=== PATIENT | male | born 1940 | race Caucasian/White ===

== ENCOUNTER → 2016-04-15 | Outpatient (CLI) | payer MEDICARE, BC ==
[2016-04-15 11:36] LABS: Blood Urea Nitrogen 20 mg/dL (9-20); Non-African American GFR(MDRD) >60 (>60 ml/min/1.73 sqM)
--- NOTE | 2016-04-15 13:50 | CT ---
EXAMINATION TYPE: CT abdomen pelvis w con DATE OF EXAM: 04/15/2016 1:32 PM REFERENCE: Previous study dated 03/23/2015 HISTORY: [id number] Rt Lower Quad Pain HISTORY: Patient complains or RLQ pain. REFERENCE: NONE CT DLP: 1724 mGy Automated exposure control for dose reduction was used. TECHNIQUE: Helical acquisition through the abdomen and pelvis was obtained following the oral ingesti on of with Oral Contrast and following intravenous administration of 100 mL of Omnipaque 300. The surendra a was reformatted in axial, coronal and sagittal projections. FINDINGS: There is minimal dependent atelectasis at the lung bases. There is no pleural or pericardi al fluid. The heart is not enlarged. Within the abdomen, the gallbladder has been removed. The liver and spleen are unremarkable. There is prominence of the common bile duct. Both adrenal glands are normal. There are multiple, simple appearing renal cysts bilaterally. The largest on the right measures 1.2 c m. Largest on the left measures 1.9 cm. The pancreas appears unremarkable. There is moderate atheromatous calcification of the visualized arterial tree. There is no significant retroperitoneal, iliac or inguinal adenopathy. There is mild calcification of the prostate. The bladder is unremarkable. There is no significant diverticular change and there is no radiographic evidence of diverticulitis. The appendix is not visualized. Small bowel loops appear unremarkable. No free fluid and no free air is seen. There is a previous anterior abdominal wall hernia repair. There is soft tissue density in the anterior abdominal wall fat on the right. This may be due to subc utaneous injections. Bruising would be another cause. There is a 2.1 x 4.1 cm soft tissue density in the inguinal region on the right. This may represent i nflammatory change. There is degenerative disc disease, hypertrophic spondylosis and facet arthropathy in the spine. IMPRESSION: 1. MULTIPLE, BILATERAL SIMPLE APPEARING RENAL CYSTS. 2. POSTSURGICAL CHANGE. 3. INDURATION OF THE ANTERIOR ABDOMINAL WALL FAT ON THE RIGHT. PLEASE CORRELATE FOR BRUISING. 4. SOFT TISSUE DENSITY IN THE INGUINAL REGION ON THE RIGHT MAY BE INFLAMMATORY IN NATURE. PLEASE MARIA EUGENAI ELATE CLINICALLY. 5. DEGENERATIVE CHANGE WITHIN THE SPINE.
== END | disposition home or self-care (01) ==
LOC: RADCTMAIN 10:44
PROVIDERS: ATTEND Surgery Plastic and Reconstructive Surgery
DX: N28.1 Cyst of kidney, acquired (principal); M79.89 Other specified soft tissue disorders; Z98.890 Other specified postprocedural states
CPT/HCPCS: 82565; 84520; 74177; 36415; Q9967

== ENCOUNTER 2016-04-18 19:22 | Emergency (ER) | payer MEDICARE, BC ==
[2016-04-18] MEDS ORDERED: predniSONE 20 MG TAB PO STA (20:18)
[2016-04-18] MEDS ORDERED: FAMOTIDINE 20 MG TAB PO STA (20:18)
[2016-04-18] MEDS ORDERED: diphenhydrAMINE 50 MG CAP PO STA (20:18)
--- NOTE | 2016-04-18 20:22 | ED ---
General Adult HPI - General Chief complaint: Skin/Abscess/Foreign Body Stated complaint: Rash all over Source: patient, family, RN notes reviewed Mode of arrival: ambulatory Limitations: no limitations - History of Present Illness Initial comments: Chief complaint and history of present illness this is a 76-year-old male here with his . Patient reports she had some itchy skin and his noted that he had redness on his back which is since gone away now is down to the legs. The patient did have IV contrast material yesterday while having a CAT scan. [place] other ALLERGIES have been penicillin in the past and a surgical scrub when he had his knee done. No difficulty with breathing, no wheezing. No hypotension. No his. Just a flushed read rash. - Related Data Home Medications Medication Instructions Recorded Confirmed INSULIN LISPRO (humaLOG) [humaLOG See Protocol SQ ACHS PRN 11/07/13 04/18/16 (formulary)] Meclizine [Antivert] 25 mg PO DAILY PRN 11/07/13 04/18/16 amLODIPine [Norvasc] 10 mg PO W/SUPPER 11/07/13 04/18/16 ALPRAZolam [Xanax] 0.5 mg PO TID PRN 03/23/15 04/18/16 Amiodarone [Cordarone] 200 mg PO W/SUPPER 03/23/15 04/18/16 Aspirin [Adult Low Dose Aspirin EC] 81 mg PO W/SUPPER 03/23/15 04/18/16 Tamsulosin HCl [Flomax] 0.4 mg PO W/SUPPER PRN 03/23/15 04/18/16 Gabapentin [Neurontin] 400 mg PO Q8HR PRN 04/07/15 04/18/16 Cholecalciferol [Vitamin D3] 1,000 unit PO DAILY 07/14/15 04/18/16 Insulin Glargine [Lantus] 52 unit SQ HS 07/14/15 04/18/16 HYDROcodone/APAP 7.5-325MG [[place] 1 tab PO Q6H PRN 09/22/15 04/18/16 7.5-325] Previous Rx's Medication Instructions Recorded Famotidine [Pepcid] 20 mg PO BID #6 tablet 04/18/16 predniSONE 20 mg PO DAILY #3 tab 04/18/16 Allergies Allergy/AdvReac Type Severity Reaction Status Date / Time Penicillins Allergy Swelling Verified 04/18/16 20:06 Surgical Scrub AdvReac Unknown Itching, Uncoded 12/29/15 12:16 Red skin Review of Systems ROS Statement: Those systems with pertinent positive or pertinent negative responses have been documented in the HPI. Review of systems no visual acuity or headache changes no chest pain shows breath GI/ problems. She does have a rash that started on the upper extremities and back canals down to the lower extremities. The upper half of the body significantly improved without having taken any medications. It was pruritic. All systems are reviewed. Past medical problems insulin-dependent diabetes, prostate cancer, hypertension, osteoarthritis, surgeries appendectomy , back surgery, gallbladder, Yaron bypass, heart cath without stents. Hernia repair, total left knee, right ankle and fibula. Also abdominal surgery for adhesions. Family history no cancers. Patient has ALLERGIES to penicillin and a surgical scrub used on his knee unknown it was Betadine or Chloraseptic. Nonsmoker nondrinker. ROS Other: All systems not noted in ROS Statement are negative. Past Medical History Past Medical History: Cancer, Diabetes Mellitus, Hypertension, Osteoarthritis ( OA) Additional Past Medical History / Comment(s): prostate cancer-2010- tx with radiation History of Any Multi-Drug Resistant Organisms: None Reported Past Surgical History: Appendectomy, Back Surgery, Cholecystectomy, Coronary Bypass/CABG, Heart Catheterization, Hernia Repair, Joint Replacement, Orthopedic Surgery Additional Past Surgical History / Comment(s): right ankle and fibula surgery, right knee replacement, 2008 triple bypass, abdominal adhesions, fatty tumor removed from neck, carpal tunnel-jono,. abdominal surgery with mesh in 2001, back nerve surgery, rotator cuff-left shoulder, hernia repair with mesh and 3 fatty tumors removed 08/15/15 Past Anesthesia/Blood Transfusion Reactions: No Reported Reaction Past Psychological History: Anxiety Smoking Status: Never smoker Past Alcohol Use History: None Reported Past Drug Use History: None Reported - Past Family History Father History Unknown: Yes Family Medical History: Cancer Additional Family Medical History / Comment(s): PROSTATE CANCER Son(s) Family Medical History: Cancer Additional Family Medical History / Comment(s): TESTICULAR CANCER Mother Family Medical History: Coronary Artery Disease (CAD), Hypertension General Exam - General Exam Comments Initial Comments: General: The patient is awake and alert, in no distress, and does not appear acutely ill. Mildly pruritic. Rash covering the upper half of the body earlier today and lower half at this time. Rash is actually improving and less pruritic per patient. reports she is monitoring his blood pressure and condition at home there are no changes. No difficulty breathing. Vital signs show temperature 98.0 pulse 83 respiratory rate 20 pulse ox 99% room air blood pressure 148/70 Eye: Pupils are equal, round and reactive to light, extra-ocular movements are intact ; there is normal conjunctiva bilaterally. No signs of icterus. Ears, nose, mouth and throat: There are moist mucous membranes and no oral lesions. Neck: The neck is supple, there is no tenderness . Cardiovascular: There is a regular rate and rhythm. No murmur, rub or gallop is appreciated. Respiratory: Lungs are clear to auscultation, respirations are non-labored, breath sounds are equal. No wheezes, stridor, rales, or rhonchi. Gastrointestinal: Soft, non-distended, non-tender abdomen without masses or organomegaly noted. There is no rebound or guarding present. No CVA tenderness. Bowel sounds are unremarkable. Back: There is no tenderness to palpation in the midline. There is no obvious deformity. Musculoskeletal: Normal ROM, no tenderness, There is no pedal edema. There is no calf tenderness or swelling. Rash on upper and lower extremities as well as skin of his back bilateral flanks. Neurological: No neuro deficits. Skin: Mildly pruritic diffuse rash upper or lower extremities. Improving since first noticed this morning. Limitations: no limitations Course Vital Signs 04/18/16 04/18/16 19:48 21:21 Temperature 98.0 F 98.3 F Pulse Rate 83 56 L Respiratory 20 18 Rate Blood Pressure 148/70 114/56 O2 Sat by Pulse 99 94 L Oximetry Medical Decision Making - Medical Decision Making Vital decision making the patient's rash is starting subside as noticed by patient and at bedside. The plans for the patient continue with Benadryl one tablet 4 times a day for the next several days as well as Pepcid 20 mg twice a day for the next several days and prednisone 20 mg one per day. He was told her sugar may go up with this and to accommodate that with his sliding scale. Advised return emergency room as a difficulty breathing or develops hives or change in otherwise follow-up with family physician Disposition Clinical Impression: Allergic reaction caused by a drug Disposition: HOME SELF-CARE Condition: Fair Instructions: Allergies (ED), General Allergic Reaction (ED) Additional Instructions: Take Benadryl one tablet 4 times daily for the next 2 or 3 days. Take Pepcid 20 mg twice daily for the next 3 days. Take prednisone 20 mg daily for the next 3 days. Follow-up with her family physician or return emergency room as needed Prescriptions: Famotidine [Pepcid] 20 mg PO BID #6 tablet predniSONE 20 mg PO DAILY #3 tab Time of Disposition: 21:42
[2016-04-18 21:23] VITALS: TEMP 98.3
[2016-04-18 21:53] VITALS: BP 127/60; PULSE 72; RESP 20
== END 2016-04-18 21:52 | disposition home or self-care (01) ==
LOC: EC 19:22
DX: R21 Rash and other nonspecific skin eruption (principal); T36.0X5A Adverse effect of penicillins, initial encounter; E11.9 Type 2 diabetes mellitus without complications; I10 Essential (primary) hypertension; M19.90 Unspecified osteoarthritis, unspecified site; F41.9 Anxiety disorder, unspecified; Z85.46 Personal history of malignant neoplasm of prostate; Z79.4 Long term (current) use of insulin; Z79.82 Long term (current) use of aspirin; Z79.899 Other long term (current) drug therapy; Z88.0 Allergy status to penicillin; Z91.048 Other nonmedicinal substance allergy status; Z98.61 Coronary angioplasty status
CPT/HCPCS: 99282; J7512

== ENCOUNTER 2016-04-20 01:10 | Emergency (ER) | payer MEDICARE, BC ==
[2016-04-20 01:17] VITALS: BP 146/70; PULSE 81; RESP 20; TEMP 98
[2016-04-20] MEDS ORDERED: hydrOXYzine HCL 25 MG TAB PO STA (01:35)
--- NOTE | 2016-04-20 02:04 | ED ---
Skin/Abscess/FB HPI - General Chief complaint: Skin/Abscess/Foreign Body Stated complaint: rash Time Seen by Provider: 04/20/16 01:30 Source: patient, RN notes reviewed, old records reviewed Mode of arrival: ambulatory Limitations: no limitations - History of Present Illness Initial comments: 76 year old male with with chief complaint of increased itchy skin in legs. Patient was scene by attending physician Dr. Foster last night in ER for similar symptoms. Patient placed on steroids, pepcid, and benadryl as rash is related to recent abdominal and pelvis CT performed with contrast. Patient reports he is allergic to penicillin and surgical scrubs. No swelling of tongue , difficulty breathing. Patient reports that the rash decreased significantly, but the itching became worse after taking a shower. - Related Data Home Medications Medication Instructions Recorded Confirmed INSULIN LISPRO (humaLOG) [humaLOG See Protocol SQ ACHS PRN 11/07/13 04/18/16 (formulary)] Meclizine [Antivert] 25 mg PO DAILY PRN 11/07/13 04/18/16 amLODIPine [Norvasc] 10 mg PO W/SUPPER 11/07/13 04/18/16 ALPRAZolam [Xanax] 0.5 mg PO TID PRN 03/23/15 04/18/16 Amiodarone [Cordarone] 200 mg PO W/SUPPER 03/23/15 04/18/16 Aspirin [Adult Low Dose Aspirin EC] 81 mg PO W/SUPPER 03/23/15 04/18/16 Tamsulosin HCl [Flomax] 0.4 mg PO W/SUPPER PRN 03/23/15 04/18/16 Gabapentin [Neurontin] 400 mg PO Q8HR PRN 04/07/15 04/18/16 Cholecalciferol [Vitamin D3] 1,000 unit PO DAILY 07/14/15 04/18/16 Insulin Glargine [Lantus] 52 unit SQ HS 07/14/15 04/18/16 HYDROcodone/APAP 7.5-325MG [[place] 1 tab PO Q6H PRN 09/22/15 04/18/16 7.5-325] Previous Rx's Medication Instructions Recorded Famotidine [Pepcid] 20 mg PO BID #6 tablet 04/18/16 predniSONE 20 mg PO DAILY #3 tab 04/18/16 hydrOXYzine HCL [Atarax] 25 mg PO TID PRN #9 tab 04/20/16 Allergies Allergy/AdvReac Type Severity Reaction Status Date / Time Penicillins Allergy Swelling Verified 04/20/16 01:17 Surgical Scrub AdvReac Unknown Itching, Uncoded 04/20/16 01:17 Red skin Review of Systems ROS Statement: Those systems with pertinent positive or pertinent negative responses have been documented in the HPI. ROS Other: All systems not noted in ROS Statement are negative. Past Medical History Past Medical History: Cancer, Diabetes Mellitus, Hypertension, Osteoarthritis ( OA) Additional Past Medical History / Comment(s): prostate cancer-2011- tx with radiation History of Any Multi-Drug Resistant Organisms: None Reported Past Surgical History: Appendectomy, Back Surgery, Cholecystectomy, Coronary Bypass/CABG, Heart Catheterization, Hernia Repair, Joint Replacement, Orthopedic Surgery Additional Past Surgical History / Comment(s): right ankle and fibula surgery, right knee replacement, 2008 triple bypass, abdominal adhesions, fatty tumor removed from neck, carpal tunnel-jono,. abdominal surgery with mesh in 2001, back nerve surgery, rotator cuff-left shoulder, hernia repair with mesh and 3 fatty tumors removed 08/15/15 Past Anesthesia/Blood Transfusion Reactions: No Reported Reaction Past Psychological History: Anxiety Smoking Status: Never smoker Past Alcohol Use History: None Reported Past Drug Use History: None Reported - Past Family History Father History Unknown: Yes Family Medical History: Cancer Additional Family Medical History / Comment(s): PROSTATE CANCER Son(s) Family Medical History: Cancer Additional Family Medical History / Comment(s): TESTICULAR CANCER Mother Family Medical History: Coronary Artery Disease (CAD), Hypertension General Exam - General Exam Comments Initial Comments: Pleasant 76 year old male, no distress. Evidence of rash over lower legs. Limitations: no limitations General appearance: alert, in no apparent distress Head exam: Present: atraumatic, normocephalic, normal inspection Eye exam: Present: normal appearance, PERRL, EOMI. Absent: scleral icterus, conjunctival injection, periorbital swelling ENT exam: Present: normal exam, mucous membranes moist Neck exam: Present: normal inspection. Absent: tenderness, meningismus, lymphadenopathy Respiratory exam: Present: normal lung sounds bilaterally. Absent: respiratory distress, wheezes, rales, rhonchi, stridor Cardiovascular Exam: Present: regular rate, normal rhythm, normal heart sounds. Absent: systolic murmur, diastolic murmur, rubs, gallop, clicks GI/Abdominal exam: Present: soft, normal bowel sounds. Absent: distended, tenderness, guarding, rebound, rigid Extremities exam: Present: normal inspection, full ROM, normal capillary refill. Absent: tenderness, pedal edema, joint swelling, calf tenderness Back exam: Present: normal inspection Neurological exam: Present: alert, oriented X3, CN II-XII intact Psychiatric exam: Present: normal affect, normal mood Skin exam: Present: warm, dry, intact, normal color, rash (erythematous pruritic rash over bilateral lower extremities. Rash is much improved per Dr. Foster, whom evaluated patient yesterday. ) Course Vital Signs 04/20/16 01:15 Temperature 98 F Pulse Rate 81 Respiratory 20 Rate Blood Pressure 146/70 O2 Sat by Pulse 97 Oximetry Medical Decision Making - Medical Decision Making Patient is a 76 year old male with pruritic rash over bilateral legs related to iodine from a CT scan 2 days ago. Patient was seen in the [facility] by Dr. Foster yesterday for same complaint, and prescribed benadryl, pepcid, and prednisone. Patient reports to taking these medication but the pruritis increased after taking a shower. Dr. Foster reports rash is much imprvoed from yesterday, and recommends adding on atarax. Patient given initial dose in [facility] and placed on atarax for 3 days. Patient advised to follow up with surgeon for results of CT scan. Patient denies chest pain, short of breath, tongue swelling, nausea, vomiting, diarrhea. Patient advised to continue previous Rx and add atarax. Patient understands treatmentplan and will comply. Disposition Clinical Impression: Allergic reaction caused by a drug, Pruritic rash Disposition: HOME SELF-CARE Condition: Good Additional Instructions: Continue previous prescriptions of Benadryl, Pepcid and prednisone. Patient advised that after Atarax on. Follow-up with PCP. Avoid hot showers. Return to the emergency department if any alarming signs or symptoms occur. Prescriptions: hydrOXYzine HCL [Atarax] 25 mg PO TID PRN #9 tab PRN Reason: Itching Referrals: Lev Anthony MD [Primary Care Provider] - 1-2 days Time of Disposition: 02:04
== END 2016-04-20 02:05 | disposition home or self-care (01) ==
LOC: EC 01:10
DX: L29.9 Pruritus, unspecified (principal); T50.8X5A Adverse effect of diagnostic agents, initial encounter; E11.9 Type 2 diabetes mellitus without complications; I10 Essential (primary) hypertension; M19.90 Unspecified osteoarthritis, unspecified site; Z85.46 Personal history of malignant neoplasm of prostate; F41.9 Anxiety disorder, unspecified; Z79.899 Other long term (current) drug therapy; Z79.82 Long term (current) use of aspirin; Z79.4 Long term (current) use of insulin; Z88.0 Allergy status to penicillin; Z91.048 Other nonmedicinal substance allergy status
CPT/HCPCS: 99283

== ENCOUNTER 2016-04-30 17:14 | Observation (INO) | payer MEDICARE, BC ==
[2016-04-30] MEDS ORDERED: SODIUM CHLORIDE 0.9% 500 ML IV STA (17:39)
--- NOTE | 2016-04-30 17:41 | ED ---
General Adult HPI - General Source: patient, family, RN notes reviewed Mode of arrival: wheelchair Limitations: no limitations <Enrique Cintron - Last Filed: 04/30/16 19:53> <Luis Foster - Last Filed: 04/30/16 22:26> - General Chief complaint: Abdominal Pain Stated complaint: Constipation Sent fr Dr Arroyo Time Seen by Provider: 04/30/16 17:33 - History of Present Illness Initial comments: Patient 76-year-old male who presents emergency room today with chief complaint of symptoms of constipation. Patient does admit that he's not had a bowel movement 4 days. Does admit that he was at [facility] ER yesterday had x-rays and labs obtained. States was given an enema. He states he was unable to have bowel movement today. Does admit that he's had decreased flatulence. Does admit to increased abdominal pain distention. Patient admits to several abdominal surgeries in the past. He denies any other complaints or symptoms. Patient denies any recent fever, chills, shortness of breath, chest pain, back pain, nausea or vomiting, numbness or tingling, dysuria or hematuria , diarrhea, headaches or visual changes, or any other complaints. (Enrique Cintron) - Related Data Home Medications Medication Instructions Recorded Confirmed INSULIN LISPRO (humaLOG) [humaLOG See Protocol SQ ACHS PRN 11/07/13 04/30/16 (formulary)] Meclizine [Antivert] 25 mg PO DAILY PRN 11/07/13 04/30/16 amLODIPine [Norvasc] 10 mg PO W/SUPPER 11/07/13 04/30/16 ALPRAZolam [Xanax] 0.5 mg PO TID PRN 03/23/15 04/30/16 Amiodarone [Cordarone] 200 mg PO W/SUPPER 03/23/15 04/30/16 Aspirin [Adult Low Dose Aspirin EC] 81 mg PO W/SUPPER 03/23/15 04/30/16 Tamsulosin HCl [Flomax] 0.4 mg PO W/SUPPER PRN 03/23/15 04/30/16 Gabapentin [Neurontin] 400 mg PO Q8HR PRN 04/07/15 04/30/16 Cholecalciferol [Vitamin D3] 1,000 unit PO DAILY 07/14/15 04/30/16 Insulin Glargine [Lantus] 52 unit SQ HS 07/14/15 04/30/16 HYDROcodone/APAP 7.5-325MG [[place] 1 tab PO Q6H PRN 09/22/15 04/30/16 7.5-325] fentaNYL 75MCG/HR PATCH [Duragesic 1 patch TRANSDERM Q48H 04/30/16 04/30/16 75MCG/HR] Allergies Allergy/AdvReac Type Severity Reaction Status Date / Time Penicillins Allergy Swelling Verified 04/30/16 18:02 Surgical Scrub AdvReac Unknown Itching, Uncoded 04/30/16 17:27 Red skin Review of Systems ROS Other: All systems not noted in ROS Statement are negative. <Enrique Cintron - Last Filed: 04/30/16 19:53> ROS Other: All systems not noted in ROS Statement are negative. <Luis Foster - Last Filed: 04/30/16 22:26> ROS Statement: Those systems with pertinent positive or pertinent negative responses have been documented in the HPI. Past Medical History Past Medical History: Cancer, Diabetes Mellitus, Hypertension, Osteoarthritis ( OA) Additional Past Medical History / Comment(s): prostate cancer-2010- tx with radiation History of Any Multi-Drug Resistant Organisms: None Reported Past Surgical History: Appendectomy, Back Surgery, Cholecystectomy, Coronary Bypass/CABG, Heart Catheterization, Hernia Repair, Joint Replacement, Orthopedic Surgery Additional Past Surgical History / Comment(s): right ankle and fibula surgery, right knee replacement, 2008 triple bypass, abdominal adhesions, fatty tumor removed from neck, carpal tunnel-jono,. abdominal surgery with mesh in 2001, back nerve surgery, rotator cuff-left shoulder, hernia repair with mesh and 3 fatty tumors removed 08/15/15 Past Anesthesia/Blood Transfusion Reactions: No Reported Reaction Past Psychological History: Anxiety Smoking Status: Never smoker Past Alcohol Use History: None Reported Past Drug Use History: None Reported - Past Family History Father History Unknown: Yes Family Medical History: Cancer Additional Family Medical History / Comment(s): PROSTATE CANCER Son(s) Family Medical History: Cancer Additional Family Medical History / Comment(s): TESTICULAR CANCER Mother Family Medical History: Coronary Artery Disease (CAD), Hypertension <Enrique Cintron - Last Filed: 04/30/16 19:53> General Exam Limitations: no limitations <Enrique Cintron - Last Filed: 04/30/16 19:53> <Luis Foster - Last Filed: 04/30/16 22:26> - General Exam Comments Initial Comments: General: The patient is awake and alert, in no distress, and does not appear acutely ill. Eye: Pupils are equal, round and reactive to light, extra-ocular movements are intact. No nystagmus. There is normal conjunctiva bilaterally. No signs of icterus. Ears, nose, mouth and throat: There are moist mucous membranes and no oral lesions. Neck: The neck is supple, there is no tenderness or JVD. Cardiovascular: There is a regular rate and rhythm. No murmur, rub or gallop is appreciated. Respiratory: Lungs are clear to auscultation, respirations are non-labored, breath sounds are equal. No wheezes, stridor, rales, or rhonchi. Gastrointestinal: Normal exam. Normal bowel sounds. Abdomen soft on palpation. Patient does have tenderness and lower quadrants greater on the left than the right. No rebound tenderness or guarding. No CVA tenderness. Musculoskeletal: Normal ROM, no tenderness. Strength 5/5. Sensation intact. Pulses equal bilaterally 2+. Neurological: A&O x 3. CN II-XII intact, There are no obvious motor or sensory deficits. Coordination appears grossly intact. Speech is normal. Skin: Skin is warm and dry and no rashes or lesions are noted. Psychiatric: Cooperative, appropriate mood & affect, normal judgment. (Enrique Cintron) Course <Enrique Cintron - Last Filed: 04/30/16 19:53> <Luis Foster - Last Filed: 04/30/16 22:26> Vital Signs 04/30/16 04/30/16 17:23 18:55 Temperature 98.4 F Pulse Rate 78 75 Respiratory 20 18 Rate Blood Pressure 143/72 113/54 O2 Sat by Pulse 92 L 95 Oximetry - Reevaluation(s) Reevaluation #1: 04/30/16 19:53 Patient's blood work reviewed. Patient's urinalysis and CT currently pending at this time. Case discussed and signed out to attending physician Dr. Foster. ( Enrique Cintron) Medical Decision Making - Lab Data Result diagrams: 04/30/16 17:47 04/30/16 17:47 <Enrique Cintron - Last Filed: 04/30/16 19:53> - Lab Data Result diagrams: 04/30/16 17:47 04/30/16 17:47 <Luis Foster - Last Filed: 04/30/16 22:26> - Medical Decision Making Medical decision making patient's white count 8.4 hemoglobin 14 hematocrit of 43. Glucose 247. Potassium within normal limits. The patient's BUN 17 creatinine 0.9 the GFR greater than 60. X-ray of the abdomen was done and reviewed by radiologist his impression is nonobstructive bowel gas pattern. Postsurgical changes of the lumbar spine and abdomen. As read by CT of the abdomen and pelvis was done and reviewed by radiologist his final impression is moderate amount of retained stool throughout the entirety of the colon in this patient with complaint of constipation. No evidence of dilated bowel or bowel obstruction. #2 persistent soft tissue swelling and skin thickening in the right abdominal wall which may be related to postsurgical changes or posttraumatic changes. #3 redemonstration of multiple bilateral simple-appearing renal cyst. Number for postsurgical degenerative changes of the lumbar spine. As read by Dr. Nino Patient had a bowel movement feeling better. Wants to go home. Discharged home to care of family. He'll continue with Benadryl as needed for skin ALLERGIC reaction. (Luis Foster) - Lab Data Lab Results 04/30/16 04/30/16 04/30/16 Range/Units 17:47 17:47 17:47 WBC 8.4 (3.8-10.6) k/uL RBC 4.84 (4.30-5.90) m/uL Hgb 14.6 (13.0-17.5) gm/dL Hct 43.4 (39.0-53.0) % MCV 89.7 (80.0-100.0) fL MCH 30.2 (25.0-35.0) pg MCHC 33.6 (31.0-37.0) g/dL RDW 13.1 (11.5-15.5) % Plt Count 213 (150-450) k/uL Neutrophils % 54 % Lymphocytes % 30 % Monocytes % 6 % Eosinophils % 5 % Basophils % 1 % Neutrophils # 4.5 (1.3-7.7) k/uL Lymphocytes # 2.5 (1.0-4.8) k/uL Monocytes # 0.5 (0-1.0) k/uL Eosinophils # 0.4 (0-0.7) k/uL Basophils # 0.1 (0-0.2) k/uL Sodium 137 (137-145) mmol/L Potassium 4.6 (3.5-5.1) mmol/L Chloride 100 (98-107) mmol/L Carbon Dioxide 26 (22-30) mmol/L Anion Gap 11 mmol/L BUN 17 (9-20) mg/dL Creatinine 0.90 (0.66-1.25) mg/dL Est GFR (MDRD) Af Amer >60 (>60 ml/min/1.73 sqM) Est GFR (MDRD) Non-Af >60 (>60 ml/min/1.73 sqM) Glucose 247 H (74-99) mg/dL Plasma Lactic Acid Ned 1.3 (0.7-2.0) mmol/L Calcium 9.4 (8.4-10.2) mg/dL Total Bilirubin 0.6 (0.2-1.3) mg/dL AST 22 (17-59) U/L ALT 35 (21-72) U/L Alkaline Phosphatase 68 (38-126) U/L Total Protein 6.7 (6.3-8.2) g/dL Albumin 3.8 (3.5-5.0) g/dL Amylase 33 (30-110) U/L Lipase 26 (23-300) U/L Urine Color Urine Appearance (Clear) Urine pH (5.0-8.0) Ur Specific [place] (1.001-1.035) Urine Protein (Negative) Urine Glucose (UA) (Negative) Urine Ketones (Negative) Urine Blood (Negative) Urine Nitrate (Negative) Urine Bilirubin (Negative) Urine Urobilinogen (<2.0) mg/dL Ur Leukocyte Esterase (Negative) 04/30/16 Range/Units 19:20 WBC (3.8-10.6) k/uL RBC (4.30-5.90) m/uL Hgb (13.0-17.5) gm/dL Hct (39.0-53.0) % MCV (80.0-100.0) fL MCH (25.0-35.0) pg MCHC (31.0-37.0) g/dL RDW (11.5-15.5) % Plt Count (150-450) k/uL Neutrophils % % Lymphocytes % % Monocytes % % Eosinophils % % Basophils % % Neutrophils # (1.3-7.7) k/uL Lymphocytes # (1.0-4.8) k/uL Monocytes # (0-1.0) k/uL Eosinophils # (0-0.7) k/uL Basophils # (0-0.2) k/uL Sodium (137-145) mmol/L Potassium (3.5-5.1) mmol/L Chloride (98-107) mmol/L Carbon Dioxide (22-30) mmol/L Anion Gap mmol/L BUN (9-20) mg/dL Creatinine (0.66-1.25) mg/dL Est GFR (MDRD) Af Amer (>60 ml/min/1.73 sqM) Est GFR (MDRD) Non-Af (>60 ml/min/1.73 sqM) Glucose (74-99) mg/dL Plasma Lactic Acid Ned (0.7-2.0) mmol/L Calcium (8.4-10.2) mg/dL Total Bilirubin (0.2-1.3) mg/dL AST (17-59) U/L ALT (21-72) U/L Alkaline Phosphatase (38-126) U/L Total Protein (6.3-8.2) g/dL Albumin (3.5-5.0) g/dL Amylase (30-110) U/L Lipase (23-300) U/L Urine Color Yellow Urine Appearance Clear (Clear) Urine pH 5.5 (5.0-8.0) Ur Specific [place] 1.047 H (1.001-1.035) Urine Protein Negative (Negative) Urine Glucose (UA) Negative (Negative) Urine Ketones Trace H (Negative) Urine Blood Negative (Negative) Urine Nitrate Negative (Negative) Urine Bilirubin Negative (Negative) Urine Urobilinogen <2.0 (<2.0) mg/dL Ur Leukocyte Esterase Negative (Negative) Disposition <Enrique Cintron - Last Filed: 04/30/16 19:53> Time of Disposition: 22:26 <Luis Foster - Last Filed: 04/30/16 22:26> Clinical Impression: Constipation Disposition: HOME SELF-CARE Condition: Fair Instructions: Constipation (ED), High Fiber Diet (ED), Fleet Enema (ED) Additional Instructions: Increase fluids use [id number] Colace. Follow-up family physician
[2016-04-30] MEDS ORDERED: BISACODYL 10 MG SUPP RECTAL STA (17:49)
[2016-04-30 18:00] LABS: Basophils # (A) 0.1 k/uL (0-0.2); Basophils % (A) 1 %; CH 30.4; CHCM 34.1; Eosinophils # (A) 0.4 k/uL (0-0.7); Eosinophils % (A) 5 %; HCT 43.4 % (39.0-53.0); HGB 14.6 gm/dL (13.0-17.5); Luc # (Auto) 0.36; Luc % (Auto) 4; Lymphocytes # (A) 2.5 k/uL (1.0-4.8); Lymphocytes % (A) 30 %; MCH 30.2 pg (25.0-35.0); MCHC 33.6 g/dL (31.0-37.0); MCV 89.7 fL (80.0-100.0); Mean Platelet Volume 9.1; Monocytes # (A) 0.5 k/uL (0-1.0); Monocytes % (A) 6 %; Neutrophils # (A) 4.5 k/uL (1.3-7.7); Neutrophils % (A) 54 %; RBC 4.84 m/uL (4.30-5.90); RDW 13.1 % (11.5-15.5); WBC 8.4 k/uL (3.8-10.6); WBC (Perox) 8.01
[2016-04-30 18:20] LABS: ALT 35 U/L (21-72); AST 22 U/L (17-59); Alkaline Phosphatase 68 U/L (38-126); Amylase 33 U/L (30-110); Anion Gap 11 mmol/L; Blood Urea Nitrogen 17 mg/dL (9-20); Calcium 9.4 mg/dL (8.4-10.2); Carbon Dioxide 26 mmol/L (22-30); Chloride 100 mmol/L (98-107); Glucose 247 mg/dL (74-99); Non-African American GFR(MDRD) >60 (>60 ml/min/1.73 sqM); Potassium 4.6 mmol/L (3.5-5.1); Sodium 137 mmol/L (137-145); Total Bilirubin 0.6 mg/dL (0.2-1.3); Total Protein 6.7 g/dL (6.3-8.2)
--- NOTE | 2016-04-30 18:23 | XR ---
EXAMINATION TYPE: XR KUB DATE OF EXAM: 04/30/2016 6:06 PM COMPARISON: Abdominal KUB dated 12/19/2015. HISTORY: Constipation and abdominal pain. TECHNIQUE: Single view upright abdominal radiograph was obtained. FINDINGS: There is a nonobstructive bowel gas pattern. There is a small amount of retained fecal debr is throughout the colon. Postsurgical changes are seen in the abdomen. 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 Degenerative changes are seen of the lumbosacral spine. Postsurgic al changes of laminectomy defects are also appreciated of the lumbar spine. Intact midline sternotomy wires and left upper quadrant surgical clips are appreciated. No gross abnormality within the visual ized lungs. IMPRESSION: Nonobstructive bowel gas pattern. Postsurgical changes of the lumbar spine and abdomen.
[2016-04-30] MEDS ORDERED: RX INFO: IV CONTRAST WAS GIVEN 1 EACH MISC MISCELLANE PRN (18:39)
[2016-04-30] MEDS ORDERED: HYDROmorphone 1 MG/ML 1 ML SYRINGE IVP STA (19:28)
[2016-04-30] MEDS ORDERED: ONDANSETRON 4 MG/2 ML VIAL IVP STA (19:28)
[2016-04-30 20:06] LABS: Appearance,Urine Clear (Clear); Bilirubin,Urine Negative (Negative); Glucose,Urine (UA) Negative (Negative); Ketones,Urine Trace (Negative); Leukocyte Esterase,Urine Negative (Negative); Nitrite,Urine Negative (Negative); PH, Urine 5.5 (5.0-8.0); Protein,Urine Negative (Negative); UA Billing (MACRO vs. MICRO) CHEM; Urobilinogen,Urine <2.0 mg/dL (<2.0)
[2016-04-30 20:07] LABS: Specific Gravity,Urine 1.047 (1.001-1.035)
--- NOTE | 2016-04-30 20:09 | CT ---
EXAMINATION TYPE: CT abdomen pelvis w con DATE OF EXAM: 04/30/2016 7:16 PM COMPARISON: NONE HISTORY: Patient complains of constipation. CT DLP: 1633.00 mGycm Automated exposure control for dose reduction was used. TECHNIQUE: Helical acquisition of images was performed from the lung bases through the pelvis. CONTRAST: Performed without Oral Contrast and with IV Contrast, patient injected with 100 mL of Omnipaque 300. FINDINGS: LUNG BASES: Minimal bibasilar subsegmental atelectasis is seen. LIVER/GB: No significant abnormality is appreciated. Gallbladder is again surgically absent and there is minimal intrahepatic biliary ductal dilatation and extrahepatic biliary ductal dilatation as a re sult of postsurgical changes. PANCREAS: Pancreas is atrophic. SPLEEN: No significant abnormality is seen. ADRENALS: No significant abnormality is seen. KIDNEYS: Again there are multiple, similar appearing bilateral renal cysts. The largest on the right again measures 1.2 cm and the largest on the left measures 1.9 cm. RETROPERITONEAL ADENOPATHY: None visualized REPRODUCTIVE ORGANS: Prostate is again heterogenous. URINARY BLADDER: No significant abnormality is seen. PELVIC ADENOPATHY: None visualized. OSSEOUS STRUCTURES: Postsurgical changes of the lumbar spine and degenerative changes of the thoraco lumbar spine. BOWEL: Sigmoid diverticula without evidence of diverticulitis are again noted. There is no evidence of dilated bowel. Moderate amount of retained feces is seen throughout the nondilated colon in its en tirety. OTHER: Right abdominal wall subcutaneous soft tissue infiltration and skin thickening is again noted as well as focal emphysematous changes and postsurgical changes of the midline abdomen. Findings may be postsurgical or posttraumatic in nature. Additionally small bowel loops extend into the proximal a spect of the right inguinal canal without evidence of obstruction. IMPRESSION: 1. MODERATE AMOUNT OF RETAINED STOOL THROUGHOUT THE ENTIRETY OF THE COLON IN THIS PATIENT WITH COMPLA INT OF CONSTIPATION. NO EVIDENCE OF DILATED BOWEL OR BOWEL OBSTRUCTION. 2. PERSISTENT SOFT TISSUE SWELLING AND SKIN THICKENING IN THE RIGHT ABDOMINAL WALL WHICH MAY BE RELAT ED TO POSTSURGICAL CHANGES OR POSTTRAUMATIC CHANGES. 3. REDEMONSTRATION OF MULTIPLE BILATERAL SIMPLE APPEARING RENAL CYSTS. 4. POSTSURGICAL AND DEGENERATIVE CHANGES OF THE LUMBAR SPINE.
[2016-04-30] MEDS ORDERED: FAMOTIDINE 20 MG/2 ML VIAL IV STA (22:27)
[2016-04-30] MEDS ORDERED: diphenhydrAMINE 50 MG/ML 1 ML VIAL IVP STA ×2 (22:27→23:36)
[2016-04-30] MEDS ORDERED: methylPREDNISolone SOD SUCCI 125 MG/2 ML VIAL IV STA (23:20)
[2016-04-30 23:28] LABS: Glucose,Whole Blood 206 mg/dL (75-99)
--- NOTE | 2016-04-30 23:38 | ED ---
Medical Decision Making - Medical Decision Making The patient was noted to have a rash and shaking/shivering after he was being discharged after a CAT scan of the abdomen. The presentation appears be consistent with a reaction to the contrast. He does demonstrate marked erythema over the trunk. Lung sounds are clear he is having no difficulty breathing he is awake alert oriented 3. He will receive IV solumedrol is as well as 25 more Benadryl. He'll be observed at this time. Patient still having erythema itchiness and shakes he will be admitted I did discuss case with Dr. Gentile who is covering Dr. Anthony today. The patient will be continued on IV steroids IV Benadryl and Pepcid. 4 - Lab Data Result diagrams: 04/30/16 17:47 04/30/16 17:47 Lab Results 04/30/16 04/30/16 04/30/16 Range/Units 17:47 17:47 17:47 WBC 8.4 (3.8-10.6) k/uL RBC 4.84 (4.30-5.90) m/uL Hgb 14.6 (13.0-17.5) gm/dL Hct 43.4 (39.0-53.0) % MCV 89.7 (80.0-100.0) fL MCH 30.2 (25.0-35.0) pg MCHC 33.6 (31.0-37.0) g/dL RDW 13.1 (11.5-15.5) % Plt Count 213 (150-450) k/uL Neutrophils % 54 % Lymphocytes % 30 % Monocytes % 6 % Eosinophils % 5 % Basophils % 1 % Neutrophils # 4.5 (1.3-7.7) k/uL Lymphocytes # 2.5 (1.0-4.8) k/uL Monocytes # 0.5 (0-1.0) k/uL Eosinophils # 0.4 (0-0.7) k/uL Basophils # 0.1 (0-0.2) k/uL Sodium 137 (137-145) mmol/L Potassium 4.6 (3.5-5.1) mmol/L Chloride 100 (98-107) mmol/L Carbon Dioxide 26 (22-30) mmol/L Anion Gap 11 mmol/L BUN 17 (9-20) mg/dL Creatinine 0.90 (0.66-1.25) mg/dL Est GFR (MDRD) Af Amer >60 (>60 ml/min/1.73 sqM) Est GFR (MDRD) Non-Af >60 (>60 ml/min/1.73 sqM) Glucose 247 H (74-99) mg/dL POC Glucose (mg/dL) (75-99) mg/dL POC Glu Manager Rental ID Plasma Lactic Acid Ned 1.3 (0.7-2.0) mmol/L Calcium 9.4 (8.4-10.2) mg/dL Total Bilirubin 0.6 (0.2-1.3) mg/dL AST 22 (17-59) U/L ALT 35 (21-72) U/L Alkaline Phosphatase 68 (38-126) U/L Total Protein 6.7 (6.3-8.2) g/dL Albumin 3.8 (3.5-5.0) g/dL Amylase 33 (30-110) U/L Lipase 26 (23-300) U/L Urine Color Urine Appearance (Clear) Urine pH (5.0-8.0) Ur Specific [place] (1.001-1.035) Urine Protein (Negative) Urine Glucose (UA) (Negative) Urine Ketones (Negative) Urine Blood (Negative) Urine Nitrate (Negative) Urine Bilirubin (Negative) Urine Urobilinogen (<2.0) mg/dL Ur Leukocyte Esterase (Negative) 04/30/16 04/30/16 Range/Units 19:20 23:25 WBC (3.8-10.6) k/uL RBC (4.30-5.90) m/uL Hgb (13.0-17.5) gm/dL Hct (39.0-53.0) % MCV (80.0-100.0) fL MCH (25.0-35.0) pg MCHC (31.0-37.0) g/dL RDW (11.5-15.5) % Plt Count (150-450) k/uL Neutrophils % % Lymphocytes % % Monocytes % % Eosinophils % % Basophils % % Neutrophils # (1.3-7.7) k/uL Lymphocytes # (1.0-4.8) k/uL Monocytes # (0-1.0) k/uL Eosinophils # (0-0.7) k/uL Basophils # (0-0.2) k/uL Sodium (137-145) mmol/L Potassium (3.5-5.1) mmol/L Chloride (98-107) mmol/L Carbon Dioxide (22-30) mmol/L Anion Gap mmol/L BUN (9-20) mg/dL Creatinine (0.66-1.25) mg/dL Est GFR (MDRD) Af Amer (>60 ml/min/1.73 sqM) Est GFR (MDRD) Non-Af (>60 ml/min/1.73 sqM) Glucose (74-99) mg/dL POC Glucose (mg/dL) 206 H (75-99) mg/dL POC Glu Manager Rental ID Flor Hernandez Plasma Lactic Acid Ned (0.7-2.0) mmol/L Calcium (8.4-10.2) mg/dL Total Bilirubin (0.2-1.3) mg/dL AST (17-59) U/L ALT (21-72) U/L Alkaline Phosphatase (38-126) U/L Total Protein (6.3-8.2) g/dL Albumin (3.5-5.0) g/dL Amylase (30-110) U/L Lipase (23-300) U/L Urine Color Yellow Urine Appearance Clear (Clear) Urine pH 5.5 (5.0-8.0) Ur Specific [place] 1.047 H (1.001-1.035) Urine Protein Negative (Negative) Urine Glucose (UA) Negative (Negative) Urine Ketones Trace H (Negative) Urine Blood Negative (Negative) Urine Nitrate Negative (Negative) Urine Bilirubin Negative (Negative) Urine Urobilinogen <2.0 (<2.0) mg/dL Ur Leukocyte Esterase Negative (Negative) Disposition Clinical Impression: Constipation, Allergic reaction to contrast material Disposition: ADMITTED IP TO THIS [facility] Condition: Fair Instructions: Constipation (ED), High Fiber Diet (ED), Fleet Enema (ED) Additional Instructions: Increase fluids use [id number] Colace. Follow-up family physician
[2016-05-01] MEDS ORDERED: ACETAMINOPHEN IV (For NPO) 1,000 MG in SALINE 1 100ML.BAG IVPB STA (00:33)
[2016-05-01] MEDS ORDERED: NALOXONE 0.4 MG/ML 1 ML VIAL IV PRN (01:17)
[2016-05-01] MEDS ORDERED: ACETAMINOPHEN TAB 325 MG TAB PO PRN (01:17)
[2016-05-01] MEDS ORDERED: ALPRAZolam 0.5 MG TAB PO PRN (01:21)
[2016-05-01] MEDS ORDERED: MECLIZINE 25 MG TAB PO PRN (01:21)
[2016-05-01] MEDS ORDERED: TAMSULOSIN 0.4 MG CAP.ER.24H PO PRN (01:21)
[2016-05-01] MEDS ORDERED: GABAPENTIN 400 MG CAP PO PRN (01:21)
[2016-05-01] MEDS: HYDROcodone/APAP 7.5-325MG 1 EACH TAB PO PRN ×2 (02:12→14:58)
[2016-05-01 02:45] VITALS: BMI 36.0
[2016-05-01 05:06] LABS: Glucose,Whole Blood 362 mg/dL (75-99)
[2016-05-01] MEDS: INSULIN LISPRO (humaLOG) 300 UNIT/3 ML VIAL SQ SCH ×3 (05:08→12:57)
[2016-05-01] MEDS: diphenhydrAMINE 50 MG/ML 1 ML VIAL IVP SCH ×2 (05:16→12:20)
[2016-05-01] MEDS: methylPREDNISolone SOD SUCCI 125 MG/2 ML VIAL IV SCH ×2 (05:16→12:53)
[2016-05-01] MEDS: SODIUM CHLORIDE 0.9% 1,000 ML IV SCH ×2 (05:17→16:39)
[2016-05-01 06:46] LABS: Glucose,Whole Blood 362 mg/dL (75-99)
[2016-05-01 08:39] VITALS: RESP 16
[2016-05-01] MEDS ORDERED: CHOLECALCIFEROL 1,000 UNIT TAB PO SCH (09:00)
[2016-05-01] MEDS ORDERED: FAMOTIDINE 20 MG/2 ML VIAL IV SCH (09:00)
[2016-05-01 11:31] VITALS: BP 108/53
[2016-05-01 12:15] LABS: Glucose,Whole Blood 371 mg/dL (75-99)
[2016-05-01 14:26] LABS: Hemoglobin A1C 8.7 % (4.2-6.1)
[2016-05-01 15:24] VITALS: PULSE 65; TEMP 97.5
[2016-05-01] MEDS ORDERED: AMIODARONE 200 MG TAB PO SCH (17:30)
[2016-05-01] MEDS ORDERED: ASPIRIN 81 MG CHEW PO SCH (17:30)
[2016-05-01] MEDS ORDERED: amLODIPine 10 MG TAB PO SCH (17:30)
[2016-05-01] MEDS ORDERED: INSULIN GLARGINE 100 UNIT/ML 10 ML VIAL SQ SCH (21:00)
== END 2016-05-01 17:29 | disposition home or self-care (01) ==
LOC: EC 17:14 → 3OBS 05-01 01:17
PROVIDERS: ADMIT Family Medicine; ATTEND Family Medicine
DX: K59.00 Constipation, unspecified (principal); R10.9 Unspecified abdominal pain; Z91.041 Radiographic dye allergy status; R21 Rash and other nonspecific skin eruption; E11.9 Type 2 diabetes mellitus without complications; I10 Essential (primary) hypertension; N28.1 Cyst of kidney, acquired; Z79.82 Long term (current) use of aspirin; Z85.46 Personal history of malignant neoplasm of prostate; Z95.1 Presence of aortocoronary bypass graft; Z79.4 Long term (current) use of insulin; Z88.0 Allergy status to penicillin; M19.90 Unspecified osteoarthritis, unspecified site; F41.9 Anxiety disorder, unspecified; R23.4 Changes in skin texture
CPT/HCPCS: 36415; 80053; 82150; 83036; 83605; 83690; 85025; 81003; 74000; 74177; 99285; 96375; 96376; 96361 ×2; 96365; G0378; J1200 ×2; J2930 ×2; J2405; J1170; Q9967; J0131

== ENCOUNTER 2016-05-15 11:56 | Observation (INO) | payer MEDICARE, BC ==
--- NOTE | 2016-05-15 12:56 | ED ---
General Adult HPI - General Chief complaint: Fever Stated complaint: WEAKNESS, FEVER, FALL Time Seen by Provider: 05/15/16 12:47 Source: patient, RN notes reviewed Mode of arrival: wheelchair Limitations: no limitations - History of Present Illness Initial comments: Patient is a pleasant 76-year-old male presenting to the emergency department with general weakness. Symptoms have progressed over the past couple of weeks. Patient did have a fall today, no injury. Patient was also noticed to have fever today at 101.7. Patient was given 2 Tylenol. Weakness is diffuse, no isolated area of weakness. Patient has had some abdominal discomfort however this is somewhat chronic. Patient did have a bowel movement today. - Related Data Home Medications Medication Instructions Recorded Confirmed INSULIN LISPRO (humaLOG) [humaLOG See Protocol SQ ACHS PRN 11/07/13 05/15/16 (formulary)] Meclizine [Antivert] 25 mg PO DAILY PRN 11/07/13 05/15/16 amLODIPine [Norvasc] 10 mg PO W/SUPPER 11/07/13 05/15/16 ALPRAZolam [Xanax] 0.5 mg PO TID PRN 03/23/15 05/15/16 Amiodarone [Cordarone] 200 mg PO W/SUPPER 03/23/15 05/15/16 Aspirin [Adult Low Dose Aspirin EC] 81 mg PO W/SUPPER 03/23/15 05/15/16 Gabapentin [Neurontin] 400 mg PO Q8HR PRN 04/07/15 05/15/16 Cholecalciferol [Vitamin D3] 1,000 unit PO W/SUPPER 07/14/15 05/15/16 Insulin Glargine [Lantus] 52 unit SQ HS 07/14/15 05/15/16 HYDROcodone/APAP 7.5-325MG [Julian 1 tab PO Q6H PRN 09/22/15 05/15/16 7.5-325] fentaNYL 75MCG/HR PATCH [Duragesic 1 patch TRANSDERM Q48H 04/30/16 05/15/16 75MCG/HR] Docusate [Colace] 100 mg PO W/SUPPER 05/15/16 05/15/16 diphenhydrAMINE HCL [Benadryl] 50 mg PO TID PRN 05/15/16 05/15/16 Allergies Allergy/AdvReac Type Severity Reaction Status Date / Time Iodinated Contrast Media - Allergy Rash/Hives Verified 05/15/16 14:23 Oral and Penicillins Allergy Swelling Verified 05/15/16 14:23 Surgical Scrub Allergy Unknown Itching, Uncoded 05/15/16 14:23 Red skin Review of Systems ROS Statement: Those systems with pertinent positive or pertinent negative responses have been documented in the HPI. ROS Other: All systems not noted in ROS Statement are negative. Constitutional: Denies: fever Eyes: Denies: eye pain ENT: Denies: ear pain Respiratory: Denies: cough, dyspnea Cardiovascular: Denies: chest pain Endocrine: Denies: fatigue Gastrointestinal: Reports: abdominal pain, constipation. Denies: vomiting Genitourinary: Denies: dysuria Musculoskeletal: Denies: arthralgia Skin: Denies: lesions Neurological: Reports: weakness Past Medical History Past Medical History: Cancer, Diabetes Mellitus, Hypertension, Osteoarthritis ( OA) Additional Past Medical History / Comment(s): prostate cancer-2010- tx with radiation History of Any Multi-Drug Resistant Organisms: None Reported Past Surgical History: Appendectomy, Back Surgery, Cholecystectomy, Coronary Bypass/CABG, Heart Catheterization, Hernia Repair, Joint Replacement, Orthopedic Surgery Additional Past Surgical History / Comment(s): right ankle and fibula surgery, right knee replacement, 2008 triple bypass, abdominal adhesions, fatty tumor removed from neck, carpal tunnel-jono,. abdominal surgery with mesh in 2001, back nerve surgery, rotator cuff-left shoulder, hernia repair with mesh and 3 fatty tumors removed 08/15/15 Past Anesthesia/Blood Transfusion Reactions: No Reported Reaction Past Psychological History: Anxiety Smoking Status: Never smoker Past Alcohol Use History: None Reported Past Drug Use History: None Reported - Past Family History Father History Unknown: Yes Family Medical History: Cancer Additional Family Medical History / Comment(s): PROSTATE CANCER Son(s) Family Medical History: Cancer Additional Family Medical History / Comment(s): TESTICULAR CANCER Mother Family Medical History: Coronary Artery Disease (CAD), Hypertension General Exam Limitations: no limitations General appearance: alert, in no apparent distress Head exam: Present: atraumatic Eye exam: Present: normal appearance, PERRL ENT exam: Present: normal oropharynx Neck exam: Present: normal inspection Respiratory exam: Present: normal lung sounds bilaterally Cardiovascular Exam: Present: regular rate, normal rhythm GI/Abdominal exam: Present: soft, tenderness (Mild tenderness left upper abdomen ). Absent: distended Extremities exam: Present: normal inspection Neurological exam: Present: alert. Absent: motor sensory deficit Expanded Motor strength exam: RUE: 5, LUE: 5, RLE: 5, LLE: 5 Psychiatric exam: Present: normal affect, normal mood Skin exam: Present: normal color Course Vital Signs 05/15/16 12:11 Temperature 98.7 F Pulse Rate 97 Respiratory 18 Rate Blood Pressure 113/67 O2 Sat by Pulse 92 L Oximetry EKG Findings - EKG Comments: EKG Findings:: Normal sinus rhythm at 89. DE 196. QRS 168. QT 450. QTC 547. Left axis. Right bundle branch block. Left anterior fascicular block. LVH with repolarization change. Medical Decision Making - Medical Decision Making Patient reevaluated resting comfortably in bed. Patient and family updated on results and plan. Source of fever is not identifiable, therefore patient does not meet sepsis criteria Case was discussed in detail with Dr. palma, who will admit for Dr. Anthony. - Lab Data Result diagrams: 05/15/16 13:05 05/15/16 13:05 Lab Results 05/15/16 05/15/16 05/15/16 Range/Units 13:05 13:05 13:05 WBC 16.0 H (3.8-10.6) k/uL RBC 4.66 (4.30-5.90) m/uL Hgb 13.9 (13.0-17.5) gm/dL Hct 42.1 (39.0-53.0) % MCV 90.3 (80.0-100.0) fL MCH 29.8 (25.0-35.0) pg MCHC 33.0 (31.0-37.0) g/dL RDW 13.5 (11.5-15.5) % Plt Count 235 (150-450) k/uL Neutrophils % 82 % Lymphocytes % 9 % Monocytes % 5 % Eosinophils % 2 % Basophils % 0 % Neutrophils # 13.2 H (1.3-7.7) k/uL Lymphocytes # 1.4 (1.0-4.8) k/uL Monocytes # 0.7 (0-1.0) k/uL Eosinophils # 0.3 (0-0.7) k/uL Basophils # 0.1 (0-0.2) k/uL PT (9.0-12.0) sec INR (<1.1) APTT (22.0-30.0) sec Sodium 139 (137-145) mmol/L Potassium 4.6 (3.5-5.1) mmol/L Chloride 100 (98-107) mmol/L Carbon Dioxide 29 (22-30) mmol/L Anion Gap 10 mmol/L BUN 16 (9-20) mg/dL Creatinine 0.90 (0.66-1.25) mg/dL Est GFR (MDRD) Af Amer >60 (>60 ml/min/1.73 sqM) Est GFR (MDRD) Non-Af >60 (>60 ml/min/1.73 sqM) Glucose 243 H (74-99) mg/dL Plasma Lactic Acid Ned (0.7-2.0) mmol/L Calcium 9.4 (8.4-10.2) mg/dL Total Bilirubin 0.5 (0.2-1.3) mg/dL AST 23 (17-59) U/L ALT 30 (21-72) U/L Alkaline Phosphatase 59 (38-126) U/L Total Creatine Kinase 113 (55-170) U/L CK-MB (CK-2) 1.3 (0.0-2.4) ng/mL CK-MB (CK-2) Rel Index 1.2 Troponin I <0.012 (0.000-0.034) ng/mL Total Protein 6.6 (6.3-8.2) g/dL Albumin 3.8 (3.5-5.0) g/dL Cortisol 14 ug/dL Urine Color Urine Appearance (Clear) Urine pH (5.0-8.0) Ur Specific [place] (1.001-1.035) Urine Protein (Negative) Urine Glucose (UA) (Negative) Urine Ketones (Negative) Urine Blood (Negative) Urine Nitrite (Negative) Urine Bilirubin (Negative) Urine Urobilinogen (<2.0) mg/dL Ur Leukocyte Esterase (Negative) Urine RBC (0-5) /hpf Urine WBC (0-5) /hpf Ur Squamous Epith Cells (0-4) /hpf Amorphous Sediment (None) /hpf Urine Bacteria (None) /hpf Hyaline Casts (0-2) /lpf Urine Mucus (None) /hpf Influenza Type A RNA (Not Detectd) Influenza Type B (PCR) (Not Detectd) 05/15/16 05/15/16 05/15/16 Range/Units 13:05 13:05 13:11 WBC (3.8-10.6) k/uL RBC (4.30-5.90) m/uL Hgb (13.0-17.5) gm/dL Hct (39.0-53.0) % MCV (80.0-100.0) fL MCH (25.0-35.0) pg MCHC (31.0-37.0) g/dL RDW (11.5-15.5) % Plt Count (150-450) k/uL Neutrophils % % Lymphocytes % % Monocytes % % Eosinophils % % Basophils % % Neutrophils # (1.3-7.7) k/uL Lymphocytes # (1.0-4.8) k/uL Monocytes # (0-1.0) k/uL Eosinophils # (0-0.7) k/uL Basophils # (0-0.2) k/uL PT 9.9 (9.0-12.0) sec INR 1.0 (<1.1) APTT 23.3 (22.0-30.0) sec Sodium (137-145) mmol/L Potassium (3.5-5.1) mmol/L Chloride (98-107) mmol/L Carbon Dioxide (22-30) mmol/L Anion Gap mmol/L BUN (9-20) mg/dL Creatinine (0.66-1.25) mg/dL Est GFR (MDRD) Af Amer (>60 ml/min/1.73 sqM) Est GFR (MDRD) Non-Af (>60 ml/min/1.73 sqM) Glucose (74-99) mg/dL Plasma Lactic Acid Ned 2.4 H* (0.7-2.0) mmol/L Calcium (8.4-10.2) mg/dL Total Bilirubin (0.2-1.3) mg/dL AST (17-59) U/L ALT (21-72) U/L Alkaline Phosphatase (38-126) U/L Total Creatine Kinase (55-170) U/L CK-MB (CK-2) (0.0-2.4) ng/mL CK-MB (CK-2) Rel Index Troponin I (0.000-0.034) ng/mL Total Protein (6.3-8.2) g/dL Albumin (3.5-5.0) g/dL Cortisol ug/dL Urine Color Urine Appearance (Clear) Urine pH (5.0-8.0) Ur Specific [place] (1.001-1.035) Urine Protein (Negative) Urine Glucose (UA) (Negative) Urine Ketones (Negative) Urine Blood (Negative) Urine Nitrite (Negative) Urine Bilirubin (Negative) Urine Urobilinogen (<2.0) mg/dL Ur Leukocyte Esterase (Negative) Urine RBC (0-5) /hpf Urine WBC (0-5) /hpf Ur Squamous Epith Cells (0-4) /hpf Amorphous Sediment (None) /hpf Urine Bacteria (None) /hpf Hyaline Casts (0-2) /lpf Urine Mucus (None) /hpf Influenza Type A RNA Not Detected (Not Detectd) Influenza Type B (PCR) Not Detected (Not Detectd) 05/15/16 Range/Units 14:23 WBC (3.8-10.6) k/uL RBC (4.30-5.90) m/uL Hgb (13.0-17.5) gm/dL Hct (39.0-53.0) % MCV (80.0-100.0) fL MCH (25.0-35.0) pg MCHC (31.0-37.0) g/dL RDW (11.5-15.5) % Plt Count (150-450) k/uL Neutrophils % % Lymphocytes % % Monocytes % % Eosinophils % % Basophils % % Neutrophils # (1.3-7.7) k/uL Lymphocytes # (1.0-4.8) k/uL Monocytes # (0-1.0) k/uL Eosinophils # (0-0.7) k/uL Basophils # (0-0.2) k/uL PT (9.0-12.0) sec INR (<1.1) APTT (22.0-30.0) sec Sodium (137-145) mmol/L Potassium (3.5-5.1) mmol/L Chloride (98-107) mmol/L Carbon Dioxide (22-30) mmol/L Anion Gap mmol/L BUN (9-20) mg/dL Creatinine (0.66-1.25) mg/dL Est GFR (MDRD) Af Amer (>60 ml/min/1.73 sqM) Est GFR (MDRD) Non-Af (>60 ml/min/1.73 sqM) Glucose (74-99) mg/dL Plasma Lactic Acid Ned (0.7-2.0) mmol/L Calcium (8.4-10.2) mg/dL Total Bilirubin (0.2-1.3) mg/dL AST (17-59) U/L ALT (21-72) U/L Alkaline Phosphatase (38-126) U/L Total Creatine Kinase (55-170) U/L CK-MB (CK-2) (0.0-2.4) ng/mL CK-MB (CK-2) Rel Index Troponin I (0.000-0.034) ng/mL Total Protein (6.3-8.2) g/dL Albumin (3.5-5.0) g/dL Cortisol ug/dL Urine Color Dark Yellow Urine Appearance Cloudy (Clear) Urine pH 5.5 (5.0-8.0) Ur Specific [place] 1.027 (1.001-1.035) Urine Protein 1+ H (Negative) Urine Glucose (UA) 1+ H (Negative) Urine Ketones Negative (Negative) Urine Blood Negative (Negative) Urine Nitrite Negative (Negative) Urine Bilirubin Negative (Negative) Urine Urobilinogen 2.0 (<2.0) mg/dL Ur Leukocyte Esterase Negative (Negative) Urine RBC 2 (0-5) /hpf Urine WBC 4 (0-5) /hpf Ur Squamous Epith Cells 1 (0-4) /hpf Amorphous Sediment Rare H (None) /hpf Urine Bacteria Rare H (None) /hpf Hyaline Casts 48 H (0-2) /lpf Urine Mucus Few H (None) /hpf Influenza Type A RNA (Not Detectd) Influenza Type B (PCR) (Not Detectd) - Radiology Data Radiology results: report reviewed (Computed tomography scan of the brain and abdominal/pelvis shows no acute process), image reviewed (X-ray shows no acute process) Disposition Clinical Impression: Fever Disposition: ADMITTED IP TO THIS HOSP
[2016-05-15 13:32] LABS: Basophils # (A) 0.1 k/uL (0-0.2); Basophils % (A) 0 %; CH 30.4; CHCM 33.9; Eosinophils # (A) 0.3 k/uL (0-0.7); Eosinophils % (A) 2 %; HCT 42.1 % (39.0-53.0); HDW 2.65; HGB 13.9 gm/dL (13.0-17.5); Luc # (Auto) 0.39; Luc % (Auto) 3; Lymphocytes # (A) 1.4 k/uL (1.0-4.8); Lymphocytes % (A) 9 %; MCH 29.8 pg (25.0-35.0); MCV 90.3 fL (80.0-100.0); Mean Platelet Volume 8.6; Monocytes # (A) 0.7 k/uL (0-1.0); Monocytes % (A) 5 %; Neutrophils # (A) 13.2 k/uL (1.3-7.7); Neutrophils % (A) 82 %; RBC 4.66 m/uL (4.30-5.90); RDW 13.5 % (11.5-15.5); WBC (Perox) 16.52
[2016-05-15 13:33] LABS: Partial Thromboplastin Time 23.3 sec (22.0-30.0)
[2016-05-15 13:35] LABS: ALT 30 U/L (21-72); AST 23 U/L (17-59); Alkaline Phosphatase 59 U/L (38-126); Anion Gap 10 mmol/L; Blood Urea Nitrogen 16 mg/dL (9-20); Calcium 9.4 mg/dL (8.4-10.2); Carbon Dioxide 29 mmol/L (22-30); Chloride 100 mmol/L (98-107); Glucose 243 mg/dL (74-99); Non-African American GFR(MDRD) >60 (>60 ml/min/1.73 sqM); Potassium 4.6 mmol/L (3.5-5.1); Sodium 139 mmol/L (137-145); Total Bilirubin 0.5 mg/dL (0.2-1.3); Total Protein 6.6 g/dL (6.3-8.2)
[2016-05-15 13:36] LABS: Prothrombin Time 9.9 sec (9.0-12.0)
[2016-05-15 13:56] LABS: Creatine Kinase 113 U/L (55-170)
--- NOTE | 2016-05-15 14:07 | CT ---
EXAMINATION TYPE: CT brain wo con DATE OF EXAM: 05/15/2016 1:52 PM COMPARISON: Prior CT brain 06 June 2015 HISTORY: Fall with weakness today. CT DLP: 978.2 mGycm Automated exposure control for dose reduction was used. FINDINGS: There is no acute intracranial hemorrhage, mass effect, or midline shift identified. The ventricles and sulci are within normal limits in size. Cerebral vascular calcifications are present. Periventri cular white matter shows patchy low attenuation as on prior exam. Cortical atrophy is likely age-rela nevaeh. The globes are intact and the visualized sinuses are clear. IMPRESSION: No acute intracranial hemorrhage, mass effect, or midline shift is seen.
[2016-05-15 14:09] LABS: Creatine Kinase MB 1.3 ng/mL (0.0-2.4); Troponin I <0.012 ng/mL (0.000-0.034)
--- NOTE | 2016-05-15 14:28 | CT ---
EXAMINATION TYPE: CT abdomen pelvis wo con DATE OF EXAM: 05/15/2016 1:52 PM COMPARISON: Prior CT third of April 2016 HISTORY: Fall with weakness today and fever. CT DLP: 1149.4 mGycm Automated exposure control for dose reduction was used. TECHNIQUE: Helical acquisition of images from the lung bases through the pelvis. FINDINGS: LUNG BASES: Some dependent atelectatic changes are present bilaterally, no pleural or pericardial eff usion. There are coronary artery calcifications, patient is post median sternotomy AORTA: No significant abnormality is appreciated. LIVER/GB: Liver is stable, gallbladder is absent. Some dilated ducts are stable. PANCREAS: Pancreas is again atrophic. SPLEEN: No significant abnormality is seen. ADRENALS: No significant abnormality is seen. KIDNEYS: No significant abnormality is seen. No interval change. REPRODUCTIVE ORGANS: Prostatic calcifications again noted. URINARY BLADDER: Urinary bladder wall is thickened likely due to chronic outlet obstruction, the rolando dder is not distended BOWEL: No significant abnormality is seen. FREE AIR: No Free Air is visible. ASCITES: None visible. PELVIC ADENOPATHY: None visualized. RETROPERITONEAL ADENOPATHY: No Retroperitoneal Adenopathy visible. OSSEOUS STRUCTURES: No significant interval change, the exam is stable IMPRESSION: STABLE EXAM, NO TRAUMATIC ACUTE INJURY IS EVIDENT, noncontrast exam.
[2016-05-15 14:57] LABS: Amorphous Sediment,Urine Rare /hpf; Appearance,Urine Cloudy (Clear); Bacteria,Urine Rare /hpf; Bilirubin,Urine Negative (Negative); Glucose,Urine (UA) 1+ (Negative); Ketones,Urine Negative (Negative); Leukocyte Esterase,Urine Negative (Negative); Mucus,Urine Few /hpf; Nitrite,Urine Negative (Negative); PH, Urine 5.5 (5.0-8.0); Particle Count 15135; Protein,Urine 1+ (Negative); RBC,Urine 2 /hpf (0-5); Specific Gravity,Urine 1.027 (1.001-1.035); Squamous Epithelial Cell,Urine 1 /hpf (0-4); UA Billing (MACRO vs. MICRO) MICRO; WBC,Urine 4 /hpf (0-5)
--- NOTE | 2016-05-15 14:58 | XR ---
EXAMINATION TYPE: XR chest 2V DATE OF EXAM: 05/15/2016 2:09 PM COMPARISON: Prior chest x-ray May 2015 HISTORY: Fever TECHNIQUE: Frontal and lateral views of the chest are obtained. FINDINGS: Patient is post median sternotomy. No interval change. The heart remains enlarged. There a re overlying cardiac leads. IMPRESSION: No acute cardiopulmonary process. Stable exam. Cardiomegaly.
[2016-05-15] MEDS ORDERED: NALOXONE 0.4 MG/ML 1 ML VIAL IV PRN (15:22)
[2016-05-15 16:53] LABS: Glucose,Whole Blood 253 mg/dL (75-99)
[2016-05-15] MEDS ORDERED: MECLIZINE 25 MG TAB PO PRN (17:11)
[2016-05-15] MEDS ORDERED: GABAPENTIN 400 MG CAP PO PRN (17:11)
[2016-05-15] MEDS ORDERED: diphenhydrAMINE 50 MG CAP PO PRN (17:11)
[2016-05-15] MEDS ORDERED: ALPRAZolam 0.5 MG TAB PO PRN (17:11)
[2016-05-15] MEDS ORDERED: HYDROcodone/APAP 7.5-325MG 1 EACH TAB PO PRN (17:11)
[2016-05-15] MEDS ORDERED: amLODIPine 10 MG TAB PO SCH (17:30)
[2016-05-15] MEDS ORDERED: DOCUSATE 100 MG CAP PO SCH (17:30)
[2016-05-15] MEDS ORDERED: ASPIRIN 81 MG CHEW PO SCH (17:30)
[2016-05-15] MEDS ORDERED: AMIODARONE 200 MG TAB PO SCH (17:30)
[2016-05-15] MEDS ORDERED: CHOLECALCIFEROL 1,000 UNIT TAB PO SCH (17:30)
[2016-05-15] MEDS: INSULIN LISPRO (humaLOG) 300 UNIT/3 ML VIAL SQ SCH ×2 (18:09→21:23)
[2016-05-15] MEDS: SODIUM CHLORIDE 0.9% 1,000 ML IV SCH (18:13)
[2016-05-15 20:05] LABS: Creatine Kinase 226 U/L (55-170)
[2016-05-15 20:18] LABS: Creatine Kinase MB 2.2 ng/mL (0.0-2.4); Troponin I <0.012 ng/mL (0.000-0.034)
[2016-05-15] MEDS: NYSTATIN 100,000 UNIT/GM OINT 30 GM TUBE TOPICAL SCH (20:37)
[2016-05-15] MEDS ORDERED: INSULIN GLARGINE 100 UNIT/ML 10 ML VIAL SQ SCH (21:00)
[2016-05-15] MEDS: GABAPENTIN 400 MG CAP PO SCH (21:23)
[2016-05-15 21:42] LABS: Glucose,Whole Blood 215 mg/dL (75-99)
[2016-05-15 23:51] VITALS: PULSE 66
[2016-05-16 02:09] LABS: Creatine Kinase 237 U/L (55-170)
[2016-05-16 02:22] LABS: Troponin I <0.012 ng/mL (0.000-0.034)
[2016-05-16 07:10] LABS: Glucose,Whole Blood 208 mg/dL (75-99)
[2016-05-16 08:22] VITALS: BP 134/73; RESP 12; TEMP 97.1
[2016-05-16] MEDS: INSULIN LISPRO (humaLOG) 300 UNIT/3 ML VIAL SQ SCH ×2 (08:37→12:31)
--- NOTE | 2016-05-16 08:50 | HP ---
DATE OF SERVICE: 05/15/2016 CHIEF COMPLAINT: Fever. HISTORY OF PRESENT ILLNESS: Mr. Vega is a 76-year-old male with the past medical history of type 2 diabetes mellitus, hypertension, osteoarthritis, prostate cancer that was treated with radiation into 2010 coming into the hospital with a chief complaint of fever. The patient is a poor historian so most of the history is obtained from his , who is at the bedside. Patient's states that he was warm to touch this morning and when she recorded the temperature it was 101.7 and she did give him 2 Tylenols. After that she went to start her care and eventually when she came inside the house she found him on the floor. He had a slip and fell onto the floor. Later on she had her neighbors help her to get him up and then she brought him to the hospital for further evaluation and treatment. Patient also had recent ER visit on the fourth of this month because he had an allergic reaction to iodine dye. The patient per se denies having any fever, chills or rigors. He denies having any difficulty in breathing or cough. He had some sore throat last night but denies having any now. He has chronic abdominal pain. No new symptoms. No nausea, vomiting, or diarrhea. Patient does have history of COPD, but has been doing stable with that. He denies having any chest pain, palpitations. The patient denies having any headache, loss of consciousness or weakness in his extremities. No complaints of slurring of speech. He denies having any burning micturition or change in frequency of urine. REVIEW OF SYSTEMS: All 14 review of systems are done and negative except for the ones mentioned in the HPI. Past medical history is significant for hypertension, diabetes mellitus, osteoarthritis, prostate cancer, status post radiation therapy. PAST SURGICAL HISTORY: Appendectomy, back surgery, cholecystectomy, coronary artery bypass grafting, hernia repair, orthopedic surgery. PATIENT ALLERGIES ARE TO IODINATED CONTRAST MATERIAL, PENICILLINS AND SURGICAL SCRUB. Patient's home medications: 1. Fentanyl patch 75 mcg every 45 hours. 2. Benadryl 50 mg p.o. 3 times a day. 3. Norvasc 10 mg p.o. daily. 4. Antivert 25 mg p.o. daily. 5. Lantus 52 units q.h.s. 6. Sliding scale of insulin. 7. Reagan 7.5/325, 1 tablet q.6 hours p.r.n. for pain. 8. Neurontin 400 mg p.o. q.8 hours. 9. Colace 100 mg p.o. daily. 10. Vitamin D 3000 units p.o. daily. 11. Aspirin 81 mg with supper. 12. Amiodarone 200 mg with supper. 13. Xanax 0.5 mg p.o. 3 times a day. SOCIAL HISTORY: Never a smoker. No history of alcohol abuse. Family history of prostate cancer. On examination, patient's vitals are T-max for the past 24 hours is 98.7, heart rate of 84, respiratory rate 18, blood pressure 130/73, saturating at 99% on 2 liters of nasal cannula. GENERAL EXAMINATION: Patient appears to be in no acute distress. He is lying comfortably in the bed. HEAD: Atraumatic, normocephalic. EYES: Pupils round and reactive to light. NECK: No JVD. No thyromegaly. CARDIOVASCULAR: S1, S2 heard. No additional sounds. RESPIRATORY: Bilateral breath sounds are positive. No wheeze or crackles. Diminished in all lung johnson. GI: Abdomen is soft, nontender, positive bowel sounds. The patient has some slight maceration of the skin in his right inguinal region. Possible early candidiasis. NEUROLOGICAL: CASE PLANNER alert, awake, oriented x2 to 3. No focal neurological deficits. PSYCHIATRIC: Appropriate mood and affect. MUSCULOSKELETAL: No joint swelling or deformities. Patient's labs: White count of 16, hemoglobin is 13.9, platelets of 235. Sodium is 139, potassium 4.6, chloride 100, bicarb 29, BUN 16, creatinine 0.90. Lactic acid of 2.4, troponin less than 0.02. UA is showing dark, negative for esterase or nitrites. Negative for influenza A and B. Patient did have a CAT scan of his brain, no acute intracranial bleed or infarct. Chest x-ray, no infiltrate and no cardiopulmonary process. Abdomen and pelvis CT showing stable exam, no traumatic injury. ASSESSMENT AND PLAN: 1. Fever, etiology is unclear. The patient does not have any signs or symptoms suggestive of any ongoing infection. He had a chest x-ray, abdominal CT and pelvis, CT of the brain that were all within normal limits. He is not tachycardic. His UA looks normal. Except for a white count of 16 and a lactic acid of 2.34. He does not have any other signs or symptoms that would probe us to start him on an antibiotic. So we will monitor his white count and follow up on the blood cultures and urine cultures that have been obtained. 2. Fall. Most likely mechanical fall because he has been having balance issues for the past few months. 3. Type 2 diabetes mellitus, insulin-dependent. 4. Hypertension. 5. Hyperlipidemia. 6. History of prostate cancer, status post radiation therapy in 2010. 7. History of hernia repair in the past. 8. History of multiple orthopedic surgeries. 9. History of chronic abdominal pain secondary to adhesions. 10. History of abdominal surgery with mesh placement in 2001. 11. History of coronary artery disease, status post coronary artery bypass graft in the past. PLAN: The plan is to continue the patient on the current medication regimen. I do not see the need for initiation of any antibiotics at this point of time so we will monitor the patient for white count and fevers and the treatment plan was discussed in detail with the patient and who is at the bedside, who is in agreement with that. Further recommendations depending on the progress of the patient. KARLY
[2016-05-16] MEDS: GABAPENTIN 400 MG CAP PO SCH (11:22)
[2016-05-16] MEDS: NYSTATIN 100,000 UNIT/GM OINT 30 GM TUBE TOPICAL SCH (11:23)
--- NOTE | 2016-05-16 11:27 | XR ---
EXAMINATION TYPE: XR chest 2V DATE OF EXAM: 05/16/2016 11:05 AM COMPARISON: Prior chest x-ray 15 May 2016 HISTORY: Fever TECHNIQUE: Frontal and lateral views of the chest are obtained. FINDINGS: There is no focal air space opacity, pleural effusion, or pneumothorax seen. The cardiac silhouette size is stable, heart size may be accentuated by rotation. Patient is post median sternot frank. The osseous structures are intact. IMPRESSION: No acute cardiopulmonary process.
[2016-05-16 11:32] LABS: ALT 30 U/L (21-72); AST 26 U/L (17-59); Alkaline Phosphatase 51 U/L (38-126); Anion Gap 6 mmol/L; Blood Urea Nitrogen 15 mg/dL (9-20); Calcium 9.2 mg/dL (8.4-10.2); Carbon Dioxide 32 mmol/L (22-30); Chloride 102 mmol/L (98-107); Glucose 217 mg/dL (74-99); Non-African American GFR(MDRD) >60 (>60 ml/min/1.73 sqM); Potassium 4.6 mmol/L (3.5-5.1); Sodium 140 mmol/L (137-145); Total Bilirubin 0.5 mg/dL (0.2-1.3)
[2016-05-16 11:52] LABS: Glucose,Whole Blood 179 mg/dL (75-99)
[2016-05-16 12:36] LABS: Aty Lym Flag Slight; CH 30.1; CHCM 32.8; HCT 39.3 % (39.0-53.0); HDW 2.58; HGB 12.6 gm/dL (13.0-17.5); MCH 29.4 pg (25.0-35.0); Mean Platelet Volume 8.1; RBC 4.28 m/uL (4.30-5.90); RDW 13.6 % (11.5-15.5); WBC 7.7 k/uL (3.8-10.6); WBC (Perox) 8.29
[2016-05-16 12:50] LABS: Add Differential Manual Differential
[2016-05-16 12:52] LABS: Nucleated Red Blood Cells 0 /100 WBC (0-0); Polychromasia Present; Total Cells Counted 100
[2016-05-16] MEDS: SODIUM CHLORIDE 0.9% 1,000 ML IV SCH (14:35)
--- NOTE | 2016-05-17 19:40 | DS ---
DATE OF SERVICE: 05/16/2016 DATE OF ADMISSION: 05/15/2016 DATE OF DISCHARGE: 05/16/2016 HOSPITAL COURSE: Mr. Vega is a 76-year-old male with a past medical history of type 2 diabetes mellitus, hypertension, osteoarthritis, prostate cancer that was treated with radiation in 2010, coming into the hospital with chief complaint of fever. The patient is a poor historian so most of the history was obtained from his . Patient's states that he has dementia and has been forgetful and that she takes care of him. Patient felt that he was warm to touch and so recorded temperature which was 101.7. She did give him two Tylenol ( ) which his fever subsided and then eventually patient had a fall at home which is probably mechanical and so she brought into the hospital for further evaluation. Patient did have a white count at the time of admission but no other clinical signs or symptoms of infection. The patient did not have a fever during the hospital stay. She denies having any complaints of difficulty in breathing, abdominal pain, nausea, vomiting urinary tract infection symptoms. So far septic work-up has been negative. Patient did not spike any fevers and the thinks he is back to his baseline and wants to take him home and so he is being discharged home in stable condition today. Patient's admitting diagnosis: 1. Fever that was recorded at home but during his hospital stay no recorded temperatures here. Work-up for fevers with chest x-ray, abdominal CAT scan and pelvis, CT of the patient has been within normal limits. His white count is back to normal. 2. Fall. Most likely mechanical fall because he has been having balance issues. 3. Type 2 diabetes mellitus, insulin-dependent. 4. Hypertension. 5. Hyperlipidemia. 6. History of prostate cancer, status post radiation therapy in 2010. 7. History of dementia. 8. History of hernia repair. 9. History of multiple orthopedic surgeries. 10. Chronic abdominal pain secondary to adhesions. 11. History of coronary artery disease, status post coronary artery bypass graft in the past. Patient's discharge medications: 1. Insulin sliding scale. 2. Meclizine 25 mg p.o. daily p.r.n. for vertigo. 3. Norvasc 10 mg p.o. daily. 4. Xanax 0.5 mg 3 times a day p.r.n. for anxiety. 5. Amiodarone 200 mg p.o. q.h.s. 6. Aspirin 81 mg p.o. daily. 7. Gabapentin 400 mg p.o. q.8 hours. 8. Vitamin D3 1000 units p.o. daily. 9. Lantus 52 units subcu q.h.s. 10. [place] 7.5/325, 1 tablet q.6 hours p.r.n. for pain. 11. Fentanyl 75 mcg per hour patch every 48 hours. 12. Colace 100 mg p.o. at night. 13. Diphenhydramine 50 mg 3 times a day p.r.n. for cough. 14. Nystatin 100,000 units per gram ointment application b.i.d. for intertriginous areas. FOLLOW-UP: The patient is advised to follow up with his primary care physician, Dr. Anthony in one week's time and he is being discharged home with his in stable condition. Activity as tolerated. Diet is cardiac diet. More than 35 minutes spent towards discharge of the patient. KARLY
== END 2016-05-16 15:51 | disposition home or self-care (01) ==
LOC: EC 11:56 → 4MS4W 15:22
PROVIDERS: ADMIT Family Medicine; ATTEND Family Medicine
DX: R50.9 Fever, unspecified (principal); Z91.81 History of falling; E11.9 Type 2 diabetes mellitus without complications; E78.5 Hyperlipidemia, unspecified; F41.9 Anxiety disorder, unspecified; G89.29 Other chronic pain; K66.0 Peritoneal adhesions (postprocedural) (postinfection); I10 Essential (primary) hypertension; I25.10 Atherosclerotic heart disease of native coronary artery without angina pectoris; W01.0XXA Fall on same level from slipping, tripping and stumbling without subsequent striking against object, initial encounter; Z79.4 Long term (current) use of insulin; Z79.82 Long term (current) use of aspirin; Z79.899 Other long term (current) drug therapy; Z88.0 Allergy status to penicillin; Z95.1 Presence of aortocoronary bypass graft; Z91.041 Radiographic dye allergy status; Z91.048 Other nonmedicinal substance allergy status; R53.1 Weakness; M19.90 Unspecified osteoarthritis, unspecified site
CPT/HCPCS: 36415; 80053 ×2; 82533; 83036; 82550 ×2; 82553 ×2; 83605; 84484 ×2; 85025 ×2; 85610; 85730; 81001; 87040; 87086; 87502; 71020 ×2; 70450; 74176; 99285; G0378 ×2; 93005

== ENCOUNTER 2016-07-18 21:37 | Emergency (ER) | payer MEDICARE, BC ==
[2016-07-18] MEDS ORDERED: ONDANSETRON 4 MG/2 ML VIAL IVP STA (22:11)
[2016-07-18] MEDS ORDERED: HYDROmorphone 1 MG/ML 1 ML SYRINGE IVP STA ×2 (22:11→23:53)
[2016-07-18] MEDS ORDERED: SODIUM CHLORIDE 0.9% 500 ML IV STA (22:11)
[2016-07-18 22:38] LABS: Basophils # (A) 0.1 k/uL (0-0.2); Basophils % (A) 1 %; CH 30.5; CHCM 34.3; Eosinophils # (A) 0.2 k/uL (0-0.7); Eosinophils % (A) 3 %; HCT 44.6 % (39.0-53.0); HDW 2.58; HGB 14.7 gm/dL (13.0-17.5); Luc % (Auto) 3; Lymphocytes # (A) 2.5 k/uL (1.0-4.8); Lymphocytes % (A) 32 %; MCH 29.4 pg (25.0-35.0); MCV 89.2 fL (80.0-100.0); Monocytes # (A) 0.5 k/uL (0-1.0); Monocytes % (A) 7 %; Neutrophils # (A) 4.3 k/uL (1.3-7.7); Neutrophils % (A) 55 %; RDW 13.8 % (11.5-15.5); WBC 7.8 k/uL (3.8-10.6); WBC (Perox) 7.67
--- NOTE | 2016-07-18 22:38 | ED ---
Abdominal Pain HPI - General Chief Complaint: Abdominal Pain Stated Complaint: Abd Pain Time Seen by Provider: 07/18/16 21:58 Source: patient, RN notes reviewed Mode of arrival: wheelchair Limitations: no limitations - History of Present Illness Initial Comments: 76-year-old male presents emergency Department chief complaint of right lower quadrant abdominal pain. Patient has a history of ongoing issues with this pain but states his been worse last few days. Patient states that he said prior right inguinal hernia surgery by Dr. Arroyo and adhesion surgery in the past. Patient denies any nausea vomiting diarrhea constipation. Patient states the pain is worse with movement states the pain radiates from his right side to his middle of his suprapubic region. Patient states that he seen at [facility] last night with no acute findings. He states he cannot tolerate the pain. Patient is currently taking [place] and motrin. Patient states that he was on fentanyl. - Related Data Home Medications Medication Instructions Recorded Confirmed INSULIN LISPRO (humaLOG) [humaLOG See Protocol SQ ACHS PRN 11/07/13 07/18/16 (formulary)] amLODIPine [Norvasc] 10 mg PO W/SUPPER 11/07/13 07/18/16 ALPRAZolam [Xanax] 0.5 mg PO TID PRN 03/23/15 07/18/16 Amiodarone [Cordarone] 200 mg PO W/SUPPER 03/23/15 07/18/16 Aspirin [Adult Low Dose Aspirin EC] 81 mg PO W/SUPPER 03/23/15 07/18/16 Cholecalciferol [Vitamin D3] 1,000 unit PO W/SUPPER 07/14/15 07/18/16 Insulin Glargine [Lantus] 40 unit SQ HS 07/14/15 07/18/16 HYDROcodone/APAP 7.5-325MG [[place] 1 tab PO Q6H PRN 09/22/15 07/18/16 7.5-325] Buprenorphine [Butrans 20 MCG/HOUR] 1 patch TRANSDERM WE 07/18/16 07/18/16 Gabapentin [Neurontin] 300 mg PO Q8HR 07/18/16 07/18/16 Ibuprofen [Motrin] 600 mg PO Q5H PRN 07/18/16 07/18/16 Tamsulosin [Flomax] 0.4 mg PO DAILY 07/18/16 07/18/16 Allergies Allergy/AdvReac Type Severity Reaction Status Date / Time Iodinated Contrast Media - Allergy Rash/Hives Verified 07/18/16 22:15 Oral and Penicillins Allergy Swelling Verified 07/18/16 22:15 Surgical Scrub Allergy Unknown Itching, Uncoded 07/18/16 21:53 Red skin Review of Systems ROS Statement: Those systems with pertinent positive or pertinent negative responses have been documented in the HPI. ROS Other: All systems not noted in ROS Statement are negative. Past Medical History Past Medical History: Cancer, Diabetes Mellitus, Hypertension, Osteoarthritis ( OA) Additional Past Medical History / Comment(s): prostate cancer-2010- tx with radiation History of Any Multi-Drug Resistant Organisms: None Reported Past Surgical History: Appendectomy, Back Surgery, Cholecystectomy, Coronary Bypass/CABG, Heart Catheterization, Hernia Repair, Joint Replacement, Orthopedic Surgery Additional Past Surgical History / Comment(s): right ankle and fibula surgery, right knee replacement, 2008 triple bypass, abdominal adhesions, fatty tumor removed from neck, carpal tunnel-jono,. abdominal surgery with mesh in 2001, back nerve surgery, rotator cuff-left shoulder, hernia repair with mesh and 3 fatty tumors removed 08/15/15 Past Anesthesia/Blood Transfusion Reactions: No Reported Reaction Past Psychological History: Anxiety Smoking Status: Never smoker Past Alcohol Use History: None Reported Past Drug Use History: None Reported - Past Family History Father History Unknown: Yes Family Medical History: Cancer Additional Family Medical History / Comment(s): PROSTATE CANCER Son(s) Family Medical History: Cancer Additional Family Medical History / Comment(s): TESTICULAR CANCER Mother Family Medical History: Coronary Artery Disease (CAD), Hypertension General Exam Limitations: no limitations General appearance: alert, in no apparent distress Respiratory exam: Present: normal lung sounds bilaterally. Absent: respiratory distress, wheezes, rales, rhonchi, stridor Cardiovascular Exam: Present: regular rate, normal rhythm, normal heart sounds. Absent: systolic murmur, diastolic murmur, rubs, gallop, clicks GI/Abdominal exam: Present: soft, tenderness (Mild right lower quadrant, right inguinal region tenderness old scars noted), normal bowel sounds. Absent: distended, guarding, rebound, rigid Back exam: Absent: CVA tenderness (R), CVA tenderness (L) Skin exam: Present: warm, dry, intact, normal color. Absent: rash Course Vital Signs 07/18/16 21:49 Temperature 97.9 F Pulse Rate 68 Respiratory 16 Rate Blood Pressure 130/66 O2 Sat by Pulse 96 Oximetry Medical Decision Making - Medical Decision Making 76-year-old male present emergency department for abdominal pain. Patient has chronic abdominal pain and right lower quadrant. Patient has no acute changes CT lab work within normal limits. Patient's is instructed to follow-up with Dr. Arroyo and his primary care physician Dr. Evangelista. Patient is on. Medications at home which was also discussed. - Lab Data Result diagrams: 07/18/16 22:30 07/18/16 22:30 Lab Results 07/18/16 07/18/16 07/18/16 Range/Units 22:30 22:30 23:30 WBC 7.8 (3.8-10.6) k/uL RBC 5.00 (4.30-5.90) m/uL Hgb 14.7 (13.0-17.5) gm/dL Hct 44.6 (39.0-53.0) % MCV 89.2 (80.0-100.0) fL MCH 29.4 (25.0-35.0) pg MCHC 33.0 (31.0-37.0) g/dL RDW 13.8 (11.5-15.5) % Plt Count 183 (150-450) k/uL Neutrophils % 55 % Lymphocytes % 32 % Monocytes % 7 % Eosinophils % 3 % Basophils % 1 % Neutrophils # 4.3 (1.3-7.7) k/uL Lymphocytes # 2.5 (1.0-4.8) k/uL Monocytes # 0.5 (0-1.0) k/uL Eosinophils # 0.2 (0-0.7) k/uL Basophils # 0.1 (0-0.2) k/uL Sodium 145 (137-145) mmol/L Potassium 4.2 (3.5-5.1) mmol/L Chloride 107 (98-107) mmol/L Carbon Dioxide 25 (22-30) mmol/L Anion Gap 13 mmol/L BUN 22 H (9-20) mg/dL Creatinine 0.90 (0.66-1.25) mg/dL Est GFR (MDRD) Af Amer >60 (>60 ml/min/1.73 sqM) Est GFR (MDRD) Non-Af >60 (>60 ml/min/1.73 sqM) Glucose 89 (74-99) mg/dL Calcium 9.8 (8.4-10.2) mg/dL Total Bilirubin 0.5 (0.2-1.3) mg/dL AST 26 (17-59) U/L ALT 26 (21-72) U/L Alkaline Phosphatase 56 (38-126) U/L Total Protein 7.0 (6.3-8.2) g/dL Albumin 4.3 (3.5-5.0) g/dL Amylase 41 (30-110) U/L Lipase 22 L (23-300) U/L Urine Color Yellow Urine Appearance Clear (Clear) Urine pH 5.5 (5.0-8.0) Ur Specific [place] 1.019 (1.001-1.035) Urine Protein Negative (Negative) Urine Glucose (UA) Negative (Negative) Urine Ketones Negative (Negative) Urine Blood Negative (Negative) Urine Nitrite Negative (Negative) Urine Bilirubin Negative (Negative) Urine Urobilinogen <2.0 (<2.0) mg/dL Ur Leukocyte Esterase Negative (Negative) Disposition Clinical Impression: Abdominal pain Disposition: HOME SELF-CARE Condition: Stable Instructions: Abdominal Pain (ED) Additional Instructions: Please return to the Emergency Department if symptoms worsen or any other concerns. Referrals: Han Evangelista MD [Primary Care Provider] - 1-2 days Time of Disposition: 23:54
[2016-07-18 22:47] LABS: Amylase 41 U/L (30-110); Anion Gap 13 mmol/L; Calcium 9.8 mg/dL (8.4-10.2); Carbon Dioxide 25 mmol/L (22-30); Chloride 107 mmol/L (98-107); Glucose 89 mg/dL (74-99); Non-African American GFR(MDRD) >60 (>60 ml/min/1.73 sqM); Sodium 145 mmol/L (137-145); Total Bilirubin 0.5 mg/dL (0.2-1.3)
[2016-07-18 22:49] LABS: ALT 26 U/L (21-72); AST 26 U/L (17-59); Alkaline Phosphatase 56 U/L (38-126); Blood Urea Nitrogen 22 mg/dL (9-20); Potassium 4.2 mmol/L (3.5-5.1)
--- NOTE | 2016-07-18 23:16 | CT ---
EXAM: CT Abdomen and Pelvis Without Intravenous Contrast CLINICAL HISTORY: Reason: Lower abdominal pain TECHNIQUE: Axial computed tomography images of the abdomen and pelvis without intravenous contrast. CTDI is 21.50 mGy and DLP is 1071.50 mGy-cm. This CT exam was performed using one or more of the following dose reduction techniques: automated exposure control, adjustment of the mA and/or kV according to patient size, and/or use of iterative reconstruction technique. COMPARISON: CT abdomen/pelvis on 05/15/2016 FINDINGS: Evaluation of solid organs somewhat limited without IV contrast. Liver: Punctate calcifications in the liver may represent old granulomatous disease. No focal lesion. Spleen: No focal lesion. Gallbladder: Status post cholecystectomy. Pancreas: Stable pancreatic atrophy. No mass. Adrenal glands: Stable mild thickening of the medial limb of the right adrenal gland. Kidneys: Stable left renal cyst. New punctate 2 mm stone in the right kidney. No hydronephrosis in either kidney. Bowel: Prominence of the rectal wall may be accentuated by underdistention. No bowel obstruction. Moderate stool burden. Appendix not visualized. No inflammatory changes to suggest appendicitis. Urinary bladder: No wall thickening or mass. Reproductive organs: Coarse calcifications in the prostate. Muscles: No mass. Subcutaneous tissues: Stable postsurgical changes of ventral abdominal hernia repair. No recurrent hernia identified. Stable densities in the subcutaneous fat of the right lower anterior abdominal wall which may also be postsurgical. Stable fat-containing left inguinal hernia. Peritoneal space: No free fluid. Lymph nodes: No lymphadenopathy. Vessels: Atherosclerotic changes of the vasculature. No aneurysm. Bones: Laminotomy changes from L3-L5. Degenerative changes of the spine. No acute fracture or bony lesion. Lung bases: Tiny nodules in the right lung base are not included within the [id number] on prior exam. Correlate with priors if available. Stable tiny subpleural nodule at the posterolateral left lung base. Small calcified granuloma in the lingula of the left upper lobe. Mild left greater than right bibasilar atelectasis. Median sternotomy changes again noted. Coronary artery calcifications. IMPRESSION: 1.New punctate nonobstructing right renal stone. 2. Prominence of the rectal wall may be accentuated by underdistention. No evidence of inflammatory changes. 3. Tiny nodules in the right lung base are not within the field-of- view on prior exam. Correlate with other priors if available for documentation of stability. 4. Stable postsurgical changes of ventral abdominal wall hernia repair. Similar densities in the subcutaneous fat in the right anterior abdominal wall may be related to injections versus postsurgical change.
[2016-07-18 23:36] LABS: Appearance,Urine Clear (Clear); Bilirubin,Urine Negative (Negative); Glucose,Urine (UA) Negative (Negative); Ketones,Urine Negative (Negative); Leukocyte Esterase,Urine Negative (Negative); Nitrite,Urine Negative (Negative); PH, Urine 5.5 (5.0-8.0); Protein,Urine Negative (Negative); Specific Gravity,Urine 1.019 (1.001-1.035); UA Billing (MACRO vs. MICRO) CHEM; Urobilinogen,Urine <2.0 mg/dL (<2.0)
[2016-07-19 00:32] VITALS: BP 138/63; PULSE 64; RESP 18; TEMP 97.2
== END 2016-07-19 00:20 | disposition home or self-care (01) ==
LOC: EC 21:37
DX: R10.31 Right lower quadrant pain (principal); E11.9 Type 2 diabetes mellitus without complications; I10 Essential (primary) hypertension; Z90.49 Acquired absence of other specified parts of digestive tract; Z95.1 Presence of aortocoronary bypass graft; Z79.4 Long term (current) use of insulin; Z79.82 Long term (current) use of aspirin; Z79.899 Other long term (current) drug therapy
CPT/HCPCS: 99284; 96374; 96375; 96376; 36415; 80053; 82150; 83690; 85025; 81003; 74176; J2405; J1170 ×2

== ENCOUNTER → 2016-07-22 | Outpatient (CLI) | payer MEDICARE, BC ==
--- NOTE | 2016-07-22 12:37 | CT ---
EXAMINATION TYPE: CT chest wo con DATE OF EXAM: 07/22/2016 12:29 PM COMPARISON: CT abdomen pelvis 07/18/2016 HISTORY: Lung nodules CT DLP: 552.[address] of the chest was performed with lung and mediastinal window settings submitted. The la ck of contrast limits evaluation of the vascular, mediastinal and parenchymal structures including th e upper abdomen. LUNGS: The lungs are clear and free of infiltrate. No atelectasis. Tiny 3 mm subpleural nodule left l ower lobe. 2 mm nodule right upper lobe anteriorly image 22 No additional nodules are seen. No pleura l effusion. No CT evidence of interstitial lung disease. MEDIASTINUM/CARMELITA: Thoracic aorta is of normal caliber with limited evaluation given lack of contrast . The heart is mildly enlarged. No evidence for mediastinal mass. No lymph nodes greater than 1cm . Median sternotomy changes. UPPER ABDOMEN: Hypoattenuating lesion left kidney is nonspecific. Right adrenal hyperplasia. OTHER: Right-sided gynecomastia. Degenerative changes thoracic spine. Small sliding-type hiatal herni a. IMPRESSION: 1. A few scattered tiny nonspecific pulmonary nodules. Consider follow-up.
--- NOTE | 2016-07-22 12:53 | US ---
EXAMINATION TYPE: US scrotum with doppler. Grayscale and color Doppler Duplex imaging performed of t brittany scrotum. DATE OF EXAM: 07/22/2016 12:30 PM COMPARISON: CT CLINICAL HISTORY: Pain in R testicle N50.811, R91.8 Lung Nodules. Right testicular swelling EXAM MEASUREMENTS: TESTICLES: Right Testicle: 3.0 x 2.4 x 2.4 cm Left Testicle: 3.8 x 2.5 x 1.6 cm EPIDIDYMIS HEAD: Right Epididymis: 1.2 x 0.8 x 1.2 cm Left Epididymis: 1.0 x 1.2 x 1.2 cm Doppler performed to assess for testicular vascularity; good bilateral color flow and waveforms are s een. There is no evidence of testicular torsion. Presence of hydroceles: right 7.5cm, left 2.8cm Presence of varicoceles: no IMPRESSION: 1. Large right hydrocele and small left hydrocele.
--- NOTE | 2016-07-22 12:55 | US ---
EXAMINATION TYPE: US groin extremity RT DATE OF EXAM: 07/22/2016 12:34 PM COMPARISON: CT CLINICAL HISTORY: Pain in R testicle N50.811, R91.8 Lung Nodules. Right groin pain Right groin area of pain scanned: no abnormalities seen at this time, left groin scanned for comparis on: no abnormalities seen at this time IMPRESSION: 1. No abnormality identified.
== END | disposition home or self-care (01) ==
LOC: RADCTMAIN 11:45
PROVIDERS: ATTEND Family Medicine
DX: R91.8 Other nonspecific abnormal finding of lung field (principal); N43.3 Hydrocele, unspecified; N50.811 Right testicular pain
CPT/HCPCS: 71250; 76870; 93975

== ENCOUNTER 2016-10-11 09:03 | Emergency (ER) | payer MEDICARE, BC ==
[2016-10-11 09:35] VITALS: TEMP 98.3
[2016-10-11] MEDS ORDERED: ONDANSETRON 4 MG/2 ML VIAL IVP STA (10:34)
[2016-10-11] MEDS ORDERED: HYDROmorphone 1 MG/ML 1 ML SYRINGE IVP STA ×2 (10:34→12:40)
[2016-10-11] MEDS ORDERED: SODIUM CHLORIDE 0.9% 500 ML IV STA (10:34)
--- NOTE | 2016-10-11 10:59 | ED ---
General Adult HPI - General Chief complaint: Abdominal Pain Stated complaint: lower abd pain Time Seen by Provider: 10/11/16 10:12 Source: patient, family, RN notes reviewed Mode of arrival: wheelchair Limitations: physical limitation - History of Present Illness Initial comments: 76-year-old male presents to the emergency department with a chief complaint of right lower quadrant abdominal pain. Patient has suffered from this right lower quadrant abdominal pain for very long time he has been on fentanyl for didn't know his INR: Gabapentin. Patient states this has been managed symptoms pain quite well and is scheduled to have mesh replacement with Dr. Christensen on Tuesday he started having increased pain in his pain medication was no longer helping. Patient states in the right side does sometimes radiate into the testicle. Patient states that he has no changes in urination there is no nausea vomiting or diarrhea. Patient states that he went to the hospital on Tuesday he was given a pain injection which did help with this pain for about 12 hours but now it is been unbearable again. Patient states it's much like his chronic pain but normally has pain medication at home THIS. Patient denies any other injury. Patient denies any other symptoms.Patient denies any recent fever, chills, shortness of breath, chest pain, back pain, nausea vomiting, numbness or tingling, dysuria or hematuria, constipation or diarrhea, headaches or visual changes, or any other current symptoms. - Related Data Home Medications Medication Instructions Recorded Confirmed INSULIN LISPRO (humaLOG) [humaLOG See Protocol SQ ACHS PRN 11/07/13 10/11/16 (formulary)] amLODIPine [Norvasc] 10 mg PO W/SUPPER 11/07/13 10/11/16 Amiodarone [Cordarone] 200 mg PO W/SUPPER 03/23/15 10/11/16 Aspirin [Adult Low Dose Aspirin EC] 81 mg PO DIRECTED 03/23/15 10/11/16 Cholecalciferol [Vitamin D3] 1,000 unit PO DIRECTED 07/14/15 10/11/16 Insulin Glargine [Lantus] 40 unit SQ HS 07/14/15 10/11/16 HYDROcodone/APAP 7.5-325MG [[place] 2 tab PO Q4H PRN 09/22/15 10/11/16 7.5-325] Gabapentin [Neurontin] 300 mg PO Q8HR PRN 07/18/16 10/11/16 Baclofen 10 mg PO HS 10/08/16 10/11/16 Pravastatin Sodium [Pravachol] 40 mg PO HS 10/08/16 10/11/16 Magnesium Hydroxide [Milk of 400 mg PO DAILY PRN 10/11/16 10/11/16 Magnesia] Allergies Allergy/AdvReac Type Severity Reaction Status Date / Time Iodinated Contrast- Oral and Allergy Rash/Hives Verified 10/11/16 10:02 IV Dye iodine Allergy Rash/Hives Verified 10/11/16 10:02 Penicillins Allergy Swelling Verified 10/11/16 10:02 duloxetine [From Cymbalta] AdvReac PRICKLY Verified 10/11/16 10:02 FEELING IN HEAD Surgical Scrub Allergy Unknown Itching, Uncoded 10/11/16 09:35 Red skin Review of Systems ROS Statement: Those systems with pertinent positive or pertinent negative responses have been documented in the HPI. ROS Other: All systems not noted in ROS Statement are negative. Past Medical History Past Medical History: Coronary Artery Disease (CAD), Cancer, Diabetes Mellitus, Hyperlipidemia, Hypertension, Osteoarthritis (OA), Prostate Disorder, Sleep Apnea/CPAP/BIPAP Additional Past Medical History / Comment(s): Prostate cancer-2010- tx with radiation. USES CPAP. HAS ABD ADHESIONS, HAS SEVERE ABD PAIN. History of Any Multi-Drug Resistant Organisms: None Reported Past Surgical History: Appendectomy, Back Surgery, Cholecystectomy, Coronary Bypass/CABG, Heart Catheterization, Hernia Repair, Joint Replacement, Orthopedic Surgery Additional Past Surgical History / Comment(s): ORIF LT Ankle. ORIF LT Fibula Surgery. RT Knee Replacement. 2008 Triple CABG. Abdominal adhesions. Fatty tumor from neck. CTR jono. Abdominal surgery with mesh in 2001. Back nerve surgery. Rotator cuff-left shoulder. ING hernia repair w/ mesh. 3 fatty tumors removed 08/15/15 Past Anesthesia/Blood Transfusion Reactions: No Reported Reaction Past Psychological History: Anxiety Smoking Status: Never smoker - Past Family History Father History Unknown: Yes Family Medical History: Cancer Additional Family Medical History / Comment(s): PROSTATE CANCER Son(s) Family Medical History: Cancer Additional Family Medical History / Comment(s): TESTICULAR CANCER Mother Family Medical History: Coronary Artery Disease (CAD), Hypertension Sister(s) Family Medical History: Cancer General Exam - General Exam Comments Initial Comments: General: The patient is awake and alert, in no distress, and does not appear acutely ill. Eye: Pupils are equal, round and reactive to light, extra-ocular movements are intact; there is normal conjunctiva bilaterally. No signs of icterus. Ears, nose, mouth and throat: There are moist mucous membranes and no oral lesions. Neck: The neck is supple, there is no tenderness. Cardiovascular: There is a regular rate and rhythm. No murmur, rub or gallop is appreciated. Respiratory: Lungs are clear to auscultation, respirations are non-labored, breath sounds are equal. No wheezes, stridor, rales, or rhonchi. Gastrointestinal: Soft, non-distended, right lower quadrant tenderness of the abdomen without masses or organomegaly noted. There is no rebound or guarding present. No CVA tenderness. Bowel sounds are unremarkable. Back: There is no tenderness to palpation in the midline. There is no obvious deformity. No rashes noted. Musculoskeletal: Normal ROM, no tenderness, There is no pedal edema. There is no calf tenderness or swelling. Sensation intact. Pulses equal bilaterally 2+. Neurological: CN II-XII intact, There are no obvious motor or sensory deficits. Coordination appears grossly intact. Speech is normal. Skin: Skin is warm and dry and no rashes or lesions are noted. Psychiatric: Cooperative, appropriate mood & affect, normal judgment. Limitations: physical limitation Course Vital Signs 10/11/16 09:31 Temperature 98.3 F Pulse Rate 70 Respiratory 16 Rate Blood Pressure 147/72 O2 Sat by Pulse 96 Oximetry Medical Decision Making - Medical Decision Making 76-year-old male presents emergency department chief complaint of right lower quadrant abdominal pain. This time patient's lab work and CAT scan is reviewed and negative. Patient's pain has improved with the pain medication. At this time we discussed close follow-up with her surgeon. We discussed return parameters all her questions. They stated the Jonathan management plan. They will be discharged home. - Lab Data Result diagrams: 10/11/16 10:56 10/11/16 10:56 Lab Results 10/11/16 10/11/16 10/11/16 Range/Units 10:56 10:56 10:56 WBC 8.6 (3.8-10.6) k/uL RBC 4.99 (4.30-5.90) m/uL Hgb 15.6 (13.0-17.5) gm/dL Hct 44.1 (39.0-53.0) % MCV 88.3 (80.0-100.0) fL MCH 31.2 (25.0-35.0) pg MCHC 35.3 (31.0-37.0) g/dL RDW 13.4 (11.5-15.5) % Plt Count 198 (150-450) k/uL Neutrophils % 72 % Lymphocytes % 17 % Monocytes % 6 % Eosinophils % 1 % Basophils % 1 % Neutrophils # 6.2 (1.3-7.7) k/uL Lymphocytes # 1.5 (1.0-4.8) k/uL Monocytes # 0.5 (0-1.0) k/uL Eosinophils # 0.1 (0-0.7) k/uL Basophils # 0.1 (0-0.2) k/uL PT 10.0 (9.0-12.0) sec INR 1.0 (<1.2) APTT 23.1 (22.0-30.0) sec Sodium 143 (137-145) mmol/L Potassium 3.6 (3.5-5.1) mmol/L Chloride 101 (98-107) mmol/L Carbon Dioxide 30 (22-30) mmol/L Anion Gap 12 mmol/L BUN 19 (9-20) mg/dL Creatinine 1.07 (0.66-1.25) mg/dL Est GFR (MDRD) Af Amer >60 (>60 ml/min/1.73 sqM) Est GFR (MDRD) Non-Af >60 (>60 ml/min/1.73 sqM) Glucose 204 H (74-99) mg/dL Calcium 9.7 (8.4-10.2) mg/dL Total Bilirubin 0.4 (0.2-1.3) mg/dL AST 28 (17-59) U/L ALT 44 (21-72) U/L Alkaline Phosphatase 79 (38-126) U/L Total Protein 7.5 (6.3-8.2) g/dL Albumin 4.6 (3.5-5.0) g/dL Amylase <30 L (30-110) U/L Lipase 30 (23-300) U/L Urine Color Urine Appearance (Clear) Urine pH (5.0-8.0) Ur Specific [place] (1.001-1.035) Urine Protein (Negative) Urine Glucose (UA) (Negative) Urine Ketones (Negative) Urine Blood (Negative) Urine Nitrite (Negative) Urine Bilirubin (Negative) Urine Urobilinogen (<2.0) mg/dL Ur Leukocyte Esterase (Negative) Urine RBC (0-5) /hpf Urine WBC (0-5) /hpf Ur Squamous Epith Cells (0-4) /hpf Hyaline Casts (0-2) /lpf Urine Mucus (None) /hpf 10/11/16 Range/Units 10:56 WBC (3.8-10.6) k/uL RBC (4.30-5.90) m/uL Hgb (13.0-17.5) gm/dL Hct (39.0-53.0) % MCV (80.0-100.0) fL MCH (25.0-35.0) pg MCHC (31.0-37.0) g/dL RDW (11.5-15.5) % Plt Count (150-450) k/uL Neutrophils % % Lymphocytes % % Monocytes % % Eosinophils % % Basophils % % Neutrophils # (1.3-7.7) k/uL Lymphocytes # (1.0-4.8) k/uL Monocytes # (0-1.0) k/uL Eosinophils # (0-0.7) k/uL Basophils # (0-0.2) k/uL PT (9.0-12.0) sec INR (<1.2) APTT (22.0-30.0) sec Sodium (137-145) mmol/L Potassium (3.5-5.1) mmol/L Chloride (98-107) mmol/L Carbon Dioxide (22-30) mmol/L Anion Gap mmol/L BUN (9-20) mg/dL Creatinine (0.66-1.25) mg/dL Est GFR (MDRD) Af Amer (>60 ml/min/1.73 sqM) Est GFR (MDRD) Non-Af (>60 ml/min/1.73 sqM) Glucose (74-99) mg/dL Calcium (8.4-10.2) mg/dL Total Bilirubin (0.2-1.3) mg/dL AST (17-59) U/L ALT (21-72) U/L Alkaline Phosphatase (38-126) U/L Total Protein (6.3-8.2) g/dL Albumin (3.5-5.0) g/dL Amylase (30-110) U/L Lipase (23-300) U/L Urine Color Yellow Urine Appearance Clear (Clear) Urine pH 5.5 (5.0-8.0) Ur Specific [place] 1.025 (1.001-1.035) Urine Protein 1+ H (Negative) Urine Glucose (UA) Negative (Negative) Urine Ketones Negative (Negative) Urine Blood Negative (Negative) Urine Nitrite Negative (Negative) Urine Bilirubin Negative (Negative) Urine Urobilinogen <2.0 (<2.0) mg/dL Ur Leukocyte Esterase Negative (Negative) Urine RBC <1 (0-5) /hpf Urine WBC 2 (0-5) /hpf Ur Squamous Epith Cells <1 (0-4) /hpf Hyaline Casts 50 H (0-2) /lpf Urine Mucus Rare H (None) /hpf - Radiology Data Radiology results: report reviewed, image reviewed Disposition Clinical Impression: Chronic abdominal pain Disposition: HOME SELF-CARE Condition: Stable Instructions: Abdominal Pain (ED) Additional Instructions: Please use medication as discussed. Please follow up with family doctor if symptoms have not improved over the next two days. Please return to the emergency room if your symptoms increase or worsen or for any other concerns. Referrals: Dean Evangelista MD [Primary Care Provider] - 1-2 days Time of Disposition: 12:40
[2016-10-11 11:21] LABS: Partial Thromboplastin Time 23.1 sec (22.0-30.0)
[2016-10-11 11:27] LABS: ALT 44 U/L (21-72); AST 28 U/L (17-59); Alkaline Phosphatase 79 U/L (38-126); Amylase <30 U/L (30-110); Anion Gap 12 mmol/L; Blood Urea Nitrogen 19 mg/dL (9-20); Calcium 9.7 mg/dL (8.4-10.2); Carbon Dioxide 30 mmol/L (22-30); Chloride 101 mmol/L (98-107); Glucose 204 mg/dL (74-99); Non-African American GFR(MDRD) >60 (>60 ml/min/1.73 sqM); Potassium 3.6 mmol/L (3.5-5.1); Sodium 143 mmol/L (137-145); Total Bilirubin 0.4 mg/dL (0.2-1.3); Total Protein 7.5 g/dL (6.3-8.2)
[2016-10-11 11:29] LABS: Appearance,Urine Clear (Clear); Bilirubin,Urine Negative (Negative); Glucose,Urine (UA) Negative (Negative); Ketones,Urine Negative (Negative); Leukocyte Esterase,Urine Negative (Negative); Mucus,Urine Rare /hpf; Nitrite,Urine Negative (Negative); PH, Urine 5.5 (5.0-8.0); Particle Count 4776; Protein,Urine 1+ (Negative); RBC,Urine <1 /hpf (0-5); Specific Gravity,Urine 1.025 (1.001-1.035); Squamous Epithelial Cell,Urine <1 /hpf (0-4); UA Billing (MACRO vs. MICRO) MICRO; Urobilinogen,Urine <2.0 mg/dL (<2.0); WBC,Urine 2 /hpf (0-5)
[2016-10-11 11:32] LABS: Basophils # (A) 0.1 k/uL (0-0.2); Basophils % (A) 1 %; CH 30.8; CHCM 34.9; Eosinophils # (A) 0.1 k/uL (0-0.7); Eosinophils % (A) 1 %; HCT 44.1 % (39.0-53.0); HDW 2.67; HGB 15.6 gm/dL (13.0-17.5); Luc # (Auto) 0.29; Luc % (Auto) 3; Lymphocytes # (A) 1.5 k/uL (1.0-4.8); Lymphocytes % (A) 17 %; MCH 31.2 pg (25.0-35.0); MCHC 35.3 g/dL (31.0-37.0); MCV 88.3 fL (80.0-100.0); Mean Platelet Volume 8.8; Monocytes # (A) 0.5 k/uL (0-1.0); Monocytes % (A) 6 %; Neutrophils # (A) 6.2 k/uL (1.3-7.7); Neutrophils % (A) 72 %; RBC 4.99 m/uL (4.30-5.90); RDW 13.4 % (11.5-15.5); WBC 8.6 k/uL (3.8-10.6); WBC (Perox) 8.26
--- NOTE | 2016-10-11 12:38 | CT ---
EXAMINATION TYPE: CT abdomen pelvis wo con DATE OF EXAM: 10/11/2016 COMPARISON: 07/18/2016 HISTORY: Lower pelvic pain CT DLP: 1277 mGycm Examination of the solid and hollow viscera is limited given the lack of contrast. FINDINGS: LUNG BASES: No evidence for nodule. No evidence for infiltrate. LIVER/GB: Cholecystectomy changes identified. No space-occupying hepatic lesion. PANCREAS: No pancreatic mass identified. No inflammatory process seen. SPLEEN: No evidence for splenomegaly. No intrasplenic lesions seen. ADRENALS: No adrenal nodules identified. No evidence for thickening. KIDNEYS: 3 mm nonobstructing calculus mid pole right kidney. Stable hypodense lesion left kidney may reflect a cyst. No hydronephrosis. BOWEL: Appendix has a normal appearance. No evidence of bowel obstruction. No inflammatory process. Lymph nodes: No evidence for adenopathy greater than 1 cm. Abdominal aorta: Atheromatous changes seen. No evidence for aneurysm. Genital organs: No significant abnormality. Other: Low anterior abdominal wall hernia is unchanged relative to the prior study and demonstrates w maynor mouth. No evidence for strangulation. Left inguinal hernia noted that contains fat. Small contain ing upper abdominal ventral hernia. Lumbar degenerative changes as well as postoperative change. Stab le subcutaneous density right lower quadrant with foci of air likely reflects the site of injection. IMPRESSION: 1. NO ACUTE INTRA-ABDOMINAL PROCESS. 2. NONOBSTRUCTING RIGHT RENAL CALCULUS. 3. MULTIPLE VENTRAL HERNIAS DISCUSSED.
[2016-10-11 13:13] VITALS: BP 150/79; PULSE 88; RESP 20
== END 2016-10-11 13:10 | disposition home or self-care (01) ==
LOC: EC 09:03
DX: R10.31 Right lower quadrant pain (principal); G89.29 Other chronic pain; I10 Essential (primary) hypertension; E78.5 Hyperlipidemia, unspecified; M19.90 Unspecified osteoarthritis, unspecified site; E11.9 Type 2 diabetes mellitus without complications; F41.9 Anxiety disorder, unspecified; Z85.46 Personal history of malignant neoplasm of prostate; Z90.49 Acquired absence of other specified parts of digestive tract; Z96.652 Presence of left artificial knee joint; Z79.4 Long term (current) use of insulin; Z79.82 Long term (current) use of aspirin; Z79.899 Other long term (current) drug therapy; Z88.0 Allergy status to penicillin; Z88.8 Allergy status to other drugs, medicaments and biological substances; Z91.041 Radiographic dye allergy status; Z91.048 Other nonmedicinal substance allergy status
CPT/HCPCS: 99284; 96374; 96375; 96376; 36415; 80053; 82150; 83690; 85025; 85610; 85730; 81001; 87086; 74176; J2405; J1170

== ENCOUNTER 2016-10-13 03:58 | Emergency (ER) | payer MEDICARE, BC ==
[2016-10-13 04:12] VITALS: BP 125/68; PULSE 64; RESP 20; TEMP 99.1
[2016-10-13] MEDS ORDERED: MORPHINE SULFATE 10 MG/ML SYRINGE IM STA (04:27)
--- NOTE | 2016-10-13 04:31 | ED ---
General Adult HPI - General Chief complaint: Abdominal Pain Stated complaint: abdominal pain Time Seen by Provider: 10/13/16 04:18 Source: patient, RN notes reviewed Mode of arrival: wheelchair Limitations: no limitations - History of Present Illness Initial comments: Patient is a pleasant 76-year-old male presenting to the emergency Department with his for chronic abdominal pain. Symptoms have been present for many years, well over 10. Patient has had 2 previous surgeries. Patient is scheduled for surgery again Tuesday regarding adhesions and mesh. Patient was just here. Days ago and had evaluation including computed tomography scan. Patient and request a pain shot. Patient has had recent change in his pain medications and was recently discontinued from fentanyl and another medication. The plan was to increase the Duck however this prescription has not yet been filled. They state the doctor's office sent to the wrong pharmacy. They both request pain medication in the form of an injection. Patient and do not want any further evaluation or blood work or x-rays done. - Related Data Home Medications Medication Instructions Recorded Confirmed INSULIN LISPRO (humaLOG) [humaLOG See Protocol SQ ACHS PRN 11/07/13 10/11/16 (formulary)] amLODIPine [Norvasc] 10 mg PO W/SUPPER 11/07/13 10/11/16 Amiodarone [Cordarone] 200 mg PO W/SUPPER 03/23/15 10/11/16 Aspirin [Adult Low Dose Aspirin EC] 81 mg PO DIRECTED 03/23/15 10/11/16 Cholecalciferol [Vitamin D3] 1,000 unit PO DIRECTED 07/14/15 10/11/16 Insulin Glargine [Lantus] 40 unit SQ HS 07/14/15 10/11/16 HYDROcodone/APAP 7.5-325MG [[place] 2 tab PO Q4H PRN 09/22/15 10/11/16 7.5-325] Gabapentin [Neurontin] 300 mg PO Q8HR PRN 07/18/16 10/11/16 Baclofen 10 mg PO HS 10/08/16 10/11/16 Pravastatin Sodium [Pravachol] 40 mg PO HS 10/08/16 10/11/16 Magnesium Hydroxide [Milk of 400 mg PO DAILY PRN 10/11/16 10/11/16 Magnesia] Allergies Allergy/AdvReac Type Severity Reaction Status Date / Time Iodinated Contrast- Oral and Allergy Rash/Hives Verified 10/13/16 04:12 IV Dye iodine Allergy Rash/Hives Verified 10/13/16 04:12 Penicillins Allergy Swelling Verified 10/13/16 04:12 duloxetine [From Cymbalta] AdvReac PRICKLY Verified 10/13/16 04:12 FEELING IN HEAD Surgical Scrub Allergy Unknown Itching, Uncoded 10/13/16 04:12 Red skin Review of Systems ROS Statement: Those systems with pertinent positive or pertinent negative responses have been documented in the HPI. ROS Other: All systems not noted in ROS Statement are negative. Constitutional: Denies: fever Eyes: Denies: eye pain ENT: Denies: ear pain Respiratory: Denies: cough Cardiovascular: Denies: chest pain Endocrine: Denies: fatigue Gastrointestinal: Reports: abdominal pain Genitourinary: Denies: dysuria Musculoskeletal: Denies: back pain Skin: Denies: rash Neurological: Denies: weakness Psychiatric: Denies: depression Past Medical History Past Medical History: Coronary Artery Disease (CAD), Cancer, Diabetes Mellitus, Hyperlipidemia, Hypertension, Osteoarthritis (OA), Prostate Disorder, Sleep Apnea/CPAP/BIPAP Additional Past Medical History / Comment(s): Prostate cancer-2010- tx with radiation. USES CPAP. HAS ABD ADHESIONS, HAS SEVERE ABD PAIN. History of Any Multi-Drug Resistant Organisms: None Reported Past Surgical History: Appendectomy, Back Surgery, Cholecystectomy, Coronary Bypass/CABG, Heart Catheterization, Hernia Repair, Joint Replacement, Orthopedic Surgery Additional Past Surgical History / Comment(s): ORIF LT Ankle. ORIF LT Fibula Surgery. RT Knee Replacement. 2008 Triple CABG. Abdominal adhesions. Fatty tumor from neck. CTR jono. Abdominal surgery with mesh in 2001. Back nerve surgery. Rotator cuff-left shoulder. ING hernia repair w/ mesh. 3 fatty tumors removed 08/15/15 Past Anesthesia/Blood Transfusion Reactions: No Reported Reaction Past Psychological History: Anxiety Smoking Status: Never smoker - Past Family History Father History Unknown: Yes Family Medical History: Cancer Additional Family Medical History / Comment(s): PROSTATE CANCER Son(s) Family Medical History: Cancer Additional Family Medical History / Comment(s): TESTICULAR CANCER Mother Family Medical History: Coronary Artery Disease (CAD), Hypertension Sister(s) Family Medical History: Cancer General Exam Limitations: no limitations General appearance: alert, in no apparent distress Head exam: Present: atraumatic Eye exam: Present: normal appearance, PERRL ENT exam: Present: normal oropharynx Neck exam: Present: normal inspection Respiratory exam: Present: normal lung sounds bilaterally Cardiovascular Exam: Present: regular rate, normal rhythm Expanded Peripheral pulses: 2+: Dorsalis Pedis (R), Dorsalis Pedis (L) GI/Abdominal exam: Present: soft, tenderness (Minimal tenderness right lower quadrant), normal bowel sounds. Absent: distended, guarding, rebound, rigid, pulsatile mass Extremities exam: Present: normal inspection, other (Right lower leg brace) Neurological exam: Present: alert Psychiatric exam: Present: normal affect, normal mood Skin exam: Present: normal color Course Vital Signs 10/13/16 04:06 Temperature 99.1 F Pulse Rate 64 Respiratory 20 Rate Blood Pressure 125/68 O2 Sat by Pulse 99 Oximetry - Reevaluation(s) Reevaluation #1: 10/13/16 04:30 Patient and request pain injection refuses further evaluation. They're agreeable to follow-up with primary care physician in the morning. Disposition Clinical Impression: Chronic abdominal pain Disposition: HOME SELF-CARE Condition: Stable Instructions: Abdominal Pain (ED) Additional Instructions: Please follow-up this morning with your primary care physician and surgeon. Return for fever, vomiting, change or worsening of chronic symptoms or other concerns. Referrals: Dean Evangelista MD [Primary Care Provider] - 1-2 days Time of Disposition: 04:31
== END 2016-10-13 04:47 | disposition home or self-care (01) ==
LOC: EC 03:58
DX: G89.29 Other chronic pain (principal); R10.31 Right lower quadrant pain; I25.10 Atherosclerotic heart disease of native coronary artery without angina pectoris; E11.9 Type 2 diabetes mellitus without complications; E78.5 Hyperlipidemia, unspecified; I10 Essential (primary) hypertension; M19.90 Unspecified osteoarthritis, unspecified site; Z90.49 Acquired absence of other specified parts of digestive tract; Z95.1 Presence of aortocoronary bypass graft; Z88.0 Allergy status to penicillin; Z88.8 Allergy status to other drugs, medicaments and biological substances; Z91.041 Radiographic dye allergy status; Z91.048 Other nonmedicinal substance allergy status; Z79.4 Long term (current) use of insulin; Z79.82 Long term (current) use of aspirin; Z79.899 Other long term (current) drug therapy
CPT/HCPCS: 99283; 96372; J2270

== ENCOUNTER 2016-10-15 08:30 | Inpatient (IN) | payer MEDICARE, BC ==
[2016-10-08 15:26] VITALS: BMI 34.4
[~2016-10-15 08:30] MED LIST: CLINDAMYCIN 900 MG in DEXTROSE 5% IN WATER 50 ML IVPB ONE; DEXAMETHASONE SOD PHOSPHATE 10 MG/ML 1 ML VIAL IV ONE; HEPARIN SODIUM,PORCINE 5,000 UNIT/ML 1 ML VIAL SQ ONE; MIDAZOLAM 2 MG/2 ML VIAL IV PRN; ONDANSETRON 4 MG/2 ML VIAL IVP ONE; SCOPOLAMINE 1.5MG/72HR PATCH TRANSDERM ONE
--- NOTE | 2016-10-15 10:06 | P.GSHP ---
History of Present Illness H&P Date: 10/15/16 CHIEF COMPLAINT: Abdominal pain. HISTORY OF PRESENT ILLNESS: Tucker Vega is a 76 years-old male who comes in with progressive abdominal pain, particularly of the right lower quadrant. He has a history of multiple ventral hernia repairs and scar tissue removal. Over the past two years, he has been to the emergency room multiple times and now his pain has come to be extremely severe. He now presents for further evaluation and management. He has seen his head charrer. He has also seen his urologist. His family, son and , are at his bedside. PAST MEDICAL HISTORY: Please see list. PAST SURGICAL HISTORY: Please see list. MEDICATIONS: Please see list. ALLERGIES: Please see list. SOCIAL HISTORY: No illicit drug use FAMILY HISTORY: No reports of Crohn disease or ulcerative colitis. REVIEW OF ORGAN SYSTEMS: Additionally reports: Neurological: History of chronic pain of the abdomen, with some relief with pain clinic. Has early dementia. CARDIOVASCULAR: Denies any recent chest pain, palpitations, or recent heart attacks. GASTROINTESTINAL: Reports chronic constipation. CONSTITUTIONAL: No fevers or chills. HEENT: Denies any trouble with vision, hearing or nosebleeds. No difficulty swallowing. Wears glasses. LYMPHATIC: The patient denies any lumps and bumps around the neck. ENDOCRINE: Denies any thyroid disorders. Has blood sugar glucose intolerance. RESPIRATORY: Denies pneumonia. Denies any troubles with breathing or dyspnea on exertion. GENITOURINARY: Denies any blood in urine or increased urinary frequency. MUSCULOSKELETAL: Has back pain, stiffness, joint arthritis. PSYCHIATRIC: Has depression. He has had suicidal ideation. Has anxiety. HEMATOLOGIC: Denies any abnormal bleeding or bruising. BREASTS: Denies any breast lumps, pain or nipple discharge. Patient is a 76-year-old male. PHYSICAL EXAMINATION: Abdomen: Focal tenderness along the right lower quadrant. No recurrent hernia palpated along the right. GENERAL: Well developed and in no acute distress. Pleasant. HEENT: No sclera icterus. Extraocular movements grossly intact. Moist buccal mucosa. Head is atraumatic, normocephalic. Hears conversational speech. No nasal drainage. NECK: Supple without lymphadenopathy. No JV distention. CHEST: Non-labored respirations and equal bilateral excursions. CARDIOVASCULAR: Regular rate and rhythm. Palpable 2+ radial pulses. MUSCULOSKELETAL: No clubbing, cyanosis or edema. NEUROLOGIC: No focal or lateralizing signs. PSYCH: Appropriate affect. Alert and oriented to person, place and time. STUDIES: CT of the abdomen/pelvis was obtained in June of 2016 and demonstrated a left inguinal hernia. There are findings of a ventral hernia within the abdominal wall. Ultrasound including of the groin and scrotum demonstrated right hydrocele. There are no recurrent right groin hernia identified. ASSESSMENT: 1. History of chronic right lower quadrant abdominal pain, now more progressive. 2. Chronic pain syndrome. PLAN: 1. He has a known history of peritoneal adhesions, which actually puts him at risk for his chronic pain. I have discussed with him and his family the risks of bleeding and infection, injury to the bowel including the length of time frame for surgery, which they had agreed to precede. 2. Benefits risk of surgical intervention for exploratory laparotomy lysis of adhesions were reviewed. 3. I have also reviewed with him the studies in detail of the findings of the recent CT scan, which he had demonstrated understanding. 4. He will need inpatient hospitalization given the exploratory laparotomy. 5. DVT prophylaxis. 6. Antibiotic prophylaxis. Past Medical History Past Medical History: Coronary Artery Disease (CAD), Cancer, Diabetes Mellitus, Hyperlipidemia, Hypertension, Osteoarthritis (OA), Prostate Disorder, Sleep Apnea/CPAP/BIPAP Additional Past Medical History / Comment(s): Prostate cancer-2010- tx with radiation. USES CPAP. HAS ABD ADHESIONS, HAS SEVERE ABD PAIN. History of Any Multi-Drug Resistant Organisms: None Reported Past Surgical History: Appendectomy, Back Surgery, Cholecystectomy, Coronary Bypass/CABG, Heart Catheterization, Hernia Repair, Joint Replacement, Orthopedic Surgery Additional Past Surgical History / Comment(s): ORIF LT Ankle. ORIF LT Fibula Surgery. RT Knee Replacement. 2009 Triple CABG. Abdominal adhesions. Fatty tumor from neck. CTR jono. Abdominal surgery with mesh in 2001. Back nerve surgery. Rotator cuff-left shoulder. ING hernia repair w/ mesh. 3 fatty tumors removed 08/15/15 Past Anesthesia/Blood Transfusion Reactions: No Reported Reaction Past Psychological History: Anxiety Smoking Status: Never smoker - Past Family History Father History Unknown: Yes Family Medical History: Cancer Additional Family Medical History / Comment(s): PROSTATE CANCER Son(s) Family Medical History: Cancer Additional Family Medical History / Comment(s): TESTICULAR CANCER Mother Family Medical History: Coronary Artery Disease (CAD), Hypertension Sister(s) Family Medical History: Cancer Medications and Allergies Home Medications Medication Instructions Recorded Confirmed Type INSULIN LISPRO (humaLOG) [humaLOG See Protocol SQ ACHS PRN 11/07/13 10/15/16 History (formulary)] amLODIPine [Norvasc] 10 mg PO W/SUPPER 11/07/13 10/15/16 History Amiodarone [Cordarone] 200 mg PO W/SUPPER 03/23/15 10/15/16 History Aspirin [Adult Low Dose Aspirin EC] 81 mg PO DIRECTED 03/23/15 10/11/16 History Cholecalciferol [Vitamin D3] 1,000 unit PO DIRECTED 07/14/15 10/11/16 History Insulin Glargine [Lantus] 40 unit SQ HS 07/14/15 10/15/16 History HYDROcodone/APAP 7.5-325MG [[place] 2 tab PO Q4H PRN 09/22/15 10/15/16 History 7.5-325] Gabapentin [Neurontin] 300 mg PO Q8HR PRN 07/18/16 10/15/16 History Baclofen 10 mg PO HS 10/08/16 10/11/16 History Pravastatin Sodium [Pravachol] 40 mg PO HS 10/08/16 10/11/16 History Magnesium Hydroxide [Milk of 400 mg PO DAILY PRN 10/11/16 10/11/16 History Magnesia] Allergies Allergy/AdvReac Type Severity Reaction Status Date / Time Iodinated Contrast- Oral and Allergy Rash/Hives Verified 10/13/16 04:12 IV Dye iodine Allergy Rash/Hives Verified 10/13/16 04:12 Penicillins Allergy Swelling Verified 10/13/16 04:12 duloxetine [From Cymbalta] AdvReac PRICKLY Verified 10/13/16 04:12 FEELING IN HEAD Surgical Scrub Allergy Unknown Itching, Uncoded 10/13/16 04:12 Red skin Surgical - Exam Vital Signs Temp Pulse Resp BP Pulse Ox 97.8 F 79 18 159/71 98 10/15/16 09:49 10/15/16 09:49 10/15/16 09:49 10/15/16 09:49 10/15/16 09:49
[2016-10-15] MEDS ORDERED: LIDOCAINE 1% 20 ML VIAL (10MG/ML) FOR IV START INTRADERMA ONE (10:17)
[2016-10-15] MEDS: LACTATED RINGERS 1,000 ML IV SCH (10:17)
[2016-10-15] MEDS ORDERED: MIDAZOLAM 2 MG/2 ML VIAL IVP ONE (10:35)
[2016-10-15] MEDS ORDERED: fentaNYL (PF) 50 MCG/ML 2 ML AMP IVP ONE (10:35)
[2016-10-15 10:36] LABS: Glucose,Whole Blood 138 mg/dL (75-99)
[2016-10-15] MEDS ORDERED: ALBUMIN HUMAN 5% 250 ML BOTTLE IVPB ONE (11:02)
[2016-10-15] MEDS ORDERED: ePHEDrine SULFATE/0.9% NACL/PF 50 MG/5 ML SYRINGE IV ONE (11:02)
[2016-10-15] MEDS ORDERED: LIDOCAINE 1% INJ 10MG/ML (20 ML MDV) ONE (11:02)
[2016-10-15] MEDS ORDERED: PHENYLEPHRINE-0.9% NACL SYG 1 MG/10 ML SYRINGE ONE (11:02)
[2016-10-15] MEDS ORDERED: NEOSTIGMINE 1 MG/ML 10 ML VIAL ONE (11:02)
[2016-10-15] MEDS ORDERED: PROPOFOL 10 MG/ML 20 ML VIAL IV ONE (11:02)
[2016-10-15] MEDS ORDERED: fentaNYL (PF) 50 MCG/ML 2 ML AMP ONE (11:02)
[2016-10-15] MEDS ORDERED: GLYCOPYRROLATE 0.2 MG/ML 2 ML VIAL ONE (11:02)
[2016-10-15] MEDS ORDERED: MIDAZOLAM 2 MG/2 ML VIAL ONE (11:02)
[2016-10-15] MEDS ORDERED: ROCURONIUM BROMIDE 10 MG/ML 10 ML VIAL IV ONE (11:02)
[2016-10-15] MEDS ORDERED: LACTATED RINGERS 1,000 ML IV ONE ×2 (11:15→13:16)
[2016-10-15] MEDS ORDERED: NALOXONE 0.4 MG/ML 1 ML VIAL IV PRN (11:25)
[2016-10-15] MEDS: BUPIVACAINE (PF) 0.5% 37.5 ML, HYDROMORPHONE (PF) 5 MG in SODIUM CHLORIDE 0.9% 212 ML EPIDURAL PRN ×2 (14:54→15:45)
--- NOTE | 2016-10-15 15:02 | P.PCN ---
Date of Procedure: 10/15/16 Preoperative Diagnosis: Chronic abdominal pain, history of multiple abdominal surgeries, peritoneal adhesions Postoperative Diagnosis: Same Procedure(s) Performed: 1. Extensive laparoscopic lysis of adhesions over 3 hours 2. Peritoneal lavage 3 L normal saline solution. 3. Placement of JIGAR drain #19 round, left lower quadrant. Implants: Anesthesia: AVTARA Surgeon: Loni Christensen Estimated Blood Loss (ml): 75 Pathology: none sent Condition: stable Disposition: floor Indications for Procedure: Operative Findings: 1. Severe interloop and peritoneal adhesions involving the entire abdomen of the small bowel to abdominal wall including greater omentum to the abdominal wall. 2. Thick cicatrix along the lower abdomen over 4 cm from previous multiple abdominal mesh repair. 3. Severe adhesion involving the right lower quadrant of small bowel, ileum to the right lower pelvis consistent with the patient's area of pain. 4. Entire lysis of adhesions performed over 3 hours. 5. Abdominal peritoneal lavage 3 L performed. 6. Nasogastric tube placed for manipulation of the small bowel. Description of Procedure:
[2016-10-15] MEDS: HYDROmorphone 1 MG/ML 1 ML SYRINGE IVP PRN ×5 (15:08→21:24)
[2016-10-15 15:58] LABS: Glucose,Whole Blood 257 mg/dL (75-99)
[2016-10-15] MEDS ORDERED: INSULIN LISPRO (humaLOG) 300 UNIT/3 ML VIAL SQ ONE (16:00)
[2016-10-15] MEDS: METOCLOPRAMIDE 5 MG/ML 2 ML VIAL IVP SCH ×2 (16:57→20:47)
[2016-10-15 17:08] LABS: Glucose,Whole Blood 287 mg/dL (75-99)
[2016-10-15] MEDS: amLODIPine 10 MG TAB PO SCH (17:53)
[2016-10-15] MEDS: AMIODARONE 200 MG TAB PO SCH (17:53)
[2016-10-15] MEDS: ASPIRIN 81 MG PO SCH (17:54)
[2016-10-15] MEDS: 0.9% NACL WITH KCL 20 MEQ/L 1,000 ML IV SCH (17:56)
[2016-10-15 20:36] LABS: Glucose,Whole Blood 238 mg/dL (75-99)
[2016-10-15] MEDS: HEPARIN SODIUM,PORCINE 5,000 UNIT/ML 1 ML VIAL SQ SCH (20:47)
[2016-10-16] MEDS: METOCLOPRAMIDE 5 MG/ML 2 ML VIAL IVP SCH ×4 (02:35→21:45)
[2016-10-16] MEDS: HYDROmorphone 1 MG/ML 1 ML SYRINGE IVP PRN ×5 (02:44→21:55)
[2016-10-16] MEDS: LACTATED RINGERS 1,000 ML IV SCH (06:51)
[2016-10-16 06:58] LABS: Glucose,Whole Blood 199 mg/dL (75-99)
[2016-10-16 07:56] LABS: Basophils % (A) 0 %; CH 31.7; CHCM 34.3; Eosinophils % (A) 0 %; HDW 2.48; HGB 13.1 gm/dL (13.0-17.5); Luc # (Auto) 0.25; Luc % (Auto) 2; Lymphocytes # (A) 1.1 k/uL (1.0-4.8); Lymphocytes % (A) 8 %; MCH 30.4 pg (25.0-35.0); MCHC 32.8 g/dL (31.0-37.0); MCV 92.6 fL (80.0-100.0); Mean Platelet Volume 8.9; Monocytes # (A) 0.7 k/uL (0-1.0); Monocytes % (A) 5 %; Neutrophils # (A) 11.3 k/uL (1.3-7.7); Neutrophils % (A) 85 %; RBC 4.32 m/uL (4.30-5.90); RDW 14.3 % (11.5-15.5); WBC 13.3 k/uL (3.8-10.6); WBC (Perox) 13.46
[2016-10-16] MEDS: HEPARIN SODIUM,PORCINE 5,000 UNIT/ML 1 ML VIAL SQ SCH ×2 (08:02→21:45)
[2016-10-16] MEDS: INSULIN LISPRO (humaLOG) 300 UNIT/3 ML VIAL SQ SCH ×3 (08:02→17:48)
[2016-10-16] MEDS: PANTOPRAZOLE 40 MG/10 ML VIAL IV SCH (08:02)
[2016-10-16 08:35] LABS: ALT 36 U/L (21-72); AST 53 U/L (17-59); Alkaline Phosphatase 55 U/L (38-126); Anion Gap 9 mmol/L; Blood Urea Nitrogen 14 mg/dL (9-20); Calcium 8.8 mg/dL (8.4-10.2); Carbon Dioxide 29 mmol/L (22-30); Chloride 102 mmol/L (98-107); Glucose 195 mg/dL (74-99); Magnesium 1.7 mg/dL (1.6-2.3); Non-African American GFR(MDRD) >60 (>60 ml/min/1.73 sqM); Phosphorous 2.6 mg/dL (2.5-4.5); Potassium 4.3 mmol/L (3.5-5.1); Sodium 140 mmol/L (137-145); Total Bilirubin 0.4 mg/dL (0.2-1.3); Total Protein 5.8 g/dL (6.3-8.2)
[2016-10-16 11:25] LABS: Glucose,Whole Blood 105 mg/dL (75-99)
[2016-10-16] MEDS: BUPIVACAINE (PF) 0.5% 37.5 ML, HYDROMORPHONE (PF) 5 MG in SODIUM CHLORIDE 0.9% 212 ML EPIDURAL PRN (11:45)
[2016-10-16 14:17] LABS: Hemoglobin A1C 7.1 % (4.2-6.1)
[2016-10-16] MEDS: 0.9% NACL WITH KCL 20 MEQ/L 1,000 ML IV SCH (16:25)
[2016-10-16 17:40] LABS: Glucose,Whole Blood 132 mg/dL (75-99)
[2016-10-16] MEDS: amLODIPine 10 MG TAB PO SCH (17:52)
[2016-10-16] MEDS: ASPIRIN 81 MG PO SCH (17:52)
[2016-10-16] MEDS: AMIODARONE 200 MG TAB PO SCH (17:52)
--- NOTE | 2016-10-16 20:46 | P.PN ---
Progress Note - Text post op day one that is post lysis of adhesions, epidural analgesia, Bupivacaine /Dilaudid at 10 mL per hour, and was complaining of severe pain epidural infusion increased to 12 mL per hour, he reports his pain level 4-5/10, nato signs stable, epidural sit okay , patient had no motor deficit Treatment and plan= equipment pain controle ,continue the current management
[2016-10-16 21:50] LABS: Glucose,Whole Blood 185 mg/dL (75-99)
--- NOTE | 2016-10-16 22:50 | P.PN ---
Subjective Principal diagnosis: Abdominal pain Patient is sitting up in bed and is comfort. No nausea or vomiting. He his still complaining of abdominal pain. He has not passed any flatus. Objective - Vital Signs Vital signs: Vital Signs Temp 98 F 10/16/16 14:18 Pulse 72 10/16/16 16:00 Resp 16 10/16/16 16:00 BP 132/67 10/16/16 14:18 Pulse Ox 95 10/16/16 14:18 Intake & Output 10/16/16 10/16/16 10/17/16 06:59 18:59 06:59 Intake Total 1400 300 Output Total 1480 215 Balance -80 85 Weight 99.79 kg Intake: IV 300 0.9% NaCl with KCl 20 Meq 300 /l 1,000 ml @ 75 mls/hr IV .[id number] AALIYAH Rx#: [id number] Intake, IV Titration 1200 Amount 0.9% NaCl with KCl 20 Meq 1200 /l 1,000 ml @ 75 mls/hr IV .[id number] AALIYAH Rx#: [id number] Oral 200 Output: Gastric Drainage 200 200 Drainage 80 15 Left 80 15 Urine 1200 Other: Voiding Method Indwelling Catheter Indwelling Catheter - Constitutional General appearance: Present: average body habitus, cooperative - EENT Eyes: Present: PERRLA - Gastrointestinal Gastrointestinal Comment(s): diffuse tenderness, , dressing in tact. Minimal drainage on it. - Labs CBC & Chem 7: 10/16/16 07:08 10/16/16 07:08 Labs: Abnormal Lab Results - Last 24 Hours (Table) 10/16/16 10/16/16 10/16/16 Range/Units 06:34 07:08 07:08 WBC 13.3 H (3.8-10.6) k/uL Neutrophils # 11.3 H (1.3-7.7) k/uL Glucose (74-99) mg/dL POC Glucose (mg/dL) 199 H (75-99) mg/dL Hemoglobin A1c 7.1 H (4.2-6.1) % Total Protein (6.3-8.2) g/dL 10/16/16 10/16/16 10/16/16 Range/Units 07:08 11:22 17:19 WBC (3.8-10.6) k/uL Neutrophils # (1.3-7.7) k/uL Glucose 195 H (74-99) mg/dL POC Glucose (mg/dL) 105 H 132 H (75-99) mg/dL Hemoglobin A1c (4.2-6.1) % Total Protein 5.8 L (6.3-8.2) g/dL 10/16/16 Range/Units 21:34 WBC (3.8-10.6) k/uL Neutrophils # (1.3-7.7) k/uL Glucose (74-99) mg/dL POC Glucose (mg/dL) 185 H (75-99) mg/dL Hemoglobin A1c (4.2-6.1) % Total Protein (6.3-8.2) g/dL Assessment and Plan (1) Chronic abdominal pain Status: Acute Plan: patient is s/p exploratory laparotomy. DOing ok. Anesthesia change the epidural level. Await bowel function.
--- NOTE | 2016-10-16 23:23 | P.CONS ---
History of Present Illness - Reason for Consult Consult date: 10/16/16 Medical management of hypertension diabetes mellitus and other multiple med - Chief Complaint Chronic abdominal pain - History of Present Illness Patient is a 76-year-old male with a known history of hypertension, hyperlipidemia, coronary artery bypass graft, hernia repair, prostate cancer status post radiation and other medical problems including chronic abdominal pain with multiple admissions was admitted to the hospital for extensive lysis of adhesions. Currently patient denies any pain. No chest pain no short of breath. Patient does have nausea no vomiting. No dizziness or lightheadedness. Review of Systems CONSTITUTIONAL: No fever, no malaise, no fatigue. HEENT: No recent visual problems or hearing problems. Denied any sore throat. CARDIOVASCULAR: No chest pain, orthopnea, PND, no palpitations, no syncope. PULMONARY: , no hemoptysis. GASTROINTESTINAL: No diarrhea, no nausea, no vomiting, no abdominal pain. Normoactive bowel sounds. NEUROLOGICAL: No headaches, no weakness, no numbness. HEMATOLOGICAL: Denies any bleeding or petechiae. GENITOURINARY: Denies any burning micturition, frequency, or urgency. MUSCULOSKELETAL/RHEUMATOLOGICAL: Denies any joint pain, swelling, or any muscle pain. ENDOCRINE: Denies any polyuria or polydipsia. The rest of the 14-point review of systems is negative. Past Medical History Past Medical History: Coronary Artery Disease (CAD), Cancer, Diabetes Mellitus, Hyperlipidemia, Hypertension, Osteoarthritis (OA), Prostate Disorder, Sleep Apnea/CPAP/BIPAP Additional Past Medical History / Comment(s): Prostate cancer-2011- tx with radiation. USES CPAP. HAS ABD ADHESIONS, HAS SEVERE ABD PAIN. History of Any Multi-Drug Resistant Organisms: None Reported Past Surgical History: Appendectomy, Back Surgery, Cholecystectomy, Coronary Bypass/CABG, Heart Catheterization, Hernia Repair, Joint Replacement, Orthopedic Surgery Additional Past Surgical History / Comment(s): ORIF LT Ankle. ORIF LT Fibula Surgery. RT Knee Replacement. 2008 Triple CABG. Abdominal adhesions. Fatty tumor from neck. CTR jono. Abdominal surgery with mesh in 2001. Back nerve surgery. Rotator cuff-left shoulder. ING hernia repair w/ mesh. 3 fatty tumors removed 08/15/15 Past Anesthesia/Blood Transfusion Reactions: No Reported Reaction Past Psychological History: Anxiety Smoking Status: Never smoker Past Alcohol Use History: None Reported Past Drug Use History: None Reported - Past Family History Father History Unknown: Yes Family Medical History: Cancer Additional Family Medical History / Comment(s): PROSTATE CANCER Son(s) Family Medical History: Cancer Additional Family Medical History / Comment(s): TESTICULAR CANCER Mother Family Medical History: Coronary Artery Disease (CAD), Hypertension Sister(s) Family Medical History: Cancer Medications and Allergies Home Medications Medication Instructions Recorded Confirmed Type INSULIN LISPRO (humaLOG) [humaLOG See Protocol SQ ACHS PRN 11/07/13 10/15/16 History (formulary)] amLODIPine [Norvasc] 10 mg PO W/SUPPER 11/07/13 10/15/16 History Amiodarone [Cordarone] 200 mg PO W/SUPPER 03/23/15 10/15/16 History Aspirin [Adult Low Dose Aspirin EC] 81 mg PO DIRECTED 03/23/15 10/15/16 History Cholecalciferol [Vitamin D3] 1,000 unit PO DIRECTED 07/14/15 10/15/16 History Insulin Glargine [Lantus] 40 unit SQ HS 07/14/15 10/15/16 History HYDROcodone/APAP 7.5-325MG [[place] 2 tab PO Q4H PRN 09/22/15 10/15/16 History 7.5-325] Gabapentin [Neurontin] 300 mg PO Q8HR PRN 07/18/16 10/15/16 History Baclofen 10 mg PO HS 10/08/16 10/15/16 History Pravastatin Sodium [Pravachol] 40 mg PO HS 10/08/16 10/15/16 History Magnesium Hydroxide [Milk of 400 mg PO DAILY PRN 10/11/16 10/15/16 History Magnesia] Allergies Allergy/AdvReac Type Severity Reaction Status Date / Time Iodinated Contrast- Oral and Allergy Rash/Hives Verified 10/15/16 11:37 IV Dye iodine Allergy Rash/Hives Verified 10/15/16 11:37 Penicillins Allergy Swelling Verified 10/15/16 11:37 duloxetine [From Cymbalta] AdvReac PRICKLY Verified 10/15/16 11:37 FEELING IN HEAD Surgical Scrub Allergy Unknown Itching, Uncoded 10/13/16 04:12 Red skin Physical Exam Vitals: Vital Signs Temp Pulse Resp BP Pulse Ox 10/16/16 16:00 72 16 10/16/16 14:18 98 F 72 16 132/67 95 10/16/16 08:00 67 16 10/16/16 07:59 96.7 F L 67 16 112/57 97 10/16/16 01:44 98.0 F 73 16 123/59 96 10/15/16 20:13 97.3 F L 82 16 129/75 92 L 10/15/16 20:00 16 10/15/16 19:04 85 127/80 10/15/16 19:03 81 142/72 10/15/16 19:02 100 122/75 Intake and Output 10/16/16 10/16/16 10/16/16 06:59 14:59 22:59 Intake Total 800 300 Output Total 1450 Balance -650 300 Intake: IV 300 0.9% NaCl with KCl 20 Meq 300 /l 1,000 ml @ 75 mls/hr IV .[id number] AALIYAH Rx#: [id number] Intake, IV Titration 600 Amount 0.9% NaCl with KCl 20 Meq 600 /l 1,000 ml @ 75 mls/hr IV .[id number] AALIYAH Rx#: [id number] Oral 200 Output: Gastric Drainage 200 Drainage 50 Left 50 Urine 1200 Other: Voiding Method Indwelling Catheter Indwelling Catheter Weight 99.79 kg Patient Weight 10/17/16 06:59 Weight 99.79 kg PHYSICAL EXAMINATION: Patient is lying in the bed comfortably, no acute distress, awake alert and oriented.. HEENT: Normocephalic. Neck is supple. Pupils reactive. Nostrils clear. Oral cavity is moist. Ears reveal no drainage. Neck reveals no JVD, carotid bruits, or thyromegaly. CHEST EXAMINATION: Trachea is central. Symmetrical expansion. Lung johnson clear to auscultation and percussion. CARDIAC: Normal S1, S2 with no gallops. No murmurs ABDOMEN: Soft. Bowel sounds normal. No organomegaly. No abdominal bruits. Tenderness at the surgical site Extremities reveal no edema. No clubbing or cyanosis Neurologically awake, alert, oriented x3 with well-coordinated movements. Skin: no rash or skin lesions Musculoskeletal: no joint swelling or deformity. Results CBC & Chem 7: 10/16/16 07:08 10/16/16 07:08 Labs: Abnormal Lab Results - Last 24 Hours (Table) 10/15/16 10/15/16 10/16/16 Range/Units 17:05 20:35 06:34 WBC (3.8-10.6) k/uL Neutrophils # (1.3-7.7) k/uL Glucose (74-99) mg/dL POC Glucose (mg/dL) 287 H 238 H 199 H (75-99) mg/dL Hemoglobin A1c (4.2-6.1) % Total Protein (6.3-8.2) g/dL 10/16/16 10/16/16 10/16/16 Range/Units 07:08 07:08 07:08 WBC 13.3 H (3.8-10.6) k/uL Neutrophils # 11.3 H (1.3-7.7) k/uL Glucose 195 H (74-99) mg/dL POC Glucose (mg/dL) (75-99) mg/dL Hemoglobin A1c 7.1 H (4.2-6.1) % Total Protein 5.8 L (6.3-8.2) g/dL 10/16/16 Range/Units 11:22 WBC (3.8-10.6) k/uL Neutrophils # (1.3-7.7) k/uL Glucose (74-99) mg/dL POC Glucose (mg/dL) 105 H (75-99) mg/dL Hemoglobin A1c (4.2-6.1) % Total Protein (6.3-8.2) g/dL Assessment and Plan Plan: #1 status post extensive lysis of adhesions with history of multiple abdominal surgeries #2 hypertension. Controlled we'll continue the home medications. Diabetes mellitus #3. Patient with continued on insulin sliding scale. Start back on Lantus once patient tolerated by mouth diet #4 hyperlipidemia #5 history of carotid artery bypass graft #6 osteoarthritis #7 obstructive sleep apnea on CPAP at home #8 history of prostate cancer status post radiation #8 DVT prophylaxis Plan: Patiently continued on home blood pressure medications and insulin sliding scale. Continue the IV hydration. Continue the home medications. Incentive spirometry. Due to prophylaxis. Bowel regimen. And pain management. Further recommendations based on the clinical course will follow closely Thank you for your consult. Time with Patient: Greater than 30
[2016-10-17] MEDS: HYDROmorphone 1 MG/ML 1 ML SYRINGE IVP PRN ×2 (02:17→05:20)
[2016-10-17] MEDS: METOCLOPRAMIDE 5 MG/ML 2 ML VIAL IVP SCH ×4 (02:17→20:05)
[2016-10-17 07:10] LABS: Glucose,Whole Blood 166 mg/dL (75-99)
[2016-10-17] MEDS ORDERED: NALOXONE 0.4 MG/ML 1 ML VIAL IV PRN (07:21)
[2016-10-17] MEDS: BUPIVACAINE 0.5% EPIDURAL PRN (09:37)
[2016-10-17] MEDS: SODIUM CHLORIDE 0.9% EPIDURAL PRN (09:37)
[2016-10-17] MEDS: HYDROMORPHONE EPIDURAL PRN (09:37)
[2016-10-17] MEDS: 0.9% NACL WITH KCL 20 MEQ/L 1,000 ML IV SCH ×3 (10:38→18:40)
[2016-10-17] MEDS: LACTATED RINGERS 1,000 ML IV SCH (10:39)
[2016-10-17] MEDS: INSULIN LISPRO (humaLOG) 300 UNIT/3 ML VIAL SQ SCH ×3 (10:42→18:32)
[2016-10-17 11:16] LABS: Glucose,Whole Blood 192 mg/dL (75-99)
[2016-10-17] MEDS: HEPARIN SODIUM,PORCINE 5,000 UNIT/ML 1 ML VIAL SQ SCH ×2 (14:33→20:03)
[2016-10-17] MEDS: PANTOPRAZOLE 40 MG/10 ML VIAL IV SCH (14:33)
--- NOTE | 2016-10-17 14:39 | P.PN ---
Subjective Principal diagnosis: Abdominal pain Patient had some abdominal pain yesterday for which the epidural had to be increased. He is not having any nausea or vomiting. He does report passing a little bit of gas yesterday. He has ambulated a little bit. Objective - Vital Signs Vital signs: Vital Signs Temp 97.9 F 10/17/16 14:18 Pulse 75 10/17/16 14:18 Resp 16 10/17/16 14:18 BP 145/67 10/17/16 14:18 Pulse Ox 98 10/17/16 14:18 Intake & Output 10/16/16 10/17/16 10/17/16 18:59 06:59 18:59 Intake Total 300 800 Output Total 215 200 225 Balance 85 600 -225 Weight 99.79 kg Intake: IV 300 800 0.9% NaCl with KCl 20 Meq 300 800 /l 1,000 ml @ 75 mls/hr IV .[id number] [facility] Rx#: [id number] Oral 0 Output: Gastric Drainage 200 200 Drainage 15 25 Left 15 25 Urine 200 Other: Voiding Method Indwelling Catheter - Constitutional General appearance: Present: cooperative, obese - Respiratory Respiratory: bilateral: CTA - Gastrointestinal Gastrointestinal Comment(s): Patient abdomen is tender diffusely without any true signs of peritonitis General gastrointestinal: Present: soft - Labs CBC & Chem 7: 10/16/16 07:08 10/16/16 07:08 Labs: Abnormal Lab Results - Last 24 Hours (Table) 10/16/16 10/16/16 10/17/16 Range/Units 17:19 21:34 07:03 POC Glucose (mg/dL) 132 H 185 H 166 H (75-99) mg/dL 10/17/16 Range/Units 11:06 POC Glucose (mg/dL) 192 H (75-99) mg/dL Assessment and Plan (1) Chronic abdominal pain Status: Acute Plan: patient is s/p exploratory laparotomy. He is passing loose bit of flatus and ambulating. His pain is being managed with a change in epidural medication and increase in rate. His prognosis remains guarded we'll continue to follow closely
[2016-10-17 17:17] LABS: Glucose,Whole Blood 151 mg/dL (75-99)
[2016-10-17] MEDS: BENZOCAINE/MENTHOL LOZENG 1 EACH LOZENGE MUCOUS MEM PRN (18:23)
[2016-10-17] MEDS: ASPIRIN 81 MG PO SCH (18:31)
[2016-10-17] MEDS: AMIODARONE 200 MG TAB PO SCH (18:32)
[2016-10-17] MEDS: amLODIPine 10 MG TAB PO SCH (18:32)
[2016-10-17 20:32] LABS: Glucose,Whole Blood 136 mg/dL (75-99)
--- NOTE | 2016-10-17 20:33 | P.PN ---
Progress Note - Text Postop day 2 status post lysis of adhesions, epidural catheter placed postoperative analgesia, and continuous infusion of Dilaudid 20 g per mL and bupivacaine 0.625%, 12 mL per hour patient continued to have pain, for this reason I changed the infusion to higher concentration of Dilaudid 18 g per mL and bupivacaine 0.075%, infusion rate at 10 ml per hour, patient reported that he has significant improvement in his pain control with the new medication ,, patient had no motor deficit epidural site okay, we will continue the same management
--- NOTE | 2016-10-18 00:52 | P.PN ---
Subjective Principal diagnosis: Chronic abdominal pain due to adhesions Patient is a 76-year-old male with a known history of hypertension, hyperlipidemia, coronary artery bypass graft, hernia repair, prostate cancer status post radiation and other medical problems including chronic abdominal pain with multiple admissions was admitted to the hospital for extensive lysis of adhesions. Currently patient denies any pain. No chest pain no short of breath. Patient does have nausea no vomiting. No dizziness or lightheadedness. on 10/17/16 Patient still complaining of abdominal pain and continues to be on NG tube now. No fever no chills. Saturating well on nasal cannula. Patient was able to ablate in the hallway today. Objective - Vital Signs Vital signs: Vital Signs Temp 97.9 F 10/17/16 14:18 Pulse 75 10/17/16 14:18 Resp 16 10/17/16 14:18 BP 145/67 10/17/16 14:18 Pulse Ox 98 10/17/16 14:18 Intake & Output 10/17/16 10/17/16 10/18/16 06:59 18:59 06:59 Intake Total 800 563 Output Total 200 1725 Balance 600 -1162 Intake: IV 800 563 0.9% NaCl with KCl 20 Meq 800 563 /l 1,000 ml @ 75 mls/hr IV .[id number] [facility] Rx#: [id number] Oral 0 0 Output: Gastric Drainage 200 Drainage 25 Left 25 Urine 200 1500 Other: Voiding Method Indwelling Catheter - Exam PHYSICAL EXAMINATION: Patient is lying in the bed comfortably, no acute distress, awake alert and oriented.. HEENT: Normocephalic. Neck is supple. Pupils reactive. Nostrils clear. Oral cavity is moist. Ears reveal no drainage. Neck reveals no JVD, carotid bruits, or thyromegaly. CHEST EXAMINATION: Trachea is central. Symmetrical expansion. Lung johnson clear to auscultation and percussion. CARDIAC: Normal S1, S2 with no gallops. No murmurs ABDOMEN: Soft. Bowel sounds normal. No organomegaly. No abdominal bruits. Tenderness at the surgical site Extremities reveal no edema. No clubbing or cyanosis Neurologically awake, alert, oriented x3 with well-coordinated movements. Skin: no rash or skin lesions Musculoskeletal: no joint swelling or deformity. - Labs CBC & Chem 7: 10/16/16 07:08 10/16/16 07:08 Labs: Abnormal Lab Results - Last 24 Hours (Table) 10/16/16 10/17/16 10/17/16 Range/Units 21:34 07:03 11:06 POC Glucose (mg/dL) 185 H 166 H 192 H (75-99) mg/dL 10/17/16 10/17/16 Range/Units 17:10 20:10 POC Glucose (mg/dL) 151 H 136 H (75-99) mg/dL Assessment and Plan Plan: #1 status post extensive lysis of adhesions with history of multiple abdominal surgeries #2 hypertension. Controlled we'll continue the home medications. Diabetes mellitus #3. Patient with continued on insulin sliding scale. Start back on Lantus once patient tolerated by mouth diet #4 hyperlipidemia #5 history of carotid artery bypass graft #6 osteoarthritis #7 obstructive sleep apnea on CPAP at home #8 history of prostate cancer status post radiation #8 DVT prophylaxis Plan: Patiently continued on home blood pressure medications and insulin sliding scale. Continue the IV hydration. Continue the home medications. Incentive spirometry. DVT prophylaxis. Bowel regimen. And pain management. Further recommendations based on the clinical course will follow closely Thank you for your consult.
[2016-10-18] MEDS: BUPIVACAINE 0.5% EPIDURAL PRN ×2 (01:47→22:41)
[2016-10-18] MEDS: SODIUM CHLORIDE 0.9% EPIDURAL PRN ×2 (01:47→22:41)
[2016-10-18] MEDS: HYDROMORPHONE EPIDURAL PRN ×2 (01:47→22:41)
[2016-10-18] MEDS: BENZOCAINE/MENTHOL LOZENG 1 EACH LOZENGE MUCOUS MEM PRN ×2 (01:51→11:39)
[2016-10-18] MEDS: METOCLOPRAMIDE 5 MG/ML 2 ML VIAL IVP SCH ×4 (03:59→22:32)
[2016-10-18 06:52] LABS: Glucose,Whole Blood 164 mg/dL (75-99)
[2016-10-18 07:16] LABS: Basophils % (A) 0 %; CH 30.8; CHCM 33.4; Eosinophils # (A) 0.1 k/uL (0-0.7); Eosinophils % (A) 1 %; HDW 2.54; HGB 14.4 gm/dL (13.0-17.5); Luc # (Auto) 0.35; Luc % (Auto) 4; Lymphocytes % (A) 11 %; MCH 31.1 pg (25.0-35.0); MCHC 33.6 g/dL (31.0-37.0); MCV 92.6 fL (80.0-100.0); Mean Platelet Volume 8.4; Monocytes # (A) 0.7 k/uL (0-1.0); Monocytes % (A) 7 %; Neutrophils # (A) 7.5 k/uL (1.3-7.7); Neutrophils % (A) 77 %; RBC 4.64 m/uL (4.30-5.90); RDW 13.8 % (11.5-15.5); WBC 9.7 k/uL (3.8-10.6); WBC (Perox) 9.34
[2016-10-18 07:40] LABS: Anion Gap 15 mmol/L; Blood Urea Nitrogen 10 mg/dL (9-20); Calcium 8.8 mg/dL (8.4-10.2); Carbon Dioxide 23 mmol/L (22-30); Chloride 103 mmol/L (98-107); Glucose 172 mg/dL (74-99); Non-African American GFR(MDRD) >60 (>60 ml/min/1.73 sqM); Potassium 4.1 mmol/L (3.5-5.1); Sodium 141 mmol/L (137-145)
[2016-10-18] MEDS: INSULIN LISPRO (humaLOG) 300 UNIT/3 ML VIAL SQ SCH ×3 (08:18→18:51)
[2016-10-18] MEDS: HEPARIN SODIUM,PORCINE 5,000 UNIT/ML 1 ML VIAL SQ SCH ×2 (08:21→22:35)
[2016-10-18] MEDS: PANTOPRAZOLE 40 MG/10 ML VIAL IV SCH (08:22)
[2016-10-18] MEDS: 0.9% NACL WITH KCL 20 MEQ/L 1,000 ML IV SCH ×2 (08:23→22:37)
--- NOTE | 2016-10-18 08:55 | P.PN ---
<Jeanne Wallacerené Lemon - Last Filed: 10/18/16 08:44> Subjective 76-year-old male being seen on rounds this morning. Nursing is ambulating the patient in the hallway this morning. Patient states the pain medication effective for pain control. Patient denies any dizziness lightheadedness or shortness of breath or chest pain. Patient states he is not passing any gas rectally. Nasal gastric tube in place. Brownish secretions noted in the canister chief complaint this morning "lower back discomfort". Reports no nausea no vomiting no stool adequate urine output with a indwelling Dubose catheter Patient is postop October 15 extensive laparoscopic lysis of adhesions over 3 hours, peritoneal lavage 3 L, placement of a JIGAR drain left lower quadrant for chronic abdominal pain. Patient does have a history of multiple abdominal surgeries with peritoneal adhesions. Objective - Vital Signs Vital signs: Vital Signs Temp 98.2 F 10/18/16 07:20 Pulse 94 10/18/16 07:20 Resp 16 10/18/16 02:31 BP 163/77 10/18/16 07:20 Pulse Ox 92 L 10/18/16 07:20 Intake & Output 10/17/16 10/18/16 10/18/16 18:59 06:59 18:59 Intake Total 563 553.667 Output Total 1725 200 Balance -1162 353.667 Intake: IV 563 0.9% NaCl with KCl 20 Meq 563 /l 1,000 ml @ 75 mls/hr IV .[id number] [facility] Rx#: [id number] Intake, IV Titration 323.667 Amount 0.9% NaCl with KCl 20 Meq 162 /l 1,000 ml @ 75 mls/hr IV .[id number] [facility] Rx#: [id number] Bupivacaine (Pf) 0.5% 37. 161.667 5 ml Hydromorphone (Pf) 7 .5 mg In Sodium Chloride 0.9% 212 ml @ Per Protocol EPIDURAL .Q0M [facility] Rx#:[id number] Oral 0 50 Other 180 Output: Gastric Drainage 200 Drainage 25 Left 25 Urine 1500 200 Other: Voiding Method Indwelling Catheter Indwelling Catheter - Exam GENERAL APPEARANCE: 76-year-old male patient is alert, oriented,x 3 in no acute distress. VITAL SIGNS: Reviewed HEENT: Head is normocephalic and atraumatic. Pupils are equal and reactive. The nares are patent. Oropharynx is clear without lesions. NECK: Supple without lymphadenopathy. Traches midline. HEART: S1, S2. Regular rate and rhythm. Denying chest pain no murmur LUNGS: No crackles or wheezes are heard. Nasal cannula 2 L keeping a sat 92% no cough noted no shortness of breath ABDOMEN: Soft. Slight surgical tenderness JIGAR drain in place left lower quadrant bloody drainage noted in the fall. Surgical dressings dry. Not distended indwelling Dubose catheter in place adequate urine output. NG tube to suction. A few hypoactive bowel tones noted. States no stool states passing gas rectally EXTREMITIES: Normal skin color and turgor. No cyanosis, rash, ulceration, clubbing or edema. Radial pedal pulses are 2/4 bilaterally. NEUROLOGICAL: No focal deficits. Strength and sensation are grossly intact. - Labs CBC & Chem 7: 10/18/16 06:42 10/18/16 06:42 Labs: Abnormal Lab Results - Last 24 Hours (Table) 10/17/16 10/17/16 10/17/16 Range/Units 11:06 17:10 20:10 Glucose (74-99) mg/dL POC Glucose (mg/dL) 192 H 151 H 136 H (75-99) mg/dL 10/18/16 10/18/16 Range/Units 06:42 06:50 Glucose 172 H (74-99) mg/dL POC Glucose (mg/dL) 164 H (75-99) mg/dL Assessment and Plan Plan: Impression Present on admission Progressive abdominal pain right lower quadrant History of multiple ventral hernia repairs Chronic pain syndrome Status post 18 extensive laparoscopic lysis of adhesions over 3 hours, peritoneal lavage 3 L, placement of a JIGAR drain left lower quadrant Operative findings Severe interloop and peritoneal adhesions involving the entire abdomen of the small bowel to abdominal wall including greater omentum to the abdominal wall. 2. Thick cicatrix along the lower abdomen over 4 cm from previous multiple abdominal mesh repair. 3. Severe adhesion involving the right lower quadrant of small bowel, ileum to the right lower pelvis consistent with the patient's area of pain. 4. Entire lysis of adhesions performed over 3 hours. 5. Abdominal peritoneal lavage 3 L performed. 6. Nasogastric tube placed for manipulation of the small bowel. Known coronary artery disease prior coronary artery bypass grafting History of prostate cancer status post radiation Hyperlipidemia History of obstructive sleep apnea with CPAP therapy Plan Epidural for pain control per anesthesia defer to Continue postop surgical care Increase activity as tolerated Encourage use of the incentive spirometer Continue the nasal gastric tube monitor the response Pain control DVT and GI prophylaxis IV fluid at 75 an hour monitor Monitor electrolytes Resume home meds as appropriate The above impression and plan of care have been discussed and directed by signing physician. Brooklynn Wallace nurse practitioner acting as scribe for signing physician. <Loni Christensen N - Last Filed: 10/20/16 17:29> Objective - Vital Signs Vital signs: Vital Signs Temp 97.2 F L 10/20/16 14:45 Pulse 89 10/20/16 14:45 Resp 16 10/20/16 14:45 BP 150/70 10/20/16 14:45 Pulse Ox 96 10/20/16 14:45 Intake & Output 10/19/16 10/20/16 10/20/16 18:59 06:59 18:59 Intake Total 600 1800 Output Total 650 800 10 Balance -50 1000 -10 Intake: IV 600 600 0.9% NaCl with KCl 20 Meq 600 600 /l 1,000 ml @ 75 mls/hr IV .[id number] [facility] Rx#: [id number] Oral 1200 Output: Drainage 10 Left 10 Urine 650 800 Uretheral (Dubose) 450 Other: Voiding Method Urinal Toilet # Voids 3 2 - Labs CBC & Chem 7: 10/20/16 07:04 10/20/16 07:04 Labs: Abnormal Lab Results - Last 24 Hours (Table) 10/19/16 10/20/16 10/20/16 Range/Units 20:34 06:51 07:04 BUN 8 L (9-20) mg/dL Creatinine 0.60 L (0.66-1.25) mg/dL Glucose 143 H (74-99) mg/dL POC Glucose (mg/dL) 153 H 136 H (75-99) mg/dL Magnesium 1.5 L (1.6-2.3) mg/dL 10/20/16 10/20/16 10/20/16 Range/Units 11:13 11:44 17:08 BUN (9-20) mg/dL Creatinine (0.66-1.25) mg/dL Glucose (74-99) mg/dL POC Glucose (mg/dL) 184 H 196 H 162 H (75-99) mg/dL Magnesium (1.6-2.3) mg/dL Assessment and Plan Plan: Patient seen and evaluated alongside [facility]. Patient has history of baseline intermittent dementia and forgetfulness. Recommend discontinue NG tube including discontinuing epidural. Likely start diet. Anticipated discharge in 24-48 hours.
--- NOTE | 2016-10-18 11:01 | P.PN ---
Progress Note - Text Postoperative day #3 status post lysis of abdominal adhesions, epidural catheter for postoperative analgesia patient currently on bupivacaine 0.075% and Dilaudid 30 mcg/ml , infusion rate at 12 mL per hour patient reports that his pain is under control, VAS 4/10 , epidural site though. He has no motor deficit. 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
[2016-10-18 11:46] LABS: Glucose,Whole Blood 164 mg/dL (75-99)
[2016-10-18] MEDS ORDERED: HYDROmorphone 1 MG/ML 1 ML SYRINGE IVP PRN (11:49)
[2016-10-18] MEDS ORDERED: BISACODYL 10 MG SUPP RECTAL STA (13:42)
[2016-10-18] MEDS: HYDROmorphone 1 MG/ML 1 ML SYRINGE IVP PRN ×3 (15:13→22:39)
[2016-10-18 16:53] LABS: Glucose,Whole Blood 162 mg/dL (75-99)
[2016-10-18] MEDS: AMIODARONE 200 MG TAB PO SCH (18:51)
[2016-10-18] MEDS: ASPIRIN 81 MG PO SCH (18:51)
[2016-10-18] MEDS: amLODIPine 10 MG TAB PO SCH (18:52)
[2016-10-18 20:34] LABS: Glucose,Whole Blood 184 mg/dL (75-99)
[2016-10-18] MEDS: INSULIN GLARGINE 100 UNIT/ML 10 ML VIAL SQ SCH (22:31)
[2016-10-18] MEDS ORDERED: HYDROmorphone PCA 5 MG/25 ML SYRINGE IV PRN (23:03)
[2016-10-19] MEDS: HYDROmorphone 1 MG/ML 1 ML SYRINGE IVP PRN ×4 (05:42→17:13)
[2016-10-19] MEDS: METOCLOPRAMIDE 5 MG/ML 2 ML VIAL IVP SCH ×4 (05:43→21:26)
[2016-10-19 07:11] LABS: Glucose,Whole Blood 139 mg/dL (75-99)
--- NOTE | 2016-10-19 08:34 | P.PN ---
Subjective 76-year-old being seen on rounds this morning. Await cooperative oriented 3 Patient states no BM no passing gas. Anesthesiologist indicated will DC the epidural this morning. Patient reports has been no nausea no vomiting. Indwelling Dubose catheter has been removed. Currently no labs. a scant amount of drainage out of the JIGAR drain .Patient is postop October 15 extensive laparoscopic lysis of adhesions over 3 hours, peritoneal lavage 3 L, placement of a JIGAR drain left lower quadrant for chronic abdominal pain. Patient does have a history of multiple abdominal surgeries with peritoneal adhesions. Objective - Vital Signs Vital signs: Vital Signs Temp 98.6 F 10/18/16 23:00 Pulse 86 10/18/16 23:00 Resp 16 10/19/16 04:00 BP 155/80 10/18/16 23:00 Pulse Ox 95 10/18/16 23:13 Intake & Output 10/18/16 10/19/16 10/19/16 18:59 06:59 18:59 Intake Total 600 1109 Output Total 800 10 Balance -200 1099 Intake: IV 600 900 0.9% NaCl with KCl 20 Meq 600 900 /l 1,000 ml @ 75 mls/hr IV .[id number] [facility] Rx#: [id number] Intake, IV Titration 209 Amount Bupivacaine (Pf) 0.5% 37. 209 5 ml Hydromorphone (Pf) 7 .5 mg In Sodium Chloride 0.9% 212 ml @ Per Protocol EPIDURAL .Q0M [facility] Rx#:[id number] Output: Gastric Drainage 150 Drainage 10 Left 10 Urine 650 Other: Voiding Method Indwelling Catheter Indwelling Catheter - Exam Physical exam 76-year-old male being seen resting in bed. Patient reports of nausea vomiting. Patient's tolerating ice chips with popsicles Lungs essentially clear with adequate air movement sats are 93% Heart S1-S2 audible regular Abdomen abdominal binder in place. JIGAR drain in place scant amt of drainage noted. Few hypoactive bowel tones. No reports the nausea vomiting. Slight surgical tenderness. Dressings to the surgical site dry Extremities Venodyne's on to the bilateral lower extremities no edema noted - Labs CBC & Chem 7: 10/18/16 06:42 10/18/16 06:42 Labs: Abnormal Lab Results - Last 24 Hours (Table) 10/18/16 10/18/16 10/18/16 Range/Units 11:43 16:51 20:20 POC Glucose (mg/dL) 164 H 162 H 184 H (75-99) mg/dL 10/19/16 Range/Units 07:07 POC Glucose (mg/dL) 139 H (75-99) mg/dL Assessment and Plan Plan: Impression Present on admission Progressive abdominal pain right lower quadrant History of multiple ventral hernia repairs Chronic pain syndrome Status post 18 extensive laparoscopic lysis of adhesions over 3 hours, peritoneal lavage 3 L, placement of a JIGAR drain left lower quadrant Operative findings Severe interloop and peritoneal adhesions involving the entire abdomen of the small bowel to abdominal wall including greater omentum to the abdominal wall. 2. Thick cicatrix along the lower abdomen over 4 cm from previous multiple abdominal mesh repair. 3. Severe adhesion involving the right lower quadrant of small bowel, ileum to the right lower pelvis consistent with the patient's area of pain. 4. Entire lysis of adhesions performed over 3 hours. 5. Abdominal peritoneal lavage 3 L performed. 6. Nasogastric tube placed for manipulation of the small bowel. Known coronary artery disease prior coronary artery bypass grafting History of prostate cancer status post radiation Hyperlipidemia History of obstructive sleep apnea with CPAP therapy Plan Epidural for pain control per anesthesia defer to the timing of the removal Continue postop surgical care Increase activity as tolerated Encourage use of the incentive spirometer Continue ice chips popsicles advanced as tolerated Pain control DVT and GI prophylaxis IV fluid at 75 an hour monitor Monitor electrolytes Resume home meds as appropriate The above impression and plan of care have been discussed and directed by signing physician. Brooklynn Wallace nurse practitioner acting as scribe for signing physician.
[2016-10-19] MEDS: PANTOPRAZOLE 40 MG/10 ML VIAL IV SCH (09:21)
[2016-10-19] MEDS: INSULIN LISPRO (humaLOG) 300 UNIT/3 ML VIAL SQ SCH ×3 (09:25→17:16)
--- NOTE | 2016-10-19 09:34 | P.PN ---
Progress Note - Text 0930 Anesthesia POD 4. Status Post Her scopic lysis of adhesions and placement of JIGAR drain under general endotracheal anesthesia with an epidrual catheter placed at L3 4 for post surgical pain releif. Catheter site looks OK. Plan to remove catheter today and institute alternative analgesia.
[2016-10-19] MEDS ORDERED: TAMSULOSIN 0.4 MG CAP.ER.24H PO STA (10:09)
--- NOTE | 2016-10-19 11:39 | PN ---
DATE OF SERVICE: 10/18/16 PRESENTING COMPLAINT: Abdominal surgery. INTERVAL HISTORY: The patient is status post lysis of adhesions. NG tube remains in place. The patient has had a prior history of multiple ventral hernia repair. JIGAR drain in place. at the bedside. Abdominal pain is present. No chest pain. Tired. Review of systems done for constitutional, cardiovascular, GI, pulmonary, relevant findings as above. Additionally, epidural is in place. Current medications include epidural and IV fluids. On examination, temperature 98.6, pulse 78. Respirations 16. Blood pressure 127/14. Pulse ox 97% on 2 L. General appearance well built, lying in bed, somewhat uncomfortable. Eyes: Pupils equal. Conjunctivae normal. HEENT: NG tube in place. Neck: JVD not raised. Mass not palpable. Respiratory effort normal. Lungs decreased breath sounds. Cardiovascular: First and second sounds normal. No edema. Abdomen tender. JIGAR drain in place. Bowel sounds sluggish. Liver and spleen not palpable. PSYCH: Alert and oriented times three. Mood and affect anxious appearing. Investigations: White count 9.7, hemoglobin 14.4. Potassium 4.1. Accu-Cheks are 172, 164. ASSESSMENT: 1. Status post lysis of adhesions in a patient with multiple ventral hernia repair. 2. Coronary artery disease with prior history of coronary bypass. 3. Diabetes mellitus, type 2, chronically on insulin. 4. Hyperlipidemia. 5. Essential hypertension. 6. Primary osteoarthritis of multiple joints. 7. Obstructive sleep apnea, uses CPAP machine. 8. Obesity, BMI 34.5. PLAN: Continue current medication and treatment plan. The patient told to sit up if possible. IV fluids are to continue. Care was discussed with the at the bedside. The patient with ice chips. Thank you Dr. Christensen. Will follow. [facility] CENTERManny
[2016-10-19] MEDS: HYDROcodone/APAP 7.5-325MG 1 EACH TAB PO PRN ×3 (12:02→21:25)
[2016-10-19 12:27] LABS: Glucose,Whole Blood 155 mg/dL (75-99)
[2016-10-19] MEDS: HEPARIN SODIUM,PORCINE 5,000 UNIT/ML 1 ML VIAL SQ SCH ×2 (14:00→21:24)
[2016-10-19] MEDS ORDERED: BISACODYL 10 MG SUPP RECTAL STA ×2 (16:12→22:30)
[2016-10-19 16:42] LABS: Glucose,Whole Blood 144 mg/dL (75-99)
[2016-10-19] MEDS: ASPIRIN 81 MG PO SCH (17:13)
[2016-10-19] MEDS: amLODIPine 10 MG TAB PO SCH (17:13)
[2016-10-19] MEDS: AMIODARONE 200 MG TAB PO SCH (17:13)
[2016-10-19] MEDS: 0.9% NACL WITH KCL 20 MEQ/L 1,000 ML IV SCH (17:15)
--- NOTE | 2016-10-19 20:42 | P.PN ---
<Yenny Antonio - Last Filed: 10/19/16 20:33> Progress Note - Text DATE OF SERVICE: 10/19/2016 PRESENTING COMPLAINT: Abdominal surgery INTERVAL HISTORY: 76-year-old patient who is status post lysis of adhesion. 10/19/2016: NG tube removed, patient's diet has been advanced to clear liquids, patient is tolerating this. JIGAR drain in place, no BM however is passing gas. Continues to have abdominal pain related to the surgery. Tired appearing. REVIEW OF SYSTEMS: Done for constitutional ,cardiovascular, GI, pulmonary with relevant findings as above. CURRENT MEDICATIONS [place], amiodarone, Norvasc, aspirin, heparin, Dilaudid, Lantus, Reglan, Protonix. PHYSICAL EXAM VITAL SIGNS: Temperature 97.9, pulse 84, respiratory rate 18, blood pressure 138/58, oxygen saturation 94% on room air. GENERAL APPEARANCE: Lying in bed, tired appearing. EYES: Pupils equal. Conjunctiva normal. NECK: JVD not raised. Mass not palpable. RESPIRATORY: Respiratory effort normal. Lungs diminished to auscultation. CARDIOVASCULAR: First and second sounds normal. No edema. ABDOMEN: Soft. Liver and spleen not palpable. Generalized abdominal tenderness , distant bowel sounds. No mass palpable. JIGAR drain located in the right lower quadrant draining serosanguineous drainage. PSYCHIATRY: Alert and oriented x3. Mood and affect anxious appearing. NEUROLOGICAL: Cranial nerves grossly intact. No facial asymmetry. Power and sensation grossly intact INVESTIGATIONS: ASSESSMENT: -Status post extensive lysis of adhesions a patient with multiple ventral hernia repairs -Coronary artery disease with prior history of coronary bypass. -Diabetes mellitus type 2 chronically on insulin. -Hyperlipidemia. -Essential hypertension. -Primary osteoporosis multiple joints. -Obstructive sleep apnea uses CPAP machine. -Obesity BMI 34.5 PLAN: Pain control, increase activity, advance diet as tolerated, monitor daily labs. Discussed plan of care with patient at the bedside he is in agreement. We'll continue to monitor closely. DEVELOPMENT MGR statement: Patient was seen and examined by nurse practitioner Yenny Antonio and all elements of the case discussed with attending Dr. Yañez <Amos Yañez - Last Filed: 10/19/16 23:35> Progress Note - Text Date of service 10/19/2016 Attending note: Patient was seen and examined by me. I discussed with my nurse practitioner Miss Antonio. Feels better today. Had passed flatus. Diet started by surgery. On examination: Abdomen-decreased tenderness, bowel sound present Assessment and plan: Status post abdominal surgery. Doing better diet to be advanced as per surgery. care was discussed with the patient
[2016-10-19 21:00] LABS: Glucose,Whole Blood 153 mg/dL (75-99)
[2016-10-19] MEDS: INSULIN GLARGINE 100 UNIT/ML 10 ML VIAL SQ SCH (21:25)
[2016-10-20] MEDS: 0.9% NACL WITH KCL 20 MEQ/L 1,000 ML IV SCH (02:00)
[2016-10-20] MEDS: METOCLOPRAMIDE 5 MG/ML 2 ML VIAL IVP SCH ×3 (03:17→17:24)
[2016-10-20] MEDS: HYDROcodone/APAP 7.5-325MG 1 EACH TAB PO PRN ×3 (03:17→11:19)
[2016-10-20 05:54] VITALS: RESP 16
[2016-10-20 07:11] LABS: Glucose,Whole Blood 136 mg/dL (75-99)
[2016-10-20] MEDS: INSULIN LISPRO (humaLOG) 300 UNIT/3 ML VIAL SQ SCH ×2 (07:27→12:56)
[2016-10-20] MEDS: HEPARIN SODIUM,PORCINE 5,000 UNIT/ML 1 ML VIAL SQ SCH (07:27)
[2016-10-20] MEDS: PANTOPRAZOLE 40 MG/10 ML VIAL IV SCH (07:27)
[2016-10-20 08:00] LABS: Anion Gap 13 mmol/L; Blood Urea Nitrogen 8 mg/dL (9-20); Carbon Dioxide 25 mmol/L (22-30); Chloride 103 mmol/L (98-107); Glucose 143 mg/dL (74-99); Magnesium 1.5 mg/dL (1.6-2.3); Non-African American GFR(MDRD) >60 (>60 ml/min/1.73 sqM); Phosphorous 2.9 mg/dL (2.5-4.5); Potassium 3.5 mmol/L (3.5-5.1); Sodium 141 mmol/L (137-145)
[2016-10-20 08:14] LABS: Basophils # (A) 0.1 k/uL (0-0.2); Basophils % (A) 1 %; CH 31.1; CHCM 34.5; Eosinophils # (A) 0.4 k/uL (0-0.7); Eosinophils % (A) 6 %; HDW 2.64; HGB 14.1 gm/dL (13.0-17.5); Luc # (Auto) 0.24; Luc % (Auto) 3; Lymphocytes # (A) 1.3 k/uL (1.0-4.8); Lymphocytes % (A) 18 %; MCH 31.2 pg (25.0-35.0); MCHC 34.5 g/dL (31.0-37.0); MCV 90.3 fL (80.0-100.0); Mean Platelet Volume 8.8; Monocytes # (A) 0.5 k/uL (0-1.0); Monocytes % (A) 6 %; Neutrophils # (A) 4.9 k/uL (1.3-7.7); Neutrophils % (A) 66 %; RBC 4.54 m/uL (4.30-5.90); WBC 7.4 k/uL (3.8-10.6); WBC (Perox) 7.41
[2016-10-20] MEDS: MAGNESIUM SULFATE-D5W PMX 1 GM in DEXTROSE/WATER 1 100ML.BAG IVPB SCH ×4 (09:11→14:29)
[2016-10-20] MEDS ORDERED: BISACODYL 10 MG SUPP RECTAL STA (10:41)
[2016-10-20 11:23] LABS: Glucose,Whole Blood 184 mg/dL (75-99)
[2016-10-20 11:52] LABS: Glucose,Whole Blood 196 mg/dL (75-99)
[2016-10-20] MEDS ORDERED: GABAPENTIN 300 MG CAP PO PRN (11:55)
[2016-10-20] MEDS ORDERED: MAGNESIUM HYDROXIDE 2,400 MG/10 ML CUP PO PRN (14:07)
[2016-10-20] MEDS ORDERED: HYDROcodone/APAP 7.5-325MG 1 EACH TAB PO PRN (14:07)
--- NOTE | 2016-10-20 14:14 | P.DS ---
<Brooklynn Wallace - Last Filed: 10/20/16 14:01> Providers Date of admission: 10/15/16 08:30 Expected date of discharge: 10/20/16 Attending physician: Loni Christensen Consults: 10/15/16 17:34 Consult Physician Routine Consulting Provider: Amos Yañez Consult Reason/Comments: Medical Management Do you want consulting provider notified?: Yes Primary care physician: [facility] Course: 76-year-old male who presented with progressive abdominal pain particularly in the right lower quadrant. Patient has a history of multiple ventral hernia repairs with scar tissue removed. Over the last several years patient has been to the emergency room multiple times for abdominal pain. Now the patient's pain has become more symptomatic more severe. Patient presented this admission for further evaluation and management. 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 The patient elected to undergo on October 15 extensive laparoscopic lysis of adhesions over 3 hours, peritoneal lavage 3 L , placement of a JIGAR drain left lower quadrant for chronic abdominal pain. Patient does have a history of multiple abdominal surgeries with peritoneal adhesions. Impression discharge diagnosis Chronic right lower quadrant pain now more progressive symptomatic Chronic pain syndrome opiate dependency Known coronary artery disease with prior coronary artery bypass grafting History of multiple ventral hernia repairs Status post 18 extensive laparoscopic lysis of adhesions over 3 hours, peritoneal lavage 3 L, placement of a JIGAR drain left lower quadrant Operative findings Severe interloop and peritoneal adhesions involving the entire abdomen of the small bowel to abdominal wall including greater omentum to the abdominal wall. Thick cicatrix along the lower abdomen over 4 cm from previous multiple abdominal mesh repair. . Severe adhesion involving the right lower quadrant of small bowel, ileum to the right lower pelvis consistent with the patient's area of pain. Entire lysis of adhesions performed over 3 hours. Abdominal peritoneal lavage 3 L performed. Known coronary artery disease prior coronary artery bypass grafting History of prostate cancer status post radiation Hyperlipidemia History of obstructive sleep apnea with CPAP therapy Electrolyte abnormality hypo-magnesium corrected The above impression and plan of care have been discussed and directed by signing physician. Brooklynn Wallace nurse practitioner acting as scribe for signing physician. Plan - Discharge Summary New Discharge Prescriptions: Continue INSULIN LISPRO (humaLOG) [humaLOG (formulary)] See Protocol SQ ACHS PRN PRN Reason: Blood Sugar - High amLODIPine [Norvasc] 10 mg PO W/SUPPER Aspirin [Adult Low Dose Aspirin EC] 81 mg PO DIRECTED Amiodarone [Cordarone] 200 mg PO W/SUPPER Insulin Glargine [Lantus] 40 unit SQ HS Cholecalciferol [Vitamin D3] 1,000 unit PO DIRECTED HYDROcodone/APAP 7.5-325MG [[place] 7.5-325] 2 tab PO Q4H PRN PRN Reason: Pain Gabapentin [Neurontin] 300 mg PO Q8HR PRN PRN Reason: NERVE PAIN Baclofen 10 mg PO HS Pravastatin Sodium [Pravachol] 40 mg PO HS Magnesium Hydroxide [Milk of Magnesia] 400 mg PO DAILY PRN PRN Reason: Constipation Discharge Medication List INSULIN LISPRO (humaLOG) [humaLOG (formulary)] See Protocol SQ ACHS PRN [History] amLODIPine [Norvasc] 10 mg PO W/SUPPER 11/07/13 [History] Amiodarone [Cordarone] 200 mg PO W/SUPPER 03/23/15 [History] Aspirin [Adult Low Dose Aspirin EC] 81 mg PO DIRECTED 03/23/15 [History] Cholecalciferol [Vitamin D3] 1,000 unit PO DIRECTED 07/14/15 [History] Insulin Glargine [Lantus] 40 unit SQ HS 07/14/15 [History] HYDROcodone/APAP 7.5-325MG [[place] 7.5-325] 2 tab PO Q4H PRN 09/22/15 [History] Gabapentin [Neurontin] 300 mg PO Q8HR PRN 07/18/16 [History] Baclofen 10 mg PO HS 10/08/16 [History] Pravastatin Sodium [Pravachol] 40 mg PO HS 10/08/16 [History] Magnesium Hydroxide [Milk of Magnesia] 400 mg PO DAILY PRN 10/11/16 [History] Follow up Appointment(s)/Referral(s): Dean Evangelista MD [Primary Care Provider] - 10/27/16 10:45 am Loni Christensen MD [STAFF PHYSICIAN] - 11/09/16 10:00 am Patient Instructions/Handouts: Lysis of Abdominal Adhesions (DC), Abdominal Binder (DC) Activity/Diet/Wound Care/Special Instructions: No lifting over 4 lbs in 4 weeks. NO bath tub soak. June shower. Remove dressing tuesday. Wear abdominal binder for comfort. Discharge Disposition: HOME WITH HOME HEALTH SERVICES <Loni Christensen - Last Filed: 10/20/16 17:33> Hospital Course: Patient seen and evaluated. I personally discontinued his JIGAR drain along the left lower quadrant. His dressing along the midline was changed as well as no signs of infection or cellulitis. Family was reviewed his discharge instructions including pain management with his primary care provider. Follow-up in the office in 2-3 weeks however with home healthcare. Recommend abdominal binder.
[2016-10-20 14:46] VITALS: BP 150/70; PULSE 89; TEMP 97.2
[2016-10-20 17:21] LABS: Glucose,Whole Blood 162 mg/dL (75-99)
[2016-10-20] MEDS ORDERED: CHOLECALCIFEROL 1,000 UNIT TAB PO SCH (17:30)
--- NOTE | 2016-10-20 19:13 | P.PN ---
<Yenny Antonio - Last Filed: 10/20/16 19:04> Progress Note - Text DATE OF SERVICE: 10/20/2016 PRESENTING COMPLAINT: Abdominal surgery INTERVAL HISTORY: 76-year-old patient who is status post lysis of adhesion. 10/20/2016: Patient seen in follow-up no acute events overnight. Pain reasonably well controlled, JIGAR drain in place, passing gas however no BM. Tired appearing ambulatory to and from the bathroom. Tolerating a soft diet able to eat about 30-50%. 10/19/2016: NG tube removed, patient's diet has been advanced to clear liquids, patient is tolerating this. JIGAR drain in place, no BM however is passing gas. Continues to have abdominal pain related to the surgery. Tired appearing. REVIEW OF SYSTEMS: Done for constitutional ,cardiovascular, GI, pulmonary with relevant findings as above. CURRENT MEDICATIONS [place], amiodarone, Norvasc, aspirin, heparin, Dilaudid, Lantus, Reglan, Protonix. PHYSICAL EXAM VITAL SIGNS: Temperature 99.0, pulse 72, respiratory rate 16, blood pressure 156/91, oxygen saturation 95% on room air. GENERAL APPEARANCE: Lying in bed, tired appearing. EYES: Pupils equal. Conjunctiva normal. NECK: JVD not raised. Mass not palpable. RESPIRATORY: Respiratory effort normal. Lungs diminished to auscultation. CARDIOVASCULAR: First and second sounds normal. No edema. ABDOMEN: Soft. Liver and spleen not palpable. Generalized abdominal tenderness , distant bowel sounds. No mass palpable. JIGAR drain located in the right lower quadrant draining serosanguineous drainage. PSYCHIATRY: Alert and oriented x3. Mood and affect anxious appearing. NEUROLOGICAL: Cranial nerves grossly intact. No facial asymmetry. Power and sensation grossly intact INVESTIGATIONS: CBC unremarkable, BUN 8 creatinine 0.60. Magnesium 1.5 ASSESSMENT: -Status post extensive lysis of adhesions a patient with multiple ventral hernia repairs -Coronary artery disease with prior history of coronary bypass. -Diabetes mellitus type 2 chronically on insulin. -Hyperlipidemia. -Essential hypertension. -Primary osteoporosis multiple joints. -Obstructive sleep apnea uses CPAP machine. -Hypomagnesemia -Obesity BMI 34.5 PLAN: JIGAR drain to be removed later today by surgery, Magnesium supplemented, labs will be redrawn as outpatient. patient being discharged home to the care of his . [employer] statement: Patient was seen and examined by nurse practitioner Yenny Antonio and all elements of the case discussed with attending Dr. Yañez <Amos Yañez - Last Filed: 10/20/16 21:51> Progress Note - Text Attending note. Date of service-10/20/2016 This patient was seen and examined by me . I reviewed the note of my nurse practitioner, Ms. Antonio. Discussed with her, additional findings as below. Feeling better. Passed flatus. Been out of bed. On examination: Abdomen-bowel sounds present, tenderness, no guarding or rigidity, soft Investigations: White count 7.4 Assessment and plan: Status post abdominal surgery. Did tolerate clear liquids. Discharge to be decided as per surgery. Medically patient is improving Thank you
[2016-10-20] MEDS ORDERED: INSULIN GLARGINE 100 UNIT/ML 10 ML VIAL SQ SCH (21:00)
[2016-10-20] MEDS ORDERED: PRAVASTATIN SODIUM 40 MG TAB PO SCH (21:00)
[2016-10-20] MEDS ORDERED: BACLOFEN 10 MG TAB PO SCH (21:00)
[2016-10-21] MEDS ORDERED: PANTOPRAZOLE 40 MG TABLET PO SCH (07:30)
--- NOTE | 2016-11-14 18:50 | P.OP ---
Date of Procedure: 10/15/16 Description of Procedure: SURGEON: AMMY GUARDADO MD EDGE SANDER: NONE. PREOPERATIVE DIAGNOSIS: 1. Personal history of multiple abdominal surgeries. 2. Severe right lower quadrant abdominal pain. 3. Chronic pain syndrome. 4. Chronic abdominal pain. 5. Hypertensive cardiomyopathy with diastolic congestive heart failure, chronic. 6. History of recurrent panniculitis of the abdomen. 7. Morbid obesity due to excess caloric intake. 8. Body mass index 34.5 9. Diabetes type 2 insulin-dependent, controlled. 10. Personal history of prostate cancer with radiation. 11. History of coronary artery disease with prior coronary artery bypass grafting. 12. Dependency of mobility device with a cane. 13. Anxiety. 14. History of multiple abdominal surgeries for intra-abdominal adhesions and pain. 15. History of multiple abdominal wall incisions including paramedian incisions and multiple abdominal wall hernia repairs. 16. History of urinary retention. 17. History of dementia. 18. Coronary artery disease with previous history of angioplasty. POSTOPERATIVE DIAGNOSIS: 1. Personal history of multiple abdominal surgeries. 2. Severe right lower quadrant abdominal pain. 3. Chronic pain syndrome. 4. Chronic abdominal pain. 5. Hypertensive cardiomyopathy with diastolic congestive heart failure, chronic. 6. History of recurrent panniculitis of the abdomen. 7. Morbid obesity due to excess caloric intake. 8. Body mass index 34.5 9. Diabetes type 2 insulin-dependent, controlled. 10. Personal history of prostate cancer with radiation. 11. History of coronary artery disease with prior coronary artery bypass grafting. 12. Dependency of mobility device with a cane. 13. Anxiety. 14. History of multiple abdominal surgeries for intra-abdominal adhesions and pain. 15. History of multiple abdominal wall incisions including paramedian incisions and multiple abdominal wall hernia repairs. 16. History of urinary retention. 17. History of dementia. 18. Coronary artery disease with previous history of angioplasty. OPERATION: 1. Extensive open lysis of adhesions over 3 hours 2. Peritoneal lavage 3 L normal saline solution. 3. Placement of JIGAR drain #19 round, left lower quadrant. ANESTHESIA: General with local anesthetic. ESTIMATED BLOOD LOSS: 75 mL. SPECIMENS REMOVED: NONE. COMPLICATIONS: None. OPERATIVE FINDINGS: 1. Severe interloop and peritoneal adhesions involving the entire abdomen of the small bowel to abdominal wall including greater omentum to the abdominal wall. 2. Thick cicatrix along the lower abdomen over 4 cm from previous multiple abdominal mesh repair. 3. Severe adhesion involving the right lower quadrant of small bowel, ileum to the right lower pelvis consistent with the patient's area of pain. 4. Entire lysis of adhesions performed over 3 hours. 5. Abdominal peritoneal lavage 3 L performed. 6. Nasogastric tube placed for manipulation of the small bowel. INDICATIONS: The patient is a 76-year-old male who presents with chronic abdominal pain over decade. In the last 2-3 years, he reports worsening right lower quadrant abdominal pain where he has been hospitalized including presented to emergency room several times before. He had gone to pain clinic with minimal improvement of symptoms. Separately, he has personal history of multiple abdominal surgeries including multiple hernia repairs. Given the persistent severity of his pain, he had elected for surgical intervention. Surgical intervention with open exploratory laparotomy with lysis of adhesions and possible bowel resection was reviewed in detail. Benefits and risks of the procedures were discussed. Informed consent was obtained. DESCRIPTION: The patient was brought to the operating room. After general induction, the abdomen was then prepped and draped in standard sterile fashion using chlorhexidine. Ioban draping was also placed. Prior to incision, a timeout protocol was confirmed with surgical team regarding patient's name including procedures to be performed. Preoperative medications were confirmed. Attention was brought to the abdomen whereby a well healed lower midline incision was encountered. Next, a #10 blade was used to enter along the epigastrium and extended down to the pubis. Carefully the abdomen was entered using electro- Bovie cautery. Carefully abdomen was entered along the epigastrium using a combination of sharp with Metzenbaum scissors including blunt dissection. Next, additional adhesions were palpated along the abdominal wall consistent with the greater omentum. Of the lower abdomen, several pockets were encountered, whereby the small bowel was found to be proximally dilated and distally decompressed. Using minimal electro-Bovie cautery as well as using sharp dissection with a Metzenbaum scissors, these adhesions of the greater omentum to the abdominal wall were sharply taken down. Next, along the greater omentum, a small bowel loop was found dilated and actually pinched in an internal hernia of the left lower abdomen. The greater omental defect was palpated and divided using a LigaSure. Immediately, the small bowel was released, with a chronic depression consistent with adhesive band disease. Next, the small bowel was still moderately dilated with completely decompressed distal ileum. The colon, particularly the sigmoid was completely decompressed. The ascending colon was also decompressed. A very thick and tight adhesive band emanating from the right lower pelvis was adherent involving the distal ileum. The band was excised along its base. The small bowel was viable and well- perfused. The small bowel was inspected from distal to proximal, starting from the ileocecal valve. Another point of obstruction was confirmed along the distal jejunum whereby the small bowel was also encroached within another defect of the greater omentum. Similarly, the defect of the greater omentum was divided using LigaSure. At this point all adhesions were found to have been addressed, as immediately peristalsis had resumed along the mid to distal small bowel. Excellent revascularization had occurred of the rest of the bowel and her small bowel obstruction had been released. From distal to proximal, the small bowel was investigated up to the ligament of Treitz whereby no further features of internal hernia was identified. No features of small bowel volvulus was found. No small bowel pathology or tumors were palpated. Along the sigmoid colon as well as the descending and ascending colon, no palpable pathology or tumors were identified. No peritoneal studding was identified. Points of his pain including the right lower quadrant and bilateral lower pelvis were addressed consistent with the patient's location of the pain. All adhesions were lysed for over 3 hours. The stomach was palpated whereby the nasogastric tube was advanced to the midportion of the stomach and secured. The greater omentum was inspected to identify any other potential hernias. Majority of his greater omentum was still intact. A portion of the greater omentum was resected. The greater omentum was tucked along the pelvis. The abdomen was inspected for hemostasis and closed using 2 sutures of double- stranded 0 PDS from inferior to superiorly. The incision around the umbilicus was reapproximated using 3-0 Vicryl in an interrupted subcuticular fashion including the rest of the incision. The skin was cleansed and the Ioban draping was removed. An Optifoam surgical dressing was placed. A round #19 JIGAR chain was placed and exited via the left lower abdomen. A JIGAR bulb was placed. An Optifoam dressing was placed over the JIGAR site. At the end of the procedure, needle, sponge, and instrument count had been verified correct by the surgical garment inspector. The patient was extubated and taken to the postanesthesia care unit in stable condition. The patient's family was made aware of the intraoperative findings and pleased with the level of care.
== END 2016-10-20 17:43 | disposition home or self-care (01) | DRG 336 ==
LOC: 2ORWHC 08:30 → 3SUR 15:37
PROVIDERS: ADMIT Surgery Plastic and Reconstructive Surgery; ATTEND Surgery Plastic and Reconstructive Surgery
PROC: 0DNS0ZZ (ICD-10-PCS; principal; 2016-10-15 10:00)
PROC: 0DN80ZZ Release Small Intestine, Open Approach (ICD-10-PCS; principal; 2016-10-15 10:00)
PROC: 0DNB0ZZ Release Ileum, Open Approach (ICD-10-PCS; principal; 2016-10-15 10:00)
DX: K66.0 Peritoneal adhesions (postprocedural) (postinfection) (principal); F11.20 Opioid dependence, uncomplicated; I43 Cardiomyopathy in diseases classified elsewhere; I11.0 Hypertensive heart disease with heart failure; F03.90 Unspecified dementia, unspecified severity, without behavioral disturbance, psychotic disturbance, mood disturbance, and anxiety; E83.42 Hypomagnesemia; I50.32 Chronic diastolic (congestive) heart failure; E11.9 Type 2 diabetes mellitus without complications; E66.9 Obesity, unspecified; E78.5 Hyperlipidemia, unspecified; F41.9 Anxiety disorder, unspecified; G47.33 Obstructive sleep apnea (adult) (pediatric); G89.4 Chronic pain syndrome; I10 Essential (primary) hypertension; I25.10 Atherosclerotic heart disease of native coronary artery without angina pectoris; E66.01 Morbid (severe) obesity due to excess calories; K46.9 Unspecified abdominal hernia without obstruction or gangrene; M15.9 Polyosteoarthritis, unspecified; Z96.651 Presence of right artificial knee joint; Z79.4 Long term (current) use of insulin; Z79.82 Long term (current) use of aspirin; Z79.899 Other long term (current) drug therapy; Z80.42 Family history of malignant neoplasm of prostate; Z80.43 Family history of malignant neoplasm of testis; Z82.49 Family history of ischemic heart disease and other diseases of the circulatory system; Z85.46 Personal history of malignant neoplasm of prostate; Z92.3 Personal history of irradiation; Z95.1 Presence of aortocoronary bypass graft; Z88.0 Allergy status to penicillin; Z88.3 Allergy status to other anti-infective agents; Z91.041 Radiographic dye allergy status
CPT/HCPCS: 80048; 80053; 83036; 83735; 84100; 85025; 86850; 86900; 86901; 96372; 99283

== ENCOUNTER 2017-01-25 12:56 | Emergency (ER) | payer MEDICARE, BC ==
[2017-01-25 13:10] VITALS: RESP 20
[2017-01-25] MEDS ORDERED: SODIUM CHLORIDE 0.9% 1,000 ML IV STA (15:31)
[2017-01-25] MEDS ORDERED: MORPHINE SULFATE 2 MG/ML SYRINGE IVP STA (15:31)
--- NOTE | 2017-01-25 15:36 | ED ---
Abdominal Pain HPI - General Chief Complaint: Abdominal Pain Stated Complaint: Abd Pain Time Seen by Provider: 01/25/17 15:24 Source: patient Mode of arrival: wheelchair Limitations: no limitations - History of Present Illness Initial Comments: This 76-year-old white male presents with a complaint of right lower quadrant abdominal pain. He states that this is been going on for many months but it is been worse recently. He apparently had surgery by Dr. Samano for lysis of adhesions in September 2016. He states that he normally takes [place] for pain but has had to take more recently and it does not seem to be working well. The pain is only in the right lower quadrant does not radiate. There is no flank pain. He has had some mild dysuria but denies any frequency urgency or hematuria. He denies any fevers or chills. He is worried about his adhesions reoccurring. He was seen at [facility] and had an ultrasound on 01/14/2017. This did show that there is some scarring along the anterior midline and mild edema within the mesenteric fat. There is extensive anterior scarring and prior mesh repair. There is also a 5.22.3 cm area of soft tissue density just deep to the skin surface of the of the anterior right lower quadrant of uncertain etiology and was present previously. There is a possibility of extensive scar tissue her chronic hematoma. There is a small direct inguinal hernia on the right. There is possible lateral wall thickening. They do bring in the report for us to review. He denies any other complaints or modifying factors. He apparently has been taking too [place] was up to 4 times a day of the 10/325 strength. His states that he has been on [place] for a very long time. He also was previously on fentanyl but his doctor weaned him off this. His feels as though he has developed a tolerance to the [place]. He is requesting stronger pain medications. - Related Data Home Medications Medication Instructions Recorded Confirmed INSULIN LISPRO (humaLOG) [humaLOG] See Protocol SQ QID 11/07/13 01/25/17 amLODIPine [Norvasc] 10 mg PO W/SUPPER 11/07/13 01/25/17 Amiodarone [Cordarone] 200 mg PO W/SUPPER 03/23/15 01/25/17 Aspirin [Adult Low Dose Aspirin EC] 81 mg PO W/SUPPER 03/23/15 01/25/17 Cholecalciferol [Vitamin D3] 1,000 unit PO W/SUPPER 07/14/15 01/25/17 Insulin Glargine [Lantus] 40 unit SQ DAILY 07/14/15 01/25/17 HYDROcodone/APAP 7.5-325MG [[place] 2 tab PO Q4H PRN 09/22/15 01/25/17 7.5-325] Gabapentin [Neurontin] 300 mg PO Q8HR PRN 07/18/16 01/25/17 Baclofen 10 mg PO HS 10/08/16 01/25/17 Pravastatin Sodium [Pravachol] 40 mg PO HS 10/08/16 01/25/17 Ibuprofen [Motrin] 400 mg PO Q6HR PRN 01/25/17 01/25/17 L.acidoph,Paracasei, B.lactis 1 cap PO HS 01/25/17 01/25/17 [Probiotic] Previous Rx's Medication Instructions Recorded Dicyclomine [Bentyl] 30 mg PO QID PRN #20 tablet 01/25/17 Allergies Allergy/AdvReac Type Severity Reaction Status Date / Time Iodinated Contrast- Oral and Allergy Rash/Hives Verified 01/25/17 15:56 IV Dye iodine Allergy Rash/Hives Verified 01/25/17 15:56 Penicillins Allergy Swelling Verified 01/25/17 15:56 duloxetine [From Cymbalta] AdvReac PRICKLY Verified 01/25/17 15:56 FEELING IN HEAD Surgical Scrub Allergy Unknown Itching, Uncoded 01/25/17 13:10 Red skin Review of Systems ROS Statement: Those systems with pertinent positive or pertinent negative responses have been documented in the HPI. ROS Other: All systems not noted in ROS Statement are negative. Past Medical History Past Medical History: Coronary Artery Disease (CAD), Cancer, Diabetes Mellitus, Hyperlipidemia, Hypertension, Osteoarthritis (OA), Prostate Disorder, Sleep Apnea/CPAP/BIPAP Additional Past Medical History / Comment(s): Prostate cancer-2010- tx with radiation. USES CPAP. HAS ABD ADHESIONS, HAS SEVERE ABD PAIN. History of Any Multi-Drug Resistant Organisms: None Reported Past Surgical History: Appendectomy, Back Surgery, Cholecystectomy, Coronary Bypass/CABG, Heart Catheterization, Hernia Repair, Joint Replacement, Orthopedic Surgery Additional Past Surgical History / Comment(s): ORIF LT Ankle. ORIF LT Fibula Surgery. RT Knee Replacement. 2008 Triple CABG. Abdominal adhesions. Fatty tumor from neck. CTR jono. Abdominal surgery with mesh in 2001. Back nerve surgery. Rotator cuff-left shoulder. ING hernia repair w/ mesh. 3 fatty tumors removed 08/15/15 Past Anesthesia/Blood Transfusion Reactions: No Reported Reaction Past Psychological History: Anxiety Smoking Status: Never smoker Past Alcohol Use History: None Reported Past Drug Use History: None Reported - Past Family History Father History Unknown: Yes Family Medical History: Cancer Additional Family Medical History / Comment(s): PROSTATE CANCER Son(s) Family Medical History: Cancer Additional Family Medical History / Comment(s): TESTICULAR CANCER Mother Family Medical History: Coronary Artery Disease (CAD), Hypertension Sister(s) Family Medical History: Cancer General Exam - General Exam Comments Initial Comments: GENERAL: The patient is well nourished and well hydrated. VITAL SIGNS: Heart rate, blood pressure, respiratory rate reviewed as recorded in nurse's notes. EYES: Pupils are round and reactive. Extraocular movements are intact. No conjunctival / lid redness or swelling. ENT: No external evidence of injury, swelling, or ecchymosis. Airway is patent. Throat is clear. NECK: Nontender. No swelling or evidence of injury. No subcutaneous emphysema. Trachea is midline. No thyroid mass. HEART: Regular rate and rhythm. Good peripheral pulses. LUNGS/CHEST: Breath sounds clear and equal bilaterally. No rales, rhonchi, or wheezes. No ecchymosis, subcutaneous emphysema, or tenderness. ABDOMEN: There is tenderness present to the right lower quadrant of the abdomen. No flank tenderness. Abdomen is soft. No palpable masses or organomegaly. No peritoneal signs. No abdominal wall swelling or ecchymosis. EXTREMITIES: No extremity tenderness. Normal muscle tone and function. No thoracolumbar tenderness. NEUROLOGIC: Sensation is grossly intact. Cranial nerve exam reveals face is symmetrical, tongue is midline, speech is clear. SKIN: No abrasions or ecchymosis is noted. No induration or masses noted. PSYCHIATRIC: Alert and oriented. Appropriate behavior and judgment. Limitations: no limitations Course Vital Signs 01/25/17 13:07 Temperature 97.1 F L Pulse Rate 69 Respiratory 20 Rate Blood Pressure 117/71 O2 Sat by Pulse 95 Oximetry Medical Decision Making - Medical Decision Making The patient was seen and examined. The ultrasound report from 11 days ago was reviewed. He also receives an IV with some fluid hydration and morphine. He is in no distress on recheck. The computed tomography scan of the abdomen and pelvis does not show any acute processes with incidental findings noted, please see report for details. The blood sugar is elevated but remainder of labs are within normal limits. Exact cause of his abdominal pain is not definitely determined. The possibility of recurrent adhesion certainly is possible. Nevertheless, it is felt as though he is stable for discharge and close follow- up with his surgeon. He is requesting stronger pain medications. It appears that he is on massive amounts of narcotics currently for his age. Bentyl will be given to see if this helps as well. He understands and leaves in no identifiable distress. - Lab Data Result diagrams: 01/25/17 15:41 01/25/17 15:41 Lab Results 01/25/17 01/25/17 01/25/17 Range/Units 15:41 15:41 15:41 WBC 9.0 (3.8-10.6) k/uL RBC 4.91 (4.30-5.90) m/uL Hgb 14.9 (13.0-17.5) gm/dL Hct 45.1 (39.0-53.0) % MCV 92.0 (80.0-100.0) fL MCH 30.3 (25.0-35.0) pg MCHC 33.0 (31.0-37.0) g/dL RDW 14.1 (11.5-15.5) % Plt Count 242 (150-450) k/uL Neutrophils % 60 % Lymphocytes % 29 % Monocytes % 8 % Eosinophils % 1 % Basophils % 1 % Neutrophils # 5.4 (1.3-7.7) k/uL Lymphocytes # 2.6 (1.0-4.8) k/uL Monocytes # 0.7 (0-1.0) k/uL Eosinophils # 0.1 (0-0.7) k/uL Basophils # 0.1 (0-0.2) k/uL PT 9.8 (9.0-12.0) sec INR 1.0 (<1.2) APTT 22.7 (22.0-30.0) sec Sodium 141 (137-145) mmol/L Potassium 3.6 (3.5-5.1) mmol/L Chloride 100 (98-107) mmol/L Carbon Dioxide 28 (22-30) mmol/L Anion Gap 13 mmol/L BUN 20 (9-20) mg/dL Creatinine 1.10 (0.66-1.25) mg/dL Est GFR (MDRD) Af Amer >60 (>60 ml/min/1.73 sqM) Est GFR (MDRD) Non-Af >60 (>60 ml/min/1.73 sqM) Glucose 285 H (74-99) mg/dL Plasma Lactic Acid Ned (0.7-2.0) mmol/L Calcium 10.1 (8.4-10.2) mg/dL Total Bilirubin 0.4 (0.2-1.3) mg/dL AST 24 (17-59) U/L ALT 37 (21-72) U/L Alkaline Phosphatase 69 (38-126) U/L Total Protein 7.3 (6.3-8.2) g/dL Albumin 4.6 (3.5-5.0) g/dL Amylase <30 L (30-110) U/L Lipase 22 L (23-300) U/L Urine Color Urine Appearance (Clear) Urine pH (5.0-8.0) Ur Specific [place] (1.001-1.035) Urine Protein (Negative) Urine Glucose (UA) (Negative) Urine Ketones (Negative) Urine Blood (Negative) Urine Nitrite (Negative) Urine Bilirubin (Negative) Urine Urobilinogen (<2.0) mg/dL Ur Leukocyte Esterase (Negative) Urine RBC (0-5) /hpf Urine WBC (0-5) /hpf Ur Squamous Epith Cells (0-4) /hpf Hyaline Casts (0-2) /lpf Urine Mucus (None) /hpf 01/25/17 01/25/17 Range/Units 16:00 16:02 WBC (3.8-10.6) k/uL RBC (4.30-5.90) m/uL Hgb (13.0-17.5) gm/dL Hct (39.0-53.0) % MCV (80.0-100.0) fL MCH (25.0-35.0) pg MCHC (31.0-37.0) g/dL RDW (11.5-15.5) % Plt Count (150-450) k/uL Neutrophils % % Lymphocytes % % Monocytes % % Eosinophils % % Basophils % % Neutrophils # (1.3-7.7) k/uL Lymphocytes # (1.0-4.8) k/uL Monocytes # (0-1.0) k/uL Eosinophils # (0-0.7) k/uL Basophils # (0-0.2) k/uL PT (9.0-12.0) sec INR (<1.2) APTT (22.0-30.0) sec Sodium (137-145) mmol/L Potassium (3.5-5.1) mmol/L Chloride (98-107) mmol/L Carbon Dioxide (22-30) mmol/L Anion Gap mmol/L BUN (9-20) mg/dL Creatinine (0.66-1.25) mg/dL Est GFR (MDRD) Af Amer (>60 ml/min/1.73 sqM) Est GFR (MDRD) Non-Af (>60 ml/min/1.73 sqM) Glucose (74-99) mg/dL Plasma Lactic Acid Ned 2.3 H* (0.7-2.0) mmol/L Calcium (8.4-10.2) mg/dL Total Bilirubin (0.2-1.3) mg/dL AST (17-59) U/L ALT (21-72) U/L Alkaline Phosphatase (38-126) U/L Total Protein (6.3-8.2) g/dL Albumin (3.5-5.0) g/dL Amylase (30-110) U/L Lipase (23-300) U/L Urine Color Yellow Urine Appearance Cloudy (Clear) Urine pH 5.0 (5.0-8.0) Ur Specific [place] 1.028 (1.001-1.035) Urine Protein 1+ H (Negative) Urine Glucose (UA) Trace H (Negative) Urine Ketones Negative (Negative) Urine Blood Negative (Negative) Urine Nitrite Negative (Negative) Urine Bilirubin 1+ H (Negative) Urine Urobilinogen 2.0 (<2.0) mg/dL Ur Leukocyte Esterase Negative (Negative) Urine RBC <1 (0-5) /hpf Urine WBC 2 (0-5) /hpf Ur Squamous Epith Cells 1 (0-4) /hpf Hyaline Casts 70 H (0-2) /lpf Urine Mucus Occasional H (None) /hpf Disposition Clinical Impression: Abdominal pain, Adhesion of abdominal wall, Chronic pain syndrome Disposition: HOME SELF-CARE Condition: Good Instructions: Abdominal Pain (ED) Prescriptions: Dicyclomine [Bentyl] 30 mg PO QID PRN #20 tablet PRN Reason: Pain Referrals: Dean Evangelista MD [Primary Care Provider] - 1-2 days Time of Disposition: 18:00 Decision Date: 01/25/17 Decision Time: 18:00
[2017-01-25] MEDS ORDERED: KETOROLAC 30 MG/ML 1 ML VIAL IVP STA (15:46)
[2017-01-25 15:59] LABS: Basophils # (A) 0.1 k/uL (0-0.2); Basophils % (A) 1 %; CH 30.9; CHCM 33.8; Eosinophils # (A) 0.1 k/uL (0-0.7); Eosinophils % (A) 1 %; HCT 45.1 % (39.0-53.0); HDW 2.45; HGB 14.9 gm/dL (13.0-17.5); Luc % (Auto) 2; Lymphocytes # (A) 2.6 k/uL (1.0-4.8); Lymphocytes % (A) 29 %; MCH 30.3 pg (25.0-35.0); Mean Platelet Volume 9.4; Monocytes # (A) 0.7 k/uL (0-1.0); Monocytes % (A) 8 %; Neutrophils # (A) 5.4 k/uL (1.3-7.7); Neutrophils % (A) 60 %; RBC 4.91 m/uL (4.30-5.90); RDW 14.1 % (11.5-15.5); WBC (Perox) 9.26
[2017-01-25 16:07] LABS: Partial Thromboplastin Time 22.7 sec (22.0-30.0); Prothrombin Time 9.8 sec (9.0-12.0)
[2017-01-25 16:24] LABS: ALT 37 U/L (21-72); AST 24 U/L (17-59); Alkaline Phosphatase 69 U/L (38-126); Amylase <30 U/L (30-110); Anion Gap 13 mmol/L; Blood Urea Nitrogen 20 mg/dL (9-20); Calcium 10.1 mg/dL (8.4-10.2); Carbon Dioxide 28 mmol/L (22-30); Chloride 100 mmol/L (98-107); Glucose 285 mg/dL (74-99); Non-African American GFR(MDRD) >60 (>60 ml/min/1.73 sqM); Sodium 141 mmol/L (137-145); Total Bilirubin 0.4 mg/dL (0.2-1.3); Total Protein 7.3 g/dL (6.3-8.2)
[2017-01-25 16:25] LABS: Potassium 3.6 mmol/L (3.5-5.1)
[2017-01-25 16:32] LABS: Appearance,Urine Cloudy (Clear); Bilirubin,Urine 1+ (Negative); Glucose,Urine (UA) Trace (Negative); Ketones,Urine Negative (Negative); Leukocyte Esterase,Urine Negative (Negative); Mucus,Urine Occasional /hpf; Nitrite,Urine Negative (Negative); Particle Count 7318; Protein,Urine 1+ (Negative); RBC,Urine <1 /hpf (0-5); Specific Gravity,Urine 1.028 (1.001-1.035); Squamous Epithelial Cell,Urine 1 /hpf (0-4); UA Billing (MACRO vs. MICRO) MICRO; WBC,Urine 2 /hpf (0-5)
--- NOTE | 2017-01-25 17:33 | CT ---
EXAMINATION TYPE: CT abdomen pelvis wo con DATE OF EXAM: 01/25/2017 COMPARISON: 10/11/2016 HISTORY: Lower abdominal/pelvic pain midline CT DLP: 953 mGycm Automated exposure control for dose reduction was used. TECHNIQUE: Helical acquisition of images was performed from the lung bases through the pelvis. FINDINGS: Lung bases are clear of consolidation. There is no pleural effusion. Liver shows no focal defect. Spl een pancreas appear normal. Bile ducts are not dilated. Gallbladder appears absent. There is no adrenal mass. There is a 2 cm cortical cyst on the anterior right kidney. There is no hyd ronephrosis. There is no retroperitoneal adenopathy. There is mild atheromatous change in the abdomin al aorta. There is ventral midline incision with subcutaneous density consistent with scar tissue the re is no ascites. Bladder distends smoothly. Prostate is enlarged. I see no intestinal wall thickenin g. There are no dilated loops. There is thinning of the anterior abdominal wall with hernia surgery n oted. There is subcutaneous increased density over the anterior right abdomen. This is unchanged comp ared to old exam. There is multilevel spondylosis in the lumbar spine. There is multilevel lumbar laminectomy defect. A ppendix is not seen. There is no sign of appendicitis. IMPRESSION: LEFT RENAL CYST. ATHEROSCLEROTIC VASCULAR DISEASE. NO SIGN OF ACUTE ABDOMEN AND PELVIS. PREVIOUS SURG TOMAS. NO SIGNIFICANT CHANGE COMPARED TO OLD EXAM. ENLARGED PROSTATE. STABLE 1 MM CALCULUS IN THE RIGHT KIDNEY. NO RENAL OBSTRUCTION.
[2017-01-25 18:18] VITALS: BP 129/72; PULSE 84; TEMP 97.3
== END 2017-01-25 18:17 | disposition home or self-care (01) ==
LOC: EC 12:56
DX: K66.0 Peritoneal adhesions (postprocedural) (postinfection) (principal); R10.31 Right lower quadrant pain; G89.4 Chronic pain syndrome; R30.0 Dysuria; I25.10 Atherosclerotic heart disease of native coronary artery without angina pectoris; E11.9 Type 2 diabetes mellitus without complications; E78.5 Hyperlipidemia, unspecified; I10 Essential (primary) hypertension; M19.90 Unspecified osteoarthritis, unspecified site; G47.30 Sleep apnea, unspecified; Z99.89 Dependence on other enabling machines and devices; F41.9 Anxiety disorder, unspecified; Z85.46 Personal history of malignant neoplasm of prostate; Z79.4 Long term (current) use of insulin; Z79.82 Long term (current) use of aspirin; Z79.899 Other long term (current) drug therapy; Z91.041 Radiographic dye allergy status; Z88.0 Allergy status to penicillin; Z88.8 Allergy status to other drugs, medicaments and biological substances; Z91.048 Other nonmedicinal substance allergy status; Z90.49 Acquired absence of other specified parts of digestive tract; Z98.890 Other specified postprocedural states
CPT/HCPCS: 99284; 96374; 96361 ×2; 36415; 80053; 82150; 83605; 83690; 85025; 85610; 85730; 81001; 87086; 74176; J1885

== ENCOUNTER 2017-03-28 13:16 | Inpatient (IN) | payer MEDICARE, BC ==
[2017-03-24 10:57] VITALS: BMI 32.1
[~2017-03-28 13:16] MED LIST changes: -CLINDAMYCIN 900 MG in DEXTROSE 5% IN WATER 50 ML IVPB ONE; -DEXAMETHASONE SOD PHOSPHATE 10 MG/ML 1 ML VIAL IV ONE; -MIDAZOLAM 2 MG/2 ML VIAL IV PRN; +MORPHINE SULFATE 4 MG/ML SYRINGE IV PRN; -ONDANSETRON 4 MG/2 ML VIAL IVP ONE; -SCOPOLAMINE 1.5MG/72HR PATCH TRANSDERM ONE
[2017-03-28] MEDS: LACTATED RINGERS 1,000 ML IV SCH (13:42)
[2017-03-28] MEDS ORDERED: LIDOCAINE 1% 20 ML VIAL (10MG/ML) FOR IV START INTRADERMA ONE (13:43)
[2017-03-28 13:47] LABS: Glucose,Whole Blood 204 mg/dL (75-99)
[2017-03-28] MEDS ORDERED: INSULIN ASPART 100 UNIT/ML 1 ML 10 ML VIAL SQ ONE (13:59)
--- NOTE | 2017-03-28 14:01 | P.GSHP ---
History of Present Illness H&P Date: 03/28/17 CHIEF COMPLAINT: Inguinal hernia, right. HISTORY OF PRESENT ILLNESS: The patient is a 77-year-old male who presents with a history of swelling and pain along the right groin. He's noted increased swelling including pain of the area. He complains of recurrent right groin pain as he has previous right open inguinal hernia repair with mesh. He reports chronic right groin pain from the mesh including recurrence of potential hernia. Separately, he has a left inguinal hernia. He now presents for repair PAST MEDICAL HISTORY: Please see list. PAST SURGICAL HISTORY: Please see list. MEDICATIONS: Please see list. ALLERGIES: Please see list. SOCIAL HISTORY: No illicit drug use FAMILY HISTORY: No reports of Crohn disease or ulcerative colitis. REVIEW OF ORGAN SYSTEMS: CONSTITUTIONAL: No reports of fevers or chills. No reports of weight loss despite prior attempts. GI: Denies any blood in stools or constipation. PHYSICAL EXAM: VITAL SIGNS: Stable GENERAL: Well-developed pleasant male in no acute distress. HEENT: No scleral icterus. Extraocular movements grossly intact. Moist buccal mucosa. NECK: Supple without lymphadenopathy. CHEST: Unlabored respirations. Equal bilateral excursions. CARDIOVASCULAR: Regular rate and rhythm. Distal 2+ pulses. ABDOMEN: Soft, nondistended. No peritoneal signs. Pain along the right groin. MUSCULOSKELETAL: No clubbing, cyanosis, or edema. ASSESSMENT: 1. Inguinal hernia, right and symptomatic. PLAN: 1. Recommend proceeding Robotic right groin exploration with removal of mesh and repair right inguinal hernia possible bilateral. 2. Benefits and risks of surgical intervention was discussed including possibility of open technique. 3. May need overnight observation pending anticipated postoperative pain. 4. DVT prophylaxis. 5. Antibiotic prophylaxis. Past Medical History Past Medical History: Coronary Artery Disease (CAD), Cancer, Diabetes Mellitus, Hyperlipidemia, Hypertension, Memory Impairment, Osteoarthritis (OA), Pneumonia , Prostate Disorder, Sleep Apnea/CPAP/BIPAP Additional Past Medical History / Comment(s): Prostate cancer-2011- tx with radiation. supposed to use CPAP. HAS ABD ADHESIONS, recent admission for abd. pain & pneumonia History of Any Multi-Drug Resistant Organisms: None Reported Past Surgical History: Appendectomy, Back Surgery, Cholecystectomy, Coronary Bypass/CABG, Heart Catheterization, Hernia Repair, Joint Replacement, Orthopedic Surgery Additional Past Surgical History / Comment(s): ORIF Rt Ankle. ORIF Rt Fibula Surgery. RT Knee Replacement. 2008 Triple CABG. Abdominal adhesions. Fatty tumor from neck. CTR jono. Abdominal surgery with mesh in 2001. Back nerve surgery. Rotator cuff-left shoulder. ING hernia repair w/ mesh. 3 fatty tumors removed 08/15/15 Past Anesthesia/Blood Transfusion Reactions: No Reported Reaction Smoking Status: Never smoker - Past Family History Father History Unknown: Yes Family Medical History: Cancer Additional Family Medical History / Comment(s): PROSTATE CANCER Son(s) Family Medical History: Cancer Additional Family Medical History / Comment(s): TESTICULAR CANCER Mother Family Medical History: Coronary Artery Disease (CAD), Hypertension Sister(s) Family Medical History: Cancer Medications and Allergies Home Medications Medication Instructions Recorded Confirmed Type INSULIN LISPRO (humaLOG) [humaLOG] See Protocol SQ QID 11/07/13 03/24/17 History amLODIPine [Norvasc] 10 mg PO W/SUPPER 11/07/13 03/24/17 History Amiodarone [Cordarone] 200 mg PO W/SUPPER 03/23/15 03/24/17 History Aspirin [Adult Low Dose Aspirin EC] 81 mg PO W/SUPPER 03/23/15 03/24/17 History Cholecalciferol [Vitamin D3] 1,000 unit PO W/SUPPER 07/14/15 03/24/17 History Insulin Glargine [Lantus] 40 unit SQ QAM 07/14/15 03/24/17 History Baclofen 10 mg PO HS 10/08/16 03/24/17 History Pravastatin Sodium [Pravachol] 40 mg PO HS 10/08/16 03/24/17 History L.acidoph,Paracasei, B.lactis 1 cap PO HS 01/25/17 03/24/17 History [Probiotic] Docusate [Colace] 100 mg PO HS 02/23/17 03/24/17 History Gabapentin [Neurontin] 400 mg PO Q8HR PRN 02/23/17 03/24/17 History HYDROcodone/APAP 10-325MG [[place] 1 tab PO Q6H PRN 02/23/17 03/24/17 History 10-325] traMADol HCL [Ultram] 50 mg PO Q4HR PRN #30 tab 02/25/17 03/24/17 Rx Allergies Allergy/AdvReac Type Severity Reaction Status Date / Time Iodinated Contrast- Oral and Allergy Rash/Hives Verified 03/28/17 13:22 IV Dye iodine Allergy Rash/Hives Verified 03/28/17 13:22 Penicillins Allergy Swelling Verified 03/28/17 13:22 duloxetine [From Cymbalta] AdvReac PRICKLY Verified 03/28/17 13:22 FEELING IN HEAD povidone-iodine AdvReac Itchy,red Verified 03/28/17 13:22 [From Betadine] skin soap [From Betadine] AdvReac Itchy,red Verified 03/28/17 13:22 skin Surgical Scrub Allergy Unknown Itching, Uncoded 03/28/17 13:22 Red skin Surgical - Exam Vital Signs Temp Pulse Resp BP Pulse Ox 98.2 F 83 16 149/72 98 03/28/17 13:32 03/28/17 13:32 03/28/17 13:32 03/28/17 13:32 03/28/17 13:32 Results - Labs Abnormal Lab Results - Last 24 Hours (Table) 03/28/17 Range/Units 13:37 POC Glucose (mg/dL) 204 H (75-99) mg/dL
[2017-03-28] MEDS ORDERED: PROPOFOL 10 MG/ML 20 ML VIAL IV ONE (16:00)
[2017-03-28] MEDS ORDERED: SUCCINYLCHOLINE CHLORIDE 100 MG/5 ML SYR IV ONE (16:00)
[2017-03-28] MEDS ORDERED: ONDANSETRON 4 MG/2 ML VIAL ONE (16:00)
[2017-03-28] MEDS ORDERED: ePHEDrine SULFATE/0.9% NACL/PF 50 MG/5 ML SYRINGE IV ONE (16:00)
[2017-03-28] MEDS ORDERED: GLYCOPYRROLATE 0.2 MG/ML 2 ML VIAL ONE (16:00)
[2017-03-28] MEDS ORDERED: ROCURONIUM BROMIDE 10 MG/ML 10 ML VIAL IV ONE (16:00)
[2017-03-28] MEDS ORDERED: LIDOCAINE 1% INJ 10MG/ML (20 ML MDV) ONE (16:00)
[2017-03-28] MEDS ORDERED: fentaNYL (PF) 50 MCG/ML 2 ML AMP ONE (16:00)
[2017-03-28] MEDS ORDERED: MIDAZOLAM 2 MG/2 ML VIAL ONE (16:00)
[2017-03-28] MEDS ORDERED: NEOSTIGMINE 1 MG/ML 10 ML VIAL ONE (16:00)
[2017-03-28] MEDS: CLINDAMYCIN 900 MG in DEXTROSE 5% IN WATER 50 ML IVPB ONE ×4 (16:07→16:09)
[2017-03-28] MEDS ORDERED: BUPIVACAINE (PF) 0.5% 30 ML VIAL SQ ONE ×2 (16:07→16:27)
[2017-03-28] MEDS: LEVOFLOXACIN 500MG-D5W PMX 500 MG in DEXTROSE/WATER 1 100ML.BAG IVPB ONE ×2 (16:08→16:30)
--- NOTE | 2017-03-28 18:13 | P.PCN ---
Date of Procedure: 03/28/17 Preoperative Diagnosis: History of right lower quadrant pain, previous right inguinal hernia repair with mesh, chronic abdominal pain Postoperative Diagnosis: Same, severe intraperitoneal adhesions Procedure(s) Performed: Diagnostic laparoscopy, open right groin exploration with removal of foreign body of right inguinal mesh Anesthesia: GETA, local Surgeon: Loni Christensen Estimated Blood Loss (ml): 10 Pathology: other Condition: stable Disposition: floor Operative Findings: 1. Severe scarring along the right groin from previous right inguinal mesh repair. 2. Severe intra-abdominal adhesions prohibiting robotic-assisted approach for groin exploration.
[2017-03-28] MEDS ORDERED: ACETAMINOPHEN TAB 325 MG TAB PO PRN (18:14)
[2017-03-28] MEDS ORDERED: NALOXONE 0.4 MG/ML 1 ML VIAL IV PRN (18:14)
[2017-03-28] MEDS ORDERED: GABAPENTIN 400 MG CAP PO PRN (18:15)
[2017-03-28] MEDS: HYDROmorphone 0.5 MG/0.5 ML SYRINGE IVP PRN ×4 (18:27→18:44)
[2017-03-28 18:57] LABS: Glucose,Whole Blood 154 mg/dL (75-99)
[2017-03-28] MEDS ORDERED: PRAVASTATIN SODIUM 40 MG TAB PO SCH (21:00)
[2017-03-28] MEDS ORDERED: DOCUSATE 100 MG CAP PO SCH (21:00)
[2017-03-28] MEDS ORDERED: BACLOFEN 10 MG TAB PO SCH (21:00)
[2017-03-28] MEDS: HEPARIN SODIUM,PORCINE 5,000 UNIT/ML 1 ML VIAL SQ SCH (21:25)
[2017-03-28] MEDS: HYDROcodone/APAP 10-325MG 1 EACH TAB PO PRN (21:26)
[2017-03-29] MEDS: traMADol 50 MG TAB PO PRN ×2 (00:41→07:04)
[2017-03-29 01:09] LABS: Glucose,Whole Blood 126 mg/dL (75-99)
[2017-03-29] MEDS: LACTATED RINGERS 1,000 ML IV SCH ×2 (02:00→05:29)
[2017-03-29] MEDS ORDERED: INSULIN ASPART 100 UNIT/ML 1 ML 10 ML VIAL SQ SCH ×4 (02:45→07:30)
[2017-03-29] MEDS: HYDROcodone/APAP 10-325MG 1 EACH TAB PO PRN ×2 (03:18→11:15)
[2017-03-29] MEDS ORDERED: HYDROmorphone 2 MG/ML 1 ML SYRINGE IVP PRN ×2 (04:30→07:47)
[2017-03-29 05:27] LABS: Glucose,Whole Blood 149 mg/dL (75-99)
[2017-03-29 08:03] VITALS: BP 130/63; PULSE 69; RESP 17; TEMP 98.2
[2017-03-29] MEDS: HEPARIN SODIUM,PORCINE 5,000 UNIT/ML 1 ML VIAL SQ SCH (08:55)
[2017-03-29] MEDS ORDERED: INSULIN DETEMIR 100 UNIT/ML 10 ML VIAL SQ SCH (09:00)
--- NOTE | 2017-03-29 09:59 | P.DS ---
Providers Date of admission: 03/28/17 13:16 Expected date of discharge: 03/29/17 Attending physician: Loni Christensen Primary care physician: Dean Bryant [facility] Course: 77-year-old male who presented with a history of swelling and pain along the right groin. Patient complains of recurrent right groin pain patient has had previous right open inguinal hernia repair with mesh. Patient reports chronic right ring pain from the mesh including reoccurrence of potential hernia. Patient presents on the day of admission to undergo diagnostic laparoscopy, open right groin excoriation with removal of foreign body of right inguinal mesh. Operative findings showed severe scarring along the right groin from previous right inguinal mesh repair, severe intra-abdominal adhesions prohibiting robotic-assisted approach for groin exploration. Postop no events. Patient has underlying chronic dementia.With memory impairment. On the day of discharge nursing found the patient up at the sink had removed the surgical dressing was taking washcloth and scrubbing the area. OptiForm dressing was applied to surgical site suture line well approximated no redness noted no drainage reinforced to the patient not to remove surgical dressing home. Patient reportedly lives with a spouse. Discharge instructions diagnosis Right inguinal hernia symptomatic History of chronic pain along the right groin Recurrent right groin pain Left inguinal hernia March 28 diagnostic laparoscopy, open right groin exploration with removal of foreign body of right inguinal mesh Severe scarring along the right groin from previous right inguinal mesh repair Baseline dementia with cognitive impairments The above impression and plan of care have been discussed and directed by signing physician. Brooklynn Wallace nurse practitioner acting as scribe for signing physician. Plan - Discharge Summary Discharge Rx Participant: No New Discharge Prescriptions: Continue INSULIN LISPRO (humaLOG) [humaLOG] See Protocol SQ QID amLODIPine [Norvasc] 10 mg PO W/SUPPER Aspirin [Adult Low Dose Aspirin EC] 81 mg PO W/SUPPER Amiodarone [Cordarone] 200 mg PO W/SUPPER Insulin Glargine [Lantus] 40 unit SQ QAM Cholecalciferol [Vitamin D3] 1,000 unit PO W/SUPPER Baclofen 10 mg PO HS Pravastatin Sodium [Pravachol] 40 mg PO HS L.acidoph,Paracasei, B.lactis [Probiotic] 1 cap PO HS HYDROcodone/APAP 10-325MG [[place] 10-325] 1 tab PO Q6H PRN PRN Reason: Pain Gabapentin [Neurontin] 400 mg PO Q8HR PRN PRN Reason: Pain Docusate [Colace] 100 mg PO HS traMADol HCL [Ultram] 50 mg PO Q4HR PRN #30 tab PRN Reason: Pain Discharge Medication List INSULIN LISPRO (humaLOG) [humaLOG] See Protocol SQ QID 11/07/13 [History] amLODIPine [Norvasc] 10 mg PO W/SUPPER 11/07/13 [History] Amiodarone [Cordarone] 200 mg PO W/SUPPER 03/23/15 [History] Aspirin [Adult Low Dose Aspirin EC] 81 mg PO W/SUPPER 03/23/15 [History] Cholecalciferol [Vitamin D3] 1,000 unit PO W/SUPPER 07/14/15 [History] Insulin Glargine [Lantus] 40 unit SQ QAM 07/14/15 [History] Baclofen 10 mg PO HS 10/08/16 [History] Pravastatin Sodium [Pravachol] 40 mg PO HS 10/08/16 [History] L.acidoph,Paracasei, B.lactis [Probiotic] 1 cap PO HS 01/25/17 [History] Docusate [Colace] 100 mg PO HS 02/23/17 [History] Gabapentin [Neurontin] 400 mg PO Q8HR PRN 02/23/17 [History] HYDROcodone/APAP 10-325MG [[place] 10-325] 1 tab PO Q6H PRN 02/23/17 [History] traMADol HCL [Ultram] 50 mg PO Q4HR PRN #30 tab 02/25/17 [Rx] Follow up Appointment(s)/Referral(s): Loni Christensen MD [Family Provider] - 3 Days Dean Evangelista MD [Primary Care Provider] - 1 Week Activity/Diet/Wound Care/Special Instructions: No tub bath for six weeks. Shower daily. No lifting over 4 pounds for the next 6 weeks. Do not remove surgical dressing until seen in the follow-up visit with Dr. Christensen May use ice packs to surgical site. No driving while taking narcotic for pain. Discharge Disposition: HOME SELF-CARE
[2017-03-29] MEDS ORDERED: amLODIPine 10 MG TAB PO SCH (17:30)
[2017-03-29] MEDS ORDERED: AMIODARONE 200 MG TAB PO SCH (17:30)
[2017-03-29] MEDS ORDERED: CHOLECALCIFEROL 1,000 UNIT TAB PO SCH (17:30)
[2017-03-29] MEDS ORDERED: ASPIRIN 81 MG PO SCH (17:30)
--- NOTE | 2017-04-24 22:45 | P.OP ---
Date of Procedure: 03/28/17 Description of Procedure: SURGEON: AMMY GUARDADO MD CHIEF MARKETING OFFICER: Kendal Pascal. PREOPERATIVE DIAGNOSES: 1. Right groin pain. 2. History of right inguinal hernia with mesh 3. Chronic pain syndrome. 4. Chronic abdominal pain. 5. Hypertensive cardiomyopathy with diastolic congestive heart failure, chronic. 6. History of recurrent panniculitis of the abdomen. 7. Morbid obesity due to excess caloric intake. 8. Body mass index 32.1 9. Diabetes type 2 insulin-dependent poorly controlled. 10. Personal history of prostate cancer with radiation. 11. History of coronary artery disease with prior coronary artery bypass grafting. 12. Dependency of mobility device with a cane. 13. Anxiety. 14. History of multiple abdominal surgeries for intra-abdominal adhesions and pain. 15. History of multiple abdominal wall incisions including paramedian incisions and multiple abdominal wall hernia repairs. 16. History of urinary retention. 17. History of right lower quadrant pain POSTOPERATIVE DIAGNOSES: 1. Right groin pain. 2. History of right inguinal hernia with mesh 3. Chronic pain syndrome. 4. Chronic abdominal pain. 5. Hypertensive cardiomyopathy with diastolic congestive heart failure, chronic. 6. History of recurrent panniculitis of the abdomen. 7. Morbid obesity due to excess caloric intake. 8. Body mass index 32.1 9. Diabetes type 2 insulin-dependent poorly controlled. 10. Personal history of prostate cancer with radiation. 11. History of coronary artery disease with prior coronary artery bypass grafting. 12. Dependency of mobility device with a cane. 13. Anxiety. 14. History of multiple abdominal surgeries for intra-abdominal adhesions and pain. 15. History of multiple abdominal wall incisions including paramedian incisions and multiple abdominal wall hernia repairs. 16. History of urinary retention. 17. History of right lower quadrant pain 18. Severe intraperitoneal adhesions OPERATION: 1. Diagnostic laparoscopy 2. Open right groin exploration with removal of foreign body of right inguinal Prolene mesh system extended length ANESTHESIA: General with local anesthetic. ESTIMATED BLOOD LOSS: 10 mL. SPECIMENS REMOVED: Mesh. COMPLICATIONS: None. Condition: stable Disposition: floor INDICATIONS: The patient is a 77-year-old male who presented with history of chronic right groin pain. Two years ago, he had right inguinal hernia repair with mesh placement. Initially he had done well for 2 months. Since then he reports chronic and severe groin pain. Despite multiple conservative measures including referral to pain clinic, the patient had elected for removal of his previous mesh repair. Risk of injury to the right scrotum and testicle including recurrent right groin pain was described. Also recurrence of right groin hernia was described. Given his extensive abdominal surgical history, open surgical repair was described. Separately he has history of chronic abdominal pain as well as chronic pain syndrome and is on multiple narcotics. Benefits and risks including but not limited to bleeding, infection, recurrence , placement of mesh, chronic groin pain, urinary retention, sterility and need for additional procedures were reviewed and discussed. Informed consent was obtained. DESCRIPTION: Patient was brought to operating room, laid in supine position. After general induction, the right groin was prepped and draped in standard sterile fashion. A Dubose catheter was placed. Prior to incision, a timeout protocol was confirmed with the surgical team regarding the patient's name including procedures to be performed. Ioban draping was also placed along the groin as well. Initial left upper quadrant laparoscopic trocar entry was performed. Diagnostic laparoscopy demonstrated severe intra-abdominal peritoneal adhesions prohibiting robotic laparoscopic approach. Along the right inguinal crease, a 4 cm incision was made 2-fingerbreadths above the inguinal canal. A right groin block was performed after anesthetizing the skin medially at the pubic tubercle as well as between and laterally at the anterior inferior iliac spine. The incision was developed through the Ruben's plane using electro- Bovie cautery. The external oblique aponeuroses and external ring were exposed of the inguinal fibers and incised in the direction of the fibers of the inguinal canal. Severe scarring reaction of the right groin mesh was identified. Flaps of the external oblique were mobilized. The previous Prolene hernia system extended length was dissected free from the surrounding tissues without injury to the spermatic cord. Extensive dissection occurred over 1 hour. The 2-0 Nurolon sutures were identified and cut with scissors. The mesh was removed. The external oblique aponeuroses was closed using 3-0 Vicryl in a running fashion. The internal ring was re-created. Ruben's fascia was closed similarly using interrupted 3-0 Vicryl. The skin was closed using 4-0 Monocryl in a running subcuticular fashion. The rest of local anesthetic was placed throughout the incision for postop analgesia given his history of chronic pain. The skin was cleansed. Dermabond was applied over the wound. Optifoam surgical dressing was placed lengthwise over the incision also to protect and minimize exposure of his pannus as well as panniculitis. The Dubose catheter was removed at the end of the case. The patient had tolerated the procedure well and was taken to postanesthesia care unit in stable condition. As the patient has multiple comorbidities including cardiac history, urinary retention and chronic pain, the patient was admitted for observation. FINDINGS: 1. Severe scarring along the right groin from previous right inguinal mesh repair. 2. Severe intra-abdominal adhesions prohibiting robotic-assisted approach for groin exploration.
== END 2017-03-29 11:30 | disposition home or self-care (01) | DRG 699 ==
LOC: 2ORWHC 13:16 → EDSTATUS 14:40 → 3SUR 18:26
PROVIDERS: ADMIT Surgery Plastic and Reconstructive Surgery; ATTEND Surgery Plastic and Reconstructive Surgery
PROC: 0WP Anatomical Regions, General, Removal (ICD-10-PCS; principal; 2017-03-28 15:40)
DX: T83.718A Erosion of other implanted mesh to organ or tissue, initial encounter (principal); I43 Cardiomyopathy in diseases classified elsewhere; I50.32 Chronic diastolic (congestive) heart failure; I11.0 Hypertensive heart disease with heart failure; E66.01 Morbid (severe) obesity due to excess calories; K66.0 Peritoneal adhesions (postprocedural) (postinfection); E11.9 Type 2 diabetes mellitus without complications; F03.90 Unspecified dementia, unspecified severity, without behavioral disturbance, psychotic disturbance, mood disturbance, and anxiety; E78.5 Hyperlipidemia, unspecified; G47.30 Sleep apnea, unspecified; I25.10 Atherosclerotic heart disease of native coronary artery without angina pectoris; F41.9 Anxiety disorder, unspecified; G89.4 Chronic pain syndrome; K40.90 Unilateral inguinal hernia, without obstruction or gangrene, not specified as recurrent; Z96.651 Presence of right artificial knee joint; Z79.4 Long term (current) use of insulin; Z79.82 Long term (current) use of aspirin; Z79.899 Other long term (current) drug therapy; Z80.42 Family history of malignant neoplasm of prostate; Z80.43 Family history of malignant neoplasm of testis; Z82.49 Family history of ischemic heart disease and other diseases of the circulatory system; Z85.46 Personal history of malignant neoplasm of prostate; Z95.1 Presence of aortocoronary bypass graft; Z88.0 Allergy status to penicillin; Z88.3 Allergy status to other anti-infective agents; Z91.041 Radiographic dye allergy status; Z53.31 Laparoscopic surgical procedure converted to open procedure
CPT/HCPCS: 88300

== ENCOUNTER 2017-06-23 20:22 | Emergency (ER) | payer MEDICARE, BC ==
[2017-06-23] MEDS ORDERED: SODIUM CHLORIDE 0.9% 500 ML IV STA (21:02)
[2017-06-23] MEDS ORDERED: ONDANSETRON 4 MG/2 ML VIAL IVP STA (21:03)
[2017-06-23] MEDS ORDERED: MORPHINE SULFATE 4 MG/0.8 ML SYRINGE (INJ) IVP STA (21:03)
--- NOTE | 2017-06-23 21:07 | ED ---
Abdominal Pain HPI - General Chief Complaint: Abdominal Pain Stated Complaint: abd pain Time Seen by Provider: 06/23/17 20:42 Source: patient Mode of arrival: wheelchair Limitations: no limitations - History of Present Illness Initial Comments: 77-year-old male patient presents to the emergency department today at the request of his primary care physician for evaluation of right lower quadrant abdominal pain. Patient has an extensive past medical history includes a multiple abdominal surgeries for hernias and adhesions. Patient states he has had the pain to the right lower quadrant on and off for the last couple of months however over the last 2 days the pain has become significantly worse. Patient states that his pain medication is not helping. States that the pain does radiate a rate around into his back. Walking makes the pain worse. Patient denies any nausea, vomiting, constipation, diarrhea, fever, chills, hematuria, dysuria, urinary frequency, or urinary urgency. Patient denies any recent rash, shortness breath, chest pain, back pain, numbness, tingling, dizziness, weakness, headache, visual changes, or any other complaints. - Related Data Home Medications Medication Instructions Recorded Confirmed INSULIN LISPRO (humaLOG) [humaLOG] See Protocol SQ QID 11/07/13 06/23/17 amLODIPine [Norvasc] 10 mg PO W/SUPPER 11/07/13 06/23/17 Amiodarone [Cordarone] 200 mg PO W/SUPPER 03/23/15 06/23/17 Aspirin [Adult Low Dose Aspirin EC] 81 mg PO W/SUPPER 03/23/15 06/23/17 Cholecalciferol [Vitamin D3] 1,000 unit PO W/SUPPER 07/14/15 06/23/17 Insulin Glargine [Lantus] 40 unit SQ QAM 07/14/15 06/23/17 Baclofen 10 mg PO HS 10/08/16 06/23/17 Pravastatin Sodium [Pravachol] 40 mg PO DAILY 10/08/16 06/23/17 L.acidoph,Paracasei, B.lactis 1 cap PO DAILY 01/25/17 06/23/17 [Probiotic] Gabapentin [Neurontin] 400 mg PO Q8HR PRN 02/23/17 06/23/17 HYDROcodone/APAP 10-325MG [[place] 1 tab PO Q6H PRN 02/23/17 06/23/17 10-325] Magnesium Hydroxide [Milk of 2,400 mg PO Q48H PRN 06/23/17 06/23/17 Magnesia Concentrate] Sulfamethox-Tmp 800-160Mg [Bactrim 1 tab PO Q12HR 06/23/17 06/23/17 DS 800-160 mg] Previous Rx's Medication Instructions Recorded traMADol HCL [Ultram] 50 mg PO Q4HR PRN #30 tab 02/25/17 Allergies Allergy/AdvReac Type Severity Reaction Status Date / Time Iodinated Contrast- Oral and Allergy Rash/Hives Verified 06/23/17 20:46 IV Dye iodine Allergy Rash/Hives Verified 06/23/17 20:46 Penicillins Allergy Swelling Verified 06/23/17 20:46 duloxetine [From Cymbalta] AdvReac PRICKLY Verified 06/23/17 20:46 FEELING IN HEAD povidone-iodine AdvReac Itchy,red Verified 06/23/17 20:46 [From Betadine] skin soap [From Betadine] AdvReac Itchy,red Verified 06/23/17 20:46 skin Surgical Scrub Allergy Unknown Itching, Uncoded 06/23/17 20:37 Red skin Review of Systems ROS Statement: Those systems with pertinent positive or pertinent negative responses have been documented in the HPI. ROS Other: All systems not noted in ROS Statement are negative. Past Medical History Past Medical History: Coronary Artery Disease (CAD), Cancer, Diabetes Mellitus, Hyperlipidemia, Hypertension, Memory Impairment, Osteoarthritis (OA), Pneumonia , Prostate Disorder, Sleep Apnea/CPAP/BIPAP Additional Past Medical History / Comment(s): Prostate cancer-2010- tx with radiation. supposed to use CPAP. HAS ABD ADHESIONS, recent admission for abd. pain & pneumonia History of Any Multi-Drug Resistant Organisms: None Reported Past Surgical History: Appendectomy, Back Surgery, Cholecystectomy, Coronary Bypass/CABG, Heart Catheterization, Hernia Repair, Joint Replacement, Orthopedic Surgery Additional Past Surgical History / Comment(s): ORIF Rt Ankle. ORIF Rt Fibula Surgery. RT Knee Replacement. 2009 Triple CABG. Abdominal adhesions. Fatty tumor from neck. CTR jono. Abdominal surgery with mesh in 2001. Back nerve surgery. Rotator cuff-left shoulder. ING hernia repair w/ mesh. 3 fatty tumors removed 08/15/15 Past Anesthesia/Blood Transfusion Reactions: No Reported Reaction Past Psychological History: Anxiety Smoking Status: Never smoker Past Alcohol Use History: None Reported Past Drug Use History: None Reported - Past Family History Father History Unknown: Yes Family Medical History: Cancer Additional Family Medical History / Comment(s): PROSTATE CANCER Son(s) Family Medical History: Cancer Additional Family Medical History / Comment(s): TESTICULAR CANCER Mother Family Medical History: Coronary Artery Disease (CAD), Hypertension Sister(s) Family Medical History: Cancer General Exam Limitations: no limitations General appearance: alert, in no apparent distress, other (This is a well- developed, well-nourished elderly male patient in no acute distress. Vital signs upon presentation are temperature 97.9F, pulse 79, respirations 16, blood pressure 132/67, pulse ox 98% on room air.) Eye exam: Present: normal appearance, PERRL, EOMI. Absent: scleral icterus, conjunctival injection, periorbital swelling ENT exam: Present: normal exam, normal oropharynx, mucous membranes moist Respiratory exam: Present: normal lung sounds bilaterally. Absent: respiratory distress, wheezes, rales, rhonchi, stridor Cardiovascular Exam: Present: regular rate, normal rhythm, normal heart sounds. Absent: systolic murmur, diastolic murmur, rubs, gallop, clicks GI/Abdominal exam: Present: soft, normal bowel sounds. Absent: distended, tenderness, guarding, rebound, rigid Neurological exam: Present: alert, oriented X3, CN II-XII intact Psychiatric exam: Present: normal affect, normal mood Skin exam: Present: warm, dry, intact, normal color. Absent: rash Course Vital Signs 06/23/17 06/23/17 06/23/17 20:33 21:26 22:28 Temperature 97.9 F 97.2 F L 97.6 F Pulse Rate 79 70 62 Respiratory 16 18 14 Rate Blood Pressure 132/67 120/55 143/67 O2 Sat by Pulse 98 94 L 96 Oximetry 06/24/17 00:30 Temperature Pulse Rate 60 Respiratory 18 Rate Blood Pressure 111/51 O2 Sat by Pulse 98 Oximetry Medical Decision Making - Medical Decision Making 77-year-old male patient presents to the emergency department today for evaluation of right lower quadrant abdominal pain. Physical examination is relatively unremarkable. Patient is nontender to the abdomen. Patient's primary care physician did send him in for CT of the abdomen and pelvis. CT was obtained and showed no acute abnormalities. Did show some chronic surgical changes. Labs reviewed and were unremarkable. Patient's white blood cell count is normal. Patient is afebrile and vital signs are stable. Did discuss findings and results with the family. I did urge them to follow-up with both his primary care physician and his surgeon Dr. Christensen. They're educated regarding return parameters. They verbalize understanding and agree with this plan. - Lab Data Result diagrams: 06/23/17 21:45 06/23/17 21:45 Lab Results 06/23/17 06/23/17 06/23/17 Range/Units 21:45 21:45 21:45 WBC 7.0 (3.8-10.6) k/uL RBC 4.86 (4.30-5.90) m/uL Hgb 14.5 (13.0-17.5) gm/dL Hct 42.2 (39.0-53.0) % MCV 86.9 (80.0-100.0) fL MCH 29.8 (25.0-35.0) pg MCHC 34.3 (31.0-37.0) g/dL RDW 12.9 (11.5-15.5) % Plt Count 206 (150-450) k/uL Neutrophils % 60 % Lymphocytes % 27 % Monocytes % 7 % Eosinophils % 2 % Basophils % 1 % Neutrophils # 4.2 (1.3-7.7) k/uL Lymphocytes # 1.9 (1.0-4.8) k/uL Monocytes # 0.5 (0-1.0) k/uL Eosinophils # 0.2 (0-0.7) k/uL Basophils # 0.0 (0-0.2) k/uL Sodium 143 (137-145) mmol/L Potassium 4.1 (3.5-5.1) mmol/L Chloride 99 (98-107) mmol/L Carbon Dioxide 27 (22-30) mmol/L Anion Gap 17 mmol/L BUN 22 H (9-20) mg/dL Creatinine 0.90 (0.66-1.25) mg/dL Est GFR (CKD-EPI)AfAm >90 (>60 ml/min/1.73 sqM) Est GFR (CKD-EPI)NonAf 81 (>60 ml/min/1.73 sqM) Glucose 149 H (74-99) mg/dL Plasma Lactic Acid Ned 1.7 (0.7-2.0) mmol/L Calcium 9.8 (8.4-10.2) mg/dL Total Bilirubin 0.2 (0.2-1.3) mg/dL AST 25 (17-59) U/L ALT 27 (21-72) U/L Alkaline Phosphatase 72 (38-126) U/L Total Protein 6.9 (6.3-8.2) g/dL Albumin 4.5 (3.5-5.0) g/dL Amylase 35 (30-110) U/L Lipase 34 (23-300) U/L Urine Color Urine Appearance (Clear) Urine pH (5.0-8.0) Ur Specific [place] (1.001-1.035) Urine Protein (Negative) Urine Glucose (UA) (Negative) Urine Ketones (Negative) Urine Blood (Negative) Urine Nitrite (Negative) Urine Bilirubin (Negative) Urine Urobilinogen (<2.0) mg/dL Ur Leukocyte Esterase (Negative) 06/23/17 Range/Units 21:45 WBC (3.8-10.6) k/uL RBC (4.30-5.90) m/uL Hgb (13.0-17.5) gm/dL Hct (39.0-53.0) % MCV (80.0-100.0) fL MCH (25.0-35.0) pg MCHC (31.0-37.0) g/dL RDW (11.5-15.5) % Plt Count (150-450) k/uL Neutrophils % % Lymphocytes % % Monocytes % % Eosinophils % % Basophils % % Neutrophils # (1.3-7.7) k/uL Lymphocytes # (1.0-4.8) k/uL Monocytes # (0-1.0) k/uL Eosinophils # (0-0.7) k/uL Basophils # (0-0.2) k/uL Sodium (137-145) mmol/L Potassium (3.5-5.1) mmol/L Chloride (98-107) mmol/L Carbon Dioxide (22-30) mmol/L Anion Gap mmol/L BUN (9-20) mg/dL Creatinine (0.66-1.25) mg/dL Est GFR (CKD-EPI)AfAm (>60 ml/min/1.73 sqM) Est GFR (CKD-EPI)NonAf (>60 ml/min/1.73 sqM) Glucose (74-99) mg/dL Plasma Lactic Acid Ned (0.7-2.0) mmol/L Calcium (8.4-10.2) mg/dL Total Bilirubin (0.2-1.3) mg/dL AST (17-59) U/L ALT (21-72) U/L Alkaline Phosphatase (38-126) U/L Total Protein (6.3-8.2) g/dL Albumin (3.5-5.0) g/dL Amylase (30-110) U/L Lipase (23-300) U/L Urine Color Yellow Urine Appearance Clear (Clear) Urine pH 6.0 (5.0-8.0) Ur Specific [place] 1.012 (1.001-1.035) Urine Protein Negative (Negative) Urine Glucose (UA) Negative (Negative) Urine Ketones Negative (Negative) Urine Blood Negative (Negative) Urine Nitrite Negative (Negative) Urine Bilirubin Negative (Negative) Urine Urobilinogen <2.0 (<2.0) mg/dL Ur Leukocyte Esterase Negative (Negative) - Radiology Data Radiology results: report reviewed, image reviewed CT of the abdomen and pelvis was obtained with contrast. Report was reviewed in its entirety. Impression by Dr. Vick shows previous surgery. Cholecystectomy. Biliary tree is stable. Atherosclerotic vascular disease per no sign of acute abdomen. I see no adverse change compared to old computed tomography scan. Disposition Clinical Impression: Abdominal pain Disposition: HOME SELF-CARE Condition: Good Instructions: Abdominal Pain (ED) Additional Instructions: Follow-up with her primary care physician and your abdominal surgeon for further evaluation. Return here immediately for any new, worsening, or concerning symptoms. Is patient prescribed a controlled substance at d/c from ED?: No Referrals: Dean Evangelista MD [Primary Care Provider] - 1-2 days Loni Christensen MD [STAFF PHYSICIAN] - 1-2 days Time of Disposition: 00:43
[2017-06-23 21:55] LABS: Basophils % (A) 1 %; Eosinophils # (A) 0.2 k/uL (0-0.7); Eosinophils % (A) 2 %; HCT 42.2 % (39.0-53.0); HGB 14.5 gm/dL (13.0-17.5); Lymphocytes # (A) 1.9 k/uL (1.0-4.8); Lymphocytes % (A) 27 %; MCH 29.8 pg (25.0-35.0); MCHC 34.3 g/dL (31.0-37.0); MCV 86.9 fL (80.0-100.0); Mean Platelet Volume 9.3; Monocytes # (A) 0.5 k/uL (0-1.0); Monocytes % (A) 7 %; Neutrophils # (A) 4.2 k/uL (1.3-7.7); Neutrophils % (A) 60 %; Platelet Count 206 k/uL (150-450); RBC 4.86 m/uL (4.30-5.90); RDW 12.9 % (11.5-15.5)
[2017-06-23 21:56] LABS: Appearance,Urine Clear (Clear); Bilirubin,Urine Negative (Negative); Blood,Urine Negative (Negative); Color,Urine Yellow; Glucose,Urine (UA) Negative (Negative); Ketones,Urine Negative (Negative); Leukocyte Esterase,Urine Negative (Negative); Nitrite,Urine Negative (Negative); Protein,Urine Negative (Negative); Specific Gravity,Urine 1.012 (1.001-1.035); Urobilinogen,Urine <2.0 mg/dL (<2.0)
[2017-06-23 22:08] LABS: ALT 27 U/L (21-72); AST 25 U/L (17-59); Albumin 4.5 g/dL (3.5-5.0); Alkaline Phosphatase 72 U/L (38-126); Amylase 35 U/L (30-110); Anion Gap 17 mmol/L; Blood Urea Nitrogen 22 mg/dL (9-20); Calcium 9.8 mg/dL (8.4-10.2); Carbon Dioxide 27 mmol/L (22-30); Chloride 99 mmol/L (98-107); Glucose 149 mg/dL (74-99); Lipase 34 U/L (23-300); Potassium 4.1 mmol/L (3.5-5.1); Sodium 143 mmol/L (137-145); Total Bilirubin 0.2 mg/dL (0.2-1.3); Total Protein 6.9 g/dL (6.3-8.2)
--- NOTE | 2017-06-23 22:29 | XR ---
EXAMINATION TYPE: XR KUB DATE OF EXAM: 06/23/2017 COMPARISON: 04/30/2016 HISTORY: Abdominal pain TECHNIQUE: 2 views FINDINGS: There is no sign of intestinal obstruction or pneumoperitoneum. Fecal pattern is normal. Th ere is a 4 mm calcification over the right kidney. There is laminectomy defect in the lower lumbar s pine at 3 levels. I see no evidence of a mass. Lung bases are clear. IMPRESSION: Nonacute abdomen. No change compared to old exam.
[2017-06-23 22:32] VITALS: TEMP 97.6
[2017-06-23] MEDS ORDERED: RX INFO: IV CONTRAST WAS GIVEN 1 EACH MISC MISCELLANE PRN (22:56)
[2017-06-23] MEDS ORDERED: diphenhydrAMINE 50 MG/ML 1 ML VIAL IVP STA (22:56)
[2017-06-23] MEDS ORDERED: FAMOTIDINE 20 MG/2 ML VIAL IV STA (22:56)
[2017-06-23] MEDS ORDERED: methylPREDNISolone SOD SUCCI 125 MG/2 ML VIAL IV STA (22:56)
--- NOTE | 2017-06-24 00:30 | CT ---
EXAMINATION TYPE: CT abdomen pelvis w con DATE OF EXAM: 06/24/2017 COMPARISON: NONE HISTORY: Pt. has post op abdominal pain. right side lower abdomen CT DLP: 1385.50 mGycm Automated exposure control for dose reduction was used. TECHNIQUE: Helical acquisition of images was performed from the lung bases through the pelvis. CONTRAST: Performed without Oral Contrast and with IV Contrast, patient injected with 100 mL of Isovue 300. FINDINGS: Lung bases are clear. There is no pleural effusion. Heart size is normal. Liver spleen pancreas appear normal. Gallbladder is not seen. There is prominence of the common bile duct proximally but there is fairly normal appearance of the intrahepatic bile ducts. Distal common bile duct measures 8 mm. Common hepatic duct measures 1.7 cm. There is no adrenal mass. There are bilateral multiple renal cortical cysts. The largest is on the an terior left kidney and measures 2 cm. There is no hydronephrosis. Ureters are not dilated. There is n o retroperitoneal adenopathy. There are some surgical clips on the anterior abdominal wall. There is subcutaneous density over the right mid abdomen consistent with recent surgery. There is apparent mid line abdominal surgery incision. I see no intestinal wall thickening. There are no dilated loops. There is no sign of a bowel obstruct ion. Appendix is not seen. There is no sign of appendicitis. Abdominal aorta is atheromatous. There i s no evidence of aneurysm. There is multilevel spondylosis in the lumbar spine and multilevel laminectomy defect. I see no compr ession fracture. Prostate is enlarged with calcification. IMPRESSION: PREVIOUS SURGERY. CHOLECYSTECTOMY. BILIARY TREE IS STABLE. ATHEROSCLEROTIC VASCULAR DISEASE. NO SIGN OF AN ACUTE ABDOMEN. I SEE NO ADVERSE CHANGE COMPARED TO OLD CT SCAN.
[2017-06-24] MEDS ORDERED: MORPHINE SULFATE 4 MG/0.8 ML SYRINGE (INJ) IVP STA (00:42)
[2017-06-24 00:58] VITALS: BP 112/60; PULSE 93; RESP 20
== END 2017-06-24 00:58 | disposition home or self-care (01) ==
LOC: EC 20:22
DX: R10.31 Right lower quadrant pain (principal); E11.9 Type 2 diabetes mellitus without complications; E78.5 Hyperlipidemia, unspecified; M19.90 Unspecified osteoarthritis, unspecified site; I10 Essential (primary) hypertension; I25.10 Atherosclerotic heart disease of native coronary artery without angina pectoris; Z87.01 Personal history of pneumonia (recurrent); Z88.0 Allergy status to penicillin; Z88.8 Allergy status to other drugs, medicaments and biological substances; Z91.09 Other allergy status, other than to drugs and biological substances; Z91.048 Other nonmedicinal substance allergy status; Z79.899 Other long term (current) drug therapy; Z79.4 Long term (current) use of insulin; Z79.82 Long term (current) use of aspirin; Z98.890 Other specified postprocedural states; Z90.49 Acquired absence of other specified parts of digestive tract
CPT/HCPCS: 99284; 96374; 96375 ×4; 96376; 96361 ×2; 36415; 80053; 82150; 83605; 83690; 85025; 81003; 74018; 74177; J1200; J2930; J2405; Q9967; J2270 ×2

== ENCOUNTER 2017-07-14 11:22 | Emergency (ER) | payer MEDICARE, BC ==
[2017-07-14 13:06] LABS: Basophils # (A) 0.1 k/uL (0-0.2); Basophils % (A) 1 %; Eosinophils # (A) 0.1 k/uL (0-0.7); Eosinophils % (A) 1 %; HCT 44.5 % (39.0-53.0); HGB 15.2 gm/dL (13.0-17.5); Lymphocytes # (A) 1.6 k/uL (1.0-4.8); Lymphocytes % (A) 23 %; MCH 30.3 pg (25.0-35.0); MCHC 34.1 g/dL (31.0-37.0); MCV 88.9 fL (80.0-100.0); Mean Platelet Volume 8.8; Monocytes # (A) 0.5 k/uL (0-1.0); Monocytes % (A) 7 %; Neutrophils # (A) 4.6 k/uL (1.3-7.7); Neutrophils % (A) 66 %; Platelet Count 235 k/uL (150-450); RBC 5.01 m/uL (4.30-5.90); RDW 13.3 % (11.5-15.5)
[2017-07-14 13:14] LABS: ALT 44 U/L (21-72); AST 35 U/L (17-59); Albumin 4.5 g/dL (3.5-5.0); Alkaline Phosphatase 84 U/L (38-126); Amylase <30 U/L (30-110); Anion Gap 17 mmol/L; Blood Urea Nitrogen 20 mg/dL (9-20); Calcium 9.7 mg/dL (8.4-10.2); Carbon Dioxide 26 mmol/L (22-30); Chloride 98 mmol/L (98-107); Glucose 278 mg/dL (74-99); Lipase 21 U/L (23-300); Potassium 4.1 mmol/L (3.5-5.1); Sodium 141 mmol/L (137-145); Total Bilirubin 0.4 mg/dL (0.2-1.3); Total Protein 6.9 g/dL (6.3-8.2)
[2017-07-14 13:53] VITALS: RESP 18
[2017-07-14 14:43] LABS: Glucose,Whole Blood 247 mg/dL (75-99)
--- NOTE | 2017-07-14 15:24 | ED ---
General Adult HPI - General Chief complaint: Abdominal Pain Stated complaint: RT SIDE ABDOMINAL PAIN Time Seen by Provider: 07/14/17 13:52 Source: patient, family, RN notes reviewed Mode of arrival: wheelchair Limitations: no limitations - History of Present Illness Initial comments: 77-year-old male presents to the emergency department for a chief complaint of right groin pain. Patient states this has been ongoing for over a month. He was seen in the emergency department 3 weeks ago with a negative CT and KUB. Patient states after he urinates he feels as if he has to urinate more. Patient had mesh removed from the right groin where he had a hernia. Patient also has a history of prostate cancer for which he had radiation 4 years ago. Patient is having normal bowel movements with the last bowel movement being last night. Patient is passing gas. Patient denies abdominal pain besides right groin pain. Patient states denies any fevers or chills at home. Patient denies any confusion. Patient states he has an appointment with the urologist in 2 weeks. Patient did see his primary care provider who thought maybe it was related to hip pain. Patient has no other complaints at this time including shortness of breath, chest pain, abdominal pain, nausea or vomiting, headache, or visual changes. - Related Data Home Medications Medication Instructions Recorded Confirmed INSULIN LISPRO (humaLOG) [humaLOG] See Protocol SQ ACHS 11/07/13 07/14/17 amLODIPine [Norvasc] 10 mg PO W/SUPPER 11/07/13 07/14/17 Amiodarone [Cordarone] 200 mg PO W/SUPPER 03/23/15 07/14/17 Cholecalciferol [Vitamin D3] 1,000 unit PO W/SUPPER 07/14/15 07/14/17 Insulin Glargine [Lantus] 40 unit SQ QAM 07/14/15 07/14/17 Baclofen 10 mg PO HS 10/08/16 07/14/17 Gabapentin [Neurontin] 400 mg PO Q8HR 02/23/17 07/14/17 HYDROcodone/APAP 10-325MG [[place] 1 tab PO DAILY PRN 02/23/17 07/14/17 10-325] Aspirin 325 mg PO HS 07/14/17 07/14/17 Docusate [Colace] 100 mg PO HS 07/14/17 07/14/17 Donepezil [Aricept] 5 mg PO HS 07/14/17 07/14/17 Tamsulosin [Flomax] 0.4 mg PO HS 07/14/17 07/14/17 Allergies Allergy/AdvReac Type Severity Reaction Status Date / Time Iodinated Contrast- Oral and Allergy Rash/Hives Verified 07/14/17 14:59 IV Dye iodine Allergy Rash/Hives Verified 07/14/17 14:59 Penicillins Allergy Swelling Verified 07/14/17 14:59 duloxetine [From Cymbalta] AdvReac PRICKLY Verified 07/14/17 14:59 FEELING IN HEAD povidone-iodine AdvReac Itchy,red Verified 07/14/17 14:59 [From Betadine] skin soap [From Betadine] AdvReac Itchy,red Verified 07/14/17 14:59 skin Surgical Scrub Allergy Unknown Itching, Uncoded 07/14/17 11:27 Red skin Review of Systems ROS Statement: Those systems with pertinent positive or pertinent negative responses have been documented in the HPI. ROS Other: All systems not noted in ROS Statement are negative. Past Medical History Past Medical History: Coronary Artery Disease (CAD), Cancer, Diabetes Mellitus, Hyperlipidemia, Hypertension, Memory Impairment, Osteoarthritis (OA), Pneumonia , Prostate Disorder, Sleep Apnea/CPAP/BIPAP Additional Past Medical History / Comment(s): Prostate cancer-2010- tx with radiation. supposed to use CPAP. HAS ABD ADHESIONS, recent admission for abd. pain & pneumonia History of Any Multi-Drug Resistant Organisms: None Reported Past Surgical History: Appendectomy, Back Surgery, Cholecystectomy, Coronary Bypass/CABG, Heart Catheterization, Hernia Repair, Joint Replacement, Orthopedic Surgery Additional Past Surgical History / Comment(s): ORIF Rt Ankle. ORIF Rt Fibula Surgery. RT Knee Replacement. 2008 Triple CABG. Abdominal adhesions. Fatty tumor from neck. CTR jono. Abdominal surgery with mesh in 2001. Back nerve surgery. Rotator cuff-left shoulder. ING hernia repair w/ mesh. 3 fatty tumors removed 08/15/15 Past Anesthesia/Blood Transfusion Reactions: No Reported Reaction Past Psychological History: Anxiety Smoking Status: Never smoker Past Alcohol Use History: None Reported Past Drug Use History: None Reported - Past Family History Father History Unknown: Yes Family Medical History: Cancer Additional Family Medical History / Comment(s): PROSTATE CANCER Son(s) Family Medical History: Cancer Additional Family Medical History / Comment(s): TESTICULAR CANCER Mother Family Medical History: Coronary Artery Disease (CAD), Hypertension Sister(s) Family Medical History: Cancer General Exam Limitations: no limitations General appearance: alert, in no apparent distress ENT exam: Present: normal exam, normal oropharynx, mucous membranes moist, TM's normal bilaterally Neck exam: Present: normal inspection, full ROM. Absent: tenderness, meningismus, lymphadenopathy Respiratory exam: Present: normal lung sounds bilaterally. Absent: respiratory distress, wheezes, rales, rhonchi, stridor Cardiovascular Exam: Present: regular rate, normal rhythm, normal heart sounds. Absent: systolic murmur, diastolic murmur, rubs, gallop, clicks GI/Abdominal exam: Present: soft, tenderness (Mild tenderness in the right groin.), normal bowel sounds. Absent: distended, guarding, rebound, rigid exam: Present: normal inspection. Absent: testicular tenderness, urethral discharge, scrotal swelling, vertical testicular lie, circumcision Extremities exam: Present: full ROM (Full range of motion of the right hip including flexion and extension abduction and adduction. Pain in the groin is not elicited by hip movement at all.). Absent: tenderness (No tenderness in the right hip.) Psychiatric exam: Present: normal affect, normal mood Course Vital Signs 07/14/17 07/14/17 07/14/17 11:25 13:52 17:14 Temperature 97.8 F 97 F L Pulse Rate 85 70 83 Respiratory 20 18 18 Rate Blood Pressure 124/62 173/79 111/71 O2 Sat by Pulse 98 95 95 Oximetry Medical Decision Making - Medical Decision Making 77-year-old male presents to the emergency department for a chief complaint of right groin pain times one month. Patient recently had a negative CT and KUB in the emergency department. Patient states he feels as if he is not voiding urine completely. Patient has a history of prostate cancer and inguinal hernia repair. Patient had surgery in February to remove hernia mesh. He followed up with Dr. Arroyo since his last ER visit for this and was told to follow-up with Dr. Marurfo. He has an appointment with Dr. Marrufo (urology) in 2 weeks. Patient is having bowel movements normally and passing gas. On exam patient has very mild right groin tenderness. No testicular tenderness. Tenderness not increased with range of motion of the right hip. Vitals within normal limit in the emergency department. CBC and CMP are unremarkable. Glucose 247. Urinalysis shows no sign of infection and small blood. Negative ketones. Ultrasound of the kidneys and bladder showed no bladder distension. Bladder is empty. There is a left renal cyst that appears stable from recent computed tomography scan. Patient will attend his appointment with the urologist as scheduled. He will follow-up with his primary care provider in one to 2 days if needed. He will return to the emergency department if he has any worsening symptoms. He has [place] at home as well as tramadol. On discharge family members requested morphine for his pain. - Lab Data Result diagrams: 07/14/17 12:45 07/14/17 12:45 Lab Results 07/14/17 07/14/17 07/14/17 Range/Units 12:45 12:45 14:42 WBC 7.0 (3.8-10.6) k/uL RBC 5.01 (4.30-5.90) m/uL Hgb 15.2 (13.0-17.5) gm/dL Hct 44.5 (39.0-53.0) % MCV 88.9 (80.0-100.0) fL MCH 30.3 (25.0-35.0) pg MCHC 34.1 (31.0-37.0) g/dL RDW 13.3 (11.5-15.5) % Plt Count 235 (150-450) k/uL Neutrophils % 66 % Lymphocytes % 23 % Monocytes % 7 % Eosinophils % 1 % Basophils % 1 % Neutrophils # 4.6 (1.3-7.7) k/uL Lymphocytes # 1.6 (1.0-4.8) k/uL Monocytes # 0.5 (0-1.0) k/uL Eosinophils # 0.1 (0-0.7) k/uL Basophils # 0.1 (0-0.2) k/uL Sodium 141 (137-145) mmol/L Potassium 4.1 (3.5-5.1) mmol/L Chloride 98 (98-107) mmol/L Carbon Dioxide 26 (22-30) mmol/L Anion Gap 17 mmol/L BUN 20 (9-20) mg/dL Creatinine 0.92 (0.66-1.25) mg/dL Est GFR (CKD-EPI)AfAm >90 (>60 ml/min/1.73 sqM) Est GFR (CKD-EPI)NonAf 79 (>60 ml/min/1.73 sqM) Glucose 278 H (74-99) mg/dL POC Glucose (mg/dL) 247 H (75-99) mg/dL POC Glu Pad Extractor Tender Holly Braun Calcium 9.7 (8.4-10.2) mg/dL Total Bilirubin 0.4 (0.2-1.3) mg/dL AST 35 (17-59) U/L ALT 44 (21-72) U/L Alkaline Phosphatase 84 (38-126) U/L Total Protein 6.9 (6.3-8.2) g/dL Albumin 4.5 (3.5-5.0) g/dL Amylase <30 L (30-110) U/L Lipase 21 L (23-300) U/L Urine Color Urine Appearance (Clear) Urine pH (5.0-8.0) Ur Specific [place] (1.001-1.035) Urine Protein (Negative) Urine Glucose (UA) (Negative) Urine Ketones (Negative) Urine Blood (Negative) Urine Nitrite (Negative) Urine Bilirubin (Negative) Urine Urobilinogen (<2.0) mg/dL Ur Leukocyte Esterase (Negative) Urine RBC (0-5) /hpf Urine WBC (0-5) /hpf Hyaline Casts (0-2) /lpf Urine Mucus (None) /hpf 07/14/ Range/Units 16:10 WBC (3.8-10.6) k/uL RBC (4.30-5.90) m/uL Hgb (13.0-17.5) gm/dL Hct (39.0-53.0) % MCV (80.0-100.0) fL MCH (25.0-35.0) pg MCHC (31.0-37.0) g/dL RDW (11.5-15.5) % Plt Count (150-450) k/uL Neutrophils % % Lymphocytes % % Monocytes % % Eosinophils % % Basophils % % Neutrophils # (1.3-7.7) k/uL Lymphocytes # (1.0-4.8) k/uL Monocytes # (0-1.0) k/uL Eosinophils # (0-0.7) k/uL Basophils # (0-0.2) k/uL Sodium (137-145) mmol/L Potassium (3.5-5.1) mmol/L Chloride (98-107) mmol/L Carbon Dioxide (22-30) mmol/L Anion Gap mmol/L BUN (9-20) mg/dL Creatinine (0.66-1.25) mg/dL Est GFR (CKD-EPI)AfAm (>60 ml/min/1.73 sqM) Est GFR (CKD-EPI)NonAf (>60 ml/min/1.73 sqM) Glucose (74-99) mg/dL POC Glucose (mg/dL) (75-99) mg/dL POC Glu Pad Extractor Tender ID Calcium (8.4-10.2) mg/dL Total Bilirubin (0.2-1.3) mg/dL AST (17-59) U/L ALT (21-72) U/L Alkaline Phosphatase (38-126) U/L Total Protein (6.3-8.2) g/dL Albumin (3.5-5.0) g/dL Amylase (30-110) U/L Lipase (23-300) U/L Urine Color Yellow Urine Appearance Clear (Clear) Urine pH 5.5 (5.0-8.0) Ur Specific [place] 1.013 (1.001-1.035) Urine Protein Trace H (Negative) Urine Glucose (UA) Trace H (Negative) Urine Ketones Negative (Negative) Urine Blood Small H (Negative) Urine Nitrite Negative (Negative) Urine Bilirubin Negative (Negative) Urine Urobilinogen <2.0 (<2.0) mg/dL Ur Leukocyte Esterase Negative (Negative) Urine RBC 7 H (0-5) /hpf Urine WBC 3 (0-5) /hpf Hyaline Casts 12 H (0-2) /lpf Urine Mucus Rare H (None) /hpf Disposition Clinical Impression: Groin pain Disposition: HOME SELF-CARE Condition: Good Instructions: Groin Pain (ED) Additional Instructions: Please take home pain meds for pain relief. Please return to the emergency department if symptoms worsen. Please follow-up with the urologist at your scheduled appointment in 3 weeks. He may follow up with primary care in 1-2 days if needed. Is patient prescribed a controlled substance at d/c from ED?: No Referrals: Dean Evangelista MD [Primary Care Provider] - 1-2 days Time of Disposition: 16:54
--- NOTE | 2017-07-14 15:32 | US ---
EXAMINATION TYPE: US renals and bladder DATE OF EXAM: 07/14/2017 COMPARISON: 06/24/2017 CLINICAL HISTORY: Pain. EXAM MEASUREMENTS: Right Kidney: 10.3 x 4.9 x 5.2 cm Left Kidney: 10.1 x 5.7 x 5.1 cm Right Kidney: No hydronephrosis or masses seen Left Kidney: 2.5 x 2.2 x 2.1 cm cyst upper pole,medial; 1.3 x 1.2 x 1.3 cm cyst lower pole, medial Bladder: blader is empty; wall appers thickened, however, cannot fully evauate No hydronephrosis or nephrolithiasis. IMPRESSION: 1. Bladder is nondistended and therefore nondiagnostic. 2. Left renal cysts appear stable from recent CT scan.
[2017-07-14] MEDS ORDERED: LIDOCAINE URO-JET JELLY 2% 5 ML KIT URETHRAL ONE (15:51)
[2017-07-14 16:19] LABS: Appearance,Urine Clear (Clear); Bilirubin,Urine Negative (Negative); Blood,Urine Small (Negative); Color,Urine Yellow; Glucose,Urine (UA) Trace (Negative); Hyaline Casts,Urine 12 /lpf (0-2); Ketones,Urine Negative (Negative); Leukocyte Esterase,Urine Negative (Negative); Mucus,Urine Rare /hpf; Nitrite,Urine Negative (Negative); PH, Urine 5.5 (5.0-8.0); Protein,Urine Trace (Negative); RBC,Urine 7 /hpf (0-5); Specific Gravity,Urine 1.013 (1.001-1.035); Urobilinogen,Urine <2.0 mg/dL (<2.0); WBC,Urine 3 /hpf (0-5)
[2017-07-14] MEDS ORDERED: MORPHINE SULFATE 4 MG/ML SYRINGE IVP STA (16:54)
[2017-07-14] MEDS ORDERED: MORPHINE SULFATE 4 MG/ML SYRINGE IM STA (17:10)
[2017-07-14 17:15] VITALS: BP 111/71; PULSE 83; TEMP 97
== END 2017-07-14 17:16 | disposition home or self-care (01) ==
LOC: EC 11:22
DX: R10.30 Lower abdominal pain, unspecified (principal); I25.10 Atherosclerotic heart disease of native coronary artery without angina pectoris; E11.9 Type 2 diabetes mellitus without complications; E78.5 Hyperlipidemia, unspecified; I10 Essential (primary) hypertension; Z85.46 Personal history of malignant neoplasm of prostate; Z95.1 Presence of aortocoronary bypass graft; Z88.0 Allergy status to penicillin; Z88.8 Allergy status to other drugs, medicaments and biological substances; Z91.041 Radiographic dye allergy status; Z91.048 Other nonmedicinal substance allergy status; Z79.4 Long term (current) use of insulin; Z79.82 Long term (current) use of aspirin; Z79.899 Other long term (current) drug therapy
CPT/HCPCS: 99284 ×2; 96372 ×2; 51798; 36415; 93005; 80053; 82150; 83690; 85025; 81001; 76770; J2270

== ENCOUNTER 2017-08-03 11:06 | Emergency (ER) | payer MEDICARE, BC ==
[2017-08-03] MEDS ORDERED: KETOROLAC 30 MG/ML 1 ML VIAL IVP STA (11:52)
[2017-08-03] MEDS ORDERED: SODIUM CHLORIDE 0.9% 1,000 ML IV STA (11:52)
--- NOTE | 2017-08-03 11:56 | ED ---
Abdominal Pain HPI - General Chief Complaint: Abdominal Pain Stated Complaint: Abdominal pain Time Seen by Provider: 08/03/17 11:35 Source: patient, family, RN notes reviewed Mode of arrival: ambulatory Limitations: no limitations - History of Present Illness Initial Comments: This is a 76-year-old male with a history of multiple abdominal surgeries including cholecystectomy and appendectomy and mesh as well as adhesions who states he had the onset of sharp right flank pain radiating across his abdomen and down toward his bladder over last day or so. No fevers chills or sweats no hematuria he does state his urine stream has changed the last couple days risk was more frequently and less urine. No prior history kidney stones. No other modifying factors at this time. MD Complaint: abdominal pain, flank pain - Related Data Home Medications Medication Instructions Recorded Confirmed INSULIN LISPRO (humaLOG) [humaLOG] See Protocol SQ ACHS 11/07/13 08/03/17 amLODIPine [Norvasc] 10 mg PO W/SUPPER 11/07/13 08/03/17 Amiodarone [Cordarone] 200 mg PO W/SUPPER 03/23/15 08/03/17 Cholecalciferol [Vitamin D3] 1,000 unit PO W/SUPPER 07/14/15 08/03/17 Insulin Glargine [Lantus] 40 unit SQ QAM 07/14/15 08/03/17 Baclofen 10 mg PO HS 10/08/16 08/03/17 Gabapentin [Neurontin] 400 mg PO Q8HR 02/23/17 08/03/17 HYDROcodone/APAP 10-325MG [[place] 1 tab PO DAILY PRN 02/23/17 08/03/17 10-325] Docusate [Colace] 100 mg PO HS 07/14/17 08/03/17 Tamsulosin [Flomax] 0.4 mg PO HS 07/14/17 08/03/17 Meclizine [Antivert] 25 mg PO DAILY PRN 08/03/17 08/03/17 Pravastatin Sodium [Pravachol] 40 mg PO DAILY 08/03/17 08/03/17 Allergies Allergy/AdvReac Type Severity Reaction Status Date / Time Iodinated Contrast- Oral and Allergy Rash/Hives Verified 08/03/17 12:03 IV Dye iodine Allergy Rash/Hives Verified 08/03/17 12:03 Penicillins Allergy Swelling Verified 08/03/17 12:03 duloxetine [From Cymbalta] AdvReac PRICKLY Verified 08/03/17 12:03 FEELING IN HEAD povidone-iodine AdvReac Itchy,red Verified 08/03/17 12:03 [From Betadine] skin soap [From Betadine] AdvReac Itchy,red Verified 08/03/17 12:03 skin Surgical Scrub Allergy Unknown Itching, Uncoded 08/03/17 11:26 Red skin Review of Systems ROS Statement: Those systems with pertinent positive or pertinent negative responses have been documented in the HPI. ROS Other: All systems not noted in ROS Statement are negative. Past Medical History Past Medical History: Coronary Artery Disease (CAD), Cancer, Diabetes Mellitus, Hyperlipidemia, Hypertension, Memory Impairment, Osteoarthritis (OA), Pneumonia , Prostate Disorder, Sleep Apnea/CPAP/BIPAP Additional Past Medical History / Comment(s): Prostate cancer-2010- tx with radiation. supposed to use CPAP. HAS ABD ADHESIONS, recent admission for abd. pain & pneumonia History of Any Multi-Drug Resistant Organisms: None Reported Past Surgical History: Appendectomy, Back Surgery, Cholecystectomy, Coronary Bypass/CABG, Heart Catheterization, Hernia Repair, Joint Replacement, Orthopedic Surgery Additional Past Surgical History / Comment(s): ORIF Rt Ankle. ORIF Rt Fibula Surgery. RT Knee Replacement. 2008 Triple CABG. Abdominal adhesions. Fatty tumor from neck. CTR jono. Abdominal surgery with mesh in 2001. Back nerve surgery. Rotator cuff-left shoulder. ING hernia repair w/ mesh. 3 fatty tumors removed 08/15/15 Past Anesthesia/Blood Transfusion Reactions: No Reported Reaction Past Psychological History: Anxiety Smoking Status: Never smoker Past Alcohol Use History: None Reported Past Drug Use History: None Reported - Past Family History Father History Unknown: Yes Family Medical History: Cancer Additional Family Medical History / Comment(s): PROSTATE CANCER Son(s) Family Medical History: Cancer Additional Family Medical History / Comment(s): TESTICULAR CANCER Mother Family Medical History: Coronary Artery Disease (CAD), Hypertension Sister(s) Family Medical History: Cancer General Exam - General Exam Comments Initial Comments: This is a well-developed well-nourished awake alert oriented times 3 male Limitations: no limitations General appearance: alert, in no apparent distress Head exam: Present: atraumatic, normocephalic, normal inspection Eye exam: Present: normal appearance, PERRL, EOMI. Absent: scleral icterus, conjunctival injection, periorbital swelling ENT exam: Present: normal exam, mucous membranes moist Neck exam: Present: normal inspection. Absent: tenderness, meningismus, lymphadenopathy Respiratory exam: Present: normal lung sounds bilaterally. Absent: respiratory distress, wheezes, rales, rhonchi, stridor Cardiovascular Exam: Present: regular rate, normal rhythm, normal heart sounds. Absent: systolic murmur, diastolic murmur, rubs, gallop, clicks GI/Abdominal exam: Present: soft, normal bowel sounds, other (Multiple surgical scars). Absent: distended, tenderness, guarding, rebound, rigid Rectal exam: Present: deferred exam: Present: normal inspection. Absent: circumcision Extremities exam: Present: normal inspection, normal capillary refill, other ( Splint on the right foot due to foot). Absent: tenderness, pedal edema, joint swelling, calf tenderness Back exam: Present: normal inspection, full ROM. Absent: CVA tenderness (R), CVA tenderness (L) Neurological exam: Present: alert, oriented X3, CN II-XII intact Psychiatric exam: Present: normal affect, normal mood Skin exam: Present: warm, dry, intact, normal color. Absent: rash Course Vital Signs 08/03/17 08/03/17 08/03/17 11:20 13:00 14:33 Temperature 97.9 F Pulse Rate 79 59 L 67 Respiratory 17 18 18 Rate Blood Pressure 125/70 110/55 117/67 O2 Sat by Pulse 95 95 96 Oximetry Medical Decision Making - Medical Decision Making The patient is feeling improved at the medication was given he will be going home he does have Toradol as well as Catron at home. He does have an appointment to see urology on the this month he is encouraged to continue with this. His doctor and return when necessary - Lab Data Result diagrams: 08/03/17 11:55 08/03/17 11:55 Lab Results 08/03/17 08/03/17 08/03/17 Range/Units 11:55 11:55 11:55 WBC 9.7 (3.8-10.6) k/uL RBC 4.77 (4.30-5.90) m/uL Hgb 14.7 (13.0-17.5) gm/dL Hct 42.5 (39.0-53.0) % MCV 89.1 (80.0-100.0) fL MCH 30.9 (25.0-35.0) pg MCHC 34.6 (31.0-37.0) g/dL RDW 13.2 (11.5-15.5) % Plt Count 203 (150-450) k/uL Neutrophils % 71 % Lymphocytes % 19 % Monocytes % 6 % Eosinophils % 1 % Basophils % 1 % Neutrophils # 6.8 (1.3-7.7) k/uL Lymphocytes # 1.9 (1.0-4.8) k/uL Monocytes # 0.6 (0-1.0) k/uL Eosinophils # 0.1 (0-0.7) k/uL Basophils # 0.1 (0-0.2) k/uL Sodium 138 (137-145) mmol/L Potassium 4.1 (3.5-5.1) mmol/L Chloride 97 L (98-107) mmol/L Carbon Dioxide 29 (22-30) mmol/L Anion Gap 12 mmol/L BUN 28 H (9-20) mg/dL Creatinine 1.12 (0.66-1.25) mg/dL Est GFR (CKD-EPI)AfAm 72 (>60 ml/min/1.73 sqM) Est GFR (CKD-EPI)NonAf 62 (>60 ml/min/1.73 sqM) Glucose 237 H (74-99) mg/dL Plasma Lactic Acid Ned 1.2 (0.7-2.0) mmol/L Calcium 9.7 (8.4-10.2) mg/dL Total Bilirubin 0.5 (0.2-1.3) mg/dL AST 27 (17-59) U/L ALT 35 (21-72) U/L Alkaline Phosphatase 71 (38-126) U/L Total Protein 6.9 (6.3-8.2) g/dL Albumin 4.5 (3.5-5.0) g/dL Amylase 32 (30-110) U/L Lipase 19 L (23-300) U/L Urine Color Urine Appearance (Clear) Urine pH (5.0-8.0) Ur Specific [place] (1.001-1.035) Urine Protein (Negative) Urine Glucose (UA) (Negative) Urine Ketones (Negative) Urine Blood (Negative) Urine Nitrite (Negative) Urine Bilirubin (Negative) Urine Urobilinogen (<2.0) mg/dL Ur Leukocyte Esterase (Negative) 08/03/17 Range/Units 13:09 WBC (3.8-10.6) k/uL RBC (4.30-5.90) m/uL Hgb (13.0-17.5) gm/dL Hct (39.0-53.0) % MCV (80.0-100.0) fL MCH (25.0-35.0) pg MCHC (31.0-37.0) g/dL RDW (11.5-15.5) % Plt Count (150-450) k/uL Neutrophils % % Lymphocytes % % Monocytes % % Eosinophils % % Basophils % % Neutrophils # (1.3-7.7) k/uL Lymphocytes # (1.0-4.8) k/uL Monocytes # (0-1.0) k/uL Eosinophils # (0-0.7) k/uL Basophils # (0-0.2) k/uL Sodium (137-145) mmol/L Potassium (3.5-5.1) mmol/L Chloride (98-107) mmol/L Carbon Dioxide (22-30) mmol/L Anion Gap mmol/L BUN (9-20) mg/dL Creatinine (0.66-1.25) mg/dL Est GFR (CKD-EPI)AfAm (>60 ml/min/1.73 sqM) Est GFR (CKD-EPI)NonAf (>60 ml/min/1.73 sqM) Glucose (74-99) mg/dL Plasma Lactic Acid Ned (0.7-2.0) mmol/L Calcium (8.4-10.2) mg/dL Total Bilirubin (0.2-1.3) mg/dL AST (17-59) U/L ALT (21-72) U/L Alkaline Phosphatase (38-126) U/L Total Protein (6.3-8.2) g/dL Albumin (3.5-5.0) g/dL Amylase (30-110) U/L Lipase (23-300) U/L Urine Color Yellow Urine Appearance Clear (Clear) Urine pH 6.0 (5.0-8.0) Ur Specific [place] 1.012 (1.001-1.035) Urine Protein Negative (Negative) Urine Glucose (UA) 1+ H (Negative) Urine Ketones Negative (Negative) Urine Blood Negative (Negative) Urine Nitrite Negative (Negative) Urine Bilirubin Negative (Negative) Urine Urobilinogen <2.0 (<2.0) mg/dL Ur Leukocyte Esterase Negative (Negative) - Radiology Data Radiology results: report reviewed (I did review the imaging and report no ascending obstruction punctate obstructing 1-2 mm I seen in the lower pole right kidney. Some circumferential urinary bladder wall thickening), image reviewed Disposition Clinical Impression: Abdominal pain, Renal colic on right side Disposition: HOME SELF-CARE Condition: Good Instructions: Abdominal Pain (ED), Renal Colic (ED) Is patient prescribed a controlled substance at d/c from ED?: No Referrals: Dean Evangelista MD [Primary Care Provider] - 1-2 days
[2017-08-03 12:12] LABS: Basophils # (A) 0.1 k/uL (0-0.2); Basophils % (A) 1 %; Eosinophils # (A) 0.1 k/uL (0-0.7); Eosinophils % (A) 1 %; HCT 42.5 % (39.0-53.0); HGB 14.7 gm/dL (13.0-17.5); Lymphocytes # (A) 1.9 k/uL (1.0-4.8); Lymphocytes % (A) 19 %; MCH 30.9 pg (25.0-35.0); MCHC 34.6 g/dL (31.0-37.0); MCV 89.1 fL (80.0-100.0); Mean Platelet Volume 8.6; Monocytes # (A) 0.6 k/uL (0-1.0); Monocytes % (A) 6 %; Neutrophils # (A) 6.8 k/uL (1.3-7.7); Neutrophils % (A) 71 %; Platelet Count 203 k/uL (150-450); RBC 4.77 m/uL (4.30-5.90); RDW 13.2 % (11.5-15.5); WBC 9.7 k/uL (3.8-10.6)
[2017-08-03 12:17] LABS: Albumin 4.5 g/dL (3.5-5.0); Calcium 9.7 mg/dL (8.4-10.2); Potassium 4.1 mmol/L (3.5-5.1); Total Bilirubin 0.5 mg/dL (0.2-1.3); Total Protein 6.9 g/dL (6.3-8.2)
--- NOTE | 2017-08-03 13:04 | XR ---
EXAMINATION TYPE: XR KUB DATE OF EXAM: 08/03/2017 COMPARISON: NONE HISTORY: Pain TECHNIQUE: KUB image of the abdomen is obtained FINDINGS: Small bowel demonstrates no evidence for dilatation or air fluid levels. Gas and fecal material is seen in non-distended colon. No convincing evidence for pneumoperitoneum. No unusual calcifications. The lung bases are clear. The osseous structures are intact. IMPRESSION: 1. Overall nonobstructive bowel gas pattern.
[2017-08-03 13:16] LABS: Appearance,Urine Clear (Clear); Bilirubin,Urine Negative (Negative); Blood,Urine Negative (Negative); Color,Urine Yellow; Glucose,Urine (UA) 1+ (Negative); Ketones,Urine Negative (Negative); Leukocyte Esterase,Urine Negative (Negative); Nitrite,Urine Negative (Negative); Protein,Urine Negative (Negative); Specific Gravity,Urine 1.012 (1.001-1.035); Urobilinogen,Urine <2.0 mg/dL (<2.0)
[2017-08-03 13:21] VITALS: RESP 18
--- NOTE | 2017-08-03 14:00 | CT ---
EXAMINATION TYPE: CT abdomen pelvis wo con DATE OF EXAM: 08/03/2017 COMPARISON: 06/24/2017 HISTORY: Right lower quadrant pain CT DLP: 1370 mGycm Automated exposure control for dose reduction was used. TECHNIQUE: Helical acquisition of images was performed from the lung bases through the pelvis. FINDINGS: LUNG BASES: 2 mm left basilar subpleural pulmonary nodule on series 4 image 28 is stable from the jonathan or and likely benign. Small posterior diaphragmatic hernia seen on the left on coronal series 6 image 73. LIVER/GB: Punctate calcifications are favored to be within the hepatic parenchyma but appear close to the left hepatic bile ducts. Additional calcification against the serosal surface of the left hepati c lobe is also seen and therefore granulomatous changes are favored. Gallbladder surgically absent wi th persistent postsurgical dilatation of the common bile duct. Unenhanced liver is of unremarkable mo rphology. PANCREAS: Parenchymal atrophy is noted. No ductal dilatation. SPLEEN: No significant abnormality is seen. ADRENALS: 1.2 cm right adrenal gland nodule has an average Hounsfield unit of -13 compatible with a l ipid rich adenoma or myelolipoma (benign etiologies). Left adrenal gland is unremarkable. KIDNEYS: 2.1 cm left renal cyst is present. Additionally left lower pole 1.0 cm renal cyst is seen. T here is a punctate nonobstructing 1 to 2 mm right lower pole renal calculus. No hydronephrosis of eit her kidney. FREE AIR: No free air is visualized ADENOPATHY: No greater than 1 cm short axis lymph nodes are seen within the abdomen or pelvis. REPRODUCTIVE ORGANS: Prostate gland is heterogenous containing central zone calcifications. Left ingu inal fat filled hernia is present. URINARY BLADDER: There is circumferential urinary bladder wall thickening that could relate to incom plete distention although correlation with urinalysis is recommended. OSSEOUS STRUCTURES: There is postsurgical change of the lumbar spine, diffuse osseous demineralizati on, and extensive degenerative changes. Partial visualization of median sternotomy wires. BOWEL: No significant abnormality is seen. No dilated loops of small or large bowel. No pericolonic or perienteric fat stranding. OTHER: Prior ventral hernia repair has been performed with diastases and abutting small bowel on seri es 3 image 93 right paracentrally. There is a subcutaneous area of fat stranding with soft tissue den sity in the right lower quadrant abutting the skin surface there was seen on the prior 06/24/2017 and the exam of 02/23/2017. This could relate to chronic hematoma/scarring from postsurgical change. Exte nsive atherosclerosis is seen of the abdominal aorta and its branches. IMPRESSION: 1. NO EVIDENCE OF BOWEL OBSTRUCTION. PRIOR VENTRAL HERNIA REPAIR WITH ABUTTING LOOPS OF SMALL BOWEL. PERSISTENT RIGHT MID ABDOMINAL SUBCUTANEOUS SOFT TISSUE DENSITY THAT MAY REPRESENT AN AREA OF SCARRIN G UNCHANGED FROM 02/23/2017. 2. PUNCTATE NONOBSTRUCTING 1 TO 2 MM RIGHT LOWER POLE RENAL CALCULUS. 3. CIRCUMFERENTIAL URINARY BLADDER WALL THICKENING THAT LIKELY RELATE TO INCOMPLETE DISTENTION ALTHOU GH CORRELATION WITH URINALYSIS IS RECOMMENDED.
[2017-08-03] MEDS ORDERED: fentaNYL (PF) 50 MCG/ML 2 ML AMP IV STA (14:32)
[2017-08-03 16:14] VITALS: BP 135/64; PULSE 60; TEMP 98.3
== END 2017-08-03 16:00 | disposition home or self-care (01) ==
LOC: EC 11:06
DX: N23 Unspecified renal colic (principal); I25.10 Atherosclerotic heart disease of native coronary artery without angina pectoris; E78.5 Hyperlipidemia, unspecified; E11.9 Type 2 diabetes mellitus without complications; I10 Essential (primary) hypertension; N42.9 Disorder of prostate, unspecified; G47.30 Sleep apnea, unspecified; Z99.89 Dependence on other enabling machines and devices; F41.9 Anxiety disorder, unspecified; Z85.46 Personal history of malignant neoplasm of prostate; Z79.4 Long term (current) use of insulin; Z79.899 Other long term (current) drug therapy; Z88.0 Allergy status to penicillin; Z91.041 Radiographic dye allergy status; Z88.8 Allergy status to other drugs, medicaments and biological substances; Z91.09 Other allergy status, other than to drugs and biological substances; Z95.1 Presence of aortocoronary bypass graft; Z96.651 Presence of right artificial knee joint; Z90.49 Acquired absence of other specified parts of digestive tract; Z95.818 Presence of other cardiac implants and grafts
CPT/HCPCS: 99284; 96374; 96375; 96361 ×4; 36415; 80053; 82150; 83605; 83690; 85025; 81003; 74018; 74176; J3010; J1885

== ENCOUNTER 2017-08-07 21:46 | Emergency (ER) | payer MEDICARE, BC ==
[2017-08-07 21:55] VITALS: TEMP 97.9
[2017-08-07] MEDS ORDERED: diphenhydrAMINE 50 MG/ML 1 ML VIAL IVP STA (22:12)
[2017-08-07] MEDS ORDERED: methylPREDNISolone SOD SUCCI 125 MG/2 ML VIAL IV STA (22:12)
[2017-08-07] MEDS ORDERED: FAMOTIDINE 20 MG/2 ML VIAL IV STA (22:12)
[2017-08-07] MEDS ORDERED: MORPHINE SULFATE 2 MG/ML SYRINGE IV STA (22:12)
[2017-08-07] MEDS ORDERED: SODIUM CHLORIDE 0.9% 1,000 ML IV STA (22:12)
[2017-08-07 22:48] LABS: Basophils % (A) 1 %; Eosinophils # (A) 0.1 k/uL (0-0.7); Eosinophils % (A) 2 %; HCT 42.1 % (39.0-53.0); HGB 14.9 gm/dL (13.0-17.5); Lymphocytes # (A) 1.5 k/uL (1.0-4.8); Lymphocytes % (A) 21 %; MCH 31.9 pg (25.0-35.0); MCHC 35.3 g/dL (31.0-37.0); MCV 90.3 fL (80.0-100.0); Mean Platelet Volume 8.6; Monocytes # (A) 0.6 k/uL (0-1.0); Monocytes % (A) 8 %; Neutrophils # (A) 4.6 k/uL (1.3-7.7); Neutrophils % (A) 65 %; Platelet Count 200 k/uL (150-450); RBC 4.67 m/uL (4.30-5.90); RDW 13.4 % (11.5-15.5); WBC 7.1 k/uL (3.8-10.6)
[2017-08-07 22:57] LABS: Albumin 4.3 g/dL (3.5-5.0); Calcium 9.4 mg/dL (8.4-10.2); Potassium 4.3 mmol/L (3.5-5.1); Total Bilirubin 0.2 mg/dL (0.2-1.3); Total Protein 6.7 g/dL (6.3-8.2)
--- NOTE | 2017-08-07 23:16 | XR ---
EXAMINATION TYPE: XR KUB DATE OF EXAM: 08/07/2017 COMPARISON: 08/03/2017 HISTORY: Abdominal pain TECHNIQUE: 2 upright views FINDINGS: There is no sign of intestinal obstruction or pneumoperitoneum. Fecal pattern is normal. Th ere is multilevel lumbar laminectomy. There is no sign of a mass. Lung bases are clear. There is stab le 4 mm calcification over the right upper quadrant. IMPRESSION: Nonacute abdomen. No change.
--- NOTE | 2017-08-07 23:41 | ED ---
General Adult HPI - General Chief complaint: Abdominal Pain Stated complaint: Abdominal Pain Time Seen by Provider: 08/07/17 22:12 Source: patient, RN notes reviewed, old records reviewed Mode of arrival: wheelchair Limitations: no limitations - History of Present Illness Initial comments: This is a 77-year-old male the ER for evaluation. Patient does say for evasive Doppler pain right lower quadrant bowel pain without pain radiating to groin. Patient is had months of this abdominal pain. Patient unsure of cause. Patient is calm. Medical history of multiple prior evaluations for this abdominal pain. Different testing. Patient states no cause has been found. No nausea no vomiting no fevers. No diarrhea. Patient is at this time asymptomatic without abdominal pain which is concerned of cause when he does have his abdominal pain. - Related Data Home Medications Medication Instructions Recorded Confirmed INSULIN LISPRO (humaLOG) [humaLOG] See Protocol SQ ACHS 11/07/13 08/08/17 amLODIPine [Norvasc] 10 mg PO W/SUPPER 11/07/13 08/08/17 Amiodarone [Cordarone] 200 mg PO W/SUPPER 03/23/15 08/08/17 Cholecalciferol [Vitamin D3] 1,000 unit PO W/SUPPER 07/14/15 08/08/17 Insulin Glargine [Lantus] 40 unit SQ QAM 07/14/15 08/08/17 Baclofen 10 mg PO HS 10/08/16 08/08/17 Gabapentin [Neurontin] 400 mg PO Q8HR 02/23/17 08/08/17 HYDROcodone/APAP 10-325MG [[place] 1 tab PO DAILY PRN 02/23/17 08/08/17 10-325] Docusate [Colace] 100 mg PO HS 07/14/17 08/08/17 Tamsulosin [Flomax] 0.4 mg PO HS 07/14/17 08/08/17 Meclizine [Antivert] 25 mg PO DAILY PRN 08/03/17 08/08/17 Pravastatin Sodium [Pravachol] 40 mg PO DAILY 08/03/17 08/08/17 Allergies Allergy/AdvReac Type Severity Reaction Status Date / Time Iodinated Contrast- Oral and Allergy Rash/Hives Verified 08/08/17 14:16 IV Dye iodine Allergy Rash/Hives Verified 08/08/17 14:16 Penicillins Allergy Swelling Verified 08/08/17 14:16 duloxetine [From Cymbalta] AdvReac PRICKLY Verified 08/08/17 14:16 FEELING IN HEAD povidone-iodine AdvReac Itchy,red Verified 08/08/17 14:16 [From Betadine] skin soap [From Betadine] AdvReac Itchy,red Verified 08/08/17 14:16 skin Surgical Scrub Allergy Unknown Itching, Uncoded 08/08/17 14:02 Red skin Review of Systems ROS Statement: Those systems with pertinent positive or pertinent negative responses have been documented in the HPI. ROS Other: All systems not noted in ROS Statement are negative. Past Medical History Past Medical History: Coronary Artery Disease (CAD), Cancer, Diabetes Mellitus, Hyperlipidemia, Hypertension, Memory Impairment, Osteoarthritis (OA), Pneumonia , Prostate Disorder, Sleep Apnea/CPAP/BIPAP Additional Past Medical History / Comment(s): Prostate cancer-2010- tx with radiation. supposed to use CPAP. HAS ABD ADHESIONS, recent admission for abd. pain & pneumonia History of Any Multi-Drug Resistant Organisms: None Reported Past Surgical History: Appendectomy, Back Surgery, Cholecystectomy, Coronary Bypass/CABG, Heart Catheterization, Hernia Repair, Joint Replacement, Orthopedic Surgery Additional Past Surgical History / Comment(s): ORIF Rt Ankle. ORIF Rt Fibula Surgery. RT Knee Replacement. 2008 Triple CABG. Abdominal adhesions. Fatty tumor from neck. CTR jono. Abdominal surgery with mesh in 2001. Back nerve surgery. Rotator cuff-left shoulder. ING hernia repair w/ mesh. 3 fatty tumors removed 08/15/15 Past Anesthesia/Blood Transfusion Reactions: No Reported Reaction Past Psychological History: Anxiety Smoking Status: Never smoker Past Alcohol Use History: None Reported Past Drug Use History: None Reported - Past Family History Father History Unknown: Yes Family Medical History: Cancer Additional Family Medical History / Comment(s): PROSTATE CANCER Son(s) Family Medical History: Cancer Additional Family Medical History / Comment(s): TESTICULAR CANCER Mother Family Medical History: Coronary Artery Disease (CAD), Hypertension Sister(s) Family Medical History: Cancer General Exam Limitations: no limitations General appearance: alert, in no apparent distress Head exam: Present: atraumatic, normocephalic, normal inspection Eye exam: Present: normal appearance, PERRL, EOMI. Absent: scleral icterus, conjunctival injection, periorbital swelling ENT exam: Present: normal exam, mucous membranes moist Neck exam: Present: normal inspection. Absent: tenderness, meningismus, lymphadenopathy Respiratory exam: Present: normal lung sounds bilaterally. Absent: respiratory distress, wheezes, rales, rhonchi, stridor Cardiovascular Exam: Present: regular rate, normal rhythm, normal heart sounds. Absent: systolic murmur, diastolic murmur, rubs, gallop, clicks GI/Abdominal exam: Present: soft, normal bowel sounds. Absent: distended, tenderness, guarding, rebound, rigid Extremities exam: Present: normal inspection, full ROM, normal capillary refill. Absent: tenderness, pedal edema, joint swelling, calf tenderness Back exam: Present: normal inspection Neurological exam: Present: alert, oriented X3, CN II-XII intact Psychiatric exam: Present: normal affect, normal mood Skin exam: Present: warm, dry, intact, normal color. Absent: rash Course Vital Signs 08/07/17 08/08/17 21:51 01:46 Temperature 97.9 F Pulse Rate 82 66 Respiratory 18 16 Rate Blood Pressure 119/71 125/60 O2 Sat by Pulse 97 96 Oximetry Medical Decision Making - Medical Decision Making 77 female the ER for evaluation of bowel pain. A she is now pain is nonspecific without tenderness. No diarrhea no nausea vomiting no fevers. Patient can be discharged home - Lab Data Result diagrams: 08/07/17 22:39 08/07/17 22:39 Lab Results 08/07/17 08/07/17 08/07/17 Range/Units 22:39 22:39 22:39 WBC 7.1 (3.8-10.6) k/uL RBC 4.67 (4.30-5.90) m/uL Hgb 14.9 (13.0-17.5) gm/dL Hct 42.1 (39.0-53.0) % MCV 90.3 (80.0-100.0) fL MCH 31.9 (25.0-35.0) pg MCHC 35.3 (31.0-37.0) g/dL RDW 13.4 (11.5-15.5) % Plt Count 200 (150-450) k/uL Neutrophils % 65 % Lymphocytes % 21 % Monocytes % 8 % Eosinophils % 2 % Basophils % 1 % Neutrophils # 4.6 (1.3-7.7) k/uL Lymphocytes # 1.5 (1.0-4.8) k/uL Monocytes # 0.6 (0-1.0) k/uL Eosinophils # 0.1 (0-0.7) k/uL Basophils # 0.0 (0-0.2) k/uL Sodium 142 (137-145) mmol/L Potassium 4.3 (3.5-5.1) mmol/L Chloride 99 (98-107) mmol/L Carbon Dioxide 28 (22-30) mmol/L Anion Gap 15 mmol/L BUN 24 H (9-20) mg/dL Creatinine 1.20 (0.66-1.25) mg/dL Est GFR (CKD-EPI)AfAm 66 (>60 ml/min/1.73 sqM) Est GFR (CKD-EPI)NonAf 57 (>60 ml/min/1.73 sqM) Glucose 222 H (74-99) mg/dL Plasma Lactic Acid Ned 1.5 (0.7-2.0) mmol/L Calcium 9.4 (8.4-10.2) mg/dL Total Bilirubin 0.2 (0.2-1.3) mg/dL AST 26 (17-59) U/L ALT 35 (21-72) U/L Alkaline Phosphatase 69 (38-126) U/L Total Protein 6.7 (6.3-8.2) g/dL Albumin 4.3 (3.5-5.0) g/dL Amylase 33 (30-110) U/L Lipase 30 (23-300) U/L Urine Color Urine Appearance (Clear) Urine pH (5.0-8.0) Ur Specific [place] (1.001-1.035) Urine Protein (Negative) Urine Glucose (UA) (Negative) Urine Ketones (Negative) Urine Blood (Negative) Urine Nitrite (Negative) Urine Bilirubin (Negative) Urine Urobilinogen (<2.0) mg/dL Ur Leukocyte Esterase (Negative) 08/08/17 Range/Units 00:00 WBC (3.8-10.6) k/uL RBC (4.30-5.90) m/uL Hgb (13.0-17.5) gm/dL Hct (39.0-53.0) % MCV (80.0-100.0) fL MCH (25.0-35.0) pg MCHC (31.0-37.0) g/dL RDW (11.5-15.5) % Plt Count (150-450) k/uL Neutrophils % % Lymphocytes % % Monocytes % % Eosinophils % % Basophils % % Neutrophils # (1.3-7.7) k/uL Lymphocytes # (1.0-4.8) k/uL Monocytes # (0-1.0) k/uL Eosinophils # (0-0.7) k/uL Basophils # (0-0.2) k/uL Sodium (137-145) mmol/L Potassium (3.5-5.1) mmol/L Chloride (98-107) mmol/L Carbon Dioxide (22-30) mmol/L Anion Gap mmol/L BUN (9-20) mg/dL Creatinine (0.66-1.25) mg/dL Est GFR (CKD-EPI)AfAm (>60 ml/min/1.73 sqM) Est GFR (CKD-EPI)NonAf (>60 ml/min/1.73 sqM) Glucose (74-99) mg/dL Plasma Lactic Acid Ned (0.7-2.0) mmol/L Calcium (8.4-10.2) mg/dL Total Bilirubin (0.2-1.3) mg/dL AST (17-59) U/L ALT (21-72) U/L Alkaline Phosphatase (38-126) U/L Total Protein (6.3-8.2) g/dL Albumin (3.5-5.0) g/dL Amylase (30-110) U/L Lipase (23-300) U/L Urine Color Light Yellow Urine Appearance Clear (Clear) Urine pH 6.5 (5.0-8.0) Ur Specific [place] 1.005 (1.001-1.035) Urine Protein Negative (Negative) Urine Glucose (UA) Trace H (Negative) Urine Ketones Negative (Negative) Urine Blood Negative (Negative) Urine Nitrite Negative (Negative) Urine Bilirubin Negative (Negative) Urine Urobilinogen <2.0 (<2.0) mg/dL Ur Leukocyte Esterase Negative (Negative) - Radiology Data Radiology results: report reviewed (X-ray KUB is negative), image reviewed Disposition Clinical Impression: Abdominal pain, RLQ abdominal pain, Groin pain Disposition: HOME SELF-CARE Condition: Good Instructions: Abdominal Pain (ED) Is patient prescribed a controlled substance at d/c from ED?: No Referrals: Dean Evangelista MD [Primary Care Provider] - 1-2 days
[2017-08-08 00:12] LABS: Appearance,Urine Clear (Clear); Bilirubin,Urine Negative (Negative); Blood,Urine Negative (Negative); Color,Urine Light Yellow; Glucose,Urine (UA) Trace (Negative); Ketones,Urine Negative (Negative); Leukocyte Esterase,Urine Negative (Negative); Nitrite,Urine Negative (Negative); PH, Urine 6.5 (5.0-8.0); Protein,Urine Negative (Negative); Specific Gravity,Urine 1.005 (1.001-1.035); Urobilinogen,Urine <2.0 mg/dL (<2.0)
[2017-08-08 01:52] VITALS: BP 125/60; PULSE 66; RESP 16
== END 2017-08-08 01:52 | disposition home or self-care (01) ==
LOC: EC 21:46
DX: R10.31 Right lower quadrant pain (principal); I25.10 Atherosclerotic heart disease of native coronary artery without angina pectoris; E11.9 Type 2 diabetes mellitus without complications; E78.5 Hyperlipidemia, unspecified; I10 Essential (primary) hypertension; G47.30 Sleep apnea, unspecified; F41.9 Anxiety disorder, unspecified; Z99.89 Dependence on other enabling machines and devices; Z85.46 Personal history of malignant neoplasm of prostate; Z90.49 Acquired absence of other specified parts of digestive tract; Z95.1 Presence of aortocoronary bypass graft; Z96.651 Presence of right artificial knee joint; Z98.890 Other specified postprocedural states; Z79.4 Long term (current) use of insulin; Z79.899 Other long term (current) drug therapy; Z88.0 Allergy status to penicillin; Z88.8 Allergy status to other drugs, medicaments and biological substances; Z91.041 Radiographic dye allergy status; Z91.048 Other nonmedicinal substance allergy status
CPT/HCPCS: 36415; 80053; 82150; 83605; 83690; 85025; 81003; 87086; 74018; 99284; 96374; 96375 ×3; 96361 ×3; J1200; J2930; J2270; 80048; 82009; 96360

== ENCOUNTER 2017-08-08 13:57 | Emergency (ER) | payer MEDICARE, BC ==
--- NOTE | 2017-08-08 14:11 | ED ---
General Adult HPI - General Chief complaint: Recheck/Abnormal Lab/Rx Stated complaint: High Bloodsugar Time Seen by Provider: 08/08/17 14:04 Source: patient, RN notes reviewed, old records reviewed Mode of arrival: wheelchair Limitations: no limitations - History of Present Illness Initial comments: 77 male presenting with elevated blood sugar. Patient does have history of diabetes. He is on a sliding scale as well as 40 units of Lantus which she takes in the morning. He did take his Lantus this morning however he took it later that he normally does. No other change in diet or insulin dosing. He is on no oral hypoglycemic medications. Patient has no other complaints. No chest pain or shortness of breath. No abdominal pain. No dysuria or polyuria. No polydipsia. Blood sugar does normally run slightly high for this patient typically around 200. This morning it was 500 on 2 different meters - Related Data Home Medications Medication Instructions Recorded Confirmed INSULIN LISPRO (humaLOG) [humaLOG] See Protocol SQ ACHS 11/07/13 08/08/17 amLODIPine [Norvasc] 10 mg PO W/SUPPER 11/07/13 08/08/17 Amiodarone [Cordarone] 200 mg PO W/SUPPER 03/23/15 08/08/17 Cholecalciferol [Vitamin D3] 1,000 unit PO W/SUPPER 07/14/15 08/08/17 Insulin Glargine [Lantus] 40 unit SQ QAM 07/14/15 08/08/17 Baclofen 10 mg PO HS 10/08/16 08/08/17 Gabapentin [Neurontin] 400 mg PO Q8HR 02/23/17 08/08/17 HYDROcodone/APAP 10-325MG [[place] 1 tab PO DAILY PRN 02/23/17 08/08/17 10-325] Docusate [Colace] 100 mg PO HS 07/14/17 08/08/17 Tamsulosin [Flomax] 0.4 mg PO HS 07/14/17 08/08/17 Meclizine [Antivert] 25 mg PO DAILY PRN 08/03/17 08/08/17 Pravastatin Sodium [Pravachol] 40 mg PO DAILY 08/03/17 08/08/17 Allergies Allergy/AdvReac Type Severity Reaction Status Date / Time Iodinated Contrast- Oral and Allergy Rash/Hives Verified 08/08/17 14:16 IV Dye iodine Allergy Rash/Hives Verified 08/08/17 14:16 Penicillins Allergy Swelling Verified 08/08/17 14:16 duloxetine [From Cymbalta] AdvReac PRICKLY Verified 08/08/17 14:16 FEELING IN HEAD povidone-iodine AdvReac Itchy,red Verified 08/08/17 14:16 [From Betadine] skin soap [From Betadine] AdvReac Itchy,red Verified 08/08/17 14:16 skin Surgical Scrub Allergy Unknown Itching, Uncoded 08/08/17 14:02 Red skin Review of Systems ROS Statement: Those systems with pertinent positive or pertinent negative responses have been documented in the HPI. ROS Other: All systems not noted in ROS Statement are negative. Past Medical History Past Medical History: Coronary Artery Disease (CAD), Cancer, Diabetes Mellitus, Hyperlipidemia, Hypertension, Memory Impairment, Osteoarthritis (OA), Pneumonia , Prostate Disorder, Sleep Apnea/CPAP/BIPAP Additional Past Medical History / Comment(s): Prostate cancer-2010- tx with radiation. supposed to use CPAP. HAS ABD ADHESIONS, recent admission for abd. pain & pneumonia History of Any Multi-Drug Resistant Organisms: None Reported Past Surgical History: Appendectomy, Back Surgery, Cholecystectomy, Coronary Bypass/CABG, Heart Catheterization, Hernia Repair, Joint Replacement, Orthopedic Surgery Additional Past Surgical History / Comment(s): ORIF Rt Ankle. ORIF Rt Fibula Surgery. RT Knee Replacement. 2008 Triple CABG. Abdominal adhesions. Fatty tumor from neck. CTR jono. Abdominal surgery with mesh in 2001. Back nerve surgery. Rotator cuff-left shoulder. ING hernia repair w/ mesh. 3 fatty tumors removed 08/15/15 Past Anesthesia/Blood Transfusion Reactions: No Reported Reaction Past Psychological History: Anxiety Smoking Status: Never smoker Past Alcohol Use History: None Reported Past Drug Use History: None Reported - Past Family History Father History Unknown: Yes Family Medical History: Cancer Additional Family Medical History / Comment(s): PROSTATE CANCER Son(s) Family Medical History: Cancer Additional Family Medical History / Comment(s): TESTICULAR CANCER Mother Family Medical History: Coronary Artery Disease (CAD), Hypertension Sister(s) Family Medical History: Cancer General Exam Limitations: no limitations General appearance: alert, in no apparent distress Head exam: Present: atraumatic, normocephalic Eye exam: Present: normal appearance, PERRL, EOMI ENT exam: Present: normal exam Neck exam: Present: normal inspection. Absent: tenderness Respiratory exam: Present: normal lung sounds bilaterally. Absent: respiratory distress, wheezes Cardiovascular Exam: Present: regular rate, normal rhythm GI/Abdominal exam: Present: soft. Absent: distended, tenderness Rectal exam: Present: deferred Extremities exam: Present: normal inspection. Absent: full ROM, tenderness, pedal edema Neurological exam: Present: alert, oriented X3, CN II-XII intact. Absent: motor sensory deficit Psychiatric exam: Present: normal affect, normal mood Skin exam: Present: warm, dry, intact. Absent: cyanosis, diaphoretic Course Vital Signs 08/08/17 08/08/17 13:59 15:01 Temperature 97.8 F Pulse Rate 86 79 Respiratory 18 18 Rate Blood Pressure 183/87 150/75 O2 Sat by Pulse 96 95 Oximetry Medical Decision Making - Medical Decision Making 77-year-old male with history of diabetes presents for elevated blood sugar. Blood sugar at home was 500. He is asymptomatic with the exception of some mild polyuria and polydipsia. Laboratory studies are obtained. He does have an elevated sugar at 467. On evaluation of medical record he was seen in the emergency department for abdominal pain yesterday and received a computed tomography scan which she was pretreated with methylprednisolone. This is likely the cause of his elevated blood sugars. Laboratory studies initially reveal anion gap of 20, glucose of 467, lactic acid of 3.8, urinalysis is 4+ glucose and trace ketones, acetone is negative. After 1 L of IV hydration patient's anion gap normalizes to 14. Sugar is improved at 367. Lactic acid is down trending at 3.3, this lactic acidosis is likely secondary to dehydration secondary to probably dysuria. Patient continues to have no complaints. He will monitor blood sugars at home. He will maintain oral hydration. Given the elevated lactic acid he is offered observation for continued IV hydration, however he feels he can tolerate liquids at home and would prefer discharge. Please return with worsening or changing symptoms. - Lab Data Result diagrams: 08/08/17 14:14 08/08/17 15:31 Lab Results 08/08/17 08/08/17 08/08/17 Range/Units 14:14 14:14 14:14 WBC 11.9 H (3.8-10.6) k/uL RBC 5.03 (4.30-5.90) m/uL Hgb 15.5 (13.0-17.5) gm/dL Hct 46.2 (39.0-53.0) % MCV 91.9 (80.0-100.0) fL MCH 30.8 (25.0-35.0) pg MCHC 33.6 (31.0-37.0) g/dL RDW 13.6 (11.5-15.5) % Plt Count 213 (150-450) k/uL Neutrophils % 88 % Lymphocytes % 9 % Monocytes % 2 % Eosinophils % 0 % Basophils % 0 % Neutrophils # 10.5 H (1.3-7.7) k/uL Lymphocytes # 1.1 (1.0-4.8) k/uL Monocytes # 0.3 (0-1.0) k/uL Eosinophils # 0.0 (0-0.7) k/uL Basophils # 0.0 (0-0.2) k/uL Sodium 142 (137-145) mmol/L Potassium 4.6 (3.5-5.1) mmol/L Chloride 100 (98-107) mmol/L Carbon Dioxide 22 (22-30) mmol/L Anion Gap 20 mmol/L BUN 29 H (9-20) mg/dL Creatinine 1.00 (0.66-1.25) mg/dL Est GFR (CKD-EPI)AfAm 82 (>60 ml/min/1.73 sqM) Est GFR (CKD-EPI)NonAf 71 (>60 ml/min/1.73 sqM) Glucose 467 H* (74-99) mg/dL Plasma Lactic Acid Ned 3.8 H* (0.7-2.0) mmol/L Calcium 10.2 (8.4-10.2) mg/dL Total Bilirubin 0.4 (0.2-1.3) mg/dL AST 31 (17-59) U/L ALT 31 (21-72) U/L Alkaline Phosphatase 79 (38-126) U/L Total Protein 7.6 (6.3-8.2) g/dL Albumin 5.0 (3.5-5.0) g/dL Urine Color Urine Appearance (Clear) Urine pH (5.0-8.0) Ur Specific [place] (1.001-1.035) Urine Protein (Negative) Urine Glucose (UA) (Negative) Urine Ketones (Negative) Urine Blood (Negative) Urine Nitrite (Negative) Urine Bilirubin (Negative) Urine Urobilinogen (<2.0) mg/dL Ur Leukocyte Esterase (Negative) Acetone, Qual Negative (Negative) 08/08/17 08/08/17 08/08/17 Range/Units 14:14 15:31 15:31 WBC (3.8-10.6) k/uL RBC (4.30-5.90) m/uL Hgb (13.0-17.5) gm/dL Hct (39.0-53.0) % MCV (80.0-100.0) fL MCH (25.0-35.0) pg MCHC (31.0-37.0) g/dL RDW (11.5-15.5) % Plt Count (150-450) k/uL Neutrophils % % Lymphocytes % % Monocytes % % Eosinophils % % Basophils % % Neutrophils # (1.3-7.7) k/uL Lymphocytes # (1.0-4.8) k/uL Monocytes # (0-1.0) k/uL Eosinophils # (0-0.7) k/uL Basophils # (0-0.2) k/uL Sodium 139 (137-145) mmol/L Potassium 3.9 (3.5-5.1) mmol/L Chloride 102 (98-107) mmol/L Carbon Dioxide 23 (22-30) mmol/L Anion Gap 14 mmol/L BUN 28 H (9-20) mg/dL Creatinine 0.95 (0.66-1.25) mg/dL Est GFR (CKD-EPI)AfAm 88 (>60 ml/min/1.73 sqM) Est GFR (CKD-EPI)NonAf 76 (>60 ml/min/1.73 sqM) Glucose 367 H (74-99) mg/dL Plasma Lactic Acid Ned 3.3 H* (0.7-2.0) mmol/L Calcium 9.2 (8.4-10.2) mg/dL Total Bilirubin (0.2-1.3) mg/dL AST (17-59) U/L ALT (21-72) U/L Alkaline Phosphatase (38-126) U/L Total Protein (6.3-8.2) g/dL Albumin (3.5-5.0) g/dL Urine Color Yellow Urine Appearance Clear (Clear) Urine pH 5.0 (5.0-8.0) Ur Specific [place] 1.020 (1.001-1.035) Urine Protein Negative (Negative) Urine Glucose (UA) 4+ H (Negative) Urine Ketones Trace H (Negative) Urine Blood Negative (Negative) Urine Nitrite Negative (Negative) Urine Bilirubin Negative (Negative) Urine Urobilinogen <2.0 (<2.0) mg/dL Ur Leukocyte Esterase Negative (Negative) Acetone, Qual (Negative) Disposition Clinical Impression: Hyperglycemia Disposition: HOME SELF-CARE Condition: Fair Instructions: Diabetic Hyperglycemia (ED), Dehydration (ED) Is patient prescribed a controlled substance at d/c from ED?: No Referrals: Dean Evangelista MD [Primary Care Provider] - 1-2 days Time of Disposition: 16:45
[2017-08-08 14:34] LABS: Appearance,Urine Clear (Clear); Bilirubin,Urine Negative (Negative); Blood,Urine Negative (Negative); Color,Urine Yellow; Glucose,Urine (UA) 4+ (Negative); Ketones,Urine Trace (Negative); Leukocyte Esterase,Urine Negative (Negative); Nitrite,Urine Negative (Negative); Protein,Urine Negative (Negative); Urobilinogen,Urine <2.0 mg/dL (<2.0)
[2017-08-08 14:35] LABS: Basophils % (A) 0 %; Eosinophils % (A) 0 %; HCT 46.2 % (39.0-53.0); HGB 15.5 gm/dL (13.0-17.5); Lymphocytes # (A) 1.1 k/uL (1.0-4.8); Lymphocytes % (A) 9 %; MCH 30.8 pg (25.0-35.0); MCHC 33.6 g/dL (31.0-37.0); MCV 91.9 fL (80.0-100.0); Mean Platelet Volume 8.5; Monocytes # (A) 0.3 k/uL (0-1.0); Monocytes % (A) 2 %; Neutrophils # (A) 10.5 k/uL (1.3-7.7); Neutrophils % (A) 88 %; Platelet Count 213 k/uL (150-450); RBC 5.03 m/uL (4.30-5.90); RDW 13.6 % (11.5-15.5); WBC 11.9 k/uL (3.8-10.6)
[2017-08-08 14:45] LABS: ALT 31 U/L (21-72); AST 31 U/L (17-59); Alkaline Phosphatase 79 U/L (38-126); Anion Gap 20 mmol/L; Blood Urea Nitrogen 29 mg/dL (9-20); Calcium 10.2 mg/dL (8.4-10.2); Carbon Dioxide 22 mmol/L (22-30); Chloride 100 mmol/L (98-107); Potassium 4.6 mmol/L (3.5-5.1); Sodium 142 mmol/L (137-145); Total Bilirubin 0.4 mg/dL (0.2-1.3); Total Protein 7.6 g/dL (6.3-8.2)
[2017-08-08] MEDS ORDERED: SODIUM CHLORIDE 0.9% 500 ML IV ONE ×2 (14:45→14:47)
[2017-08-08 14:48] LABS: Glucose 467 mg/dL (74-99)
[2017-08-08] MEDS ORDERED: INSULIN REGULAR 100 UNIT/ML VIAL IV ONE (14:48)
[2017-08-08 16:04] LABS: Calcium 9.2 mg/dL (8.4-10.2); Potassium 3.9 mmol/L (3.5-5.1)
[2017-08-08 16:59] VITALS: BP 141/78; PULSE 76; RESP 16; TEMP 97.9
== END 2017-08-08 16:58 | disposition home or self-care (01) ==
LOC: EC 13:57
DX: E11.65 Type 2 diabetes mellitus with hyperglycemia (principal); I25.10 Atherosclerotic heart disease of native coronary artery without angina pectoris; E78.5 Hyperlipidemia, unspecified; I10 Essential (primary) hypertension; M19.90 Unspecified osteoarthritis, unspecified site; Z95.1 Presence of aortocoronary bypass graft; Z85.46 Personal history of malignant neoplasm of prostate; Z88.0 Allergy status to penicillin; Z88.8 Allergy status to other drugs, medicaments and biological substances; Z91.041 Radiographic dye allergy status; Z91.048 Other nonmedicinal substance allergy status; Z79.4 Long term (current) use of insulin; Z79.891 Long term (current) use of opiate analgesic; Z79.899 Other long term (current) drug therapy
CPT/HCPCS: 36415; 80048; 80053; 81003; 82009; 83605; 85025; 96360; 99284

== ENCOUNTER 2018-02-14 14:35 | Emergency (ER) | payer MEDICARE, BC ==
--- NOTE | 2018-02-14 15:39 | ED ---
Male Urogenital HPI - General Chief complaint: Urogenital Stated complaint: groin pain Time Seen by Provider: 02/14/18 15:39 Source: patient, RN notes reviewed, old records reviewed Mode of arrival: wheelchair Limitations: no limitations - Related Data Home Medications Medication Instructions Recorded Confirmed INSULIN LISPRO (humaLOG) [humaLOG] See Protocol SQ ACHS 11/07/13 02/14/18 amLODIPine [Norvasc] 10 mg PO W/SUPPER 11/07/13 02/14/18 Amiodarone [Cordarone] 200 mg PO W/SUPPER 03/23/15 02/14/18 Cholecalciferol [Vitamin D3] 1,000 unit PO W/SUPPER 07/14/15 02/14/18 Insulin Glargine [Lantus] 45 unit SQ QAM 07/14/15 02/14/18 HYDROcodone/APAP 10-325MG [[place] 1 tab PO DAILY PRN 02/23/17 02/14/18 10-325] Docusate [Colace] 100 mg PO HS PRN 07/14/17 02/14/18 Tamsulosin [Flomax] 0.4 mg PO HS 07/14/17 02/14/18 Meclizine [Antivert] 25 mg PO DAILY PRN 08/03/17 02/14/18 Pravastatin Sodium [Pravachol] 40 mg PO DAILY 08/03/17 02/14/18 Aspirin EC [Ecotrin Low Dose] 81 mg PO DAILY 02/14/18 02/14/18 Gabapentin 600 mg PO TID 02/14/18 02/14/18 traMADol HCL [Ultram] 50 mg PO Q4HR PRN 02/14/18 02/14/18 Allergies Allergy/AdvReac Type Severity Reaction Status Date / Time Iodinated Contrast- Oral and Allergy Rash/Hives Verified 02/14/18 15:46 IV Dye iodine Allergy Rash/Hives Verified 02/14/18 15:46 Penicillins Allergy Swelling Verified 02/14/18 15:46 duloxetine [From Cymbalta] AdvReac PRICKLY Verified 02/14/18 15:46 FEELING IN HEAD povidone-iodine AdvReac Itchy,red Verified 02/14/18 15:46 [From Betadine] skin soap [From Betadine] AdvReac Itchy,red Verified 02/14/18 15:46 skin Surgical Scrub Allergy Unknown Itching, Uncoded 02/14/18 15:09 Red skin Review of Systems ROS Statement: Those systems with pertinent positive or pertinent negative responses have been documented in the HPI. ROS Other: All systems not noted in ROS Statement are negative. Past Medical History Past Medical History: Coronary Artery Disease (CAD), Cancer, Diabetes Mellitus, Hyperlipidemia, Hypertension, Memory Impairment, Osteoarthritis (OA), Pneumonia , Prostate Disorder, Sleep Apnea/CPAP/BIPAP Additional Past Medical History / Comment(s): Prostate cancer-2011- tx with radiation. supposed to use CPAP. HAS ABD ADHESIONS, recent admission for abd. pain & pneumonia History of Any Multi-Drug Resistant Organisms: None Reported Past Surgical History: Appendectomy, Back Surgery, Cholecystectomy, Coronary Bypass/CABG, Heart Catheterization, Hernia Repair, Joint Replacement, Orthopedic Surgery Additional Past Surgical History / Comment(s): ORIF Rt Ankle. ORIF Rt Fibula Surgery. RT Knee Replacement. 2008 Triple CABG. Abdominal adhesions. Fatty tumor from neck. CTR jono. Abdominal surgery with mesh in 2001. Back nerve surgery. Rotator cuff-left shoulder. ING hernia repair w/ mesh. 3 fatty tumors removed 08/15/15 Past Anesthesia/Blood Transfusion Reactions: No Reported Reaction Past Psychological History: Anxiety Smoking Status: Never smoker Past Alcohol Use History: None Reported Past Drug Use History: None Reported - Past Family History Father History Unknown: Yes Family Medical History: Cancer Additional Family Medical History / Comment(s): PROSTATE CANCER Son(s) Family Medical History: Cancer Additional Family Medical History / Comment(s): TESTICULAR CANCER Mother Family Medical History: Coronary Artery Disease (CAD), Hypertension Sister(s) Family Medical History: Cancer General Exam Limitations: no limitations General appearance: alert, in no apparent distress Head exam: Present: atraumatic, normocephalic, normal inspection Eye exam: Present: normal appearance, PERRL, EOMI. Absent: scleral icterus, conjunctival injection, periorbital swelling ENT exam: Present: normal exam, mucous membranes moist Neck exam: Present: normal inspection. Absent: tenderness, meningismus, lymphadenopathy Respiratory exam: Present: normal lung sounds bilaterally. Absent: respiratory distress, wheezes, rales, rhonchi, stridor Cardiovascular Exam: Present: regular rate, normal rhythm, normal heart sounds. Absent: systolic murmur, diastolic murmur, rubs, gallop, clicks GI/Abdominal exam: Present: soft, normal bowel sounds. Absent: distended, tenderness, guarding, rebound, rigid Extremities exam: Present: normal inspection, full ROM, normal capillary refill. Absent: tenderness, pedal edema, joint swelling, calf tenderness Back exam: Present: normal inspection Neurological exam: Present: alert, oriented X3, CN II-XII intact Psychiatric exam: Present: normal affect, normal mood Skin exam: Present: warm, dry, intact, normal color. Absent: rash Course Vital Signs 02/14/18 15:05 Temperature 97.7 F Pulse Rate 71 Respiratory 16 Rate Blood Pressure 106/63 O2 Sat by Pulse 97 Oximetry - Reevaluation(s) Reevaluation #1: 02/14/18 17:03 medical record is reviewed Reevaluation #2: 02/14/18 17:03 patient has adequate pain control Medical Decision Making - Medical Decision Making 78 male to the ED c/o acute on chronic pelvic pain, pain is now controlled, history od MRI normal, doing outpatient pain management, no trauma US negative at this point, ok for discharge. - Radiology Data Radiology results: report reviewed (Ultrasound pelvis is negative for acute disease), image reviewed Disposition Clinical Impression: Abdominal pain Disposition: HOME SELF-CARE Condition: Good Instructions: Abdominal Pain (ED) Is patient prescribed a controlled substance at d/c from ED?: No Referrals: Dean Evangelista MD [Primary Care Provider] - 1-2 days
[2018-02-14] MEDS ORDERED: HYDROmorphone 1 MG/ML 1 ML SYRINGE IM STA (16:09)
--- NOTE | 2018-02-14 16:40 | US ---
EXAMINATION TYPE: US pelvic limited DATE OF EXAM: 02/14/2018 COMPARISON: NONE CLINICAL HISTORY: Pain. Patient feels pain right posterior hip. FINDINGS: The bladder was scanned. It was not well distended, but bilateral jets were seen. The RLQ was scanned with and without valsalva. There was no ultrasound evidence for hernia, and no ma ss encountered. The LLQ was scanned for comparison imaging. No definite abnormality seen. IMPRESSION: Negative examination.
[2018-02-14 17:31] VITALS: BP 135/79; PULSE 88; RESP 18; TEMP 97.2
== END 2018-02-14 17:30 | disposition home or self-care (01) ==
LOC: EC 14:35
DX: R10.30 Lower abdominal pain, unspecified (principal); R10.2 Pelvic and perineal pain; G89.29 Other chronic pain; I25.10 Atherosclerotic heart disease of native coronary artery without angina pectoris; E11.9 Type 2 diabetes mellitus without complications; E78.5 Hyperlipidemia, unspecified; I10 Essential (primary) hypertension; M19.90 Unspecified osteoarthritis, unspecified site; G47.30 Sleep apnea, unspecified; Z79.4 Long term (current) use of insulin; Z79.82 Long term (current) use of aspirin; Z79.899 Other long term (current) drug therapy; Z88.0 Allergy status to penicillin; Z91.041 Radiographic dye allergy status; Z91.048 Other nonmedicinal substance allergy status; Z88.8 Allergy status to other drugs, medicaments and biological substances; Z95.1 Presence of aortocoronary bypass graft; Z96.651 Presence of right artificial knee joint; Z85.46 Personal history of malignant neoplasm of prostate
CPT/HCPCS: 76857; 99284; 96372; J1170

== ENCOUNTER 2018-07-05 07:21 | Day surgery (SDC) | payer MEDICARE, BC ==
[2018-07-04 12:33] VITALS: BMI 33.2
[~2018-07-05 07:21] MED LIST changes: -HEPARIN SODIUM,PORCINE 5,000 UNIT/ML 1 ML VIAL SQ ONE; +LACTATED RINGERS 1,000 ML IV SCH; +LIDOCAINE 1% 20 ML VIAL (10MG/ML) FOR IV START INTRADERMA PRN; -MORPHINE SULFATE 4 MG/ML SYRINGE IV PRN
[2018-07-05 07:48] LABS: Glucose,Whole Blood 118 mg/dL (75-99)
[2018-07-05 07:50] VITALS: TEMP 98
--- NOTE | 2018-07-05 07:54 | P.GSHP ---
History of Present Illness H&P Date: 07/05/18 CHIEF COMPLAINT: Colon screen HISTORY OF PRESENT ILLNESS: The patient is a 78-year-old male who presents for colon screen. Lower endoscopy was offered for further evaluation and management. PAST MEDICAL HISTORY: Please see list. PAST SURGICAL HISTORY: Please see list. MEDICATIONS: Please see list. ALLERGIES: Please see list. SOCIAL HISTORY: No illicit drug use FAMILY HISTORY: No reports of Crohn disease or ulcerative colitis. REVIEW OF ORGAN SYSTEMS: CONSTITUTIONAL: No reports of fevers or chills. PHYSICAL EXAM: VITAL SIGNS: Stable GENERAL: Well-developed pleasant in no acute distress. HEENT: No scleral icterus. Extraocular movements grossly intact. Moist buccal mucosa. NECK: Supple without lymphadenopathy. CHEST: Unlabored respirations. Equal bilateral excursions. CARDIOVASCULAR: Regular rate and rhythm. Distal 2+ pulses. ABDOMEN: Soft, nontender, nondistended. MUSCULOSKELETAL: No clubbing, cyanosis, or edema. ASSESSMENT: 1. Colon screen. PLAN: 1. Recommend proceeding with a lower endoscopy Past Medical History Past Medical History: Coronary Artery Disease (CAD), Cancer, Diabetes Mellitus, Hyperlipidemia, Hypertension, Memory Impairment, Osteoarthritis (OA), Pneumonia, Prostate Disorder, Sleep Apnea/CPAP/BIPAP Additional Past Medical History / Comment(s): Prostate cancer-2010- tx with radiation. HAS ABD ADHESIONS, History of Any Multi-Drug Resistant Organisms: None Reported Past Surgical History: Appendectomy, Back Surgery, Cholecystectomy, Coronary Bypass/CABG, Heart Catheterization, Hernia Repair, Joint Replacement, Orthopedic Surgery Additional Past Surgical History / Comment(s): ORIF Rt Ankle. ORIF Rt Fibula Surgery. RT Knee Replacement. 2008 Triple CABG. Abdominal adhesions. Fatty tumor from neck. CTR jono. Abdominal surgery with mesh in 2001. Back nerve surgery. Rotator cuff-left shoulder. ING hernia repair w/ mesh. 3 fatty tumors removed 08/15/15, COLONOSCOPY Past Anesthesia/Blood Transfusion Reactions: No Reported Reaction Smoking Status: Never smoker - Past Family History Father History Unknown: Yes Family Medical History: Cancer Additional Family Medical History / Comment(s): PROSTATE CANCER Son(s) Family Medical History: Cancer Additional Family Medical History / Comment(s): TESTICULAR CANCER Mother Family Medical History: Coronary Artery Disease (CAD), Hypertension Sister(s) Family Medical History: Cancer Medications and Allergies Home Medications Medication Instructions Recorded Confirmed Type INSULIN LISPRO (humaLOG) [humaLOG] See Protocol SQ ACHS 11/07/13 07/04/18 History amLODIPine [Norvasc] 10 mg PO W/SUPPER 11/07/13 07/04/18 History Amiodarone [Cordarone] 200 mg PO W/SUPPER 03/23/15 07/04/18 History Cholecalciferol [Vitamin D3 (25 1,000 unit PO W/SUPPER 07/14/15 07/04/18 History Mcg = 1000 Iu)] Insulin Glargine [Lantus] 47 unit SQ QAM 07/14/15 07/04/18 History HYDROcodone/APAP 10-325MG [[place] 1 tab PO DAILY PRN 02/23/17 07/04/18 History 10-325] Docusate [Colace] 100 mg PO HS PRN 07/14/17 07/04/18 History Tamsulosin [Flomax] 0.4 mg PO HS 07/14/17 07/04/18 History Meclizine [Antivert] 25 mg PO DAILY PRN 08/03/17 07/04/18 History Pravastatin Sodium [Pravachol] 40 mg PO DAILY 08/03/17 07/04/18 History Gabapentin 600 mg PO TID 02/14/18 07/04/18 History traMADol HCL [Ultram] 50 mg PO Q4HR PRN 02/14/18 07/04/18 History Multivitamins, Thera [Multivitamin 1 each PO DAILY 07/04/18 07/04/18 History (formulary)] Prevagen 1 each PO DAILY 07/04/18 History Allergies Allergy/AdvReac Type Severity Reaction Status Date / Time Iodinated Contrast- Oral and Allergy Rash/Hives Verified 07/04/18 12:24 IV Dye iodine Allergy Rash/Hives Verified 07/04/18 12:24 Penicillins Allergy Swelling Verified 07/04/18 12:24 duloxetine [From Cymbalta] AdvReac PRICKLY Verified 07/04/18 12:24 FEELING IN HEAD povidone-iodine AdvReac Itchy,red Verified 07/04/18 12:24 [From Betadine] skin soap [From Betadine] AdvReac Itchy,red Verified 07/04/18 12:24 skin Surgical Scrub Allergy Unknown Itching, Uncoded 07/04/18 12:24 Red skin Surgical - Exam Vital Signs Temp Pulse Resp BP Pulse Ox 98.0 F 75 17 124/57 97 07/05/18 07:48 07/05/18 07:48 07/05/18 07:48 07/05/18 07:48 07/05/18 07:48 Results - Labs Abnormal Lab Results - Last 24 Hours (Table) 07/05/18 Range/Units 07:46 POC Glucose (mg/dL) 118 H (75-99) mg/dL
[2018-07-05] MEDS ORDERED: PROPOFOL 10 MG/ML 20 ML VIAL IV ONE (08:02)
--- NOTE | 2018-07-05 08:31 | P.PCN ---
Date of Procedure: 07/05/18 Description of Procedure: PREOPERATIVE DIAGNOSIS: Personal history of colon polyps. POSTOPERATIVE DIAGNOSIS: Personal history of colon polyps. Tubular adenoma, proximal hepatic flexure Sigmoid diverticulosis OPERATION: Colonoscopy to the ileocecal valve and appendiceal orifice. Colonoscopy with hot snare polypectomy, hepatic flexure SURGEON: Loni Christensen MD. ANESTHESIA: MAC. INDICATIONS: The patient is a 78-year-old female who presents for colonoscopy screening. Last colonoscopy 5 years. Benefits and risks were described and informed consent was obtained. DESCRIPTION OF PROCEDURE: The patient had undergone Gatorade, MiraLAX and Dulcolax prep. He had been brought into the operating room and laid in the left lateral decubitus position. After adequate intravenous sedation, the rectum was examined with 2% lidocaine jelly. No external hemorrhoids were encountered. The rectal tone was within normal limits. No lesions were palpated in the rectal vault. An Olympus colonoscope was advanced until the ileocecal valve and appendiceal orifice were clearly viewed. The prep was fair with visualization of the mucosal folds. The scope was removed with visualization of each mucosal fold. Scattered diverticulosis was encountered. Flat tubular villous adenoma 4 mm was snare polypectomy at the hepatic flexure. No evidence of focal colitis was found. Retroflexion of the scope demonstrated no internal hemorrhoids. The colon was desufflated. The patient had tolerated the procedure well. Withdrawal time was over 6 minutes. FINDINGS: Aronchick preparation quality scale 3 (1-5) No internal hemorrhoids No external hemorrhoids No arteriovenous malformations Sigmoid diverticulosis Removal of 1 polyp: - Snare polypectomy 4 mm tubulovillous adenoma polyp at hepatic flexure No focal colitis. RECOMMENDATIONS: Recommend Cologaurd in 3 years, otherwise repeat colonoscopy 3 years. Plan - Discharge Summary Discharge Rx Participant: No New Discharge Prescriptions: No Action INSULIN LISPRO (humaLOG) [humaLOG] See Protocol SQ ACHS amLODIPine [Norvasc] 10 mg PO W/SUPPER Amiodarone [Cordarone] 200 mg PO W/SUPPER Insulin Glargine [Lantus] 47 unit SQ QAM Cholecalciferol [Vitamin D3 (25 Mcg = 1000 Iu)] 1,000 unit PO W/SUPPER HYDROcodone/APAP 10-325MG [[place] 10-325] 1 tab PO DAILY PRN PRN Reason: Pain Tamsulosin [Flomax] 0.4 mg PO HS Docusate [Colace] 100 mg PO HS PRN PRN Reason: Constipation Pravastatin Sodium [Pravachol] 40 mg PO DAILY Meclizine [Antivert] 25 mg PO DAILY PRN PRN Reason: NAUSEA/VOMITING Gabapentin 600 mg PO TID traMADol HCL [Ultram] 50 mg PO Q4HR PRN PRN Reason: Pain Prevagen 1 each PO DAILY Multivitamins, Thera [Multivitamin (formulary)] 1 each PO DAILY Discharge Medication List INSULIN LISPRO (humaLOG) [humaLOG] See Protocol SQ ACHS 11/07/13 [History] amLODIPine [Norvasc] 10 mg PO W/SUPPER 11/07/13 [History] Amiodarone [Cordarone] 200 mg PO W/SUPPER 03/23/15 [History] Cholecalciferol [Vitamin D3 (25 Mcg = 1000 Iu)] 1,000 unit PO W/SUPPER 07/14/15 [History] Insulin Glargine [Lantus] 47 unit SQ QAM 07/14/15 [History] HYDROcodone/APAP 10-325MG [[place] 10-325] 1 tab PO DAILY PRN 02/23/17 [History] Docusate [Colace] 100 mg PO HS PRN 07/14/17 [History] Tamsulosin [Flomax] 0.4 mg PO HS 07/14/17 [History] Meclizine [Antivert] 25 mg PO DAILY PRN 08/03/17 [History] Pravastatin Sodium [Pravachol] 40 mg PO DAILY 08/03/17 [History] Gabapentin 600 mg PO TID 02/14/18 [History] traMADol HCL [Ultram] 50 mg PO Q4HR PRN 02/14/18 [History] Multivitamins, Thera [Multivitamin (formulary)] 1 each PO DAILY 07/04/18 [History] Prevagen 1 each PO DAILY 07/04/18 [History] Follow up Appointment(s)/Referral(s): Loni Christensen MD [STAFF PHYSICIAN] - As Needed Patient Instructions/Handouts: Colorectal Polyps (GEN) Activity/Diet/Wound Care/Special Instructions: Recommend Cologaurd in 3 years, otherwise colonoscopy Discharge Disposition: HOME SELF-CARE
[2018-07-05 08:32] VITALS: BP 114/69; PULSE 55
[2018-07-05 08:53] LABS: Glucose,Whole Blood 111 mg/dL (75-99)
[2018-07-05 09:02] VITALS: RESP 18
== END 2018-07-05 09:20 | disposition home or self-care (01) ==
LOC: ORWHC2ENDO 07:21
PROVIDERS: ATTEND Surgery Plastic and Reconstructive Surgery
DX: Z12.11 Encounter for screening for malignant neoplasm of colon (principal); D12.3 Benign neoplasm of transverse colon; Z86.010 Personal history of colon polyps; E11.9 Type 2 diabetes mellitus without complications; E78.5 Hyperlipidemia, unspecified; I10 Essential (primary) hypertension; I25.10 Atherosclerotic heart disease of native coronary artery without angina pectoris; K57.30 Diverticulosis of large intestine without perforation or abscess without bleeding; M19.90 Unspecified osteoarthritis, unspecified site; Z79.4 Long term (current) use of insulin; Z79.899 Other long term (current) drug therapy; Z82.49 Family history of ischemic heart disease and other diseases of the circulatory system; Z85.46 Personal history of malignant neoplasm of prostate; Z88.0 Allergy status to penicillin; Z88.8 Allergy status to other drugs, medicaments and biological substances; Z95.1 Presence of aortocoronary bypass graft; Z96.651 Presence of right artificial knee joint; Z90.49 Acquired absence of other specified parts of digestive tract; Z91.041 Radiographic dye allergy status
CPT/HCPCS: 88305; 45385; J2704

== ENCOUNTER 2018-08-23 12:25 | Inpatient (IN) | payer MEDICARE, BC ==
[2018-08-23] MEDS ORDERED: IV FLUID CONTINUATION 1,000 ML IV ONE ×2 (13:06→13:21)
[2018-08-23 13:39] LABS: Glucose,Whole Blood 134 mg/dL (75-99)
[2018-08-23] MEDS ORDERED: MIDAZOLAM (PF) 2 MG/2 ML VIAL IVP ONE (14:25)
[2018-08-23] MEDS ORDERED: CLOPIDOGREL 75 MG TAB ONE (14:26)
[2018-08-23] MEDS ORDERED: CLOPIDOGREL 75 MG TAB PO ONE (14:28)
[2018-08-23] MEDS ORDERED: BIVALIRUDIN BOLUS 250 MG/50 ML IV ONE (14:32)
[2018-08-23] MEDS ORDERED: BIVALIRUDIN 250 MG in SODIUM CHLORIDE 0.9% 50 ML IV ONE ×2 (14:33→15:39)
[2018-08-23] MEDS: NITROGLYCERIN 1000MCG/10ML SYRINGE INTRACORON ONE ×4 (14:37→15:49)
[2018-08-23] MEDS ORDERED: niCARdipine 25 MG/10 ML VIAL ONE (14:46)
[2018-08-23] MEDS: niCARdipine Syringe (1,000 mcg/10 mL) INTRACORON ONE ×4 (14:48→15:49)
[2018-08-23] MEDS ORDERED: MAG HYDROX/AL HYDROX/SIMETH 30 ML CUP ONE (14:49)
[2018-08-23] MEDS ORDERED: IOPAMIDOL-370 125ML BTL INJ ONE (14:50)
[2018-08-23] MEDS ORDERED: HYDROmorphone 1 MG/ML 1 ML SYRINGE ONE (14:50)
[2018-08-23] MEDS ORDERED: HYDROmorphone 1 MG/ML 1 ML SYRINGE IVP ONE (14:51)
[2018-08-23] MEDS ORDERED: MAG HYDROX/AL HYDROX/SIMETH 30 ML CUP PO ONE (14:51)
[2018-08-23] MEDS ORDERED: fentaNYL (PF) 50 MCG/ML 2 ML AMP ONE ×2 (15:01→15:20)
[2018-08-23] MEDS: fentaNYL (PF) 50 MCG/ML 2 ML AMP IV ONE ×2 (15:06→15:13)
[2018-08-23] MEDS ORDERED: ATROPINE SULFATE 0.1 MG/ML 10ML SYRINGE IV ONE (15:19)
[2018-08-23] MEDS ORDERED: fentaNYL (PF) 50 MCG/ML 2 ML AMP IV ONE (15:23)
[2018-08-23] MEDS ORDERED: diphenhydrAMINE 50 MG/ML 1 ML VIAL ONE (15:27)
[2018-08-23] MEDS ORDERED: diphenhydrAMINE 50 MG/ML 1 ML VIAL IVP ONE (15:28)
[2018-08-23] MEDS ORDERED: IOPAMIDOL-370 100ML BTL INJ ONE ×3 (15:31→21:23)
[2018-08-23] MEDS ORDERED: niCARdipine Syringe (1,000 mcg/10 mL) INTRACORON ONE (15:53)
[2018-08-23] MEDS ORDERED: DOPamine DRIP 800 MG in DEXTROSE/WATER 1 250ML.BAG IV ONE ×2 (16:04→19:58)
[2018-08-23] MEDS ORDERED: HYDROcodone/APAP 10-325MG 1 EACH TAB PO PRN (16:20)
[2018-08-23] MEDS ORDERED: traMADol 50 MG TAB PO PRN (16:20)
[2018-08-23] MEDS ORDERED: DOCUSATE 100 MG CAP PO PRN (16:20)
[2018-08-23] MEDS ORDERED: MECLIZINE 25 MG TAB PO PRN (16:20)
[2018-08-23] MEDS ORDERED: RX INFO: IV CONTRAST WAS GIVEN 1 EACH MISC MISCELLANE PRN (16:22)
[2018-08-23] MEDS ORDERED: ATROPINE SULFATE 0.1 MG/ML 10ML SYRINGE IV PRN (16:22)
[2018-08-23] MEDS ORDERED: MAG HYDROX/AL HYDROX/SIMETH 30 ML CUP PO PRN (16:22)
[2018-08-23] MEDS ORDERED: NITROGLYCERIN SL TABS 0.4 MG TAB SUBLINGUAL PRN (16:22)
[2018-08-23] MEDS ORDERED: SODIUM CHLORIDE 0.9% 1,000 ML IV SCH (16:30)
[2018-08-23] MEDS ORDERED: CHOLECALCIFEROL 1,000 UNIT TAB PO SCH (17:30)
[2018-08-23] MEDS ORDERED: AMIODARONE 200 MG TAB PO SCH (17:30)
[2018-08-23] MEDS: DOPamine DRIP 800 MG in DEXTROSE/WATER 1 250ML.BAG IV SCH (17:46)
[2018-08-23 18:19] LABS: Basophils % (A) 0 %; Eosinophils % (A) 0 %; HCT 43.7 % (39.0-53.0); HGB 14.4 gm/dL (13.0-17.5); Lymphocytes # (A) 1.9 k/uL (1.0-4.8); Lymphocytes % (A) 19 %; MCH 30.6 pg (25.0-35.0); MCHC 32.9 g/dL (31.0-37.0); MCV 93.1 fL (80.0-100.0); Mean Platelet Volume 9.4; Monocytes # (A) 0.2 k/uL (0-1.0); Monocytes % (A) 2 %; Neutrophils % (A) 78 %; Platelet Count 203 k/uL (150-450); RBC 4.69 m/uL (4.30-5.90); RDW 14.8 % (11.5-15.5); WBC 10.3 k/uL (3.8-10.6)
[2018-08-23] MEDS: NOREPINEPHRINE 32 MG in SODIUM CHLORIDE 0.9% 218 ML IV SCH (18:25)
[2018-08-23 18:33] LABS: Glucose,Whole Blood 301 mg/dL (75-99)
[2018-08-23 18:41] LABS: Calcium 8.8 mg/dL (8.4-10.2)
[2018-08-23] MEDS ORDERED: LIDOCAINE 1% INJ 10MG/ML (20 ML MDV) ONE (19:44)
[2018-08-23] MEDS ORDERED: NOREPINEPHRINE 32 MG in SODIUM CHLORIDE 0.9% 218 ML IV ONE (19:58)
[2018-08-23] MEDS ORDERED: HEPARIN SODIUM 1,000 UN/ML (10ML VL) ONE (20:11)
[2018-08-23] MEDS ORDERED: HEPARIN SODIUM 1,000 UN/ML (10ML VL) IV ONE ×2 (20:20→20:53)
[2018-08-23] MEDS ORDERED: ONDANSETRON 4 MG/2 ML VIAL ONE (20:30)
[2018-08-23] MEDS ORDERED: PROPOFOL 10 MG/ML 20 ML VIAL IV ONE (20:30)
[2018-08-23] MEDS ORDERED: KETAMINE 10 MG/ML 20 ML VIAL ONE (20:30)
--- NOTE | 2018-08-23 20:35 | PN ---
PROGRESS NOTE Mr. Tucker Vega is a gentleman [facility] elevation SD and underwent cardiac cath by Dr. Pearson. In 2008, he had aortocoronary bypass surgery for left main lesion with a GAVIRIA to LAD and separate vein graft to the obtuse marginal branch of circumflex as well as the diagonal branch. This time, he had a tight distal RCA lesion and Dr. Pearson stented the vessel and beyond he lost flow in one of the branches of the RCA, transiently with thrombus and this was again opened up. He was stabilized but became bradycardic with a complete heart block. He had an underlying left bundle. A temporary pacemaker was placed and he was brought to the ICU. After arrival to ICU, he became progressively hypotensive requiring Levophed and dopamine combination. He is on a backup ventricular pacemaker at a rate of about 70, blood pressure is about 88 systolic. His urine output has been 30 mL/hour. I evaluated the patient. His hemoglobin is stable. Groin site is clean and dry. Physical exam reveals S1, S2 with a short systolic murmur with diminished air entry both lung johnson. Abdomen is soft, nontender. Lower extremities reveal diminished pulses. I explained to the patient, his and also son that we will take him back to the offset label rewinder and re-evaluate the status of the coronaries and if there is occlusion of the RCA, I will perform intervention. The rationale, risks, benefits, options were explained. I also explained to them the possibility of intra-aortic balloon pump if necessary. I explained to them that the risk is higher than usual. Mortality risk is high given the fact we are doing reintervention and patient has history of prior bypass surgery with significant comorbid conditions. The patient and as well as son understand the risks, benefits, options, rationale, and wished to proceed with the procedure which will be performed expeditiously. MMODL / IJN: [id number] /
[2018-08-23] MEDS ORDERED: DOBUTamine 250 MG in DEXTROSE 5% IN WATER 250 ML IV ONE ×2 (20:45)
[2018-08-23] MEDS ORDERED: DOBUTamine DRIP for NUC MED 500 MG in DEXTROSE/WATER 1 250ML.BAG IV ONE (20:45)
--- NOTE | 2018-08-23 20:50 | PTCA ---
PERCUTANEOUSTRANS CORORONARY ANGIOGRAPHY DATE OF SERVICE: August 23, 2018 PERFORMING PHYSICIAN: Mendoza Pearson MD, manager product management. PROCEDURE PERFORMED: 1. Successful stenting of the distal right coronary artery using 3.25 x 23 mm Xience JUAN MANUEL with an excellent angiographic results and reduction of stenosis from 80% to 0%. 2. Successful stenting of the PDA branch of the right coronary artery using 2.0 x 18 mm Eze drug-eluting stent with excellent angiographic results. 3. Transvenous temporary pacemaker. INDICATION: This is an 78-year-old gentleman with history of coronary artery disease and prior coronary artery bypass grafting where he received in the past, GAVIRIA to LAD, SVG to diagonal and SVG to OM, presented to the [facility] complaining of chest discomfort and ruled in for acute non ST elevation myocardial infarction. 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 He continues to have chest discomfort during this hospital stay. Because of that, heart catheterization was advised. The patient underwent a heart catheterization at [facility] and heart catheterization revealed occluded left main, severe disease involving the distal right coronary artery, patent GAVIRIA to LAD, occluded SVG to diag, and an intermediate to severe disease involving the ostial of the SVG to OM. Because of that, the decision was made towards percutaneous coronary intervention of the of the [place] right coronary artery. APPROACH: Right common femoral artery. COMPLICATION: No flow involve the PDA branch of the right coronary artery and dissection or distal embolization. DURATION OF PROCEDURE: 1 hour and 40 minutes. PROCEDURE DESCRIPTION: Please refer to the diagnostic heart catheterization that was performed earlier today. Anticoagulation was initiated using Angiomax. The RCA was engaged using JR4 guide. I wired it using a run-through wire and the wire was positioned in the PDA branch of the RCA. I did balloon angioplasty using 2.5 x 15 mm balloon before I deployed a 3.25 x 18 mm JUAN MANUEL was positioned under fluoroscopy guidance and deployed under 12 atmospheres for 20 seconds with the following angiogram showing no flow in the PDA branch of the right coronary artery. I tried at that point to advance a wire which was a with a run- through wire to the PDA and I was unable but I was able using a Whisper wire. I did again balloon angioplasty of the PDA branch of the right coronary artery. After that, I was able to see a lesion involving its ostium about 80 to 90%. I covered that with 2.0 x 12 mm eze drug eluting stent with the following angiogram showed flow in the PDA, but flow was sluggish. There was a pinch of the PLV branch of the right coronary artery. I wired both the PDA and PLV again. I did balloon angioplasty again of the PDA branch of the right coronary artery and finally I was able to get flow back, but the flow was sluggish, but at the same time, the patient was hypotensive. He was started on dopamine in the label pinker. Also by the end of the procedure, he was in complete heart block and for that reason I placed a transvenous temporary pacemaker from right femoral vein approach. The patient is going to be admitted to the intensive care unit. I will continue following up with the patient in the ICU. We will obtain a CBC to rule out anemia. We will continue following up with the patient. Also I will obtain an echocardiogram with Doppler to assess for pericardial effusion, which could be responsible for the hypotension. POSTPROCEDURE MANAGEMENT: 1. Dual anti-platelet therapy. 2. Risk factors modifications. 3. Follow up with the patient. MMODL / IJN: [id number] /
[2018-08-23] MEDS ORDERED: TAMSULOSIN 0.4 MG CAP.ER.24H PO SCH (21:00)
[2018-08-23] MEDS ORDERED: INSULIN ASPART (NovoLOG) 100 UNIT/ML VIAL SQ SCH (21:00)
[2018-08-23] MEDS ORDERED: ZOLPIDEM 5 MG TAB PO PRN (21:00)
[2018-08-23] MEDS ORDERED: GABAPENTIN 300 MG CAP PO SCH (22:00)
[2018-08-23] MEDS: SODIUM CHLORIDE 0.9% 1,000 ML IV SCH (22:30)
[2018-08-23 22:36] LABS: Glucose,Whole Blood 357 mg/dL (75-99)
[2018-08-23 22:55] LABS: ABG Base Excess -19.2 mmol/L; ABG HCO3 11 mmol/L (21-25); ABG Oxygen Saturation 97.6 % (94-97); ABG PCO2 36 mmHg (35-45); ABG PO2 144 mmHg (83-108); ABG TCO2 12 mmol/L (19-24); Allen Test Performed? Yes
[2018-08-23 22:56] LABS: ABG PH 7.08 (7.35-7.45)
--- NOTE | 2018-08-23 23:08 | PTCA ---
PERCUTANEOUSTRANS CORORONARY ANGIOGRAPHY DATE OF SERVICE: 08/23/2018 PROCEDURE: 1. Coronary angiography and selective injection of [place] tribe RCA and vein graft to the obtuse marginal branch of circumflex. 2. Intra-aortic balloon pump placement. 3. Repositioning of the temporary transvenous pacemaker. 4. Percutaneous transluminal coronary angioplasty and stenting of saphenous vein graft to the obtuse marginal branch of circumflex with a drug-eluting stent. Moderate conscious sedation time was 100 minutes. Patient was administered Versed. He was also administered some propofol and intubated with a nurse wrapper leaf inspector. His oxygen saturation, hemodynamics and EKG were monitored closely. CLINICAL INFORMATION: Mr. Tucker Vega is an 78-year-old gentleman with a history of some dementia, hypertension and hyperlipidemia who underwent stenting of distal RCA performed by Dr. Pearson earlier today. Following the procedure, he had occlusion of the distal branches transiently, but these were all opened up and he went into a complete heart block requiring a transvenous pacemaker. In the ICU, he continued to be hypotensive, bradycardic, complaining of chest pain, and therefore after evaluation I brought him to the analyst microbiology lab for coronary angiography. PROCEDURE NOTE: The existing 6-Armenian introducer in the right femoral artery was used to perform the procedure. Initially I first repositioned the pacemaker because there was some inadequate capture. A good pacemaker position was obtained under fluoroscopic guidance with a threshold of less than 1.0 mV. I then performed, using a right Prudencio guide catheter, selective coronary angiography of the [place] tribe RCA that was stented. This vessel was widely patent at its proximal, mid and distal portions. It divided into 3 different branches, all of which were patent with decent flow. There was one superior branch which was probably supplying the AV node area and was a very superior diffusely diseased branch, but this was totally occluded. The rest of the branches had brisk flow. I evaluated the angiograms and I felt that I should not do any intervention of that single branch, mainly because of significant thrombus burden, and there was a risk of losing the other branches which were now patent. I then went ahead and placed an intra-aortic balloon pump under fluoroscopic guidance and had a decent augmentation of about 75 mmHg. The patient had a Dubose catheter in place and had about 60 mL of urine. He was given 3000 units of heparin intravenously. I then performed selective coronary angiography of the vein graft to the obtuse marginal branch of circumflex. This vein graft had an 80% lesion with haziness and thrombus in the ostium and proximal portion. The patient also had a GAVIRIA to LAD, but that was not injected. His [place]sem[place] tribe left system was almost non-existent, without any antegrade flow beyond the left main. I noted that the circumflex marginal graft had a significant lesion in the ostial portion, and I proceeded to perform intervention. Using a left coronary bypass guide catheter and a run-through wire, I crossed the lesion. Wire was kept distally. Without predilatation, a 23 mm long 4.0 caliber Xience stent was deployed at 14 atmospheres. Excellent angiographic result was achieved and he remained hemodynamically at the same level. I then reduced the Levophed, which was almost at 60 mcg. I came down on the Levophed to 20 mcg and I started dobutamine for a while but then went to dopamine at 5 mcg and Levophed at 20 mcg. With this, patient's augmented pressure was about 70-75 mmHg. I sutured the balloon pump and ensured that the sheath was sutured. For the PCI procedure, I gained a fresh access from the left femoral approach with a 6-Armenian introducer. From the right femoral arterial access, I placed the balloon pump. All the sheaths and balloon pump were sutured and secured. I spoke to the patient's family at length regarding the findings and suggested that the prognosis was poor, given his advanced age, multiple comorbid conditions, diffuse nature of coronary artery disease and poor outflow of the right coronary artery. I explained to them the mortality risk of nearly 50% under the circumstances, but we will continue balloon pump support, inotropic support, move him to the ICU, watch him closely and see how he does. The patient's family was appreciative of the efforts. The patient was sent to the ICU on intra-aortic balloon pump at 1:1 temporary pacemaker at 80 beats per minute with underlying complete heart block, 20 mcg of Levophed and 5 mcg of dopamine. Prognosis remains guarded. I spoke to the discharge specialist, Dr. Baldwin, and he will be taking care of the ventilator management through the night as well. Prognosis remains quite guarded. MMODL / IJN: [id number] /
[2018-08-23] MEDS ORDERED: CLOPIDOGREL 75 MG TAB PO STA (23:11)
--- NOTE | 2018-08-23 23:35 | XR ---
EXAM: XR Chest, 1 View CLINICAL HISTORY: Endotracheal tube TECHNIQUE: Frontal view of the chest. COMPARISON: No relevant prior studies available. FINDINGS: Lungs: Diffuse airspace opacities which may be secondary to under distention. Pleural space: Unremarkable. No pneumothorax. Heart: Heart is prominent. Mediastinum: Unremarkable. Bones/joints: Unremarkable. Tubes, lines and devices: Endotracheal tube with tip terminating 1 cm above the ricco. Enteric tube with tip in the gastric body. IMPRESSION: 1. Endotracheal tube with tip terminating 1 cm above the ricco. 2. Diffuse airspace opacities which may be secondary to under distention. Pulmonary vascular congestion versus an infectious process is not excluded.
[2018-08-24] MEDS ORDERED: NALOXONE 0.4 MG/ML 1 ML VIAL IV PRN (00:36)
[2018-08-24] MEDS ORDERED: DEXTROSE 5% IN WATER 1,000 ML with SODIUM BICARB (1 MEQ/ML) 100 ML IV SCH (01:00)
[2018-08-24 04:27] LABS: Basophils # (A) 0.1 k/uL (0-0.2); Basophils % (A) 0 %; Eosinophils # (A) 0.1 k/uL (0-0.7); Eosinophils % (A) 0 %; HCT 42.7 % (39.0-53.0); HGB 13.2 gm/dL (13.0-17.5); Hypochromasia Moderate; Lymphocytes # (A) 0.9 k/uL (1.0-4.8); Lymphocytes % (A) 4 %; MCH 30.4 pg (25.0-35.0); MCHC 30.9 g/dL (31.0-37.0); Mean Platelet Volume 9.8; Monocytes # (A) 1.6 k/uL (0-1.0); Monocytes % (A) 7 %; Neutrophils # (A) 21.5 k/uL (1.3-7.7); Neutrophils % (A) 88 %; Platelet Count 189 k/uL (150-450); Prothrombin Time 10.6 sec (9.0-12.0); RBC 4.34 m/uL (4.30-5.90); RDW 14.6 % (11.5-15.5); WBC 24.5 k/uL (3.8-10.6)
[2018-08-24 04:29] LABS: MCV 98.4 fL (80.0-100.0)
[2018-08-24 04:32] LABS: Calcium 8.3 mg/dL (8.4-10.2); Magnesium 1.7 mg/dL (1.6-2.3); Phosphorus 4.7 mg/dL (2.5-4.5); Potassium 3.9 mmol/L (3.5-5.1)
[2018-08-24 04:33] LABS: ABG Base Excess -20.2 mmol/L; ABG Oxygen Saturation 97.7 % (94-97); ABG PCO2 29 mmHg (35-45); ABG PO2 131 mmHg (83-108); ABG TCO2 10 mmol/L (19-24); Allen Test Performed? Yes
[2018-08-24 04:53] LABS: ABG HCO3 9 mmol/L (21-25); ABG PH 7.11 (7.35-7.45)
[2018-08-24] MEDS ORDERED: INSULIN REGULAR BOLUS (FROM DRIP BAG) IV PRN (05:10)
[2018-08-24] MEDS ORDERED: SODIUM BICARB 8.4% 50 ML SYR (1 MEQ/ML) IV STA (05:10)
[2018-08-24] MEDS: DEXTROSE 5% IN WATER 1,000 ML with SODIUM BICARB (1 MEQ/ML) 150 ML IV SCH ×3 (05:31→16:04)
[2018-08-24] MEDS: PROPOFOL 1,000 MG in EMPTY BAG 1 BAG IV SCH ×2 (05:35→19:39)
[2018-08-24 05:53] LABS: Glucose,Whole Blood 508 mg/dL (75-99)
[2018-08-24] MEDS: INSULIN REGULAR 100 UNIT in SODIUM CHLORIDE 0.9% 100 ML IV SCH ×2 (05:58→12:20)
[2018-08-24] MEDS ORDERED: POTASSIUM BICARBONATE/CIT AC 20 MEQ TABLET.EFF NG-TUBE SCH ×2 (07:00→09:30)
[2018-08-24 07:07] LABS: Glucose,Whole Blood 514 mg/dL (75-99)
--- NOTE | 2018-08-24 07:52 | XR ---
EXAMINATION TYPE: XR chest 1V DATE OF EXAM: 08/24/2018 COMPARISON: Prior chest x-ray 08/23/2018 HISTORY: Shortness of breath TECHNIQUE: Single frontal view of the chest is obtained. FINDINGS: Endotracheal tube, orogastric tube are overlying appropriate positions. Patient is post me jorge luis sternotomy. Intra-aortic balloon pump marker is at the level of the transverse aorta. There are overlying cardiac leads. Patient is rotated. Lung volumes are low. Interstitium is mildly increased. Heart is likely enlarged. Perihilar region which is abnormal increased density possibly related to ai rspace disease. IMPRESSION: There may be a component of interstitial, pulmonary edema. Correlate for pneumonia. Foll ow-up PA and lateral chest x-ray when patient is currently stable.
[2018-08-24 08:03] LABS: ABG Base Excess -12.6 mmol/L; ABG HCO3 14 mmol/L (21-25); ABG Oxygen Saturation 97.9 % (94-97); ABG PCO2 30 mmHg (35-45); ABG PH 7.28 (7.35-7.45); ABG PO2 110 mmHg (83-108); ABG TCO2 15 mmol/L (19-24)
[2018-08-24 08:06] LABS: Allen Test Performed? NO
[2018-08-24 08:16] LABS: Glucose,Whole Blood 505 mg/dL (75-99)
[2018-08-24] MEDS ORDERED: IPRATROPIUM-ALBUTEROL 3 ML NEB INHALATION PRN (08:42)
[2018-08-24] MEDS ORDERED: INSULIN DETEMIR (LEVEMIR) 100 UNIT/ML SYR SQ SCH (09:00)
[2018-08-24] MEDS ORDERED: PRAVASTATIN SODIUM 40 MG TAB PO SCH (09:00)
[2018-08-24] MEDS ORDERED: ASPIRIN 325 MG TAB PO SCH (09:00)
[2018-08-24 09:05] LABS: Glucose,Whole Blood 464 mg/dL (75-99)
[2018-08-24] MEDS: MULTIVITAMINS, THERA 1 EACH TAB PO SCH (09:15)
[2018-08-24] MEDS: MAGNESIUM SULFATE-D5W PMX 1 GM in DEXTROSE/WATER 1 100ML.BAG IVPB SCH ×2 (09:15→11:10)
[2018-08-24] MEDS: ATORVASTATIN 40 MG TAB PO SCH (09:15)
[2018-08-24] MEDS: CHLORHEXIDINE GLUCONATE 15 ML CUP MUCOUS MEM SCH ×2 (09:15→21:21)
[2018-08-24] MEDS: CLOPIDOGREL 75 MG TAB PO SCH (09:16)
[2018-08-24] MEDS: PREVAGEN PO SCH (09:16)
[2018-08-24] MEDS: ASPIRIN 81 MG PO SCH (09:16)
--- NOTE | 2018-08-24 09:26 | PN ---
PROGRESS NOTE Mr. Vega was evaluated by me yesterday and I performed a PTCA and stenting of a vein graft to the obtuse marginal. I noted that his RCA graft was patent except a branch of RCA that was supplying the PLV territory was occluded. However, I placed intra-aortic balloon pump, adjusted the pacemaker, performed stenting of vein graft to the obtuse marginal. Through the night, he has done fairly well. His augmented pressure on the balloon pump is about 85. His pulses in the lower extremities are palpable. His urine output has been very much acceptable. He is responding to commands, but he is being sedated. Plan is to resolve his acidosis which has been an issue. He has been on a bicarb drip and also multiple amps of bicarb. Plan is to continue current medical regimen including bicarb. Follow him closely. His renal function has worsened. We will continue his current medical regimen, dual antiplatelet therapy and Lipitor 40 mg daily. Blood pressure today with balloon pump on standby is 106 systolic. With the balloon pump augmentation is about 86 or so. S1, S2 heard normally, short systolic murmur at the base is audible. Lungs reveal ventilated assisted breath sounds. Abdomen is soft. Lower extremities reveal palpable pulses. The pacemaker and balloon pump site as well as the sheath site are all clean and dry. RECOMMENDATION: Will continue current medications, try to resolve the acidosis and also I will place him on antibiotics in the form of Kefzol 1 gram q.8 hours. MMODL / IJN: [id number] /
--- NOTE | 2018-08-24 09:35 | ECHOF ---
Referral Reason:RULE OUT PERICARDIAL EFFUSION MEASUREMENTS -------- HEIGHT: 170.2 cm WEIGHT: 113.4 kg BP: 81/32 RVIDd: 2.6 cm (< 3.3) IVSd: 1.4 cm (0.6 - 1.1) LVIDd: 4.8 cm (3.9 - 5.3) LVPWd: 1.4 cm (0.6 - 1.1) IVSs: 1.8 cm LVIDs: 3.3 cm LVPWs: 1.7 cm LA Diam: 3.5 cm (2.7 - 3.8) LAESV Index (A-L): 20.18 ml/m Ao Diam: 3.7 cm (2.0 - 3.7) AV Cusp: 1.8 cm (1.5 - 2.6) MV EXCURSION: 22.560 mm (> 18.000) MV EF SLOPE: 83 mm/s (70 - 150) EPSS: 0.5 cm MV E Crispin: 0.74 m/s MV DecT: 231 ms MV A Crispin: 0.81 m/s MV E/A Ratio: 0.91 FINDINGS -------- Paced rhythm. This was a technically difficult study with suboptimal apical views. The left ventricular size is normal. There is moderate concentric left ventricular hypertrophy. O verall left ventricular systolic function is mildly impaired with, an EF between 45 - 50 %. Basal i nferior LV wall motion is hypokinetic. Basal inferoseptal LV wall motion is hypokinetic. The right ventricle is normal in size. Normal LA size by volume 22+/-6 ml/m2. The right atrium is normal in size. 5.0mg of Lumason was utilized for enhancement of images Interatrial and interventricular septum intact. There is mild aortic valve sclerosis. The mitral valve leaflets are mildly thickened. Mild mitral annular calcification present. The tricuspid valve appears structurally normal. The pulmonic valve was not well visualized. The aortic root size is normal. IVC Not well visulized. There is no pericardial effusion. CONCLUSIONS -------- 1. Paced rhythm. 2. This was a technically difficult study with suboptimal apical views. 3. The left ventricular size is normal. 4. There is moderate concentric left ventricular hypertrophy. 5. Overall left ventricular systolic function is mildly impaired with, an EF between 45 - 50 %. 6. Basal inferior LV wall motion is hypokinetic. 7. Basal inferoseptal LV wall motion is hypokinetic. 8. The right ventricle is normal in size. 9. Normal LA size by volume 22+/-6 ml/m2. 10. The right atrium is normal in size. 11. 5.0mg of Lumason was utilized for enhancement of images 12. Interatrial and interventricular septum intact. 13. There is mild aortic valve sclerosis. 14. The mitral valve leaflets are mildly thickened. 15. Mild mitral annular calcification present. 16. The tricuspid valve appears structurally normal. 17. The pulmonic valve was not well visualized. 18. The aortic root size is normal. 19. IVC Not well visulized. 20. There is no pericardial effusion. ELECTRICAL INSTRUMENTATION TECHNICIAN: Jennifer Guzman RDCS
[2018-08-24 10:06] LABS: Glucose,Whole Blood 430 mg/dL (75-99)
--- NOTE | 2018-08-24 10:33 | P.CNPUL ---
History of Present Illness Consult date: 08/24/18 Requesting physician: Amos Yañez Reason for consult: other (Critical care/ventilator management) Chief complaint: Chest pain History of present illness: This is an 78-year-old gentleman who follows with Dr. Evangelista as his primary care physician. He has a history of coronary artery disease with previous coronary artery bypass grafting in 2008 where he received a GAVIRIA to the LAD, SVG to the diagonal and SVG to the OM, diabetes mellitus type 2, dementia, pneumonia/sepsis, prostate cancer, chronic back pain, renal colic, hyperlipidemia, hypertension. He presented to [facility] on 08/22/2018 with complaints of chest pain. This was initially described as sharp and stabbing per the ER notes. No shortness of breath. He was given nitroglycerin and the EMS with minimal improvement. He was admitted there for the same. On 08/23/2018 he had ongoing chest pain and had undergone cardiac catheterization at [facility] was found to have an occluded left main, severe disease involving the distal right coronary artery, patent GAVIRIA to the LAD, occluded SVG to the diagonal and in her immediate to severe disease involving the ostial of the SVG to the OM. He was found to have an acute non-ST segment elevation myocardial infarction subsequent transferred here yesterday where he did undergo successful stenting of the distal right coronary artery and PDA branch of the coronary artery. He did develop occlusion of the distal branches transiently which were opened up and the patient went into complete heart block and received a transvenous temporary pacemaker. He was then placed in the intensive care unit. Later he developed ongoing chest discomfort, hypotension and taken back to [facility]. He subsequently received intra-aortic balloon pump and stenting of the saphenous vein grafts to the obtuse marginal branch of the circumflex. At that time he required intubation mechanical ventilatory support. He was again returned to the ICU. He is seen today in consultation. He is currently on mechanical ventilator assist control of 16, tidal volume 500, FiO2 100% and a PEEP of 5. Most recent blood gases reveal a P O2 of 110, pCO2 29, pH of 7.28. Arterial blood gases prior to that were a P O2 131, pCO2 28 and a pH of 7.11 where he did receive 2 A of sodium bicarb and then increased the sodium bicarb drip which has 3 A of bicarb to 125 ML's per hour. He is sedated with propofol at 15 mcg/kg/m. He has dopamine at 3 mcg/kg/m. Insulin drip at 17 units per hour, norepinephrine at 20 mcg/m, 0.9 normal saline at 150 ML's per hour. His intra-aortic balloon pump is in place at 1:1. Chest x-ray reveals evidence of mild congestive heart failure. Current temperature 99.4. Blood pressure 94/60, Review of Systems ROS unobtainable: due to endotracheal tube Past Medical History Past Medical History: Coronary Artery Disease (CAD), Cancer, Diabetes Mellitus, Hyperlipidemia, Hypertension, Memory Impairment, Osteoarthritis (OA), Pneumonia, Prostate Disorder, Sleep Apnea/CPAP/BIPAP Additional Past Medical History / Comment(s): Prostate cancer-2010- tx with radiation. HAS ABD ADHESIONS, History of Any Multi-Drug Resistant Organisms: None Reported Past Surgical History: Appendectomy, Back Surgery, Cholecystectomy, Coronary Bypass/CABG, Heart Catheterization, Hernia Repair, Joint Replacement, Orthopedic Surgery Additional Past Surgical History / Comment(s): ORIF Rt Ankle. ORIF Rt Fibula Surgery. RT Knee Replacement. 2008 Triple CABG. Abdominal adhesions. Fatty tumor from neck. CTR jono. Abdominal surgery with mesh in 2001. Back nerve surgery. Rotator cuff-left shoulder. ING hernia repair w/ mesh. 3 fatty tumors removed 08/15/15, COLONOSCOPY Past Anesthesia/Blood Transfusion Reactions: No Reported Reaction Smoking Status: Never smoker - Past Family History Father History Unknown: Yes Family Medical History: Cancer Additional Family Medical History / Comment(s): PROSTATE CANCER Son(s) Family Medical History: Cancer Additional Family Medical History / Comment(s): TESTICULAR CANCER Mother Family Medical History: Coronary Artery Disease (CAD), Hypertension Sister(s) Family Medical History: Cancer Medications and Allergies Home Medications Medication Instructions Recorded Confirmed Type INSULIN LISPRO (humaLOG) [humaLOG] See Protocol SQ ACHS 11/07/13 08/23/18 History amLODIPine [Norvasc] 10 mg PO W/SUPPER 11/07/13 08/23/18 History Amiodarone [Cordarone] 200 mg PO W/SUPPER 03/23/15 08/23/18 History Cholecalciferol [Vitamin D3 (25 1,000 unit PO W/SUPPER 07/14/15 08/23/18 History Mcg = 1000 Iu)] Insulin Glargine [Lantus] 47 unit SQ QAM 07/14/15 08/23/18 History HYDROcodone/APAP 10-325MG [[place] 1 tab PO DAILY PRN 02/23/17 08/23/18 History 10-325] Tamsulosin [Flomax] 0.4 mg PO HS 07/14/17 08/23/18 History Meclizine [Antivert] 25 mg PO DAILY PRN 08/03/17 08/23/18 History Pravastatin Sodium [Pravachol] 40 mg PO DAILY 08/03/17 08/23/18 History Gabapentin 600 mg PO TID 02/14/18 08/23/18 History Multivitamins, Thera [Multivitamin 1 each PO DAILY 07/04/18 08/23/18 History (formulary)] Prevagen 1 each PO DAILY 07/04/18 08/23/18 History traMADol HCL [Ultram] 50 mg PO Q6H PRN 08/23/18 08/23/18 History Allergies Allergy/AdvReac Type Severity Reaction Status Date / Time Iodinated Contrast- Oral and Allergy Rash/Hives Verified 08/23/18 17:35 IV Dye iodine Allergy Rash/Hives Verified 08/23/18 17:35 Penicillins Allergy Swelling Verified 08/23/18 17:35 duloxetine [From Cymbalta] AdvReac PRICKLY Verified 08/23/18 17:35 FEELING IN HEAD povidone-iodine AdvReac Itchy,red Verified 08/23/18 17:35 [From Betadine] skin soap [From Betadine] AdvReac Itchy,red Verified 08/23/18 17:35 skin Surgical Scrub Allergy Unknown Itching, Uncoded 07/04/18 12:24 Red skin Physical Exam Vitals: Vital Signs Temp Pulse Pulse Resp BP BP Pulse Ox 08/24/18 08:00 99.4 F 80 18 95/60 97 08/24/18 07:30 80 20 95/54 97 08/24/18 07:00 80 18 77/55 97 08/24/18 06:30 80 18 78/52 95 08/24/18 06:00 80 18 98/66 95 08/24/18 05:30 80 25 H 144/110 98 08/24/18 05:15 80 16 92/70 98 06/27/19 05:00 80 17 105/72 98 08/24/18 04:45 80 16 82/49 98 08/24/18 04:30 80 18 94/44 98 08/24/18 04:00 98.0 F 80 17 89/66 97 08/24/18 03:30 80 16 100/58 97 08/24/18 03:00 80 22 93/54 97 08/24/18 02:30 80 20 99/59 98 08/24/18 02:00 80 20 93/50 99 08/24/18 01:30 80 21 96/52 98 08/24/18 01:00 80 22 96/52 99 08/24/18 00:30 97.3 F L 80 21 92/50 97 08/24/18 00:00 80 18 97/47 97 08/23/18 23:30 80 18 100/51 98 08/23/18 23:00 80 18 87/50 99 08/23/18 22:30 80 18 94/56 98 08/23/18 19:30 80 16 82/49 95 08/23/18 19:20 69 12 94/48 95 08/23/18 19:10 70 15 84/49 95 08/23/18 19:00 70 18 95 08/23/18 18:50 69 17 96 08/23/18 18:40 71 13 94 L 08/23/18 18:35 96 08/23/18 18:30 70 14 96 08/23/18 18:20 69 14 95 08/23/18 18:10 80 20 97 08/23/18 18:00 103 H 10 L 97 08/23/18 17:50 69 15 96 08/23/18 17:40 69 10 L 97 08/23/18 17:30 71 14 97 08/23/18 17:20 72 12 93 L 08/23/18 17:10 73 15 95 08/23/18 17:05 16 08/23/18 17:00 96.1 F L 67 14 95 08/23/18 13:12 61 18 137/93 Intake and Output 08/23/18 08/24/18 08/24/18 22:59 06:59 14:59 Intake Total 467.378 3407.09 511.650 Output Total 420 458 50 Balance 287.544 7388.09 461.650 Intake: IV 396 1748 281 0.9 NaCl- Primary line 150 1200 150 Arterial Sheath pressure 46 48 6 bag Sodium Bicarbonate 500 125 infusion Sodium Chloride 0.9% 1, 200 000 ml @ 100 mls/hr IV . Q10H AALIYAH Rx#:[id number] Intake, IV Titration 169.036 9.09 230.650 Amount DOPamine DRIP 800 mg In 79.862 87.426 Dextrose/Water 1 250ml. bag @ 10 MCG/KG/MIN 17. 813 mls/hr IV .Q14H3M AALIYAH Rx#:[id number] Insulin Regular 100 unit 9.09 30.3 In Sodium Chloride 0.9% 100 ml @ Per Protocol IV .Q0M AALIYAH Rx#:[id number] Norepinephrine 32 mg In 89.174 103.124 Sodium Chloride 0.9% 218 ml @ 0.05 MCG/KG/MIN 2. 227 mls/hr IV .Q24H AALIYAH Rx#:[id number] Propofol 1,000 mg In 9.8 Empty Bag 1 bag @ Titrate IV .Q0M AALIYAH Rx#: [id number] Output: Gastric Drainage 140 Urine 420 318 50 Other: Voiding Method Indwelling Catheter Indwelling Catheter Weight 95 kg 103.1 kg ABP, PAP, CO, CI - Last 8 Hours Arterial Blood Pressure 90/39 Arterial Blood Pressure 92/37 Arterial Blood Pressure 91/35 Arterial Blood Pressure 91/46 Arterial Blood Pressure 95/33 Arterial Blood Pressure 101/34 Arterial Blood Pressure 86/45 Arterial Blood Pressure 84/45 Arterial Blood Pressure 82/30 Arterial Blood Pressure 81/34 Arterial Blood Pressure 93/31 Arterial Blood Pressure 85/26 Arterial Blood Pressure 102/37 Arterial Blood Pressure 87/26 GENERAL EXAM: 78-year-old gentleman. Intubated, sedated. On mechanical ventila tor. HEAD: Normocephalic. EYES: Sluggish reaction of pupils, equal size. NOSE: Clear with pink turbinates. THROAT: Oral endotracheal and gastric tube secured in place. NECK: No masses, no JVD. CHEST: No chest wall deformity. LUNGS: Equal air entry with scattered rhonchi, crackles in the bases.. CVS: S1 and S2 normal with no audible murmur, regular rhythm. ABDOMEN: No hepatosplenomegaly, normal bowel sounds, no guarding or rigidity. SPINE: No scoliosis or deformity SKIN: No rashes CENTRAL NERVOUS SYSTEM: Sedated, tone is normal in all 4 extremities. EXTREMITIES: Femoral TVP, IAPB in the right groin, arterial sheath in the left groin. There is trace peripheral edema. No clubbing, no cyanosis. Peripheral pulses are intact. Results - Laboratory Findings CBC and BMP: 08/24/18 04:05 08/24/18 04:05 ABG ABG pH 7.28 (7.35-7.45) L 08/24/18 07:59 ABG pCO2 30 mmHg (35-45) L 08/24/18 07:59 ABG pO2 110 mmHg (83-108) H 08/24/18 07:59 ABG O2 Saturation 97.9 % (94-97) H 08/24/18 07:59 PT/INR, D-dimer PT 10.6 sec (9.0-12.0) 08/24/18 04:05 INR 1.0 (<1.2) 08/24/18 04:05 Abnormal lab findings: Abnormal Labs 08/23/18 08/23/18 08/23/18 13:38 17:55 17:55 WBC MCHC Neutrophils # 8.0 H Lymphocytes # Monocytes # APTT ABG pH ABG pCO2 ABG pO2 ABG HCO3 ABG Total CO2 ABG O2 Saturation Carbon Dioxide 18 L Creatinine Glucose 277 H POC Glucose (mg/dL) 134 H Calcium Phosphorus Troponin I 08/23/18 08/23/18 08/23/18 18:22 22:25 22:53 WBC MCHC Neutrophils # Lymphocytes # Monocytes # APTT ABG pH 7.08 L* ABG pCO2 ABG pO2 144 H ABG HCO3 11 L ABG Total CO2 12 L ABG O2 Saturation 97.6 H Carbon Dioxide Creatinine Glucose POC Glucose (mg/dL) 301 H 357 H Calcium Phosphorus Troponin I 08/24/18 08/24/18 08/24/18 04:05 04:05 04:05 WBC 24.5 H MCHC 30.9 L Neutrophils # 21.5 H Lymphocytes # 0.9 L Monocytes # 1.6 H APTT 39.0 H ABG pH ABG pCO2 ABG pO2 ABG HCO3 ABG Total CO2 ABG O2 Saturation Carbon Dioxide 10 L Creatinine 1.59 H Glucose 500 H POC Glucose (mg/dL) Calcium 8.3 L Phosphorus 4.7 H Troponin I 08/24/18 08/24/18 08/24/18 04:30 05:41 06:50 WBC MCHC Neutrophils # Lymphocytes # Monocytes # APTT ABG pH 7.11 L* ABG pCO2 29 L ABG pO2 131 H ABG HCO3 9 L* ABG Total CO2 10 L ABG O2 Saturation 97.7 H Carbon Dioxide Creatinine Glucose POC Glucose (mg/dL) 508 H 514 H Calcium Phosphorus Troponin I 08/24/18 08/24/18 08/24/18 07:59 08:00 08:02 WBC MCHC Neutrophils # Lymphocytes # Monocytes # APTT ABG pH 7.28 L ABG pCO2 30 L ABG pO2 110 H ABG HCO3 14 L ABG Total CO2 15 L ABG O2 Saturation 97.9 H Carbon Dioxide Creatinine Glucose POC Glucose (mg/dL) 505 H Calcium Phosphorus Troponin I 44.300 H* 08/24/18 09:02 WBC MCHC Neutrophils # Lymphocytes # Monocytes # APTT ABG pH ABG pCO2 ABG pO2 ABG HCO3 ABG Total CO2 ABG O2 Saturation Carbon Dioxide Creatinine Glucose POC Glucose (mg/dL) 464 H Calcium Phosphorus Troponin I - Diagnostic Findings Chest x-ray: image reviewed Assessment and Plan Assessment: Impression: #1 Acute non-ST segment elevation myocardial infarction status post stenting to the distal right coronary artery and stenting of the PDA branch of the right coronary artery with transient bradycardia requiring insertion of transvenous temporary pacemaker. He subsequently developed recurrent chest pain cardiogenic shock and was taken back to the [facility] and received stenting to the saphenous vein graft to the obtuse marginal branch of the circumflex. Insertion of intra- aortic balloon pump. Reposition of the TVP. Intubated and on mechanical ventilation. #2 Cardiogenic shock secondary to above #3 Previous history of coronary artery disease with coronary artery bypass grafting utilizing the GAVIRIA to the LAD, saphenous vein grafts to the diagonal and OM back in 2008. #4 Diabetes mellitus, type II. #5 Dementia. #6 Prostate cancer. #7 Previous history of pneumonia/sepsis. #8 Chronic back pain. #9 History of renal colic. #10 Hyperlipidemia. #11 Hypertension. Plan: The patient was seen and evaluated by Dr. Baldwin. Chest x-ray, ABGs and labs all reviewed. We will decrease the tidal volume to 450, decrease the FiO2 to 90%, increased the PEEP to 8. Add DuoNeb inhalations every 4 hours and when nec essary. Continue to decrease the FiO2 as tolerated while maintaining O2 saturations greater than 93%. Repeat chest x-ray and ABGs in the a.m. Continue with the current medications for now. No plans for daily interruption of sedation her weaning trials today as a patient remains critically ill. We will continue to follow and make further recommendations based on his clinical status. I, the cosigning physician, performed a history & physical examination of the patient. Lungs sounds with few scattered rhonchi, crackles in the bases. Maintaining good O2 saturations in the 90s on any percent FiO2 and a PEEP of 8 on the mechanical ventilator. I discussed the assessment and plan of care with my nurse practitioner, Josephine Manzo. I attest to the above consultation as dictate d by her.. Time with Patient: Greater than 30
[2018-08-24 11:10] LABS: Glucose,Whole Blood 403 mg/dL (75-99)
[2018-08-24] MEDS: IPRATROPIUM-ALBUTEROL 3 ML NEB INHALATION SCH ×4 (11:17→23:05)
[2018-08-24] MEDS ORDERED: ceFAZolin IN SWFI 2 GM/20 ML SYRINGE IVP SCH (11:45)
[2018-08-24 12:05] LABS: Glucose,Whole Blood 387 mg/dL (75-99)
[2018-08-24] MEDS ORDERED: HEPARIN SODIUM,PORCINE 5,000 UNIT/ML 1 ML VIAL IV STA ×2 (12:07→12:55)
[2018-08-24] MEDS: SODIUM CHLORIDE 0.9% 1,000 ML IV SCH ×4 (12:11→23:33)
[2018-08-24 12:52] LABS: Glucose,Whole Blood 362 mg/dL (75-99)
[2018-08-24 14:13] LABS: Glucose,Whole Blood 304 mg/dL (75-99)
[2018-08-24] MEDS: NOREPINEPHRINE 32 MG in SODIUM CHLORIDE 0.9% 218 ML IV SCH (14:23)
[2018-08-24] MEDS: DOPamine DRIP 800 MG in DEXTROSE/WATER 1 250ML.BAG IV SCH (14:25)
[2018-08-24] MEDS ORDERED: Potassium Replacement Protocol 1 EACH MISC MISCELLANE PRN (14:37)
[2018-08-24 15:05] LABS: Glucose,Whole Blood 287 mg/dL (75-99)
[2018-08-24 16:15] LABS: Glucose,Whole Blood 203 mg/dL (75-99)
[2018-08-24] MEDS ORDERED: HEPARIN SODIUM,PORCINE 5,000 UNIT/ML 1 ML VIAL IV ONE (16:16)
[2018-08-24] MEDS ORDERED: HEPARIN SODIUM,PORCINE 5,000 UNIT/ML 1 ML VIAL IV PRN (16:16)
[2018-08-24] MEDS ORDERED: HEPARIN SOD,PORK IN 0.45% NACL 25,000 UNIT in 0.45% NACL 1 250ML.BAG IV SCH (16:30)
[2018-08-24] MEDS: POTASSIUM CHLORIDE 20 MEQ in WATER FOR INJECTION 1 100ML.BAG IVPB SCH ×2 (16:33→18:18)
[2018-08-24 17:14] LABS: Glucose,Whole Blood 135 mg/dL (75-99)
[2018-08-24 18:32] LABS: Glucose,Whole Blood 112 mg/dL (75-99)
[2018-08-24 19:08] LABS: Glucose,Whole Blood 110 mg/dL (75-99)
[2018-08-24 20:15] LABS: Glucose,Whole Blood 122 mg/dL (75-99)
--- NOTE | 2018-08-24 20:19 | P.HPIM ---
History of Present Illness H&P Date: 08/24/18 Chief Complaint: chest pain history of presenting complaint: This is a 78-year-old patientof Dr. Dean Evangelista.chronic stable medical conditions include diabetes, hyperlipidemia, hypertension, osteoarthritis, obstructive sleep apnea. Patient's a prior history of coronary bypass. Patient presented to [facility] of with an acute non-Q-wave TX. He did undergo cardiac catheterization was found to have significant coronary artery disease. Patient was subsequently transferredhere yesterday for coronary intervention.patient was taken to the cardiac chemical laboratory chief. Intervention was carried out. Patient did not have a very smooth course and subsequently patient was transferred to the ICU subsequently. Patient was intubated. Saw this patient earlier this morning. Patient been on a balloon pump. Also had third degree heart block. Also had a transvenous pacemaker. included levo fed at 8 g, dopamine at 3 mics, insulin drip at 17 units an hour and propofol. Patient on the ventilator with FiO2 70% and a PEEP of 8. No family is present when I saw him this morning. Intervention was done by Dr. Garner and Dr. Taylor from cardiology. Dr. moya is the digital traffic coordinator.patient is also significantly acidotic for which patient is on a bicarbonate drip Review of systems: Could not be done as patient is intubated Current medications reviewed that included: DuoNeb, Lipitor, IV Ancef, Plavix, sodium bicarbonate drip, IV dopamine, IV heparin, insulin drip,IV levo fed drip, IV propofol drip and normal saline. social history: Does not smoke. Does not drink alcohol. Retired. Family history: Prostate cancer Physical examination: VITAL SIGNS: [99.4, 80, 20, 84 x 55, 96% on the ventilator] GENERAL: [BMI 35.6, laying in bed, intubated, ]. EYES: [Pupils equal. Conjunctiva hayden]l. HEENT: [External appearance of nose and ears normal, endotracheal tube in pl acel]. NECK: [JVD unable to assessd; masses not palpable]. HEART: [First and second heart sounds are normal; no edema]. LUNGS:[ Respiratory rate increase; decreased breath soundn]. ABDOMEN: [Soft, nontender, liver spleen not palpable, no masses palpable]. LYMPHATICS: [No lymph nodes palpable in the axilla and neck]. PSYCH: [sedated and intubated]l. NEUROLOGICAL: [Cranial nerves grossly intact; no facial asymmetry, pupils are reactivet Investigations, we will in the clinical context: White count 24.5, hemoglobin 13.2, platelets 189, blood gases showed a pH of 7.11, pO2 131 bicarb of 9 Potassium 3.9BUN 20, creatinine 1.59earlier it was 1.04 Chest x-ray film personally reviewed by me shows a portable film no obvious venous prominence Telemetry tracing personally reviewed by me shows possibly paced rhythm Assessment: -Acute non-Q-wave myocardial infarction -Coronary artery disease with severe significant disease to the left main and right coronary artery. 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 sleep apnea -Chronic bladder outflow obstruction -Severe metabolic acidosis multifactorial -Acute renal failure possibly ATN from cardiorenal syndrome from cardiology and it shock Plan: Close is guarded. Discuss with Dr. benites.patient before by Dr. Romero of digital traffic coordinator.current medications include.DuoNeb, Lipitor, IV Ancef, Plavix, sodium bicarbonate drip, IV dopamine, IV heparin, insulin drip,IV levo fed drip, IV propofol drip and normal saline. Patient also the balloon pump. Currently no family the bedside. Past Medical History Past Medical History: Coronary Artery Disease (CAD), Cancer, Diabetes Mellitus, Hyperlipidemia, Hypertension, Memory Impairment, Osteoarthritis (OA), Pneumonia, Prostate Disorder, Sleep Apnea/CPAP/BIPAP Additional Past Medical History / Comment(s): Prostate cancer-2010- tx with radiation. HAS ABD ADHESIONS, History of Any Multi-Drug Resistant Organisms: None Reported Past Surgical History: Appendectomy, Back Surgery, Cholecystectomy, Coronary Bypass/CABG, Heart Catheterization, Hernia Repair, Joint Replacement, Orthopedic Surgery Additional Past Surgical History / Comment(s): ORIF Rt Ankle. ORIF Rt Fibula Surgery. RT Knee Replacement. 2009 Triple CABG. Abdominal adhesions. Fatty tumor from neck. CTR jono. Abdominal surgery with mesh in 2001. Back nerve surgery. Rotator cuff-left shoulder. ING hernia repair w/ mesh. 3 fatty tumors removed 08/15/15, COLONOSCOPY Past Anesthesia/Blood Transfusion Reactions: No Reported Reaction Smoking Status: Never smoker - Past Family History Father History Unknown: Yes Family Medical History: Cancer Additional Family Medical History / Comment(s): PROSTATE CANCER Son(s) Family Medical History: Cancer Additional Family Medical History / Comment(s): TESTICULAR CANCER Mother Family Medical History: Coronary Artery Disease (CAD), Hypertension Sister(s) Family Medical History: Cancer Medications and Allergies Home Medications Medication Instructions Recorded Confirmed Type INSULIN LISPRO (humaLOG) [humaLOG] See Protocol SQ ACHS 11/07/13 08/23/18 History amLODIPine [Norvasc] 10 mg PO W/SUPPER 11/07/13 08/23/18 History Amiodarone [Cordarone] 200 mg PO W/SUPPER 03/23/15 08/23/18 History Cholecalciferol [Vitamin D3 (25 1,000 unit PO W/SUPPER 07/14/15 08/23/18 History Mcg = 1000 Iu)] Insulin Glargine [Lantus] 47 unit SQ QAM 07/14/15 08/23/18 History HYDROcodone/APAP 10-325MG [[place] 1 tab PO DAILY PRN 02/23/17 08/23/18 History 10-325] Tamsulosin [Flomax] 0.4 mg PO HS 07/14/17 08/23/18 History Meclizine [Antivert] 25 mg PO DAILY PRN 08/03/17 08/23/18 History Pravastatin Sodium [Pravachol] 40 mg PO DAILY 08/03/17 08/23/18 History Gabapentin 600 mg PO TID 02/14/18 08/23/18 History Multivitamins, Thera [Multivitamin 1 each PO DAILY 07/04/18 08/23/18 History (formulary)] Prevagen 1 each PO DAILY 07/04/18 08/23/18 History traMADol HCL [Ultram] 50 mg PO Q6H PRN 08/23/18 08/23/18 History Allergies Allergy/AdvReac Type Severity Reaction Status Date / Time Iodinated Contrast- Oral and Allergy Rash/Hives Verified 08/23/18 17:35 IV Dye iodine Allergy Rash/Hives Verified 08/23/18 17:35 Penicillins Allergy Swelling Verified 08/23/18 17:35 duloxetine [From Cymbalta] AdvReac PRICKLY Verified 08/23/18 17:35 FEELING IN HEAD povidone-iodine AdvReac Itchy,red Verified 08/23/18 17:35 [From Betadine] skin soap [From Betadine] AdvReac Itchy,red Verified 08/23/18 17:35 skin Surgical Scrub Allergy Unknown Itching, Uncoded 07/04/18 12:24 Red skin Physical Exam Vitals: Vital Signs Temp Pulse Pulse Resp BP BP Pulse Ox 08/24/18 08:00 99.4 F 80 18 95/60 97 08/24/18 07:30 80 20 95/54 97 08/24/18 07:00 80 18 77/55 97 08/24/18 06:30 80 18 78/52 95 08/24/18 06:00 80 18 98/66 95 08/24/18 05:30 80 25 H 144/110 98 08/24/18 05:15 80 16 92/70 98 08/24/18 05:00 80 17 105/72 98 08/24/18 04:45 80 16 82/49 98 08/24/18 04:30 80 18 94/44 98 08/24/18 04:00 98.0 F 80 17 89/66 97 08/24/18 03:30 80 16 100/58 97 08/24/18 03:00 80 22 93/54 97 08/24/18 02:30 80 20 99/59 98 08/24/18 02:00 80 20 93/50 99 08/24/18 01:30 80 21 96/52 98 08/24/18 01:00 80 22 96/52 99 08/24/18 00:30 97.3 F L 80 21 92/50 97 08/24/18 00:00 80 18 97/47 97 08/23/18 23:30 80 18 100/51 98 08/23/18 23:00 80 18 87/50 99 08/23/18 22:30 80 18 94/56 98 08/23/18 19:30 80 16 82/49 95 08/23/18 19:20 69 12 94/48 95 08/23/18 19:10 70 15 84/49 95 08/23/18 19:00 70 18 95 08/23/18 18:50 69 17 96 08/23/18 18:40 71 13 94 L 06/26/19 18:35 96 08/23/18 18:30 70 14 96 08/23/18 18:20 69 14 95 08/23/18 18:10 80 20 97 08/23/18 18:00 103 H 10 L 97 08/23/18 17:50 69 15 96 08/23/18 17:40 69 10 L 97 08/23/18 17:30 71 14 97 08/23/18 17:20 72 12 93 L 08/23/18 17:10 73 15 95 08/23/18 17:05 16 08/23/18 17:00 96.1 F L 67 14 95 08/23/18 13:12 61 18 137/93 Intake and Output 08/23/18 08/24/18 08/24/18 22:59 06:59 14:59 Intake Total 716.114 7401.09 510.537 Output Total 420 458 50 Balance 923.648 3930.09 460.537 Intake: IV 396 1748 281 0.9 NaCl- Primary line 150 1200 150 Arterial Sheath pressure 46 48 6 bag Sodium Bicarbonate 500 125 infusion Sodium Chloride 0.9% 1, 200 000 ml @ 100 mls/hr IV . Q10H AALIYAH Rx#:[id number] Intake, IV Titration 169.036 9.09 229.537 Amount DOPamine DRIP 800 mg In 79.862 87.426 Dextrose/Water 1 250ml. bag @ 10 MCG/KG/MIN 17. 813 mls/hr IV .Q14H3M AALYIAH Rx#:[id number] Insulin Regular 100 unit 9.09 30.3 In Sodium Chloride 0.9% 100 ml @ Per Protocol IV .Q0M AALIYAH Rx#:[id number] Norepinephrine 32 mg In 89.174 102.011 Sodium Chloride 0.9% 218 ml @ 0.05 MCG/KG/MIN 2. 227 mls/hr IV .Q24H AALIYAH Rx#:[id number] Propofol 1,000 mg In 9.8 Empty Bag 1 bag @ Titrate IV .Q0M AALIYAH Rx#: [id number] Output: Gastric Drainage 140 Urine 420 318 50 Other: Voiding Method Indwelling Catheter Indwelling Catheter Weight 95 kg 103.1 kg ABP, PAP, CO, CI - Last 8 Hours Arterial Blood Pressure 90/39 Arterial Blood Pressure 92/37 Arterial Blood Pressure 91/35 Arterial Blood Pressure 91/46 Arterial Blood Pressure 95/33 Arterial Blood Pressure 101/34 Arterial Blood Pressure 86/45 Arterial Blood Pressure 84/45 Arterial Blood Pressure 82/30 Arterial Blood Pressure 81/34 Arterial Blood Pressure 93/31 Arterial Blood Pressure 85/26 Arterial Blood Pressure 102/37 Arterial Blood Pressure 87/26 Arterial Blood Pressure 87/30 Results CBC & Chem 7: 08/24/18 04:05 08/24/18 14:00 Labs: Abnormal Lab Results - Last 24 Hours (Table) 08/23/18 08/23/18 08/23/18 Range/Units 13:38 17:55 17:55 WBC (3.8-10.6) k/uL MCHC (31.0-37.0) g/dL Neutrophils # 8.0 H (1.3-7.7) k/uL Lymphocytes # (1.0-4.8) k/uL Monocytes # (0-1.0) k/uL APTT (22.0-30.0) sec ABG pH (7.35-7.45) ABG pCO2 (35-45) mmHg ABG pO2 (83-108) mmHg ABG HCO3 (21-25) mmol/L ABG Total CO2 (19-24) mmol/L ABG O2 Saturation (94-97) % Carbon Dioxide 18 L (22-30) mmol/L Creatinine (0.66-1.25) mg/dL Glucose 277 H (74-99) mg/dL POC Glucose (mg/dL) 134 H (75-99) mg/dL Calcium (8.4-10.2) mg/dL Phosphorus (2.5-4.5) mg/dL Troponin I (0.000-0.034) ng/mL 08/23/18 08/23/18 08/23/18 Range/Units 18:22 22:25 22:53 WBC (3.8-10.6) k/uL MCHC (31.0-37.0) g/dL Neutrophils # (1.3-7.7) k/uL Lymphocytes # (1.0-4.8) k/uL Monocytes # (0-1.0) k/uL APTT (22.0-30.0) sec ABG pH 7.08 L* (7.35-7.45) ABG pCO2 (35-45) mmHg ABG pO2 144 H (83-108) mmHg ABG HCO3 11 L (21-25) mmol/L ABG Total CO2 12 L (19-24) mmol/L ABG O2 Saturation 97.6 H (94-97) % Carbon Dioxide (22-30) mmol/L Creatinine (0.66-1.25) mg/dL Glucose (74-99) mg/dL POC Glucose (mg/dL) 301 H 357 H (75-99) mg/dL Calcium (8.4-10.2) mg/dL Phosphorus (2.5-4.5) mg/dL Troponin I (0.000-0.034) ng/mL 08/24/18 08/24/18 08/24/18 Range/Units 04:05 04:05 04:05 WBC 24.5 H (3.8-10.6) k/uL MCHC 30.9 L (31.0-37.0) g/dL Neutrophils # 21.5 H (1.3-7.7) k/uL Lymphocytes # 0.9 L (1.0-4.8) k/uL Monocytes # 1.6 H (0-1.0) k/uL APTT 39.0 H (22.0-30.0) sec ABG pH (7.35-7.45) ABG pCO2 (35-45) mmHg ABG pO2 (83-108) mmHg ABG HCO3 (21-25) mmol/L ABG Total CO2 (19-24) mmol/L ABG O2 Saturation (94-97) % Carbon Dioxide 10 L (22-30) mmol/L Creatinine 1.59 H (0.66-1.25) mg/dL Glucose 500 H (74-99) mg/dL POC Glucose (mg/dL) (75-99) mg/dL Calcium 8.3 L (8.4-10.2) mg/dL Phosphorus 4.7 H (2.5-4.5) mg/dL Troponin I (0.000-0.034) ng/mL 08/24/18 08/24/18 08/24/18 Range/Units 04:30 05:41 06:50 WBC (3.8-10.6) k/uL MCHC (31.0-37.0) g/dL Neutrophils # (1.3-7.7) k/uL Lymphocytes # (1.0-4.8) k/uL Monocytes # (0-1.0) k/uL APTT (22.0-30.0) sec ABG pH 7.11 L* (7.35-7.45) ABG pCO2 29 L (35-45) mmHg ABG pO2 131 H (83-108) mmHg ABG HCO3 9 L* (21-25) mmol/L ABG Total CO2 10 L (19-24) mmol/L ABG O2 Saturation 97.7 H (94-97) % Carbon Dioxide (22-30) mmol/L Creatinine (0.66-1.25) mg/dL Glucose (74-99) mg/dL POC Glucose (mg/dL) 508 H 514 H (75-99) mg/dL Calcium (8.4-10.2) mg/dL Phosphorus (2.5-4.5) mg/dL Troponin I (0.000-0.034) ng/mL 08/24/18 08/24/18 08/24/18 Range/Units 07:59 08:00 08:02 WBC (3.8-10.6) k/uL MCHC (31.0-37.0) g/dL Neutrophils # (1.3-7.7) k/uL Lymphocytes # (1.0-4.8) k/uL Monocytes # (0-1.0) k/uL APTT (22.0-30.0) sec ABG pH 7.28 L (7.35-7.45) ABG pCO2 30 L (35-45) mmHg ABG pO2 110 H (83-108) mmHg ABG HCO3 14 L (21-25) mmol/L ABG Total CO2 15 L (19-24) mmol/L ABG O2 Saturation 97.9 H (94-97) % Carbon Dioxide (22-30) mmol/L Creatinine (0.66-1.25) mg/dL Glucose (74-99) mg/dL POC Glucose (mg/dL) 505 H (75-99) mg/dL Calcium (8.4-10.2) mg/dL Phosphorus (2.5-4.5) mg/dL Troponin I 44.300 H* (0.000-0.034) ng/mL 06/27/19 Range/Units 09:02 WBC (3.8-10.6) k/uL MCHC (31.0-37.0) g/dL Neutrophils # (1.3-7.7) k/uL Lymphocytes # (1.0-4.8) k/uL Monocytes # (0-1.0) k/uL APTT (22.0-30.0) sec ABG pH (7.35-7.45) ABG pCO2 (35-45) mmHg ABG pO2 (83-108) mmHg ABG HCO3 (21-25) mmol/L ABG Total CO2 (19-24) mmol/L ABG O2 Saturation (94-97) % Carbon Dioxide (22-30) mmol/L Creatinine (0.66-1.25) mg/dL Glucose (74-99) mg/dL POC Glucose (mg/dL) 464 H (75-99) mg/dL Calcium (8.4-10.2) mg/dL Phosphorus (2.5-4.5) mg/dL Troponin I (0.000-0.034) ng/mL Microbiology - Last 24 Hours (Table) 08/23/18 23:32 Gram Stain - Preliminary Sputum Sputum Culture - Preliminary
[2018-08-24 21:12] LABS: Glucose,Whole Blood 123 mg/dL (75-99)
[2018-08-24 22:08] LABS: Glucose,Whole Blood 147 mg/dL (75-99)
[2018-08-24 23:03] LABS: Glucose,Whole Blood 161 mg/dL (75-99)
[2018-08-25 00:07] LABS: Glucose,Whole Blood 157 mg/dL (75-99)
[2018-08-25 01:16] LABS: Glucose,Whole Blood 147 mg/dL (75-99)
[2018-08-25] MEDS: INSULIN REGULAR 100 UNIT in SODIUM CHLORIDE 0.9% 100 ML IV SCH (01:22)
[2018-08-25] MEDS: POTASSIUM CHLORIDE 10 MEQ in WATER FOR INJECTION 1 100ML.BAG IVPB SCH ×2 (02:10→03:15)
[2018-08-25 02:17] LABS: Glucose,Whole Blood 131 mg/dL (75-99)
[2018-08-25 02:33] LABS: ABG Base Excess 5.5 mmol/L; ABG HCO3 29 mmol/L (21-25); ABG Oxygen Saturation 95.3 % (94-97); ABG PCO2 36 mmHg (35-45); ABG PH 7.51 (7.35-7.45); ABG PO2 68 mmHg (83-108); ABG TCO2 30 mmol/L (19-24)
[2018-08-25 02:35] LABS: Allen Test Performed? no
[2018-08-25] MEDS: IPRATROPIUM-ALBUTEROL 3 ML NEB INHALATION SCH ×6 (02:59→23:20)
[2018-08-25 03:03] LABS: Glucose,Whole Blood 139 mg/dL (75-99)
[2018-08-25 04:09] LABS: Glucose,Whole Blood 159 mg/dL (75-99)
[2018-08-25] MEDS: ACETAMINOPHEN TAB 325 MG TAB PO PRN (04:59)
[2018-08-25 05:13] LABS: Glucose,Whole Blood 158 mg/dL (75-99)
[2018-08-25] MEDS: DEXTROSE 5% IN WATER 1,000 ML with SODIUM BICARB (1 MEQ/ML) 150 ML IV SCH (05:47)
[2018-08-25] MEDS: PROPOFOL 1,000 MG in EMPTY BAG 1 BAG IV SCH ×6 (05:47→23:03)
[2018-08-25 06:05] LABS: Basophils % (A) 0 %; Eosinophils # (A) 0.1 k/uL (0-0.7); Eosinophils % (A) 0 %; HCT 32.9 % (39.0-53.0); HGB 11.3 gm/dL (13.0-17.5); Lymphocytes # (A) 0.9 k/uL (1.0-4.8); Lymphocytes % (A) 8 %; MCH 31.3 pg (25.0-35.0); MCHC 34.3 g/dL (31.0-37.0); Mean Platelet Volume 9.8; Monocytes # (A) 0.7 k/uL (0-1.0); Monocytes % (A) 5 %; Neutrophils # (A) 10.4 k/uL (1.3-7.7); Neutrophils % (A) 85 %; Platelet Count 106 k/uL (150-450); RBC 3.61 m/uL (4.30-5.90); RDW 15.5 % (11.5-15.5); WBC 12.2 k/uL (3.8-10.6)
[2018-08-25 06:09] LABS: INR 1.1 (<1.2); Partial Thromboplastin Time 74.6 sec (22.0-30.0); Prothrombin Time 11.2 sec (9.0-12.0)
[2018-08-25 06:13] LABS: MCV 91.2 fL (80.0-100.0)
[2018-08-25 06:22] LABS: Glucose,Whole Blood 151 mg/dL (75-99)
[2018-08-25 07:11] LABS: Calcium 7.4 mg/dL (8.4-10.2); Phosphorus 3.2 mg/dL (2.5-4.5); Potassium 3.6 mmol/L (3.5-5.1)
[2018-08-25 07:14] LABS: Glucose,Whole Blood 137 mg/dL (75-99)
[2018-08-25] MEDS ORDERED: FUROSEMIDE 10 MG/ML 4 ML VIAL IV STA (07:27)
[2018-08-25] MEDS ORDERED: POTASSIUM CHLORIDE ER 20 MEQ TAB.ER PO SCH (08:00)
--- NOTE | 2018-08-25 08:13 | P.NPCON ---
History of Present Illness - Reason for Consult acute renal failure - History of Present Illness Reason for consultation: Acute kidney injury History of present illness: Patient is a 78-year-old male seen in consultation for acute kidney injury. His baseline creatinine is near 1 and peaked at 1.59 on August 24. It is down to 1.04 today. Patient initially presented to [facility] with chest pain. He underwent cardiac catheterization on August 22 and then subsequently transferred here for intervention. He underwent catheterization again on the and had 2 stents placed to the RCA as well as a transvenous temporary pacemaker. Patient underwent coronary angiography on August 23 as well and this time had a stent placed of the saphenous vein graft and intra-aortic balloon pump placement. He is currently maintained on bicarb drip as well as normal saline. He is nonoliguric. He is intubated and sedated. Acidosis has resolved. In fact he is now alkalotic. He is on low-dose dopamine. He is off Levophed. Vital signs are stable. Currently on dopamine. General: The patient appeared well nourished and normally developed. HEENT: Head exam is unremarkable. Neck is without jugular venous distension. Intubated. LUNGS: Lungs are clear to auscultation and percussion. Breath sounds decreased. HEART: Rate and Rhythm are regular. First and second heart sounds normal. No murmurs, rubs or gallops. ABDOMEN: Abdominal exam reveals normal bowel sounds. Non-tender and non-distended. EXTREMITITES: No clubbing, cyanosis, or edema. Past Medical History Past Medical History: Coronary Artery Disease (CAD), Cancer, Diabetes Mellitus, Hyperlipidemia, Hypertension, Memory Impairment, Osteoarthritis (OA), Pneumonia, Prostate Disorder, Sleep Apnea/CPAP/BIPAP Additional Past Medical History / Comment(s): Prostate cancer-2010- tx with radiation. HAS ABD ADHESIONS, History of Any Multi-Drug Resistant Organisms: None Reported Past Surgical History: Appendectomy, Back Surgery, Cholecystectomy, Coronary Bypass/CABG, Heart Catheterization, Hernia Repair, Joint Replacement, Orthopedic Surgery Additional Past Surgical History / Comment(s): ORIF Rt Ankle. ORIF Rt Fibula Surgery. RT Knee Replacement. 2008 Triple CABG. Abdominal adhesions. Fatty tumor from neck. CTR jono. Abdominal surgery with mesh in 2001. Back nerve surgery. Rotator cuff-left shoulder. ING hernia repair w/ mesh. 3 fatty tumors removed 08/15/15, COLONOSCOPY Past Anesthesia/Blood Transfusion Reactions: No Reported Reaction Smoking Status: Never smoker - Past Family History Father History Unknown: Yes Family Medical History: Cancer Additional Family Medical History / Comment(s): PROSTATE CANCER Son(s) Family Medical History: Cancer Additional Family Medical History / Comment(s): TESTICULAR CANCER Mother Family Medical History: Coronary Artery Disease (CAD), Hypertension Sister(s) Family Medical History: Cancer Medications and Allergies Home Medications Medication Instructions Recorded Confirmed Type INSULIN LISPRO (humaLOG) [humaLOG] See Protocol SQ ACHS 11/07/13 08/23/18 History amLODIPine [Norvasc] 10 mg PO W/SUPPER 11/07/13 08/23/18 History Amiodarone [Cordarone] 200 mg PO W/SUPPER 03/23/15 08/23/18 History Cholecalciferol [Vitamin D3 (25 1,000 unit PO W/SUPPER 07/14/15 08/23/18 History Mcg = 1000 Iu)] Insulin Glargine [Lantus] 47 unit SQ QAM 07/14/15 08/23/18 History HYDROcodone/APAP 10-325MG [[place] 1 tab PO DAILY PRN 02/23/17 08/23/18 History 10-325] Tamsulosin [Flomax] 0.4 mg PO HS 07/14/17 08/23/18 History Meclizine [Antivert] 25 mg PO DAILY PRN 08/03/17 08/23/18 History Pravastatin Sodium [Pravachol] 40 mg PO DAILY 08/03/17 08/23/18 History Gabapentin 600 mg PO TID 02/14/18 08/23/18 History Multivitamins, Thera [Multivitamin 1 each PO DAILY 07/04/18 08/23/18 History (formulary)] Prevagen 1 each PO DAILY 07/04/18 08/23/18 History traMADol HCL [Ultram] 50 mg PO Q6H PRN 08/23/18 08/23/18 History Allergies Allergy/AdvReac Type Severity Reaction Status Date / Time Iodinated Contrast- Oral and Allergy Rash/Hives Verified 08/23/18 17:35 IV Dye iodine Allergy Rash/Hives Verified 08/23/18 17:35 Penicillins Allergy Swelling Verified 08/23/18 17:35 duloxetine [From Cymbalta] AdvReac PRICKLY Verified 08/23/18 17:35 FEELING IN HEAD povidone-iodine AdvReac Itchy,red Verified 08/23/18 17:35 [From Betadine] skin soap [From Betadine] AdvReac Itchy,red Verified 08/23/18 17:35 skin Surgical Scrub Allergy Unknown Itching, Uncoded 07/04/18 12:24 Red skin Physical Exam Vitals: Vital Signs Temp Pulse Resp BP Pulse Ox 08/25/18 07:34 70 08/25/18 07:15 80 08/25/18 07:00 89 20 94/62 97 08/25/18 06:30 80 16 81/48 93 L 08/25/18 06:00 82 16 87/59 94 L 08/25/18 05:30 89 18 81/55 93 L 08/25/18 05:00 100.7 F H 90 19 99/67 93 L 08/25/18 04:30 90 18 102/57 93 L 08/25/18 04:00 90 18 84/57 91 L 08/25/18 03:49 92 L 08/25/18 03:30 86 20 113/52 90 L 08/25/18 03:09 85 08/25/18 03:00 86 18 95/53 93 L 08/25/18 02:59 85 08/25/18 02:30 86 16 109/58 95 08/25/18 02:00 86 17 83/60 91 L 08/25/18 01:30 85 23 89/48 95 08/25/18 01:00 86 20 104/54 90 L 08/25/18 00:30 78 22 94/55 91 L 08/25/18 00:00 81 24 97/54 88 L 08/24/18 23:30 87 20 91/71 92 L 08/24/18 23:21 87 08/24/18 23:09 87 08/24/18 23:00 81 17 117/56 93 L 08/24/18 22:30 81 17 95/58 92 L 08/24/18 22:00 84 17 96/56 92 L 08/24/18 21:30 87 16 119/61 91 L 08/24/18 21:00 86 17 89/56 92 L 08/24/18 20:30 84 16 89/63 92 L 08/24/18 20:00 99.5 F 85 17 95/56 93 L 08/24/18 19:30 84 16 106/57 92 L 08/24/18 19:17 85 08/24/18 19:06 83 17 08/24/18 19:00 83 16 84/58 90 L 08/24/18 18:30 85 16 80/58 90 L 08/24/18 18:00 80 18 109/58 92 L 08/24/18 17:30 78 20 89/61 92 L 08/24/18 17:00 81 20 93/49 90 L 08/24/18 16:30 78 20 84/53 93 L 08/24/18 16:08 76 18 08/24/18 16:00 80 20 106/60 93 L 08/24/18 15:52 74 18 08/24/18 15:30 74 20 81/55 93 L 08/24/18 15:00 79 20 107/60 94 L 08/24/18 14:30 79 20 106/58 91 L 08/24/18 14:00 99.3 F 80 18 105/64 94 L 08/24/18 13:30 80 18 107/58 93 L 08/24/18 13:00 80 20 106/60 96 08/24/18 12:30 80 16 95/57 93 L 08/24/18 12:00 100.3 F H 80 20 92/61 94 L 08/24/18 11:36 80 08/24/18 11:30 80 20 79/60 95 08/24/18 11:20 83 08/24/18 11:00 80 20 96/59 97 08/24/18 10:30 80 20 80/51 96 08/24/18 10:00 99.4 F 80 20 84/55 96 08/24/18 09:30 80 20 91/65 97 08/24/18 09:00 80 20 93/66 96 08/24/18 08:30 80 20 92/58 97 Intake and Output 08/24/18 08/25/18 08/25/18 22:59 06:59 14:59 Intake Total 2776.653 2713.219 294.2 Output Total 655 1540 470 Balance 2121.653 1173.219 -175.8 Intake: IV 2598 2248 281 0.9 NaCl- Primary line 1200 1200 150 Arterial Sheath pressure 48 48 6 bag Potassium Chloride 20 meq 300 In Water For Injection 1 100ml.bag @ 50 mls/hr IVPB Q2H AALIYAH Rx#: [id number] Sodium Bicarbonate 1000 1000 125 infusion ceFAZolin 1,000 mg In 50 Sodium Chloride 0.9% 50 ml @ 100 mls/hr IVPB Q8HR AALIYAH Rx#:[id number] Intake, IV Titration 178.653 465.219 13.2 Amount Insulin Regular 100 unit 83.847 15.683 13.2 In Sodium Chloride 0.9% 100 ml @ Per Protocol IV .Q0M AALIYAH Rx#:[id number] Norepinephrine 32 mg In 4.142 Sodium Chloride 0.9% 218 ml @ 0.05 MCG/KG/MIN 2. 227 mls/hr IV .Q24H AALIYAH Rx#:[id number] Potassium Chloride 10 meq 200 In Water For Injection 1 100ml.bag @ 100 mls/hr IVPB Q1H AALIYAH Rx#: [id number] Potassium Chloride 20 meq 100 In Water For Injection 1 100ml.bag @ 50 mls/hr IVPB Q2H AALIYAH Rx#: [id number] Propofol 1,000 mg In 90.664 99.536 Empty Bag 1 bag @ Titrate IV .Q0M AALIYAH Rx#: [id number] ceFAZolin 1,000 mg In 50 Sodium Chloride 0.9% 50 ml @ 100 mls/hr IVPB Q8HR AALIYAH Rx#:[id number] Output: Gastric Drainage 200 30 Urine 455 1510 470 Other: Voiding Method Indwelling Catheter Indwelling Catheter Weight 106.7 kg ABP, PAP, CO, CI - Last 8 Hours Arterial Blood Pressure 95/45 Arterial Blood Pressure 99/46 Arterial Blood Pressure 78/43 Arterial Blood Pressure 86/45 Arterial Blood Pressure 89/45 Arterial Blood Pressure 99/46 Arterial Blood Pressure 100/48 Arterial Blood Pressure 93/45 Arterial Blood Pressure 97/47 Arterial Blood Pressure 95/48 Arterial Blood Pressure 89/47 Arterial Blood Pressure 107/52 Arterial Blood Pressure 85/45 Arterial Blood Pressure 92/44 Results - Lab Results Most recent lab results ABG pH 7.51 (7.35-7.45) H 08/25/18 02:28 ABG pCO2 36 mmHg (35-45) 08/25/18 02:28 ABG pO2 68 mmHg (83-108) L 08/25/18 02:28 ABG HCO3 29 mmol/L (21-25) H 08/25/18 02:28 ABG O2 Saturation 95.3 % (94-97) 08/25/18 02:28 Calcium 7.4 mg/dL (8.4-10.2) L 08/25/18 05:32 Phosphorus 3.2 mg/dL (2.5-4.5) 08/25/18 05:32 Magnesium 2.0 mg/dL (1.6-2.3) 08/25/18 05:32 08/25/18 05:32 08/25/18 05:32 Assessment and Plan Plan: Assessment: 1. Acute kidney injury mostly prerenal secondary to hemodynamic instability. Creatinine peaked at 1.59 his admission and is down to 1.04 today. Baseline c reatinine near 1. 2. Coronary artery disease status post total 3 catheterizations done on August 22 and . Patient had 2 stents placed to the RCA, stent placed to the saphenous vein graft, transvenous pacemaker as well as an intra-aortic balloon pump. 3. Cardiogenic shock. 4. Metabolic acidosis secondary to acute kidney injury. Resolved. Now he is actually alkalotic. 5. Insulin-dependent diabetes mellitus. Plan: Discontinue bicarbonate drip. Decreas rate of normal saline to 125 mL an hour. Wean dopamine as blood pressure able to tolerate. Continue to monitor renal function and urine output closely. Need to monitor for contrast-induced nephropathy which will typically peak at 48-72 hours. Check urinalysis. Thank you for the consultation. I will continue to follow the patient with you during his hospital stay.
--- NOTE | 2018-08-25 08:19 | XR ---
EXAMINATION TYPE: XR chest 1V DATE OF EXAM: 08/25/2018 COMPARISON: Prior chest x-ray 08/24/2018 HISTORY: Shortness of breath TECHNIQUE: Single frontal view of the chest is obtained. FINDINGS: Patient is post median sternotomy. Heart remains enlarged. Endotracheal tube and orogastri c tube are overlying appropriate positions. Intra-aortic aortic balloon pump marker is at the level o f the thoracic transverse aorta. No evident pneumothorax. Interstitium is increased. Veil-like densit y in the right hemithorax may represent posterior layering of a pleural effusion. Patient is rotated and there are overlying cardiac leads. Probable transvenous pacemaker in place coursing from inferior extent of the exam, additional leads are present. Right hemidiaphragm is obscured. No evident pneumo thorax. IMPRESSION: Correlate for volume overload, pulmonary venous hypertension and interstitial edema, the re may be basilar atelectasis. Possible associated effusion.
[2018-08-25 08:22] LABS: Glucose,Whole Blood 137 mg/dL (75-99)
[2018-08-25] MEDS: DOPamine DRIP 800 MG in DEXTROSE/WATER 1 250ML.BAG IV SCH ×2 (08:43→12:24)
[2018-08-25] MEDS: SODIUM CHLORIDE 0.9% 1,000 ML IV SCH ×3 (08:46→16:03)
[2018-08-25] MEDS: ASPIRIN 81 MG PO SCH (08:48)
[2018-08-25] MEDS: MULTIVITAMINS, THERA 1 EACH TAB PO SCH (08:48)
[2018-08-25] MEDS: CLOPIDOGREL 75 MG TAB PO SCH (08:48)
[2018-08-25] MEDS: CHLORHEXIDINE GLUCONATE 15 ML CUP MUCOUS MEM SCH ×2 (08:48→20:24)
[2018-08-25] MEDS: ATORVASTATIN 40 MG TAB PO SCH (08:48)
[2018-08-25] MEDS: PREVAGEN PO SCH (08:49)
[2018-08-25 09:35] LABS: Glucose,Whole Blood 122 mg/dL (75-99)
--- NOTE | 2018-08-25 09:45 | P.PN ---
Subjective Progress Note Date: 08/25/18 Principal diagnosis: Acute non-ST segment elevated myocardial infarction, status post PCI and stenting of the distal RCA, and stenting of the PDA branch of the right coronary artery, and PCI and stenting of the SVG to the OM. Cardiogenic shock, bradycardia This is an 78-year-old gentleman who follows with Dr. Evangelista as his primary care physician. He has a history of coronary artery disease with previous coronary artery bypass grafting in 2008 where he received a GAVIRIA to the LAD, SVG to the diagonal and SVG to the OM, diabetes mellitus type 2, dementia, pneumonia/sepsis, prostate cancer, chronic back pain, renal colic, hyperlipidemia, hypertension. He presented to [facility] on 08/22/2018 with complaints of chest pain. This was initially described as sharp and stabbing per the ER notes. No shortness of breath. He was given nitroglycerin and the EMS with minimal improvement. He was admitted there for the same. On 08/23/2018 he had ongoing chest pain and had undergone cardiac catheterization at [facility] was found to have an occluded left main, severe disease involving the distal right coronary artery, patent GAVIRIA to the LAD, occluded SVG to the diagonal and in her immediate to severe disease involving the ostial of the SVG to the OM. He was found to have an acute non-ST segment elevation myocardial infarction subsequent transferred here yesterday where he did undergo successful stenting of the distal right coronary artery and PDA b ranch of the coronary artery. He did develop occlusion of the distal branches transiently which were opened up and the patient went into complete heart block and received a transvenous temporary pacemaker. He was then placed in the intensive care unit. Later he developed ongoing chest discomfort, hypotension and taken back to the [facility]. He subsequently received intra-aortic balloon pump and stenting of the saphenous vein grafts to the obtuse marginal branch of the circumflex. At that time he required intubation mechanical ventilatory support. He was again returned to the ICU. He is seen today in consultation. He is currently on mechanical ventilator assist control of 16, tidal volume 500, FiO2 100% and a PEEP of 5. Most recent blood gases reveal a P O2 of 110, pCO2 29, pH of 7.28. Arterial blood gases prior to that were a P O2 131, pCO2 28 and a pH of 7.11 where he did receive 2 A of sodium bicarb and then increased the sodium bicarb drip which has 3 A of bicarb to 125 ML's per hour. He is sedated with propofol at 15 mcg/kg/m. He has dopamine at 3 mcg/kg/m. Insulin drip at 17 units per hour, norepinephrine at 20 mcg/m, 0.9 normal saline at 150 ML's per hour. His intra-aortic balloon pump is in place at 1:1. Chest x-ray reveals evidence of mild congestive heart failure. Current temperature 99.4. Blood pressure 94/60 On 08/25/2018 patient was seen in follow-up in the intensive care unit. He remains sedated, and intubated on mechanical ventilator, current vent settings are assist-control mode of ventilation with a rate of 16, tidal 01/01/1952, FiO2 100%, and PEEP of 8. The gases were reviewed, showing pO2 of 68, pCO2 36, and pH of 7.50. Patient's bicarbonate drip has been discontinued, we will increase the PEEP up to 12. He remains on intra-aortic balloon pump, with one-to-one augmentation, transvenous pacemaker is in place, the rate of 90, pacing 100%, underlying rhythm is bradycardia, possibly sinus, with first-degree heart block. Pressure is 80s to 90s systolic, with 50s diastolic, patient has been having intermittent low-grade fevers, T-max in last 24 hours is 100.7F this morning. Blood cultures, sputum culture urine culture have been sent, pending, preliminary sputum Gram stain showed no epithelial cells, rare gram-positive cocci. Final cultures pending. Today's labs have been reviewed, showing white blood cell count of 12.2, chiefly trending down, from 24.5 on yesterday's labs. Hemoglobin of 11.3, platelet count of 106, serum sodium is 143, potassium is 3.6, chloride is 109, CO2 is 31, B1 of 18, creatinine is 1.04. Patient's troponin topped at 71.9. Lung sounds are diminished. Distal pulses are intact. Today's chest x-ray has been reviewed, showing volume overload, interstitial edema, basilar atelectasis, and bilateral pleural effusions. Patient has been weaned off the levo fed drip, remains on dobutamine drip, currently at 3 mics per kilo per minute, heparin drip per weight-based protocol, insulin drip is on hold, Diprivan and is at 40 mics per kilo per minute. Objective - Vital Signs Vital signs: Vital Signs Temp 97.7 F 08/25/18 08:00 Pulse 89 08/25/18 09:00 Resp 27 H 08/25/18 09:00 BP 84/51 08/25/18 09:00 Pulse Ox 93 L 08/25/18 09:00 Intake & Output 08/24/18 08/25/18 08/25/18 18:59 06:59 18:59 Intake Total 4343.454 3987.683 670.2 Output Total 800 1775 1475 Balance 3543.454 2212.683 -804.8 Weight 106.7 kg Intake: IV 3822 3522 287 0.9 NaCl- Primary line 1800 1800 150 Arterial Sheath pressure 72 72 12 bag Magnesium Sulfate-D5w Pmx 200 1 gm In Dextrose/Water 1 100ml.bag @ 100 mls/hr IVPB Q1H [facility] Rx#: [id number] Potassium Chloride 20 meq 200 100 In Water For Injection 1 100ml.bag @ 50 mls/hr IVPB Q2H [facility] Rx#: [id number] Sodium Bicarbonate 1500 1500 125 infusion ceFAZolin 1,000 mg In 50 50 Sodium Chloride 0.9% 50 ml @ 100 mls/hr IVPB Q8HR [facility] Rx#:[id number] Intake, IV Titration 521.454 465.683 383.2 Amount DOPamine DRIP 800 mg In 121.984 Dextrose/Water 1 250ml. bag @ 10 MCG/KG/MIN 17. 813 mls/hr IV .Q14H3M [facility] Rx#:[id number] Heparin Sod,Pork in 0.45% 20 NaCl 25,000 unit In 0.45 % NaCl 1 250ml.bag @ 9. 699 UNITS/KG/HR 10 mls/hr IV .Q24H [facility] Rx#: [id number] Insulin Regular 100 unit 173.670 15.683 13.2 In Sodium Chloride 0.9% 100 ml @ Per Protocol IV .Q0M [facility] Rx#:[id number] Norepinephrine 32 mg In 0 Sodium Chloride 0.9% 218 ml @ 0 mls/hr IV .[facility] Rx#:[id number] Norepinephrine 32 mg In 125.800 Sodium Chloride 0.9% 218 ml @ 0.05 MCG/KG/MIN 2. 227 mls/hr IV .Q24H [facility] Rx#:[id number] Potassium Chloride 10 meq 200 In Water For Injection 1 100ml.bag @ 100 mls/hr IVPB Q1H [facility] Rx#: [id number] Potassium Chloride 20 meq 100 In Water For Injection 1 100ml.bag @ 50 mls/hr IVPB Q2H [facility] Rx#: [id number] Propofol 1,000 mg In 100.0 100.000 Empty Bag 1 bag @ Titrate IV .Q0M [facility] Rx#: [id number] Sodium Chloride 0.9% 1, 250 000 ml @ 125 mls/hr IV . Q8H [facility] Rx#:[id number] ceFAZolin 1,000 mg In 50 100 Sodium Chloride 0.9% 50 ml @ 100 mls/hr IVPB Q8HR [facility] Rx#:[id number] Output: Gastric Drainage 200 30 Urine 600 1745 1475 Other: Voiding Method Indwelling Catheter Indwelling Catheter ABP, PAP, CO, CI - Last Documented Arterial Blood Pressure 93/45 - Exam GENERAL EXAM: Sedated, intubated, obese, 78-year-old white male comfortable in no apparent distress. HEAD: Normocephalic/atraumatic. EYES: Normal reaction of pupils, equal size. Conjunctiva pink, sclera white. NOSE: Clear with pink turbinates. THROAT: No erythema or exudates. NECK: No masses, no JVD, no thyroid enlargement, no adenopathy. CHEST: No chest wall deformity. Symmetrical expansion. LUNGS: Equal air entry with no crackles, wheeze, rhonchi or dullness. CVS: Regular rate and rhythm, normal S1 and S2, no gallops, no murmurs, no rubs ABDOMEN: Soft, nontender. No hepatosplenomegaly, normal bowel sounds, no guarding or rigidity. EXTREMITIES: No clubbing, no edema, no cyanosis, 2+ pulses and upper and lower extremities. Right groin TVP, and IABP catheter, patient is on augmentation 121. MUSCULOSKELETAL: Muscle strength and tone normal. SPINE: No scoliosis or deformity SKIN: No rashes CENTRAL NERVOUS SYSTEM: Sedated. No focal deficits, tone is normal in all 4 extremities. PSYCHIATRIC: Sedated. - Labs CBC & Chem 7: 08/25/18 05:32 08/25/18 05:32 Labs: Abnormal Lab Results - Last 24 Hours (Table) 08/24/18 08/24/18 08/24/18 Range/Units 08:00 09:51 11:07 WBC (3.8-10.6) k/uL RBC (4.30-5.90) m/uL Hgb (13.0-17.5) gm/dL Hct (39.0-53.0) % Plt Count (150-450) k/uL Neutrophils # (1.3-7.7) k/uL Lymphocytes # (1.0-4.8) k/uL APTT (22.0-30.0) sec ABG pH (7.35-7.45) ABG pO2 (83-108) mmHg ABG HCO3 (21-25) mmol/L ABG Total CO2 (19-24) mmol/L Potassium (3.5-5.1) mmol/L Chloride (98-107) mmol/L Carbon Dioxide (22-30) mmol/L Glucose (74-99) mg/dL POC Glucose (mg/dL) 430 H 403 H (75-99) mg/dL Calcium (8.4-10.2) mg/dL Troponin I 44.300 H* (0.000-0.034) ng/mL 08/24/18 08/24/18 08/24/18 Range/Units 12:01 12:49 13:59 WBC (3.8-10.6) k/uL RBC (4.30-5.90) m/uL Hgb (13.0-17.5) gm/dL Hct (39.0-53.0) % Plt Count (150-450) k/uL Neutrophils # (1.3-7.7) k/uL Lymphocytes # (1.0-4.8) k/uL APTT (22.0-30.0) sec ABG pH (7.35-7.45) ABG pO2 (83-108) mmHg ABG HCO3 (21-25) mmol/L ABG Total CO2 (19-24) mmol/L Potassium (3.5-5.1) mmol/L Chloride (98-107) mmol/L Carbon Dioxide (22-30) mmol/L Glucose (74-99) mg/dL POC Glucose (mg/dL) 387 H 362 H 304 H (75-99) mg/dL Calcium (8.4-10.2) mg/dL Troponin I (0.000-0.034) ng/mL 08/24/18 08/24/18 08/24/18 Range/Units 14:00 14:00 15:03 WBC (3.8-10.6) k/uL RBC (4.30-5.90) m/uL Hgb (13.0-17.5) gm/dL Hct (39.0-53.0) % Plt Count (150-450) k/uL Neutrophils # (1.3-7.7) k/uL Lymphocytes # (1.0-4.8) k/uL APTT (22.0-30.0) sec ABG pH (7.35-7.45) ABG pO2 (83-108) mmHg ABG HCO3 (21-25) mmol/L ABG Total CO2 (19-24) mmol/L Potassium 3.4 L (3.5-5.1) mmol/L Chloride (98-107) mmol/L Carbon Dioxide (22-30) mmol/L Glucose (74-99) mg/dL POC Glucose (mg/dL) 287 H (75-99) mg/dL Calcium (8.4-10.2) mg/dL Troponin I 71.900 H* (0.000-0.034) ng/mL 08/24/18 08/24/18 08/24/18 Range/Units 16:00 17:11 18:30 WBC (3.8-10.6) k/uL RBC (4.30-5.90) m/uL Hgb (13.0-17.5) gm/dL Hct (39.0-53.0) % Plt Count (150-450) k/uL Neutrophils # (1.3-7.7) k/uL Lymphocytes # (1.0-4.8) k/uL APTT (22.0-30.0) sec ABG pH (7.35-7.45) ABG pO2 (83-108) mmHg ABG HCO3 (21-25) mmol/L ABG Total CO2 (19-24) mmol/L Potassium (3.5-5.1) mmol/L Chloride (98-107) mmol/L Carbon Dioxide (22-30) mmol/L Glucose (74-99) mg/dL POC Glucose (mg/dL) 203 H 135 H 112 H (75-99) mg/dL Calcium (8.4-10.2) mg/dL Troponin I (0.000-0.034) ng/mL 08/24/18 08/24/18 08/24/18 Range/Units 19:06 20:10 21:09 WBC (3.8-10.6) k/uL RBC (4.30-5.90) m/uL Hgb (13.0-17.5) gm/dL Hct (39.0-53.0) % Plt Count (150-450) k/uL Neutrophils # (1.3-7.7) k/uL Lymphocytes # (1.0-4.8) k/uL APTT (22.0-30.0) sec ABG pH (7.35-7.45) ABG pO2 (83-108) mmHg ABG HCO3 (21-25) mmol/L ABG Total CO2 (19-24) mmol/L Potassium (3.5-5.1) mmol/L Chloride (98-107) mmol/L Carbon Dioxide (22-30) mmol/L Glucose (74-99) mg/dL POC Glucose (mg/dL) 110 H 122 H 123 H (75-99) mg/dL Calcium (8.4-10.2) mg/dL Troponin I (0.000-0.034) ng/mL 08/24/18 08/24/18 08/24/18 Range/Units 22:05 22:21 23:00 WBC (3.8-10.6) k/uL RBC (4.30-5.90) m/uL Hgb (13.0-17.5) gm/dL Hct (39.0-53.0) % Plt Count (150-450) k/uL Neutrophils # (1.3-7.7) k/uL Lymphocytes # (1.0-4.8) k/uL APTT 74.5 H (22.0-30.0) sec ABG pH (7.35-7.45) ABG pO2 (83-108) mmHg ABG HCO3 (21-25) mmol/L ABG Total CO2 (19-24) mmol/L Potassium (3.5-5.1) mmol/L Chloride (98-107) mmol/L Carbon Dioxide (22-30) mmol/L Glucose (74-99) mg/dL POC Glucose (mg/dL) 147 H 161 H (75-99) mg/dL Calcium (8.4-10.2) mg/dL Troponin I (0.000-0.034) ng/mL 08/25/18 08/25/18 08/25/18 Range/Units 00:04 01:13 02:13 WBC (3.8-10.6) k/uL RBC (4.30-5.90) m/uL Hgb (13.0-17.5) gm/dL Hct (39.0-53.0) % Plt Count (150-450) k/uL Neutrophils # (1.3-7.7) k/uL Lymphocytes # (1.0-4.8) k/uL APTT (22.0-30.0) sec ABG pH (7.35-7.45) ABG pO2 (83-108) mmHg ABG HCO3 (21-25) mmol/L ABG Total CO2 (19-24) mmol/L Potassium (3.5-5.1) mmol/L Chloride (98-107) mmol/L Carbon Dioxide (22-30) mmol/L Glucose (74-99) mg/dL POC Glucose (mg/dL) 157 H 147 H 131 H (75-99) mg/dL Calcium (8.4-10.2) mg/dL Troponin I (0.000-0.034) ng/mL 08/25/18 08/25/18 08/25/18 Range/Units 02:28 03:00 03:55 WBC (3.8-10.6) k/uL RBC (4.30-5.90) m/uL Hgb (13.0-17.5) gm/dL Hct (39.0-53.0) % Plt Count (150-450) k/uL Neutrophils # (1.3-7.7) k/uL Lymphocytes # (1.0-4.8) k/uL APTT (22.0-30.0) sec ABG pH 7.51 H (7.35-7.45) ABG pO2 68 L (83-108) mmHg ABG HCO3 29 H (21-25) mmol/L ABG Total CO2 30 H (19-24) mmol/L Potassium (3.5-5.1) mmol/L Chloride (98-107) mmol/L Carbon Dioxide (22-30) mmol/L Glucose (74-99) mg/dL POC Glucose (mg/dL) 139 H 159 H (75-99) mg/dL Calcium (8.4-10.2) mg/dL Troponin I (0.000-0.034) ng/mL 08/25/18 08/25/18 08/25/18 Range/Units 05:09 05:32 05:32 WBC 12.2 H (3.8-10.6) k/uL RBC 3.61 L (4.30-5.90) m/uL Hgb 11.3 L (13.0-17.5) gm/dL Hct 32.9 L (39.0-53.0) % Plt Count 106 L (150-450) k/uL Neutrophils # 10.4 H (1.3-7.7) k/uL Lymphocytes # 0.9 L (1.0-4.8) k/uL APTT 74.6 H (22.0-30.0) sec ABG pH (7.35-7.45) ABG pO2 (83-108) mmHg ABG HCO3 (21-25) mmol/L ABG Total CO2 (19-24) mmol/L Potassium (3.5-5.1) mmol/L Chloride (98-107) mmol/L Carbon Dioxide (22-30) mmol/L Glucose (74-99) mg/dL POC Glucose (mg/dL) 158 H (75-99) mg/dL Calcium (8.4-10.2) mg/dL Troponin I (0.000-0.034) ng/mL 08/25/18 08/25/18 08/25/18 Range/Units 05:32 06:09 07:12 WBC (3.8-10.6) k/uL RBC (4.30-5.90) m/uL Hgb (13.0-17.5) gm/dL Hct (39.0-53.0) % Plt Count (150-450) k/uL Neutrophils # (1.3-7.7) k/uL Lymphocytes # (1.0-4.8) k/uL APTT (22.0-30.0) sec ABG pH (7.35-7.45) ABG pO2 (83-108) mmHg ABG HCO3 (21-25) mmol/L ABG Total CO2 (19-24) mmol/L Potassium (3.5-5.1) mmol/L Chloride 109 H (98-107) mmol/L Carbon Dioxide 31 H (22-30) mmol/L Glucose 146 H (74-99) mg/dL POC Glucose (mg/dL) 151 H 137 H (75-99) mg/dL Calcium 7.4 L (8.4-10.2) mg/dL Troponin I (0.000-0.034) ng/mL 08/25/18 Range/Units 08:19 WBC (3.8-10.6) k/uL RBC (4.30-5.90) m/uL Hgb (13.0-17.5) gm/dL Hct (39.0-53.0) % Plt Count (150-450) k/uL Neutrophils # (1.3-7.7) k/uL Lymphocytes # (1.0-4.8) k/uL APTT (22.0-30.0) sec ABG pH (7.35-7.45) ABG pO2 (83-108) mmHg ABG HCO3 (21-25) mmol/L ABG Total CO2 (19-24) mmol/L Potassium (3.5-5.1) mmol/L Chloride (98-107) mmol/L Carbon Dioxide (22-30) mmol/L Glucose (74-99) mg/dL POC Glucose (mg/dL) 137 H (75-99) mg/dL Calcium (8.4-10.2) mg/dL Troponin I (0.000-0.034) ng/mL Assessment and Plan Plan: #1 Acute non-ST segment elevation myocardial infarction status post stenting to the distal right coronary artery and stenting of the PDA branch of the right coronary artery with transient bradycardia requiring insertion of transvenous temporary pacemaker. He subsequently developed recurrent chest pain cardiogenic shock and was taken back to the [facility] and received stenting to the saphenous vein graft to the obtuse marginal branch of the circumflex. Insertion of intra- aortic balloon pump. Reposition of the TVP. Intubated and on mechanical ventilation. #2 Cardiogenic shock secondary to above #3 Previous history of coronary artery disease with coronary artery bypass grafting utilizing the GAVIRIA to the LAD, saphenous vein grafts to the diagonal and OM back in 2008. #4 Diabetes mellitus, type II. #5 Dementia. #6 Prostate cancer. #7 Previous history of pneumonia/sepsis. #8 Chronic back pain. #9 History of renal colic. #10 Hyperlipidemia. #11 Hypertension. Plan: We will increase the PEEP up to 12, we will wean FiO2 to keep O2 sat at 80%. Bicarb drip has been discontinued. Patient still on a one-to-one augmentation on intra-aortic balloon pump, we'll hold DIS today. Chest x-ray has been reviewed, showing interstitial edema, bilateral pleural effusions. Continue with current antibiotics, will await the results for final cultures, Levaquin has been weaned off, patient remains on a dopamine drip. Remains on heparin drip, and dopamine drip, will continue breathing treatments, no diuretics right now. Continue close hemodynamic monitoring, is guarded I performed a history & physical examination of the patient and discussed their management with my nurse practitioner, Saranya Chavis. I reviewed the nurse practitioner's note and agree with the documented findings and plan of care. Lung sounds are diminished breath sounds. The findings and the impression was discussed with the patient. I attest to the documentation by the nurse practitioner. Time with Patient: Greater than 30
[2018-08-25 11:10] LABS: Glucose,Whole Blood 143 mg/dL (75-99)
[2018-08-25 11:16] LABS: Appearance,Urine Clear (Clear); Bilirubin,Urine Negative (Negative); Blood,Urine Negative (Negative); Color,Urine Colorless; Glucose,Urine (UA) Negative (Negative); Ketones,Urine Negative (Negative); Leukocyte Esterase,Urine Negative (Negative); Nitrite,Urine Negative (Negative); PH, Urine 6.5 (5.0-8.0); Protein,Urine Negative (Negative); Specific Gravity,Urine 1.006 (1.001-1.035); Urobilinogen,Urine <2.0 mg/dL (<2.0)
[2018-08-25 12:23] LABS: Glucose,Whole Blood 136 mg/dL (75-99)
[2018-08-25] MEDS: POTASSIUM CHLORIDE ER 20 MEQ TAB.ER PO SCH ×2 (13:03→14:45)
[2018-08-25 14:03] LABS: Glucose,Whole Blood 118 mg/dL (75-99)
[2018-08-25] MEDS ORDERED: HYDROmorphone 0.5 MG/0.5 ML SYRINGE IVP STA (14:35)
--- NOTE | 2018-08-25 15:58 | PN ---
PROGRESS NOTE DATE OF SERVICE: Mr. Vega is in sinus rhythm with a complete heart block. Intermittently he shows Wenckebach, and yesterday he had a rate of about 70 beats with sinus rhythm, long GA interval. However, today he is back in complete heart block. He also has some lower augmented pressure from the balloon pump. Urine output is excellent. Clinically, mentation seems to be fair, but he has developed oxygenation issues and seems to have possibly an infiltrate. Cardiac-horton I am going to take the balloon pump out later on today but will support him with 5 mcg of Levophed, which was discontinued yesterday. I will restart the Levophed, take the balloon pump out today, continue the pacer backup, and if he has improvement in the heart rate, we will keep the pacer at a backup rate of 50. Overall prognosis is guarded for this patient. Renal function, however, has shown improvement. Blood pressure without intra-aortic balloon pump is about 108 systolic. S1, S2 heard normally. Systolic murmur at the base is audible. Lungs reveal diminished air entry with scattered rales and rhonchi. Abdomen and lower extremity exam unchanged. IMPRESSION: 1. Status post multi-vessel percutaneous coronary intervention in a patient with ischemic cardiomyopathy. 2. Probable pneumonia. 3. On intra-aortic balloon pump for hemodynamic support. 4. History of dementia. RECOMMENDATIONS: I am recommending that we will add a small dose of Levophed and gradually put the balloon pump on 1:2 and discontinue the balloon pump from later on today and use the pacemaker as a backup. Overall prognosis seems quite guarded. Echocardiogram has been performed, and we will see the findings on the echo. Patient had an ejection fraction in the range of 45% to 50% with inferior wall hypokinesia. Prognosis remains guarded. MMODL / IJN: [id number] /
[2018-08-25 16:32] LABS: Glucose,Whole Blood 136 mg/dL (75-99)
[2018-08-25 17:51] LABS: ABG Base Excess 5.6 mmol/L; ABG HCO3 29 mmol/L (21-25); ABG Oxygen Saturation 89.4 % (94-97); ABG PCO2 35 mmHg (35-45); ABG PH 7.51 (7.35-7.45); ABG TCO2 30 mmol/L (19-24); Allen Test Performed? Yes
[2018-08-25 17:56] LABS: ABG PO2 50 mmHg (83-108)
[2018-08-25 18:26] LABS: Glucose,Whole Blood 152 mg/dL (75-99)
--- NOTE | 2018-08-25 18:50 | P.PN ---
Progress Note - Text Progress Note Date: 08/25/18 Chief Complaint: chest pain Interval history: This is a 78-year-old patientof Dr. Dean Evangelista.chronic stable medical conditions include diabetes, hyperlipidemia, hypertension, osteoarthritis, obstructive sleep apnea. Patient's a prior history of coronary bypass. Patient presented to [facility] of with an acute non-Q-wave [place]. He did undergo cardiac catheterization was found to have significant coronary artery disease. Patient was subsequently transferredhere yesterday for coronary intervention.patient was taken to the cardiac greenhouse laborer. Intervention was carried out. Patient did not have a very smooth course and subsequently patient was transferred to the ICU subsequently. Today-in the ICU. Remains intubated. FiO2 100% and PEEP of 12. Balloon pump was DC'd earlier today. Patient did get 1 unit of blood earlier today. He also got one dose of IV Lasix 40 mg. Drips include propofol at 50 mics, people for that 0.05 mics,, dopamine at 3 mics urine output has been reasonable. Review of systems: Could not be done as patient is intubated Current medications reviewed that included: DuoNeb, Lipitor, IV Ancef, Plavix, sodium bicarbonate drip, IV dopamine, IV heparin, insulin drip,IV levo fed drip, IV propofol drip and normal saline. Physical examination: VITAL SIGNS: 98.1, 64, 20, 120 tubal, 91% on the ventilator GENERAL: [BMI 35.6, laying in bed, intubated, ]. EYES: [Pupils equal. Conjunctiva hayden]l. HEENT: [External appearance of nose and ears normal, endotracheal tube in placel]. NECK: [JVD unable to assessd; masses not palpable]. HEART: [First and second heart sounds are normal; no edema]. LUNGS:[ Respiratory rate increase; decreased breath soundn]. ABDOMEN: [Soft, nontender, liver spleen not palpable, no masses palpable]. LYMPHATICS: [No lymph nodes palpable in the axilla and neck]. PSYCH: [sedated and intubated]l. NEUROLOGICAL: [Cranial nerves grossly intact; no facial asymmetry, pupils are reactivet Investigations, we will in the clinical context: White count 12.2, hemoglobin 11.3, platelets 106, potassium 3.6, BUN 18, creatinine 1.04 Assessment: -Acute non-Q-wave myocardial infarction -Coronary artery disease with severe significant disease to the left main and right coronary artery. With coronary intervention -Acute cardiogenic shock shock requiring balloon pump support, that was stopped today on 07/30 10/16 -Complete heart block requiring a temporary venous pacemaker, currently in first degree AV block. -Diabetes mellitus type 2 chronically on insulin uncontrolled continue insulin drip -Hyperlipidemia -Primary osteoarthritis -obstructive. sleep apnea -Chronic bladder outflow obstruction -Severe metabolic acidosis multifactorial -Acute renal failure possibly ATN from cardiorenal syndrome from cardiogenic shock, with improvement Plan: Prognosis remains guarded. Continue with supportive care including being on the ventilator, IV propofol, ibuprofen, IV to prevent. Patient also received IV Lasix.
[2018-08-25] MEDS: NOREPINEPHRINE 32 MG in SODIUM CHLORIDE 0.9% 218 ML IV SCH (18:52)
[2018-08-25] MEDS: INSULIN ASPART (NovoLOG) 100 UNIT/ML VIAL SQ SCH ×2 (19:17→23:27)
[2018-08-25] MEDS ORDERED: POTASSIUM BICARBONATE/CIT AC 20 MEQ TABLET.EFF NG-TUBE SCH (23:00)
[2018-08-25] MEDS: HEPARIN SODIUM,PORCINE 5,000 UNIT/ML 1 ML VIAL SQ SCH (23:04)
[2018-08-25 23:24] LABS: Glucose,Whole Blood 180 mg/dL (75-99)
[2018-08-26 00:15] LABS: Glucose,Whole Blood 188 mg/dL (75-99)
[2018-08-26] MEDS: SODIUM CHLORIDE 0.9% 1,000 ML IV SCH ×4 (02:00→23:07)
[2018-08-26] MEDS: PROPOFOL 1,000 MG in EMPTY BAG 1 BAG IV SCH ×8 (02:07→23:07)
[2018-08-26] MEDS: IPRATROPIUM-ALBUTEROL 3 ML NEB INHALATION SCH ×6 (03:39→23:37)
[2018-08-26 04:41] LABS: ABG Base Excess 3.3 mmol/L; ABG HCO3 27 mmol/L (21-25); ABG Oxygen Saturation 98.3 % (94-97); ABG PCO2 40 mmHg (35-45); ABG PH 7.44 (7.35-7.45); ABG PO2 129 mmHg (83-108); ABG TCO2 29 mmol/L (19-24)
[2018-08-26 05:31] LABS: Basophils % (A) 0 %; Eosinophils # (A) 0.1 k/uL (0-0.7); Eosinophils % (A) 1 %; HCT 34.8 % (39.0-53.0); HGB 11.7 gm/dL (13.0-17.5); Lymphocytes # (A) 1.5 k/uL (1.0-4.8); Lymphocytes % (A) 11 %; MCH 30.9 pg (25.0-35.0); MCHC 33.6 g/dL (31.0-37.0); MCV 91.9 fL (80.0-100.0); Mean Platelet Volume 10.4; Monocytes # (A) 0.6 k/uL (0-1.0); Monocytes % (A) 4 %; Neutrophils # (A) 11.7 k/uL (1.3-7.7); Neutrophils % (A) 83 %; RBC 3.78 m/uL (4.30-5.90); RDW 14.8 % (11.5-15.5); WBC 14.1 k/uL (3.8-10.6)
[2018-08-26 05:43] LABS: Calcium 7.6 mg/dL (8.4-10.2); Potassium 4.4 mmol/L (3.5-5.1)
[2018-08-26 06:15] LABS: Glucose,Whole Blood 232 mg/dL (75-99)
[2018-08-26] MEDS: INSULIN ASPART (NovoLOG) 100 UNIT/ML VIAL SQ SCH ×3 (06:16→18:11)
--- NOTE | 2018-08-26 06:49 | XR ---
EXAMINATION TYPE: XR chest 1V portable DATE OF EXAM: 08/26/2018 HISTORY: Tube placement. REFERENCE: Previous study dated 08/25/2018. FINDINGS: There has been a midline sternotomy. The patient is ET tube and NG tube remain in place, un changed in appearance. The heart is mildly enlarged. The lungs are clear. There is some blunting of the left CP angle. This may represent a small left effusion. Overall aeration has improved. IMPRESSION: IMPROVING CHANGES OF PULMONARY EDEMA.
[2018-08-26 07:20] LABS: Large Platelets Present
[2018-08-26 07:21] LABS: Anisocytosis (M) Present; Platelet Count 96 k/uL (150-450); Poikilocytosis (M) Present
--- NOTE | 2018-08-26 08:19 | P.PN ---
Subjective Progress Note Date: 08/26/18 Seen and examined for the follow-up of acute kidney injury. Still on dopamine. On ventilator with 80% FiO2 Objective - Vital Signs Vital signs: Vital Signs Temp 98.2 F 08/26/18 04:00 Pulse 58 L 08/26/18 07:27 Resp 25 H 08/26/18 07:00 BP 102/60 08/25/18 23:00 Pulse Ox 94 L 08/26/18 07:00 Intake & Output 08/25/18 08/26/18 08/26/18 18:59 06:59 18:59 Intake Total 2543.992 1939.412 224.564 Output Total 3015 397 35 Balance -493.077 4813.412 189.564 Weight 106.7 kg 105.1 kg Intake: IV 314 1411 128 0.9 NaCl- Primary line 150 Arterial Sheath pressure 39 36 3 bag Sodium Bicarbonate 125 infusion Sodium Chloride 0.9% 1, 1375 125 000 ml @ 125 mls/hr IV . Q8H [facility] Rx#:[id number] Intake, IV Titration 2079.992 528.412 96.564 Amount Heparin Sod,Pork in 0.45% 206.5 NaCl 25,000 unit In 0.45 % NaCl 1 250ml.bag @ 9. 699 UNITS/KG/HR 10 mls/hr IV .Q24H [facility] Rx#: [id number] Insulin Regular 100 unit 16.272 In Sodium Chloride 0.9% 100 ml @ Per Protocol IV .Q0M [facility] Rx#:[id number] Norepinephrine 32 mg In 15.82 0 Sodium Chloride 0.9% 218 ml @ 0 mls/hr IV .[facility] Rx#:[id number] Norepinephrine 32 mg In 17.874 Sodium Chloride 0.9% 218 ml @ 0.05 MCG/KG/MIN 2. 227 mls/hr IV .Q24H [facility] Rx#:[id number] Propofol 1,000 mg In 248.526 353.412 96.564 Empty Bag 1 bag @ Titrate IV .Q0M [facility] Rx#: [id number] Sodium Chloride 0.9% 1, 1375 125 000 ml @ 125 mls/hr IV . Q8H [facility] Rx#:[id number] ceFAZolin 1,000 mg In 200 50 Sodium Chloride 0.9% 50 ml @ 100 mls/hr IVPB Q8HR [facility] Rx#:[id number] Other 150 Output: Gastric Drainage 50 Urine 2965 397 35 Other: Voiding Method Indwelling Catheter Indwelling Catheter ABP, PAP, CO, CI - Last Documented Arterial Blood Pressure 139/54 - Exam Intubated sedated S1-S2 heard Decreased breath sounds Edema - Labs CBC & Chem 7: 08/26/18 05:05 08/26/18 05:05 Labs: Abnormal Lab Results - Last 24 Hours (Table) 08/25/18 08/25/18 08/25/18 Range/Units 08:19 09:32 11:06 WBC (3.8-10.6) k/uL RBC (4.30-5.90) m/uL Hgb (13.0-17.5) gm/dL Hct (39.0-53.0) % Plt Count (150-450) k/uL Neutrophils # (1.3-7.7) k/uL ABG pH (7.35-7.45) ABG pO2 (83-108) mmHg ABG HCO3 (21-25) mmol/L ABG Total CO2 (19-24) mmol/L ABG O2 Saturation (94-97) % Potassium (3.5-5.1) mmol/L Chloride (98-107) mmol/L Glucose (74-99) mg/dL POC Glucose (mg/dL) 137 H 122 H 143 H (75-99) mg/dL Calcium (8.4-10.2) mg/dL 08/25/18 08/25/18 08/25/18 Range/Units 12:19 12:25 13:59 WBC (3.8-10.6) k/uL RBC (4.30-5.90) m/uL Hgb (13.0-17.5) gm/dL Hct (39.0-53.0) % Plt Count (150-450) k/uL Neutrophils # (1.3-7.7) k/uL ABG pH (7.35-7.45) ABG pO2 (83-108) mmHg ABG HCO3 (21-25) mmol/L ABG Total CO2 (19-24) mmol/L ABG O2 Saturation (94-97) % Potassium 3.4 L (3.5-5.1) mmol/L Chloride (98-107) mmol/L Glucose (74-99) mg/dL POC Glucose (mg/dL) 136 H 118 H (75-99) mg/dL Calcium (8.4-10.2) mg/dL 08/25/18 08/25/18 08/25/18 Range/Units 16:06 17:49 18:23 WBC (3.8-10.6) k/uL RBC (4.30-5.90) m/uL Hgb (13.0-17.5) gm/dL Hct (39.0-53.0) % Plt Count (150-450) k/uL Neutrophils # (1.3-7.7) k/uL ABG pH 7.51 H (7.35-7.45) ABG pO2 50 L* (83-108) mmHg ABG HCO3 29 H (21-25) mmol/L ABG Total CO2 30 H (19-24) mmol/L ABG O2 Saturation 89.4 L (94-97) % Potassium (3.5-5.1) mmol/L Chloride (98-107) mmol/L Glucose (74-99) mg/dL POC Glucose (mg/dL) 136 H 152 H (75-99) mg/dL Calcium (8.4-10.2) mg/dL 08/25/18 08/26/18 08/26/18 Range/Units 23:20 00:00 04:35 WBC (3.8-10.6) k/uL RBC (4.30-5.90) m/uL Hgb (13.0-17.5) gm/dL Hct (39.0-53.0) % Plt Count (150-450) k/uL Neutrophils # (1.3-7.7) k/uL ABG pH (7.35-7.45) ABG pO2 129 H (83-108) mmHg ABG HCO3 27 H (21-25) mmol/L ABG Total CO2 29 H (19-24) mmol/L ABG O2 Saturation 98.3 H (94-97) % Potassium (3.5-5.1) mmol/L Chloride (98-107) mmol/L Glucose (74-99) mg/dL POC Glucose (mg/dL) 180 H 188 H (75-99) mg/dL Calcium (8.4-10.2) mg/dL 08/26/18 08/26/18 08/26/18 Range/Units 05:05 05:05 06:12 WBC 14.1 H (3.8-10.6) k/uL RBC 3.78 L (4.30-5.90) m/uL Hgb 11.7 L (13.0-17.5) gm/dL Hct 34.8 L (39.0-53.0) % Plt Count 96 L (150-450) k/uL Neutrophils # 11.7 H (1.3-7.7) k/uL ABG pH (7.35-7.45) ABG pO2 (83-108) mmHg ABG HCO3 (21-25) mmol/L ABG Total CO2 (19-24) mmol/L ABG O2 Saturation (94-97) % Potassium (3.5-5.1) mmol/L Chloride 109 H (98-107) mmol/L Glucose 201 H (74-99) mg/dL POC Glucose (mg/dL) 232 H (75-99) mg/dL Calcium 7.6 L (8.4-10.2) mg/dL Microbiology - Last 24 Hours (Table) 08/25/18 09:10 Urine Culture - Preliminary Urine,Catheterized Assessment and Plan Assessment: #1 nonoliguric acute kidney injury secondary to ischemic ATN. Creatinine back to baseline. #2 coronary artery disease status post cardiac cath and balloon pump #3 cardiogenic shock #4 alkalosis #5 acute respiratory failure on ventilator #6 edema Plan: #1 creatinine stable. Maintain hemodynamic support and when stable wean off pressors #2 consider adding diuretics Lasix for volume. #3 avoid nephrotoxic agents and hypotensive episodes
[2018-08-26] MEDS: DOPamine DRIP 800 MG in DEXTROSE/WATER 1 250ML.BAG IV SCH ×2 (08:38→16:32)
[2018-08-26] MEDS: HEPARIN SODIUM,PORCINE 5,000 UNIT/ML 1 ML VIAL SQ SCH ×3 (08:39→23:04)
[2018-08-26] MEDS: CLOPIDOGREL 75 MG TAB PO SCH (08:39)
[2018-08-26] MEDS: CHLORHEXIDINE GLUCONATE 15 ML CUP MUCOUS MEM SCH ×2 (08:39→20:52)
[2018-08-26] MEDS: MULTIVITAMINS, THERA 1 EACH TAB PO SCH (08:39)
[2018-08-26] MEDS: ASPIRIN 81 MG PO SCH (08:39)
[2018-08-26] MEDS: ATORVASTATIN 40 MG TAB PO SCH (08:39)
[2018-08-26] MEDS: PREVAGEN PO SCH (09:19)
[2018-08-26] MEDS ORDERED: FUROSEMIDE 10 MG/ML 4 ML VIAL IV STA (10:13)
--- NOTE | 2018-08-26 10:23 | PN ---
PROGRESS NOTE Mr. Vega is in sinus rhythm with a complete heart block underlying left bundle. He is using the pacemaker pretty much most of the time. His balloon pump has been taken out. His pacemaker is from the right groin. The right groin is actually clean and dry. The left groin has arterial sheath. He is hemodynamically stable, but oxygenation issues persist with a PO2 of 128 or so and FiO2 80% with 16 of PEEP. These are his limiting factors. Additionally, he seems to have significant conduction disease and he is using the pacemaker. Plan today is to continue current supportive care with ventilator support, antibiotics as well as pacemaker support. If clinically he shows some improvement, we will consider change in the management. He is on 3 mcg of dopamine. His Levophed has been weaned off. Intra-aortic balloon pump has been taken out. Ejection fraction in the 35-40 percent range. RECOMMENDATIONS: For today, I would leave the pacemaker as a backup. Continued dopamine at 3 mcg. His urine output is decent. I will await input from Dr. Baldwin. Current circumstances do not suggest that we should calvin to a dual-chamber pacemaker because several compounding issues are there. However, we will leave the temporary pacer for now and make a decision tomorrow. Continue current therapy. MMODL / IJN: [id number] /
--- NOTE | 2018-08-26 11:10 | P.PN ---
Subjective Progress Note Date: 08/26/18 Principal diagnosis: Acute non-ST segment elevation myocardial infarction, status post PCI and stenting of the distal RCA, stenting of the PDA branch of the right coronary artery, PCI and stenting of the SVG to the OM. Cardiogenic shock, bradycardia This is an 78-year-old gentleman who follows with Dr. Evangelista as his primary care physician. He has a history of coronary artery disease with previous coronary artery bypass grafting in 2008 where he received a GAVIRIA to the LAD, SVG to the diagonal and SVG to the OM, diabetes mellitus type 2, dementia, pneumonia/sepsis, prostate cancer, chronic back pain, renal colic, hyperlipidemia, hypertension. He presented to [facility] on 08/22/2018 with complaints of chest pain. This was initially described as sharp and stabbing per the ER notes. No shortness of breath. He was given nitroglycerin and the EMS with minimal improvement. He was admitted there for the same. On 08/23/2018 he had ongoing chest pain and had undergone cardiac catheterization at [facility] was found to have an occluded left main, severe disease involving the distal right coronary artery, patent GAVIRIA to the LAD, occluded SVG to the diagonal and in her immediate to severe disease involving the ostial of the SVG to the OM. He was found to have an acute non-ST segment elevation myocardial infarction subsequent transferred here yesterday where he did undergo successful stenting of the distal right coronary artery and PDA branch of the coronary artery. He did develop occlusion of the distal branches transiently which were opened up and the patient went into complete heart block and received a transvenous temporary pacemaker. He was then placed in the intensive care unit. Later he developed ongoing chest discomfort, hypotension and taken back to [facility]. He subsequently received intra-aortic balloon pump and stenting of the saphenous vein grafts to the obtuse marginal branch of the circumflex. At that time he required intubation mechanical ventilatory support. He was again returned to the ICU. He is seen today in consultation. He is currently on mechanical ventilator assist control of 16, tidal volume 500, FiO2 100% and a PEEP of 5. Most recent blood gases reveal a P O2 of 110, pCO2 29, pH of 7.28. Arterial blood gases prior to that were a P O2 131, pCO2 28 and a pH of 7.11 where he did receive 2 A of sodium bicarb and then increased the sodium bicarb drip which has 3 A of bicarb to 125 ML's per hour. He is sedated with propofol at 15 mcg/kg/m. He has dopamine at 3 mcg/kg/m. Insulin drip at 1 7 units per hour, norepinephrine at 20 mcg/m, 0.9 normal saline at 150 ML's per hour. His intra-aortic balloon pump is in place at 1:1. Chest x-ray reveals evidence of mild congestive heart failure. Current temperature 99.4. Blood pressure 94/60 On 08/25/2018 patient was seen in follow-up in the intensive care unit. He remains sedated, and intubated on mechanical ventilator, current vent settings are assist-control mode of ventilation with a rate of 16, tidal 01/01/1952, FiO2 100%, and PEEP of 8. The gases were reviewed, showing pO2 of 68, pCO2 36, and pH of 7.50. Patient's bicarbonate drip has been discontinued, we will increase the PEEP up to 12. He remains on intra-aortic balloon pump, with one-to-one augmentation, transvenous pacemaker is in place, the rate of 90, pacing 100%, underlying rhythm is bradycardia, possibly sinus, with first-degree heart block. Pressure is 80s to 90s systolic, with 50s diastolic, patient has been having intermittent low-grade fevers, T-max in last 24 hours is 100.7F this morning. Blood cultures, sputum culture urine culture have been sent, pending, preliminary sputum Gram stain showed no epithelial cells, rare gram-positive cocci. Final cultures pending. Today's labs have been reviewed, showing white blood cell count of 12.2, chiefly trending down, from 24.5 on yesterday's labs. Hemoglobin of 11.3, platelet count of 106, serum sodium is 143, potassium is 3.6, chloride is 109, CO2 is 31, B1 of 18, creatinine is 1.04. Patient's tr oponin topped at 71.9. Lung sounds are diminished. Distal pulses are intact. Today's chest x-ray has been reviewed, showing volume overload, interstitial edema, basilar atelectasis, and bilateral pleural effusions. Patient has been weaned off the levo fed drip, remains on dobutamine drip, currently at 3 mics per kilo per minute, heparin drip per weight-based protocol, insulin drip is on hold, Diprivan and is at 40 mics per kilo per minute. The patient is seen today 08/26/2017 in follow-up in the intensive care unit. He remains intubated, sedated on the mechanical ventilator. Current settings assist-control of 16, tidal volume 450, FiO2 80% and a PEEP of 16. Morning blood gases reveal pO2 129, pCO2 40, pH 7.44. Chest x-ray continues to show some fluid volume overload but overall aeration is improved. Currently in a positive balance. Weight the same today at 105.1 kg. 40 mg of IV Lasix is given. He remains sedated on to propofol at 50 mcg/kg/m. Dopamine at 3 mcg/kg/m. 0.9 normal saline at 125 ML's per hour. Tube feedings will be initiated. Intra-aortic balloon pump was discontinued yesterday. Temporary venous pacer in place. Sputum culture reveals no growth. Urine culture pending. White count 14. Hemoglobin 11.7. Platelet count 96,000. Creatinine 1.01. Objective - Vital Signs Vital signs: Vital Signs Temp 97.7 F 08/26/18 08:00 Pulse 61 08/26/18 10:00 Resp 19 08/26/18 10:00 BP 102/60 08/25/18 23:00 Pulse Ox 95 08/26/18 10:00 Intake & Output 08/25/18 08/26/18 08/26/18 18:59 06:59 18:59 Intake Total 2543.992 1258.993 5515.170 Output Total 3015 397 590 Balance -194.511 3813.412 572.170 Weight 106.7 kg 105.1 kg 105.1 kg Intake: IV 314 1411 690 0.9 NaCl- Primary line 150 Arterial Sheath pressure 39 36 15 bag Sodium Bicarbonate 125 infusion Sodium Chloride 0.9% 1, 1375 625 000 ml @ 125 mls/hr IV . Q8H [facility] Rx#:[id number] ceFAZolin 1,000 mg In 50 Sodium Chloride 0.9% 50 ml @ 100 mls/hr IVPB Q8HR [facility] Rx#:[id number] Intake, IV Titration 2079.992 528.412 422.170 Amount DOPamine DRIP 800 mg In 225.606 Dextrose/Water 1 250ml. bag @ 10 MCG/KG/MIN 17. 813 mls/hr IV .Q14H3M [facility] Rx#:[id number] Heparin Sod,Pork in 0.45% 206.5 NaCl 25,000 unit In 0.45 % NaCl 1 250ml.bag @ 9. 699 UNITS/KG/HR 10 mls/hr IV .Q24H [facility] Rx#: [id number] Insulin Regular 100 unit 16.272 In Sodium Chloride 0.9% 100 ml @ Per Protocol IV .Q0M [facility] Rx#:[id number] Norepinephrine 32 mg In 15.82 0 Sodium Chloride 0.9% 218 ml @ 0 mls/hr IV .[facility] Rx#:[id number] Norepinephrine 32 mg In 17.874 Sodium Chloride 0.9% 218 ml @ 0.05 MCG/KG/MIN 2. 227 mls/hr IV .Q24H [facility] Rx#:[id number] Propofol 1,000 mg In 248.526 353.412 196.564 Empty Bag 1 bag @ Titrate IV .Q0M [facility] Rx#: [id number] Sodium Chloride 0.9% 1, 1375 125 000 ml @ 125 mls/hr IV . Q8H [facility] Rx#:[id number] ceFAZolin 1,000 mg In 200 50 Sodium Chloride 0.9% 50 ml @ 100 mls/hr IVPB Q8HR [facility] Rx#:[id number] Other 150 50 Output: Gastric Drainage 50 Urine 2965 397 590 Other: Voiding Method Indwelling Catheter Indwelling Catheter Indwelling Catheter ABP, PAP, CO, CI - Last Documented Arterial Blood Pressure 111/51 - Exam GENERAL EXAM: Sedated, intubated, obese, 78-year-old white male comfortable in no apparent distress. HEAD: Normocephalic/atraumatic. EYES: Normal reaction of pupils, equal size. Conjunctiva pink, sclera white. NOSE: Clear with pink turbinates. THROAT: Oral endotracheal and gastric tube secured in place. No erythema or exudates. NECK: No masses, no JVD, no thyroid enlargement, no adenopathy. CHEST: No chest wall deformity. Symmetrical expansion. LUNGS: Equal air entry with no crackles, wheeze, rhonchi or dullness. CVS: Regular rate and rhythm, normal S1 and S2, no gallops, no murmurs, no rubs ABDOMEN: Soft, nontender. No hepatosplenomegaly, normal bowel sounds, no guarding or rigidity. EXTREMITIES: No clubbing, no edema, no cyanosis, 2+ pulses and upper and lower extremities. Right groin TVP MUSCULOSKELETAL: Muscle strength and tone normal. SPINE: No scoliosis or deformity SKIN: No rashes CENTRAL NERVOUS SYSTEM: Sedated. No focal deficits, tone is normal in all 4 extremities. PSYCHIATRIC: Sedated. - Labs CBC & Chem 7: 08/26/18 05:05 08/26/18 05:05 Labs: Abnormal Lab Results - Last 24 Hours (Table) 08/25/18 08/25/18 08/25/18 Range/Units 11:06 12:19 12:25 WBC (3.8-10.6) k/uL RBC (4.30-5.90) m/uL Hgb (13.0-17.5) gm/dL Hct (39.0-53.0) % Plt Count (150-450) k/uL Neutrophils # (1.3-7.7) k/uL ABG pH (7.35-7.45) ABG pO2 (83-108) mmHg ABG HCO3 (21-25) mmol/L ABG Total CO2 (19-24) mmol/L ABG O2 Saturation (94-97) % Potassium 3.4 L (3.5-5.1) mmol/L Chloride (98-107) mmol/L Glucose (74-99) mg/dL POC Glucose (mg/dL) 143 H 136 H (75-99) mg/dL Calcium (8.4-10.2) mg/dL 08/25/18 08/25/18 08/25/18 Range/Units 13:59 16:06 17:49 WBC (3.8-10.6) k/uL RBC (4.30-5.90) m/uL Hgb (13.0-17.5) gm/dL Hct (39.0-53.0) % Plt Count (150-450) k/uL Neutrophils # (1.3-7.7) k/uL ABG pH 7.51 H (7.35-7.45) ABG pO2 50 L* (83-108) mmHg ABG HCO3 29 H (21-25) mmol/L ABG Total CO2 30 H (19-24) mmol/L ABG O2 Saturation 89.4 L (94-97) % Potassium (3.5-5.1) mmol/L Chloride (98-107) mmol/L Glucose (74-99) mg/dL POC Glucose (mg/dL) 118 H 136 H (75-99) mg/dL Calcium (8.4-10.2) mg/dL 08/25/18 08/25/18 08/26/18 Range/Units 18:23 23:20 00:00 WBC (3.8-10.6) k/uL RBC (4.30-5.90) m/uL Hgb (13.0-17.5) gm/dL Hct (39.0-53.0) % Plt Count (150-450) k/uL Neutrophils # (1.3-7.7) k/uL ABG pH (7.35-7.45) ABG pO2 (83-108) mmHg ABG HCO3 (21-25) mmol/L ABG Total CO2 (19-24) mmol/L ABG O2 Saturation (94-97) % Potassium (3.5-5.1) mmol/L Chloride (98-107) mmol/L Glucose (74-99) mg/dL POC Glucose (mg/dL) 152 H 180 H 188 H (75-99) mg/dL Calcium (8.4-10.2) mg/dL 08/26/18 08/26/18 08/26/18 Range/Units 04:35 05:05 05:05 WBC 14.1 H (3.8-10.6) k/uL RBC 3.78 L (4.30-5.90) m/uL Hgb 11.7 L (13.0-17.5) gm/dL Hct 34.8 L (39.0-53.0) % Plt Count 96 L (150-450) k/uL Neutrophils # 11.7 H (1.3-7.7) k/uL ABG pH (7.35-7.45) ABG pO2 129 H (83-108) mmHg ABG HCO3 27 H (21-25) mmol/L ABG Total CO2 29 H (19-24) mmol/L ABG O2 Saturation 98.3 H (94-97) % Potassium (3.5-5.1) mmol/L Chloride 109 H (98-107) mmol/L Glucose 201 H (74-99) mg/dL POC Glucose (mg/dL) (75-99) mg/dL Calcium 7.6 L (8.4-10.2) mg/dL 08/26/18 Range/Units 06:12 WBC (3.8-10.6) k/uL RBC (4.30-5.90) m/uL Hgb (13.0-17.5) gm/dL Hct (39.0-53.0) % Plt Count (150-450) k/uL Neutrophils # (1.3-7.7) k/uL ABG pH (7.35-7.45) ABG pO2 (83-108) mmHg ABG HCO3 (21-25) mmol/L ABG Total CO2 (19-24) mmol/L ABG O2 Saturation (94-97) % Potassium (3.5-5.1) mmol/L Chloride (98-107) mmol/L Glucose (74-99) mg/dL POC Glucose (mg/dL) 232 H (75-99) mg/dL Calcium (8.4-10.2) mg/dL Microbiology - Last 24 Hours (Table) 08/23/18 23:32 Gram Stain - Final Sputum Sputum Culture - Final 08/25/18 09:10 Urine Culture - Preliminary Urine,Catheterized Assessment and Plan Assessment: Impression: #1 Acute non-ST segment elevation myocardial infarction status post stenting to the distal right coronary artery and stenting of the PDA branch of the right coronary artery with transient bradycardia requiring insertion of transvenous te mporary pacemaker. He subsequently developed recurrent chest pain cardiogenic shock and was taken back to the [facility] and received stenting to the saphenous vein graft to the obtuse marginal branch of the circumflex. Intubated and on mechanical ventilation. #2 Cardiogenic shock secondary to above. #3 Previous history of coronary artery disease with coronary artery bypass grafting utilizing the GAVIRIA to the LAD, saphenous vein grafts to the diagonal and OM back in 2008. #4 Diabetes mellitus, type II. #5 Dementia. #6 Prostate cancer. #7 Previous history of pneumonia/sepsis. #8 Chronic back pain. #9 History of renal colic. #10 Hyperlipidemia. #11 Hypertension. Plan: The patient was seen and evaluated by Dr. Baldwin. Chest x-ray, ABGs and labs all reviewed. Give additional Lasix 40 mg IVP today. DuoNeb inhalations every 4 hours and when necessary. Continue to decrease the FiO2 as tolerated while maintaining O2 saturations greater than 93%. Continue with the current medications for now. We will continue to follow and make further recommendations based on his clinical status. Critical care time 42 minutes I, the cosigning physician, performed a history & physical examination of the patient. Lungs sounds with few scattered rhonchi, crackles in the bases. Maintaining good O2 saturations in the 90s on 60 percent FiO2 and a PEEP of 16 on the mechanical ventilator. I discussed the assessment and plan of care with my nurse practitioner, Josephine Manzo. I attest to the above consultation as dictated by her.. Time with Patient: Greater than 30
[2018-08-26 11:48] LABS: Glucose,Whole Blood 196 mg/dL (75-99)
[2018-08-26] MEDS: PANTOPRAZOLE 40 MG/10 ML VIAL IVP SCH (12:18)
[2018-08-26] MEDS ORDERED: ARTIFICIAL TEARS-HYPROMELLOSE DROPS 15 ML BTL BOTH EYES PRN (13:51)
[2018-08-26 18:00] LABS: Glucose,Whole Blood 226 mg/dL (75-99)
[2018-08-26] MEDS: NOREPINEPHRINE 32 MG in SODIUM CHLORIDE 0.9% 218 ML IV SCH (18:12)
[2018-08-26] MEDS: POTASSIUM CHLORIDE ER 20 MEQ TAB.ER PO SCH ×2 (21:34→23:03)
[2018-08-27] MEDS: INSULIN ASPART (NovoLOG) 100 UNIT/ML VIAL SQ SCH ×4 (01:12→17:16)
[2018-08-27 01:13] LABS: Glucose,Whole Blood 272 mg/dL (75-99)
[2018-08-27] MEDS: PROPOFOL 1,000 MG in EMPTY BAG 1 BAG IV SCH ×6 (02:21→20:32)
[2018-08-27] MEDS: IPRATROPIUM-ALBUTEROL 3 ML NEB INHALATION SCH ×6 (03:29→23:20)
[2018-08-27 04:24] LABS: Basophils % (A) 0 %; Eosinophils % (A) 0 %; HCT 32.6 % (39.0-53.0); HGB 10.9 gm/dL (13.0-17.5); Lymphocytes # (A) 0.9 k/uL (1.0-4.8); Lymphocytes % (A) 9 %; MCH 31.1 pg (25.0-35.0); MCHC 33.4 g/dL (31.0-37.0); Mean Platelet Volume 10.1; Monocytes # (A) 0.4 k/uL (0-1.0); Monocytes % (A) 4 %; Neutrophils # (A) 8.6 k/uL (1.3-7.7); Neutrophils % (A) 85 %; RBC 3.51 m/uL (4.30-5.90); RDW 14.1 % (11.5-15.5); WBC 10.1 k/uL (3.8-10.6)
[2018-08-27 04:31] LABS: Platelet Count 91 k/uL (150-450)
[2018-08-27 04:32] LABS: ALT 62 U/L (21-72); AST 107 U/L (17-59); African American GFR (CKD) >90 (>60 ml/min/1.73 sqM); Albumin 2.3 g/dL (3.5-5.0); Alkaline Phosphatase 100 U/L (38-126); Anion Gap 3 mmol/L; Blood Urea Nitrogen 16 mg/dL (9-20); Calcium 7.6 mg/dL (8.4-10.2); Carbon Dioxide 28 mmol/L (22-30); Chloride 111 mmol/L (98-107); Glucose 206 mg/dL (74-99); Potassium 3.7 mmol/L (3.5-5.1); Sodium 142 mmol/L (137-145); Total Bilirubin 0.5 mg/dL (0.2-1.3); Total Protein 4.5 g/dL (6.3-8.2)
[2018-08-27] MEDS ORDERED: POTASSIUM BICARBONATE/CIT AC 20 MEQ TABLET.EFF NG-TUBE SCH (05:00)
[2018-08-27 05:02] LABS: ABG HCO3 28 mmol/L (21-25); ABG Oxygen Saturation 94.4 % (94-97); ABG PCO2 38 mmHg (35-45); ABG PH 7.47 (7.35-7.45); ABG PO2 68 mmHg (83-108); ABG TCO2 29 mmol/L (19-24)
[2018-08-27] MEDS: DOPamine DRIP 800 MG in DEXTROSE/WATER 1 250ML.BAG IV SCH (06:39)
[2018-08-27 06:40] LABS: Glucose,Whole Blood 214 mg/dL (75-99)
[2018-08-27] MEDS ORDERED: FUROSEMIDE 10 MG/ML 4 ML VIAL IV STA (08:43)
[2018-08-27] MEDS ORDERED: CISATRACURIUM 2 MG/ML 5 ML VIAL IV ONE (08:47)
--- NOTE | 2018-08-27 09:17 | P.PN ---
Subjective Progress Note Date: 08/27/18 Seen and examined for the follow-up of acute kidney injury. On ventilator. Objective - Vital Signs Vital signs: Vital Signs Temp 98.5 F 08/27/18 04:00 Pulse 50 L 08/27/18 07:23 Resp 29 H 08/27/18 07:00 BP 109/62 08/27/18 05:30 Pulse Ox 88 L 08/27/18 07:00 Intake & Output 08/26/18 08/27/18 08/27/18 18:59 06:59 18:59 Intake Total 2483.394 2590.365 158 Output Total 1890 575 125 Balance 479.033 0030.365 33 Weight 105.1 kg 106.3 kg Intake: IV 1586 1586 128 Arterial Sheath pressure 36 36 3 bag Sodium Chloride 0.9% 1, 1500 1500 125 000 ml @ 125 mls/hr IV . Q8H [facility] Rx#:[id number] ceFAZolin 1,000 mg In 50 50 Sodium Chloride 0.9% 50 ml @ 100 mls/hr IVPB Q8HR [facility] Rx#:[id number] Intake, IV Titration 597.394 504.365 Amount DOPamine DRIP 800 mg In 225.606 117.657 Dextrose/Water 1 250ml. bag @ 10 MCG/KG/MIN 17. 813 mls/hr IV .Q14H3M [facility] Rx#:[id number] Propofol 1,000 mg In 371.788 386.708 Empty Bag 1 bag @ Titrate IV .Q0M [facility] Rx#: [id number] Tube Feeding 190 380 30 Other 110 120 Output: Urine 1890 575 125 Other: Voiding Method Indwelling Catheter Indwelling Catheter # Bowel Movements 1 ABP, PAP, CO, CI - Last Documented Arterial Blood Pressure 137/61 - Exam Intubated sedated S1-S2 heard Decreased breath sounds Edema - Labs CBC & Chem 7: 08/27/18 04:00 08/27/18 04:00 Labs: Abnormal Lab Results - Last 24 Hours (Table) 08/26/18 08/26/18 08/26/18 Range/Units 11:44 17:57 20:55 RBC (4.30-5.90) m/uL Hgb (13.0-17.5) gm/dL Hct (39.0-53.0) % Plt Count (150-450) k/uL Neutrophils # (1.3-7.7) k/uL Lymphocytes # (1.0-4.8) k/uL ABG pH (7.35-7.45) ABG pO2 (83-108) mmHg ABG HCO3 (21-25) mmol/L ABG Total CO2 (19-24) mmol/L Potassium 3.4 L (3.5-5.1) mmol/L Chloride (98-107) mmol/L Glucose (74-99) mg/dL POC Glucose (mg/dL) 196 H 226 H (75-99) mg/dL Calcium (8.4-10.2) mg/dL AST (17-59) U/L Total Protein (6.3-8.2) g/dL Albumin (3.5-5.0) g/dL 08/27/18 08/27/18 08/27/18 Range/Units 01:09 04:00 04:00 RBC 3.51 L (4.30-5.90) m/uL Hgb 10.9 L (13.0-17.5) gm/dL Hct 32.6 L (39.0-53.0) % Plt Count 91 L (150-450) k/uL Neutrophils # 8.6 H (1.3-7.7) k/uL Lymphocytes # 0.9 L (1.0-4.8) k/uL ABG pH (7.35-7.45) ABG pO2 (83-108) mmHg ABG HCO3 (21-25) mmol/L ABG Total CO2 (19-24) mmol/L Potassium (3.5-5.1) mmol/L Chloride 111 H (98-107) mmol/L Glucose 206 H (74-99) mg/dL POC Glucose (mg/dL) 272 H (75-99) mg/dL Calcium 7.6 L (8.4-10.2) mg/dL AST 107 H (17-59) U/L Total Protein 4.5 L (6.3-8.2) g/dL Albumin 2.3 L (3.5-5.0) g/dL 08/27/18 08/27/18 Range/Units 04:58 06:14 RBC (4.30-5.90) m/uL Hgb (13.0-17.5) gm/dL Hct (39.0-53.0) % Plt Count (150-450) k/uL Neutrophils # (1.3-7.7) k/uL Lymphocytes # (1.0-4.8) k/uL ABG pH 7.47 H (7.35-7.45) ABG pO2 68 L (83-108) mmHg ABG HCO3 28 H (21-25) mmol/L ABG Total CO2 29 H (19-24) mmol/L Potassium (3.5-5.1) mmol/L Chloride (98-107) mmol/L Glucose (74-99) mg/dL POC Glucose (mg/dL) 214 H (75-99) mg/dL Calcium (8.4-10.2) mg/dL AST (17-59) U/L Total Protein (6.3-8.2) g/dL Albumin (3.5-5.0) g/dL Microbiology - Last 24 Hours (Table) 08/25/18 10:54 Blood Culture - Preliminary Blood No Growth after 24 hours 08/25/18 09:15 Blood Culture - Preliminary Blood No Growth after 24 hours 08/25/18 09:10 Urine Culture - Final Urine,Catheterized 08/23/18 23:32 Gram Stain - Final Sputum Sputum Culture - Final Assessment and Plan Assessment: #1 nonoliguric acute kidney injury secondary to ischemic ATN. Creatinine back to baseline. #2 coronary artery disease status post cardiac cath and balloon pump #3 cardiogenic shock #4 alkalosis #5 acute respiratory failure on ventilator #6 edema Plan: #1 creatinine stable. Maintain hemodynamic support and when stable wean off pressors #2 consider adding diuretics Lasix 40 mg IV twice a day for volume. #3 avoid nephrotoxic agents and hypotensive episodes
--- NOTE | 2018-08-27 09:22 | P.PN ---
Subjective Progress Note Date: 08/27/18 Principal diagnosis: Acute non-ST segment elevated myocardial infarction, status post PCI and stenting of the distal RCA, and stenting of the PDA branch of the right coronary artery, and PCI and stenting of the SVG to the OM. Cardiogenic shock, bradycardia This is an 78-year-old gentleman who follows with Dr. Evangelista as his primary care physician. He has a history of coronary artery disease with previous coronary artery bypass grafting in 2008 where he received a GAVIRIA to the LAD, SVG to the diagonal and SVG to the OM, diabetes mellitus type 2, dementia, pneumonia/sepsis, prostate cancer, chronic back pain, renal colic, hyperlipidemia, hypertension. He presented to [facility] on 08/22/2018 with complaints of chest pain. This was initially described as sharp and stabbing per the ER notes. No shortness of breath. He was given nitroglycerin and the EMS with minimal improvement. He was admitted there for the same. On 08/23/2018 he had ongoing chest pain and had undergone cardiac catheterization at [facility] was found to have an occluded left main, severe disease involving the distal right coronary artery, patent GAVIRIA to the LAD, occluded SVG to the diagonal and in her immediate to severe disease involving the ostial of the SVG to the OM. He was found to have an acute non-ST segment elevation myocardial infarction subsequent transferred here yesterday where he did undergo successful stenting of the distal right coronary artery and PDA b ranch of the coronary artery. He did develop occlusion of the distal branches transiently which were opened up and the patient went into complete heart block and received a transvenous temporary pacemaker. He was then placed in the intensive care unit. Later he developed ongoing chest discomfort, hypotension and taken back to the [facility] Director Intelligence Officer. He subsequently received intra-aortic balloon pump and stenting of the saphenous vein grafts to the obtuse marginal branch of the circumflex. At that time he required intubation mechanical ventilatory support. He was again returned to the ICU. He is seen today in consultation. He is currently on mechanical ventilator assist control of 16, tidal volume 500, FiO2 100% and a PEEP of 5. Most recent blood gases reveal a P O2 of 110, pCO2 29, pH of 7.28. Arterial blood gases prior to that were a P O2 131, pCO2 28 and a pH of 7.11 where he did receive 2 A of sodium bicarb and then increased the sodium bicarb drip which has 3 A of bicarb to 125 ML's per hour. He is sedated with propofol at 15 mcg/kg/m. He has dopamine at 3 mcg/kg/m. Insulin drip at 17 units per hour, norepinephrine at 20 mcg/m, 0.9 normal saline at 150 ML's per hour. His intra-aortic balloon pump is in place at 1:1. Chest x-ray reveals evidence of mild congestive heart failure. Current temperature 99.4. Blood pressure 94/60 On 08/25/2018 patient was seen in follow-up in the intensive care unit. He remains sedated, and intubated on mechanical ventilator, current vent settings are assist-control mode of ventilation with a rate of 16, tidal 01/01/1952, FiO2 100%, and PEEP of 8. The gases were reviewed, showing pO2 of 68, pCO2 36, and pH of 7.50. Patient's bicarbonate drip has been discontinued, we will increase the PEEP up to 12. He remains on intra-aortic balloon pump, with one-to-one augmentation, transvenous pacemaker is in place, the rate of 90, pacing 100%, underlying rhythm is bradycardia, possibly sinus, with first-degree heart block. Pressure is 80s to 90s systolic, with 50s diastolic, patient has been having intermittent low-grade fevers, T-max in last 24 hours is 100.7F this morning. Blood cultures, sputum culture urine culture have been sent, pending, preliminary sputum Gram stain showed no epithelial cells, rare gram-positive cocci. Final cultures pending. Today's labs have been reviewed, showing white blood cell count of 12.2, chiefly trending down, from 24.5 on yesterday's labs. Hemoglobin of 11.3, platelet count of 106, serum sodium is 143, potassium is 3.6, chloride is 109, CO2 is 31, B1 of 18, creatinine is 1.04. Patient's troponin topped at 71.9. Lung sounds are diminished. Distal pulses are intact. Today's chest x-ray has been reviewed, showing volume overload, interstitial edema, basilar atelectasis, and bilateral pleural effusions. Patient has been weaned off the levo fed drip, remains on dobutamine drip, currently at 3 mics per kilo per minute, heparin drip per weight-based protocol, insulin drip is on hold, Diprivan and is at 40 mics per kilo per minute. On 08/27/2018 patient seen in follow-up in the intensive care unit, he is intubated, on mechanical ventilator, current vent settings are assist-control mode of ventilation with a rate of 16, tidal vital 450, FiO2 of 50% and PEEP of 16, this morning his blood gases showed pO2 of 68, pCO2 38, pH of 7.47. This was done and FiO2 of 50%. Diprivan is currently on hold, yesterday patient was given on daily traction of sedation, apparently he did become tachypneic, but did follow simple commands to squeeze hands on command, did not open eyes. In view of tachypnea, was placed back on sedation yesterday. We'll try waking him up again today. Other IV drips include 0.9 normal saline at a rate of 75 ML per hour, dopamine is at 3 mics per kilo per minute. Levo fed has been on hold for last 48 hours. He is tolerating tube feedings, of vital high-protein rate of 30, with a goal of 30 with stenting of water flushes. Intra-aortic balloon pump has been weaned and discontinued yesterday. Vital signs are stable, she is still being 100% paced at a rate of 50, underlying rhythm is bradycardia, with a rate of 44-48 p.m. today's chest x-ray has been reviewed, showing improving changes of congestive heart failure, still some residual interstitial edema, and left pleural effusion. Patient was given a dose of IV Lasix per cardiology this morning, IV fluids were decreased down to 75 from 125. Afebrile in the last 24 hours. Sputum, urine and blood cultures are negative thus far. Today's labs have been reviewed, showing red blood cell, 10.1, hemoglobin of 10.9, platelet count is 91, serum sodium is 142, potassium 3.7, chloride is 111, CO2 is 28, BUN of 16 and creatinine is 0.83. Patient is in positive fluid balance, 2608 mL over the last 24 hours. Objective - Vital Signs Vital signs: Vital Signs Temp 98.5 F 08/27/18 04:00 Pulse 50 L 08/27/18 07:23 Resp 29 H 08/27/18 07:00 BP 109/62 08/27/18 05:30 Pulse Ox 88 L 08/27/18 07:00 Intake & Output 08/26/18 08/27/18 08/27/18 18:59 06:59 18:59 Intake Total 2483.394 2590.365 158 Output Total 1890 575 125 Balance 438.709 2707.365 33 Weight 105.1 kg 106.3 kg Intake: IV 1586 1586 128 Arterial Sheath pressure 36 36 3 bag Sodium Chloride 0.9% 1, 1500 1500 125 000 ml @ 125 mls/hr IV . Q8H AALIYAH Rx#:[id number] ceFAZolin 1,000 mg In 50 50 Sodium Chloride 0.9% 50 ml @ 100 mls/hr IVPB Q8HR AALIYAH Rx#:[id number] Intake, IV Titration 597.394 504.365 Amount DOPamine DRIP 800 mg In 225.606 117.657 Dextrose/Water 1 250ml. bag @ 10 MCG/KG/MIN 17. 813 mls/hr IV .Q14H3M AALIYAH Rx#:[id number] Propofol 1,000 mg In 371.788 386.708 Empty Bag 1 bag @ Titrate IV .Q0M AALIYAH Rx#: [id number] Tube Feeding 190 380 30 Other 110 120 Output: Urine 1890 575 125 Other: Voiding Method Indwelling Catheter Indwelling Catheter # Bowel Movements 1 ABP, PAP, CO, CI - Last Documented Arterial Blood Pressure 137/61 - Exam GENERAL EXAM: Sedated, intubated, obese, 78-year-old white male comfortable in no apparent distress. HEAD: Normocephalic/atraumatic. EYES: Normal reaction of pupils, equal size. Conjunctiva pink, sclera white. NOSE: Clear with pink turbinates. THROAT: No erythema or exudates. NECK: No masses, no JVD, no thyroid enlargement, no adenopathy. CHEST: No chest wall deformity. Symmetrical expansion. LUNGS: Equal air entry with no crackles, wheeze, rhonchi or dullness. CVS: Regular rate and rhythm, normal S1 and S2, no gallops, no murmurs, no rubs ABDOMEN: Soft, nontender. No hepatosplenomegaly, normal bowel sounds, no guarding or rigidity. EXTREMITIES: No clubbing, no edema, no cyanosis, 2+ pulses and upper and lower extremities. Right groin TVP, interval removal of intra-aortic balloon pump MUSCULOSKELETAL: Muscle strength and tone normal. SPINE: No scoliosis or deformity SKIN: No rashes CENTRAL NERVOUS SYSTEM: Sedated. No focal deficits, tone is normal in all 4 extremities. PSYCHIATRIC: Sedated. - Labs CBC & Chem 7: 08/27/18 04:00 08/27/18 04:00 Labs: Abnormal Lab Results - Last 24 Hours (Table) 08/26/18 08/26/18 08/26/18 Range/Units 11:44 17:57 20:55 RBC (4.30-5.90) m/uL Hgb (13.0-17.5) gm/dL Hct (39.0-53.0) % Plt Count (150-450) k/uL Neutrophils # (1.3-7.7) k/uL Lymphocytes # (1.0-4.8) k/uL ABG pH (7.35-7.45) ABG pO2 (83-108) mmHg ABG HCO3 (21-25) mmol/L ABG Total CO2 (19-24) mmol/L Potassium 3.4 L (3.5-5.1) mmol/L Chloride (98-107) mmol/L Glucose (74-99) mg/dL POC Glucose (mg/dL) 196 H 226 H (75-99) mg/dL Calcium (8.4-10.2) mg/dL AST (17-59) U/L Total Protein (6.3-8.2) g/dL Albumin (3.5-5.0) g/dL 08/27/18 08/27/18 08/27/18 Range/Units 01:09 04:00 04:00 RBC 3.51 L (4.30-5.90) m/uL Hgb 10.9 L (13.0-17.5) gm/dL Hct 32.6 L (39.0-53.0) % Plt Count 91 L (150-450) k/uL Neutrophils # 8.6 H (1.3-7.7) k/uL Lymphocytes # 0.9 L (1.0-4.8) k/uL ABG pH (7.35-7.45) ABG pO2 (83-108) mmHg ABG HCO3 (21-25) mmol/L ABG Total CO2 (19-24) mmol/L Potassium (3.5-5.1) mmol/L Chloride 111 H (98-107) mmol/L Glucose 206 H (74-99) mg/dL POC Glucose (mg/dL) 272 H (75-99) mg/dL Calcium 7.6 L (8.4-10.2) mg/dL AST 107 H (17-59) U/L Total Protein 4.5 L (6.3-8.2) g/dL Albumin 2.3 L (3.5-5.0) g/dL 08/27/18 08/27/18 Range/Units 04:58 06:14 RBC (4.30-5.90) m/uL Hgb (13.0-17.5) gm/dL Hct (39.0-53.0) % Plt Count (150-450) k/uL Neutrophils # (1.3-7.7) k/uL Lymphocytes # (1.0-4.8) k/uL ABG pH 7.47 H (7.35-7.45) ABG pO2 68 L (83-108) mmHg ABG HCO3 28 H (21-25) mmol/L ABG Total CO2 29 H (19-24) mmol/L Potassium (3.5-5.1) mmol/L Chloride (98-107) mmol/L Glucose (74-99) mg/dL POC Glucose (mg/dL) 214 H (75-99) mg/dL Calcium (8.4-10.2) mg/dL AST (17-59) U/L Total Protein (6.3-8.2) g/dL Albumin (3.5-5.0) g/dL Microbiology - Last 24 Hours (Table) 08/25/18 10:54 Blood Culture - Preliminary Blood No Growth after 24 hours 08/25/18 09:15 Blood Culture - Preliminary Blood No Growth after 24 hours 08/25/18 09:10 Urine Culture - Final Urine,Catheterized 08/23/18 23:32 Gram Stain - Final Sputum Sputum Culture - Final Assessment and Plan Plan: #1 Acute non-ST segment elevation myocardial infarction status post stenting to the distal right coronary artery and stenting of the PDA branch of the right coronary artery with transient bradycardia requiring insertion of transvenous temporary pacemaker. He subsequently developed recurrent chest pain cardiogenic shock and was taken back to the [facility] and received stenting to the saphenous vein graft to the obtuse marginal branch of the circumflex. Insertion of intra-aorti c balloon pump. Reposition of the TVP. Intubated and on mechanical ventilation. #2 Cardiogenic shock secondary to above, recovering #3 Previous history of coronary artery disease with coronary artery bypass grafting utilizing the GAVRIIA to the LAD, saphenous vein grafts to the diagonal and OM back in 2008. #4 Diabetes mellitus, type II. #5 Dementia. #6 Prostate cancer. #7 Previous history of pneumonia/sepsis. #8 Chronic back pain. #9 History of renal colic. #10 Hyperlipidemia. #11 Hypertension. Plan: We'll continue with current vent settings. This morning blood gases, chest x- ray has been reviewed by Dr. Baldwin. Agree with the dose of IV Lasix, and decreasing the IV fluid. Remains on small dose of dopamine, Levophed has been on hold for last 24-48 hours. Continues on the TVP, patient 100% paced with a bradycardic rhythm intrinsically. Microbiological data has been reviewed, and all cultures remain negative. No fever or chills, no leukocytosis. Continue GI and DVT prophylaxis. Teen to follow. We'll proceed with DIS this morning. I performed a history & physical examination of the patient and discussed their management with my nurse practitioner, Saranya hCavis. I reviewed the nurse practitioner's note and agree with the documented findings and plan of care. Lung sounds are diminished breath sounds. The findings and the impression was discussed with the patient. I attest to the documentation by the nurse practitioner. Time with Patient: Greater than 30
--- NOTE | 2018-08-27 09:39 | PN ---
PROGRESS NOTE Mr. Vega remains in sinus rhythm with a second-degree heart block and sometimes third-degree heart block. Heart rate is in the 50s. He has a backup pacemaker which he is using quite a bit. Hemodynamically stable. Decent urine output. Creatinine is normal. Ejection fraction in the 40% range. Oxygenation is down to 50% compared to yesterday. However, chest x-ray also shows modest improvement. I am recommending that we decrease IV fluids to 75 mL/hour normal saline and give him Lasix 40 mg IV push. He will be seen by Dr. Baldwin and weaning efforts are in progress. Blood pressure is 140/80, pulse rate is about 50 per minute. JVD is 1 cm. S1-S2 heard normally. Short systolic murmur noted. Lungs reveal improved air entry. Abdomen and lower extremity exam unchanged. Prognosis remains guarded. We will leave the pacemaker in for now and we will make a decision regarding a pacemaker tomorrow. If he continues to use it a lot, he may need a permanent pacemaker to be placed. Patient has underlying left bundle. Prognosis remains guarded. MMODL / IJN: [id number] /
[2018-08-27] MEDS: SODIUM CHLORIDE 0.9% 1,000 ML IV SCH ×2 (09:48→09:55)
[2018-08-27] MEDS: CLOPIDOGREL 75 MG TAB PO SCH (09:54)
[2018-08-27] MEDS: CHLORHEXIDINE GLUCONATE 15 ML CUP MUCOUS MEM SCH ×2 (09:54→20:32)
[2018-08-27] MEDS: HEPARIN SODIUM,PORCINE 5,000 UNIT/ML 1 ML VIAL SQ SCH ×2 (09:54→15:31)
[2018-08-27] MEDS: ASPIRIN 81 MG PO SCH (09:54)
[2018-08-27] MEDS: PANTOPRAZOLE 40 MG/10 ML VIAL IVP SCH (09:54)
[2018-08-27] MEDS: ATORVASTATIN 40 MG TAB PO SCH (09:54)
[2018-08-27] MEDS: MULTIVITAMINS, THERA 1 EACH TAB PO SCH (09:54)
--- NOTE | 2018-08-27 10:41 | XR ---
EXAMINATION TYPE: XR chest 1V confirm line plcar DATE OF EXAM: 08/27/2018 HISTORY: Central line placed. REFERENCE: Previous study dated earlier today. FINDINGS: There is been interval placement of a right internal jugular catheter. Its tip is at the ca voatrial junction. I do not see a complicating pneumothorax. There has been a midline sternotomy. The patient is ET tube and NG tube remain in place, unchanged in appearance. There is bibasilar airspace disease. There are small effusions. Heart is upper limits of normal in si ze. IMPRESSION: I DO NOT SEE A POST CATHETER INSERTION COMPLICATION.
--- NOTE | 2018-08-27 11:40 | XR ---
EXAMINATION TYPE: XR chest 1V portable DATE OF EXAM: 08/27/2018 HISTORY: ett placement. REFERENCE: Previous study dated 08/26/2018. FINDINGS: The patient is ET tube and NG tube are remain in place, unchanged in appearance. There has been a previous midline sternotomy. Heart size upper limits of normal. There is vascular congestion and subtle interstitial change. There is left basilar airspace disease. There are small, bilateral effusions. IMPRESSION: 1. CONTINUING MILD CHANGES OF HEART FAILURE. 2. LEFT BASILAR AIRSPACE DISEASE. 3. SMALL, BILATERAL EFFUSIONS.
[2018-08-27 11:53] LABS: Glucose,Whole Blood 206 mg/dL (75-99)
[2018-08-27] MEDS: PREVAGEN PO SCH (12:07)
--- NOTE | 2018-08-27 12:51 | PCN ---
PROCEDURE NOTE PROCEDURE: Left internal jugular triple-lumen catheter. PREOP DIAGNOSIS: Administration of fluids and pressors. POSTOP DIAGNOSIS: Administration of fluids and pressors. INDICATIONS: Hypotension. FORMING PRESS OPERATOR: Dr. Baldwin. He was assisted by Stephanie Chavis. TRIPLE LUMEN CATHETER PLACEMENT: Indication: Hemodynamic monitoring/Intravenous access. A time-out was completed verifying correct patient, procedure, site, positioning, and implant(s) or special equipment if applicable. The patient was placed in a dependent position appropriate for triple lumen catheter placement based on the vein to be cannulated. The patient's left neck was prepped and draped in sterile fashion. 1% Lidocaine was used to anesthetize the surrounding skin area. A triple lumen 9F Cordis catheter was introduced into the left internal jugular vein using Seldinger technique. The catheter was threaded smoothly over the guide wire and appropriate blood return was obtained. Each lumen of the catheter was evacuated of air and flushed with sterile saline. The catheter was then sutured in place to the skin and a sterile dressing applied. Perfusion to the extremity distal to the point of catheter insertion was checked and found to be adequate. There was no immediate complication. There was good blood return from all 3 ports. The catheter was sutured in place. Sterile dressing was applied by the nurse. X-ray revealed catheter to be in the SVC or the right atrium. There was no immediate complication. MMODL / IJN: [id number] /
[2018-08-27 17:16] LABS: Glucose,Whole Blood 200 mg/dL (75-99)
--- NOTE | 2018-08-27 17:23 | P.PN ---
Progress Note - Text Progress Note Date: 08/27/18 Chief Complaint: chest pain Interval history: This is a 78-year-old patientof Dr. Dean Evangelista.chronic stable medical conditions include diabetes, hyperlipidemia, hypertension, osteoarthritis, obstructive sleep apnea. Patient's a prior history of coronary bypass. Patient presented to [facility] of with an acute non-Q-wave AR. He did undergo cardiac catheterization was found to have significant coronary artery disease. Patient was subsequently transferredhere yesterday for coronary intervention.patient was taken to the cardiac label press operator. Intervention was carried out. Patient did not have a very smooth course and subsequently patient was transferred to the ICU subsequently. Today-in the ICU. Remains intubated. FiO2 50%, PEEP of 16. Telemetry shows a heart rate around 60 with intermittent pacing. 2 feeding is being started today. Current drips include dopamine at 3 mics, Levothroid was taken off last night. On propofol. Urine output has been satisfactory. Patient sedated Review of systems: Could not be done as patient is intubated Current medications reviewed that included: DuoNeb, Lipitor, IV Ancef, Plavix, sodium bicarbonate drip, IV dopamine, IV heparin, insulin drip,IV levo fed stopped last night, IV propofol drip and normal saline. Physical examination: VITAL SIGNS: 98.5, 68, 18, 132/58, 93% on the ventilator GENERAL: [BMI 35.6, laying in bed, intubated, ]. EYES: [Pupils equal. Conjunctiva hayden]l. HEENT: [External appearance of nose and ears normal, endotracheal tube in placel]. NECK: [JVD unable to assess; masses not palpable]. HEART: [First and second heart sounds are normal; no edema]. LUNGS:[ Respiratory rate increase; decreased breath soundn]. ABDOMEN: [Soft, nontender, liver spleen not palpable, no masses palpable]. PSYCH: [sedated and intubated]l. NEUROLOGICAL: [Cranial nerves grossly intact; no facial asymmetry, pupils are reactive Investigations, reviewed in the clinical context: White count 14.1, hemoglobin 11.7, platelets 96 potassium 4.4 creatinine 1.01 Assessment: -Acute non-Q-wave myocardial infarction -Coronary artery disease with severe significant disease to the left main and right coronary artery. With coronary intervention -Acute cardiogenic shock shock requiring balloon pump support, that was stopped today on 07/30 10/16 -Complete heart block requiring a temporary venous pacemaker, currently in first degree AV block. -Diabetes mellitus type 2 chronically on insulin uncontrolled continue insulin drip -Hyperlipidemia -Primary osteoarthritis -obstructive. sleep apnea -Chronic bladder outflow obstruction -Severe metabolic acidosis multifactorial -Acute renal failure possibly ATN from cardiorenal syndrome from cardiogenic shock, with improvement -Thrombocytopenia, new onset patient is on antiplatelet agents Plan: Prognosis remains guarded. Continue with supportive care including being on the ventilator, IV propofol, tube feeding is being started. Prognosis is guarded Will consider consulting hematology.
[2018-08-27] MEDS: NOREPINEPHRINE 32 MG in SODIUM CHLORIDE 0.9% 218 ML IV SCH (20:38)
--- NOTE | 2018-08-27 21:53 | P.PN ---
Progress Note - Text Progress Note Date: 08/27/18 Chief Complaint: chest pain Interval history: This is a 78-year-old patientof Dr. Dean Evangelista.chronic stable medical conditions include diabetes, hyperlipidemia, hypertension, osteoarthritis, obstructive sleep apnea. Patient's a prior history of coronary bypass. Patient presented to [facility] of with an acute non-Q-wave ID. He did undergo cardiac catheterization was found to have significant coronary artery disease. Patient was subsequently transferredhere yesterday for coronary intervention.patient was taken to the cardiac laboratory miller. Intervention was carried out. Patient did not have a very smooth course and subsequently patient was transferred to the ICU subsequently. Today-in the ICU. Intubated. On the ventilator. FiO2 40 and the people 16. 2 feeding is at goal at 30 mL an hour. Patient is on VVI pacemaker set at 50. Currently heart rate is around 60s. High beef drips include dopamine at 3 mics and propofol at 50 mics. Urine output has been satisfactory. Review of systems: Could not be done as patient is intubated Current medications reviewed that included: DuoNeb, Lipitor, IV Ancef, Plavix, IV dopamine,,, IV propofol drip and normal saline. Physical examination: VITAL SIGNS: Afebrile, 73, 18, 03/08/1963, 94% on the ventricular GENERAL: [laying in bed, intubated, ]. EYES: [Pupils equal. Conjunctiva hayden]l. HEENT: [External appearance of nose and ears normal, endotracheal tube in placel]. NECK: [JVD unable to assess; masses not palpable]. HEART: [First and second heart sounds are normal; no edema]. LUNGS:[ Respiratory rate increase; decreased breath soundn]. ABDOMEN: [Soft, nontender, liver spleen not palpable, no masses palpable]. PSYCH: [sedated and intubated]l. NEUROLOGICAL: [Cranial nerves grossly intact; no facial asymmetry, pupils are reactive Investigations, reviewed in the clinical context: White count 10.1, hemoglobin 10.9, platelets 91 PH 7.47 potassium 3.7 albumin 16 creatinine 0.83 Assessment: -Acute non-Q-wave myocardial infarction -Coronary artery disease with severe significant disease to the left main and right coronary artery. With coronary intervention -Acute cardiogenic shock shock requiring balloon pump support, that was stopped on 07/30 10/16 -Complete heart block requiring a temporary venous pacemaker, currently in first degree AV block. -Diabetes mellitus type 2 chronically on insulin uncontrolled status post insulin drip -Hyperlipidemia -Primary osteoarthritis -obstructive. sleep apnea -Chronic bladder outflow obstruction -Severe metabolic acidosis multifactorial -Acute renal failure possibly ATN from cardiorenal syndrome from cardiogenic shock, corrected -Thrombocytopenia, new onset patient is on antiplatelet agents Plan: Continue with supportive care. Patient remains on dopamine and IV propofol drip. On antiplatelet agents. Hematology is consulted. Prognosis remains guarded..
[2018-08-27 23:42] LABS: Glucose,Whole Blood 239 mg/dL (75-99)
[2018-08-28] MEDS: INSULIN ASPART (NovoLOG) 100 UNIT/ML VIAL SQ SCH ×5 (00:02→21:18)
[2018-08-28] MEDS: HEPARIN SODIUM,PORCINE 5,000 UNIT/ML 1 ML VIAL SQ SCH ×3 (00:02→15:46)
[2018-08-28] MEDS: SODIUM CHLORIDE 0.9% 1,000 ML IV SCH ×2 (00:03→12:23)
[2018-08-28] MEDS: PROPOFOL 1,000 MG in EMPTY BAG 1 BAG IV SCH ×3 (00:03→09:57)
[2018-08-28] MEDS: IPRATROPIUM-ALBUTEROL 3 ML NEB INHALATION SCH ×6 (03:25→23:36)
[2018-08-28 04:38] LABS: ABG Base Excess 4.9 mmol/L; ABG HCO3 28 mmol/L (21-25); ABG Oxygen Saturation 90.6 % (94-97); ABG PCO2 36 mmHg (35-45); ABG TCO2 29 mmol/L (19-24); Allen Test Performed? Yes
[2018-08-28] MEDS: DOPamine DRIP 800 MG in DEXTROSE/WATER 1 250ML.BAG IV SCH ×2 (04:38→18:39)
[2018-08-28 06:02] LABS: Glucose,Whole Blood 244 mg/dL (75-99)
[2018-08-28 06:48] LABS: Basophils % (A) 0 %; Eosinophils # (A) 0.1 k/uL (0-0.7); Eosinophils % (A) 1 %; HCT 35.2 % (39.0-53.0); HGB 11.2 gm/dL (13.0-17.5); Lymphocytes # (A) 0.8 k/uL (1.0-4.8); Lymphocytes % (A) 9 %; MCH 29.9 pg (25.0-35.0); MCV 93.6 fL (80.0-100.0); Mean Platelet Volume 10.1; Monocytes # (A) 0.4 k/uL (0-1.0); Monocytes % (A) 5 %; Neutrophils # (A) 8.3 k/uL (1.3-7.7); Neutrophils % (A) 84 %; Platelet Count 125 k/uL (150-450); RBC 3.76 m/uL (4.30-5.90); RDW 14.2 % (11.5-15.5); WBC 9.8 k/uL (3.8-10.6)
[2018-08-28 07:07] LABS: ALT 56 U/L (21-72); AST 75 U/L (17-59); African American GFR (CKD) >90 (>60 ml/min/1.73 sqM); Albumin 2.4 g/dL (3.5-5.0); Alkaline Phosphatase 132 U/L (38-126); Anion Gap 6 mmol/L; Blood Urea Nitrogen 15 mg/dL (9-20); Calcium 7.7 mg/dL (8.4-10.2); Carbon Dioxide 27 mmol/L (22-30); Chloride 109 mmol/L (98-107); Glucose 235 mg/dL (74-99); Potassium 3.5 mmol/L (3.5-5.1); Sodium 142 mmol/L (137-145); Total Bilirubin 0.6 mg/dL (0.2-1.3); Total Protein 4.7 g/dL (6.3-8.2)
[2018-08-28] MEDS ORDERED: FUROSEMIDE 10 MG/ML 4 ML VIAL IV STA (08:38)
[2018-08-28] MEDS: PANTOPRAZOLE 40 MG/10 ML VIAL IVP SCH (09:17)
[2018-08-28] MEDS: POTASSIUM BICARBONATE/CIT AC 20 MEQ TABLET.EFF NG-TUBE SCH ×2 (09:17→10:45)
[2018-08-28] MEDS: CLOPIDOGREL 75 MG TAB PO SCH (09:18)
[2018-08-28] MEDS: ATORVASTATIN 40 MG TAB PO SCH (09:18)
[2018-08-28] MEDS: CHLORHEXIDINE GLUCONATE 15 ML CUP MUCOUS MEM SCH ×2 (09:18→21:17)
[2018-08-28] MEDS: ASPIRIN 81 MG PO SCH (09:18)
[2018-08-28] MEDS: MULTIVITAMINS, THERA 1 EACH TAB PO SCH (09:18)
[2018-08-28] MEDS: PREVAGEN PO SCH (09:20)
--- NOTE | 2018-08-28 09:27 | PCN ---
PROCEDURE NOTE PROCEDURE PERFORMED: Right radial arterial line placement. PREOP DIAGNOSIS: Cardiogenic shock. POSTOP DIAGNOSIS: Cardiogenic shock. ARTERIAL LINE PLACEMENT: Indications: Hemodynamic monitoring. A time-out was completed verifying correct patient, procedure, site, positioning, and implant(s) or special equipment if applicable. Corey's test was performed to ensure adequate perfusion. The patient's right wrist was prepped and draped in sterile fashion. 1% Lidocaine was used to anesthetize the area. An 18G Arrow arterial line was introduced into the radial artery. The catheter was threaded over the guide wire and the needle was removed with appropriate pulsatile blood return. Blood loss was minimal. The catheter was then sutured in place to the skin and a sterile dressing applied. Perfusion to the extremity distal to the point of catheter insertion was checked and found to be adequate. The patient tolerated the procedure well and there were no immediate complications. Good waveform was noted on the monitor, line was flushed, sutured in place, sterile dressing was applied. MMODL / IJN: [id number] /
--- NOTE | 2018-08-28 10:54 | PN ---
PROGRESS NOTE Mr. Vega is still deeply sedated on a ventilator. His oxygenation seems to be somewhat suboptimal on 50% FiO2 and a PEEP of 16. Hemodynamically, he is stable. He remains in a second-degree and sometimes third-degree heart block, but the ventricular rate has picked up in the 70s. He is doing better in this regard. He is not using the pacemaker. S1-S2 heard normally, but distantly. Short systolic murmur noted. Lungs reveal ventilator assisted breaths sounds fairly decent. Abdomen is soft. Lower extremities reveal diminished pulses. Central nervous system assessment was not performed. Plan is to continue supportive care. I will give [address] dose [address] Ko will see him and see if we can try weaning efforts. MMODL / IJN: [id number] /
[2018-08-28] MEDS ORDERED: INSULIN ASPART (NovoLOG) 100 UNIT/ML VIAL SQ ONE (11:12)
--- NOTE | 2018-08-28 11:33 | XR ---
EXAMINATION TYPE: XR chest 1V portable DATE OF EXAM: 08/28/2018 COMPARISON: Prior chest x-ray 08/27/2018 HISTORY: Intubated TECHNIQUE: Single frontal view of the chest is obtained. FINDINGS: Endotracheal tube and orogastric tube, left jugular central venous catheter are overlying appropriate positions. Bibasilar increased density persists, there is blunting the costophrenic angle s. No pneumothorax. Heart size is stable. Patient is rotated. IMPRESSION: Findings are similar to prior exam. Basilar atelectasis versus edema and associated effu sions.
[2018-08-28 12:08] LABS: Glucose,Whole Blood 290 mg/dL (75-99)
[2018-08-28] MEDS: INSULIN DETEMIR (LEVEMIR) 100 UNIT/ML SYR SQ SCH (12:10)
[2018-08-28 15:35] LABS: Glucose,Whole Blood 279 mg/dL (75-99)
[2018-08-28] MEDS: FUROSEMIDE 10 MG/ML 4 ML VIAL IV SCH (15:46)
--- NOTE | 2018-08-28 16:08 | P.CONS ---
History of Present Illness - Reason for Consult Consult date: 08/28/18 Thrombocytopenia Requesting physician: Rambo Baldwin - Chief Complaint NSTEMI - History of Present Illness Mr. Vega presented to [facility] after transferred from outside hospital with Acute AK. He is currently on ventilator support, most of history obtained from medical chart and bedside RN. No family at bedside. He has history of: Diabetes, hyperlipidemia, hypertension, osteoarthritis, obstructive sleep apnea. Past history of CABG. After arrival to [facility] he was subsequently taken to labor representative, intubated. He has 3rd degree heart block and pacemaker. His Review of Systems ROS unobtainable: due to endotracheal tube Past Medical History Past Medical History: Coronary Artery Disease (CAD), Cancer, Diabetes Mellitus, Hyperlipidemia, Hypertension, Memory Impairment, Osteoarthritis (OA), Pneumonia, Prostate Disorder, Sleep Apnea/CPAP/BIPAP Additional Past Medical History / Comment(s): Prostate cancer-2010- tx with radiation. HAS ABD ADHESIONS, History of Any Multi-Drug Resistant Organisms: None Reported Past Surgical History: Appendectomy, Back Surgery, Cholecystectomy, Coronary Bypass/CABG, Heart Catheterization, Hernia Repair, Joint Replacement, Orthopedic Surgery Additional Past Surgical History / Comment(s): ORIF Rt Ankle. ORIF Rt Fibula Surgery. RT Knee Replacement. 2008 Triple CABG. Abdominal adhesions. Fatty tumor from neck. CTR jono. Abdominal surgery with mesh in 2001. Back nerve surgery. Rotator cuff-left shoulder. ING hernia repair w/ mesh. 3 fatty t umors removed 08/15/15, COLONOSCOPY Past Anesthesia/Blood Transfusion Reactions: No Reported Reaction Smoking Status: Never smoker - Past Family History Father History Unknown: Yes Family Medical History: Cancer Additional Family Medical History / Comment(s): PROSTATE CANCER Son(s) Family Medical History: Cancer Additional Family Medical History / Comment(s): TESTICULAR CANCER Mother Family Medical History: Coronary Artery Disease (CAD), Hypertension Sister(s) Family Medical History: Cancer Medications and Allergies Home Medications Medication Instructions Recorded Confirmed Type INSULIN LISPRO (humaLOG) [humaLOG] See Protocol SQ ACHS 11/07/13 08/23/18 History amLODIPine [Norvasc] 10 mg PO W/SUPPER 11/07/13 08/23/18 History Amiodarone [Cordarone] 200 mg PO W/SUPPER 03/23/15 08/23/18 History Cholecalciferol [Vitamin D3 (25 1,000 unit PO W/SUPPER 07/14/15 08/23/18 History Mcg = 1000 Iu)] Insulin Glargine [Lantus] 47 unit SQ QAM 07/14/15 08/23/18 History HYDROcodone/APAP 10-325MG [Harrington 1 tab PO DAILY PRN 02/23/17 08/23/18 History 10-325] Tamsulosin [Flomax] 0.4 mg PO HS 07/14/17 08/23/18 History Meclizine [Antivert] 25 mg PO DAILY PRN 08/03/17 08/23/18 History Pravastatin Sodium [Pravachol] 40 mg PO DAILY 08/03/17 08/23/18 History Gabapentin 600 mg PO TID 02/14/18 08/23/18 History Multivitamins, Thera [Multivitamin 1 each PO DAILY 07/04/18 08/23/18 History (formulary)] Prevagen 1 each PO DAILY 07/04/18 08/23/18 History traMADol HCL [Ultram] 50 mg PO Q6H PRN 08/23/18 08/23/18 History Allergies Allergy/AdvReac Type Severity Reaction Status Date / Time Iodinated Contrast- Oral and Allergy Rash/Hives Verified 08/23/18 17:35 IV Dye iodine Allergy Rash/Hives Verified 08/23/18 17:35 Penicillins Allergy Swelling Verified 08/23/18 17:35 duloxetine [From Cymbalta] AdvReac PRICKLY Verified 08/23/18 17:35 FEELING IN HEAD povidone-iodine AdvReac Itchy,red Verified 08/23/18 17:35 [From Betadine] skin soap [From Betadine] AdvReac Itchy,red Verified 08/23/18 17:35 skin Surgical Scrub Allergy Unknown Itching, Uncoded 07/04/18 12:24 Red skin Physical Exam Vitals: Vital Signs Temp Pulse Resp BP Pulse Ox 08/28/18 11:22 106 H 08/28/18 07:40 83 08/28/18 07:14 75 08/28/18 06:00 85 22 109/62 94 L 08/28/18 05:30 80 21 109/62 95 08/28/18 05:00 71 23 92 L 08/28/18 04:30 73 26 H 109/62 93 L 08/28/18 04:00 98.8 F 73 18 109/62 93 L 08/28/18 03:34 73 08/28/18 03:30 75 19 109/62 92 L 08/28/18 03:20 82 08/28/18 03:00 80 30 H 109/62 92 L 08/28/18 02:30 80 20 109/62 93 L 08/28/18 02:00 71 22 92 L 08/28/18 01:30 74 22 93 L 08/28/18 01:00 75 23 92 L 08/28/18 00:30 82 17 94 L 08/28/18 00:00 98.7 F 75 28 H 94 L 08/27/18 23:30 70 18 93 L 08/27/18 23:28 62 08/27/18 23:15 67 08/27/18 23:00 68 23 93 L 08/27/18 22:30 71 18 94 L 08/27/18 22:00 70 23 93 L 08/27/18 21:30 71 22 93 L 08/27/18 21:00 82 27 H 93 L 08/27/18 20:30 76 20 93 L 08/27/18 20:00 98.3 F 67 20 93 L 08/27/18 19:30 67 19 93 L 08/27/18 19:23 76 18 08/27/18 19:14 68 19 08/27/18 19:03 74 19 95 08/27/18 19:00 71 18 109/62 95 08/27/18 18:30 73 18 109/62 94 L 08/27/18 18:00 75 22 94 L 08/27/18 17:30 82 23 109/62 93 L 08/27/18 17:00 66 26 H 109/62 94 L 08/27/18 16:30 66 22 109/62 94 L 08/27/18 16:10 21 08/27/18 16:00 97.6 F 65 26 H 109/62 95 08/27/18 15:54 62 08/27/18 15:45 60 21 08/27/18 15:30 61 19 109/62 95 08/27/18 15:00 59 L 22 109/62 95 08/27/18 14:30 59 L 26 H 94 L 08/27/18 14:00 60 26 H 109/62 95 08/27/18 13:30 61 33 H 109/62 94 L 08/27/18 13:00 59 L 32 H 109/62 94 L 08/27/18 12:30 62 23 109/62 94 L 08/27/18 12:00 97.4 F L 64 21 109/62 95 Intake and Output 08/27/18 08/28/18 08/28/18 22:59 06:59 14:59 Intake Total 1054 1252 116.119 Output Total 3025 1250 Balance -1971 2 116.119 Intake: IV 74 77 Arterial Sheath pressure 24 27 bag ceFAZolin 1,000 mg In 50 50 Sodium Chloride 0.9% 50 ml @ 100 mls/hr IVPB Q8HR AALIYAH Rx#:[id number] Intake, IV Titration 650 875 116.119 Amount Propofol 1,000 mg In 100 200 116.119 Empty Bag 1 bag @ Titrate IV .Q0M AALIYAH Rx#: [id number] Sodium Chloride 0.9% 1, 550 675 000 ml @ 75 mls/hr IV . [id number] AALIYAH Rx#:[id number] Tube Feeding 270 240 Other 60 60 Output: Urine 3025 1250 Uretheral (Dubose) 400 Other: Voiding Method Indwelling Catheter Indwelling Catheter # Bowel Movements 1 Weight 109.1 kg ABP, PAP, CO, CI - Last 8 Hours Arterial Blood Pressure 130/56 Arterial Blood Pressure 135/59 Arterial Blood Pressure 136/57 Arterial Blood Pressure 106/49 Arterial Blood Pressure 122/52 Gen: Intubated, sedated neck: Supple Lungs: Anterior, even no increasd effort Heart: Irr Abdomen: Obese, Soft Extremities: BLE 1+ edema Skin: No rash noted Results CBC & Chem 7: 08/28/18 04:33 08/28/18 04:33 Labs: Abnormal Lab Results - Last 24 Hours (Table) 08/27/18 08/27/18 08/27/18 Range/Units 11:50 17:12 23:39 RBC (4.30-5.90) m/uL Hgb (13.0-17.5) gm/dL Hct (39.0-53.0) % Plt Count (150-450) k/uL Neutrophils # (1.3-7.7) k/uL Lymphocytes # (1.0-4.8) k/uL ABG pH (7.35-7.45) ABG pO2 (83-108) mmHg ABG HCO3 (21-25) mmol/L ABG Total CO2 (19-24) mmol/L ABG O2 Saturation (94-97) % Chloride (98-107) mmol/L Glucose (74-99) mg/dL POC Glucose (mg/dL) 206 H 200 H 239 H (75-99) mg/dL Calcium (8.4-10.2) mg/dL AST (17-59) U/L Alkaline Phosphatase (38-126) U/L Total Protein (6.3-8.2) g/dL Albumin (3.5-5.0) g/dL 08/28/18 08/28/18 08/28/18 Range/Units 04:33 04:33 04:35 RBC 3.76 L (4.30-5.90) m/uL Hgb 11.2 L (13.0-17.5) gm/dL Hct 35.2 L (39.0-53.0) % Plt Count 125 L (150-450) k/uL Neutrophils # 8.3 H (1.3-7.7) k/uL Lymphocytes # 0.8 L (1.0-4.8) k/uL ABG pH 7.50 H (7.35-7.45) ABG pO2 56 L* (83-108) mmHg ABG HCO3 28 H (21-25) mmol/L ABG Total CO2 29 H (19-24) mmol/L ABG O2 Saturation 90.6 L (94-97) % Chloride 109 H (98-107) mmol/L Glucose 235 H (74-99) mg/dL POC Glucose (mg/dL) (75-99) mg/dL Calcium 7.7 L (8.4-10.2) mg/dL AST 75 H (17-59) U/L Alkaline Phosphatase 132 H (38-126) U/L Total Protein 4.7 L (6.3-8.2) g/dL Albumin 2.4 L (3.5-5.0) g/dL 08/28/18 Range/Units 05:49 RBC (4.30-5.90) m/uL Hgb (13.0-17.5) gm/dL Hct (39.0-53.0) % Plt Count (150-450) k/uL Neutrophils # (1.3-7.7) k/uL Lymphocytes # (1.0-4.8) k/uL ABG pH (7.35-7.45) ABG pO2 (83-108) mmHg ABG HCO3 (21-25) mmol/L ABG Total CO2 (19-24) mmol/L ABG O2 Saturation (94-97) % Chloride (98-107) mmol/L Glucose (74-99) mg/dL POC Glucose (mg/dL) 244 H (75-99) mg/dL Calcium (8.4-10.2) mg/dL AST (17-59) U/L Alkaline Phosphatase (38-126) U/L Total Protein (6.3-8.2) g/dL Albumin (3.5-5.0) g/dL Microbiology - Last 24 Hours (Table) 08/25/18 10:54 Blood Culture - Preliminary Blood No Growth after 48 hours 08/25/18 09:15 Blood Culture - Preliminary Blood No Growth after 48 hours Assessment and Plan Plan: Assessment and Recs: Thrombocytopenia: - Likely reactive to Acute AK - Improving Daily - If s/s bleeding please call: Check DIC work-up - Will check coags Thank you for allowing us to participate in the care of your patient, will follow along.
--- NOTE | 2018-08-28 17:36 | P.PN ---
Subjective 78-year-old gentleman who is seen in the ICU. Patient is currently intubated. Patient initially is transferred from another facility on 08/21/2018. He was diagnosed with non-STEMI. He went for cardiac cath and underwent successful stenting of the distal right RCA and PDA branch of the coronary artery. He developed transient occlusion of the distal branches which were opened up. Patient went into complete heart block and received transfusion his pacemaker. Patient was brought to the incentive care unit. In the ICU he developed chest discomfort again hypertension and he was a came back to the tutorial laboratory supervisor. He received intra-aortic balloon pump and stenting of the saphenous vein graft to the obtuse marginal branch of the circumflex. He was at this time intubated and put on ventilator. Patient is still on ventilator. Sedated Objective - Vital Signs Vital signs: Vital Signs Temp 100.4 F H 08/28/18 16:00 Pulse 100 08/28/18 16:33 Resp 23 08/28/18 16:00 BP 109/62 08/28/18 06:00 Pulse Ox 93 L 08/28/18 16:00 Intake & Output 08/27/18 08/28/18 08/28/18 18:59 06:59 18:59 Intake Total 2057.437 1744 987.091 Output Total 5475 1975 1550 Balance -3417.563 -231 -562.909 Weight 109.1 kg Intake: IV 511 89 227 Arterial Sheath pressure 36 39 27 bag Sodium Chloride 0.9% 1, 375 000 ml @ 125 mls/hr IV . Q8H AALIYAH Rx#:[id number] ceFAZolin 1,000 mg In 100 50 200 Sodium Chloride 0.9% 50 ml @ 100 mls/hr IVPB Q8HR AALIYAH Rx#:[id number] Intake, IV Titration 0676.125 9604 280.091 Amount DOPamine DRIP 800 mg In 163.972 Dextrose/Water 1 250ml. bag @ 10 MCG/KG/MIN 17. 813 mls/hr IV .Q14H3M AALIYAH Rx#:[id number] Propofol 1,000 mg In 391.437 200 116.119 Empty Bag 1 bag @ Titrate IV .Q0M AALIYAH Rx#: [id number] Sodium Chloride 0.9% 1, 625 975 000 ml @ 75 mls/hr IV . [id number] AALIYAH Rx#:[id number] Tube Feeding 390 390 390 Other 140 90 90 Output: Urine 5475 1975 1550 Uretheral (Dubose) 850 Other: Voiding Method Indwelling Catheter Indwelling Catheter Indwelling Catheter # Bowel Movements 1 1 ABP, PAP, CO, CI - Last Documented Arterial Blood Pressure 138/69 - Exam On exam, patient intubated and sedated HEENT: Conjunctivae normal. eyes normal. NECK: No JVD. No thyroid enlargement. No LNs CARDIOVASCULAR: S1-S2 positive RESPIRATION: Breath sounds diminished in the bases. No rhonchi or crackles. No bronchial breathing. ABDOMEN: Soft, nontender . No guarding. no masses palpable. No ascites, No he patosplenomegaly.Bowel sounds heard. LEGS: No edema. no swelling NERVOUS SYSTEM: neurological examination was not possible as the patient is intubated and sedated Skin: no ulcer no rash - Labs CBC & Chem 7: 08/28/18 04:33 08/28/18 04:33 Labs: Abnormal Lab Results - Last 24 Hours (Table) 08/27/18 08/28/18 08/28/18 Range/Units 23:39 04:33 04:33 RBC 3.76 L (4.30-5.90) m/uL Hgb 11.2 L (13.0-17.5) gm/dL Hct 35.2 L (39.0-53.0) % Plt Count 125 L (150-450) k/uL Neutrophils # 8.3 H (1.3-7.7) k/uL Lymphocytes # 0.8 L (1.0-4.8) k/uL ABG pH (7.35-7.45) ABG pO2 (83-108) mmHg ABG HCO3 (21-25) mmol/L ABG Total CO2 (19-24) mmol/L ABG O2 Saturation (94-97) % Chloride 109 H (98-107) mmol/L Glucose 235 H (74-99) mg/dL POC Glucose (mg/dL) 239 H (75-99) mg/dL Calcium 7.7 L (8.4-10.2) mg/dL AST 75 H (17-59) U/L Alkaline Phosphatase 132 H (38-126) U/L Total Protein 4.7 L (6.3-8.2) g/dL Albumin 2.4 L (3.5-5.0) g/dL 08/28/18 08/28/18 08/28/18 Range/Units 04:35 05:49 11:52 RBC (4.30-5.90) m/uL Hgb (13.0-17.5) gm/dL Hct (39.0-53.0) % Plt Count (150-450) k/uL Neutrophils # (1.3-7.7) k/uL Lymphocytes # (1.0-4.8) k/uL ABG pH 7.50 H (7.35-7.45) ABG pO2 56 L* (83-108) mmHg ABG HCO3 28 H (21-25) mmol/L ABG Total CO2 29 H (19-24) mmol/L ABG O2 Saturation 90.6 L (94-97) % Chloride (98-107) mmol/L Glucose (74-99) mg/dL POC Glucose (mg/dL) 244 H 290 H (75-99) mg/dL Calcium (8.4-10.2) mg/dL AST (17-59) U/L Alkaline Phosphatase (38-126) U/L Total Protein (6.3-8.2) g/dL Albumin (3.5-5.0) g/dL 08/28/18 Range/Units 15:32 RBC (4.30-5.90) m/uL Hgb (13.0-17.5) gm/dL Hct (39.0-53.0) % Plt Count (150-450) k/uL Neutrophils # (1.3-7.7) k/uL Lymphocytes # (1.0-4.8) k/uL ABG pH (7.35-7.45) ABG pO2 (83-108) mmHg ABG HCO3 (21-25) mmol/L ABG Total CO2 (19-24) mmol/L ABG O2 Saturation (94-97) % Chloride (98-107) mmol/L Glucose (74-99) mg/dL POC Glucose (mg/dL) 279 H (75-99) mg/dL Calcium (8.4-10.2) mg/dL AST (17-59) U/L Alkaline Phosphatase (38-126) U/L Total Protein (6.3-8.2) g/dL Albumin (3.5-5.0) g/dL Microbiology - Last 24 Hours (Table) 08/25/18 10:54 Blood Culture - Preliminary Blood No Growth after 72 hours 08/25/18 09:15 Blood Culture - Preliminary Blood No Growth after 72 hours Assessment and Plan Assessment: - acute respiratory failure requiring intubation - non-STEMI - Cardiogenic shock requiring balloon pump support which has been removed - Complete heart block requiring temporary venous pacemaker - Diabetes - Hyperlipidemia - Acute renal failure - NE - hypertension Plan - Continue ice and management as per stair builder - Cardiology on board, patient recommendations - on Lasix - We'll monitor the labs - DVT and GI prophylaxis - We'll follow up on the patient Time with Patient: Greater than 30
--- NOTE | 2018-08-28 17:45 | P.PN ---
Subjective Progress Note Date: 08/28/18 There is evaluation of 08/28/2018 I'm seeing this patient for a follow-up. This patient is known to have coronary artery disease and the patient came an acute non-STEMI and the patient underwent a emergent stenting of the RCA and subsequently had to be taken back to the Transportation Agent where the patient underwent stenting of the PDA branch of the RCA and PCI and stenting of the saphenous vein graft to up to is marginal. The patient's course was complicated by cardiogenic shock from which the patient recovered and intra-aortic balloon pump was removed. He also developed acute kidney injury from which she recovered. The patient is known to have diabetes mellitus type 2, prostate cancer, chronic back pain, hyperlipidemia, hypertension and previous history of dementia. The patient remains intubated on a mechanical ventilator. This morning the patient and assist control mode of ventilation with a rate of 16 with a tidal volume of 450-50% with a PEEP of 16. Note That Earlier This Morning Showed a pH of 7.50 with a PCO2 of 36 and PO2 of 56. The Chest X-Ray from Today from Today Showing Adequate Positioning of the ET Tube. No Evidence of Any Pneumothorax. There is bibasilar pulmonary infiltrates seen. The patient's CVP was around 10. I started him on Lasix if he was started on Lasix 40 mg IV every 8 hours. Meanwhile, the patient's rhythm was slightly tachycardic today. EKG was done a nd the patient was found to have right bundle branch block pattern within a A. fib rhythm. The patient is currently on dopamine at 3 g per KG per minute. His renal function is improved. He is afebrile. He is tolerating his tube feeds which is at goal with vital high protein at the rate of 30 mL an hour. He is producing adequate amount of urine output. The patient is afebrile. The patient is maintaining a normal renal function at creatinine of 0.8. The acute kidney injury is improved. No significant leukocytosis. No other significant events overnight otherwise for now. Objective - Vital Signs Vital signs: Vital Signs Temp 100.4 F H 08/28/18 16:00 Pulse 100 08/28/18 16:33 Resp 23 08/28/18 16:00 BP 109/62 08/28/18 06:00 Pulse Ox 93 L 08/28/18 16:00 Intake & Output 08/27/18 08/28/18 08/28/18 18:59 06:59 18:59 Intake Total 2057.437 1744 987.091 Output Total 5475 1975 1550 Balance -3417.563 -231 -562.909 Weight 109.1 kg Intake: IV 511 89 227 Arterial Sheath pressure 36 39 27 bag Sodium Chloride 0.9% 1, 375 000 ml @ 125 mls/hr IV . Q8H [facility] Rx#:[id number] ceFAZolin 1,000 mg In 100 50 200 Sodium Chloride 0.9% 50 ml @ 100 mls/hr IVPB Q8HR [facility] Rx#:[id number] Intake, IV Titration 0105.894 2392 280.091 Amount DOPamine DRIP 800 mg In 163.972 Dextrose/Water 1 250ml. bag @ 10 MCG/KG/MIN 17. 813 mls/hr IV .Q14H3M [facility]ALIYAH Rx#:[id number] Propofol 1,000 mg In 391.437 200 116.119 Empty Bag 1 bag @ Titrate IV .Q0M AALIYAH Rx#: [id number] Sodium Chloride 0.9% 1, 625 975 000 ml @ 75 mls/hr IV . [id number] [facility]ALIY[facility] Rx#:[id number] Tube Feeding 390 390 390 Other 140 90 90 Output: Urine 5475 1975 1550 Uretheral (Dubose) 850 Other: Voiding Method Indwelling Catheter Indwelling Catheter Indwelling Catheter # Bowel Movements 1 1 ABP, PAP, CO, CI - Last Documented Arterial Blood Pressure 138/69 - Exam GENERAL EXAM: Sedated, intubated, obese, 78-year-old white male comfortable in no apparent distress. The patient is well sedated and calm and comfortable likely distress. HEAD: Normocephalic/atraumatic. EYES: Normal reaction of pupils, equal size. Conjunctiva pink, sclera white. NOSE: Clear with pink turbinates. THROAT: No erythema or exudates. NECK: No masses, no JVD, no thyroid enlargement, no adenopathy. CHEST: No chest wall deformity. Symmetrical expansion. LUNGS: Equal air entry with no crackles, wheeze, rhonchi or dullness. CVS: Regular rate and rhythm, normal S1 and S2, no gallops, no murmurs, no rubs ABDOMEN: Soft, nontender. No hepatosplenomegaly, normal bowel sounds, no guarding or rigidity. EXTREMITIES: No clubbing, no edema, no cyanosis, 2+ pulses and upper and lower extremities. Right groin TVP, interval removal of intra-aortic balloon pump MUSCULOSKELETAL: Muscle strength and tone normal. SPINE: No scoliosis or deformity SKIN: No rashes CENTRAL NERVOUS SYSTEM: Sedated. No focal deficits, tone is normal in all 4 extremities. PSYCHIATRIC: Sedated. - Labs CBC & Chem 7: 08/28/18 04:33 08/28/18 04:33 Labs: Abnormal Lab Results - Last 24 Hours (Table) 08/27/18 08/28/18 08/28/18 Range/Units 23:39 04:33 04:33 RBC 3.76 L (4.30-5.90) m/uL Hgb 11.2 L (13.0-17.5) gm/dL Hct 35.2 L (39.0-53.0) % Plt Count 125 L (150-450) k/uL Neutrophils # 8.3 H (1.3-7.7) k/uL Lymphocytes # 0.8 L (1.0-4.8) k/uL ABG pH (7.35-7.45) ABG pO2 (83-108) mmHg ABG HCO3 (21-25) mmol/L ABG Total CO2 (19-24) mmol/L ABG O2 Saturation (94-97) % Chloride 109 H (98-107) mmol/L Glucose 235 H (74-99) mg/dL POC Glucose (mg/dL) 239 H (75-99) mg/dL Calcium 7.7 L (8.4-10.2) mg/dL AST 75 H (17-59) U/L Alkaline Phosphatase 132 H (38-126) U/L Total Protein 4.7 L (6.3-8.2) g/dL Albumin 2.4 L (3.5-5.0) g/dL 08/28/18 08/28/18 08/28/18 Range/Units 04:35 05:49 11:52 RBC (4.30-5.90) m/uL Hgb (13.0-17.5) gm/dL Hct (39.0-53.0) % Plt Count (150-450) k/uL Neutrophils # (1.3-7.7) k/uL Lymphocytes # (1.0-4.8) k/uL ABG pH 7.50 H (7.35-7.45) ABG pO2 56 L* (83-108) mmHg ABG HCO3 28 H (21-25) mmol/L ABG Total CO2 29 H (19-24) mmol/L ABG O2 Saturation 90.6 L (94-97) % Chloride (98-107) mmol/L Glucose (74-99) mg/dL POC Glucose (mg/dL) 244 H 290 H (75-99) mg/dL Calcium (8.4-10.2) mg/dL AST (17-59) U/L Alkaline Phosphatase (38-126) U/L Total Protein (6.3-8.2) g/dL Albumin (3.5-5.0) g/dL 08/28/18 Range/Units 15:32 RBC (4.30-5.90) m/uL Hgb (13.0-17.5) gm/dL Hct (39.0-53.0) % Plt Count (150-450) k/uL Neutrophils # (1.3-7.7) k/uL Lymphocytes # (1.0-4.8) k/uL ABG pH (7.35-7.45) ABG pO2 (83-108) mmHg ABG HCO3 (21-25) mmol/L ABG Total CO2 (19-24) mmol/L ABG O2 Saturation (94-97) % Chloride (98-107) mmol/L Glucose (74-99) mg/dL POC Glucose (mg/dL) 279 H (75-99) mg/dL Calcium (8.4-10.2) mg/dL AST (17-59) U/L Alkaline Phosphatase (38-126) U/L Total Protein (6.3-8.2) g/dL Albumin (3.5-5.0) g/dL Microbiology - Last 24 Hours (Table) 08/25/18 10:54 Blood Culture - Preliminary Blood No Growth after 72 hours 08/25/18 09:15 Blood Culture - Preliminary Blood No Growth after 72 hours Assessment and Plan Plan: #1 Acute non-ST segment elevation myocardial infarction status post stenting to the distal right coronary artery and stenting of the PDA branch of the right coronary artery with transient bradycardia requiring insertion of transvenous temporary pacemaker. He subsequently developed recurrent chest pain cardiogenic shock and was taken back to the CVL and received stenting to the saphenous vein graft to the obtuse marginal branch of the circumflex. Insertion of intra- aortic balloon pump. Reposition of the TVP. Intubated and on mechanical ventilation. She remains on 3 mics of dopamine per sandblast or shotblast equipment tender recommendation. The renal function is improved and normalized. The patient is maintaining his own blood pressure. CVP is around 10 the patient is started on diuretics for now. #2 Cardiogenic shock secondary to above, recovering, and the patient is m aintained a mics of dopamine for now. #3 Previous history of coronary artery disease with coronary artery bypass grafting utilizing the GAVIRIA to the LAD, saphenous vein grafts to the diagonal and OM back in 2008. #4 acute hypoxic respiratory failure with a chest x-ray done today consistent with edema/fluid overload. The patient will be started on diuretics. #5 Dementia. #6 Prostate cancer. #7 Previous history of pneumonia/sepsis. #8 Chronic back pain. #9 History of renal colic. #10 Hyperlipidemia. #11 Hypertension. #12 acute kidney injury, recovered #13 dementia #14 right bundle branch block pattern along with a A. fib rhythm earlier this morning on a monitor and 12-lead EKG. Plan: Continue the vent support. Start the patient on IV Lasix 40 mg every 8 hours. Monitor the cardiac rhythm. Repeat the blood gas. Monitor CVP. QRS of the treatment. Condition is critical. Discussed the case with the family. We'll continue to follow. This critically care evaluation was done and more than 30 minutes. Time with Patient: Greater than 30
[2018-08-28] MEDS: NOREPINEPHRINE 32 MG in SODIUM CHLORIDE 0.9% 218 ML IV SCH (18:39)
[2018-08-28 20:00] LABS: ABG Base Excess 7.7 mmol/L; ABG HCO3 30 mmol/L (21-25); ABG Oxygen Saturation 94.5 % (94-97); ABG PCO2 35 mmHg (35-45); ABG PH 7.54 (7.35-7.45); ABG PO2 67 mmHg (83-108); ABG TCO2 31 mmol/L (19-24); Allen Test Performed? Yes
[2018-08-28 20:03] LABS: Glucose,Whole Blood 258 mg/dL (75-99)
[2018-08-28 21:19] LABS: Glucose,Whole Blood 248 mg/dL (75-99)
[2018-08-28 23:53] LABS: Glucose,Whole Blood 243 mg/dL (75-99)
[2018-08-29] MEDS: INSULIN ASPART (NovoLOG) 100 UNIT/ML VIAL SQ SCH ×6 (00:29→20:26)
[2018-08-29] MEDS: FUROSEMIDE 10 MG/ML 4 ML VIAL IV SCH ×3 (00:30→15:46)
[2018-08-29] MEDS: HEPARIN SODIUM,PORCINE 5,000 UNIT/ML 1 ML VIAL SQ SCH ×3 (00:30→15:46)
[2018-08-29] MEDS: DOPamine DRIP 800 MG in DEXTROSE/WATER 1 250ML.BAG IV SCH (00:31)
[2018-08-29] MEDS: SODIUM CHLORIDE 0.9% 1,000 ML IV SCH (00:42)
[2018-08-29] MEDS: IPRATROPIUM-ALBUTEROL 3 ML NEB INHALATION SCH ×5 (03:49→21:00)
[2018-08-29 03:57] LABS: Glucose,Whole Blood 171 mg/dL (75-99)
[2018-08-29 04:37] LABS: ABG Base Excess 10.3 mmol/L; ABG HCO3 33 mmol/L (21-25); ABG Oxygen Saturation 96.2 % (94-97); ABG PCO2 38 mmHg (35-45); ABG PH 7.54 (7.35-7.45); ABG PO2 80 mmHg (83-108); ABG TCO2 34 mmol/L (19-24)
[2018-08-29 05:42] LABS: Basophils % (A) 0 %; Eosinophils # (A) 0.1 k/uL (0-0.7); Eosinophils % (A) 1 %; HGB 11.3 gm/dL (13.0-17.5); Lymphocytes # (A) 1.1 k/uL (1.0-4.8); Lymphocytes % (A) 10 %; MCH 30.1 pg (25.0-35.0); MCHC 32.5 g/dL (31.0-37.0); MCV 92.8 fL (80.0-100.0); Mean Platelet Volume 10.1; Monocytes # (A) 0.6 k/uL (0-1.0); Monocytes % (A) 6 %; Neutrophils # (A) 8.6 k/uL (1.3-7.7); Neutrophils % (A) 80 %; Platelet Count 155 k/uL (150-450); RBC 3.77 m/uL (4.30-5.90); RDW 15.2 % (11.5-15.5); WBC 10.7 k/uL (3.8-10.6)
[2018-08-29 05:54] LABS: ALT 56 U/L (21-72); AST 77 U/L (17-59); African American GFR (CKD) >90 (>60 ml/min/1.73 sqM); Albumin 2.5 g/dL (3.5-5.0); Alkaline Phosphatase 127 U/L (38-126); Anion Gap 6 mmol/L; Blood Urea Nitrogen 20 mg/dL (9-20); Calcium 7.7 mg/dL (8.4-10.2); Carbon Dioxide 32 mmol/L (22-30); Chloride 104 mmol/L (98-107); Glucose 192 mg/dL (74-99); Sodium 142 mmol/L (137-145); Total Bilirubin 0.4 mg/dL (0.2-1.3); Total Protein 4.9 g/dL (6.3-8.2)
[2018-08-29 05:58] LABS: INR 0.9 (<1.2); Partial Thromboplastin Time 26.5 sec (22.0-30.0); Prothrombin Time 9.6 sec (9.0-12.0)
[2018-08-29] MEDS: POTASSIUM BICARBONATE/CIT AC 20 MEQ TABLET.EFF NG-TUBE SCH ×6 (06:15→21:00)
--- NOTE | 2018-08-29 07:59 | XR ---
EXAMINATION TYPE: XR chest 1V DATE OF EXAM: 08/29/2018 COMPARISON: Prior chest x-ray 08/28/2018 HISTORY: Intubated TECHNIQUE: Single frontal view of the chest is obtained. FINDINGS: Endotracheal tube, left jugular central venous catheter, orogastric tube are overlying maki ropriate positions. No evident pneumothorax. Bibasilar increased density persists. Heart is stable. P atient is post median sternotomy. IMPRESSION: Findings are similar to prior exam. There are bibasilar effusions and associated atelect asis, correlate for edema, pneumonia.
[2018-08-29 08:37] LABS: Glucose,Whole Blood 162 mg/dL (75-99)
[2018-08-29] MEDS: INSULIN DETEMIR (LEVEMIR) 100 UNIT/ML SYR SQ SCH (08:48)
[2018-08-29] MEDS: ATORVASTATIN 40 MG TAB PO SCH (08:50)
[2018-08-29] MEDS: CLOPIDOGREL 75 MG TAB PO SCH (08:50)
[2018-08-29] MEDS: CHLORHEXIDINE GLUCONATE 15 ML CUP MUCOUS MEM SCH ×2 (08:50→21:00)
[2018-08-29] MEDS: ASPIRIN 81 MG PO SCH (08:50)
[2018-08-29] MEDS: amLODIPine 5 MG TAB PO SCH ×2 (08:53→21:00)
[2018-08-29] MEDS: PREVAGEN PO SCH (08:59)
[2018-08-29] MEDS: PANTOPRAZOLE 40 MG/10 ML VIAL IVP SCH (09:06)
[2018-08-29] MEDS: MULTIVITAMINS, THERA 1 EACH TAB PO SCH (09:06)
[2018-08-29] MEDS ORDERED: ATROPINE SULFATE 0.1 MG/ML 10ML SYRINGE ONE (09:19)
[2018-08-29 11:48] LABS: ABG Base Excess 12.4 mmol/L; ABG HCO3 35 mmol/L (21-25); ABG Oxygen Saturation 96.8 % (94-97); ABG PCO2 42 mmHg (35-45); ABG PH 7.53 (7.35-7.45); ABG PO2 90 mmHg (83-108); ABG TCO2 36 mmol/L (19-24); Allen Test Performed? Yes
[2018-08-29 11:59] LABS: ABG PO2 56 mmHg (83-108)
[2018-08-29 12:36] LABS: Glucose,Whole Blood 169 mg/dL (75-99)
[2018-08-29] MEDS: PROPOFOL 1,000 MG in EMPTY BAG 1 BAG IV SCH (12:56)
--- NOTE | 2018-08-29 14:41 | P.PN ---
Subjective Progress Note Date: 08/29/18 There is evaluation of 08/28/2018 I'm seeing this patient for a follow-up. This patient is known to have coronary artery disease and the patient came an acute non-STEMI and the patient underwent a emergent stenting of the RCA and subsequently had to be taken back to the [facility] where the patient underwent stenting of the PDA branch of the RCA and PCI and stenting of the saphenous vein graft to up to is marginal. The patient's course was complicated by cardiogenic shock from which the patient recovered and intra-aortic balloon pump was removed. He also developed acute kidney injury from which she recovered. The patient is known to have diabetes mellitus type 2, prostate cancer, chronic back pain, hyperlipidemia, hypertension and previous history of dementia. The patient remains intubated on a mechanical ventilator. This morning the patient and assist control mode of ventilation with a rate of 16 with a tidal volume of 450-50% with a PEEP of 16. Note That Earlier This Morning Showed a pH of 7.50 with a PCO2 of 36 and PO2 of 56. The Chest X-Ray from Today from Today Showing Adequate Positioning of the ET Tube. No Evidence of Any Pneumothorax. There is bibasilar pulmonary infiltrates seen. The patient's CVP was around 10. I started him on Lasix if he was started on Lasix 40 mg IV every 8 hours. Meanwhile, the patient's rhythm was slightly tachycardic today. EKG was done a nd the patient was found to have right bundle branch block pattern within a A. fib rhythm. The patient is currently on dopamine at 3 g per KG per minute. His renal function is improved. He is afebrile. He is tolerating his tube feeds which is at goal with vital high protein at the rate of 30 mL an hour. He is producing adequate amount of urine output. The patient is afebrile. The patient is maintaining a normal renal function at creatinine of 0.8. The acute kidney injury is improved. No significant leukocytosis. No other significant events overnight otherwise for now. On 08/29/2018, the patient remains sedated and abated on a mechanical ventilator. Vent settings with a tidal volume of 450 with a PEEP of 16 FiO2 of 50% and a rate of 16. Chest x-ray shows no significant change. The patient was started on diuretics yesterday with Lasix 40 mg IV push every 8 hours and the patient is a negative fluid balance. Pulse ox on the monitor his in the order of 97% and based on that the patient was dropped down to 14 of PEEP and later on down to 12 of PEEP maintaining a saturation above 90%. IV fluids have been cut to KVO. The patient is a negative fluid balance. The patient is in a first- degree AV block with a RBBB pattern and the dopamine drip has been discontinued. Blood pressure has picked up nicely. The patient is receiving enteral feeding for nutritional support. No fever. No chills no leukocytosis. Blood gases from today showed a pH of 7.53 with a pCO2 of 42 and pO2 of 90 and this was done on above-mentioned vent setting. The patient has a stable white count of 10.7. Hemoglobin is at 11.3. No other significant events over the past 24 hours. Creatinine is also stable at 0.8. Objective - Vital Signs Vital signs: Vital Signs Temp 98.2 F 08/29/18 12:00 Pulse 82 08/29/18 13:00 Resp 16 08/29/18 13:00 BP 132/74 08/29/18 13:00 Pulse Ox 98 08/29/18 13:00 Intake & Output 08/28/18 08/29/18 08/29/18 18:59 06:59 18:59 Intake Total 992.295 3774 418.083 Output Total 1805 2375 1180 Balance -814.909 -790 -761.917 Weight 106.4 kg 106.4 kg Intake: IV 230 175 36 Arterial Sheath pressure 30 75 36 bag ceFAZolin 1,000 mg In 200 100 Sodium Chloride 0.9% 50 ml @ 100 mls/hr IVPB Q8HR AALI[facility] Rx#:[id number] Intake, IV Titration 280.091 900 22.083 Amount DOPamine DRIP 800 mg In 163.972 Dextrose/Water 1 250ml. bag @ 10 MCG/KG/MIN 17. 813 mls/hr IV .Q14H3M AALIYAH Rx#:[id number] Propofol 1,000 mg In 116.119 22.083 Empty Bag 1 bag @ Titrate IV .Q0M AALIYAH Rx#: [id number] Sodium Chloride 0.9% 1, 900 000 ml @ 75 mls/hr IV . [id number] AALIYAH Rx#:[id number] Tube Feeding 390 420 300 Other 90 90 60 Output: Urine 1805 2375 1180 Other: Voiding Method Indwelling Catheter Indwelling Catheter Indwelling Catheter # Bowel Movements 1 ABP, PAP, CO, CI - Last Documented Arterial Blood Pressure 177/81 - Exam GENERAL EXAM: Sedated, intubated, obese, 78-year-old white male comfortable in no apparent distress. The patient is well sedated and calm and comfortable likely distress. HEAD: Normocephalic/atraumatic. EYES: Normal reaction of pupils, equal size. Conjunctiva pink, sclera white. NOSE: Clear with pink turbinates. THROAT: No erythema or exudates. NECK: No masses, no JVD, no thyroid enlargement, no adenopathy. CHEST: No chest wall deformity. Symmetrical expansion. LUNGS: Equal air entry with no crackles, wheeze, rhonchi or dullness. CVS: Regular rate and rhythm, normal S1 and S2, no gallops, no murmurs, no rubs ABDOMEN: Soft, nontender. No hepatosplenomegaly, normal bowel sounds, no guarding or rigidity. EXTREMITIES: No clubbing, no edema, no cyanosis, 2+ pulses and upper and lower extremities. Right groin TVP, interval removal of intra-aortic balloon pump MUSCULOSKELETAL: Muscle strength and tone normal. SPINE: No scoliosis or deformity SKIN: No rashes CENTRAL NERVOUS SYSTEM: Sedated. No focal deficits, tone is normal in all 4 extremities. PSYCHIATRIC: Sedated. - Labs CBC & Chem 7: 08/29/18 04:28 08/29/18 11:00 Labs: Abnormal Lab Results - Last 24 Hours (Table) 08/28/18 08/28/18 08/28/18 Range/Units 04:35 15:32 19:58 WBC (3.8-10.6) k/uL RBC (4.30-5.90) m/uL Hgb (13.0-17.5) gm/dL Hct (39.0-53.0) % Neutrophils # (1.3-7.7) k/uL ABG pH 7.54 H (7.35-7.45) ABG pO2 56 L* 67 L (83-108) mmHg ABG HCO3 30 H (21-25) mmol/L ABG Total CO2 31 H (19-24) mmol/L Potassium (3.5-5.1) mmol/L Carbon Dioxide (22-30) mmol/L Glucose (74-99) mg/dL POC Glucose (mg/dL) 279 H (75-99) mg/dL Calcium (8.4-10.2) mg/dL AST (17-59) U/L Alkaline Phosphatase (38-126) U/L Total Protein (6.3-8.2) g/dL Albumin (3.5-5.0) g/dL 08/28/18 08/28/18 08/28/18 Range/Units 19:59 21:13 23:51 WBC (3.8-10.6) k/uL RBC (4.30-5.90) m/uL Hgb (13.0-17.5) gm/dL Hct (39.0-53.0) % Neutrophils # (1.3-7.7) k/uL ABG pH (7.35-7.45) ABG pO2 (83-108) mmHg ABG HCO3 (21-25) mmol/L ABG Total CO2 (19-24) mmol/L Potassium (3.5-5.1) mmol/L Carbon Dioxide (22-30) mmol/L Glucose (74-99) mg/dL POC Glucose (mg/dL) 258 H 248 H 243 H (75-99) mg/dL Calcium (8.4-10.2) mg/dL AST (17-59) U/L Alkaline Phosphatase (38-126) U/L Total Protein (6.3-8.2) g/dL Albumin (3.5-5.0) g/dL 08/29/18 08/29/18 08/29/18 Range/Units 03:55 04:28 04:28 WBC 10.7 H (3.8-10.6) k/uL RBC 3.77 L (4.30-5.90) m/uL Hgb 11.3 L (13.0-17.5) gm/dL Hct 35.0 L (39.0-53.0) % Neutrophils # 8.6 H (1.3-7.7) k/uL ABG pH (7.35-7.45) ABG pO2 (83-108) mmHg ABG HCO3 (21-25) mmol/L ABG Total CO2 (19-24) mmol/L Potassium 3.0 L (3.5-5.1) mmol/L Carbon Dioxide 32 H (22-30) mmol/L Glucose 192 H (74-99) mg/dL POC Glucose (mg/dL) 171 H (75-99) mg/dL Calcium 7.7 L (8.4-10.2) mg/dL AST 77 H (17-59) U/L Alkaline Phosphatase 127 H (38-126) U/L Total Protein 4.9 L (6.3-8.2) g/dL Albumin 2.5 L (3.5-5.0) g/dL 08/29/18 08/29/18 08/29/18 Range/Units 04:32 08:33 11:00 WBC (3.8-10.6) k/uL RBC (4.30-5.90) m/uL Hgb (13.0-17.5) gm/dL Hct (39.0-53.0) % Neutrophils # (1.3-7.7) k/uL ABG pH 7.54 H (7.35-7.45) ABG pO2 80 L (83-108) mmHg ABG HCO3 33 H (21-25) mmol/L ABG Total CO2 34 H (19-24) mmol/L Potassium 3.3 L (3.5-5.1) mmol/L Carbon Dioxide (22-30) mmol/L Glucose (74-99) mg/dL POC Glucose (mg/dL) 162 H (75-99) mg/dL Calcium (8.4-10.2) mg/dL AST (17-59) U/L Alkaline Phosphatase (38-126) U/L Total Protein (6.3-8.2) g/dL Albumin (3.5-5.0) g/dL 08/29/18 08/29/18 Range/Units 11:43 12:35 WBC (3.8-10.6) k/uL RBC (4.30-5.90) m/uL Hgb (13.0-17.5) gm/dL Hct (39.0-53.0) % Neutrophils # (1.3-7.7) k/uL ABG pH 7.53 H (7.35-7.45) ABG pO2 (83-108) mmHg ABG HCO3 35 H (21-25) mmol/L ABG Total CO2 36 H (19-24) mmol/L Potassium (3.5-5.1) mmol/L Carbon Dioxide (22-30) mmol/L Glucose (74-99) mg/dL POC Glucose (mg/dL) 169 H (75-99) mg/dL Calcium (8.4-10.2) mg/dL AST (17-59) U/L Alkaline Phosphatase (38-126) U/L Total Protein (6.3-8.2) g/dL Albumin (3.5-5.0) g/dL Microbiology - Last 24 Hours (Table) 08/25/18 10:54 Blood Culture - Preliminary Blood No Growth after 96 hours 08/25/18 09:15 Blood Culture - Preliminary Blood No Growth after 96 hours Assessment and Plan Plan: #1 Acute non-ST segment elevation myocardial infarction status post stenting to the distal right coronary artery and stenting of the PDA branch of the right coronary artery with transient bradycardia requiring insertion of transvenous temporary pacemaker. He subsequently developed recurrent chest pain cardiogenic shock and was taken back to the [facility] and received stenting to the saphenous vein graft to the obtuse marginal branch of the circumflex. Insertion of intra- aortic balloon pump. Reposition of the TVP. Intubated and on mechanical ventilation. She remains on 3 mics of dopamine per oil field tester recommendation. The renal function is improved and normalized. The patient is maintaining his own blood pressure. CVP is around 10 the patient is started on diuretics for now. On today's evaluation of 08/29/2018, the patient remains intubated on a mechanical ventilator. Nevertheless, the patient is currently off dopamine. The patient is diuresing very nicely with IV Lasix and the patient is maintaining a negative fluid balance. Hemodynamically stable at this point in time. Should be able to cut down the PEEP gradually to maintain a saturation above 90%. #2 Cardiogenic shock secondary to above, recovering, and the patient is maintained a mics of dopamine for now. #3 Previous history of coronary artery disease with coronary artery bypass grafting utilizing the GAVIRIA to the LAD, saphenous vein grafts to the diagonal and OM back in 2008. #4 acute hypoxic respiratory failure with a chest x-ray done today consistent with edema/fluid overload. The patient will be started on diuretics. Oxidation is somewhat improved compared to yesterday. Blood gases was noted. Chest x-ray was noted. The patient is diuresing and the patient is a negative fluid balance in the PEEP will be cut down to 12. #5 Dementia. #6 Prostate cancer. #7 Previous history of pneumonia/sepsis. #8 Chronic back pain. #9 History of renal colic. #10 Hyperlipidemia. #11 Hypertension. #12 acute kidney injury, recovered #13 dementia #14 right bundle branch block pattern along with a first-degree AV block. The patient had short run of atrial fibrillation yesterday Plan: Continue the vent support. Start the patient on IV Lasix 40 mg every 8 hours. Monitor the cardiac rhythm. Repeat the blood gas. Monitor CVP. Obtain a CAT scan of the chest chest to characterized the pulmonary abnormalities and understand his ongoing difficulties in oxygenation. Cut down the PEEP gradually down to 14 and later on down to 12. The patient sedated for now. Continue enteral feeding for nutritional support. Check a pro-calcitonin level. We'll continue to follow. His condition is critical we'll make further recommendations based on his overall progress. Monitor the electrolytes. Replace hypokalemia. Watch for any signs of metabolic alkalosis special that the patient is being aggressively diuresed we will continue to follow. Is a critically care evaluation was on a more than 30 minutes. Time with Patient: Greater than 30
--- NOTE | 2018-08-29 15:30 | PN ---
PROGRESS NOTE Patient is seen for followup for acute kidney injury. His renal function has improved significantly. Creatinine staying at 0.8 mg/dL. The patient is maintained on Lasix q.8 hours. He has had good urine output. The patient remains on the vent. PHYSICAL EXAMINATION: Today, blood pressure was 177/81, heart rate of 82 per minute. He is afebrile. Examination of the heart, S1, S2. Examination of the lungs, bilateral breath sounds are heard. Abdomen is soft, nontender. Examination of the lower extremities shows edema 1+ bilaterally. LABS: Show sodium 142, potassium 3.0, chloride 104, BUN 22, serum creatinine 0.84. ASSESSMENT: 1. Acute kidney injury, acute tubular necrosis currently resolved. 2. Hypokalemia secondary to diuretics, being replaced. 3. Volume overload maintained on IV Lasix which we can continue. 4. Status post acute [id number] status post stenting of distal right coronary artery and PDA branch of right coronary artery. 5. Bradycardia, status post myocardial infraction, currently improved. The patient was on dopamine which is now discontinued. PLAN: Replace potassium. We will sign off. Please do not hesitate to call for any questions. MMODL / IJN: [id number] /
--- NOTE | 2018-08-29 15:32 | P.PN ---
Subjective 78-year-old gentleman who is seen in the ICU. Patient is currently intubated. Patient initially is transferred from another facility on 08/21/2018. He was diagnosed with non-STEMI. He went for cardiac cath and underwent successful stenting of the distal right RCA and PDA branch of the coronary artery. He developed transient occlusion of the distal branches which were opened up. Patient went into complete heart block and received transfusion his pacemaker. Patient was brought to the incentive care unit. 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 He received intra-aortic balloon pump and stenting of the saphenous vein graft to the obtuse marginal branch of the circumflex. He was at this time intubated and put on ventilator. Patient is still on ventilator. Sedated On 08/29/2018 Patient intubated and sedated Weaning trial Objective - Vital Signs Vital signs: Vital Signs Temp 98.2 F 08/29/18 12:00 Pulse 77 08/29/18 14:00 Resp 17 08/29/18 14:00 BP 132/74 08/29/18 13:00 Pulse Ox 98 08/29/18 14:00 Intake & Output 08/28/18 08/29/18 08/29/18 18:59 06:59 18:59 Intake Total 985.996 0135 490.083 Output Total 1805 2375 1430 Balance -814.909 -790 -939.917 Weight 106.4 kg 106.4 kg Intake: IV 230 175 48 Arterial Sheath pressure 30 75 48 bag ceFAZolin 1,000 mg In 200 100 Sodium Chloride 0.9% 50 ml @ 100 mls/hr IVPB Q8HR [facility] Rx#:[id number] Intake, IV Titration 280.091 900 22.083 Amount DOPamine DRIP 800 mg In 163.972 Dextrose/Water 1 250ml. bag @ 10 MCG/KG/MIN 17. 813 mls/hr IV .Q14H3M [facility] Rx#:[id number] Propofol 1,000 mg In 116.119 22.083 Empty Bag 1 bag @ Titrate IV .Q0M [facility] Rx#: [id number] Sodium Chloride 0.9% 1, 900 000 ml @ 75 mls/hr IV . [id number] [facility] Rx#:[id number] Tube Feeding 390 420 360 Other 90 90 60 Output: Urine 1805 2375 1430 Other: Voiding Method Indwelling Catheter Indwelling Catheter Indwelling Catheter # Bowel Movements 1 ABP, PAP, CO, CI - Last Documented Arterial Blood Pressure 163/68 - Exam On exam, patient intubated and sedated HEENT: Conjunctivae normal. eyes normal. NECK: No JVD. No thyroid enlargement. No LNs CARDIOVASCULAR: S1-S2 positive RESPIRATION: Breath sounds diminished in the bases. No rhonchi or crackles. No bronchial breathing. ABDOMEN: Soft, nontender . No guarding. no masses palpable. No ascites, No hepatosplenomegaly.Bowel sounds heard. LEGS: No edema. no swelling NERVOUS SYSTEM: neurological examination was not possible as the patient is intubated and sedated Skin: no ulcer no rash - Labs CBC & Chem 7: 08/29/18 04:28 08/29/18 11:00 Labs: Abnormal Lab Results - Last 24 Hours (Table) 08/28/18 08/28/18 08/28/18 Range/Units 04:35 15:32 19:58 WBC (3.8-10.6) k/uL RBC (4.30-5.90) m/uL Hgb (13.0-17.5) gm/dL Hct (39.0-53.0) % Neutrophils # (1.3-7.7) k/uL ABG pH 7.54 H (7.35-7.45) ABG pO2 56 L* 67 L (83-108) mmHg ABG HCO3 30 H (21-25) mmol/L ABG Total CO2 31 H (19-24) mmol/L Potassium (3.5-5.1) mmol/L Carbon Dioxide (22-30) mmol/L Glucose (74-99) mg/dL POC Glucose (mg/dL) 279 H (75-99) mg/dL Calcium (8.4-10.2) mg/dL AST (17-59) U/L Alkaline Phosphatase (38-126) U/L Total Protein (6.3-8.2) g/dL Albumin (3.5-5.0) g/dL 08/28/18 08/28/18 08/28/18 Range/Units 19:59 21:13 23:51 WBC (3.8-10.6) k/uL RBC (4.30-5.90) m/uL Hgb (13.0-17.5) gm/dL Hct (39.0-53.0) % Neutrophils # (1.3-7.7) k/uL ABG pH (7.35-7.45) ABG pO2 (83-108) mmHg ABG HCO3 (21-25) mmol/L ABG Total CO2 (19-24) mmol/L Potassium (3.5-5.1) mmol/L Carbon Dioxide (22-30) mmol/L Glucose (74-99) mg/dL POC Glucose (mg/dL) 258 H 248 H 243 H (75-99) mg/dL Calcium (8.4-10.2) mg/dL AST (17-59) U/L Alkaline Phosphatase (38-126) U/L Total Protein (6.3-8.2) g/dL Albumin (3.5-5.0) g/dL 08/29/18 08/29/18 08/29/18 Range/Units 03:55 04:28 04:28 WBC 10.7 H (3.8-10.6) k/uL RBC 3.77 L (4.30-5.90) m/uL Hgb 11.3 L (13.0-17.5) gm/dL Hct 35.0 L (39.0-53.0) % Neutrophils # 8.6 H (1.3-7.7) k/uL ABG pH (7.35-7.45) ABG pO2 (83-108) mmHg ABG HCO3 (21-25) mmol/L ABG Total CO2 (19-24) mmol/L Potassium 3.0 L (3.5-5.1) mmol/L Carbon Dioxide 32 H (22-30) mmol/L Glucose 192 H (74-99) mg/dL POC Glucose (mg/dL) 171 H (75-99) mg/dL Calcium 7.7 L (8.4-10.2) mg/dL AST 77 H (17-59) U/L Alkaline Phosphatase 127 H (38-126) U/L Total Protein 4.9 L (6.3-8.2) g/dL Albumin 2.5 L (3.5-5.0) g/dL 08/29/18 08/29/1819 Range/Units 04:32 08:33 11:00 WBC (3.8-10.6) k/uL RBC (4.30-5.90) m/uL Hgb (13.0-17.5) gm/dL Hct (39.0-53.0) % Neutrophils # (1.3-7.7) k/uL ABG pH 7.54 H (7.35-7.45) ABG pO2 80 L (83-108) mmHg ABG HCO3 33 H (21-25) mmol/L ABG Total CO2 34 H (19-24) mmol/L Potassium 3.3 L (3.5-5.1) mmol/L Carbon Dioxide (22-30) mmol/L Glucose (74-99) mg/dL POC Glucose (mg/dL) 162 H (75-99) mg/dL Calcium (8.4-10.2) mg/dL AST (17-59) U/L Alkaline Phosphatase (38-126) U/L Total Protein (6.3-8.2) g/dL Albumin (3.5-5.0) g/dL 08/29/18 08/29/18 Range/Units 11:43 12:35 WBC (3.8-10.6) k/uL RBC (4.30-5.90) m/uL Hgb (13.0-17.5) gm/dL Hct (39.0-53.0) % Neutrophils # (1.3-7.7) k/uL ABG pH 7.53 H (7.35-7.45) ABG pO2 (83-108) mmHg ABG HCO3 35 H (21-25) mmol/L ABG Total CO2 36 H (19-24) mmol/L Potassium (3.5-5.1) mmol/L Carbon Dioxide (22-30) mmol/L Glucose (74-99) mg/dL POC Glucose (mg/dL) 169 H (75-99) mg/dL Calcium (8.4-10.2) mg/dL AST (17-59) U/L Alkaline Phosphatase (38-126) U/L Total Protein (6.3-8.2) g/dL Albumin (3.5-5.0) g/dL Microbiology - Last 24 Hours (Table) 08/25/18 10:54 Blood Culture - Preliminary Blood No Growth after 96 hours 08/25/18 09:15 Blood Culture - Preliminary Blood No Growth after 96 hours Assessment and Plan Assessment: - acute respiratory failure requiring intubation - non-STEMI - Cardiogenic shock requiring balloon pump support which has been removed - Complete heart block requiring temporary venous pacemaker - Diabetes - Hyperlipidemia - Acute renal failure - NE - hypertension Plan 08/28/2018 - Continue ice and management as per dock grader - Cardiology on board, patient recommendations - on Lasix - We'll monitor the labs - DVT and GI prophylaxis - We'll follow up on the patient 08/29/2018 Continue ventilatory support Appreciated ICU recommendations He started on Lasix 40 every 8 Cardiology is following the patient We'll continue to monitor
[2018-08-29 15:39] LABS: Glucose,Whole Blood 175 mg/dL (75-99)
--- NOTE | 2018-08-29 16:22 | CT ---
EXAMINATION TYPE: CT chest wo con DATE OF EXAM: 08/29/2018 COMPARISON: 07/22/2016 HISTORY: 78-year-old male acute hypoxemia, ventilator dependent, Unable to remove patient from vent TECHNIQUE: Contiguous axial scanning of the chest without IV contrast. Coronal and sagittal reconstru ctions performed. CT DLP: 747 mGycm Automated exposure control for dose reduction was used. FINDINGS: ET and NG tubes are present. The ET tube tip is approximately 1.5 cm from the ricco. Consider ryan g back 1.5 cm and reassessing at follow-up. Heart upper limits of normal in size without pericardial effusion. Median sternotomy wires are presen t with post-CABG changes. Ectatic ascending aorta 3.8 cm with mild to moderate atherosclerotic arch calcifications and conventi onal arch vessel branching anatomy. Mildly aneurysmal upper descending thoracic aorta at 3.3 cm. Scattered nonenlarged mediastinal lymph nodes are demonstrated. There are moderate left greater than right pleural effusions. Prominent dependent consolidation parti cularly in within the right greater than left upper lobes and within several ligation of nearly the e ntire right lower lobe and dependent portion of the left lower lobe. Visualized upper abdomen shows a cyst within the anterior left kidney. 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 IMPRESSION: 1. ET TUBE TIP APPROXIMATELY 1.5 CM FROM THE RICCO. CONSIDER PULLING BACK AN ADDITIONAL 1.5 CM AND R EASSESSING AT FOLLOW-UP. 2. MODERATE LEFT GREATER THAN RIGHT PLEURAL EFFUSIONS. 3. THERE IS EXTENSIVE DEPENDENT CONSOLIDATION ADJACENT TO THE EFFUSIONS, PARTICULARLY IN THE RIGHT GR EATER THAN LEFT UPPER LOBES, WITHIN NEARLY THE ENTIRE RIGHT LOWER LOBE, AND THE DEPENDENT PORTION OF THE LEFT LOWER LOBE. CORRELATE FOR INFECTIOUS OR ASPIRATION PNEUMONITIS.
--- NOTE | 2018-08-29 17:12 | PN ---
PROGRESS NOTE DATE OF SERVICE: Mr. Vega is in sinus rhythm with first-degree AV block with a left bundle. He is doing much better from a pacemaker standpoint, but oxygenation issues persist. He is on 16 of PEEP, 50% FiO2. Oxygenation is fair. I am recommending that we discontinue the pacemaker today, continue other supportive care, and also diuresis. The next step would be to extubate him if possible. Vitals are stable. S1, S2 heard normally. Lungs reveal diminished air entry. Abdomen and lower extremity exam unchanged. I will discontinue the temporary pacemaker today. The patient is doing much better. MMODL / IJN: [id number] /
[2018-08-29] MEDS ORDERED: hydrALAZINE HCL 20 MG/ML 1 ML VIAL IVP PRN (18:02)
[2018-08-29 18:06] LABS: ABG HCO3 36 mmol/L (21-25); ABG PCO2 41 mmHg (35-45); ABG PO2 70 mmHg (83-108); ABG TCO2 38 mmol/L (19-24); Allen Test Performed? Yes
[2018-08-29 18:09] LABS: ABG PH 7.56 (7.35-7.45)
[2018-08-29 19:59] LABS: Glucose,Whole Blood 246 mg/dL (75-99)
[2018-08-29 23:58] LABS: Glucose,Whole Blood 229 mg/dL (75-99)
[2018-08-30] MEDS: INSULIN ASPART (NovoLOG) 100 UNIT/ML VIAL SQ SCH ×6 (00:03→20:23)
[2018-08-30] MEDS: FUROSEMIDE 10 MG/ML 4 ML VIAL IV SCH ×3 (00:04→20:24)
[2018-08-30] MEDS: HEPARIN SODIUM,PORCINE 5,000 UNIT/ML 1 ML VIAL SQ SCH ×3 (00:04→15:25)
[2018-08-30] MEDS: IPRATROPIUM-ALBUTEROL 3 ML NEB INHALATION SCH ×7 (00:12→23:21)
[2018-08-30] MEDS: PROPOFOL 1,000 MG in EMPTY BAG 1 BAG IV SCH ×4 (00:19→18:35)
[2018-08-30] MEDS: POTASSIUM BICARBONATE/CIT AC 20 MEQ TABLET.EFF NG-TUBE SCH ×2 (01:23→02:05)
[2018-08-30 04:19] LABS: Glucose,Whole Blood 242 mg/dL (75-99)
[2018-08-30 04:36] LABS: ABG Base Excess 6.8 mmol/L; ABG HCO3 30 mmol/L (21-25); ABG Oxygen Saturation 94.5 % (94-97); ABG PCO2 38 mmHg (35-45); ABG PH 7.51 (7.35-7.45); ABG PO2 72 mmHg (83-108); Allen Test Performed? Yes
[2018-08-30 04:41] LABS: HCT 36.5 % (39.0-53.0); HGB 11.9 gm/dL (13.0-17.5); MCH 30.5 pg (25.0-35.0); MCHC 32.5 g/dL (31.0-37.0); MCV 93.6 fL (80.0-100.0); Mean Platelet Volume 10.2; Platelet Count 186 k/uL (150-450); RDW 15.1 % (11.5-15.5); WBC 10.9 k/uL (3.8-10.6)
[2018-08-30 04:51] LABS: African American GFR (CKD) >90 (>60 ml/min/1.73 sqM); Anion Gap 5 mmol/L; Blood Urea Nitrogen 21 mg/dL (9-20); Calcium 8.1 mg/dL (8.4-10.2); Carbon Dioxide 32 mmol/L (22-30); Chloride 103 mmol/L (98-107); Glucose 267 mg/dL (74-99); Potassium 3.6 mmol/L (3.5-5.1); Sodium 140 mmol/L (137-145)
[2018-08-30] MEDS ORDERED: POTASSIUM BICARBONATE/CIT AC 20 MEQ TABLET.EFF NG-TUBE SCH (06:00)
--- NOTE | 2018-08-30 08:23 | PN ---
PROGRESS NOTE Mr. Vega is an 78-year-old male status post coronary artery bypass grafting, who presented with acute coronary syndrome. Underwent angioplasty and stenting by Dr. Pearson and Dr. Taylor. He had a temporary pacemaker because of episode of high-grade AV block. His temporary pacemaker was removed. He remains intubated and sedated. His blood pressure has been elevated. Hemodynamically, he has been in sinus mechanism. There is no evidence of malignant arrhythmia. He continues to have a first-degree AV block. His urine output has been stable. He is off the vasopressor. He continues to be at this time on amlodipine 5 mg twice a day, aspirin once a day, clopidogrel 75 mg daily, Lasix 40 mg IV q.8 hours. PHYSICAL EXAMINATION: Blood pressure running in the 130s to 160s. Heart rate in the 80s. LUNGS: Clear to auscultation anteriorly. HEART: Regular rate and rhythm. S1, S2. No S3. No rub. ABDOMEN: Soft, obese, nontender. EXTREMITIES: With trace to 1+ edema. LAB DATA: Lab data revealed BUN and creatinine 21 and 0.85. Potassium 3.6. Hemoglobin of 11.9. His echocardiogram that was done on the 23 of August revealed ejection fraction of 45% to 50%. IMPRESSION: 1. Respiratory failure requiring mechanical ventilation. 2. Non ST-segment elevation myocardial infarction, status post percutaneous revascularization. 3. History of coronary artery bypass grafting. 4. Complete heart block, transient temporary pacemaker, resolved. 5. Hypertension. RECOMMENDATION: From the cardiac standpoint, I will add Aldactone to his regimen. I will also add a low- dose of an DAVID inhibitor and follow his renal function. We will follow his rhythm and see if we can re-initiate treatment with a beta robert. We will hopefully be able to wean and extubate soon. MMODL / IJN: [id number] /
--- NOTE | 2018-08-30 08:30 | XR ---
EXAMINATION TYPE: XR chest 1V portable DATE OF EXAM: 08/30/2018 COMPARISON: 08/29/2018 HISTORY: Shortness of breath FINDINGS: There are bilateral pleural effusions with cardiomegaly and bibasilar infiltrate. There is a diffuse interstitial pattern. Postsurgical changes noted. Central line and ET tube and NG tube stable. Arthr opathy of the shoulders. IMPRESSION: 1. Stable diffuse lung disease correlate for CHF versus diffuse pneumonia.
[2018-08-30 09:00] LABS: Glucose,Whole Blood 236 mg/dL (75-99)
[2018-08-30] MEDS: amLODIPine 5 MG TAB PO SCH (09:32)
[2018-08-30] MEDS: ATORVASTATIN 40 MG TAB PO SCH (09:32)
[2018-08-30] MEDS: CLOPIDOGREL 75 MG TAB PO SCH (09:32)
[2018-08-30] MEDS: ASPIRIN 81 MG PO SCH (09:32)
[2018-08-30] MEDS: CHLORHEXIDINE GLUCONATE 15 ML CUP MUCOUS MEM SCH ×2 (09:33→20:24)
[2018-08-30] MEDS: INSULIN DETEMIR (LEVEMIR) 100 UNIT/ML SYR SQ SCH (09:36)
[2018-08-30] MEDS: PREVAGEN PO SCH (09:38)
[2018-08-30] MEDS: SPIRONOLACTONE 25 MG TAB PO SCH (10:00)
[2018-08-30] MEDS: MULTIVITAMINS, THERA 1 EACH TAB PO SCH (10:00)
[2018-08-30] MEDS: PANTOPRAZOLE 40 MG/10 ML VIAL IVP SCH (10:00)
[2018-08-30] MEDS: LISINOPRIL 5 MG TAB PO SCH ×2 (10:00→20:24)
[2018-08-30 12:50] LABS: Glucose,Whole Blood 219 mg/dL (75-99)
--- NOTE | 2018-08-30 13:05 | P.PN ---
Subjective 78-year-old gentleman who is seen in the ICU. Patient is currently intubated. Patient initially is transferred from another facility on 08/21/2018. He was diagnosed with non-STEMI. He went for cardiac cath and underwent successful stenting of the distal right RCA and PDA branch of the coronary artery. He developed transient occlusion of the distal branches which were opened up. Patient went into complete heart block and received transfusion his pacemaker. Patient was brought to the incentive care unit. In the ICU he developed chest discomfort again hypertension and he was a came back to the flue dust laborer. He received intra-aortic balloon pump and stenting of the saphenous vein graft to the obtuse marginal branch of the circumflex. He was at this time intubated and put on ventilator. Patient is still on ventilator. Sedated On 08/29/2018 Patient intubated and sedated Weaning trial 08/30/2018 Patient still intubated Weaning trial in progress On a sedation holiday right now Objective - Vital Signs Vital signs: Vital Signs Temp 98.5 F 08/30/18 12:00 Pulse 86 08/30/18 12:00 Resp 16 08/30/18 12:00 BP 126/73 08/30/18 12:00 Pulse Ox 96 08/30/18 12:00 Intake & Output 08/29/18 08/30/18 08/30/18 18:59 06:59 18:59 Intake Total 499.768 2238.428 494 Output Total 2029 3020 1150 Balance -1138.830 -1845.572 -656 Weight 106.4 kg 102.4 kg Intake: IV 286 338 130 0.9 Nacl @ 20 ml/hr KVO 220 260 100 Arterial Sheath pressure 66 78 30 bag Intake, IV Titration 35.170 219.428 Amount Propofol 1,000 mg In 35.170 219.428 Empty Bag 1 bag @ Titrate IV .Q0M [facility] Rx#: [id number] Tube Feeding 480 527 304 Other 90 90 60 Output: Urine 20290 1150 Other: Voiding Method Indwelling Catheter Indwelling Catheter ABP, PAP, CO, CI - Last Documented Arterial Blood Pressure 148/63 - Exam On exam, patient intubated and sedated HEENT: Conjunctivae normal. eyes normal. NECK: No JVD. No thyroid enlargement. No LNs CARDIOVASCULAR: S1-S2 positive RESPIRATION: Breath sounds diminished in the bases. No rhonchi or crackles. No bronchial breathing. ABDOMEN: Soft, nontender . No guarding. no masses palpable. No ascites, No hepatosplenomegaly.Bowel sounds heard. LEGS: No edema. no swelling NERVOUS SYSTEM: neurological examination was not possible as the patient is intubated and sedated Skin: no ulcer no rash - Labs CBC & Chem 7: 08/30/18 04:30 08/30/18 04:30 Labs: Abnormal Lab Results - Last 24 Hours (Table) 08/29/18 08/29/18 08/29/18 Range/Units 11:00 15:37 18:03 WBC (3.8-10.6) k/uL RBC (4.30-5.90) m/uL Hgb (13.0-17.5) gm/dL Hct (39.0-53.0) % ABG pH 7.56 H* (7.35-7.45) ABG pO2 70 L (83-108) mmHg ABG HCO3 36 H (21-25) mmol/L ABG Total CO2 38 H (19-24) mmol/L Potassium (3.5-5.1) mmol/L Carbon Dioxide (22-30) mmol/L BUN (9-20) mg/dL Glucose (74-99) mg/dL POC Glucose (mg/dL) 175 H (75-99) mg/dL Calcium (8.4-10.2) mg/dL Procalcitonin 0.20 H (0.02-0.09) ng/mL 08/29/18 08/29/18 08/29/18 Range/Units 18:35 19:57 23:50 WBC (3.8-10.6) k/uL RBC (4.30-5.90) m/uL Hgb (13.0-17.5) gm/dL Hct (39.0-53.0) % ABG pH (7.35-7.45) ABG pO2 (83-108) mmHg ABG HCO3 (21-25) mmol/L ABG Total CO2 (19-24) mmol/L Potassium 3.3 L 3.3 L (3.5-5.1) mmol/L Carbon Dioxide (22-30) mmol/L BUN (9-20) mg/dL Glucose (74-99) mg/dL POC Glucose (mg/dL) 246 H (75-99) mg/dL Calcium (8.4-10.2) mg/dL Procalcitonin (0.02-0.09) ng/mL 08/29/18 08/30/18 08/30/18 Range/Units 23:54 04:03 04:23 WBC (3.8-10.6) k/uL RBC (4.30-5.90) m/uL Hgb (13.0-17.5) gm/dL Hct (39.0-53.0) % ABG pH 7.51 H (7.35-7.45) ABG pO2 72 L (83-108) mmHg ABG HCO3 30 H (21-25) mmol/L ABG Total CO2 (19-24) mmol/L Potassium (3.5-5.1) mmol/L Carbon Dioxide (22-30) mmol/L BUN (9-20) mg/dL Glucose (74-99) mg/dL POC Glucose (mg/dL) 229 H 242 H (75-99) mg/dL Calcium (8.4-10.2) mg/dL Procalcitonin (0.02-0.09) ng/mL 08/30/18 08/30/18 08/30/18 Range/Units 04:30 04:30 08:57 WBC 10.9 H (3.8-10.6) k/uL RBC 3.90 L (4.30-5.90) m/uL Hgb 11.9 L (13.0-17.5) gm/dL Hct 36.5 L (39.0-53.0) % ABG pH (7.35-7.45) ABG pO2 (83-108) mmHg ABG HCO3 (21-25) mmol/L ABG Total CO2 (19-24) mmol/L Potassium (3.5-5.1) mmol/L Carbon Dioxide 32 H (22-30) mmol/L BUN 21 H (9-20) mg/dL Glucose 267 H (74-99) mg/dL POC Glucose (mg/dL) 236 H (75-99) mg/dL Calcium 8.1 L (8.4-10.2) mg/dL Procalcitonin (0.02-0.09) ng/mL 08/30/18 Range/Units 11:45 WBC (3.8-10.6) k/uL RBC (4.30-5.90) m/uL Hgb (13.0-17.5) gm/dL Hct (39.0-53.0) % ABG pH (7.35-7.45) ABG pO2 (83-108) mmHg ABG HCO3 (21-25) mmol/L ABG Total CO2 (19-24) mmol/L Potassium (3.5-5.1) mmol/L Carbon Dioxide (22-30) mmol/L BUN (9-20) mg/dL Glucose (74-99) mg/dL POC Glucose (mg/dL) 219 H (75-99) mg/dL Calcium (8.4-10.2) mg/dL Procalcitonin (0.02-0.09) ng/mL Microbiology - Last 24 Hours (Table) 08/25/18 09:15 Blood Culture - Preliminary Blood No Growth after 120 hours 08/25/18 10:54 Blood Culture - Preliminary Blood No Growth after 96 hours Assessment and Plan Assessment: - acute respiratory failure requiring intubation - non-STEMI - Cardiogenic shock requiring balloon pump support which has been removed - Complete heart block requiring temporary venous pacemaker - Diabetes - Hyperlipidemia - Acute renal failure - NE - hypertension Plan 08/28/2018 - Continue ice and management as per ethanol maintenance mechanic - Cardiology on board, patient recommendations - on Lasix - We'll monitor the labs - DVT and GI prophylaxis - We'll follow up on the patient 08/29/2018 Continue ventilatory support Appreciated ICU recommendations He started on Lasix 40 every 8 Cardiology is following the patient We'll continue to monitor 08/30/2018 - Continue Lasix as per cardiology - ICU management appreciated - Continue rest of the medical care - Weaning trial in progress - We will follow the patient
--- NOTE | 2018-08-30 13:19 | CDI ---
Documentation Clarification Form Date: 08/30/2018 1:05:50 PM From: Valerie Gasca RN, CCDS Admit Date: 08/23/2018 1:09:00 PM Patient Name: Tucker Vega Visit Number: [id number] ATTENTION: The Clinical Documentation Specialists (CDI) and [facility] Coding Staff appreciate your assistance in clarifying documentation. Please respond to the clarification below the line at the bottom and electronically sign. The CDI & [facility] Coding staff will review the response and follow-up if needed. Please note: Queries are made part of the Legal Health Record. If you have any questions, please contact the author of this message via ITS. Dr. Juan Ko/Saranya Chavis CNP CHF is documented in your 08/27 progress note and requires further specificity. History/Risk Factors: AMI with Cardiogenic shock this admission, stents, IABP, and TVP Clinical Indicators: 08/27 Pulmonary Progress Note: "Vital signs are stable, she is still being 100% paced at a rate of 50, underlying rhythm is bradycardia, with a rate of 44-48 p.m. today's chest x-ray has been reviewed, showing improving changes of congestive heart failure, still some residual interstitial edema, and left pleural effusion." BNP: not ordered Cardiology has made no mention of CHF or pulmonary edema Echocardiogram Results: EF 45-50% 08/30 Chest X Ray: Stable diffuse lung disease correlate for chf vs. pneumonia Treatment: Several Lasix 40 mg IVP OT doses since admission, currently on 40mg IVP Q 12 hrs In your professional opinion, can you please clarify the acuity and type of CHF if known? Systolic Heart Failure: Acute Acute on Chronic Systolic & Diastolic Heart Failure: Acute Acute on Chronic Heart Failure Unable to Determine Other, please specify (Last Revision: May 2017) Acute congestive heart failure, cardiogenic shock, with systolic dysfunction, and echocardiogram completed on 08/23/2018 revealed ejection fraction of 45-50% MTDD
--- NOTE | 2018-08-30 14:56 | P.PN ---
Subjective Progress Note Date: 08/30/18 There is evaluation of 08/28/2018 I'm seeing this patient for a follow-up. This patient is known to have coronary artery disease and the patient came an acute non-STEMI and the patient underwent a emergent stenting of the RCA and subsequently had to be taken back to the Transition Advisor where the patient underwent stenting of the PDA branch of the RCA and PCI and stenting of the saphenous vein graft to up to is marginal. The patient's course was complicated by cardiogenic shock from which the patient recovered and intra-aortic balloon pump was removed. He also developed acute kidney injury from which she recovered. The patient is known to have diabetes mellitus type 2, prostate cancer, chronic back pain, hyperlipidemia, hypertension and previous history of dementia. The patient remains intubated on a mechanical ventilator. This morning the patient and assist control mode of ventilation with a rate of 16 with a tidal volume of 450-50% with a PEEP of 16. Note That Earlier This Morning Showed a pH of 7.50 with a PCO2 of 36 and PO2 of 56. The Chest X-Ray from Today from Today Showing Adequate Positioning of the ET Tube. No Evidence of Any Pneumothorax. There is bibasilar pulmonary infiltrates seen. The patient's CVP was around 10. I started him on Lasix if he was started on Lasix 40 mg IV every 8 hours. Meanwhile, the patient's rhythm was slightly tachycardic today. EKG was done a nd the patient was found to have right bundle branch block pattern within a A. fib rhythm. The patient is currently on dopamine at 3 g per KG per minute. His renal function is improved. He is afebrile. He is tolerating his tube feeds which is at goal with vital high protein at the rate of 30 mL an hour. He is producing adequate amount of urine output. The patient is afebrile. The patient is maintaining a normal renal function at creatinine of 0.8. The acute kidney injury is improved. No significant leukocytosis. No other significant events overnight otherwise for now. On 08/29/2018, the patient remains sedated and abated on a mechanical ventilator. Vent settings with a tidal volume of 450 with a PEEP of 16 FiO2 of 50% and a rate of 16. Chest x-ray shows no significant change. The patient was started on diuretics yesterday with Lasix 40 mg IV push every 8 hours and the patient is a negative fluid balance. Pulse ox on the monitor his in the order of 97% and based on that the patient was dropped down to 14 of PEEP and later on down to 12 of PEEP maintaining a saturation above 90%. IV fluids have been cut to KVO. The patient is a negative fluid balance. The patient is in a first- degree AV block with a RBBB pattern and the dopamine drip has been discontinued. Blood pressure has picked up nicely. The patient is receiving enteral feeding for nutritional support. No fever. No chills no leukocytosis. Blood gases from today showed a pH of 7.53 with a pCO2 of 42 and pO2 of 90 and this was done on above-mentioned vent setting. The patient has a stable white count of 10.7. Hemoglobin is at 11.3. No other significant events over the past 24 hours. Creatinine is also stable at 0.8. On today's evaluation of 08/30/2018 I'm seeing this patient for a follow-up. The patient remains on a mechanical ventilator. The patient is being diuresis for now with IV Lasix and the patient remains in a negative fluid balance. He is producing excess amount of urine output. His oxidation is improved. Or the past 24 hours and was able to cut down the PEEP to 10. I repeated the blood gas today and showed a pH of 7.51 with a pCO2 of 38 and pO2 72. Note that the bobo ient was given 2 doses of Diamox yesterday. That fluid balance is negative more than 3 and half liters over the past 24 hours. The chest x-ray from today shows bilateral pleural effusion and atelectatic changes in lung bases bilaterally. Similar finding was also seen on the CAT scan of the chest that was done yesterday. No fever. No chills. Pro calcitonin level was slightly elevated. The patient is afebrile. The patient is hemodynamically stable and tolerating the diuretics very well. I'm also going to give this patient a sedation holiday. Sedation was stopped this morning and were monitoring his mental status very closely. His cardiac rhythm is sinus at this point in time. Objective - Vital Signs Vital signs: Vital Signs Temp 98.5 F 08/30/18 12:00 Pulse 86 08/30/18 12:00 Resp 16 08/30/18 12:00 BP 126/73 08/30/18 12:00 Pulse Ox 96 08/30/18 12:00 Intake & Output 08/29/18 08/30/18 08/30/18 18:59 06:59 18:59 Intake Total 321.231 6536.428 494 Output Total 2029 3020 1150 Balance -1138.830 -1845.572 -656 Weight 106.4 kg 102.4 kg Intake: IV 286 338 130 0.9 Nacl @ 20 ml/hr KVO 220 260 100 Arterial Sheath pressure 66 78 30 bag Intake, IV Titration 35.170 219.428 Amount Propofol 1,000 mg In 35.170 219.428 Empty Bag 1 bag @ Titrate IV .Q0M [facility] Rx#: [id number] Tube Feeding 480 527 304 Other 90 90 60 Output: Urine 2029 3019 1150 Other: Voiding Method Indwelling Catheter Indwelling Catheter ABP, PAP, CO, CI - Last Documented Arterial Blood Pressure 148/63 - Exam GENERAL EXAM: Sedated, intubated, obese, 78-year-old white male comfortable in no apparent distress. The patient is well sedated and calm and comfortable likely distress. Orogastric and orotracheal tube are both in place. HEAD: Normocephalic/atraumatic. EYES: Normal reaction of pupils, equal size. Conjunctiva pink, sclera white. NOSE: Clear with pink turbinates. THROAT: No erythema or exudates. NECK: No masses, no JVD, no thyroid enlargement, no adenopathy. CHEST: No chest wall deformity. Symmetrical expansion. LUNGS: Equal air entry with no crackles, wheeze, rhonchi or dullness. CVS: Regular rate and rhythm, normal S1 and S2, no gallops, no murmurs, no rubs ABDOMEN: Soft, nontender. No hepatosplenomegaly, normal bowel sounds, no guarding or rigidity. EXTREMITIES: No clubbing, no edema, no cyanosis, 2+ pulses and upper and lower extremities. MUSCULOSKELETAL: Muscle strength and tone normal. SPINE: No scoliosis or deformity SKIN: No rashes CENTRAL NERVOUS SYSTEM: Sedated. No focal deficits, tone is normal in all 4 extremities. The patient remains on propofol for sedation. The propofol was discontinued this morning and the patient is being given a sedation holiday. PSYCHIATRIC: Sedated. - Labs CBC & Chem 7: 08/30/18 04:30 08/30/18 04:30 Labs: Abnormal Lab Results - Last 24 Hours (Table) 08/29/18 08/29/18 08/29/18 Range/Units 11:00 15:37 18:03 WBC (3.8-10.6) k/uL RBC (4.30-5.90) m/uL Hgb (13.0-17.5) gm/dL Hct (39.0-53.0) % ABG pH 7.56 H* (7.35-7.45) ABG pO2 70 L (83-108) mmHg ABG HCO3 36 H (21-25) mmol/L ABG Total CO2 38 H (19-24) mmol/L Potassium (3.5-5.1) mmol/L Carbon Dioxide (22-30) mmol/L BUN (9-20) mg/dL Glucose (74-99) mg/dL POC Glucose (mg/dL) 175 H (75-99) mg/dL Calcium (8.4-10.2) mg/dL Procalcitonin 0.20 H (0.02-0.09) ng/mL 08/29/18 08/29/18 08/29/18 Range/Units 18:35 19:57 23:50 WBC (3.8-10.6) k/uL RBC (4.30-5.90) m/uL Hgb (13.0-17.5) gm/dL Hct (39.0-53.0) % ABG pH (7.35-7.45) ABG pO2 (83-108) mmHg ABG HCO3 (21-25) mmol/L ABG Total CO2 (19-24) mmol/L Potassium 3.3 L 3.3 L (3.5-5.1) mmol/L Carbon Dioxide (22-30) mmol/L BUN (9-20) mg/dL Glucose (74-99) mg/dL POC Glucose (mg/dL) 246 H (75-99) mg/dL Calcium (8.4-10.2) mg/dL Procalcitonin (0.02-0.09) ng/mL 08/29/18 08/30/18 08/30/18 Range/Units 23:54 04:03 04:23 WBC (3.8-10.6) k/uL RBC (4.30-5.90) m/uL Hgb (13.0-17.5) gm/dL Hct (39.0-53.0) % ABG pH 7.51 H (7.35-7.45) ABG pO2 72 L (83-108) mmHg ABG HCO3 30 H (21-25) mmol/L ABG Total CO2 (19-24) mmol/L Potassium (3.5-5.1) mmol/L Carbon Dioxide (22-30) mmol/L BUN (9-20) mg/dL Glucose (74-99) mg/dL POC Glucose (mg/dL) 229 H 242 H (75-99) mg/dL Calcium (8.4-10.2) mg/dL Procalcitonin (0.02-0.09) ng/mL 08/30/18 08/30/18 08/30/18 Range/Units 04:30 04:30 08:57 WBC 10.9 H (3.8-10.6) k/uL RBC 3.90 L (4.30-5.90) m/uL Hgb 11.9 L (13.0-17.5) gm/dL Hct 36.5 L (39.0-53.0) % ABG pH (7.35-7.45) ABG pO2 (83-108) mmHg ABG HCO3 (21-25) mmol/L ABG Total CO2 (19-24) mmol/L Potassium (3.5-5.1) mmol/L Carbon Dioxide 32 H (22-30) mmol/L BUN 21 H (9-20) mg/dL Glucose 267 H (74-99) mg/dL POC Glucose (mg/dL) 236 H (75-99) mg/dL Calcium 8.1 L (8.4-10.2) mg/dL Procalcitonin (0.02-0.09) ng/mL 08/30/18 Range/Units 11:45 WBC (3.8-10.6) k/uL RBC (4.30-5.90) m/uL Hgb (13.0-17.5) gm/dL Hct (39.0-53.0) % ABG pH (7.35-7.45) ABG pO2 (83-108) mmHg ABG HCO3 (21-25) mmol/L ABG Total CO2 (19-24) mmol/L Potassium (3.5-5.1) mmol/L Carbon Dioxide (22-30) mmol/L BUN (9-20) mg/dL Glucose (74-99) mg/dL POC Glucose (mg/dL) 219 H (75-99) mg/dL Calcium (8.4-10.2) mg/dL Procalcitonin (0.02-0.09) ng/mL Microbiology - Last 24 Hours (Table) 08/25/18 10:54 Blood Culture - Preliminary Blood No Growth after 120 hours 08/25/18 09:15 Blood Culture - Preliminary Blood No Growth after 120 hours Assessment and Plan Plan: #1 Acute non-ST segment elevation myocardial infarction status post stenting to the distal right coronary artery and stenting of the PDA branch of the right coronary artery with transient bradycardia requiring insertion of transvenous temporary pacemaker. He subsequently developed recurrent chest pain cardiogenic shock and was taken back to the [facility] and received stenting to the saphenous vein graft to the obtuse marginal branch of the circumflex. Insertion of intra- aortic balloon pump. Reposition of the TVP. Intubated and on mechanical ventilation. She remains on 3 mics of dopamine per chainsaw mechanic recommendation. The renal function is improved and normalized. The patient is maintaining his own blood pressure. CVP is around 10 the patient is started on diuretics for no w. On today's evaluation of 08/29/2018, the patient remains intubated on a mechanical ventilator. Nevertheless, the patient is currently off dopamine. The patient is diuresing very nicely with IV Lasix and the patient is maintaining a negative fluid balance. Hemodynamically stable at this point in time. Should be able to cut down the PEEP gradually to maintain a saturation above 90%. On today's evaluation of 08/30/2018, I'm seeing this patient for a follow-up. The patient is improved in terms of his oxygenation. I was able to cut down the PEEP down to 10 and the patient is a negative fluid balance as the patient is being diuresed and the patient is at least 3 L in a negative fluid balance since yesterday. Tolerating diuretics well. He has developed a component of metabolic alkalosis and the patient was given 2 doses of Diamox. Repeat blood gases are to follow. Chest x-ray was noted. CAT scan of the chest done yesterday was noted. #2 Cardiogenic shock secondary to above, recovering, and the patient is currently not taking any pressors for now. #3 Previous history of coronary artery disease with coronary artery bypass grafting utilizing the GAVIRIA to the LAD, saphenous vein grafts to the diagonal and OM back in 2008. #4 acute hypoxic respiratory failure with a chest x-ray done today consistent with edema/fluid overload. The patient will be started on diuretics. Oxidation is somewhat improved compared to yesterday. Blood gases was noted. Chest x-ray was noted. The patient is diuresing and the patient is a negative fluid balance #5 Dementia. #6 Prostate cancer. #7 Previous history of pneumonia/sepsis. #8 Chronic back pain. #9 History of renal colic. #10 Hyperlipidemia. #11 Hypertension. #12 acute kidney injury, recovered #13 dementia #14 right bundle branch block pattern along with a first-degree AV block. The patient had short run of atrial fibrillation yesterday Plan: Continue the vent support. Start the patient on IV Lasix 40 mg every 8 hours. Monitor the cardiac rhythm. Repeat the blood gas. Monitor CVP. The CAT scan of the chest was noted. The blood gases was noted. We'll continue Diamox for now. With continued IV Lasix. Cut down the FiO2 to 40%. Cut down the PEEP down to 8 and later down to 5 and the patient is able to maintain a saturation above 90%. Proceed with sedation holiday. Monitor cardiac rhythm. Continue enteral feeding for nutritional support. We'll continue to follow make further recommendations based on his progress. His condition remains critical and this evaluation was done more than 30 minutes.
[2018-08-30 15:23] LABS: Glucose,Whole Blood 217 mg/dL (75-99)
[2018-08-30 20:17] LABS: Glucose,Whole Blood 216 mg/dL (75-99)
[2018-08-30 23:58] LABS: Glucose,Whole Blood 201 mg/dL (75-99)
[2018-08-31] MEDS: INSULIN ASPART (NovoLOG) 100 UNIT/ML VIAL SQ SCH ×6 (00:08→20:02)
[2018-08-31] MEDS: HEPARIN SODIUM,PORCINE 5,000 UNIT/ML 1 ML VIAL SQ SCH ×3 (00:08→16:29)
[2018-08-31] MEDS: PROPOFOL 1,000 MG in EMPTY BAG 1 BAG IV SCH ×3 (00:09→18:13)
[2018-08-31] MEDS: IPRATROPIUM-ALBUTEROL 3 ML NEB INHALATION SCH ×6 (03:07→23:37)
[2018-08-31 04:20] LABS: Glucose,Whole Blood 137 mg/dL (75-99)
[2018-08-31 04:28] LABS: HCT 35.8 % (39.0-53.0); HGB 11.8 gm/dL (13.0-17.5); MCH 30.7 pg (25.0-35.0); MCV 93.1 fL (80.0-100.0); Mean Platelet Volume 8.9; Platelet Count 233 k/uL (150-450); RBC 3.84 m/uL (4.30-5.90); RDW 14.1 % (11.5-15.5); WBC 10.7 k/uL (3.8-10.6)
[2018-08-31 04:36] LABS: Calcium 8.5 mg/dL (8.4-10.2); Magnesium 1.9 mg/dL (1.6-2.3); Potassium 3.1 mmol/L (3.5-5.1)
[2018-08-31 04:49] LABS: ABG HCO3 26 mmol/L (21-25); ABG Oxygen Saturation 93.1 % (94-97); ABG PCO2 35 mmHg (35-45); ABG PH 7.49 (7.35-7.45); ABG PO2 66 mmHg (83-108); ABG TCO2 28 mmol/L (19-24); Allen Test Performed? Yes
[2018-08-31] MEDS ORDERED: Magnesium Replacement Protocol 1 EACH MISC MISCELLANE PRN (05:09)
[2018-08-31] MEDS: MAGNESIUM SULFATE-D5W PMX 1 GM in DEXTROSE/WATER 1 100ML.BAG IVPB SCH ×2 (05:35→06:42)
[2018-08-31] MEDS: POTASSIUM BICARBONATE/CIT AC 20 MEQ TABLET.EFF NG-TUBE SCH ×6 (05:36→18:09)
--- NOTE | 2018-08-31 07:40 | XR ---
EXAMINATION TYPE: XR chest 1V portable DATE OF EXAM: 08/31/2018 COMPARISON: 08/30/2018 HISTORY: Shortness of breath TECHNIQUE: Single frontal view of the chest is obtained. FINDINGS: There are bilateral pleural effusions with cardiomegaly and bibasilar infiltrate. There is a diffuse interstitial pattern. Postsurgical changes noted. Central line and ET tube and NG tube are noted. Arthropathy of the shoulders. IMPRESSION: 1. Stable diffuse lung disease correlate for CHF versus diffuse pneumonia. ET tube is low in position at the level of the ricco.
[2018-08-31] MEDS: CHLORHEXIDINE GLUCONATE 15 ML CUP MUCOUS MEM SCH ×2 (07:51→20:03)
[2018-08-31] MEDS: PANTOPRAZOLE 40 MG/10 ML VIAL IVP SCH (08:02)
[2018-08-31] MEDS: ATORVASTATIN 40 MG TAB PO SCH (08:03)
[2018-08-31] MEDS: amLODIPine 5 MG TAB PO SCH (08:03)
[2018-08-31] MEDS: MULTIVITAMINS, THERA 1 EACH TAB PO SCH (08:03)
[2018-08-31] MEDS: CLOPIDOGREL 75 MG TAB PO SCH (08:03)
[2018-08-31] MEDS: ASPIRIN 81 MG PO SCH (08:03)
[2018-08-31] MEDS: LISINOPRIL 5 MG TAB PO SCH ×2 (08:03→20:41)
--- NOTE | 2018-08-31 08:43 | PN ---
PROGRESS NOTE HISTORY: Mr. Vega is an 78-year-old male with known history of coronary artery disease, status post coronary artery bypass grafting who underwent percutaneous revascularization, had episode of complete heart block requiring temporary pacemaker that has been removed since that time. He remains intubated. Hemodynamically, his blood pressure has been under good control, at times elevated. He had no significant arrhythmia. No heart block. He continued be in sinus mechanism with intraventricular conduction delay. His urine output is stable. He continues to be at this point on off Diamox 250 mg every 12 hours, amlodipine 5 mg daily, aspirin once a day, Lipitor 40 mg daily, Plavix 75 mg daily, Lasix 40 mg IV every 12 hours, lisinopril 5 mg twice a day and spironolactone 25 mg daily. PHYSICAL EXAMINATION: Blood pressure 130/58 with a heart rate in 70s. LUNGS: Clear anteriorly. HEART: Regular rate and rhythm. S1, S2. No S3. No rub or gallop appreciated, with systolic murmur. ABDOMEN: Soft obese nontender. EXTREMITIES: Trace edema. LAB DATA: Lab data revealed BUN and creatinine 26 and 0.95, potassium 3.1, hemoglobin of 11.8. His bicarb is 29. IMPRESSION: 1. Status post non ST-segment elevation myocardial infarction with multivessel stenting. 2. Status post coronary artery bypass grafting. 3. Respiratory failure. 4. Complete heart block, resolved. 5. History of hyperlipidemia. 6. Hypertension. RECOMMENDATIONS: From the cardiac standpoint, will continue present therapy. Patient is having a sedation holiday to see if he can tolerate extubation. I will continue on the DAVID inhibitor. Replace his potassium. Follow his heart rate. If there is no further episode of heart block then a beta robert will be added. Depending on his progress, further recommendations will be made. MMODL / IJN: [id number] /
[2018-08-31 09:17] LABS: Glucose,Whole Blood 236 mg/dL (75-99)
[2018-08-31] MEDS: FUROSEMIDE 10 MG/ML 4 ML VIAL IV SCH ×2 (09:20→20:03)
[2018-08-31] MEDS: PREVAGEN PO SCH (09:33)
[2018-08-31] MEDS: INSULIN DETEMIR (LEVEMIR) 100 UNIT/ML SYR SQ SCH (09:34)
[2018-08-31] MEDS: SPIRONOLACTONE 25 MG TAB PO SCH (09:38)
[2018-08-31 12:07] LABS: Glucose,Whole Blood 236 mg/dL (75-99)
--- NOTE | 2018-08-31 12:41 | P.PN ---
Subjective Progress Note Date: 08/31/18 There is evaluation of 08/28/2018 I'm seeing this patient for a follow-up. This patient is known to have coronary artery disease and the patient came an acute non-STEMI and the patient underwent a emergent stenting of the RCA and subsequently had to be taken back to the [facility] Promotion Coordinator where the patient underwent stenting of the PDA branch of the RCA and PCI and stenting of the saphenous vein graft to up to is marginal. The patient's course was complicated by cardiogenic shock from which the patient recovered and intra-aortic balloon pump was removed. He also developed acute kidney injury from which she recovered. The patient is known to have diabetes mellitus type 2, prostate cancer, chronic back pain, hyperlipidemia, hypertension and previous history of dementia. The patient remains intubated on a mechanical ventilator. This morning the patient and assist control mode of ventilation with a rate of 16 with a tidal volume of 450-50% with a PEEP of 16. Note That Earlier This Morning Showed a pH of 7.50 with a PCO2 of 36 and PO2 of 56. The Chest X-Ray from Today from Today Showing Adequate Positioning of the ET Tube. No Evidence of Any Pneumothorax. There is bibasilar pulmonary infiltrates seen. The patient's CVP was around 10. I started him on Lasix if he was started on Lasix 40 mg IV every 8 hours. Meanwhile, the patient's rhythm was slightly tachycardic today. EKG was done a nd the patient was found to have right bundle branch block pattern within a A. fib rhythm. The patient is currently on dopamine at 3 g per KG per minute. His renal function is improved. He is afebrile. He is tolerating his tube feeds which is at goal with vital high protein at the rate of 30 mL an hour. He is producing adequate amount of urine output. The patient is afebrile. The patient is maintaining a normal renal function at creatinine of 0.8. The acute kidney injury is improved. No significant leukocytosis. No other significant events overnight otherwise for now. On 08/29/2018, the patient remains sedated and abated on a mechanical ventilator. Vent settings with a tidal volume of 450 with a PEEP of 16 FiO2 of 50% and a rate of 16. Chest x-ray shows no significant change. The patient was started on diuretics yesterday with Lasix 40 mg IV push every 8 hours and the patient is a negative fluid balance. Pulse ox on the monitor his in the order of 97% and based on that the patient was dropped down to 14 of PEEP and later on down to 12 of PEEP maintaining a saturation above 90%. IV fluids have been cut to KVO. The patient is a negative fluid balance. The patient is in a first- degree AV block with a RBBB pattern and the dopamine drip has been discontinued. Blood pressure has picked up nicely. The patient is receiving enteral feeding for nutritional support. No fever. No chills no leukocytosis. Blood gases from today showed a pH of 7.53 with a pCO2 of 42 and pO2 of 90 and this was done on above-mentioned vent setting. The patient has a stable white count of 10.7. Hemoglobin is at 11.3. No other significant events over the past 24 hours. Creatinine is also stable at 0.8. On today's evaluation of 08/30/2018 I'm seeing this patient for a follow-up. The patient remains on a mechanical ventilator. The patient is being diuresis for now with IV Lasix and the patient remains in a negative fluid balance. He is producing excess amount of urine output. His oxidation is improved. Or the past 24 hours and was able to cut down the PEEP to 10. I repeated the blood gas today and showed a pH of 7.51 with a pCO2 of 38 and pO2 72. Note that the bobo ieleila was given 2 doses of Diamox yesterday. That fluid balance is negative more than 3 and half liters over the past 24 hours. The chest x-ray from today shows bilateral pleural effusion and atelectatic changes in lung bases bilaterally. Similar finding was also seen on the CAT scan of the chest that was done yesterday. No fever. No chills. Pro calcitonin level was slightly elevated. The patient is afebrile. The patient is hemodynamically stable and tolerating the diuretics very well. I'm also going to give this patient a sedation holiday. Sedation was stopped this morning and were monitoring his mental status very closely. His cardiac rhythm is sinus at this point in time. On 08/31/2018 I'm seeing this patient for a follow-up. The patient remains on a mechanical ventilator. Oxygenation is improved. The patient is currently down to 5 of PEEP. The morning blood gases while being on assist control mode at the rate of 14 with a tidal volume of 450 and FiO2 of 40% with a PEEP of 5 showed a pH of 7.49 with a pCO2 of 35 and pO2 of 66. The patient is producing good amount of urine output. In fact he has been in a negative fluid balance over the past 3 days while being on IV Lasix. Her metabolic alkalosis is also improved and the pH is down to 7.49. He was given a sedation holiday. He was able to follow some simple commands. I gave him a brief spontaneous breathing trial and he was getting tachycardic. Based on that the child was discontinued. Nevertheless, the patient was kept off sedation. The patient had a chest x-ray today and showed pulmonary vessel congestion and bilateral pleural effusions. He is still receiving enteral feeding for nutritional support. Cardiac rhythm is sinus. No hemodynamic instability. No fever or chills. No signs of septi cemia this point in time. Objective - Vital Signs Vital signs: Vital Signs Temp 100.4 F H 08/31/18 12:00 Pulse 91 08/31/18 12:13 Resp 22 08/31/18 12:00 BP 131/69 08/31/18 06:00 Pulse Ox 93 L 08/31/18 12:00 Intake & Output 08/30/18 08/31/18 08/31/18 18:59 06:59 18:59 Intake Total 7960.829 3430.517 458.633 Output Total 2049 1645 1730 Balance -973.782 -486.483 -1271.367 Weight 100.5 kg Intake: IV 286 362 180 0.9 Nacl @ 20 ml/hr KVO 220 240 100 Arterial Sheath pressure 66 72 30 bag ceFAZolin 1,000 mg In 50 50 Sodium Chloride 0.9% 50 ml @ 100 mls/hr IVPB Q8HR [facility] Rx#:[id number] Intake, IV Titration 92.218 250.517 134.633 Amount Magnesium Sulfate-D5w Pmx 100 100 1 gm In Dextrose/Water 1 100ml.bag @ 100 mls/hr IVPB Q1H [facility] Rx#: [id number] Propofol 1,000 mg In 92.218 150.517 34.633 Empty Bag 1 bag @ Titrate IV .Q0M [facility] Rx#: [id number] Tube Feeding 608 456 114 Other 90 90 30 Output: Urine 2049 164 1730 Other: Voiding Method Indwelling Catheter Indwelling Catheter Indwelling Catheter # Bowel Movements 1 ABP, PAP, CO, CI - Last Documented Arterial Blood Pressure 132/58 - Exam GENERAL EXAM: Sedated, intubated, obese, 78-year-old white male comfortable in no apparent distress. HEAD: Normocephalic/atraumatic. EYES: Normal reaction of pupils, equal size. Conjunctiva pink, sclera white. NOSE: Clear with pink turbinates. THROAT: No erythema or exudates. NECK: No masses, no JVD, no thyroid enlargement, no adenopathy. CHEST: No chest wall deformity. Symmetrical expansion. LUNGS: Equal air entry with no crackles, wheeze, rhonchi or dullness. CVS: Regular rate and rhythm, normal S1 and S2, no gallops, no murmurs, no rubs ABDOMEN: Soft, nontender. No hepatosplenomegaly, normal bowel sounds, no guarding or rigidity. EXTREMITIES: No clubbing, no edema, no cyanosis, 2+ pulses and upper and lower extremities. MUSCULOSKELETAL: Muscle strength and tone normal. SPINE: No scoliosis or deformity SKIN: No rashes CENTRAL NERVOUS SYSTEM: Lying simple commands as the patient is currently off sedation for now. Moving all 4 extremities. There is significant weakness in all 4 extremities as the patient is recovering from sedation. - Labs CBC & Chem 7: 08/31/18 04:19 08/31/18 08:52 Labs: Abnormal Lab Results - Last 24 Hours (Table) 08/30/18 08/30/18 08/30/18 Range/Units 11:45 15:20 20:10 WBC (3.8-10.6) k/uL RBC (4.30-5.90) m/uL Hgb (13.0-17.5) gm/dL Hct (39.0-53.0) % ABG pH (7.35-7.45) ABG pO2 (83-108) mmHg ABG HCO3 (21-25) mmol/L ABG Total CO2 (19-24) mmol/L ABG O2 Saturation (94-97) % Potassium (3.5-5.1) mmol/L BUN (9-20) mg/dL Glucose (74-99) mg/dL POC Glucose (mg/dL) 219 H 217 H 216 H (75-99) mg/dL 08/30/18 08/31/18 08/31/18 Range/Units 23:55 04:16 04:19 WBC 10.7 H (3.8-10.6) k/uL RBC 3.84 L (4.30-5.90) m/uL Hgb 11.8 L (13.0-17.5) gm/dL Hct 35.8 L (39.0-53.0) % ABG pH (7.35-7.45) ABG pO2 (83-108) mmHg ABG HCO3 (21-25) mmol/L ABG Total CO2 (19-24) mmol/L ABG O2 Saturation (94-97) % Potassium (3.5-5.1) mmol/L BUN (9-20) mg/dL Glucose (74-99) mg/dL POC Glucose (mg/dL) 201 H 137 H (75-99) mg/dL 08/31/18 08/31/18 08/31/18 Range/Units 04:19 04:45 08:50 WBC (3.8-10.6) k/uL RBC (4.30-5.90) m/uL Hgb (13.0-17.5) gm/dL Hct (39.0-53.0) % ABG pH 7.49 H (7.35-7.45) ABG pO2 66 L (83-108) mmHg ABG HCO3 26 H (21-25) mmol/L ABG Total CO2 28 H (19-24) mmol/L ABG O2 Saturation 93.1 L (94-97) % Potassium 3.1 L (3.5-5.1) mmol/L BUN 26 H (9-20) mg/dL Glucose 149 H (74-99) mg/dL POC Glucose (mg/dL) 236 H (75-99) mg/dL 08/31/18 Range/Units 12:04 WBC (3.8-10.6) k/uL RBC (4.30-5.90) m/uL Hgb (13.0-17.5) gm/dL Hct (39.0-53.0) % ABG pH (7.35-7.45) ABG pO2 (83-108) mmHg ABG HCO3 (21-25) mmol/L ABG Total CO2 (19-24) mmol/L ABG O2 Saturation (94-97) % Potassium (3.5-5.1) mmol/L BUN (9-20) mg/dL Glucose (74-99) mg/dL POC Glucose (mg/dL) 236 H (75-99) mg/dL Microbiology - Last 24 Hours (Table) 08/30/18 15:40 Gram Stain - Preliminary Sputum Sputum Culture - Preliminary 08/25/18 10:54 Blood Culture - Preliminary Blood No Growth after 120 hours 08/25/18 09:15 Blood Culture - Preliminary Blood No Growth after 120 hours Assessment and Plan Plan: #1 Acute non-ST segment elevation myocardial infarction status post stenting to the distal right coronary artery and stenting of the PDA branch of the right coronary artery with transient bradycardia requiring insertion of transvenous temporary pacemaker. He subsequently developed recurrent chest pain cardiogenic shock and was taken back to the [facility] and received stenting to the saphenous vein graft to the obtuse marginal branch of the circumflex. Insertion of intra- aortic balloon pump. Reposition of the TVP. Intubated and on mechanical ve ntilation. She remains on 3 mics of dopamine per music library assistant recommendation. The renal function is improved and normalized. The patient is maintaining his own blood pressure. CVP is around 10 the patient is started on diuretics for now. On today's evaluation of 08/29/2018, the patient remains intubated on a mechanical ventilator. Nevertheless, the patient is currently off dopamine. The patient is diuresing very nicely with IV Lasix and the patient is maintaining a negative fluid balance. Hemodynamically stable at this point in time. Should be able to cut down the PEEP gradually to maintain a saturation above 90%. On today's evaluation of 08/30/2018, I'm seeing this patient for a follow-up. The patient is improved in terms of his oxygenation. I was able to cut down the PEEP down to 10 and the patient is a negative fluid balance as the patient is being diuresed and the patient is at least 3 L in a negative fluid balance since yesterday. Tolerating diuretics well. He has developed a component of metabolic alkalosis and the patient was given 2 doses of Diamox. Repeat blood gases are to follow. Chest x-ray was noted. CAT scan of the chest done yesterday was noted. On 08/31/2018, the patient is still on a mechanical ventilator. Oxygenation is improved. Chest x-ray still showing bilateral pleural effusion and pulmonary vessel congestion. The patient is on IV Lasix. The patient is down to 5 of PEEP. The patient is hemodynamically stable at this point. He was unable to do a full spontaneous breathing trial. We'll keep him off sedation and will consider repeating the Trileptal later stage. He still has some ongoing ongoing edema and effusion and he would benefit from further diuresis. #2 Cardiogenic shock secondary to above, recovering, and the patient is currently not taking any pressors for now. #3 Previous history of coronary artery disease with coronary artery bypass grafting utilizing the GAVIRIA to the LAD, saphenous vein grafts to the diagonal and OM back in 2008. #4 acute hypoxic respiratory failure with a chest x-ray done today consistent with edema/fluid overload. The patient will be started on diuretics. Oxidation is somewhat improved compared to yesterday. Blood gases was noted. Chest x-ray was noted. The patient is diuresing and the patient is a negative fluid balance #5 Dementia. #6 Prostate cancer. #7 Previous history of pneumonia/sepsis. #8 Chronic back pain. #9 History of renal colic. #10 Hyperlipidemia. #11 Hypertension. #12 acute kidney injury, recovered #13 dementia #14 right bundle branch block pattern along with a first-degree AV block. The patient had short run of atrial fibrillation yesterday Plan: Continue the vent support. Start the patient on IV Lasix 40 mg every 8 hours. Continue monitoring the electrodes in the urine output. Keep the patient off sedation. Sedation holiday was given. He is following some simple commands. We'll check weaning parameters is a later stage and consider giving the patient another spontaneous breathing trial. If not this will be deferred till sanjeev orrow. Meanwhile, the patient is doing well. Continue rest of the supportive care. Continue enteral nutrition. Continue bronchodilators. Continue to follow up this patient. He is critically ill and this evaluation was done and more than 30 minutes. Family was updated. Time with Patient: Greater than 30
--- NOTE | 2018-08-31 13:24 | P.PN ---
Subjective 78-year-old gentleman who is seen in the ICU. Patient is currently intubated. Patient initially is transferred from another facility on 08/21/2018. He was diagnosed with non-STEMI. He went for cardiac cath and underwent successful stenting of the distal right RCA and PDA branch of the coronary artery. He developed transient occlusion of the distal branches which were opened up. Patient went into complete heart block and received transfusion his pacemaker. Patient was brought to the incentive care unit. In the ICU he developed chest discomfort again hypertension and he was a came back to the director of labor relations. He received intra-aortic balloon pump and stenting of the saphenous vein graft to the obtuse marginal branch of the circumflex. He was at this time intubated and put on ventilator. Patient is still on ventilator. Sedated On 08/29/2018 Patient intubated and sedated Weaning trial 08/30/2018 Patient still intubated Weaning trial in progress On a sedation holiday right now 08/31/2018 Patient still intubated Sugars continue to be in 200s Continue weaning trial. He was not tolerating the sedation holiday, he was put on very small amount of sedation this morning Objective - Vital Signs Vital signs: Vital Signs Temp 100.4 F H 08/31/18 12:00 Pulse 91 08/31/18 13:00 Resp 23 08/31/18 13:00 BP 131/69 08/31/18 06:00 Pulse Ox 94 L 08/31/18 13:00 Intake & Output 08/30/18 08/31/18 08/31/18 18:59 06:59 18:59 Intake Total 2026.071 6084.517 522.633 Output Total 0 1645 1855 Balance -973.782 -486.483 -1332.367 Weight 100.5 kg Intake: IV 286 362 206 0.9 Nacl @ 20 ml/hr KVO 220 240 120 Arterial Sheath pressure 66 72 36 bag ceFAZolin 1,000 mg In 50 50 Sodium Chloride 0.9% 50 ml @ 100 mls/hr IVPB Q8HR [facility] Rx#:[id number] Intake, IV Titration 92.218 250.517 134.633 Amount Magnesium Sulfate-D5w Pmx 100 100 1 gm In Dextrose/Water 1 100ml.bag @ 100 mls/hr IVPB Q1H [facility] Rx#: [id number] Propofol 1,000 mg In 92.218 150.517 34.633 Empty Bag 1 bag @ Titrate IV .Q0M [facility] Rx#: [id number] Tube Feeding 608 456 152 Other 90 90 30 Output: Urine 2049 1645 1855 Other: Voiding Method Indwelling Catheter Indwelling Catheter Indwelling Catheter # Bowel Movements 1 ABP, PAP, CO, CI - Last Documented Arterial Blood Pressure 144/65 - Exam On exam, patient intubated and sedated HEENT: Conjunctivae normal. eyes normal. NECK: No JVD. No thyroid enlargement. No LNs CARDIOVASCULAR: S1-S2 positive RESPIRATION: Breath sounds diminished in the bases. No rhonchi or crackles. No bronchial breathing. ABDOMEN: Soft, nontender . No guarding. no masses palpable. No ascites, No hepatosplenomegaly.Bowel sounds heard. LEGS: No edema. no swelling NERVOUS SYSTEM: neurological examination was not possible as the patient is intubated and sedated Skin: no ulcer no rash - Labs CBC & Chem 7: 08/31/18 04:19 08/31/18 08:52 Labs: Abnormal Lab Results - Last 24 Hours (Table) 08/30/18 08/30/18 08/30/18 Range/Units 15:20 20:10 23:55 WBC (3.8-10.6) k/uL RBC (4.30-5.90) m/uL Hgb (13.0-17.5) gm/dL Hct (39.0-53.0) % ABG pH (7.35-7.45) ABG pO2 (83-108) mmHg ABG HCO3 (21-25) mmol/L ABG Total CO2 (19-24) mmol/L ABG O2 Saturation (94-97) % Potassium (3.5-5.1) mmol/L BUN (9-20) mg/dL Glucose (74-99) mg/dL POC Glucose (mg/dL) 217 H 216 H 201 H (75-99) mg/dL 08/31/18 08/31/18 08/31/18 Range/Units 04:16 04: 04:19 WBC 10.7 H (3.8-10.6) k/uL RBC 3.84 L (4.30-5.90) m/uL Hgb 11.8 L (13.0-17.5) gm/dL Hct 35.8 L (39.0-53.0) % ABG pH (7.35-7.45) ABG pO2 (83-108) mmHg ABG HCO3 (21-25) mmol/L ABG Total CO2 (19-24) mmol/L ABG O2 Saturation (94-97) % Potassium 3.1 L (3.5-5.1) mmol/L BUN 26 H (9-20) mg/dL Glucose 149 H (74-99) mg/dL POC Glucose (mg/dL) 137 H (75-99) mg/dL 08/31/18 08/31/18 08/31/18 Range/Units 04:45 08:50 12:04 WBC (3.8-10.6) k/uL RBC (4.30-5.90) m/uL Hgb (13.0-17.5) gm/dL Hct (39.0-53.0) % ABG pH 7.49 H (7.35-7.45) ABG pO2 66 L (83-108) mmHg ABG HCO3 26 H (21-25) mmol/L ABG Total CO2 28 H (19-24) mmol/L ABG O2 Saturation 93.1 L (94-97) % Potassium (3.5-5.1) mmol/L BUN (9-20) mg/dL Glucose (74-99) mg/dL POC Glucose (mg/dL) 236 H 236 H (75-99) mg/dL Microbiology - Last 24 Hours (Table) 08/25/18 10:54 Blood Culture - Final Blood No Growth after 144 hours 08/25/18 09:15 Blood Culture - Final Blood No Growth after 144 hours 08/30/18 15:40 Gram Stain - Preliminary Sputum Sputum Culture - Preliminary Assessment and Plan Assessment: - acute respiratory failure requiring intubation - non-STEMI - Cardiogenic shock requiring balloon pump support which has been removed - Complete heart block requiring temporary venous pacemaker - Diabetes - Hyperlipidemia - Acute renal failure - NE - hypertension Plan 08/28/2018 - Continue icU and management as per zinc plating machine operator - Cardiology on board, patient recommendations - on Lasix - We'll monitor the labs - DVT and GI prophylaxis - We'll follow up on the patient 08/29/2018 Continue ventilatory support Appreciated ICU recommendations He started on Lasix 40 every 8 Cardiology is following the patient We'll continue to monitor 08/30/2018 - Continue Lasix as per cardiology - ICU management appreciated - Continue rest of the medical care - Weaning trial in progress - We will follow the patient 08/31/2018 - Continue Lasix - Weaning trial in progress - His blood sugars were high. His long-acting insulin was changed from 14 to 18 daily. we'll see how he response. - We'll continue rest of the medical care - Continue vent support at the time - We will follow with the patient
[2018-08-31 15:37] LABS: Glucose,Whole Blood 218 mg/dL (75-99)
[2018-08-31 16:29] LABS: Glucose,Whole Blood 252 mg/dL (75-99)
--- NOTE | 2018-08-31 19:36 | XR ---
EXAMINATION TYPE: XR abdomen 1V DATE OF EXAM: 08/31/2018 COMPARISON: 08/07/2017 HISTORY: Check tube placement TECHNIQUE: Single view FINDINGS: There is nasogastric tube with the tip probably in the distal stomach. Bowel gas pattern is nonacute. IMPRESSION: NG tube tip is probably in the distal stomach.
--- NOTE | 2018-08-31 19:38 | XR ---
EXAMINATION TYPE: XR chest 1V portable DATE OF EXAM: 08/31/2018 COMPARISON: Today HISTORY: Check tube placement TECHNIQUE: Single frontal view of the chest is obtained. FINDINGS: There is endotracheal tube with the tip at the origin right main stem bronchus. Nasogastri c tube is not well seen but is probably in the stomach. There is pulmonary vascular congestion. There are sternal wires. There are chest leads. There is left central venous catheter with the tip in the superior vena cava. IMPRESSION: Congestive heart failure. Pleural effusions. Malposition of the endotracheal tube. Tube should be pulled back 4 cm.
[2018-08-31 20:01] LABS: Glucose,Whole Blood 171 mg/dL (75-99)
--- NOTE | 2018-08-31 21:48 | XR ---
EXAMINATION TYPE: XR chest 1V DATE OF EXAM: 08/31/2018 COMPARISON: 08/31/2018 HISTORY: Check tube placement TECHNIQUE: Single frontal view of the chest is obtained. FINDINGS: There is endotracheal tube with the tip approximately 2 cm from the ricco. Detail is limi nevaeh. There is no gross heart failure. There is left jugular catheter with the tip in the superior hetal a cava. There are chest leads. There are sternal wires. There is mild blunting of the costophrenic an gles. IMPRESSION: Endotracheal tube is in improved position. There is improvement in the congestive heart failure compared to exam 2 hours ago.
[2018-08-31 23:57] LABS: Glucose,Whole Blood 149 mg/dL (75-99)
[2018-09-01] MEDS: INSULIN ASPART (NovoLOG) 100 UNIT/ML VIAL SQ SCH ×6 (00:06→20:56)
[2018-09-01] MEDS: PROPOFOL 1,000 MG in EMPTY BAG 1 BAG IV SCH ×2 (00:06→04:10)
[2018-09-01] MEDS: HEPARIN SODIUM,PORCINE 5,000 UNIT/ML 1 ML VIAL SQ SCH ×3 (00:06→19:16)
[2018-09-01] MEDS: IPRATROPIUM-ALBUTEROL 3 ML NEB INHALATION SCH ×5 (03:20→19:34)
[2018-09-01 04:01] LABS: Glucose,Whole Blood 251 mg/dL (75-99)
[2018-09-01 04:48] LABS: ABG Base Excess 0.8 mmol/L; ABG HCO3 25 mmol/L (21-25); ABG PCO2 34 mmHg (35-45); ABG PH 7.47 (7.35-7.45); ABG TCO2 26 mmol/L (19-24); Allen Test Performed? Yes
[2018-09-01 04:48] LABS: HGB 11.5 gm/dL (13.0-17.5); MCH 30.3 pg (25.0-35.0); MCHC 32.9 g/dL (31.0-37.0); MCV 92.1 fL (80.0-100.0); Mean Platelet Volume 9.3; Platelet Count 244 k/uL (150-450); RDW 14.6 % (11.5-15.5); WBC 13.3 k/uL (3.8-10.6)
[2018-09-01 04:50] LABS: ABG PO2 55 mmHg (83-108)
[2018-09-01 04:59] LABS: African American GFR (CKD) >90 (>60 ml/min/1.73 sqM); Anion Gap 10 mmol/L; Blood Urea Nitrogen 27 mg/dL (9-20); Calcium 8.5 mg/dL (8.4-10.2); Carbon Dioxide 24 mmol/L (22-30); Chloride 105 mmol/L (98-107); Glucose 249 mg/dL (74-99); Magnesium 2.1 mg/dL (1.6-2.3); Potassium 3.8 mmol/L (3.5-5.1); Sodium 139 mmol/L (137-145)
[2018-09-01] MEDS ORDERED: POTASSIUM BICARBONATE/CIT AC 20 MEQ TABLET.EFF NG-TUBE SCH ×2 (06:00→13:00)
[2018-09-01] MEDS: INSULIN DETEMIR (LEVEMIR) 100 UNIT/ML SYR SQ SCH (08:07)
[2018-09-01] MEDS: CHLORHEXIDINE GLUCONATE 15 ML CUP MUCOUS MEM SCH (08:14)
[2018-09-01] MEDS: PANTOPRAZOLE 40 MG/10 ML VIAL IVP SCH (08:14)
[2018-09-01 08:15] LABS: Glucose,Whole Blood 241 mg/dL (75-99)
[2018-09-01] MEDS: ASPIRIN 81 MG PO SCH (08:15)
[2018-09-01] MEDS: MULTIVITAMINS, THERA 1 EACH TAB PO SCH (08:15)
[2018-09-01] MEDS: SPIRONOLACTONE 25 MG TAB PO SCH (08:15)
[2018-09-01] MEDS: ATORVASTATIN 40 MG TAB PO SCH (08:15)
[2018-09-01] MEDS: amLODIPine 5 MG TAB PO SCH (08:15)
[2018-09-01] MEDS: LISINOPRIL 5 MG TAB PO SCH ×2 (08:15→21:05)
[2018-09-01] MEDS: METOPROLOL TARTRATE 25 MG TAB PO SCH ×2 (08:25→21:05)
--- NOTE | 2018-09-01 08:39 | PN ---
PROGRESS NOTE Mr. Vega is an 78-year-old male, status post coronary artery bypass grafting, who presented with non ST-segment elevation myocardial infarction, underwent multivessel stenting by Dr. Pearson and Dr. Taylor. He had a temporary pacemaker placed because of transient complete heart block. He remains intubated and sedated. Hemodynamically stable. He had no evidence of further complete AV block or ventricle arrhythmia. A trial of weaning yesterday was performed. Patient became agitated and that was stopped, but he was able according to the notes to follow simple commands. He continues to be at this point on aspirin once a day, amlodipine 5 mg daily, Lipitor 40 mg daily, Plavix 75 mg daily, Lasix 40 mg IV q.12 hours, subcu heparin, lisinopril 5 mg twice a day, spironolactone 25 mg daily. PHYSICAL EXAMINATION: Blood pressure running in the 120s with a heart rate in the 80s. LUNGS: Clear anteriorly. HEART: Regular rate and rhythm, S1, S2. No S3. No rub. ABDOMEN: Soft, obese. Positive bowel sounds. EXTREMITIES: No significant edema. LAB DATA: Revealed a hemoglobin of 11.5, BUN creatinine 27 and 0.88, potassium 3.8. IMPRESSION: 1. Status post non ST-segment elevation myocardial infarction with multivessel stenting. 2. Respiratory failure. 3. Transient complete heart block, resolved with underlying right bundle branch block, left axis deviation. 4. Mild cardiomyopathy. 5. Status post coronary artery bypass grafting. 6. History of hyperlipidemia. RECOMMENDATION: I will add to his regimen low-dose beta robert and see if there is any evidence of recurrent AV block that may require permanent pacemaker implantation. Will continue to attempt to wean him and extubate him. Will follow his renal function and depending on his progress, further recommendation will be made. MMODL / IJN: [id number] /
--- NOTE | 2018-09-01 08:39 | XR ---
EXAMINATION TYPE: XR chest 1V portable DATE OF EXAM: 09/01/2018 COMPARISON: 08/31/2018 HISTORY: Shortness of breath TECHNIQUE: Single frontal view of the chest is obtained. FINDINGS: Bilateral consolidation, cardiomegaly, pleural effusion stable. Postoperative change and c entral line are noted. ET tube again appears low proximally centimeter above the ricco. NG tube stab le. Arthropathy of the shoulders. IMPRESSION: 1. Diffuse pleural-parenchymal changes correlate for CHF versus pneumonia. 2. ET tube again appears low approximately 1 cm above the ricco.
[2018-09-01] MEDS: FUROSEMIDE 10 MG/ML 4 ML VIAL IV SCH ×2 (09:10→21:01)
[2018-09-01] MEDS: PREVAGEN PO SCH (09:17)
[2018-09-01] MEDS: CLOPIDOGREL 75 MG TAB PO SCH (10:50)
--- NOTE | 2018-09-01 11:09 | US ---
EXAMINATION TYPE: US chest DATE OF EXAM: 09/01/2018 COMPARISON: Radiograph 09/01/2018 CLINICAL HISTORY: 78-year-old male Hypoxemia, effusions. TECHNIQUE: Targeted ultrasound of the posterior lower bilateral chest. FINDINGS: EXAM MEASUREMENTS: Right Pleural Effusion pocket size: 3.0 cm Right skin surface to fluid distance: 5.7 cm Left Pleural Effusion pocket size: 2.6 cm Left skin surface to fluid distance: 4.6 cm Right side was not marked for possible thoracentesis outside the dept. Left side was not marked for possible thoracentesis outside the dept. Pulmonologists are able to review the images in the patient?s EMR. IMPRESSIONS: Small bilateral pleural effusions. Markings were not performed.
[2018-09-01 11:55] LABS: Glucose,Whole Blood 205 mg/dL (75-99)
[2018-09-01] MEDS: ACETAMINOPHEN TAB 325 MG TAB PO PRN (14:35)
[2018-09-01] MEDS ORDERED: VANCOMYCIN IV PER PHARMACY 1 EACH MISC MISCELLANE PRN (14:57)
--- NOTE | 2018-09-01 15:13 | P.PN ---
Subjective Progress Note Date: 09/01/18 There is evaluation of 08/28/2018 I'm seeing this patient for a follow-up. This patient is known to have coronary artery disease and the patient came an acute non-STEMI and the patient underwent a emergent stenting of the RCA and subsequently had to be taken back to the [facility] where the patient underwent stenting of the PDA branch of the RCA and PCI and stenting of the saphenous vein graft to up to is marginal. The patient's course was complicated by cardiogenic shock from which the patient recovered and intra-aortic balloon pump was removed. He also developed acute kidney injury from which she recovered. The patient is known to have diabetes mellitus type 2, prostate cancer, chronic back pain, hyperlipidemia, hypertension and previous history of dementia. The patient remains intubated on a mechanical ventilator. This morning the patient and assist control mode of ventilation with a rate of 16 with a tidal volume of 450-50% with a PEEP of 16. Note That Earlier This Morning Showed a pH of 7.50 with a PCO2 of 36 and PO2 of 56. The Chest X-Ray from Today from Today Showing Adequate Positioning of the ET Tube. No Evidence of Any Pneumothorax. There is bibasilar pulmonary infiltrates seen. The patient's CVP was around 10. I started him on Lasix if he was started on Lasix 40 mg IV every 8 hours. Meanwhile, the patient's rhythm was slightly tachycardic today. EKG was done a nd the patient was found to have right bundle branch block pattern within a A. fib rhythm. The patient is currently on dopamine at 3 g per KG per minute. His renal function is improved. He is afebrile. He is tolerating his tube feeds which is at goal with vital high protein at the rate of 30 mL an hour. He is producing adequate amount of urine output. The patient is afebrile. The patient is maintaining a normal renal function at creatinine of 0.8. The acute kidney injury is improved. No significant leukocytosis. No other significant events overnight otherwise for now. On 08/29/2018, the patient remains sedated and abated on a mechanical ventilator. Vent settings with a tidal volume of 450 with a PEEP of 16 FiO2 of 50% and a rate of 16. Chest x-ray shows no significant change. The patient was started on diuretics yesterday with Lasix 40 mg IV push every 8 hours and the patient is a negative fluid balance. Pulse ox on the monitor his in the order of 97% and based on that the patient was dropped down to 14 of PEEP and later on down to 12 of PEEP maintaining a saturation above 90%. IV fluids have been cut to KVO. The patient is a negative fluid balance. The patient is in a first- degree AV block with a RBBB pattern and the dopamine drip has been discontinued. Blood pressure has picked up nicely. The patient is receiving enteral feeding for nutritional support. No fever. No chills no leukocytosis. Blood gases from today showed a pH of 7.53 with a pCO2 of 42 and pO2 of 90 and this was done on above-mentioned vent setting. The patient has a stable white count of 10.7. Hemoglobin is at 11.3. No other significant events over the past 24 hours. Creatinine is also stable at 0.8. On today's evaluation of 08/30/2018 I'm seeing this patient for a follow-up. The patient remains on a mechanical ventilator. The patient is being diuresis for now with IV Lasix and the patient remains in a negative fluid balance. He is producing excess amount of urine output. His oxidation is improved. Or the past 24 hours and was able to cut down the PEEP to 10. I repeated the blood gas today and showed a pH of 7.51 with a pCO2 of 38 and pO2 72. Note that the bobo ieleila was given 2 doses of Diamox yesterday. That fluid balance is negative more than 3 and half liters over the past 24 hours. The chest x-ray from today shows bilateral pleural effusion and atelectatic changes in lung bases bilaterally. Similar finding was also seen on the CAT scan of the chest that was done yesterday. No fever. No chills. Pro calcitonin level was slightly elevated. The patient is afebrile. The patient is hemodynamically stable and tolerating the diuretics very well. I'm also going to give this patient a sedation holiday. Sedation was stopped this morning and were monitoring his mental status very closely. His cardiac rhythm is sinus at this point in time. On 08/31/2018 I'm seeing this patient for a follow-up. The patient remains on a mechanical ventilator. Oxygenation is improved. The patient is currently down to 5 of PEEP. The morning blood gases while being on assist control mode at the rate of 14 with a tidal volume of 450 and FiO2 of 40% with a PEEP of 5 showed a pH of 7.49 with a pCO2 of 35 and pO2 of 66. The patient is producing good amount of urine output. In fact he has been in a negative fluid balance over the past 3 days while being on IV Lasix. Her metabolic alkalosis is also improved and the pH is down to 7.49. He was given a sedation holiday. He was able to follow some simple commands. I gave him a brief spontaneous breathing trial and he was getting tachycardic. Based on that the child was discontinued. Nevertheless, the patient was kept off sedation. The patient had a chest x-ray today and showed pulmonary vessel congestion and bilateral pleural effusions. He is still receiving enteral feeding for nutritional support. Cardiac rhythm is sinus. No hemodynamic instability. No fever or chills. No signs of septi cemia this point in time. On 09/01/2018, patient was again taken off sedation. After monitoring this patient for another 3 hours while off the sedation, the patient was switched to a pressure support of 5 and a PEEP of 5 and the patient was given as pertains breathing trial for around 30 minutes. At that point, he seems to be quite alert and awake and he was tolerating the trial without any major difficulties and I decide to extubate the patient a nasal cannula. Note that the sputum sample this was collected earlier is showing MRSA. He chest x-ray still showing some haziness in lung bases bilaterally. I thought that this was effusion and for that reason ultrasound of the chest was ordered and based on ultrasound amount of effusion is minimal at this point in time. The patient is being diuresis with IV Lasix. The patient is also on Diamox. The patient is doing well. He has an excellent urine output. He remains negative fluid balance. He was receiving enteral feeding for nutritional support and post extubation the patient was kept with his NG tube in place for oral feeds and medications. His cardiac rhythm is sinus. He is afebrile. No other significant events overnight . Objective - Vital Signs Vital signs: Vital Signs Temp 99.5 F 09/01/18 12:00 Pulse 93 09/01/18 14:00 Resp 23 09/01/18 14:00 BP 131/72 09/01/18 14:00 Pulse Ox 89 L 09/01/18 14:00 Intake & Output 0709/01/18 09/01/18 18:59 06:59 18:59 Intake Total 953.427 623.134 409.662 Output Total 2285 2085 760 Balance -1331.573 -1461.866 -350.338 Weight 100.3 kg 100.3 kg Intake: IV 336 312 182 0.9 Nacl @ 20 ml/hr KVO 220 240 140 Arterial Sheath pressure 66 72 42 bag ceFAZolin 1,000 mg In 50 Sodium Chloride 0.9% 50 ml @ 100 mls/hr IVPB Q8HR AALIYAH Rx#:[id number] Intake, IV Titration 215.427 167.134 83.662 Amount Magnesium Sulfate-D5w Pmx 100 1 gm In Dextrose/Water 1 100ml.bag @ 100 mls/hr IVPB Q1H AALIYAH Rx#: [id number] Propofol 1,000 mg In 115.427 167.134 83.662 Empty Bag 1 bag @ Titrate IV .Q0M AALIYAH Rx#: [id number] Tube Feeding 342 114 114 Other 60 30 30 Output: Urine 2285 2085 760 Other: Voiding Method Indwelling Catheter Indwelling Catheter Indwelling Catheter # Bowel Movements 1 ABP, PAP, CO, CI - Last Documented Arterial Blood Pressure 129/58 - Exam GENERAL EXAM: Calm and comfortable and the patient is extubated to nasal cannula , the patient still has an NG tube in place of his right nostril HEAD: Normocephalic/atraumatic. EYES: Normal reaction of pupils, equal size. Conjunctiva pink, sclera white. NOSE: Clear with pink turbinates. THROAT: No erythema or exudates. NECK: No masses, no JVD, no thyroid enlargement, no adenopathy. CHEST: No chest wall deformity. Symmetrical expansion. LUNGS: Equal air entry with no crackles, wheeze, rhonchi or dullness. CVS: Regular rate and rhythm, normal S1 and S2, no gallops, no murmurs, no rubs ABDOMEN: Soft, nontender. No hepatosplenomegaly, normal bowel sounds, no guarding or rigidity. EXTREMITIES: No clubbing, no edema, no cyanosis, 2+ pulses and upper and lower extremities. MUSCULOSKELETAL: Muscle strength and tone normal. SPINE: No scoliosis or deformity SKIN: No rashes CENTRAL NERVOUS SYSTEM: Awake and alert and there is no focal neurological deficit. - Labs CBC & Chem 7: 07/05/19 04:15 09/01/18 11:52 Labs: Abnormal Lab Results - Last 24 Hours (Table) 08/31/18 08/31/18 08/31/18 Range/Units 15:31 15:35 16:26 WBC (3.8-10.6) k/uL RBC (4.30-5.90) m/uL Hgb (13.0-17.5) gm/dL Hct (39.0-53.0) % ABG pH (7.35-7.45) ABG pCO2 (35-45) mmHg ABG pO2 (83-108) mmHg ABG Total CO2 (19-24) mmol/L ABG O2 Saturation (94-97) % Potassium 3.4 L (3.5-5.1) mmol/L BUN (9-20) mg/dL Glucose (74-99) mg/dL POC Glucose (mg/dL) 218 H 252 H (75-99) mg/dL 08/31/18 08/31/18 09/01/18 Range/Units 19:58 23:52 03:58 WBC (3.8-10.6) k/uL RBC (4.30-5.90) m/uL Hgb (13.0-17.5) gm/dL Hct (39.0-53.0) % ABG pH (7.35-7.45) ABG pCO2 (35-45) mmHg ABG pO2 (83-108) mmHg ABG Total CO2 (19-24) mmol/L ABG O2 Saturation (94-97) % Potassium (3.5-5.1) mmol/L BUN (9-20) mg/dL Glucose (74-99) mg/dL POC Glucose (mg/dL) 171 H 149 H 251 H (75-99) mg/dL 09/01/18 09/01/18 09/01/18 Range/Units 04:15 04:15 04:45 WBC 13.3 H (3.8-10.6) k/uL RBC 3.80 L (4.30-5.90) m/uL Hgb 11.5 L (13.0-17.5) gm/dL Hct 35.0 L (39.0-53.0) % ABG pH 7.47 H (7.35-7.45) ABG pCO2 34 L (35-45) mmHg ABG pO2 55 L* (83-108) mmHg ABG Total CO2 26 H (19-24) mmol/L ABG O2 Saturation 89.0 L (94-97) % Potassium (3.5-5.1) mmol/L BUN 27 H (9-20) mg/dL Glucose 249 H (74-99) mg/dL POC Glucose (mg/dL) (75-99) mg/dL 09/01/18 09/01/18 Range/Units 07:59 11:51 WBC (3.8-10.6) k/uL RBC (4.30-5.90) m/uL Hgb (13.0-17.5) gm/dL Hct (39.0-53.0) % ABG pH (7.35-7.45) ABG pCO2 (35-45) mmHg ABG pO2 (83-108) mmHg ABG Total CO2 (19-24) mmol/L ABG O2 Saturation (94-97) % Potassium (3.5-5.1) mmol/L BUN (9-20) mg/dL Glucose (74-99) mg/dL POC Glucose (mg/dL) 241 H 205 H (75-99) mg/dL Microbiology - Last 24 Hours (Table) 08/30/18 15:40 Gram Stain - Final Sputum Sputum Culture - Final Methicillin resist S. aureus 08/25/18 10:54 Blood Culture - Final Blood No Growth after 144 hours 08/25/18 09:15 Blood Culture - Final Blood No Growth after 144 hours Assessment and Plan Plan: #1 Acute non-ST segment elevation myocardial infarction status post stenting to the distal right coronary artery and stenting of the PDA branch of the right coronary artery with transient bradycardia requiring insertion of transvenous temporary pacemaker. He subsequently developed recurrent chest pain cardiogenic shock and was taken back to the [facility] and received stenting to the saphenous vein graft to the obtuse marginal branch of the circumflex. Insertion of intra- aortic balloon pump. Reposition of the TVP. Intubated and on mechanical ventilation. She remains on 3 mics of dopamine per theatrical agent recommendation. The renal function is improved and normalized. The patient is maintaining his own blood pressure. CVP is around 10 the patient is started on diuretics for now. On today's evaluation of 08/29/2018, the patient remains intubated on a mechanical ventilator. Nevertheless, the patient is currently off dopamine. The patient is diuresing very nicely with IV Lasix and the patient is maintaining a negative fluid balance. Hemodynamically stable at this point in time. Should be able to cut down the PEEP gradually to maintain a saturation above 90%. On today's evaluation of 08/30/2018, I'm seeing this patient for a follow-up. The patient is improved in terms of his oxygenation. I was able to cut down the PEEP down to 10 and the patient is a negative fluid balance as the patient is being diuresed and the patient is at least 3 L in a negative fluid balance since yesterday. Tolerating diuretics well. He has developed a component of metabolic alkalosis and the patient was given 2 doses of Diamox. Repeat blood gases are to follow. Chest x-ray was noted. CAT scan of the chest done yesterday was noted. On 08/31/2018, the patient is still on a mechanical ventilator. Oxygenation is improved. Chest x-ray still showing bilateral pleural effusion and pulmonary vessel congestion. The patient is on IV Lasix. The patient is down to 5 of PEEP. The patient is hemodynamically stable at this point. He was unable to do a full spontaneous breathing trial. We'll keep him off sedation and will consider repeating the Trileptal later stage. He still has some ongoing ongoing edema and effusion and he would benefit from further diuresis. On 09/01/2018, the patient is extubated. History of any chest pain. He was extubated to nasal cannula. Hemodynamically stable. Cardiac rhythm is stable. #2 Cardiogenic shock secondary to above, recovering, and the patient is currently not taking any pressors for now. #3 Previous history of coronary artery disease with coronary artery bypass graft ing utilizing the GAVIRIA to the LAD, saphenous vein grafts to the diagonal and OM back in 2008. #4 acute hypoxic respiratory failure improved considerably as the patient was weaned off the mechanical ventilator and the patient was extubated today. He currently is on a nasal cannula. His chest x-ray still showing some nasal passages lung bases which is probably combination of effusion/atelectasis. Ultrasound of the chest was done and there is no sizable effusion at this point in time. He does have some staph aureus in the sputum and the patient was started on vancomycin. #5 Dementia. #6 Prostate cancer. #7 Previous history of pneumonia/sepsis. #8 Chronic back pain. #9 History of renal colic. #10 Hyperlipidemia. #11 Hypertension. #12 acute kidney injury, recovered #13 dementia #14 right bundle branch block pattern along with a first-degree AV block. The patient had short run of atrial fibrillation yesterday Plan: The patient is extubated. Continue diuretics for another 24 hours. Continue monitoring this patient's pulmonary status and wean down the FiO2 as tolerated t o maintain a saturation above 90%. Provide the patient incentive spirometer. Add vancomycin. Keep the NG tube in place for another 24 hours to make sure that the patient is able to swallow appropriately. His condition is still critical. The patient has done a big step where he was extubated off the mechanical ventilator after being intubated on a mechanical ventilator for more than 7 days. We'll continue to follow. Make further recommendations based on his progress. This evaluation was done and more than 30 minutes. Time with Patient: Greater than 30
[2018-09-01] MEDS ORDERED: VANCOMYCIN 2,000 MG in SODIUM CHLORIDE 0.9% 500 ML 500 ML IVPB ONE (15:15)
--- NOTE | 2018-09-01 16:42 | P.PN ---
Subjective 78-year-old gentleman who is seen in the ICU. Patient is currently intubated. Patient initially is transferred from another facility on 08/21/2018. He was diagnosed with non-STEMI. He went for cardiac cath and underwent successful stenting of the distal right RCA and PDA branch of the coronary artery. He developed transient occlusion of the distal branches which were opened up. Patient went into complete heart block and received transfusion his pacemaker. Patient was brought to the incentive care unit. In the ICU he developed chest discomfort again hypertension and he was a came back to the [facility]. He received intra-aortic balloon pump and stenting of the saphenous vein graft to the obtuse marginal branch of the circumflex. He was at this time intubated and put on ventilator. Patient is still on ventilator. Sedated On 08/29/2018 Patient intubated and sedated Weaning trial 08/30/2018 Patient still intubated Weaning trial in progress On a sedation holiday right now 08/31/2018 Patient still intubated Sugars continue to be in 200s Continue weaning trial. He was not tolerating the sedation holiday, he was put on very small amount of sedation this morning 09/01/2018 Patient extubated today Patient on diuresis Objective - Vital Signs Vital signs: Vital Signs Temp 99.5 F 09/01/18 12:00 Pulse 89 09/01/18 16:16 Resp 20 09/01/18 15:30 BP 113/60 09/01/18 15:30 Pulse Ox 89 L 09/01/18 15:30 Intake & Output 08/31/18 09/01/18 09/01/18 18:59 06:59 18:59 Intake Total 953.427 623.134 461.662 Output Total 2285 2085 820 Balance -1331.573 -1461.866 -358.338 Weight 100.3 kg 100.3 kg Intake: IV 336 312 234 0.9 Nacl @ 20 ml/hr KVO 220 240 180 Arterial Sheath pressure 66 72 54 bag ceFAZolin 1,000 mg In 50 Sodium Chloride 0.9% 50 ml @ 100 mls/hr IVPB Q8HR [facility] Rx#:[id number] Intake, IV Titration 215.427 167.134 83.662 Amount Magnesium Sulfate-D5w Pmx 100 1 gm In Dextrose/Water 1 100ml.bag @ 100 mls/hr IVPB Q1H [facility] Rx#: [id number] Propofol 1,000 mg In 115.427 167.134 83.662 Empty Bag 1 bag @ Titrate IV .Q0M AALIYAH Rx#: [id number] Tube Feeding 342 114 114 Other 60 30 30 Output: Urine 2285 2085 820 Other: Voiding Method Indwelling Catheter Indwelling Catheter Indwelling Catheter # Bowel Movements 1 ABP, PAP, CO, CI - Last Documented Arterial Blood Pressure 119/53 - Exam On exam, patient extubated, awake NECK: No JVD. No thyroid enlargement. No LNs CARDIOVASCULAR: S1-S2 positive RESPIRATION: Breath sounds diminished in the bases. No rhonchi or crackles. No bronchial breathing. ABDOMEN: Soft, nontender . No guarding. no masses palpable. No ascites, No hepatosplenomegaly.Bowel sounds heard. LEGS: No edema. no swelling NERVOUS SYSTEM: Patient is extubated. Patient is awake and shows no focal neuro logical deficits Skin: no ulcer no rash - Labs CBC & Chem 7: 09/01/18 04:15 09/01/18 11:52 Labs: Abnormal Lab Results - Last 24 Hours (Table) 08/31/18 08/31/18 09/01/18 Range/Units 19:58 23:52 03:58 WBC (3.8-10.6) k/uL RBC (4.30-5.90) m/uL Hgb (13.0-17.5) gm/dL Hct (39.0-53.0) % ABG pH (7.35-7.45) ABG pCO2 (35-45) mmHg ABG pO2 (83-108) mmHg ABG Total CO2 (19-24) mmol/L ABG O2 Saturation (94-97) % BUN (9-20) mg/dL Glucose (74-99) mg/dL POC Glucose (mg/dL) 171 H 149 H 251 H (75-99) mg/dL 09/01/18 09/01/18 09/01/18 Range/Units 04:15 04:15 04:45 WBC 13.3 H (3.8-10.6) k/uL RBC 3.80 L (4.30-5.90) m/uL Hgb 11.5 L (13.0-17.5) gm/dL Hct 35.0 L (39.0-53.0) % ABG pH 7.47 H (7.35-7.45) ABG pCO2 34 L (35-45) mmHg ABG pO2 55 L* (83-108) mmHg ABG Total CO2 26 H (19-24) mmol/L ABG O2 Saturation 89.0 L (94-97) % BUN 27 H (9-20) mg/dL Glucose 249 H (74-99) mg/dL POC Glucose (mg/dL) (75-99) mg/dL 09/01/18 09/01/18 Range/Units 07:59 11:51 WBC (3.8-10.6) k/uL RBC (4.30-5.90) m/uL Hgb (13.0-17.5) gm/dL Hct (39.0-53.0) % ABG pH (7.35-7.45) ABG pCO2 (35-45) mmHg ABG pO2 (83-108) mmHg ABG Total CO2 (19-24) mmol/L ABG O2 Saturation (94-97) % BUN (9-20) mg/dL Glucose (74-99) mg/dL POC Glucose (mg/dL) 241 H 205 H (75-99) mg/dL Microbiology - Last 24 Hours (Table) 08/30/18 15:40 Gram Stain - Final Sputum Sputum Culture - Final Methicillin resist S. aureus 08/25/18 10:54 Blood Culture - Final Blood No Growth after 144 hours 08/25/18 09:15 Blood Culture - Final Blood No Growth after 144 hours Assessment and Plan Assessment: - acute respiratory failure requiring intubation now extubated - non-STEMI - Cardiogenic shock requiring balloon pump support which has been removed - Complete heart block requiring temporary venous pacemaker - Diabetes - Hyperlipidemia - Acute renal failure - NE - hypertension Plan 08/28/2018 - Continue icU and management as per pillow cleaner - Cardiology on board, patient recommendations - on Lasix - We'll monitor the labs - DVT and GI prophylaxis - We'll follow up on the patient 08/29/2018 Continue ventilatory support Appreciated ICU recommendations He started on Lasix 40 every 8 Cardiology is following the patient We'll continue to monitor 08/30/2018 - Continue Lasix as per cardiology - ICU management appreciated - Continue rest of the medical care - Weaning trial in progress - We will follow the patient 08/31/2018 - Continue Lasix - Weaning trial in progress - His blood sugars were high. His long-acting insulin was changed from 14 to 18 daily. we'll see how he response. - We'll continue rest of the medical care - Continue vent support at the time - We will follow with the patient 09/01/2018 - Patient extubated today - Continue Lasix - Continue blood sugar control. His Lantus was increased from 14-18 units this morning - Continue rest of the medical care - We'll follow up on the patient
[2018-09-01 17:27] LABS: Glucose,Whole Blood 128 mg/dL (75-99)
[2018-09-01 19:58] LABS: Glucose,Whole Blood 121 mg/dL (75-99)
[2018-09-02 00:19] LABS: Glucose,Whole Blood 160 mg/dL (75-99)
[2018-09-02] MEDS: INSULIN ASPART (NovoLOG) 100 UNIT/ML VIAL SQ SCH ×7 (00:20→23:44)
[2018-09-02] MEDS: HEPARIN SODIUM,PORCINE 5,000 UNIT/ML 1 ML VIAL SQ SCH ×4 (00:21→23:38)
[2018-09-02 03:42] LABS: Glucose,Whole Blood 130 mg/dL (75-99)
[2018-09-02 05:36] LABS: HCT 38.6 % (39.0-53.0); HGB 12.6 gm/dL (13.0-17.5); MCH 30.7 pg (25.0-35.0); MCHC 32.7 g/dL (31.0-37.0); MCV 93.8 fL (80.0-100.0); Mean Platelet Volume 9.3; Platelet Count 285 k/uL (150-450); RBC 4.11 m/uL (4.30-5.90); RDW 15.8 % (11.5-15.5); WBC 18.2 k/uL (3.8-10.6)
[2018-09-02 05:49] LABS: African American GFR (CKD) >90 (>60 ml/min/1.73 sqM); Anion Gap 11 mmol/L; Blood Urea Nitrogen 26 mg/dL (9-20); Calcium 8.9 mg/dL (8.4-10.2); Carbon Dioxide 22 mmol/L (22-30); Chloride 109 mmol/L (98-107); Glucose 140 mg/dL (74-99); Potassium 3.3 mmol/L (3.5-5.1); Sodium 142 mmol/L (137-145)
[2018-09-02] MEDS: POTASSIUM BICARBONATE/CIT AC 20 MEQ TABLET.EFF NG-TUBE SCH (06:29)
[2018-09-02] MEDS: FUROSEMIDE 10 MG/ML 4 ML VIAL IV SCH ×2 (07:15→20:21)
[2018-09-02] MEDS: IPRATROPIUM-ALBUTEROL 3 ML NEB INHALATION SCH ×4 (07:16→19:52)
--- NOTE | 2018-09-02 07:18 | XR ---
EXAMINATION TYPE: XR chest 1V portable DATE OF EXAM: 09/02/2018 COMPARISON: 09/01/2018 HISTORY: Tube placement TECHNIQUE: Single frontal view of the chest is obtained. FINDINGS: There is no focal air space opacity, pleural effusion, or pneumothorax seen. The cardiac silhouette size is within normal limits. The osseous structures are intact. IMPRESSION: No acute process. Bilateral consolidation, cardiomegaly, pleural effusion stable. Postoperative change and central line are noted. ET tube again appears 4.5 centimeter above the ricco. NG tube stable. Arthropathy of the shoulders. IMPRESSION: 1. Diffuse pleural-parenchymal changes correlate for CHF versus pneumonia. 2. ET tube appears in good position.
[2018-09-02 07:20] LABS: ABG Base Excess -3.2 mmol/L; ABG HCO3 21 mmol/L (21-25); ABG Oxygen Saturation 90.4 % (94-97); ABG PCO2 32 mmHg (35-45); ABG PH 7.43 (7.35-7.45); ABG PO2 60 mmHg (83-108); ABG TCO2 22 mmol/L (19-24); Allen Test Performed? Yes
[2018-09-02 07:57] LABS: Glucose,Whole Blood 162 mg/dL (75-99)
[2018-09-02] MEDS ORDERED: VANCOMYCIN 1,500 MG in SODIUM CHLORIDE 0.9% 250 ML IVPB SCH (08:00)
[2018-09-02] MEDS: POTASSIUM CHLORIDE 20 MEQ in WATER FOR INJECTION 1 100ML.BAG IVPB SCH ×4 (08:19→16:37)
[2018-09-02] MEDS: PANTOPRAZOLE 40 MG/10 ML VIAL IVP SCH (08:20)
[2018-09-02] MEDS: INSULIN DETEMIR (LEVEMIR) 100 UNIT/ML SYR SQ SCH (08:38)
[2018-09-02] MEDS: amLODIPine 5 MG TAB PO SCH (08:44)
[2018-09-02] MEDS: ASPIRIN 81 MG PO SCH (08:44)
[2018-09-02] MEDS: METOPROLOL TARTRATE 25 MG TAB PO SCH ×2 (08:45→20:10)
[2018-09-02] MEDS: ATORVASTATIN 40 MG TAB PO SCH (08:45)
[2018-09-02] MEDS: LISINOPRIL 5 MG TAB PO SCH ×2 (08:45→20:10)
[2018-09-02] MEDS: MULTIVITAMINS, THERA 1 EACH TAB PO SCH (08:45)
[2018-09-02] MEDS: CLOPIDOGREL 75 MG TAB PO SCH (08:45)
[2018-09-02] MEDS: SPIRONOLACTONE 25 MG TAB PO SCH (08:45)
[2018-09-02] MEDS: PREVAGEN PO SCH (08:45)
--- NOTE | 2018-09-02 08:54 | PN ---
PROGRESS NOTE Mr. Vega is an 78-year-old male who presented with a non ST-segment elevation myocardial infarction, status post coronary artery bypass grafting, underwent multivessel stenting. He had an episode of complete heart block requiring temporary pacemaker that was recently removed. He had respiratory failure. He was extubated yesterday. He is awake, following commands, but weak and not answering questions. He is tachypneic this morning. His blood pressure and heart rate has been stable. He has no evidence of ventricular arrhythmia. He continues to be on aspirin once a day, Plavix 75 mg daily, amlodipine 5 mg daily, Diamox 250 q.12 hours, Lipitor 40 mg daily, Lasix 40 mg IV q.12 hours, lisinopril 5 mg twice a day, metoprolol tartrate 25 mg twice a day, spironolactone 25 mg daily. PHYSICAL EXAMINATION: Blood pressure 140/70 with a heart rate in the high 90s. LUNGS: With decreased air exchange bilaterally and with scattered wheezes. HEART: Regular rate and rhythm S1, S2. No S3 with systolic murmur at the base. No diastolic murmur. No rub. ABDOMEN: Soft, nontender, obese. Extremities: No significant edema. LAB DATA: Lab data revealed a pH 7.43, PO2 of 60, pCO2 32, potassium 3.3, BUN and creatinine 26 and 0.89. Hemoglobin of 12.6, white blood cell of 18.2. His urine output has been good. His chest x-ray is showing signs of congestion. The possibility of infiltrate cannot be totally excluded. IMPRESSION: 1. Status post multivessel stenting in the setting of non ST-segment elevation myocardial infarction. 2. Status post coronary artery bypass grafting. 3. Respiratory failure. 4. Congestive heart failure. 5. Hypertension. 6. Hyperlipidemia. 7. Transient complete heart block, resolved. 8. Mild cardiomyopathy. RECOMMENDATIONS: We will continue present therapy. Continue intensive respiratory therapy as well as give him a dose of IV Lasix now. Depending on his progress, further recommendations will be made. MMODL / IJN: [id number] /
[2018-09-02] MEDS: CEFEPIME 2 GM in SODIUM CHLORIDE 0.9% 100 ML IVPB SCH ×2 (10:41→20:27)
[2018-09-02 11:40] LABS: Glucose,Whole Blood 150 mg/dL (75-99)
--- NOTE | 2018-09-02 12:54 | P.PN ---
Subjective Progress Note Date: 09/02/18 There is evaluation of 08/28/2018 I'm seeing this patient for a follow-up. This patient is known to have coronary artery disease and the patient came an acute non-STEMI and the patient underwent a emergent stenting of the RCA and subsequently had to be taken back to the [facility] where the patient underwent stenting of the PDA branch of the RCA and PCI and stenting of the saphenous vein graft to up to is marginal. The patient's course was complicated by cardiogenic shock from which the patient recovered and intra-aortic balloon pump was removed. He also developed acute kidney injury from which she recovered. The patient is known to have diabetes mellitus type 2, prostate cancer, chronic back pain, hyperlipidemia, hypertension and previous history of dementia. The patient remains intubated on a mechanical ventilator. This morning the patient and assist control mode of ventilation with a rate of 16 with a tidal volume of 450-50% with a PEEP of 16. Note That Earlier This Morning Showed a pH of 7.50 with a PCO2 of 36 and PO2 of 56. The Chest X-Ray from Today from Today Showing Adequate Positioning of the ET Tube. No Evidence of Any Pneumothorax. There is bibasilar pulmonary infiltrates seen. The patient's CVP was around 10. I started him on Lasix if he was started on Lasix 40 mg IV every 8 hours. Meanwhile, the patient's rhythm was slightly tachycardic today. EKG was done a nd the patient was found to have right bundle branch block pattern within a A. fib rhythm. The patient is currently on dopamine at 3 g per KG per minute. His renal function is improved. He is afebrile. He is tolerating his tube feeds which is at goal with vital high protein at the rate of 30 mL an hour. He is producing adequate amount of urine output. The patient is afebrile. The patient is maintaining a normal renal function at creatinine of 0.8. The acute kidney injury is improved. No significant leukocytosis. No other significant events overnight otherwise for now. On 08/29/2018, the patient remains sedated and abated on a mechanical ventilator. Vent settings with a tidal volume of 450 with a PEEP of 16 FiO2 of 50% and a rate of 16. Chest x-ray shows no significant change. The patient was started on diuretics yesterday with Lasix 40 mg IV push every 8 hours and the patient is a negative fluid balance. Pulse ox on the monitor his in the order of 97% and based on that the patient was dropped down to 14 of PEEP and later on down to 12 of PEEP maintaining a saturation above 90%. IV fluids have been cut to KVO. The patient is a negative fluid balance. The patient is in a first- degree AV block with a RBBB pattern and the dopamine drip has been discontinued. Blood pressure has picked up nicely. The patient is receiving enteral feeding for nutritional support. No fever. No chills no leukocytosis. Blood gases from today showed a pH of 7.53 with a pCO2 of 42 and pO2 of 90 and this was done on above-mentioned vent setting. The patient has a stable white count of 10.7. Hemoglobin is at 11.3. No other significant events over the past 24 hours. Creatinine is also stable at 0.8. On today's evaluation of 08/30/2018 I'm seeing this patient for a follow-up. The patient remains on a mechanical ventilator. The patient is being diuresis for now with IV Lasix and the patient remains in a negative fluid balance. He is producing excess amount of urine output. His oxidation is improved. Or the past 24 hours and was able to cut down the PEEP to 10. I repeated the blood gas today and showed a pH of 7.51 with a pCO2 of 38 and pO2 72. Note that the bobo ieleila was given 2 doses of Diamox yesterday. That fluid balance is negative more than 3 and half liters over the past 24 hours. The chest x-ray from today shows bilateral pleural effusion and atelectatic changes in lung bases bilaterally. Similar finding was also seen on the CAT scan of the chest that was done yesterday. No fever. No chills. Pro calcitonin level was slightly elevated. The patient is afebrile. The patient is hemodynamically stable and tolerating the diuretics very well. I'm also going to give this patient a sedation holiday. Sedation was stopped this morning and were monitoring his mental status very closely. His cardiac rhythm is sinus at this point in time. On 08/31/2018 I'm seeing this patient for a follow-up. The patient remains on a mechanical ventilator. Oxygenation is improved. The patient is currently down to 5 of PEEP. The morning blood gases while being on assist control mode at the rate of 14 with a tidal volume of 450 and FiO2 of 40% with a PEEP of 5 showed a pH of 7.49 with a pCO2 of 35 and pO2 of 66. The patient is producing good amount of urine output. In fact he has been in a negative fluid balance over the past 3 days while being on IV Lasix. Her metabolic alkalosis is also improved and the pH is down to 7.49. He was given a sedation holiday. He was able to follow some simple commands. I gave him a brief spontaneous breathing trial and he was getting tachycardic. Based on that the child was discontinued. Nevertheless, the patient was kept off sedation. The patient had a chest x-ray today and showed pulmonary vessel congestion and bilateral pleural effusions. He is still receiving enteral feeding for nutritional support. Cardiac rhythm is sinus. No hemodynamic instability. No fever or chills. No signs of septi cemia this point in time. On 09/01/2018, patient was again taken off sedation. After monitoring this patient for another 3 hours while off the sedation, the patient was switched to a pressure support of 5 and a PEEP of 5 and the patient was given as pertains breathing trial for around 30 minutes. At that point, he seems to be quite alert and awake and he was tolerating the trial without any major difficulties and I decide to extubate the patient a nasal cannula. Note that the sputum sample this was collected earlier is showing MRSA. He chest x-ray still showing some haziness in lung bases bilaterally. I thought that this was effusion and for that reason ultrasound of the chest was ordered and based on ultrasound amount of effusion is minimal at this point in time. The patient is being diuresis with IV Lasix. The patient is also on Diamox. The patient is doing well. He has an excellent urine output. He remains negative fluid balance. He was receiving enteral feeding for nutritional support and post extubation the patient was kept with his NG tube in place for oral feeds and medications. His cardiac rhythm is sinus. He is afebrile. No other significant events overnight . On 09/02/2018, the patient is extubated. Noted after a lengthy evaluation yesterday, extubated the patient to a nasal cannula. He did well overnight and earlier this morning he became more hypoxic. He was raised up to 10 L of oxygen by nasal cannula. He is able to maintain oxygen saturation above 90%. He has a congested cough. Unable to bring up much sputum. His chest x-rays showing no s ignificant change. Atelectatic changes in lung bases bilaterally. NG tube was pulled out as was sitting high in the stomach. The patient's white cell count is at 18.2. There is a concern of an infection especially the patient grew MRSA in the sputum and the patient was given vancomycin. IV cefepime will be also added as the patient has a congested cough and I'm very much suspicious that there is may be some superimposed pneumonia at this point in time. His renal function is stable. He is diuresing extremely well. His pH is at 7.43 with a pCO2 of 32 and pO2 of 60 on the blood gas today. Diamox will be discontinued. The patient is still on IV Lasix producing excellent urine output and the urine output is no other of -2.063 L over the past 24 hours. He is having some difficulties with speech. I think this is related to the prolonged mechanical ventilation. No stridor. He is moving all 4 extremities. Following simple commands. Neurologic exam is nonfocal. Currently off enteral feeding. NG tube was removed. Objective - Vital Signs Vital signs: Vital Signs Temp 99.6 F 09/02/18 12:00 Pulse 92 09/02/18 12:45 Resp 31 H 09/02/18 12:45 BP 100/83 09/02/18 12:00 Pulse Ox 95 09/02/18 12:45 Intake & Output 09/01/18 09/02/18 09/02/18 18:59 06:59 18:59 Intake Total 539.662 372 566 Output Total 970 8767 1035 Balance -430.847 -0790 -595 Weight 100.3 kg 99.5 kg Intake: IV 312 312 566 0.9 Nacl @ 20 ml/hr KVO 240 240 80 Arterial Sheath pressure 72 72 36 bag Cefepime 2 gm In Sodium 100 Chloride 0.9% 100 ml @ 200 mls/hr IVPB Q12HR [facility] Rx#:[id number] Potassium Chloride 20 meq 100 In Water For Injection 1 100ml.bag @ 50 mls/hr IVPB Q2H [facility] Rx#: [id number] Vancomycin 1,500 mg In 250 Sodium Chloride 0.9% 250 ml @ 125 mls/hr IVPB Q16H [facility] Rx#:[id number] Intake, IV Titration 83.662 Amount Propofol 1,000 mg In 83.662 Empty Bag 1 bag @ Titrate IV .Q0M [facility] Rx#: [id number] Tube Feeding 114 Other 30 60 Output: Urine 970 2005 1035 Other: Voiding Method Indwelling Catheter Indwelling Catheter Indwelling Catheter ABP, PAP, CO, CI - Last Documented Arterial Blood Pressure 96/50 - Exam GENERAL EXAM: Calm and comfortable and the patient is extubated to nasal cannula HEAD: Normocephalic/atraumatic. EYES: Normal reaction of pupils, equal size. Conjunctiva pink, sclera white. NOSE: Clear with pink turbinates. THROAT: No erythema or exudates. NECK: No masses, no JVD, no thyroid enlargement, no adenopathy. CHEST: No chest wall deformity. Symmetrical expansion. LUNGS: Equal air entry with no crackles, wheeze, rhonchi or dullness. CVS: Regular rate and rhythm, normal S1 and S2, no gallops, no murmurs, no rubs ABDOMEN: Soft, nontender. No hepatosplenomegaly, normal bowel sounds, no guarding or rigidity. EXTREMITIES: No clubbing, no edema, no cyanosis, 2+ pulses and upper and lower extremities. MUSCULOSKELETAL: Muscle strength and tone normal. SPINE: No scoliosis or deformity SKIN: No rashes CENTRAL NERVOUS SYSTEM: Awake and alert and there is no focal neurological deficit. - Labs CBC & Chem 7: 09/02/18 05:08 09/02/18 05:08 Labs: Abnormal Lab Results - Last 24 Hours (Table) 09/01/18 09/01/18 09/02/18 Range/Units 17:23 19:55 00:16 WBC (3.8-10.6) k/uL RBC (4.30-5.90) m/uL Hgb (13.0-17.5) gm/dL Hct (39.0-53.0) % RDW (11.5-15.5) % ABG pCO2 (35-45) mmHg ABG pO2 (83-108) mmHg ABG O2 Saturation (94-97) % Potassium (3.5-5.1) mmol/L Chloride (98-107) mmol/L BUN (9-20) mg/dL Glucose (74-99) mg/dL POC Glucose (mg/dL) 128 H 121 H 160 H (75-99) mg/dL 09/02/18 09/02/18 09/02/18 Range/Units 03:39 05:08 05:08 WBC 18.2 H (3.8-10.6) k/uL RBC 4.11 L (4.30-5.90) m/uL Hgb 12.6 L (13.0-17.5) gm/dL Hct 38.6 L (39.0-53.0) % RDW 15.8 H (11.5-15.5) % ABG pCO2 (35-45) mmHg ABG pO2 (83-108) mmHg ABG O2 Saturation (94-97) % Potassium 3.3 L (3.5-5.1) mmol/L Chloride 109 H (98-107) mmol/L BUN 26 H (9-20) mg/dL Glucose 140 H (74-99) mg/dL POC Glucose (mg/dL) 130 H (75-99) mg/dL 09/02/18 09/02/18 09/02/18 Range/Units 07:18 07:55 11:26 WBC (3.8-10.6) k/uL RBC (4.30-5.90) m/uL Hgb (13.0-17.5) gm/dL Hct (39.0-53.0) % RDW (11.5-15.5) % ABG pCO2 32 L (35-45) mmHg ABG pO2 60 L (83-108) mmHg ABG O2 Saturation 90.4 L (94-97) % Potassium (3.5-5.1) mmol/L Chloride (98-107) mmol/L BUN (9-20) mg/dL Glucose (74-99) mg/dL POC Glucose (mg/dL) 162 H 150 H (75-99) mg/dL Microbiology - Last 24 Hours (Table) 08/30/18 15:40 Gram Stain - Final Sputum Sputum Culture - Final Methicillin resist S. aureus Assessment and Plan Plan: #1 Acute non-ST segment elevation myocardial infarction status post stenting to the distal right coronary artery and stenting of the PDA branch of the right coronary artery with transient bradycardia requiring insertion of transvenous temporary pacemaker. He subsequently developed recurrent chest pain cardiogenic shock and was taken back to the [facility] and received stenting to the saphenous vein graft to the obtuse marginal branch of the circumflex. Insertion of intra- aortic balloon pump. Reposition of the TVP. Intubated and on mechanical ventilation. She remains on 3 mics of dopamine per radiologic technologist chief recommendation. The renal function is improved and normalized. The patient is maintaining his own blood pressure. CVP is around 10 the patient is started on diuretics for now. On today's evaluation of 08/29/2018, the patient remains intubated on a mechanical ventilator. Nevertheless, the patient is currently off dopamine. The patient is diuresing very nicely with IV Lasix and the patient is maintaining a negative fluid balance. Hemodynamically stable at this point in time. Should be able to cut down the PEEP gradually to maintain a saturation above 90%. On today's evaluation of 08/30/2018, I'm seeing this patient for a follow-up. The patient is improved in terms of his oxygenation. I was able to cut down the PEEP down to 10 and the patient is a negative fluid balance as the patient is being diuresed and the patient is at least 3 L in a negative fluid balance since yesterday. Tolerating diuretics well. He has developed a component of metabolic alkalosis and the patient was given 2 doses of Diamox. Repeat blood gases are to follow. Chest x-ray was noted. CAT scan of the chest done yesterday was noted. On 08/31/2018, the patient is still on a mechanical ventilator. Oxygenation is improved. Chest x-ray still showing bilateral pleural effusion and pulmonary vessel congestion. The patient is on IV Lasix. The patient is down to 5 of PEEP. The patient is hemodynamically stable at this point. He was unable to do a full spontaneous breathing trial. We'll keep him off sedation and will consider repeating the Trileptal later stage. He still has some ongoing ongoing edema and effusion and he would benefit from further diuresis. On 09/01/2018, the patient is extubated. History of any chest pain. He was extubated to nasal cannula. Hemodynamically stable. Cardiac rhythm is stable. On 09/02/2018, cardiac condition is stable and the patient is hemodynamically stable. The patient is also extubated. #2 Cardiogenic shock secondary to above, recovering, and the patient is cur rently not taking any pressors for now. #3 Previous history of coronary artery disease with coronary artery bypass grafting utilizing the GAVIRIA to the LAD, saphenous vein grafts to the diagonal and OM back in 2008. #4 acute hypoxic respiratory failure improved considerably as the patient was weaned off the mechanical ventilator and the patient was extubated yesterday without any major issues. Currently is on high flow oxygen. He has a congested cough. His speech is affected and this is probably related to mechanical ventilation and intubation for prolonged period of time. There is MRSA growing in the sputum. The patient will be started on vancomycin. #5 Dementia. #6 Prostate cancer. #7 Previous history of pneumonia/sepsis. #8 Chronic back pain. #9 History of renal colic. #10 Hyperlipidemia. #11 Hypertension. #12 acute kidney injury, recovered #13 dementia #14 right bundle branch block pattern along with a first-degree AV block. The patient had short run of atrial fibrillation yesterday Plan: Keep the patient in the ICU. Aggressive physical therapy. Chest PT. Continue vancomycin. Add cefepime. Discontinue Diamox. Continue IV Lasix. Continue bronchodilators. Repeat chest x-ray in the morning. Monitor cardiac pulmonary status in the ICU. We'll continue to follow make further recommendations based on his progress. The sedation was on a more than 30 minutes. Family was also the bedside and I was able to give him an update on his condition. Time with Patient: Greater than 30
--- NOTE | 2018-09-02 13:58 | P.PN ---
Subjective 78-year-old gentleman who is seen in the ICU. Patient is currently intubated. Patient initially is transferred from another facility on 08/21/2018. He was diagnosed with non-STEMI. He went for cardiac cath and underwent successful stenting of the distal right RCA and PDA branch of the coronary artery. He developed transient occlusion of the distal branches which were opened up. Patient went into complete heart block and received transfusion his pacemaker. Patient was brought to the [facility] care unit. In the ICU he developed chest discomfort again hypertension and he was a came back to the [facility]. He received intra-aortic balloon pump and stenting of the saphenous vein graft to the obtuse marginal branch of the circumflex. He was at this time intubated and put on ventilator. Patient is still on ventilator. Sedated On 08/29/2018 Patient intubated and sedated Weaning trial 08/30/2018 Patient still intubated Weaning trial in progress On a sedation holiday right now 08/31/2018 Patient still intubated Sugars continue to be in 200s Continue weaning trial. He was not tolerating the sedation holiday, he was put on very small amount of sedation this morning 09/01/2018 Patient extubated today Patient on diuresis 09/02/2018 Patient was sleeping at the time examination He is on 10 L oxygen. He is following simple commands and moving all of his extremities Objective - Vital Signs Vital signs: Vital Signs Temp 99.6 F 09/02/18 12:00 Pulse 93 09/02/18 13:15 Resp 25 H 09/02/18 13:15 BP 102/56 09/02/18 13:15 Pulse Ox 94 L 09/02/18 13:15 Intake & Output 09/01/18 09/02/18 09/02/18 18:59 06:59 18:59 Intake Total 539.662 372 592 Output Total 970 2005 1070 Balance -430.338 -1633 -478 Weight 100.3 kg 99.5 kg Intake: IV 312 312 592 0.9 Nacl @ 20 ml/hr KVO 240 240 100 Arterial Sheath pressure 72 72 42 bag Cefepime 2 gm In Sodium 100 Chloride 0.9% 100 ml @ 200 mls/hr IVPB Q12HR [facility] Rx#:[id number] Potassium Chloride 20 meq 100 In Water For Injection 1 100ml.bag @ 50 mls/hr IVPB Q2H [facility] Rx#: [id number] Vancomycin 1,500 mg In 250 Sodium Chloride 0.9% 250 ml @ 125 mls/hr IVPB Q16H [facility] Rx#:[id number] Intake, IV Titration 83.662 Amount Propofol 1,000 mg In 83.662 Empty Bag 1 bag @ Titrate IV .Q0M [facility] Rx#: [id number] Tube Feeding 114 Other 30 60 Output: Urine 970 2005 1070 Other: Voiding Method Indwelling Catheter Indwelling Catheter Indwelling Catheter ABP, PAP, CO, CI - Last Documented Arterial Blood Pressure 96/51 - Exam On exam, patient extubated, awake NECK: No JVD. No thyroid enlargement. No LNs CARDIOVASCULAR: S1-S2 positive RESPIRATION: Breath sounds diminished in the bases. No rhonchi or crackles. No bronchial breathing. ABDOMEN: Soft, nontender . No guarding. no masses palpable. No ascites, No hepatosplenomegaly.Bowel sounds heard. LEGS: No edema. no swelling NERVOUS SYSTEM: Patient is extubated. Patient is awake and shows no focal neurological deficits Skin: no ulcer no rash - Labs CBC & Chem 7: 09/02/18 05:08 09/02/18 05:08 Labs: Abnormal Lab Results - Last 24 Hours (Table) 09/01/18 09/01/18 09/02/18 Range/Units 17:23 19:55 00:16 WBC (3.8-10.6) k/uL RBC (4.30-5.90) m/uL Hgb (13.0-17.5) gm/dL Hct (39.0-53.0) % RDW (11.5-15.5) % ABG pCO2 (35-45) mmHg ABG pO2 (83-108) mmHg ABG O2 Saturation (94-97) % Potassium (3.5-5.1) mmol/L Chloride (98-107) mmol/L BUN (9-20) mg/dL Glucose (74-99) mg/dL POC Glucose (mg/dL) 128 H 121 H 160 H (75-99) mg/dL 09/02/18 09/02/18 09/02/18 Range/Units 03:39 05:08 05:08 WBC 18.2 H (3.8-10.6) k/uL RBC 4.11 L (4.30-5.90) m/uL Hgb 12.6 L (13.0-17.5) gm/dL Hct 38.6 L (39.0-53.0) % RDW 15.8 H (11.5-15.5) % ABG pCO2 (35-45) mmHg ABG pO2 (83-108) mmHg ABG O2 Saturation (94-97) % Potassium 3.3 L (3.5-5.1) mmol/L Chloride 109 H (98-107) mmol/L BUN 26 H (9-20) mg/dL Glucose 140 H (74-99) mg/dL POC Glucose (mg/dL) 130 H (75-99) mg/dL 09/02/18 09/02/18 09/02/18 Range/Units 07:18 07:55 11:26 WBC (3.8-10.6) k/uL RBC (4.30-5.90) m/uL Hgb (13.0-17.5) gm/dL Hct (39.0-53.0) % RDW (11.5-15.5) % ABG pCO2 32 L (35-45) mmHg ABG pO2 60 L (83-108) mmHg ABG O2 Saturation 90.4 L (94-97) % Potassium (3.5-5.1) mmol/L Chloride (98-107) mmol/L BUN (9-20) mg/dL Glucose (74-99) mg/dL POC Glucose (mg/dL) 162 H 150 H (75-99) mg/dL Microbiology - Last 24 Hours (Table) 08/30/18 15:40 Gram Stain - Final Sputum Sputum Culture - Final Methicillin resist S. aureus Assessment and Plan Assessment: - acute respiratory failure requiring intubation now extubated - non-STEMI - Cardiogenic shock requiring balloon pump support which has been removed - Complete heart block requiring temporary venous pacemaker - Diabetes - Hyperlipidemia - Acute renal failure - NE - hypertension Plan 08/28/2018 - Continue icU and management as per retail specialist - Cardiology on board, patient recommendations - on Lasix - We'll monitor the labs - DVT and GI prophylaxis - We'll follow up on the patient 08/29/2018 Continue ventilatory support Appreciated ICU recommendations He started on Lasix 40 every 8 Cardiology is following the patient We'll continue to monitor 08/30/2018 - Continue Lasix as per cardiology - ICU management appreciated - Continue rest of the medical care - Weaning trial in progress - We will follow the patient 08/31/2018 - Continue Lasix - Weaning trial in progress - His blood sugars were high. His long-acting insulin was changed from 14 to 18 daily. we'll see how he response. - We'll continue rest of the medical care - Continue vent support at the time - We will follow with the patient 09/01/2018 - Patient extubated today - Continue Lasix - Continue blood sugar control. His Lantus was increased from 14-18 units this morning - Continue rest of the medical care - We'll follow up on the patient 09/02/2018 - We'll continue to monitor in the ICU patient still requiring high oxygen - Continue IV antibiotics - We'll continue Lasix - Continue rest of the medical care - We will follow the patient
[2018-09-02 16:39] LABS: Glucose,Whole Blood 100 mg/dL (75-99)
[2018-09-02 20:06] LABS: Glucose,Whole Blood 96 mg/dL (75-99)
[2018-09-02 20:19] LABS: Glucose,Whole Blood 97 mg/dL (75-99)
[2018-09-02] MEDS: VANCOMYCIN 1,500 MG in SODIUM CHLORIDE 0.9% 250 ML IVPB SCH (20:32)
[2018-09-02] MEDS: POTASSIUM CHLORIDE 10 MEQ in WATER FOR INJECTION 1 100ML.BAG IVPB SCH ×2 (21:35→22:36)
[2018-09-02 23:57] LABS: Glucose,Whole Blood 103 mg/dL (75-99)
[2018-09-03] MEDS ORDERED: Potassium Replacement Protocol 1 EACH MISC MISCELLANE PRN (01:16)
[2018-09-03] MEDS: POTASSIUM CHLORIDE 10 MEQ in WATER FOR INJECTION 1 100ML.BAG IVPB SCH ×2 (01:41→02:52)
[2018-09-03 04:47] LABS: Glucose,Whole Blood 126 mg/dL (75-99)
[2018-09-03 04:52] LABS: Basophils # (A) 0.1 k/uL (0-0.2); Basophils % (A) 0 %; Eosinophils # (A) 0.2 k/uL (0-0.7); Eosinophils % (A) 1 %; HCT 35.9 % (39.0-53.0); HGB 11.7 gm/dL (13.0-17.5); Lymphocytes # (A) 1.5 k/uL (1.0-4.8); Lymphocytes % (A) 9 %; MCH 30.2 pg (25.0-35.0); MCHC 32.5 g/dL (31.0-37.0); MCV 92.8 fL (80.0-100.0); Mean Platelet Volume 9.1; Monocytes # (A) 0.9 k/uL (0-1.0); Monocytes % (A) 6 %; Neutrophils # (A) 12.6 k/uL (1.3-7.7); Neutrophils % (A) 79 %; Platelet Count 326 k/uL (150-450); RBC 3.87 m/uL (4.30-5.90); RDW 14.6 % (11.5-15.5); WBC 15.9 k/uL (3.8-10.6)
[2018-09-03 05:06] LABS: African American GFR (CKD) >90 (>60 ml/min/1.73 sqM); Anion Gap 12 mmol/L; Blood Urea Nitrogen 28 mg/dL (9-20); Carbon Dioxide 20 mmol/L (22-30); Chloride 112 mmol/L (98-107); Glucose 140 mg/dL (74-99); Magnesium 2.1 mg/dL (1.6-2.3); Potassium 3.8 mmol/L (3.5-5.1); Sodium 144 mmol/L (137-145)
[2018-09-03] MEDS ORDERED: POTASSIUM CHLORIDE 20 MEQ in WATER FOR INJECTION 1 100ML.BAG IVPB ONE (05:24)
[2018-09-03] MEDS: INSULIN ASPART (NovoLOG) 100 UNIT/ML VIAL SQ SCH ×6 (05:58→23:32)
[2018-09-03] MEDS: IPRATROPIUM-ALBUTEROL 3 ML NEB INHALATION SCH ×4 (07:14→19:58)
--- NOTE | 2018-09-03 07:23 | XR ---
EXAMINATION TYPE: XR chest 1V portable DATE OF EXAM: 09/03/2018 COMPARISON: 09/02/2018 HISTORY: Shortness of breath TECHNIQUE: Single frontal view of the chest is obtained. FINDINGS: ET tube has been removed. Bilateral consolidation, cardiomegaly, pleural effusion stable. Postoperative change and central line are noted. Arthropathy of the shoulders. IMPRESSION: 1. Diffuse pleural-parenchymal changes stable correlate for CHF versus pneumonia.
--- NOTE | 2018-09-03 07:42 | PN ---
PROGRESS NOTE Mr. Vega is an 78-year-old male with history of coronary artery disease status post coronary artery bypass grafting who presented with a non ST-segment elevation myocardial infarction, underwent multivessel stenting, had episode of complete heart block requiring temporary pacemaker that was removed. He had prolonged episode of intubation because of respiratory failure. He is extubated, more awake and alert compared to yesterday. Hemodynamically stable. He continues to be in sinus mechanism. No evidence of high-grade AV block. He continues to be on amlodipine 5 mg daily, Diamox 250 mg IV q.12 hours, aspirin once a day, Lipitor 40 mg daily, Plavix 75 mg daily, Lasix 40 mg IV q.12 hours, lisinopril 5 mg twice a day, metoprolol tartrate 25 mg twice a day, spironolactone 25 mg daily. PHYSICAL EXAMINATION: Blood pressure 126/50 with a heart rate in the 80s. Lungs a few crackles at the bases. HEART: Regular rate and rhythm S1, S2. No S3 with systolic murmur at the base 2/6. No diastolic murmur. No rub. ABDOMEN: Soft, nontender. Positive bowel sounds. No megaly. EXTREMITIES: No significant edema. LAB DATA: Lab data revealed BUN and creatinine 28 and 0.85. Potassium 3.8. Hemoglobin of 11.7. IMPRESSION: 1. Status post non ST-segment elevation myocardial infarction with multivessel stenting, stable. 2. Respiratory failure resolved. 3. Transient complete heart block, resolved. 4. Hypertension. 5. History of hyperlipidemia. RECOMMENDATION: From the cardiac standpoint, he is stable. We will continue on the present therapy. We will continue physical therapy. Increase his activity. Follow his renal function. If he is stable in the next 24-48 hours, may be able to switch him to oral diuretics. We will follow his rhythm to see if a he would require a permanent pacemaker, although at this point, I see no indication for that. MMODL / IJN: [id number] /
[2018-09-03 08:31] LABS: Glucose,Whole Blood 145 mg/dL (75-99)
[2018-09-03] MEDS: amLODIPine 5 MG TAB PO SCH (08:50)
[2018-09-03] MEDS: ATORVASTATIN 40 MG TAB PO SCH (08:50)
[2018-09-03] MEDS: ASPIRIN 81 MG PO SCH (08:50)
[2018-09-03] MEDS: METOPROLOL TARTRATE 25 MG TAB PO SCH (08:51)
[2018-09-03] MEDS: PREVAGEN PO SCH (08:51)
[2018-09-03] MEDS: LISINOPRIL 5 MG TAB PO SCH ×2 (08:51→20:40)
[2018-09-03] MEDS: SPIRONOLACTONE 25 MG TAB PO SCH (08:51)
[2018-09-03] MEDS: MULTIVITAMINS, THERA 1 EACH TAB PO SCH (08:51)
[2018-09-03] MEDS: CLOPIDOGREL 75 MG TAB PO SCH (08:52)
[2018-09-03] MEDS: FUROSEMIDE 10 MG/ML 4 ML VIAL IV SCH (08:56)
[2018-09-03] MEDS: VANCOMYCIN 1,500 MG in SODIUM CHLORIDE 0.9% 250 ML IVPB SCH ×2 (08:56→20:45)
[2018-09-03] MEDS: CEFEPIME 2 GM in SODIUM CHLORIDE 0.9% 100 ML IVPB SCH ×2 (08:57→20:45)
[2018-09-03] MEDS: HEPARIN SODIUM,PORCINE 5,000 UNIT/ML 1 ML VIAL SQ SCH ×3 (08:57→23:35)
[2018-09-03] MEDS: INSULIN DETEMIR (LEVEMIR) 100 UNIT/ML SYR SQ SCH (08:57)
[2018-09-03] MEDS: PANTOPRAZOLE 40 MG/10 ML VIAL IVP SCH (08:58)
[2018-09-03] MEDS: METOPROLOL TARTRATE 5 MG/5 ML VIAL IVP SCH ×3 (11:05→23:35)
[2018-09-03 11:16] LABS: Glucose,Whole Blood 170 mg/dL (75-99)
[2018-09-03] MEDS ORDERED: ACETAMINOPHEN IV (For NPO) 1,000 MG in EMPTY BAG 1 BAG IVPB SCH (12:00)
--- NOTE | 2018-09-03 12:22 | P.PN ---
Subjective Progress Note Date: 09/03/18 There is evaluation of 08/28/2018 I'm seeing this patient for a follow-up. This patient is known to have coronary artery disease and the patient came an acute non-STEMI and the patient underwent a emergent stenting of the RCA and subsequently had to be taken back to the [facility] where the patient underwent stenting of the PDA branch of the RCA and PCI and stenting of the saphenous vein graft to up to is marginal. The patient's course was complicated by cardiogenic shock from which the patient recovered and intra-aortic balloon pump was removed. He also developed acute kidney injury from which she recovered. The patient is known to have diabetes mellitus type 2, prostate cancer, chronic back pain, hyperlipidemia, hypertension and previous history of dementia. The patient remains intubated on a mechanical ventilator. This morning the patient and assist control mode of ventilation with a rate of 16 with a tidal volume of 450-50% with a PEEP of 16. Note That Earlier This Morning Showed a pH of 7.50 with a PCO2 of 36 and PO2 of 56. The Chest X-Ray from Today from Today Showing Adequate Positioning of the ET Tube. No Evidence of Any Pneumothorax. There is bibasilar pulmonary infiltrates seen. The patient's CVP was around 10. I started him on Lasix if he was started on Lasix 40 mg IV every 8 hours. Meanwhile, the patient's rhythm was slightly tachycardic today. EKG was done a nd the patient was found to have right bundle branch block pattern within a A. fib rhythm. The patient is currently on dopamine at 3 g per KG per minute. His renal function is improved. He is afebrile. He is tolerating his tube feeds which is at goal with vital high protein at the rate of 30 mL an hour. He is producing adequate amount of urine output. The patient is afebrile. The patient is maintaining a normal renal function at creatinine of 0.8. The acute kidney injury is improved. No significant leukocytosis. No other significant events overnight otherwise for now. On 08/29/2018, the patient remains sedated and abated on a mechanical ventilator. Vent settings with a tidal volume of 450 with a PEEP of 16 FiO2 of 50% and a rate of 16. Chest x-ray shows no significant change. The patient was started on diuretics yesterday with Lasix 40 mg IV push every 8 hours and the patient is a negative fluid balance. Pulse ox on the monitor his in the order of 97% and based on that the patient was dropped down to 14 of PEEP and later on down to 12 of PEEP maintaining a saturation above 90%. IV fluids have been cut to KVO. The patient is a negative fluid balance. The patient is in a first- degree AV block with a RBBB pattern and the dopamine drip has been discontinued. Blood pressure has picked up nicely. The patient is receiving enteral feeding for nutritional support. No fever. No chills no leukocytosis. Blood gases from today showed a pH of 7.53 with a pCO2 of 42 and pO2 of 90 and this was done on above-mentioned vent setting. The patient has a stable white count of 10.7. Hemoglobin is at 11.3. No other significant events over the past 24 hours. Creatinine is also stable at 0.8. On today's evaluation of 08/30/2018 I'm seeing this patient for a follow-up. The patient remains on a mechanical ventilator. The patient is being diuresis for now with IV Lasix and the patient remains in a negative fluid balance. He is producing excess amount of urine output. His oxidation is improved. Or the past 24 hours and was able to cut down the PEEP to 10. I repeated the blood gas today and showed a pH of 7.51 with a pCO2 of 38 and pO2 72. Note that the bobo ieleila was given 2 doses of Diamox yesterday. That fluid balance is negative more than 3 and half liters over the past 24 hours. The chest x-ray from today shows bilateral pleural effusion and atelectatic changes in lung bases bilaterally. Similar finding was also seen on the CAT scan of the chest that was done yesterday. No fever. No chills. Pro calcitonin level was slightly elevated. The patient is afebrile. The patient is hemodynamically stable and tolerating the diuretics very well. I'm also going to give this patient a sedation holiday. Sedation was stopped this morning and were monitoring his mental status very closely. His cardiac rhythm is sinus at this point in time. On 08/31/2018 I'm seeing this patient for a follow-up. The patient remains on a mechanical ventilator. Oxygenation is improved. The patient is currently down to 5 of PEEP. The morning blood gases while being on assist control mode at the rate of 14 with a tidal volume of 450 and FiO2 of 40% with a PEEP of 5 showed a pH of 7.49 with a pCO2 of 35 and pO2 of 66. The patient is producing good amount of urine output. In fact he has been in a negative fluid balance over the past 3 days while being on IV Lasix. Her metabolic alkalosis is also improved and the pH is down to 7.49. He was given a sedation holiday. He was able to follow some simple commands. I gave him a brief spontaneous breathing trial and he was getting tachycardic. Based on that the child was discontinued. Nevertheless, the patient was kept off sedation. The patient had a chest x-ray today and showed pulmonary vessel congestion and bilateral pleural effusions. He is still receiving enteral feeding for nutritional support. Cardiac rhythm is sinus. No hemodynamic instability. No fever or chills. No signs of septi cemia this point in time. On 09/01/2018, patient was again taken off sedation. After monitoring this patient for another 3 hours while off the sedation, the patient was switched to a pressure support of 5 and a PEEP of 5 and the patient was given as pertains breathing trial for around 30 minutes. At that point, he seems to be quite alert and awake and he was tolerating the trial without any major difficulties and I decide to extubate the patient a nasal cannula. Note that the sputum sample this was collected earlier is showing MRSA. He chest x-ray still showing some haziness in lung bases bilaterally. I thought that this was effusion and for that reason ultrasound of the chest was ordered and based on ultrasound amount of effusion is minimal at this point in time. The patient is being diuresis with IV Lasix. The patient is also on Diamox. The patient is doing well. He has an excellent urine output. He remains negative fluid balance. He was receiving enteral feeding for nutritional support and post extubation the patient was kept with his NG tube in place for oral feeds and medications. His cardiac rhythm is sinus. He is afebrile. No other significant events overnight . On 09/02/2018, the patient is extubated. Noted after a lengthy evaluation yesterday, extubated the patient to a nasal cannula. He did well overnight and earlier this morning he became more hypoxic. He was raised up to 10 L of oxygen by nasal cannula. He is able to maintain oxygen saturation above 90%. He has a congested cough. Unable to bring up much sputum. His chest x-rays showing no s ignificant change. Atelectatic changes in lung bases bilaterally. NG tube was pulled out as was sitting high in the stomach. The patient's white cell count is at 18.2. There is a concern of an infection especially the patient grew MRSA in the sputum and the patient was given vancomycin. IV cefepime will be also added as the patient has a congested cough and I'm very much suspicious that there is may be some superimposed pneumonia at this point in time. His renal function is stable. He is diuresing extremely well. His pH is at 7.43 with a pCO2 of 32 and pO2 of 60 on the blood gas today. Diamox will be discontinued. The patient is still on IV Lasix producing excellent urine output and the urine output is no other of -2.063 L over the past 24 hours. He is having some difficulties with speech. I think this is related to the prolonged mechanical ventilation. No stridor. He is moving all 4 extremities. Following simple commands. Neurologic exam is nonfocal. Currently off enteral feeding. NG tube was removed. On 09/03/2018 the patient remains extubated. Doing well. Cough is less congested. Less short of breath compared to yesterday. He was weaned down to 60% oxygen by nasal cannula to maintain a saturation above 90%. The patient is doing well. No significant respiratory difficulties. Hemodynamically stable. He was having some frequent PVCs and the patient will be placed on IV metoprolol knowing that he is not ready to take oral medications yet. He is in a negative fluid balance. Diamox will be discontinued. Lasix will be tapered off. He was started on a combination of vancomycin and cefepime regarding possibility of a lung infection although the sputum culture showed MRSA. Chest x-ray stable. No evidence of any significant pneumonia at this point in time. The patient will have a swallow evaluation for tomorrow in preparation for any oral feeds. Objective - Vital Signs Vital signs: Vital Signs Temp 97.8 F 09/03/18 04:00 Pulse 80 09/03/18 11:22 Resp 20 09/03/18 07:00 BP 132/69 09/03/18 06:15 Pulse Ox 94 L 09/03/18 07:15 Intake & Output 09/02/18 09/03/18 09/03/18 18:59 06:59 18:59 Intake Total 722 1112 76 Output Total 1305 1795 50 Balance -583 -683 26 Weight 90.7 kg Intake: IV 722 1112 76 0.9 Nacl @ 20 ml/hr KVO 200 240 20 Arterial Sheath pressure 72 72 6 bag Cefepime 2 gm In Sodium 100 100 Chloride 0.9% 100 ml @ 200 mls/hr IVPB Q12HR [facility] Rx#:[id number] Potassium Chloride 10 meq 400 In Water For Injection 1 100ml.bag @ 100 mls/hr IVPB Q1H [facility] Rx#: [id number] Potassium Chloride 20 meq 100 50 50 In Water For Injection 1 100ml.bag @ 50 mls/hr IVPB Q2H [facility] Rx#: [id number] Vancomycin 1,500 mg In 250 250 Sodium Chloride 0.9% 250 ml @ 125 mls/hr IVPB Q16H [facility] Rx#:[id number] Output: Urine 1305 1795 50 Other: Voiding Method Indwelling Catheter Indwelling Catheter Indwelling Catheter ABP, PAP, CO, CI - Last Documented Arterial Blood Pressure 126/59 - Exam GENERAL EXAM: Calm and comfortable and the patient is extubated to nasal cannula currently on 6 L of oxygen nasal cannula. HEAD: Normocephalic/atraumatic. EYES: Normal reaction of pupils, equal size. Conjunctiva pink, sclera white. NOSE: Clear with pink turbinates. THROAT: No erythema or exudates. NECK: No masses, no JVD, no thyroid enlargement, no adenopathy. CHEST: No chest wall deformity. Symmetrical expansion. LUNGS: Equal air entry with no crackles, wheeze, rhonchi or dullness. CVS: Regular rate and rhythm, normal S1 and S2, no gallops, no murmurs, no rubs ABDOMEN: Soft, nontender. No hepatosplenomegaly, normal bowel sounds, no guarding or rigidity. EXTREMITIES: No clubbing, no edema, no cyanosis, 2+ pulses and upper and lower extremities. MUSCULOSKELETAL: Muscle strength and tone normal. SPINE: No scoliosis or deformity SKIN: No rashes CENTRAL NERVOUS SYSTEM: Awake and alert and there is no focal neurological deficit. - Labs CBC & Chem 7: 09/03/18 04:28 09/03/18 11:16 Labs: Abnormal Lab Results - Last 24 Hours (Table) 09/02/18 09/02/18 09/02/18 Range/Units 05:08 16:35 23:43 WBC (3.8-10.6) k/uL RBC (4.30-5.90) m/uL Hgb (13.0-17.5) gm/dL Hct (39.0-53.0) % Neutrophils # (1.3-7.7) k/uL Chloride (98-107) mmol/L Carbon Dioxide (22-30) mmol/L BUN (9-20) mg/dL Glucose (74-99) mg/dL POC Glucose (mg/dL) 100 H 103 H (75-99) mg/dL Procalcitonin 0.17 H (0.02-0.09) ng/mL 09/03/18 09/03/18 09/03/18 Range/Units 04:28 04:28 04:42 WBC 15.9 H (3.8-10.6) k/uL RBC 3.87 L (4.30-5.90) m/uL Hgb 11.7 L (13.0-17.5) gm/dL Hct 35.9 L (39.0-53.0) % Neutrophils # 12.6 H (1.3-7.7) k/uL Chloride 112 H (98-107) mmol/L Carbon Dioxide 20 L (22-30) mmol/L BUN 28 H (9-20) mg/dL Glucose 140 H (74-99) mg/dL POC Glucose (mg/dL) 126 H (75-99) mg/dL Procalcitonin (0.02-0.09) ng/mL 09/03/18 09/03/18 Range/Units 08:05 11:15 WBC (3.8-10.6) k/uL RBC (4.30-5.90) m/uL Hgb (13.0-17.5) gm/dL Hct (39.0-53.0) % Neutrophils # (1.3-7.7) k/uL Chloride (98-107) mmol/L Carbon Dioxide (22-30) mmol/L BUN (9-20) mg/dL Glucose (74-99) mg/dL POC Glucose (mg/dL) 145 H 170 H (75-99) mg/dL Procalcitonin (0.02-0.09) ng/mL Microbiology - Last 24 Hours (Table) 08/30/18 15:40 Gram Stain - Final Sputum Sputum Culture - Final Methicillin resist S. aureus Assessment and Plan Plan: #1 Acute non-ST segment elevation myocardial infarction status post stenting to the distal right coronary artery and stenting of the PDA branch of the right coronary artery with transient bradycardia requiring insertion of transvenous temporary pacemaker. He subsequently developed recurrent chest pain cardiogenic shock and was taken back to the [facility] and received stenting to the saphenous vein graft to the obtuse marginal branch of the circumflex. Insertion of intra- aortic balloon pump. Reposition of the TVP. Intubated and on mechanical venti lation. She remains on 3 mics of dopamine per program evaluator recommendation. The renal function is improved and normalized. The patient is maintaining his own blood pressure. CVP is around 10 the patient is started on diuretics for now. On today's evaluation of 08/29/2018, the patient remains intubated on a mechanical ventilator. Nevertheless, the patient is currently off dopamine. The patient is diuresing very nicely with IV Lasix and the patient is maintaining a negative fluid balance. Hemodynamically stable at this point in time. Should be able to cut down the PEEP gradually to maintain a saturation above 90%. On today's evaluation of 08/30/2018, I'm seeing this patient for a follow-up. The patient is improved in terms of his oxygenation. I was able to cut down the PEEP down to 10 and the patient is a negative fluid balance as the patient is being diuresed and the patient is at least 3 L in a negative fluid balance since yesterday. Tolerating diuretics well. He has developed a component of metabolic alkalosis and the patient was given 2 doses of Diamox. Repeat blood g ases are to follow. Chest x-ray was noted. CAT scan of the chest done yesterday was noted. On 08/31/2018, the patient is still on a mechanical ventilator. Oxygenation is improved. Chest x-ray still showing bilateral pleural effusion and pulmonary vessel congestion. The patient is on IV Lasix. The patient is down to 5 of PEEP. The patient is hemodynamically stable at this point. He was unable to do a full spontaneous breathing trial. We'll keep him off sedation and will consider repeating the Trileptal later stage. He still has some ongoing ongoing edema and effusion and he would benefit from further diuresis. On 09/01/2018, the patient is extubated. History of any chest pain. He was extubated to nasal cannula. Hemodynamically stable. Cardiac rhythm is stable. On 09/02/2018, cardiac condition is stable and the patient is hemodynamically stable. The patient is also extubated. On 09/03/2018, the patient is extubated following an acute non-STEMI and cardiogenic shock and the patient is back to normal hemodynamics and currently on 6 L of oxygen by nasal cannula #2 Cardiogenic shock secondary to above, recovering, and the patient is currently not taking any pressors for now. #3 Previous history of coronary artery disease with coronary artery bypass grafting utilizing the GAVIRIA to the LAD, saphenous vein grafts to the diagonal and OM back in 2008. #4 acute hypoxic respiratory failure improved considerably as the patient was weaned off the mechanical ventilator and the patient was extubated yesterday without any major issues. Currently is on high flow oxygen. He has a congested cough. His speech is affected and this is probably related to mechanical venti lation and intubation for prolonged period of time. There is MRSA growing in the sputum. The patient was started on combination of vancomycin and cefepime. Overall poor status is stable. His cough is less congested and the patient is able to breathe without any major difficulties on today's evaluation with 5l of oxygen by nasal cannula. #5 Dementia. #6 Prostate cancer. #7 Previous history of pneumonia/sepsis. #8 Chronic back pain. #9 History of renal colic. #10 Hyperlipidemia. #11 Hypertension. #12 acute kidney injury, recovered #13 dementia #14 right bundle branch block pattern along with a first-degree AV block. The patient had short run of atrial fibrillation yesterday Plan: Keep the patient in the ICU. Aggressive physical therapy. Chest PT. Continue vancomycin and cefepimecefepime. Discontinue Diamox. Continue IV Lasix at a lower dose of 20 mg every 24 hours and the patient is a significant amount of negative fluid balance. Swallow evaluation the morning. Change Lopressor to IV. The patient is having some bigeminal rhythm and cardiology is on the case. Continue bronchodilators. Repeat chest x-ray in the morning. Monitor cardiac pulmonary status in the ICU. We'll continue to follow make further recommendations based on his progress.
[2018-09-03 16:54] LABS: Glucose,Whole Blood 71 mg/dL (75-99)
[2018-09-03] MEDS ORDERED: ACETAMINOPHEN IV (For NPO) 1,000 MG in EMPTY BAG 1 BAG IVPB PRN (17:32)
--- NOTE | 2018-09-03 19:37 | P.PN ---
Subjective 78-year-old gentleman who is seen in the ICU. Patient is currently intubated. Patient initially is transferred from another facility on 08/21/2018. He was diagnosed with non-STEMI. He went for cardiac cath and underwent successful stenting of the distal right RCA and PDA branch of the coronary artery. He developed transient occlusion of the distal branches which were opened up. Patient went into complete heart block and received transfusion his pacemaker. Patient was brought to the incentive care unit. In the ICU he developed chest discomfort again hypertension and he was a came back to the chemistry laboratory technician. He received intra-aortic balloon pump and stenting of the saphenous vein graft to the obtuse marginal branch of the circumflex. He was at this time intubated and put on ventilator. Patient is still on ventilator. Sedated On 08/29/2018 Patient intubated and sedated Weaning trial 08/30/2018 Patient still intubated Weaning trial in progress On a sedation holiday right now 08/31/2018 Patient still intubated Sugars continue to be in 200s Continue weaning trial. He was not tolerating the sedation holiday, he was put on very small amount of sedation this morning 09/01/2018 Patient extubated today Patient on diuresis 09/02/2018 Patient was sleeping at the time examination He is on 10 L oxygen. He is following simple commands and moving all of his extremities 09/03/2018 Pt was getting cleaned at the timeof my examination He seems more resonsive today no chest pain, no racing heart Less sob,cough better On 5l oxygen today Objective - Vital Signs Vital signs: Vital Signs Temp 97.5 F L 09/03/18 16:00 Pulse 72 09/03/18 19:00 Resp 18 09/03/18 19:00 BP 125/66 09/03/18 19:00 Pulse Ox 90 L 09/03/18 19:00 Intake & Output 09/03/18 09/03/18 09/04/18 06:59 18:59 06:59 Intake Total 1112 320 Output Total 3925 4818 Balance -683 -805 Weight 90.7 kg 90.7 kg Intake: IV 1112 320 0.9 Nacl @ 20 ml/hr KVO 240 240 Arterial Sheath pressure 72 30 bag Cefepime 2 gm In Sodium 100 Chloride 0.9% 100 ml @ 200 mls/hr IVPB Q12HR [facility] Rx#:[id number] Potassium Chloride 10 meq 400 In Water For Injection 1 100ml.bag @ 100 mls/hr IVPB Q1H [facility] Rx#: [id number] Potassium Chloride 20 meq 50 50 In Water For Injection 1 100ml.bag @ 50 mls/hr IVPB Q2H [facility] Rx#: [id number] Vancomycin 1,500 mg In 250 Sodium Chloride 0.9% 250 ml @ 125 mls/hr IVPB Q16H [facility] Rx#:[id number] Output: Urine 1795 1125 Other: Voiding Method Indwelling Catheter Indwelling Catheter ABP, PAP, CO, CI - Last Documented Arterial Blood Pressure 117/60 - Exam On exam, patient extubated, awake NECK: No JVD. No thyroid enlargement. No LNs CARDIOVASCULAR: S1-S2 positive RESPIRATION: Breath sounds diminished in the bases. No rhonchi or crackles. No bronchial breathing. ABDOMEN: Soft, nontender . No guarding. no masses palpable. No ascites, No hepatosplenomegaly.Bowel sounds heard. LEGS: No edema. no swelling NERVOUS SYSTEM: Patient is extubated. Patient is awake and shows no focal neurological deficits Skin: no ulcer no rash - Labs CBC & Chem 7: 09/03/18 04:28 09/03/18 11:16 Labs: Abnormal Lab Results - Last 24 Hours (Table) 09/02/18 09/03/18 09/03/18 Range/Units 23:43 04:28 04:28 WBC 15.9 H (3.8-10.6) k/uL RBC 3.87 L (4.30-5.90) m/uL Hgb 11.7 L (13.0-17.5) gm/dL Hct 35.9 L (39.0-53.0) % Neutrophils # 12.6 H (1.3-7.7) k/uL Chloride 112 H (98-107) mmol/L Carbon Dioxide 20 L (22-30) mmol/L BUN 28 H (9-20) mg/dL Glucose 140 H (74-99) mg/dL POC Glucose (mg/dL) 103 H (75-99) mg/dL 09/03/18 09/03/18 09/03/18 Range/Units 04:42 08:05 11:15 WBC (3.8-10.6) k/uL RBC (4.30-5.90) m/uL Hgb (13.0-17.5) gm/dL Hct (39.0-53.0) % Neutrophils # (1.3-7.7) k/uL Chloride (98-107) mmol/L Carbon Dioxide (22-30) mmol/L BUN (9-20) mg/dL Glucose (74-99) mg/dL POC Glucose (mg/dL) 126 H 145 H 170 H (75-99) mg/dL 09/03/18 Range/Units 16:50 WBC (3.8-10.6) k/uL RBC (4.30-5.90) m/uL Hgb (13.0-17.5) gm/dL Hct (39.0-53.0) % Neutrophils # (1.3-7.7) k/uL Chloride (98-107) mmol/L Carbon Dioxide (22-30) mmol/L BUN (9-20) mg/dL Glucose (74-99) mg/dL POC Glucose (mg/dL) 71 L (75-99) mg/dL Assessment and Plan Assessment: - acute respiratory failure requiring intubation now extubated - non-STEMI - Cardiogenic shock requiring balloon pump support which has been removed - Complete heart block requiring temporary venous pacemaker - Diabetes - Hyperlipidemia - Acute renal failure - NE - hypertension Plan 08/28/2018 - Continue icU and management as per inventory worker - Cardiology on board, patient recommendations - on Lasix - We'll monitor the labs - DVT and GI prophylaxis - We'll follow up on the patient 08/29/2018 Continue ventilatory support Appreciated ICU recommendations He started on Lasix 40 every 8 Cardiology is following the patient We'll continue to monitor 08/30/2018 - Continue Lasix as per cardiology - ICU management appreciated - Continue rest of the medical care - Weaning trial in progress - We will follow the patient 08/31/2018 - Continue Lasix - Weaning trial in progress - His blood sugars were high. His long-acting insulin was changed from 14 to 18 daily. we'll see how he response. - We'll continue rest of the medical care - Continue vent support at the time - We will follow with the patient 09/01/2018 - Patient extubated today - Continue Lasix - Continue blood sugar control. His Lantus was increased from 14-18 units this morning - Continue rest of the medical care - We'll follow up on the patient 09/02/2018 - We'll continue to monitor in the ICU patient still requiring high oxygen - Continue IV antibiotics - We'll continue Lasix - Continue rest of the medical care - We will follow the patient 09/03/2018 - Pt slowly improving - On 5 l today - On antibiotics vanco and cefepime till pna ruled out - Lasix dose reduced today - To get swallow eval - Cardio follwoing the patient, on iv lopressor - might or might not qualify for pacemaker, cadrio to recommend.
[2018-09-03 20:59] LABS: Glucose,Whole Blood 79 mg/dL (75-99)
[2018-09-03 23:30] LABS: Glucose,Whole Blood 96 mg/dL (75-99)
[2018-09-04 04:47] LABS: Glucose,Whole Blood 146 mg/dL (75-99)
[2018-09-04] MEDS: INSULIN ASPART (NovoLOG) 100 UNIT/ML VIAL SQ SCH ×5 (04:47→20:37)
[2018-09-04 05:46] LABS: Basophils # (A) 0.1 k/uL (0-0.2); Basophils % (A) 1 %; Eosinophils # (A) 0.1 k/uL (0-0.7); Eosinophils % (A) 1 %; HGB 12.4 gm/dL (13.0-17.5); Hypochromasia Slight; Lymphocytes # (A) 1.4 k/uL (1.0-4.8); Lymphocytes % (A) 11 %; MCH 30.2 pg (25.0-35.0); MCHC 31.7 g/dL (31.0-37.0); MCV 95.3 fL (80.0-100.0); Mean Platelet Volume 10.1; Monocytes # (A) 0.8 k/uL (0-1.0); Monocytes % (A) 6 %; Neutrophils # (A) 10.1 k/uL (1.3-7.7); Neutrophils % (A) 78 %; Platelet Count 366 k/uL (150-450); RBC 4.09 m/uL (4.30-5.90); RDW 14.9 % (11.5-15.5); WBC 12.9 k/uL (3.8-10.6)
[2018-09-04 05:54] LABS: African American GFR (CKD) >90 (>60 ml/min/1.73 sqM); Anion Gap 14 mmol/L; Blood Urea Nitrogen 26 mg/dL (9-20); Calcium 9.3 mg/dL (8.4-10.2); Carbon Dioxide 19 mmol/L (22-30); Chloride 113 mmol/L (98-107); Glucose 134 mg/dL (74-99); Phosphorus 3.9 mg/dL (2.5-4.5); Potassium 3.6 mmol/L (3.5-5.1); Sodium 146 mmol/L (137-145)
[2018-09-04] MEDS: POTASSIUM CHLORIDE 10 MEQ in WATER FOR INJECTION 1 100ML.BAG IVPB SCH ×4 (06:37→16:39)
[2018-09-04] MEDS ORDERED: VANCOMYCIN TROUGH DUE 1 EACH MISC MISCELLANE ONE (08:00)
--- NOTE | 2018-09-04 08:44 | XR ---
EXAMINATION TYPE: XR chest 1V portable DATE OF EXAM: 09/04/2018 COMPARISON: 09/03/2018 HISTORY: Shortness of breath TECHNIQUE: Single frontal view of the chest is obtained. FINDINGS: Left-sided central line seen and there is an interstitial pattern with cardiomegaly and bi basilar consolidation. Small bilateral effusions. Postsurgical changes. No pneumothorax. Arthropathy of the shoulders. IMPRESSION: 1. Stable chest x-ray most suggestive of mild venous congestion. Underlying pneumonia not entirely ex cluded.
[2018-09-04 08:46] LABS: Glucose,Whole Blood 132 mg/dL (75-99)
[2018-09-04] MEDS: IPRATROPIUM-ALBUTEROL 3 ML NEB INHALATION SCH ×4 (08:48→21:04)
[2018-09-04] MEDS: FUROSEMIDE 10 MG/ML 2 ML VIAL IV SCH (08:50)
[2018-09-04] MEDS: HEPARIN SODIUM,PORCINE 5,000 UNIT/ML 1 ML VIAL SQ SCH ×3 (08:50→23:39)
[2018-09-04] MEDS: PANTOPRAZOLE 40 MG/10 ML VIAL IVP SCH (08:50)
[2018-09-04] MEDS: CEFEPIME 2 GM in SODIUM CHLORIDE 0.9% 100 ML IVPB SCH ×2 (08:50→20:36)
[2018-09-04] MEDS: PREVAGEN PO SCH (08:51)
[2018-09-04] MEDS: SPIRONOLACTONE 25 MG TAB PO SCH ×2 (08:51→09:41)
[2018-09-04] MEDS: MULTIVITAMINS, THERA 1 EACH TAB PO SCH ×2 (08:51→09:42)
[2018-09-04] MEDS: amLODIPine 5 MG TAB PO SCH ×2 (08:55→09:41)
[2018-09-04] MEDS: METOPROLOL TARTRATE 5 MG/5 ML VIAL IVP SCH ×3 (08:57→23:38)
[2018-09-04] MEDS: INSULIN DETEMIR (LEVEMIR) 100 UNIT/ML SYR SQ SCH (08:58)
[2018-09-04] MEDS: ATORVASTATIN 40 MG TAB PO SCH ×2 (08:59→09:42)
[2018-09-04] MEDS: CLOPIDOGREL 75 MG TAB PO SCH ×2 (08:59→09:42)
[2018-09-04] MEDS: LISINOPRIL 5 MG TAB PO SCH ×3 (08:59→20:37)
[2018-09-04] MEDS: ASPIRIN 81 MG PO SCH ×2 (08:59→09:41)
[2018-09-04] MEDS: VANCOMYCIN 1,500 MG in SODIUM CHLORIDE 0.9% 250 ML IVPB SCH (09:32)
[2018-09-04 12:01] LABS: Glucose,Whole Blood 202 mg/dL (75-99)
--- NOTE | 2018-09-04 12:23 | P.PN ---
Subjective Progress Note Date: 09/04/18 Principal diagnosis: Acute non-ST elevation myocardial infarction and acute hypoxic respiratory failure secondary to cardiogenic shock. There is evaluation of 08/28/2018 I'm seeing this patient for a follow-up. This patient is known to have coronary artery disease and the patient came an acute non-STEMI and the patient underwent a emergent stenting of the RCA and subsequently had to be taken back to the [facility] where the patient underwent stenting of the PDA branch of the RCA and PCI and stenting of the saphenous vein graft to up to is marginal. The patient's course was complicated by cardiogenic shock from which the patient recovered and intra-aortic balloon pump was removed. He also developed acute kidney injury from which she recovered. The patient is known to have diabetes mellitus type 2, prostate cancer, chronic back pain, hyperlipidemia, hypertension and previous history of dementia. The patient remains intubated on a mechanical ventilator. This morning the patient and assist control mode of ventilation with a rate of 16 with a tidal volume of 450-50% with a PEEP of 16. Note That Earlier This Morning Showed a pH of 7.50 with a PCO2 of 36 and PO2 of 56. The Chest X-Ray from Today from Today Showing Adequate Positioning of the ET Tube. No Evidence of Any Pneumothorax. There is bibasilar pulmonary infiltrates seen. The patient's CVP was around 10. I started him on Lasix if he was started on Lasix 40 mg IV every 8 hours. Meanwhile, the patient's rhythm was slightly tachycardic today. EKG was done and the patient was found to have right bundle branch block pattern within a A. fib rhythm. The patient is currently on dopamine at 3 g per KG per minute. His renal function is improved. He is afebrile. He is tolerating his tube feed s which is at goal with vital high protein at the rate of 30 mL an hour. He is producing adequate amount of urine output. The patient is afebrile. The patient is maintaining a normal renal function at creatinine of 0.8. The acute kidney injury is improved. No significant leukocytosis. No other significant events overnight otherwise for now. Reevaluated today on 09/04/2018, patient is off mechanical ventilation for the last 2 days, on room air, in no distress, patient is asymptomatic. He is hemodynamically stable, chest x-ray showed mild venous congestion, labs including CBC and basic metabolic profile renal profile are normal. All his meds were reviewed. And I plan to transfer the patient out of the ICU to a monitor bed on selective. Objective - Vital Signs Vital signs: Vital Signs Temp 98.5 F 09/04/18 08:00 Pulse 71 09/04/18 11:00 Resp 26 H 09/04/18 11:00 BP 134/74 09/04/18 11:00 Pulse Ox 90 L 09/04/18 10:00 Intake & Output 09/03/18 09/04/18 09/04/18 18:59 06:59 18:59 Intake Total 320 428 554 Output Total 1125 1050 655 Balance -805 -622 -101 Weight 90.7 kg 87.9 kg Intake: IV 320 328 204 0.9 Nacl @ 20 ml/hr KVO 240 250 80 Arterial Sheath pressure 30 78 24 bag Cefepime 2 gm In Sodium 100 Chloride 0.9% 100 ml @ 200 mls/hr IVPB Q12HR [facility] Rx#:[id number] Potassium Chloride 20 meq 50 In Water For Injection 1 100ml.bag @ 50 mls/hr IVPB Q2H [facility] Rx#: [id number] Intake, IV Titration 100 350 Amount Potassium Chloride 10 meq 100 100 In Water For Injection 1 100ml.bag @ 100 mls/hr IVPB Q1H [facility] Rx#: [id number] Vancomycin 1,500 mg In 250 Sodium Chloride 0.9% 250 ml @ 125 mls/hr IVPB Q12HR [facility] Rx#:[id number] Output: Urine 1125 1050 655 Other: Voiding Method Indwelling Catheter Indwelling Catheter Indwelling Catheter ABP, PAP, CO, CI - Last Documented Arterial Blood Pressure 113/51 - Exam Physical Exam: Revealed 78-year-old white male pleasant in no distress. Head: Atraumatic, normocephalic. HEENT:[Neck is supple.] [No neck masses.] [No thyromegaly.] [No JVD.] Chest: [Clear throughout, no crackles, no rhonchi, no wheezes.] Cardiac Exam: [Normal S1 and S2, no S3 gallop, no murmur.] Abdomen: [Soft, nontender, no megaly, no rebound, no guarding, normal bowel sounds.] Extremities: [No clubbing, no edema, no cyanosis.] Neurological Exam: [No focal neurologic deficit.] Psychiatric: Normal mood affect and normal mental status examination. Skin: No rashes. Lymphatics: No lymphadenopathy. - Labs CBC & Chem 7: 09/04/18 05:24 09/04/18 05:24 Labs: Abnormal Lab Results - Last 24 Hours (Table) 09/03/18 09/04/18 09/04/18 Range/Units 16:50 04:43 05:24 WBC (3.8-10.6) k/uL RBC (4.30-5.90) m/uL Hgb (13.0-17.5) gm/dL Neutrophils # (1.3-7.7) k/uL Sodium 146 H (137-145) mmol/L Chloride 113 H (98-107) mmol/L Carbon Dioxide 19 L (22-30) mmol/L BUN 26 H (9-20) mg/dL Glucose 134 H (74-99) mg/dL POC Glucose (mg/dL) 71 L 146 H (75-99) mg/dL 09/04/18 09/04/18 09/04/18 Range/Units 05:24 08:21 11:58 WBC 12.9 H (3.8-10.6) k/uL RBC 4.09 L (4.30-5.90) m/uL Hgb 12.4 L (13.0-17.5) gm/dL Neutrophils # 10.1 H (1.3-7.7) k/uL Sodium (137-145) mmol/L Chloride (98-107) mmol/L Carbon Dioxide (22-30) mmol/L BUN (9-20) mg/dL Glucose (74-99) mg/dL POC Glucose (mg/dL) 132 H 202 H (75-99) mg/dL Assessment and Plan Assessment: Impression: 1 acute non-ST elevation myocardial infarction status post stenting of the RCA and PDA branch of RCA and subsequent cardiogenic shock requiring intra-aortic balloon pump placement, and intubation. 2 acute hypoxic respiratory failure secondary to cardiogenic shock 3 history of underlying coronary artery disease and previous CABG in 2008 4 multiple comorbidities including dementia, prostate cancer, renal colic, hyperlipidemia, hypertension, Recommendation: Continue present treatment plan, all his medications were reviewed, patient is hemodynamically stable, on room air, I plan to transfer the patient to a monitor bed on selective, and we will continue to follow. Time with Patient: Less than 30
[2018-09-04] MEDS: ACETAMINOPHEN TAB 325 MG TAB PO PRN ×2 (14:24→23:38)
[2018-09-04 17:38] LABS: Glucose,Whole Blood 189 mg/dL (75-99)
[2018-09-04 20:33] LABS: Glucose,Whole Blood 205 mg/dL (75-99)
[2018-09-04] MEDS: VANCOMYCIN 1,750 MG in SODIUM CHLORIDE 0.9% 500 ML 500 ML IVPB SCH (20:37)
--- NOTE | 2018-09-04 20:44 | P.PN ---
Subjective Patient is resting in bed. He is anemic. 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 His blood pressure is still elevated He denies any chest discomfort. He does not appear short of breath and wants to go home Blood pressure is elevated this morning afebrile 98F pulse rate in the 70s Blood pressure 120/68 mmHg Suggest Increase Coreg to 6.25 mg twice daily Stagger all other blood pressure medications medications Will follow Objective - Vital Signs Vital signs: Vital Signs Temp 98 F 09/04/18 20:00 Pulse 75 09/04/18 20:00 Resp 20 09/04/18 20:00 BP 119/64 09/04/18 20:00 Pulse Ox 94 L 09/04/18 20:00 Intake & Output 09/04/18 09/04/18 09/05/18 06:59 18:59 06:59 Intake Total 428 1162 20 Output Total 1050 1200 35 Balance -622 -38 -15 Weight 87.9 kg Intake: IV 328 362 20 0.9 Nacl @ 20 ml/hr KVO 250 220 20 Arterial Sheath pressure 78 42 bag Cefepime 2 gm In Sodium 100 Chloride 0.9% 100 ml @ 200 mls/hr IVPB Q12HR [facility] Rx#:[id number] Intake, IV Titration 100 550 Amount Potassium Chloride 10 meq 100 100 In Water For Injection 1 100ml.bag @ 100 mls/hr IVPB Q1H [facility] Rx#: [id number] Potassium Chloride 10 meq 200 In Water For Injection 1 100ml.bag @ 100 mls/hr IVPB Q1H [facility] Rx#: [id number] Vancomycin 1,500 mg In 250 Sodium Chloride 0.9% 250 ml @ 125 mls/hr IVPB Q12HR [facility] Rx#:[id number] Oral 250 Output: Urine 1050 1200 35 Other: Voiding Method Indwelling Catheter Indwelling Catheter Indwelling Catheter ABP, PAP, CO, CI - Last Documented Arterial Blood Pressure 152/68 - Labs CBC & Chem 7: 09/04/18 05:24 09/04/18 13:30 Labs: Abnormal Lab Results - Last 24 Hours (Table) 09/04/18 09/04/18 09/04/18 Range/Units 04:43 05:24 05:24 WBC 12.9 H (3.8-10.6) k/uL RBC 4.09 L (4.30-5.90) m/uL Hgb 12.4 L (13.0-17.5) gm/dL Neutrophils # 10.1 H (1.3-7.7) k/uL Sodium 146 H (137-145) mmol/L Chloride 113 H (98-107) mmol/L Carbon Dioxide 19 L (22-30) mmol/L BUN 26 H (9-20) mg/dL Glucose 134 H (74-99) mg/dL POC Glucose (mg/dL) 146 H (75-99) mg/dL 09/04/18 09/04/18 09/04/18 Range/Units 08:21 11:58 17:01 WBC (3.8-10.6) k/uL RBC (4.30-5.90) m/uL Hgb (13.0-17.5) gm/dL Neutrophils # (1.3-7.7) k/uL Sodium (137-145) mmol/L Chloride (98-107) mmol/L Carbon Dioxide (22-30) mmol/L BUN (9-20) mg/dL Glucose (74-99) mg/dL POC Glucose (mg/dL) 132 H 202 H 189 H (75-99) mg/dL 09/04/18 Range/Units 20:29 WBC (3.8-10.6) k/uL RBC (4.30-5.90) m/uL Hgb (13.0-17.5) gm/dL Neutrophils # (1.3-7.7) k/uL Sodium (137-145) mmol/L Chloride (98-107) mmol/L Carbon Dioxide (22-30) mmol/L BUN (9-20) mg/dL Glucose (74-99) mg/dL POC Glucose (mg/dL) 205 H (75-99) mg/dL
--- NOTE | 2018-09-04 20:49 | P.PN ---
Subjective Patient is awake and fairly alert denies any chest discomfort dizziness lightheadedness This is an 78-year-old male patient with coronary artery disease status post coronary artery bypass grafting who presented with a non-Q-wave myocardial infarction and underwent multivessel stenting and then had transient heart block requiring temporary pacemaker was removed. He had a prolonged episode of intubation for respiratory failure He is undergoing a swallowing evaluation today Oral medications are on hold but he did receive aspirin and Plavix last night I spoke to the nurse and asked her to give both antiplatelet medications either orally if the swallowing evaluation is normal or via OG tube if not On examination pulse rate in the 70s he is afebrile Respirations 20 Blood pressure 119/64 mmHg Breath sounds are reduced bilaterally no rhonchi no crackles Heart sounds. Soft, without gallop or rub Abdomen soft Except is warm no edema Impression Non-Q-wave myocardial infarction status post coronary stenting multivessel Respiratory failure Unable to swallow awaiting swallowing evaluation Suggest Increase IV metoprolol to 5 mg every 8 hourly Patient should get statins and antiplatelet agents today either orally or via OG tube Discussed with nurse Objective - Vital Signs Vital signs: Vital Signs Temp 98 F 09/04/18 20:00 Pulse 75 09/04/18 20:00 Resp 20 09/04/18 20:00 BP 119/64 09/04/18 20:00 Pulse Ox 94 L 09/04/18 20:00 Intake & Output 09/04/18 09/04/18 09/05/18 06:59 18:59 06:59 Intake Total 428 1162 20 Output Total 1050 1200 35 Balance -622 -38 -15 Weight 87.9 kg Intake: IV 328 362 20 0.9 Nacl @ 20 ml/hr KVO 250 220 20 Arterial Sheath pressure 78 42 bag Cefepime 2 gm In Sodium 100 Chloride 0.9% 100 ml @ 200 mls/hr IVPB Q12HR [facility] Rx#:[id number] Intake, IV Titration 100 550 Amount Potassium Chloride 10 meq 100 100 In Water For Injection 1 100ml.bag @ 100 mls/hr IVPB Q1H [facility] Rx#: [id number] Potassium Chloride 10 meq 200 In Water For Injection 1 100ml.bag @ 100 mls/hr IVPB Q1H [facility] Rx#: [id number] Vancomycin 1,500 mg In 250 Sodium Chloride 0.9% 250 ml @ 125 mls/hr IVPB Q12HR [facility] Rx#:[id number] Oral 250 Output: Urine 1050 1200 35 Other: Voiding Method Indwelling Catheter Indwelling Catheter Indwelling Catheter ABP, PAP, CO, CI - Last Documented Arterial Blood Pressure 152/68 - Labs CBC & Chem 7: 09/04/18 05:24 09/04/18 13:30 Labs: Abnormal Lab Results - Last 24 Hours (Table) 09/04/18 09/04/18 09/04/18 Range/Units 04:43 05:24 05:24 WBC 12.9 H (3.8-10.6) k/uL RBC 4.09 L (4.30-5.90) m/uL Hgb 12.4 L (13.0-17.5) gm/dL Neutrophils # 10.1 H (1.3-7.7) k/uL Sodium 146 H (137-145) mmol/L Chloride 113 H (98-107) mmol/L Carbon Dioxide 19 L (22-30) mmol/L BUN 26 H (9-20) mg/dL Glucose 134 H (74-99) mg/dL POC Glucose (mg/dL) 146 H (75-99) mg/dL 09/04/18 09/04/18 09/04/18 Range/Units 08:21 11:58 17:01 WBC (3.8-10.6) k/uL RBC (4.30-5.90) m/uL Hgb (13.0-17.5) gm/dL Neutrophils # (1.3-7.7) k/uL Sodium (137-145) mmol/L Chloride (98-107) mmol/L Carbon Dioxide (22-30) mmol/L BUN (9-20) mg/dL Glucose (74-99) mg/dL POC Glucose (mg/dL) 132 H 202 H 189 H (75-99) mg/dL 09/04/18 Range/Units 20:29 WBC (3.8-10.6) k/uL RBC (4.30-5.90) m/uL Hgb (13.0-17.5) gm/dL Neutrophils # (1.3-7.7) k/uL Sodium (137-145) mmol/L Chloride (98-107) mmol/L Carbon Dioxide (22-30) mmol/L BUN (9-20) mg/dL Glucose (74-99) mg/dL POC Glucose (mg/dL) 205 H (75-99) mg/dL
--- NOTE | 2018-09-04 22:53 | P.PN ---
Progress Note - Text Progress Note Date: 09/04/18 Chief Complaint: chest pain Interval history: This is a 78-year-old patientof Dr. Dean Evangelista.chronic stable medical conditions include diabetes, hyperlipidemia, hypertension, osteoarthritis, obstructive sleep apnea. Patient's a prior history of coronary bypass. Patient presented to [facility] of with an acute non-Q-wave NC. He did undergo cardiac catheterization was found to have significant coronary artery disease. Patient was subsequently transferredhere yesterday for coronary intervention.patient was taken to the cardiac greenhouse laborer. Intervention was carried out. Patient did not have a very smooth course and subsequently patient was transferred to the ICU subsequently. Status post on the ventilator Today-in the ICU. Poor oral intake. May answer occasional question. Pains in bed. Reasonable urine output. Telemetry shows sinus rhythm. Review of systems: Attempted but patient hardly answers questions Current medications reviewed that included: DuoNeb, Norvasc, aspirin, IV cefepime, IV Lasix 20 mg, Zestril, Lopressor 5 mg every 8, IV vancomycin Physical examination: VITAL SIGNS: 98, 75, 20, 119/64, 94% on room air GENERAL: Laying in bed, awake tired appearing. EYES: [Pupils equal. Conjunctiva pale]l. HEENT: [External appearance of nose and ears normal, . NECK: [JVD unable to assess; masses not palpable]. HEART: [First and second heart sounds are normal; no edema]. LUNGS:[ Respiratory rate increase; decreased breath soundn]. ABDOMEN: [Soft, nontender, liver spleen not palpable, no masses palpable]. PSYCH: [Berta answering questions l. NEUROLOGICAL: [Cranial nerves grossly intact; no facial asymmetry, does move about Investigations, reviewed in the clinical context: White count 12.9, hemoglobin 12.4, potassium 3.6, creatinine 0.76 Accu-Cheks noted Assessment: -Acute non-Q-wave myocardial infarction -Coronary artery disease with severe significant disease to the left main and right coronary artery. 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 sleep apnea -Chronic bladder outflow obstruction -Severe metabolic acidosis multifactorial -Acute renal failure possibly ATN from cardiorenal syndrome from cardiogenic shock, corrected -Thrombocytopenia, new onset patient is on antiplatelet agents -Acute metabolic encephalopathy, slowly improving Plan: Continue current medication treatment plan. Patient can be moved out to the medical floor to the telemetry floor. Prognosis remains guarded. PTOT of the case. Follow Accu-Cheks closely
[2018-09-05] MEDS: ACETAMINOPHEN TAB 325 MG TAB PO PRN ×3 (04:28→18:45)
[2018-09-05 05:20] LABS: HCT 35.7 % (39.0-53.0); HGB 11.8 gm/dL (13.0-17.5); MCH 29.9 pg (25.0-35.0); MCHC 32.9 g/dL (31.0-37.0); MCV 90.8 fL (80.0-100.0); Mean Platelet Volume 9.4; Platelet Count 394 k/uL (150-450); RBC 3.94 m/uL (4.30-5.90); RDW 14.5 % (11.5-15.5); WBC 11.1 k/uL (3.8-10.6)
[2018-09-05 05:33] LABS: African American GFR (CKD) >90 (>60 ml/min/1.73 sqM); Anion Gap 8 mmol/L; Blood Urea Nitrogen 21 mg/dL (9-20); Calcium 8.9 mg/dL (8.4-10.2); Carbon Dioxide 24 mmol/L (22-30); Chloride 112 mmol/L (98-107); Glucose 212 mg/dL (74-99); Potassium 3.3 mmol/L (3.5-5.1); Sodium 144 mmol/L (137-145)
[2018-09-05] MEDS: POTASSIUM CHLORIDE ER 20 MEQ TAB.ER PO SCH ×4 (06:55→18:31)
[2018-09-05] MEDS: INSULIN ASPART (NovoLOG) 100 UNIT/ML VIAL SQ SCH ×4 (07:02→22:17)
[2018-09-05] MEDS: IPRATROPIUM-ALBUTEROL 3 ML NEB INHALATION SCH ×4 (07:14→19:20)
[2018-09-05 07:23] LABS: Glucose,Whole Blood 204 mg/dL (75-99)
[2018-09-05] MEDS: METOPROLOL TARTRATE 5 MG/5 ML VIAL IVP SCH (08:47)
[2018-09-05] MEDS: HEPARIN SODIUM,PORCINE 5,000 UNIT/ML 1 ML VIAL SQ SCH ×2 (08:47→16:57)
[2018-09-05] MEDS: ATORVASTATIN 40 MG TAB PO SCH (08:48)
[2018-09-05] MEDS: CLOPIDOGREL 75 MG TAB PO SCH (08:48)
[2018-09-05] MEDS: CEFEPIME 2 GM in SODIUM CHLORIDE 0.9% 100 ML IVPB SCH ×3 (08:48→22:55)
[2018-09-05] MEDS: ASPIRIN 81 MG PO SCH (08:48)
[2018-09-05] MEDS: amLODIPine 5 MG TAB PO SCH (08:48)
[2018-09-05] MEDS: PANTOPRAZOLE 40 MG/10 ML VIAL IVP SCH (08:49)
[2018-09-05] MEDS: MULTIVITAMINS, THERA 1 EACH TAB PO SCH (08:49)
[2018-09-05] MEDS: FUROSEMIDE 10 MG/ML 2 ML VIAL IV SCH (08:49)
[2018-09-05] MEDS: LISINOPRIL 5 MG TAB PO SCH ×2 (08:49→21:21)
[2018-09-05] MEDS: SPIRONOLACTONE 25 MG TAB PO SCH (08:49)
[2018-09-05] MEDS: INSULIN DETEMIR (LEVEMIR) 100 UNIT/ML SYR SQ SCH (08:49)
[2018-09-05] MEDS: VANCOMYCIN 1,750 MG in SODIUM CHLORIDE 0.9% 500 ML 500 ML IVPB SCH ×2 (09:15→21:22)
--- NOTE | 2018-09-05 11:29 | P.PN ---
Subjective Progress Note Date: 09/05/18 Principal diagnosis: Acute non-ST elevation myocardial infarction and acute hypoxic respiratory failure secondary to cardiogenic shock. There is evaluation of 08/28/2018 I'm seeing this patient for a follow-up. This patient is known to have coronary artery disease and the patient came an acute non-STEMI and the patient underwent a emergent stenting of the RCA and subsequently had to be taken back to the [facility] where the patient underwent stenting of the PDA branch of the RCA and PCI and stenting of the saphenous vein graft to up to is marginal. The patient's course was complicated by cardiogenic shock from which the patient recovered and intra-aortic balloon pump was removed. He also developed acute kidney injury from which she recovered. The patient is known to have diabetes mellitus type 2, prostate cancer, chronic back pain, hyperlipidemia, hypertension and previous history of dementia. The patient remains intubated on a mechanical ventilator. This morning the patient and assist control mode of ventilation with a rate of 16 with a tidal volume of 450-50% with a PEEP of 16. Note That Earlier This Morning Showed a pH of 7.50 with a PCO2 of 36 and PO2 of 56. The Chest X-Ray from Today from Today Showing Adequate Positioning of the ET Tube. No Evidence of Any Pneumothorax. There is bibasilar pulmonary infiltrates seen. The patient's CVP was around 10. I started him on Lasix if he was started on Lasix 40 mg IV every 8 hours. Meanwhile, the patient's rhythm was slightly tachycardic today. EKG was done and the patient was found to have right bundle branch block pattern within a A. fib rhythm. The patient is currently on dopamine at 3 g per KG per minute. His renal function is improved. He is afebrile. He is tolerating his tube feed s which is at goal with vital high protein at the rate of 30 mL an hour. He is producing adequate amount of urine output. The patient is afebrile. The patient is maintaining a normal renal function at creatinine of 0.8. The acute kidney injury is improved. No significant leukocytosis. No other significant events overnight otherwise for now. Reevaluated today on 09/04/2018, patient is off mechanical ventilation for the last 2 days, on room air, in no distress, patient is asymptomatic. He is hemodynamically stable, chest x-ray showed mild venous congestion, labs including CBC and basic metabolic profile renal profile are normal. All his meds were reviewed. And I plan to transfer the patient out of the ICU to a monitor bed on . Reevaluated today on 09/15/2018, patient remains off mechanical ventilation, on room air, relatively asymptomatic, in no form of distress. Patient is hemodynamically stable, he may have slight confusion at times, but overall the patient is doing better than expected. Remains on the same cardiac meds, being followed by many consultants including cardiology. Labs from today were all reviewed, potassium is a bit low at 3.3, being corrected as per protocol. No chest x-ray was done today, chest x-ray from yesterday showed mild venous congestion only. Objective - Vital Signs Vital signs: Vital Signs Temp 97.4 F L 09/05/18 08:00 Pulse 79 09/05/18 08:00 Resp 11 L 09/05/18 08:00 BP 129/71 09/05/18 08:00 Pulse Ox 94 L 09/05/18 08:00 Intake & Output 09/04/18 09/05/18 09/05/18 18:59 06:59 18:59 Intake Total 1162 800 520 Output Total 1200 760 230 Balance -38 40 290 Weight 89.8 kg 89.8 kg Intake: IV 362 800 420 0.9 Nacl @ 20 ml/hr KVO 220 200 20 Arterial Sheath pressure 42 bag Cefepime 2 gm In Sodium 100 100 100 Chloride 0.9% 100 ml @ 200 mls/hr IVPB Q12HR [facility] Rx#:[id number] Vancomycin 1,750 mg In 500 300 Sodium Chloride 0.9% 500 ml 500 ml @ 167 mls/hr IVPB Q12H [facility] Rx#: [id number] Intake, IV Titration 550 Amount Potassium Chloride 10 meq 100 In Water For Injection 1 100ml.bag @ 100 mls/hr IVPB Q1H [facility] Rx#: [id number] Potassium Chloride 10 meq 200 In Water For Injection 1 100ml.bag @ 100 mls/hr IVPB Q1H [facility] Rx#: [id number] Vancomycin 1,500 mg In 250 Sodium Chloride 0.9% 250 ml @ 125 mls/hr IVPB Q12HR [facility] Rx#:[id number] Oral 250 100 Output: Urine 1200 760 230 Other: Voiding Method Indwelling Catheter Indwelling Catheter Indwelling Catheter ABP, PAP, CO, CI - Last Documented Arterial Blood Pressure 152/68 - Exam Physical Exam: Revealed 78-year-old white male pleasant in no distress. On room air Head: Atraumatic, normocephalic. HEENT:[Neck is supple.] [No neck masses.] [No thyromegaly.] [No JVD.] Chest: [Clear throughout, no crackles, no rhonchi, no wheezes.] Cardiac Exam: [Normal S1 and S2, no S3 gallop, no murmur.] Abdomen: [Soft, nontender, no megaly, no rebound, no guarding, normal bowel sounds.] Extremities: [No clubbing, no edema, no cyanosis.] Neurological Exam: [No focal neurologic deficit.] Psychiatric: Normal mood affect and normal mental status examination. Skin: No rashes. Lymphatics: No lymphadenopathy. - Labs CBC & Chem 7: 09/05/18 05:15 09/05/18 05:15 Labs: Abnormal Lab Results - Last 24 Hours (Table) 09/04/18 09/04/18 09/04/18 Range/Units 11:58 17:01 20:29 WBC (3.8-10.6) k/uL RBC (4.30-5.90) m/uL Hgb (13.0-17.5) gm/dL Hct (39.0-53.0) % Potassium (3.5-5.1) mmol/L Chloride (98-107) mmol/L BUN (9-20) mg/dL Creatinine (0.66-1.25) mg/dL Glucose (74-99) mg/dL POC Glucose (mg/dL) 202 H 189 H 205 H (75-99) mg/dL 09/05/18 09/05/18 09/05/18 Range/Units 05:15 05:15 06:57 WBC 11.1 H (3.8-10.6) k/uL RBC 3.94 L (4.30-5.90) m/uL Hgb 11.8 L (13.0-17.5) gm/dL Hct 35.7 L (39.0-53.0) % Potassium 3.3 L (3.5-5.1) mmol/L Chloride 112 H (98-107) mmol/L BUN 21 H (9-20) mg/dL Creatinine 0.61 L (0.66-1.25) mg/dL Glucose 212 H (74-99) mg/dL POC Glucose (mg/dL) 204 H (75-99) mg/dL Assessment and Plan Assessment: Impression: 1 acute non-ST elevation myocardial infarction status post stenting of the RCA and PDA branch of RCA and subsequent cardiogenic shock requiring intra-aortic balloon pump placement, and mechanical ventilation. 2 acute hypoxic respiratory failure secondary to cardiogenic shock 3 history of underlying coronary artery disease and previous CABG in 2008 4 multiple comorbidities including dementia, prostate cancer, renal colic, hyperlipidemia, hypertension, Recommendation: Continue present treatment plan, continue GI and DVT prophylaxis, amlodipine, atorvastatin, Plavix, Lasix, heparin subcu, Apresoline, insulin as per protocol, DuoNeb updrafts 4 times a day and when necessary, beta blockers, Protonix, Aldactone, likely transfer out of the ICU to a monitor bed on selective, we'll continue to follow. Continue vancomycin for MRSA in the spu jose. Time with Patient: Less than 30
[2018-09-05 12:00] LABS: Glucose,Whole Blood 267 mg/dL (75-99)
--- NOTE | 2018-09-05 15:18 | P.PN ---
Subjective Patient is resting comfortably in bed no respiratory distress no chest discomfort looks very comfortable Blood pressures 106/56. His mercury normal respirations, pulse rate in the 70s, afebrile and 6.7F Breath sounds are clear no rhonchi no crackles were history effort Normal heart sounds Abdomen is soft nontender Extremities warm Impression non-Q-wave myocardial infarction Stenting to the RCA emergently Following that the PDA branch of the RCA as well as stenting to the saphenous vein graft to the marginal was performed Course complete dictated by cardiac shock the patient is recovered well He also developed acute kidney injury for which she has made good recovery Type 2 diabetes Suggest Once the patient is able to take orally I would switch him to oral metoprolol 25 mg twice daily Continue aspirin and Plavix Continue statins Objective - Vital Signs Vital signs: Vital Signs Temp 96.7 F L 09/05/18 12:00 Pulse 65 09/05/18 12:00 Resp 14 09/05/18 12:00 BP 106/56 09/05/18 12:00 Pulse Ox 93 L 09/05/18 12:00 Intake & Output 09/04/18 09/05/18 09/05/18 18:59 06:59 18:59 Intake Total 1162 800 520 Output Total 1200 760 480 Balance -38 40 40 Weight 89.8 kg 89.8 kg Intake: IV 362 800 420 0.9 Nacl @ 20 ml/hr KVO 220 200 20 Arterial Sheath pressure 42 bag Cefepime 2 gm In Sodium 100 100 100 Chloride 0.9% 100 ml @ 200 mls/hr IVPB Q12HR AALIYAH Rx#:[id number] Vancomycin 1,750 mg In 500 300 Sodium Chloride 0.9% 500 ml 500 ml @ 167 mls/hr IVPB Q12H AAL[facility] Rx#: [id number] Intake, IV Titration 550 Amount Potassium Chloride 10 meq 100 In Water For Injection 1 100ml.bag @ 100 mls/hr IVPB Q1H AALIYAH Rx#: [id number] Potassium Chloride 10 meq 200 In Water For Injection 1 100ml.bag @ 100 mls/hr IVPB Q1H AALIYAH Rx#: [id number] Vancomycin 1,500 mg In 250 Sodium Chloride 0.9% 250 ml @ 125 mls/hr IVPB Q12HR AALIYAH Rx#:[id number] Oral 250 100 Output: Urine 1200 760 480 Other: Voiding Method Indwelling Catheter Indwelling Catheter Indwelling Catheter # Bowel Movements 1 ABP, PAP, CO, CI - Last Documented Arterial Blood Pressure 152/68 - Labs CBC & Chem 7: 09/05/18 05:15 09/05/18 13:50 Labs: Abnormal Lab Results - Last 24 Hours (Table) 09/04/18 09/04/18 09/05/18 Range/Units 17:01 20:29 05:15 WBC (3.8-10.6) k/uL RBC (4.30-5.90) m/uL Hgb (13.0-17.5) gm/dL Hct (39.0-53.0) % Potassium 3.3 L (3.5-5.1) mmol/L Chloride 112 H (98-107) mmol/L BUN 21 H (9-20) mg/dL Creatinine 0.61 L (0.66-1.25) mg/dL Glucose 212 H (74-99) mg/dL POC Glucose (mg/dL) 189 H 205 H (75-99) mg/dL 09/05/18 09/05/18 09/05/18 Range/Units 05:15 06:57 11:58 WBC 11.1 H (3.8-10.6) k/uL RBC 3.94 L (4.30-5.90) m/uL Hgb 11.8 L (13.0-17.5) gm/dL Hct 35.7 L (39.0-53.0) % Potassium (3.5-5.1) mmol/L Chloride (98-107) mmol/L BUN (9-20) mg/dL Creatinine (0.66-1.25) mg/dL Glucose (74-99) mg/dL POC Glucose (mg/dL) 204 H 267 H (75-99) mg/dL
[2018-09-05] MEDS: POTASSIUM BICARBONATE/CIT AC 20 MEQ TABLET.EFF NG-TUBE SCH (15:58)
[2018-09-05] MEDS: FUROSEMIDE 10 MG/ML 4 ML VIAL IV SCH (16:02)
[2018-09-05 16:41] LABS: Glucose,Whole Blood 218 mg/dL (75-99)
[2018-09-05] MEDS: QUEtiapine 25 MG TAB PO SCH (21:16)
[2018-09-05] MEDS: METOPROLOL TARTRATE 25 MG TAB PO SCH (21:21)
[2018-09-05 21:33] LABS: Glucose,Whole Blood 260 mg/dL (75-99)
--- NOTE | 2018-09-05 23:44 | P.PN ---
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 Patient's a prior history of coronary bypass. Patient presented to [facility] of with an acute non-Q-wave MA. He did undergo cardiac catheterization was found to have significant coronary artery disease. Patient was subsequently transferredhere yesterday for coronary intervention.patient was taken to the cardiac veterinary laboratory diagnostician. Intervention was carried out. Patient did not have a very smooth course and subsequently patient was transferred to the ICU subsequently. Status post on the ventilator Today-patient moved out of the ICU. Oral intake about 25%. As a bit confused and evening. Patient been a full assist. Review of systems: Attempted but patient sparingly answered questions sparingly answered questions viewed that included: DuoNeb, Norvasc, aspirin, IV cefepime, IV Lasix 20 mg, Zestril, Lopressor 5 mg every 8, IV vancomycin Physical examination: VITAL SIGNS: 98.8, 86, 16, 91/55, 95% room air GENERAL: Laying in bed, awake tired appearing. EYES: [Pupils equal. Conjunctiva pale]l. HEENT: [External appearance of nose and ears normal, . NECK: [JVD unable to assess; masses not palpable]. HEART: [First and second heart sounds are normal; no edema]. LUNGS:[ Respiratory rate increase; decreased breath soundn]. ABDOMEN: [Soft, nontender, liver spleen not palpable, no masses palpable]. PSYCH: [On 6 some questions l. NEUROLOGICAL: [Cranial nerves grossly intact; no facial asymmetry, does move about Investigations, reviewed in the clinical context: White count 11.1, hemoglobin 11.8, potassium 3.3, BNP 21, creatinine 0.61 Assessment: -Acute non-Q-wave myocardial infarction -Coronary artery disease with severe significant disease to the left main and right coronary artery. 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 sleep apnea -Chronic bladder outflow obstruction -Severe metabolic acidosis multifactorial -Acute renal failure possibly ATN from cardiorenal syndrome from cardiogenic shock, corrected -Thrombocytopenia, new onset patient is on antiplatelet agents -Acute metabolic encephalopathy, slowly improving Plan: We'll switch patient over to Bactrim DS. Is unclear about patient listed ALLERGY. Patient will be monitored about the same. Looking and patient got to the rehab. Replace potassium. Will add 25 mg of seroquel at night
[2018-09-06] MEDS: HEPARIN SODIUM,PORCINE 5,000 UNIT/ML 1 ML VIAL SQ SCH ×4 (01:39→22:05)
[2018-09-06] MEDS: ACETAMINOPHEN TAB 325 MG TAB PO PRN ×4 (02:02→22:10)
[2018-09-06 06:39] LABS: Glucose,Whole Blood 210 mg/dL (75-99)
[2018-09-06] MEDS: INSULIN ASPART (NovoLOG) 100 UNIT/ML VIAL SQ SCH ×4 (07:19→22:06)
[2018-09-06] MEDS: IPRATROPIUM-ALBUTEROL 3 ML NEB INHALATION SCH ×4 (07:32→20:19)
[2018-09-06] MEDS ORDERED: VANCOMYCIN TROUGH DUE 1 EACH MISC MISCELLANE ONE (08:00)
[2018-09-06 08:20] LABS: African American GFR (CKD) >90 (>60 ml/min/1.73 sqM); Anion Gap 7 mmol/L; Blood Urea Nitrogen 16 mg/dL (9-20); Calcium 9.1 mg/dL (8.4-10.2); Carbon Dioxide 26 mmol/L (22-30); Chloride 111 mmol/L (98-107); Glucose 232 mg/dL (74-99); Sodium 144 mmol/L (137-145)
[2018-09-06] MEDS: CLOPIDOGREL 75 MG TAB PO SCH (08:32)
[2018-09-06] MEDS: PANTOPRAZOLE 40 MG/10 ML VIAL IVP SCH (08:32)
[2018-09-06] MEDS: LISINOPRIL 5 MG TAB PO SCH ×2 (08:32→22:06)
[2018-09-06] MEDS: SPIRONOLACTONE 25 MG TAB PO SCH (08:32)
[2018-09-06] MEDS: ASPIRIN 81 MG PO SCH (08:32)
[2018-09-06] MEDS: amLODIPine 5 MG TAB PO SCH (08:32)
[2018-09-06] MEDS: SULFAMETHOX-TMP 800-160MG 1 EACH TAB PO SCH ×2 (08:32→22:06)
[2018-09-06] MEDS: MULTIVITAMINS, THERA 1 EACH TAB PO SCH (08:32)
[2018-09-06] MEDS: METOPROLOL TARTRATE 25 MG TAB PO SCH ×2 (08:32→22:06)
[2018-09-06] MEDS: FUROSEMIDE 10 MG/ML 2 ML VIAL IV SCH (08:32)
[2018-09-06] MEDS: ATORVASTATIN 40 MG TAB PO SCH (08:32)
--- NOTE | 2018-09-06 12:07 | P.PN ---
Subjective Progress Note Date: 09/06/18 This is an 78-year-old gentleman who presented to the hospital with an acute non-Q-wave myocardial infarction, underwent emergent stenting of the RCA with subsequent stenting of the PDA branch of the RCA as well as saphenous vein graft to the marginal complicated by cardiogenic shock. Patient was seen and examined on the telemetry unit today, lying comfortably in bed, no difficulty in breathing, or, his is at bedside. He does have a sitter at bedside. Blood pressure 120/60 with a heart rate in the 80s, 95% on room air. Sodium 144, potassium 4.0, BUN 16 and creatinine 0.6. We will discontinue the IV Lasix today and start the patient on Lasix 20 mg daily, continue the rest of the patient's medications. Objective - Vital Signs Vital signs: Vital Signs Temp 98.3 F 09/06/18 08:00 Pulse 83 09/06/18 08:00 Resp 18 09/06/18 08:00 BP 120/63 09/06/18 08:00 Pulse Ox 95 09/06/18 08:00 Intake & Output 09/05/18 09/06/18 09/06/18 18:59 06:59 18:59 Intake Total 880 Output Total 480 1 300 Balance 400 -1 -300 Weight 89.8 kg 89.5 kg Intake: IV 420 0.9 Nacl @ 20 ml/hr KVO 20 Cefepime 2 gm In Sodium 100 Chloride 0.9% 100 ml @ 200 mls/hr IVPB Q12HR [facility]AL[facility] Rx#:[id number] Vancomycin 1,750 mg In 300 Sodium Chloride 0.9% 500 ml 500 ml @ 167 mls/hr IVPB Q12H [facility]ALI[facility] Rx#: [id number] Oral 460 Output: Urine 480 1 300 Other: Voiding Method Diaper Urinal Incontinent Diaper Incontinent # Voids 1 # Bowel Movements 1 1 ABP, PAP, CO, CI - Last Documented Arterial Blood Pressure 152/68 - Exam Physical Exam: Revealed 78-year-old white male pleasant in no distress. On room air Head: Atraumatic, normocephalic. HEENT:[Neck is supple.] [No neck masses.] [No thyromegaly.] [No JVD.] Chest: [Clear throughout, no crackles, no rhonchi, no wheezes.] Cardiac Exam: [Normal S1 and S2, no S3 gallop, no murmur.] Abdomen: [Soft, nontender, no megaly, no rebound, no guarding, normal bowel sounds.] Extremities: [No clubbing, no edema, no cyanosis.] Neurological Exam: [No focal neurologic deficit.] Psychiatric: Normal mood affect and normal mental status examination. Skin: No rashes. Lymphatics: No lymphadenopathy. - Labs CBC & Chem 7: 09/05/18 05:15 09/06/18 07:52 Labs: Abnormal Lab Results - Last 24 Hours (Table) 09/05/18 09/05/18 09/05/18 Range/Units 11:58 16:38 21:32 Chloride (98-107) mmol/L Creatinine (0.66-1.25) mg/dL Glucose (74-99) mg/dL POC Glucose (mg/dL) 267 H 218 H 260 H (75-99) mg/dL 09/06/18 09/06/18 Range/Units 06:37 07:52 Chloride 111 H (98-107) mmol/L Creatinine 0.61 L (0.66-1.25) mg/dL Glucose 232 H (74-99) mg/dL POC Glucose (mg/dL) 210 H (75-99) mg/dL Assessment and Plan Plan: Impression: 1 acute non-ST elevation myocardial infarction status post stenting of the RCA and PDA branch of RCA and subsequent cardiogenic shock requiring intra-aortic balloon pump placement, and mechanical ventilation. 2 acute hypoxic respiratory failure secondary to cardiogenic shock 3 history of underlying coronary artery disease and previous CABG in 2008 4 multiple comorbidities including dementia, prostate cancer, renal colic, hyperlipidemia, hypertension Plan From cardiology's perspective, we will discontinue the IV Lasix today and start the patient on oral diuretics. Continue the rest of the patient's medications. DNP note has been reviewed, I agree with a documented findings and plan of care. Patient was seen and examined.
[2018-09-06 12:17] LABS: Glucose,Whole Blood 242 mg/dL (75-99)
[2018-09-06] MEDS: INSULIN DETEMIR (LEVEMIR) 100 UNIT/ML SYR SQ SCH (12:26)
--- NOTE | 2018-09-06 13:29 | P.DS ---
Providers Date of admission: 08/23/18 13:09 Expected date of discharge: 09/06/18 Attending physician: Amos Yañez Consults: 08/23/18 16:22 Consult Physician Routine Consulting Provider: [facility] Consult Reason/Comments: Post Interventional patient Do you want consulting provider notified?: Already Contacted Placement Type Exists?: Yes 08/23/18 21:00 Consult Physician Stat Consulting Provider: Rambo Baldwin Consult Reason/Comments: ICU/Vent management Do you want consulting provider notified?: Already Contacted 08/24/18 00:36 Consult Physician Stat Consulting Provider: Rambo Baldwin Consult Reason/Comments: ICU/vent management Do you want consulting provider notified?: Already Contacted 08/24/18 20:18 Consult Physician Routine Consulting Provider: Omar Braga Consult Reason/Comments: usama Do you want consulting provider notified?: Yes 08/27/18 17:23 Consult Physician Routine Consulting Provider: Demarco Guerra Consult Reason/Comments: New thrombocytopenia Do you want consulting provider notified?: Yes Primary care physician: Dean Evangelista [facility] 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 Patient's a prior history of coronary bypass. Patient presented to [facility] of with an acute non-Q-wave OR. He did undergo cardiac catheterization was found to have significant coronary artery disease. Patient was subsequently transferred here for coronary inter vention.patient was taken to the cardiac blood bank laboratory technician. Intervention was carried out. Stenting to the RCA emergently Following that the PDA branch of the RCA as well as stenting to the saphenous vein graft to the marginal was performed. Patient did not have a very smooth course and subsequently patient was transferred to the ICU subsequently. Status post on the ventilator. Patient has been delirious. Slowly improving. Diet has improved. The weak and tired. Does answer simple questions. Physical examination: VITAL SIGNS: 97.5, 75, 17, 99 x 56, 94% room air GENERAL: Laying in bed, awake tired appearing. EYES: [Pupils equal. Conjunctiva pale]l. HEENT: [External appearance of nose and ears normal, . NECK: [JVD unable to assess; masses not palpable]. HEART: [First and second heart sounds are normal; no edema]. LUNGS:[ Respiratory rate increase; decreased breath soundn]. ABDOMEN: [Soft, nontender, liver spleen not palpable, no masses palpable]. PSYCH: [Does answer some questions l. NEUROLOGICAL: [Cranial nerves grossly intact; no facial asymmetry, does move about Investigations, reviewed in the clinical context: Potassium 4, creatinine 0.61 hemoglobin 11.8 Assessment: -Acute non-Q-wave myocardial infarction -Coronary artery disease with severe significant disease to the left main and right coronary artery. 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 sleep apnea -Chronic bladder outflow obstruction -Severe metabolic acidosis multifactorial -Acute renal failure possibly ATN from cardiorenal syndrome from cardiogenic shock, corrected -Thrombocytopenia, new onset patient is on antiplatelet agents -Acute metabolic encephalopathy, slowly improving Disposition: ECF/[facility] Patient Condition at Discharge: Stable Plan - Discharge Summary New Discharge Prescriptions: New Spironolactone [Aldactone] 25 mg PO DAILY tab Artificial Tears-Hypromellose [Artificial Tear Drops] 1 drops BOTH EYES TID PRN bottle PRN Reason: Dry Eye(S) Aspirin 81 mg PO DAILY chew Sulfamethox-Tmp 800-160Mg [Bactrim DS 800-160 mg] 1 each PO BID@0800,1999 #14 tab Ipratropium-Albuterol Nebulize [Duoneb 0.5 mg-3 mg/3 ml Soln] 3 ml INHALATION RT-QID ampul.neb Furosemide [Lasix] 20 mg PO DAILY tab Metoprolol Tartrate [Lopressor] 25 mg PO BID tab amLODIPine [Norvasc] 5 mg PO DAILY tab Clopidogrel [Plavix] 75 mg PO DAILY tab QUEtiapine [SEROquel] 25 mg PO HS #3 tab Lisinopril [Zestril] 5 mg PO BID tab Continue INSULIN LISPRO (humaLOG) [humaLOG] See Protocol SQ ACHS Cholecalciferol [Vitamin D3 (25 Mcg = 1000 Iu)] 1,000 unit PO W/SUPPER Tamsulosin [Flomax] 0.4 mg PO HS Pravastatin Sodium [Pravachol] 40 mg PO DAILY Prevagen 1 each PO DAILY Multivitamins, Thera [Multivitamin (formulary)] 1 each PO DAILY traMADol HCL [Ultram] 50 mg PO Q6H PRN #12 tablet PRN Reason: Pain Changed Insulin Glargine [Lantus] 25 unit SQ QAM #0 Discontinued amLODIPine [Norvasc] 10 mg PO W/SUPPER Amiodarone [Cordarone] 200 mg PO W/SUPPER HYDROcodone/APAP 10-325MG [[place] 10-325] 1 tab PO DAILY PRN PRN Reason: Pain Meclizine [Antivert] 25 mg PO DAILY PRN PRN Reason: NAUSEA/VOMITING Gabapentin 600 mg PO TID Discharge Medication List INSULIN LISPRO (humaLOG) [humaLOG] See Protocol SQ ACHS 11/07/13 [History] Cholecalciferol [Vitamin D3 (25 Mcg = 1000 Iu)] 1,000 unit PO W/SUPPER 07/14/15 [History] Tamsulosin [Flomax] 0.4 mg PO HS 07/14/17 [History] Pravastatin Sodium [Pravachol] 40 mg PO DAILY 08/03/17 [History] Multivitamins, Thera [Multivitamin (formulary)] 1 each PO DAILY 07/04/18 [History] Prevagen 1 each PO DAILY 07/04/18 [History] Artificial Tears-Hypromellose [Artificial Tear Drops] 1 drops BOTH EYES TID PRN bottle 09/06/18 [Rx] Aspirin 81 mg PO DAILY chew 09/06/18 [Rx] Clopidogrel [Plavix] 75 mg PO DAILY tab 09/06/18 [Rx] Furosemide [Lasix] 20 mg PO DAILY tab 09/06/18 [Rx] Insulin Glargine [Lantus] 25 unit SQ QAM #0 09/06/18 [Rx] Ipratropium-Albuterol Nebulize [Duoneb 0.5 mg-3 mg/3 ml Soln] 3 ml INHALATION RT-QID ampul.neb 09/06/18 [Rx] Lisinopril [Zestril] 5 mg PO BID tab 09/06/18 [Rx] Metoprolol Tartrate [Lopressor] 25 mg PO BID tab 09/06/18 [Rx] QUEtiapine [SEROquel] 25 mg PO HS #3 tab 09/06/18 [Rx] Spironolactone [Aldactone] 25 mg PO DAILY tab 09/06/18 [Rx] Sulfamethox-Tmp 800-160Mg [Bactrim DS 800-160 mg] 1 each PO BID@0800,2000 #14 tab 09/06/18 [Rx] amLODIPine [Norvasc] 5 mg PO DAILY tab 09/06/18 [Rx] traMADol HCL [Ultram] 50 mg PO Q6H PRN #12 tablet 09/06/18 [Rx] Follow up Appointment(s)/Referral(s): cardiology, [Other] - 1 Week Rsoe Dean MD [STAFF PHYSICIAN] - 10 Days Lul Anthony DO [STAFF PHYSICIAN] - 09/07/18 Dean Evangelista MD [Primary Care Provider] - As Needed
[2018-09-06 16:47] LABS: Glucose,Whole Blood 247 mg/dL (75-99)
[2018-09-06 20:35] LABS: Glucose,Whole Blood 255 mg/dL (75-99)
[2018-09-06] MEDS: QUEtiapine 25 MG TAB PO SCH (22:06)
--- NOTE | 2018-09-06 22:23 | P.PN ---
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 Patient's a prior history of coronary bypass. Patient presented to [facility] of with an acute non-Q-wave PR. He did undergo cardiac catheterization was found to have significant coronary artery disease. Patient was subsequently transferredhere yesterday for coronary intervention.patient was taken to the cardiac director of cardiac cath lab. Intervention was carried out. Patient did not have a very smooth course and subsequently patient was transferred to the ICU subsequently. Status post on the ventilator Today-appetite is better. Laying in bed. Did sleep well overnight. No new issues.. Review of systems: Attempted but patient sparingly answered questions sparingly answered questions viewed that included: Current medications reviewed that included: DuoNeb, Norvasc, aspirin,, Zestril, , Bactrim DS, oral Lasix Physical examination: VITAL SIGNS: 97.5, 75, 17, 99 / 56, 94% room air GENERAL: Laying in bed, awake tired appearing. EYES: [Pupils equal. Conjunctiva pale]l. HEENT: [External appearance of nose and ears normal, . NECK: [JVD unable to assess; masses not palpable]. HEART: [First and second heart sounds are normal; no edema]. LUNGS:[ Respiratory rate increase; decreased breath soundn]. ABDOMEN: [Soft, nontender, liver spleen not palpable, no masses palpable]. PSYCH: [Answering some questions l. Investigations, reviewed in the clinical context: White count 11.1, hemoglobin 11.8, potassium 3.3, BNP 21, creatinine 0.61 Assessment: -Acute non-Q-wave myocardial infarction -Coronary artery disease with severe significant disease to the left main and right coronary artery. 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 sleep apnea -Chronic bladder outflow obstruction -Severe metabolic acidosis multifactorial -Acute renal failure possibly ATN from cardiorenal syndrome from cardiogenic shock, corrected -Thrombocytopenia, new onset patient is on antiplatelet agents -Acute metabolic encephalopathy, slowly improving Plan: Patient was to be discharged to ECF. ECF [facility] will not take the patient had patient had a sitter. Sitter is being discontinued. Patient has been cooperative, slept well last night. Did tolerate his meals. Tired.
[2018-09-07] MEDS: ACETAMINOPHEN TAB 325 MG TAB PO PRN ×2 (04:55→15:11)
[2018-09-07 06:13] LABS: Glucose,Whole Blood 207 mg/dL (75-99)
[2018-09-07 06:36] LABS: Glucose,Whole Blood 215 mg/dL (75-99)
[2018-09-07] MEDS: INSULIN ASPART (NovoLOG) 100 UNIT/ML VIAL SQ SCH ×2 (06:41→12:22)
[2018-09-07] MEDS: IPRATROPIUM-ALBUTEROL 3 ML NEB INHALATION SCH ×2 (06:57→13:59)
[2018-09-07] MEDS ORDERED: INSULIN DETEMIR (LEVEMIR) 100 UNIT/ML SYR SQ SCH (07:00)
[2018-09-07] MEDS ORDERED: PANTOPRAZOLE SODIUM 40 MG GRANULE PKT PO SCH (07:30)
[2018-09-07 08:05] VITALS: RESP 18
[2018-09-07] MEDS ORDERED: FUROSEMIDE 20 MG TAB PO SCH (09:00)
[2018-09-07] MEDS: ATORVASTATIN 40 MG TAB PO SCH (09:07)
[2018-09-07] MEDS: METOPROLOL TARTRATE 25 MG TAB PO SCH (09:07)
[2018-09-07] MEDS: MULTIVITAMINS, THERA 1 EACH TAB PO SCH (09:07)
[2018-09-07] MEDS: SULFAMETHOX-TMP 800-160MG 1 EACH TAB PO SCH (09:07)
[2018-09-07] MEDS: amLODIPine 5 MG TAB PO SCH (09:07)
[2018-09-07] MEDS: LISINOPRIL 5 MG TAB PO SCH (09:07)
[2018-09-07] MEDS: HEPARIN SODIUM,PORCINE 5,000 UNIT/ML 1 ML VIAL SQ SCH (09:07)
[2018-09-07] MEDS: CLOPIDOGREL 75 MG TAB PO SCH (09:07)
[2018-09-07] MEDS: ASPIRIN 81 MG PO SCH (09:07)
[2018-09-07] MEDS: SPIRONOLACTONE 25 MG TAB PO SCH (09:07)
--- NOTE | 2018-09-07 10:07 | P.PN ---
Subjective Progress Note Date: 09/07/18 This is an 78-year-old gentleman who presented to the hospital with an acute non-Q-wave myocardial infarction, underwent emergent stenting of the RCA with subsequent stenting of the PDA branch of the RCA as well as saphenous vein graft to the marginal complicated by cardiogenic shock. Patient was seen and examined on the telemetry unit today, lying comfortably in bed, no difficulty in breathing, or, his is at bedside. He does have a sitter at bedside. Blood pressure 120/60 with a heart rate in the 80s, 95% on room air. Sodium 144, potassium 4.0, BUN 16 and creatinine 0.6. We will discontinue the IV Lasix today and start the patient on Lasix 20 mg daily, continue the rest of the patient's medications. 09/07/2018 Patient seen and examined this morning, resting comfortably in bed. Blood pressure 105/60 with a heart rate in the 80s, 96% on room air. Anticipating transferred to [facility] today. Objective - Vital Signs Vital signs: Vital Signs Temp 97.6 F 09/07/18 08:00 Pulse 82 09/07/18 08:00 Resp 18 09/07/18 08:00 BP 105/61 09/07/18 08:00 Pulse Ox 96 09/07/18 08:00 Intake & Output 09/06/18 09/07/18 09/07/18 18:59 06:59 18:59 Intake Total 180 200 0 Output Total 650 350 Balance -470 200 -350 Weight 94 kg Intake: Oral 180 200 0 Output: Urine 650 350 Other: Voiding Method Urinal Urinal Diaper Diaper Incontinent Incontinent # Voids 1 1 # Bowel Movements 1 1 ABP, PAP, CO, CI - Last Documented Arterial Blood Pressure 152/68 - Exam Physical Exam: Revealed 78-year-old white male pleasant in no distress. On room air Head: Atraumatic, normocephalic. HEENT:[Neck is supple.] [No neck masses.] [No thyromegaly.] [No JVD.] Chest: [Clear throughout, no crackles, no rhonchi, no wheezes.] Cardiac Exam: [Normal S1 and S2, no S3 gallop, no murmur.] Abdomen: [Soft, nontender, no megaly, no rebound, no guarding, normal bowel sounds.] Extremities: [No clubbing, no edema, no cyanosis.] Neurological Exam: [No focal neurologic deficit.] Psychiatric: Normal mood affect and normal mental status examination. Skin: No rashes. Lymphatics: No lymphadenopathy. - Labs CBC & Chem 7: 09/05/18 05:15 09/06/18 07:52 Labs: Abnormal Lab Results - Last 24 Hours (Table) 09/06/18 09/06/18 09/06/18 Range/Units 12:03 16:44 20:33 POC Glucose (mg/dL) 242 H 247 H 255 H (75-99) mg/dL 09/07/18 09/07/18 Range/Units 06:11 06:34 POC Glucose (mg/dL) 207 H 215 H (75-99) mg/dL Microbiology - Last 24 Hours (Table) 08/30/18 15:40 Gram Stain - Final Sputum Sputum Culture - Final Methicillin resist S. aureus Assessment and Plan Plan: Impression: 1 acute non-ST elevation myocardial infarction status post stenting of the RCA and PDA branch of RCA and subsequent cardiogenic shock requiring intra-aortic balloon pump placement, and mechanical ventilation. 2 acute hypoxic respiratory failure secondary to cardiogenic shock 3 history of underlying coronary artery disease and previous CABG in 2008 4 multiple comorbidities including dementia, prostate cancer, renal colic, hyperlipidemia, hypertension Plan From cardiology's perspective, patient may be transferred to [facility] today. We will make him a follow-up appointment in the office post discharge. DNP note has been reviewed, I agree with a documented findings and plan of care. Patient was seen and examined.
[2018-09-07 11:20] VITALS: BP 101/63; PULSE 75; TEMP 98.1
[2018-09-07 12:04] LABS: Glucose,Whole Blood 197 mg/dL (75-99)
--- NOTE | 2018-09-07 13:08 | P.DS ---
Providers Date of admission: 08/23/18 13:09 Expected date of discharge: 09/07/18 Attending physician: Amos Yañez Consults: 08/23/18 16:22 Consult Physician Routine Consulting Provider: [facility] Consult Reason/Comments: Post Interventional patient Do you want consulting provider notified?: Already Contacted Placement Type Exists?: Yes 08/23/18 21:00 Consult Physician Stat Consulting Provider: Rambo Baldwin Consult Reason/Comments: ICU/Vent management Do you want consulting provider notified?: Already Contacted 08/24/18 00:36 Consult Physician Stat Consulting Provider: Rambo Baldwin Consult Reason/Comments: ICU/vent management Do you want consulting provider notified?: Already Contacted 08/24/18 20:18 Consult Physician Routine Consulting Provider: Omar Braga Consult Reason/Comments: usama Do you want consulting provider notified?: Yes 08/27/18 17:23 Consult Physician Routine Consulting Provider: Demarco Guerra Consult Reason/Comments: New thrombocytopenia Do you want consulting provider notified?: Yes Primary care physician: Dean Evangelista [facility] 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 Patient's a prior history of coronary bypass. Patient presented to [facility] of with an acute non-Q-wave SD. He did undergo cardiac catheterization was found to have significant coronary artery disease. Patient was subsequently transferred here for coronary inter vention.patient was taken to the cardiac microbiological laboratory technician. Intervention was carried out. Stenting to the RCA emergently Following that the PDA branch of the RCA as well as stenting to the saphenous vein graft to the marginal was performed. Patient did not have a very smooth course and subsequently patient was transferred to the ICU subsequently. Status post on the ventilator. Patient has been delirious. Slowly improving. Diet has improved. Does answer simple questions. Systolic blood pressures running low. We'll stop patient's amlodipine Physical examination: VITAL SIGNS: 98.1, 75, 18, 101/63, 95% room air GENERAL: Laying in bed, awake tired appearing. EYES: [Pupils equal. Conjunctiva pale]l. HEENT: [External appearance of nose and ears normal, . NECK: [JVD unable to assess; masses not palpable]. HEART: [First and second heart sounds are normal; no edema]. LUNGS:[ Respiratory rate increase; decreased breath soundn]. ABDOMEN: [Soft, nontender, liver spleen not palpable, no masses palpable]. PSYCH: [Does answer some questions l. NEUROLOGICAL: [Cranial nerves grossly intact; no facial asymmetry, does move about Investigations, reviewed in the clinical context: Potassium 4, creatinine 0.61 hemoglobin 11.8 [id number], 215, 197 Assessment: -Acute non-Q-wave myocardial infarction -Coronary artery disease with severe significant disease to the left main and right coronary artery. 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 sleep apnea -Chronic bladder outflow obstruction -Severe metabolic acidosis multifactorial -Acute renal failure possibly ATN from cardiorenal syndrome from cardiogenic shock, corrected -Thrombocytopenia, new onset patient is on antiplatelet agents -Acute metabolic encephalopathy, slowly improving [facility] Patient Condition at Discharge: Stable Plan - Discharge Summary New Discharge Prescriptions: New Spironolactone [Aldactone] 25 mg PO DAILY tab Artificial Tears-Hypromellose [Artificial Tear Drops] 1 drops BOTH EYES TID PRN bottle PRN Reason: Dry Eye(S) Aspirin 81 mg PO DAILY chew Sulfamethox-Tmp 800-160Mg [Bactrim DS 800-160 mg] 1 each PO BID@0800,1999 #14 tab Ipratropium-Albuterol Nebulize [Duoneb 0.5 mg-3 mg/3 ml Soln] 3 ml INHALATION RT-QID ampul.neb Furosemide [Lasix] 20 mg PO DAILY tab Metoprolol Tartrate [Lopressor] 25 mg PO BID tab Clopidogrel [Plavix] 75 mg PO DAILY tab QUEtiapine [SEROquel] 25 mg PO HS #3 tab Lisinopril [Zestril] 5 mg PO BID tab Continue INSULIN LISPRO (humaLOG) [humaLOG] See Protocol SQ ACHS Cholecalciferol [Vitamin D3 (25 Mcg = 1000 Iu)] 1,000 unit PO W/SUPPER Tamsulosin [Flomax] 0.4 mg PO HS Pravastatin Sodium [Pravachol] 40 mg PO DAILY Prevagen 1 each PO DAILY Multivitamins, Thera [Multivitamin (formulary)] 1 each PO DAILY traMADol HCL [Ultram] 50 mg PO Q6H PRN #12 tablet PRN Reason: Pain Changed Insulin Glargine [Lantus] 25 unit SQ QAM #0 Discontinued amLODIPine [Norvasc] 10 mg PO W/SUPPER Amiodarone [Cordarone] 200 mg PO W/SUPPER HYDROcodone/APAP 10-325MG [Tualatin 10-325] 1 tab PO DAILY PRN PRN Reason: Pain Meclizine [Antivert] 25 mg PO DAILY PRN PRN Reason: NAUSEA/VOMITING Gabapentin 600 mg PO TID Discharge Medication List INSULIN LISPRO (humaLOG) [humaLOG] See Protocol SQ ACHS 11/07/13 [History] Cholecalciferol [Vitamin D3 (25 Mcg = 1000 Iu)] 1,000 unit PO W/SUPPER 07/14/15 [History] Tamsulosin [Flomax] 0.4 mg PO HS 07/14/17 [History] Pravastatin Sodium [Pravachol] 40 mg PO DAILY 08/03/17 [History] Multivitamins, Thera [Multivitamin (formulary)] 1 each PO DAILY 07/04/18 [History] Prevagen 1 each PO DAILY 07/04/18 [History] Artificial Tears-Hypromellose [Artificial Tear Drops] 1 drops BOTH EYES TID PRN bottle 09/06/18 [Rx] Aspirin 81 mg PO DAILY chew 09/06/18 [Rx] Clopidogrel [Plavix] 75 mg PO DAILY tab 09/06/18 [Rx] Furosemide [Lasix] 20 mg PO DAILY tab 09/06/18 [Rx] Insulin Glargine [Lantus] 25 unit SQ QAM #0 09/06/18 [Rx] Ipratropium-Albuterol Nebulize [Duoneb 0.5 mg-3 mg/3 ml Soln] 3 ml INHALATION RT-QID ampul.neb 09/06/18 [Rx] Lisinopril [Zestril] 5 mg PO BID tab 09/06/18 [Rx] Metoprolol Tartrate [Lopressor] 25 mg PO BID tab 09/06/18 [Rx] QUEtiapine [SEROquel] 25 mg PO HS #3 tab 09/06/18 [Rx] Spironolactone [Aldactone] 25 mg PO DAILY tab 09/06/18 [Rx] Sulfamethox-Tmp 800-160Mg [Bactrim DS 800-160 mg] 1 each PO BID@0800,2000 #14 tab 09/06/18 [Rx] traMADol HCL [Ultram] 50 mg PO Q6H PRN #12 tablet 09/06/18 [Rx] Follow up Appointment(s)/Referral(s): cardiology,dr [Other] - 1 Week Rose Dean MD [STAFF PHYSICIAN] - 10 Days Lul Anthony DO [STAFF PHYSICIAN] - 09/07/18 Dean Evangelista MD [Primary Care Provider] - As Needed
[2018-09-07 14:02] LABS: Glucose,Whole Blood 232 mg/dL (75-99)
[2018-09-07 15:21] VITALS: BMI 32.4
== END 2018-09-07 15:38 | DRG 270 ==
LOC: 3SCARD 13:09 → 2SICU 16:17 → 3SCARD 09-05 16:29
PROVIDERS: ADMIT Hospitalist; ATTEND Hospitalist
PROC: B2111ZZ Fluoroscopy of Multiple Coronary Arteries using Low Osmolar Contrast (ICD-10-PCS; 2018-08-23)
PROC: 5A1955Z Respiratory Ventilation, Greater than 96 Consecutive Hours (ICD-10-PCS; 2018-08-23)
PROC: 0BH17EZ Insertion of Endotracheal Airway into Trachea, Via Natural or Artificial Opening (ICD-10-PCS; 2018-08-23)
PROC: 5A02210 Assistance with Cardiac Output using Balloon Pump, Continuous (ICD-10-PCS; principal; 2018-08-23 14:10)
PROC: 027135Z Dilation of Coronary Artery, Two Arteries with Two Drug-eluting Intraluminal Devices, Percutaneous Approach (ICD-10-PCS; 2018-08-23 14:10)
PROC: 027034Z Dilation of Coronary Artery, One Artery with Drug-eluting Intraluminal Device, Percutaneous Approach (ICD-10-PCS; 2018-08-23 14:10)
PROC: 5A1223Z Performance of Cardiac Pacing, Continuous (ICD-10-PCS; 2018-08-23 19:30)
PROC: 05HN33Z Insertion of Infusion Device into Left Internal Jugular Vein, Percutaneous Approach (ICD-10-PCS; 2018-08-27)
PROC: 03HY32Z Insertion of Monitoring Device into Upper Artery, Percutaneous Approach (ICD-10-PCS; 2018-08-27)
PROC: 4A133BC Monitoring of Arterial Pressure, Coronary, Percutaneous Approach (ICD-10-PCS; 2018-08-27)
DX: I21.4 Non-ST elevation (NSTEMI) myocardial infarction (principal); G93.41 Metabolic encephalopathy; I50.21 Acute systolic (congestive) heart failure; J18.9 Pneumonia, unspecified organism; J96.01 Acute respiratory failure with hypoxia; N17.0 Acute kidney failure with tubular necrosis; R57.0 Cardiogenic shock; I25.810 Atherosclerosis of coronary artery bypass graft(s) without angina pectoris; I44.2 Atrioventricular block, complete; J98.11 Atelectasis; E87.2 Acidosis; E87.3 Alkalosis; I25.5 Ischemic cardiomyopathy; D69.6 Thrombocytopenia, unspecified; I11.0 Hypertensive heart disease with heart failure; D64.9 Anemia, unspecified; E11.9 Type 2 diabetes mellitus without complications; F03.90 Unspecified dementia, unspecified severity, without behavioral disturbance, psychotic disturbance, mood disturbance, and anxiety; I48.91 Unspecified atrial fibrillation; I45.10 Unspecified right bundle-branch block; E78.5 Hyperlipidemia, unspecified; E87.6 Hypokalemia; G47.33 Obstructive sleep apnea (adult) (pediatric); G89.29 Other chronic pain; M19.91 Primary osteoarthritis, unspecified site; N32.0 Bladder-neck obstruction; T50.2X5A Adverse effect of carbonic-anhydrase inhibitors, benzothiadiazides and other diuretics, initial encounter; M54.9 Dorsalgia, unspecified; R01.1 Cardiac murmur, unspecified; R45.1 Restlessness and agitation; I49.3 Ventricular premature depolarization; G56.00 Carpal tunnel syndrome, unspecified upper limb; R32 Unspecified urinary incontinence; E66.9 Obesity, unspecified; Z68.32 Body mass index [BMI] 32.0-32.9, adult; Z79.4 Long term (current) use of insulin; Z79.82 Long term (current) use of aspirin; Z79.899 Other long term (current) drug therapy; Z96.651 Presence of right artificial knee joint; Z87.01 Personal history of pneumonia (recurrent); Z85.46 Personal history of malignant neoplasm of prostate; Z90.49 Acquired absence of other specified parts of digestive tract; Z88.0 Allergy status to penicillin; Z88.8 Allergy status to other drugs, medicaments and biological substances; Z92.3 Personal history of irradiation; Z91.041 Radiographic dye allergy status; Z80.42 Family history of malignant neoplasm of prostate; Z80.43 Family history of malignant neoplasm of testis; Z82.49 Family history of ischemic heart disease and other diseases of the circulatory system
CPT/HCPCS: 33210; 33215; 33967; 71045; 71250; 74018; 76604; 80048; 80053; 80202; 81003; 82805; 83735; 84100; 84132; 84145; 84484; 85025; 85027; 85347; 85610; 85730; 87040; 87070; 87077; 87086; 87186; 87205; 87324; 93306; 93455; 94002; 94003; 94640; 94667; C1874

== ENCOUNTER 2018-09-11 21:48 | Observation (INO) | payer MEDICARE, BC ==
[2018-09-11] MEDS ORDERED: SODIUM CHLORIDE 0.9% 1,000 ML IV STA (22:04)
--- NOTE | 2018-09-11 22:21 | ED ---
General Adult HPI - General Chief complaint: Recheck/Abnormal Lab/Rx Stated complaint: weakness Time Seen by Provider: 09/11/18 22:00 Source: EMS Mode of arrival: EMS - History of Present Illness Initial comments: Tucker is an 78-year-old gentleman with extensive medical history most significant for recent NSTEMI with urgent cardiac catheterization at which time the patient ended up intubated in the ICU with a balloon pump for a number of days. Patient has been recovering well area patient has been staying at a alf metal lodged. He is transferred to the emergency department today because throughout the day he has had persistent hypotension with blood pressures in the 90s systolic at the alf. Patient reports that he's been feeling relatively well aside from the fact that he suffers from chronic pain and currently is not being given his by mouth Comer at the alf. He denies any chest pain or shortness of breath for the past couple of days. - Related Data Home Medications Medication Instructions Recorded Confirmed INSULIN LISPRO (humaLOG) [humaLOG] See Protocol SQ ACHS 11/07/13 09/11/18 Cholecalciferol [Vitamin D3 (25 1,000 unit PO HS 07/14/15 09/11/18 Mcg = 1000 Iu)] Tamsulosin [Flomax] 0.4 mg PO HS 07/14/17 09/11/18 Pravastatin Sodium [Pravachol] 40 mg PO DAILY 08/03/17 09/11/18 Multivitamins, Thera [Multivitamin 1 tab PO DAILY 07/04/18 09/11/18 (formulary)] Prevagen 1 tab PO DAILY 07/04/18 09/11/18 Artificial Tears-Hypromellose 1 drops BOTH EYES TID 09/11/18 09/11/18 [Artificial Tear Drops] Sulfamethox-Tmp 800-160Mg [Bactrim 1 tab PO BID 09/11/18 09/11/18 DS 800-160 mg] Previous Rx's Medication Instructions Recorded Aspirin 81 mg PO DAILY chew 09/06/18 Clopidogrel [Plavix] 75 mg PO DAILY tab 09/06/18 Furosemide [Lasix] 20 mg PO DAILY tab 09/06/18 Insulin Glargine [Lantus] 25 unit SQ QAM #0 09/06/18 Ipratropium-Albuterol Nebulize 3 ml INHALATION RT-QID ampul.neb 09/06/18 [Duoneb 0.5 mg-3 mg/3 ml Soln] Lisinopril [Zestril] 5 mg PO BID tab 09/06/18 Metoprolol Tartrate [Lopressor] 25 mg PO BID tab 09/06/18 QUEtiapine [SEROquel] 25 mg PO HS #3 tab 09/06/18 Spironolactone [Aldactone] 25 mg PO DAILY tab 09/06/18 traMADol HCL [Ultram] 50 mg PO Q6H PRN #12 tablet 09/06/18 Allergies Allergy/AdvReac Type Severity Reaction Status Date / Time Iodinated Contrast- Oral and Allergy Rash/Hives Verified 09/11/18 22:02 IV Dye iodine Allergy Rash/Hives Verified 09/11/18 22:02 Penicillins Allergy Swelling Verified 09/11/18 22:02 duloxetine [From Cymbalta] AdvReac PRICKLY Verified 09/11/18 22:02 FEELING IN HEAD povidone-iodine AdvReac Itchy,red Verified 09/11/18 22:02 [From Betadine] skin soap [From Betadine] AdvReac Itchy,red Verified 09/11/18 22:02 skin Surgical Scrub Allergy Unknown Itching, Uncoded 07/04/18 12:24 Red skin Review of Systems ROS Statement: Those systems with pertinent positive or pertinent negative responses have been documented in the HPI. ROS Other: All systems not noted in ROS Statement are negative. Past Medical History Past Medical History: Coronary Artery Disease (CAD), Cancer, Diabetes Mellitus, Hyperlipidemia, Hypertension, Memory Impairment, Osteoarthritis (OA), Pneumonia, Prostate Disorder, Sleep Apnea/CPAP/BIPAP Additional Past Medical History / Comment(s): Prostate cancer-2010- tx with radiation. HAS ABD ADHESIONS, History of Any Multi-Drug Resistant Organisms: MRSA Date of last positivie culture/infection: 08/30/18 MDRO Source:: Sputum Past Surgical History: Appendectomy, Back Surgery, Cholecystectomy, Coronary Bypass/CABG, Heart Catheterization, Hernia Repair, Joint Replacement, Orthopedic Surgery Additional Past Surgical History / Comment(s): ORIF Rt Ankle. ORIF Rt Fibula Surgery. RT Knee Replacement. 2008 Triple CABG. Abdominal adhesions. Fatty tumor from neck. CTR jono. Abdominal surgery with mesh in 2001. Back nerve surgery. Rotator cuff-left shoulder. ING hernia repair w/ mesh. 3 fatty tumors removed 08/15/15, COLONOSCOPY Past Anesthesia/Blood Transfusion Reactions: No Reported Reaction Smoking Status: Never smoker - Past Family History Father History Unknown: Yes Family Medical History: Cancer Additional Family Medical History / Comment(s): PROSTATE CANCER Son(s) Family Medical History: Cancer Additional Family Medical History / Comment(s): TESTICULAR CANCER Mother Family Medical History: Coronary Artery Disease (CAD), Hypertension Sister(s) Family Medical History: Cancer General Exam - General Exam Comments Initial Comments: Physical Exam GENERAL: Patient is well-developed and well-nourished. HENT: Normocephalic, Atraumatic. EYES: PERRL, EOMI PULMONARY: Unlabored respirations. No audible rales rhonchi or wheezing was noted. CARDIOVASCULAR: RRR ABDOMEN: Soft and nontender with normal bowel sounds. Bruising on the anterior abdomen consistent with previous heparin injections SKIN: Skin is clear with no lesions or rashes and otherwise unremarkable. Well-healing right groin from previous vascular access : Deferred NEUROLOGIC: Patient is alert and oriented x3. Moving all extremities spontaneously MUSCULOSKELETAL: Normal extremities with adequate strength and full range of motion. No lower extremity swelling or edema. No calf tenderness. PSYCHIATRIC: Normal psychiatric evaluation Course Vital Signs 09/11/18 09/11/18 09/11/18 21:50 22:00 22:56 Temperature 98.4 F 98 F Pulse Rate 70 73 Pulse Rate [ 70 Fishing Rod Marker ] Respiratory 16 18 Rate Blood Pressure 128/73 126/75 O2 Sat by Pulse 96 98 Oximetry EKG Findings - EKG Comments: EKG Findings:: EKG was obtained due to hypotension and a cardiac patient, EKG was obtained at 9:58 PM, rate is 70 rhythm is sinus with frequent PVCs a bifascicular block is noted there is no obvious ST elevations or depressions. When this EKG was compared to previous which was obtained on August 23 there is n ew right bundle-branch block and frequent PVCs noted on this EKG. A post- stenting EKG could not be obtained while in the emergency department for other comparison. Medical Decision Making - Medical Decision Making The patient was seen and evaluated, history is obtained from the patient Laurence review of medical record and EMS Patient is not hypotensive for EMS and not hypotensive upon arrival in the emergency department however given his extensive history cardiac workup will be initiated EKG was reviewed and is significantly different from previous however nonischemic at this time labs resulted with elevated troponin however I suspect this is secondary to decreasing from the incredibly elevated troponin he had 3 weeks ago Given the patient's recent cardiac history and persistent hypotension I would recommend he be admitted to the hospital for close monitoring and possibly a repeat echo. Patient and family are agreeable with this. Patient's home meds were ordered in addition I did order the patient Comer which she takes at home but is not being prescribed at the alf. Patient was previously admitted to Dr. blum and will be admitted to him again today. Etiology will be consult it for further evaluation. - Lab Data Result diagrams: 09/11/18 22:25 09/11/18 22:25 Lab Results 09/11/18 09/11/18 09/11/18 Range/Units 22:25 22:25 22:25 WBC 6.9 (3.8-10.6) k/uL RBC 4.05 L (4.30-5.90) m/uL Hgb 12.4 L (13.0-17.5) gm/dL Hct 37.7 L (39.0-53.0) % MCV 93.2 (80.0-100.0) fL MCH 30.5 (25.0-35.0) pg MCHC 32.7 (31.0-37.0) g/dL RDW 15.6 H (11.5-15.5) % Plt Count 243 (150-450) k/uL Neutrophils % (Manual) 62 % Lymphocytes % (Manual) 31 % Monocytes % (Manual) 5 % Eosinophils % (Manual) 2 % Neutrophils # (Manual) 4.28 (1.3-7.7) k/uL Lymphocytes # (Manual) 2.14 (1.0-4.8) k/uL Monocytes # (Manual) 0.35 (0-1.0) k/uL Eosinophils # (Manual) 0.14 (0-0.7) k/uL Nucleated RBCs 0 (0-0) /100 WBC Manual Slide Review Performed Large Platelets Present Polychromasia Present Anisocytosis (manual) Present PT (9.0-12.0) sec INR (<1.2) APTT (22.0-30.0) sec Sodium 142 (137-145) mmol/L Potassium 4.6 (3.5-5.1) mmol/L Chloride 108 H (98-107) mmol/L Carbon Dioxide 23 (22-30) mmol/L Anion Gap 11 mmol/L BUN 31 H (9-20) mg/dL Creatinine 0.95 (0.66-1.25) mg/dL Est GFR (CKD-EPI)AfAm 88 (>60 ml/min/1.73 sqM) Est GFR (CKD-EPI)NonAf 76 (>60 ml/min/1.73 sqM) Glucose 117 H (74-99) mg/dL Calcium 9.7 (8.4-10.2) mg/dL Magnesium 1.6 (1.6-2.3) mg/dL Total Bilirubin 0.8 (0.2-1.3) mg/dL AST 52 (17-59) U/L ALT 57 (21-72) U/L Alkaline Phosphatase 100 (38-126) U/L Troponin I (0.000-0.034) ng/mL NT-Pro-B Natriuret Pep 1310 pg/mL Total Protein 6.7 (6.3-8.2) g/dL Albumin 3.7 (3.5-5.0) g/dL 09/11/18 09/11/18 Range/Units 22:25 22:25 WBC (3.8-10.6) k/uL RBC (4.30-5.90) m/uL Hgb (13.0-17.5) gm/dL Hct (39.0-53.0) % MCV (80.0-100.0) fL MCH (25.0-35.0) pg MCHC (31.0-37.0) g/dL RDW (11.5-15.5) % Plt Count (150-450) k/uL Neutrophils % (Manual) % Lymphocytes % (Manual) % Monocytes % (Manual) % Eosinophils % (Manual) % Neutrophils # (Manual) (1.3-7.7) k/uL Lymphocytes # (Manual) (1.0-4.8) k/uL Monocytes # (Manual) (0-1.0) k/uL Eosinophils # (Manual) (0-0.7) k/uL Nucleated RBCs (0-0) /100 WBC Manual Slide Review Large Platelets Polychromasia Anisocytosis (manual) PT 10.6 (9.0-12.0) sec INR 1.0 (<1.2) APTT 21.2 L (22.0-30.0) sec Sodium (137-145) mmol/L Potassium (3.5-5.1) mmol/L Chloride (98-107) mmol/L Carbon Dioxide (22-30) mmol/L Anion Gap mmol/L BUN (9-20) mg/dL Creatinine (0.66-1.25) mg/dL Est GFR (CKD-EPI)AfAm (>60 ml/min/1.73 sqM) Est GFR (CKD-EPI)NonAf (>60 ml/min/1.73 sqM) Glucose (74-99) mg/dL Calcium (8.4-10.2) mg/dL Magnesium (1.6-2.3) mg/dL Total Bilirubin (0.2-1.3) mg/dL AST (17-59) U/L ALT (21-72) U/L Alkaline Phosphatase (38-126) U/L Troponin I 0.068 H* (0.000-0.034) ng/mL NT-Pro-B Natriuret Pep pg/mL Total Protein (6.3-8.2) g/dL Albumin (3.5-5.0) g/dL Disposition Clinical Impression: Hypotension after procedure, Elevated troponin Disposition: ADMITTED IP TO THIS HOSP Condition: Stable Is patient prescribed a controlled substance at d/c from ED?: No Referrals: Lul Anthony DO [Primary Care Provider] - 1-2 days
[2018-09-11 22:53] LABS: Albumin 3.7 g/dL (3.5-5.0); Calcium 9.7 mg/dL (8.4-10.2); Magnesium 1.6 mg/dL (1.6-2.3); Potassium 4.6 mmol/L (3.5-5.1); Total Bilirubin 0.8 mg/dL (0.2-1.3); Total Protein 6.7 g/dL (6.3-8.2)
[2018-09-11 22:59] LABS: Prothrombin Time 10.6 sec (9.0-12.0)
[2018-09-11 23:00] LABS: HCT 37.7 % (39.0-53.0); HGB 12.4 gm/dL (13.0-17.5); MCH 30.5 pg (25.0-35.0); MCHC 32.7 g/dL (31.0-37.0); MCV 93.2 fL (80.0-100.0); Mean Platelet Volume 9.8; Partial Thromboplastin Time 21.2 sec (22.0-30.0); Platelet Count 243 k/uL (150-450); RBC 4.05 m/uL (4.30-5.90); RDW 15.6 % (11.5-15.5); WBC 6.9 k/uL (3.8-10.6)
[2018-09-11] MEDS ORDERED: KETOROLAC 30 MG/ML 1 ML VIAL IVP STA (23:13)
[2018-09-11 23:31] LABS: Anisocytosis (M) Present; Eosinophils # (M) 0.14 k/uL (0-0.7); Large Platelets Present; Lymphocytes # (M) 2.14 k/uL (1.0-4.8); Monocytes # (M) 0.35 k/uL (0-1.0); Neutrophils # (M) 4.28 k/uL (1.3-7.7); Neutrophils % (M) 62 %; Nucleated Red Blood Cells 0 /100 WBC (0-0); Total Cells Counted 100
[2018-09-11 23:32] LABS: Polychromasia Present
--- NOTE | 2018-09-11 23:44 | XR ---
EXAM: XR Chest, 2 Views CLINICAL HISTORY: Chest pain TECHNIQUE: Frontal and lateral views of the chest. COMPARISON: Chest x-ray dated 09/04/2017 FINDINGS: Lungs: Unremarkable. No consolidation. Pleural space: Unremarkable. No pneumothorax. Heart: Unremarkable. No cardiomegaly. Mediastinum: Unremarkable. Bones/joints: Evidence of prior median sternotomy. Degenerative changes. IMPRESSION: No acute findings.
[2018-09-12] MEDS ORDERED: NITROGLYCERIN SL TABS 0.4 MG TAB SUBLINGUAL PRN (00:06)
[2018-09-12] MEDS: HYDROcodone/APAP 5-325MG 1 EACH TAB PO PRN (01:38)
[2018-09-12] MEDS ORDERED: Magnesium Replacement Protocol 1 EACH MISC MISCELLANE PRN (02:01)
[2018-09-12 02:17] LABS: Glucose,Whole Blood 127 mg/dL (75-99)
[2018-09-12] MEDS: MAGNESIUM SULFATE-D5W PMX 1 GM in DEXTROSE/WATER 1 100ML.BAG IVPB SCH ×4 (02:21→17:38)
[2018-09-12 05:39] LABS: HGB 11.1 gm/dL (13.0-17.5); Hypochromasia Slight; MCH 30.7 pg (25.0-35.0); MCHC 32.5 g/dL (31.0-37.0); MCV 94.5 fL (80.0-100.0); Mean Platelet Volume 9.9; Platelet Count 230 k/uL (150-450); RDW 15.5 % (11.5-15.5); WBC 5.9 k/uL (3.8-10.6)
[2018-09-12 05:45] LABS: African American GFR (CKD) >90 (>60 ml/min/1.73 sqM); Anion Gap 10 mmol/L; Blood Urea Nitrogen 28 mg/dL (9-20); Calcium 8.9 mg/dL (8.4-10.2); Carbon Dioxide 20 mmol/L (22-30); Chloride 109 mmol/L (98-107); Glucose 157 mg/dL (74-99); Potassium 4.5 mmol/L (3.5-5.1); Sodium 139 mmol/L (137-145)
[2018-09-12 06:03] LABS: Glucose,Whole Blood 154 mg/dL (75-99)
[2018-09-12 06:34] LABS: Band Neutrophils % 1 %; Eosinophils # (M) 0.12 k/uL (0-0.7); Lymphocytes # (M) 1.59 k/uL (1.0-4.8); Monocytes # (M) 0.41 k/uL (0-1.0); Neutrophils % (M) 63 %; Nucleated Red Blood Cells 0 /100 WBC (0-0); Total Cells Counted 100
[2018-09-12 06:35] LABS: Anisocytosis (M) Present; Polychromasia Present
[2018-09-12 06:36] LABS: Large Platelets Present
[2018-09-12 06:37] LABS: Poikilocytosis (M) Present
[2018-09-12] MEDS: INSULIN ASPART (NovoLOG) 100 UNIT/ML VIAL SQ SCH ×4 (06:44→21:33)
[2018-09-12] MEDS: traMADol 50 MG TAB PO PRN (07:46)
[2018-09-12] MEDS: IPRATROPIUM-ALBUTEROL 3 ML NEB INHALATION SCH ×4 (08:26→19:06)
--- NOTE | 2018-09-12 09:08 | P.CRDCN ---
History of Present Illness Consult date: 09/12/18 Requesting physician: Amos Yañez Consult reason: hypotension Chief complaint: Hypotension History of present illness: This is an 78-year-old gentleman who has a known history of coronary artery disease with prior bypass surgery in 2008 at which time he underwent GAVIRIA to the LAD, saphenous vein graft to the diagonal, saphenous vein graft to the OM, diabetes, hypertension, hyperlipidemia, dementia, prostate cancer, chronic pain, presented to the hospital here on August 22 after being transferred from [facility] where he presented with chest discomfort. Patient was taken to the cardiac catheterization lab where he underwent successful stenting of the distal RCA and successful stenting of the PDA branch of the RCA, temporary pacemaker was placed at that time as well as balloon pump, patient was just released to [facility] on the of this month. At the [facility], prior to admission here was noted that the patient's blood pressure was persistently around 90 systolic, patient was asymptomatic with this. Because of the low blood pressures he was readmitted to the hospital. Blood pressure on arrival here 128/70 with a heart rate in the 70s, 96% on room air. Blood pressure this morning 114/60 with a heart rate in the 80s, 98% on 2 L of oxygen. White blood cell count is normal, hemoglobin 11.1, platelet count 230, sodium 139, potassium 4.5, BUN 28 and creatinine 0.7. Troponin 0.068, 0.068. BNP level 1310. Chest x-ray does not reveal any acute findings. EKG shows a normal sinus rhythm with right bundle branch block pa ttern and left anterior fascicular block. Occasional PVCs. At the time of my examination this morning, patient denies any dizziness or lightheadedness, no chest discomfort, no palpitations. He is complaining of some mild abdominal discomfort. The patient did have an echocardiogram with Doppler study performed on August 23 which revealed an ejection fraction of 45-50%, basal inferior and inferior septal wall hypokinesia noted at that time. His medications at time of discharge included Plavix, Flomax, Aldactone 25 mg daily, Seroquel, Pravachol 40 daily, Lopressor 25 twice a day, Zestril 5 twice a day, Lasix 20 mg daily, aspirin 81 mg daily, and his diabetic meds. Patient here has been placed on a full aspirin as well as baby aspirin, we will discontinue the full aspirin, continue Plavix, Lasix 20 mg daily, lisinopril 5 mg twice a day, metoprolol 25 mg one tablet by mouth twice a day, Pravachol 40 mg daily, Aldactone 25 mg daily, we will continue to monitor blood pressures, however they seemed to remain stable at this current regime of medications. Past Medical History Past Medical History: Coronary Artery Disease (CAD), Cancer, Diabetes Mellitus, Hyperlipidemia, Hypertension, Memory Impairment, Osteoarthritis (OA), Pneumonia, Prostate Disorder, Sleep Apnea/CPAP/BIPAP Additional Past Medical History / Comment(s): Prostate cancer-2010- tx with radiation. HAS ABD ADHESIONS,. abdominal hernia History of Any Multi-Drug Resistant Organisms: MRSA Date of last positivie culture/infection: 08/30/18 MDRO Source:: Sputum Past Surgical History: Appendectomy, Back Surgery, Cholecystectomy, Coronary Bypass/CABG, Heart Catheterization, Hernia Repair, Joint Replacement, Orthopedic Surgery Additional Past Surgical History / Comment(s): ORIF Rt Ankle. ORIF Rt Fibula Surgery. RT Knee Replacement. 2008 Triple CABG. Abdominal adhesions. Fatty tumor from neck. CTR jono. Abdominal surgery with mesh in 2001. Back nerve surgery. Rotator cuff-left shoulder. ING hernia repair w/ mesh. 3 fatty tumors removed 08/15/15, COLONOSCOPY Past Anesthesia/Blood Transfusion Reactions: No Reported Reaction Smoking Status: Never smoker - Past Family History Father History Unknown: Yes Family Medical History: Cancer Additional Family Medical History / Comment(s): PROSTATE CANCER Son(s) Family Medical History: Cancer Additional Family Medical History / Comment(s): TESTICULAR CANCER Mother Family Medical History: Coronary Artery Disease (CAD), Hypertension Sister(s) Family Medical History: Cancer Medications and Allergies Home Medications Medication Instructions Recorded Confirmed Type INSULIN LISPRO (humaLOG) [humaLOG] See Protocol SQ ACHS 11/07/13 09/11/18 History Cholecalciferol [Vitamin D3 (25 1,000 unit PO HS 07/14/15 09/11/18 History Mcg = 1000 Iu)] Tamsulosin [Flomax] 0.4 mg PO HS 07/14/17 09/11/18 History Pravastatin Sodium [Pravachol] 40 mg PO DAILY 08/03/17 09/11/18 History Multivitamins, Thera [Multivitamin 1 tab PO DAILY 07/04/18 09/11/18 History (formulary)] Prevagen 1 tab PO DAILY 07/04/18 09/11/18 History Aspirin 81 mg PO DAILY chew 09/06/18 09/11/18 Rx Clopidogrel [Plavix] 75 mg PO DAILY tab 09/06/18 09/11/18 Rx Furosemide [Lasix] 20 mg PO DAILY tab 09/06/18 09/11/18 Rx Insulin Glargine [Lantus] 25 unit SQ QAM #0 09/06/18 09/11/18 Rx Ipratropium-Albuterol Nebulize 3 ml INHALATION RT-QID ampul.neb 09/06/18 Rx [Duoneb 0.5 mg-3 mg/3 ml Soln] Lisinopril [Zestril] 5 mg PO BID tab 09/06/18 09/11/18 Rx Metoprolol Tartrate [Lopressor] 25 mg PO BID tab 09/06/18 09/11/18 Rx QUEtiapine [SEROquel] 25 mg PO HS #3 tab 09/06/18 09/11/18 Rx Spironolactone [Aldactone] 25 mg PO DAILY tab 09/06/18 09/11/18 Rx traMADol HCL [Ultram] 50 mg PO Q6H PRN #12 tablet 09/06/18 09/11/18 Rx Artificial Tears-Hypromellose 1 drops BOTH EYES TID 09/11/18 09/11/18 History [Artificial Tear Drops] Sulfamethox-Tmp 800-160Mg [Bactrim 1 tab PO BID 09/11/18 09/11/18 History DS 800-160 mg] Allergies Allergy/AdvReac Type Severity Reaction Status Date / Time Iodinated Contrast- Oral and Allergy Rash/Hives Verified 09/11/18 22:02 IV Dye iodine Allergy Rash/Hives Verified 09/11/18 22:02 Penicillins Allergy Swelling Verified 09/11/18 22:02 duloxetine [From Cymbalta] AdvReac PRICKLY Verified 09/11/18 22:02 FEELING IN HEAD povidone-iodine AdvReac Itchy,red Verified 09/11/18 22:02 [From Betadine] skin soap [From Betadine] AdvReac Itchy,red Verified 09/11/18 22:02 skin Surgical Scrub Allergy Unknown Itching, Uncoded 07/04/18 12:24 Red skin Physical Exam Vitals: Vital Signs Temp Pulse Pulse Resp BP BP Pulse Ox 09/12/18 04:00 98 F 88 17 114/60 98 09/12/18 03:32 89 17 09/12/18 02:03 97.7 F 89 17 134/69 99 09/12/18 01:26 98 F 85 16 142/82 98 09/11/18 22:56 98 F 73 18 126/75 98 09/11/18 22:00 70 09/11/18 21:50 98.4 F 70 16 128/73 96 Intake and Output 09/11/18 09/12/18 09/12/18 22:59 06:59 14:59 Intake Total 400 Output Total 250 Balance 150 Intake: Oral 400 Output: Urine 250 Other: Voiding Method Urinal Weight 81.647 kg 81.6 kg PHYSICAL EXAMINATION: GENERAL: 78-year-old gentleman in no acute distress at the time of my examination HEENT: Head is atraumatic, normocephalic. Pupils equal, round. Sclera anicteric. Conjunctiva are clear. Mucous membranes of the mouth are moist. Neck is supple. There is no elevated jugular venous pressure. No carotid bruit is heard. HEART EXAMINATION: Heart S1, S2 normal. No murmur or gallop heard. CHEST EXAMINATION: Lungs are clear to auscultation and precussion. No chest wall tenderness is noted on palpation or with deep breathing. ABDOMEN: Soft, mild generalized tenderness . Bowel sounds are heard. No organomegaly noted. EXTREMITIES: 2+ peripheral pulses with no evidence of peripheral edema and no calf tenderness noted. NEUROLOGIC patient is awake, alert and oriented 2 . . Results 09/12/18 04:38 09/12/18 04:38 Cardiac Enzymes 09/11/18 09/11/18 09/12/18 Range/Units 22:25 22:25 04:38 AST 52 (17-59) U/L Troponin I 0.068 H* 0.068 H* (0.000-0.034) ng/mL Coagulation 09/11/18 Range/Units 22:25 PT 10.6 (9.0-12.0) sec APTT 21.2 L (22.0-30.0) sec CBC 09/11/18 09/12/18 Range/Units 22:25 04:38 WBC 6.9 5.9 (3.8-10.6) k/uL RBC 4.05 L 3.60 L (4.30-5.90) m/uL Hgb 12.4 L 11.1 L (13.0-17.5) gm/dL Hct 37.7 L 34.0 L (39.0-53.0) % Plt Count 243 230 (150-450) k/uL Comprehensive Metabolic Panel 09/11/18 09/12/18 Range/Units 22:25 04:38 Sodium 142 139 (137-145) mmol/L Potassium 4.6 4.5 (3.5-5.1) mmol/L Chloride 108 H 109 H (98-107) mmol/L Carbon Dioxide 23 20 L (22-30) mmol/L BUN 31 H 28 H (9-20) mg/dL Creatinine 0.95 0.79 (0.66-1.25) mg/dL Glucose 117 H 157 H (74-99) mg/dL Calcium 9.7 8.9 (8.4-10.2) mg/dL AST 52 (17-59) U/L ALT 57 (21-72) U/L Alkaline Phosphatase 100 (38-126) U/L Total Protein 6.7 (6.3-8.2) g/dL Albumin 3.7 (3.5-5.0) g/dL Current Medications Generic Name Dose Route Start Last Admin Trade Name Freq PRN Reason Stop Dose Admin Hydrocodone Bitart/Acetaminophen 1 each 09/12/18 00:11 09/12/18 01:38 Vincent 5-325 PO 1 each Q6H PRN Administration Pain Albuterol/Ipratropium 3 ml 09/12/18 08:00 09/12/18 08:26 Duoneb 0.5 Mg-3 Mg/3 Ml Soln INHALATION Not Given RT-QID [facility] Aspirin 325 mg 09/13/18 09:00 Aspirin PO DAILY [facility] Aspirin 81 mg 09/12/18 09:00 Aspirin PO DAILY [facility] Clopidogrel Bisulfate 75 mg 09/12/18 09:00 Plavix PO DAILY [facility] Furosemide 20 mg 09/12/18 09:00 Lasix PO DAILY [facility] Insulin Aspart 0 unit 07/16/19 07:30 09/12/18 06:44 Novolog SQ 2 unit ACHS AALIYAH Administration Protocol Lisinopril 5 mg 09/12/18 09:00 Zestril PO BID [facility] Metoprolol Tartrate 25 mg 09/12/18 09:00 Lopressor PO BID [facility] Miscellaneous Information 1 each 09/12/18 02:01 Magnesium Per Protocol MISCELLANE DAILY PRN Per Protocol Protocol Nitroglycerin 0.4 mg 09/12/18 00:06 Nitrostat SUBLINGUAL Q5M PRN Chest Pain Pravastatin Sodium 40 mg 09/12/18 09:00 Pravachol PO DAILY [facility] Quetiapine Fumarate 25 mg 09/12/18 21:00 Seroquel PO HS [facility] Spironolactone 25 mg 09/12/18 09:00 Aldactone PO DAILY [facility] Tramadol HCl 50 mg 09/12/18 00:09 09/12/18 07:46 Ultram PO 50 mg Q6H PRN Administration Pain Trimethoprim/Sulfamethoxazole 1 each 09/12/18 09:00 Bactrim Ds PO BID [facility] Intake and Output 09/11/18 09/12/18 09/12/18 22:59 06:59 14:59 Intake Total 400 Output Total 250 Balance 150 Intake: Oral 400 Output: Urine 250 Other: Voiding Method Urinal Weight 81.647 kg 81.6 kg 09/12/18 04:38 09/12/18 04:38 EKG Interpretations (text) EKG shows normal sinus rhythm with right bundle branch block pattern, left anterior fascicular block and occasional PVCs Assessment and Plan Plan: Assessment and plan #1 hypotension, here the patient's blood pressure has been running between 116/60 and 140/80. #2 recent hospitalization with a non-STEMI, cardiogenic shock, status post stent placement of saphenous vein graft to the obtuse marginal of the circumflex and circumflex, status post placement of intra-aortic balloon pump. Echo performed last month revealed an ejection fraction of 45-50 #3 history of hypertension #4 hyperlipidemia #5 known history of coronary artery disease with prior bypass surgery in 2008 #6 chronic back pain #7 diabetes Plan We will resume the home medications that the patient was recently discharged on, continue to monitor his blood pressure here which appears to be stable on his current regime. We will discontinue the full aspirin and continue baby aspirin along with Plavix. Further recommendations to follow. DNP note has been reviewed, I agree with a documented findings and plan of care. Patient was seen and examined.
[2018-09-12] MEDS: CLOPIDOGREL 75 MG TAB PO SCH (09:37)
[2018-09-12] MEDS: PRAVASTATIN SODIUM 40 MG TAB PO SCH (09:37)
[2018-09-12] MEDS: FUROSEMIDE 20 MG TAB PO SCH (09:38)
[2018-09-12] MEDS: METOPROLOL TARTRATE 25 MG TAB PO SCH ×2 (09:38→19:43)
[2018-09-12] MEDS: SPIRONOLACTONE 25 MG TAB PO SCH (09:38)
[2018-09-12] MEDS: LISINOPRIL 5 MG TAB PO SCH ×2 (09:38→19:43)
[2018-09-12] MEDS: ASPIRIN 81 MG PO SCH (09:38)
[2018-09-12] MEDS: SULFAMETHOX-TMP 800-160MG 1 EACH TAB PO SCH ×2 (09:38→19:43)
[2018-09-12] MEDS ORDERED: NON-FORMULARY DRUG (Prevagen 1 TAB) PO SCH (11:00)
[2018-09-12] MEDS: ARTIFICIAL TEARS-HYPROMELLOSE DROPS 15 ML BTL BOTH EYES SCH ×3 (11:20→21:31)
[2018-09-12] MEDS: MULTIVITAMINS, THERA 1 EACH TAB PO SCH (11:20)
[2018-09-12] MEDS: INSULIN DETEMIR (LEVEMIR) 100 UNIT/ML SYR SQ SCH (11:20)
[2018-09-12 11:54] LABS: Glucose,Whole Blood 126 mg/dL (75-99)
[2018-09-12] MEDS ORDERED: DICYCLOMINE 20 MG TAB PO PRN (15:03)
--- NOTE | 2018-09-12 16:23 | P.HPIM ---
History of Present Illness H&P Date: 09/12/18 Chief Complaint: Tired History of presenting complaint: This is 6-year-old patient of Dr. Dean Evangelista. Chronic stable medical conditions include diabetes, hyperlipidemia, hypertension, osteoarthritis, obstructive sleep apnea. Patient's previously had Yaron bypass. Patient was recently discharged from the hospital. Was then admitted for acute non-Q-wave myocardial infarction. Had a cardiac catheterization was found a significant coronary artery disease. Patient had a stent to the RCA emergently. Also PDA branch of RCA as well as stenting to the saphenous vein graft to the marginal was performed. Patient also required intra-aortic balloon pump and a temporary pacemaker. Subsequently patient had a tumultuous course and admitted to ICU. Patient was on the ventilator. Patient also was then delirious. Patient subsequently was transferred to inpatient rehab. Most of the history is obtained by the at the bedside. Patient's been not eating much today. Doesn't really walk much. The use a wheelchair. Patient's had chronic abdominal pain on and off. Has been told that he is got strictures. Patient was sent in for being weak tired rundown. Denies any obvious chest pain. Since yesterday evening he has been here he does walk to the bathroom with support. Did also tolerate some diet. Not really interested in things. Just tired and rundown. No nausea vomiting. No fever no chills. Review of systems: GEN.: Weak tired, decreased appetite EYES: None HEENT: None NECK: None RESPIRATORY: Occasionally short of breath CARDIOVASCULAR: None GASTROINTESTINAL: None GENITOURINARY: None MUSCULOSKELETAL: Some pain in the joints LYMPHATICS: None HEMATOLOGICAL: None PSYCHIATRY: Does feel a bit low NEUROLOGICAL: None Past medical history: Coronary artery disease with coronary stent, diabetes mellitus type 2, hyperlipidemia, primary osteoarthritis, obstructive sleep apnea, chronic bladder outflow obstruction,. Social history: Does not smoke or drink alcohol. . Currently at inpatient rehab [facility] Family history: Prostate cancer Physical examination: VITAL SIGNS: 98.4, 70, 16, 128 x 73, 96% room air GENERAL: Average built, laying in bed, tired appearing. EYES: Pupils equal. Conjunctiva normal. HEENT: External appearance of nose and ears normal, oral cavity grossly normal. NECK: JVD not raised; masses not palpable. HEART: First and second heart sounds are normal; no edema. LUNGS: Respiratory rate normal; decreased breath sounds. ABDOMEN: Soft, nontender, liver spleen not palpable, no masses palpable. PSYCH: Laying in bed, tired appearing, able to answer questionsl. NEUROLOGICAL: Cranial nerves grossly intact; no facial asymmetry, power and sensation grossly intact. LYMPHATICS: No lymph nodes palpable in the axilla and neck INVESTIGATIONS, reviewed in the clinical context White count 5.9 hemoglobin 11.1 platelets 230 potassium 4.5 bun 28 creatinine 0.79 EKG tracing personally reviewed by me shows right bundle branch block, PVCs, bifascicular block Chest x-ray film personally reviewed by me shows no obvious infiltrates Assessment: -Medical debility, multifactorial with patient with decreased appetite, decreased ambulation, causing weak and tired-recent acute non-Q-wave [place] -Acute non-Q-wave myocardial infarction, on 08/23/2018 -Coronary artery disease with severe significant disease to the left main and right coronary artery. With coronary intervention -Diabetes mellitus type 2 chronically on insulin -Hyperlipidemia -Primary osteoarthritis -obstructive. 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 Was followed by Dr. Arroyo -Positive troponin, probably from hemodynamic mismatch not felt to be acute coronary syndrome -CODE STATUS DO NOT RESUSCITATE Plan: Cardiogenic was consulted. Home medications resumed. PTOT to be consulted. Patient did walk to the bathroom with support. Per the actually ate better. Did discuss length about patient's chronic abdominal pain. We will try Bentyl 5 mg 4 times day. We'll also try heating pad when necessary. Have the patient set up in a chair. Also discussed at length acute patient involved in activities like reading and doing puzzles that patient was doing extensively before. Past Medical History Past Medical History: Coronary Artery Disease (CAD), Cancer, Diabetes Mellitus, Hyperlipidemia, Hypertension, Memory Impairment, Osteoarthritis (OA), Pneumonia, Prostate Disorder, Sleep Apnea/CPAP/BIPAP Additional Past Medical History / Comment(s): Prostate cancer-2011- tx with radiation. HAS ABD ADHESIONS,. abdominal hernia History of Any Multi-Drug Resistant Organisms: MRSA Date of last positivie culture/infection: 08/30/18 MDRO Source:: Sputum Past Surgical History: Appendectomy, Back Surgery, Cholecystectomy, Coronary Bypass/CABG, Heart Catheterization, Hernia Repair, Joint Replacement, Orthopedic Surgery Additional Past Surgical History / Comment(s): ORIF Rt Ankle. ORIF Rt Fibula Surgery. RT Knee Replacement. 2008 Triple CABG. Abdominal adhesions. Fatty tumor from neck. CTR jono. Abdominal surgery with mesh in 2001. Back nerve surgery. Rotator cuff-left shoulder. ING hernia repair w/ mesh. 3 fatty tumors removed 08/15/15, COLONOSCOPY Past Anesthesia/Blood Transfusion Reactions: No Reported Reaction Smoking Status: Never smoker - Past Family History Father History Unknown: Yes Family Medical History: Cancer Additional Family Medical History / Comment(s): PROSTATE CANCER Son(s) Family Medical History: Cancer Additional Family Medical History / Comment(s): TESTICULAR CANCER Mother Family Medical History: Coronary Artery Disease (CAD), Hypertension Sister(s) Family Medical History: Cancer Medications and Allergies Home Medications Medication Instructions Recorded Confirmed Type INSULIN LISPRO (humaLOG) [humaLOG] See Protocol SQ ACHS 11/07/13 09/11/18 History Cholecalciferol [Vitamin D3 (25 1,000 unit PO HS 07/14/15 09/11/18 History Mcg = 1000 Iu)] Tamsulosin [Flomax] 0.4 mg PO HS 07/14/17 09/11/18 History Pravastatin Sodium [Pravachol] 40 mg PO DAILY 08/03/17 09/11/18 History Multivitamins, Thera [Multivitamin 1 tab PO DAILY 07/04/18 09/11/18 History (formulary)] Prevagen 1 tab PO DAILY 07/04/18 09/11/18 History Aspirin 81 mg PO DAILY chew 09/06/18 09/11/18 Rx Clopidogrel [Plavix] 75 mg PO DAILY tab 09/06/18 09/11/18 Rx Furosemide [Lasix] 20 mg PO DAILY tab 09/06/18 09/11/18 Rx Insulin Glargine [Lantus] 25 unit SQ QAM #0 09/06/18 09/11/18 Rx Ipratropium-Albuterol Nebulize 3 ml INHALATION RT-QID ampul.neb 09/06/18 09/11/18 Rx [Duoneb 0.5 mg-3 mg/3 ml Soln] Lisinopril [Zestril] 5 mg PO BID tab 09/06/18 09/11/18 Rx Metoprolol Tartrate [Lopressor] 25 mg PO BID tab 09/06/18 09/11/18 Rx QUEtiapine [SEROquel] 25 mg PO HS #3 tab 09/06/18 09/11/18 Rx Spironolactone [Aldactone] 25 mg PO DAILY tab 09/06/18 09/11/18 Rx traMADol HCL [Ultram] 50 mg PO Q6H PRN #12 tablet 09/06/18 09/11/18 Rx Artificial Tears-Hypromellose 1 drops BOTH EYES TID 09/11/18 09/11/18 History [Artificial Tear Drops] Sulfamethox-Tmp 800-160Mg [Bactrim 1 tab PO BID 09/11/18 09/11/18 History DS 800-160 mg] Allergies Allergy/AdvReac Type Severity Reaction Status Date / Time Iodinated Contrast- Oral and Allergy Rash/Hives Verified 09/11/18 22:02 IV Dye iodine Allergy Rash/Hives Verified 09/11/18 22:02 Penicillins Allergy Swelling Verified 09/11/18 22:02 duloxetine [From Cymbalta] AdvReac PRICKLY Verified 09/11/18 22:02 FEELING IN HEAD povidone-iodine AdvReac Itchy,red Verified 09/11/18 22:02 [From Betadine] skin soap [From Betadine] AdvReac Itchy,red Verified 09/11/18 22:02 skin Surgical Scrub Allergy Unknown Itching, Uncoded 07/04/18 12:24 Red skin Physical Exam Vitals: Vital Signs Temp Pulse Pulse Resp BP BP Pulse Ox 09/12/18 15:31 76 09/12/18 15:19 72 95 09/12/18 11:14 80 09/12/18 11:10 98.0 F 68 18 134/67 100 09/12/18 11:00 81 09/12/18 08:25 98.4 F 79 18 147/72 98 09/12/18 04:00 98 F 88 17 114/60 98 09/12/18 03:32 89 17 09/12/18 02:03 97.7 F 89 17 134/69 99 09/12/18 01:26 98 F 85 16 142/82 98 09/11/18 22:56 98 F 73 18 126/75 98 09/11/18 22:00 70 09/11/18 21:50 98.4 F 70 16 128/73 96 Intake and Output 09/12/18 09/12/18 09/12/18 06:59 14:59 22:59 Intake Total 400 600 Output Total 250 Balance 150 600 Intake: Oral 400 600 Output: Urine 250 Other: Voiding Method Urinal Urinal # Voids 1 # Bowel Movements 0 Weight 81.6 kg Results CBC & Chem 7: 09/12/18 04:38 09/12/18 04:38 Labs: Abnormal Lab Results - Last 24 Hours (Table) 09/11/18 09/11/18 09/11/18 Range/Units 22:25 22:25 22:25 RBC 4.05 L (4.30-5.90) m/uL Hgb 12.4 L (13.0-17.5) gm/dL Hct 37.7 L (39.0-53.0) % RDW 15.6 H (11.5-15.5) % APTT 21.2 L (22.0-30.0) sec Chloride 108 H (98-107) mmol/L Carbon Dioxide (22-30) mmol/L BUN 31 H (9-20) mg/dL Glucose 117 H (74-99) mg/dL POC Glucose (mg/dL) (75-99) mg/dL Troponin I (0.000-0.034) ng/mL 09/11/18 09/12/18 09/12/18 Range/Units 22:25 02:16 04:38 RBC (4.30-5.90) m/uL Hgb (13.0-17.5) gm/dL Hct (39.0-53.0) % RDW (11.5-15.5) % APTT (22.0-30.0) sec Chloride (98-107) mmol/L Carbon Dioxide (22-30) mmol/L BUN (9-20) mg/dL Glucose (74-99) mg/dL POC Glucose (mg/dL) 127 H (75-99) mg/dL Troponin I 0.068 H* 0.068 H* (0.000-0.034) ng/mL 09/12/18 09/12/18 09/12/18 Range/Units 04:38 04:38 06:03 RBC 3.60 L (4.30-5.90) m/uL Hgb 11.1 L (13.0-17.5) gm/dL Hct 34.0 L (39.0-53.0) % RDW (11.5-15.5) % APTT (22.0-30.0) sec Chloride 109 H (98-107) mmol/L Carbon Dioxide 20 L (22-30) mmol/L BUN 28 H (9-20) mg/dL Glucose 157 H (74-99) mg/dL POC Glucose (mg/dL) 154 H (75-99) mg/dL Troponin I (0.000-0.034) ng/mL 09/12/18 09/12/18 Range/Units 10:42 11:51 RBC (4.30-5.90) m/uL Hgb (13.0-17.5) gm/dL Hct (39.0-53.0) % RDW (11.5-15.5) % APTT (22.0-30.0) sec Chloride (98-107) mmol/L Carbon Dioxide (22-30) mmol/L BUN (9-20) mg/dL Glucose (74-99) mg/dL POC Glucose (mg/dL) 126 H (75-99) mg/dL Troponin I 0.062 H* (0.000-0.034) ng/mL Thrombosis Risk Factor Assmnt - Choose All That Apply Each Risk Factor Represents 3 Points: Age 75 years or older Other congenital or acquired thrombophilia - If yes, enter type in comment: No Thrombosis Risk Factor Assessment Total Risk Factor Score: 3 Thrombosis Risk Factor Assessment Level: Moderate Risk
[2018-09-12 16:48] LABS: Glucose,Whole Blood 86 mg/dL (75-99)
[2018-09-12] MEDS: DICYCLOMINE 10 MG CAP PO SCH ×2 (17:38→21:31)
[2018-09-12] MEDS: ENOXAPARIN 40 MG/0.4 ML SYRINGE SQ SCH (18:51)
[2018-09-12] MEDS ORDERED: TAMSULOSIN 0.4 MG CAP.ER.24H PO SCH (21:00)
[2018-09-12] MEDS ORDERED: CHOLECALCIFEROL 1,000 UNIT TAB PO SCH (21:00)
[2018-09-12] MEDS ORDERED: QUEtiapine 25 MG TAB PO SCH (21:00)
[2018-09-12 21:20] LABS: Glucose,Whole Blood 137 mg/dL (75-99)
[2018-09-13 06:20] LABS: HCT 35.6 % (39.0-53.0); HGB 11.6 gm/dL (13.0-17.5); Hypochromasia Slight; MCHC 32.7 g/dL (31.0-37.0); MCV 94.9 fL (80.0-100.0); Mean Platelet Volume 9.7; Platelet Count 214 k/uL (150-450); RBC 3.75 m/uL (4.30-5.90); RDW 15.8 % (11.5-15.5); WBC 5.5 k/uL (3.8-10.6)
[2018-09-13 06:31] LABS: African American GFR (CKD) >90 (>60 ml/min/1.73 sqM); Anion Gap 8 mmol/L; Blood Urea Nitrogen 16 mg/dL (9-20); Calcium 8.9 mg/dL (8.4-10.2); Carbon Dioxide 22 mmol/L (22-30); Chloride 109 mmol/L (98-107); Glucose 129 mg/dL (74-99); Magnesium 1.8 mg/dL (1.6-2.3); Potassium 4.7 mmol/L (3.5-5.1); Sodium 139 mmol/L (137-145)
[2018-09-13 06:34] LABS: Glucose,Whole Blood 124 mg/dL (75-99)
[2018-09-13 06:41] LABS: Eosinophils # (M) 0.22 k/uL (0-0.7); Lymphocytes # (M) 1.49 k/uL (1.0-4.8); Neutrophils % (M) 60 %; Nucleated Red Blood Cells 0 /100 WBC (0-0); Total Cells Counted 100
[2018-09-13] MEDS: INSULIN ASPART (NovoLOG) 100 UNIT/ML VIAL SQ SCH ×3 (06:47→16:57)
[2018-09-13] MEDS: IPRATROPIUM-ALBUTEROL 3 ML NEB INHALATION SCH ×3 (07:38→15:15)
[2018-09-13] MEDS: LISINOPRIL 5 MG TAB PO SCH (08:03)
[2018-09-13] MEDS: ENOXAPARIN 40 MG/0.4 ML SYRINGE SQ SCH (08:03)
[2018-09-13] MEDS: METOPROLOL TARTRATE 25 MG TAB PO SCH (08:03)
[2018-09-13] MEDS: SPIRONOLACTONE 25 MG TAB PO SCH (08:03)
[2018-09-13] MEDS: MULTIVITAMINS, THERA 1 EACH TAB PO SCH (08:03)
[2018-09-13] MEDS: PRAVASTATIN SODIUM 40 MG TAB PO SCH (08:03)
[2018-09-13] MEDS: ASPIRIN 81 MG PO SCH (08:03)
[2018-09-13] MEDS: INSULIN DETEMIR (LEVEMIR) 100 UNIT/ML SYR SQ SCH (08:03)
[2018-09-13] MEDS: DICYCLOMINE 10 MG CAP PO SCH ×3 (08:03→16:57)
[2018-09-13] MEDS: SULFAMETHOX-TMP 800-160MG 1 EACH TAB PO SCH (08:03)
[2018-09-13] MEDS: CLOPIDOGREL 75 MG TAB PO SCH (08:03)
[2018-09-13] MEDS: FUROSEMIDE 20 MG TAB PO SCH (08:03)
[2018-09-13] MEDS: ARTIFICIAL TEARS-HYPROMELLOSE DROPS 15 ML BTL BOTH EYES SCH ×2 (08:04→16:46)
[2018-09-13] MEDS ORDERED: ASPIRIN 325 MG TAB PO SCH (09:00)
[2018-09-13] MEDS: HYDROcodone/APAP 5-325MG 1 EACH TAB PO PRN (10:33)
[2018-09-13 11:19] LABS: Glucose,Whole Blood 160 mg/dL (75-99)
[2018-09-13] MEDS: traMADol 50 MG TAB PO PRN (12:31)
[2018-09-13 13:11] VITALS: RESP 18
--- NOTE | 2018-09-13 13:38 | P.DS ---
Providers Date of admission: 09/12/18 00:06 Expected date of discharge: 09/13/18 Attending physician: Amos Yañez Consults: 09/12/18 00:06 Consult Physician Urgent Consulting Provider: [facility] Consult Reason/Comments: s/p NSTEMI on baloon pump last month, here with Hypotension, Trop 0.06 Do you want consulting provider notified?: Yes, Notify in am Primary care physician: [facility] Course: Hospital course: This is 6-year-old patient of Dr. Dean Evangelista. Chronic stable medical conditions include diabetes, hyperlipidemia, hypertension, osteoarthritis, obstructive sleep apnea. Patient's previously had [place] bypass. Patient was recently discharged from the hospital. Was then admitted for acute non-Q-wave myocardial infarction. Had a cardiac catheterization was found a significant coronary artery disease. Patient had a stent to the RCA emergently. Also PDA branch of RCA as well as stenting to the saphenous vein graft to the marginal was performed. Patient also required intra-aortic balloon pump and a temporary pacemaker. Subsequently patient had a tumultuous course and admitted to ICU. Patient was on the ventilator. Patient also was then delirious. Patient subsequently was transferred to inpatient rehab. Most of the history is obtained by the at the bedside. Patient's been not eating much today. Doesn't really walk much. The use a wheelchair. Patient's had chronic abdominal pain on and off. Has been told that he is got strictures. Patient was sent in for being weak tired rundown. Denies any obvious chest pain. Since yesterday evening he has been here he does walk to the bathroom with support. Did also tolerate some diet. Not really interested in things. Just tired and rundown. No nausea vomiting. No fever no chills. Patient is continued to improve.. Activity walk a few status. Eating better. Blood pressure is improved. Discussed with the patient. Consultation: Dr. Nilton Redding from cardiology Physical examination: VITAL SIGNS: 97, 63, 18, 126/63, 96% room air GENERAL: Laying in bed, comfortable. EYES: Pupils equal. Conjunctiva normal. HEENT: External appearance of nose and ears normal, oral cavity grossly normal. NECK: JVD not raised; masses not palpable. HEART: First and second heart sounds are normal; no edema. LUNGS: Respiratory rate normal; decreased breath sounds. ABDOMEN: Soft, nontender, liver spleen not palpable, no masses palpable. PSYCH: Awake answering questions appropriately NEUROLOGICAL: Cranial nerves grossly intact; no facial asymmetry, power and sensation grossly intact. INVESTIGATIONS, reviewed in the clinical context Hemoglobin 11.6 potassium 4.7 creatinine 0.79 EKG tracing personally reviewed by me shows right bundle branch block, PVCs, bifascicular block Chest x-ray film personally reviewed by me shows no obvious infiltrates Assessment: -Medical debility, multifactorial with patient with decreased appetite, decreased ambulation, causing weak and tired-recent acute non-Q-wave VA -Acute non-Q-wave myocardial infarction, on 08/23/2018 -Coronary artery disease with severe significant disease to the left main and right coronary artery. With coronary intervention -Diabetes mellitus type 2 chronically on insulin -Hyperlipidemia -Primary osteoarthritis -obstructive. 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 Was followed by Dr. Arroyo -Positive troponin, probably from hemodynamic mismatch not felt to be acute coronary syndrome -CODE STATUS DO NOT RESUSCITATE Disposition: ECF. Patient Condition at Discharge: Stable Plan - Discharge Summary Discharge Rx Participant: No New Discharge Prescriptions: No Action INSULIN LISPRO (humaLOG) [humaLOG] See Protocol SQ ACHS Cholecalciferol [Vitamin D3 (25 Mcg = 1000 Iu)] 1,000 unit PO HS Tamsulosin [Flomax] 0.4 mg PO HS Pravastatin Sodium [Pravachol] 40 mg PO DAILY Prevagen 1 tab PO DAILY Multivitamins, Thera [Multivitamin (formulary)] 1 tab PO DAILY Spironolactone [Aldactone] 25 mg PO DAILY tab Aspirin 81 mg PO DAILY chew Ipratropium-Albuterol Nebulize [Duoneb 0.5 mg-3 mg/3 ml Soln] 3 ml INHALATION RT-QID ampul.neb Furosemide [Lasix] 20 mg PO DAILY tab Metoprolol Tartrate [Lopressor] 25 mg PO BID tab Clopidogrel [Plavix] 75 mg PO DAILY tab QUEtiapine [SEROquel] 25 mg PO HS #3 tab Lisinopril [Zestril] 5 mg PO BID tab Insulin Glargine [Lantus] 25 unit SQ QAM #0 traMADol HCL [Ultram] 50 mg PO Q6H PRN #12 tablet PRN Reason: Pain Sulfamethox-Tmp 800-160Mg [Bactrim DS 800-160 mg] 1 tab PO BID Artificial Tears-Hypromellose [Artificial Tear Drops] 1 drops BOTH EYES TID Discharge Medication List INSULIN LISPRO (humaLOG) [humaLOG] See Protocol SQ ACHS 11/07/13 [History] Cholecalciferol [Vitamin D3 (25 Mcg = 1000 Iu)] 1,000 unit PO HS 07/14/15 [History] Tamsulosin [Flomax] 0.4 mg PO HS 07/14/17 [History] Pravastatin Sodium [Pravachol] 40 mg PO DAILY 08/03/17 [History] Multivitamins, Thera [Multivitamin (formulary)] 1 tab PO DAILY 07/04/18 [History] Prevagen 1 tab PO DAILY 07/04/18 [History] Aspirin 81 mg PO DAILY chew 09/06/18 [Rx] Clopidogrel [Plavix] 75 mg PO DAILY tab 09/06/18 [Rx] Furosemide [Lasix] 20 mg PO DAILY tab 09/06/18 [Rx] Insulin Glargine [Lantus] 25 unit SQ QAM #0 09/06/18 [Rx] Ipratropium-Albuterol Nebulize [Duoneb 0.5 mg-3 mg/3 ml Soln] 3 ml INHALATION RT-QID ampul.neb 09/06/18 [Rx] Lisinopril [Zestril] 5 mg PO BID tab 09/06/18 [Rx] Metoprolol Tartrate [Lopressor] 25 mg PO BID tab 09/06/18 [Rx] QUEtiapine [SEROquel] 25 mg PO HS #3 tab 09/06/18 [Rx] Spironolactone [Aldactone] 25 mg PO DAILY tab 09/06/18 [Rx] traMADol HCL [Ultram] 50 mg PO Q6H PRN #12 tablet 09/06/18 [Rx] Artificial Tears-Hypromellose [Artificial Tear Drops] 1 drops BOTH EYES TID 09/11/18 [History] Sulfamethox-Tmp 800-160Mg [Bactrim DS 800-160 mg] 1 tab PO BID 09/11/18 [History] Follow up Appointment(s)/Referral(s): Souphis,Lul, DO [Primary Care Provider] - 1-2 days
--- NOTE | 2018-09-13 14:17 | P.PN ---
Subjective Progress Note Date: 09/13/18 This is an 78-year-old gentleman who has a known history of coronary artery disease with prior bypass surgery in 2008 at which time he underwent GAVIRIA to the LAD, saphenous vein graft to the diagonal, saphenous vein graft to the OM, diabetes, hypertension, hyperlipidemia, dementia, prostate cancer, chronic pain, presented to the hospital here on August 22 after being transferred from [facility] where he presented with chest discomfort. Patient was taken to the cardiac catheterization lab where he underwent successful stenting of the distal RCA and successful stenting of the PDA branch of the RCA, temporary pacemaker was placed at that time as well as balloon pump, patient was just released to [facility] on the of this month. At the [facility], prior to admission here was noted that the patient's blood pressure was persistently around 90 systolic, patient was asymptomatic with this. Because of the low blood pressures he was readmitted to the hospital. Blood pressure on arrival here 128/70 with a heart rate in the 70s, 96% on room air. Blood pressure this morning 114/60 with a heart rate in the 80s, 98% on 2 L of oxygen. White blood cell count is normal, hemoglobin 11.1, platelet count 230, sodium 139, potassium 4.5, BUN 28 and creatinine 0.7. Troponin 0.068, 0.068. BNP level 1310. Chest x-ray does not reveal any acute findings. EKG shows a normal sinus rhythm with right bundle branch block pattern and left anterior fascicular block. Occasional PVCs. At the time of my examination this morning, patient denies any dizziness or lightheadedness, no chest discomfort, no palpitations. He is complaining of some mild abdominal discomfort. The patient did have an echocardiogram with Doppler study performed on August 23 which revealed an ejection fraction of 45-50%, basal inferior and inferior septal wall hypokinesia noted at that time. His medications at time of discharge included Plavix, Flomax, Aldactone 25 mg daily, Seroquel, Pravachol 40 daily, Lopressor 25 twice a day, Zestril 5 twice a day, Lasix 20 mg daily, as pirin 81 mg daily, and his diabetic meds. Patient here has been placed on a full aspirin as well as baby aspirin, we will discontinue the full aspirin, continue Plavix, Lasix 20 mg daily, lisinopril 5 mg twice a day, metoprolol 25 mg one tablet by mouth twice a day, Pravachol 40 mg daily, Aldactone 25 mg daily, we will continue to monitor blood pressures, however they seemed to remain stable at this current regime of medications. 09/13/2018 Patient seen and examined, blood pressure 126/60 with a heart rate in the 60s, 96% on room air. White blood cell count 5.5, hemoglobin 11.6, platelet count 214, sodium 139, potassium 4.7, BUN 16 and creatinine 0.7, magnesium 1.8. Objective - Vital Signs Vital signs: Vital Signs Temp 97 F L 09/13/18 08:00 Pulse 63 09/13/18 12:15 Resp 18 09/13/18 12:15 BP 126/63 09/13/18 12:15 Pulse Ox 96 09/13/18 12:15 Intake & Output 09/12/18 09/13/18 09/13/18 18:59 06:59 18:59 Intake Total 690 400 90 Output Total 100 Balance 690 400 -10 Weight 85.4 kg Intake: Oral 690 400 90 Output: Urine 100 Other: Voiding Method Toilet Toilet # Voids 0 2 # Bowel Movements 0 0 - Labs CBC & Chem 7: 09/13/18 05:59 09/13/18 05:59 Labs: Abnormal Lab Results - Last 24 Hours (Table) 09/12/18 09/13/18 09/13/18 Range/Units 21:17 05:59 05:59 RBC 3.75 L (4.30-5.90) m/uL Hgb 11.6 L (13.0-17.5) gm/dL Hct 35.6 L (39.0-53.0) % RDW 15.8 H (11.5-15.5) % Chloride 109 H (98-107) mmol/L Glucose 129 H (74-99) mg/dL POC Glucose (mg/dL) 137 H (75-99) mg/dL 09/13/18 09/13/18 Range/Units 06:32 11:16 RBC (4.30-5.90) m/uL Hgb (13.0-17.5) gm/dL Hct (39.0-53.0) % RDW (11.5-15.5) % Chloride (98-107) mmol/L Glucose (74-99) mg/dL POC Glucose (mg/dL) 124 H 160 H (75-99) mg/dL
--- NOTE | 2018-09-13 15:08 | P.PN ---
Subjective Progress Note Date: 09/13/18 This is an 78-year-old gentleman who has a known history of coronary artery disease with prior bypass surgery in 2008 at which time he underwent GAVIRIA to the LAD, saphenous vein graft to the diagonal, saphenous vein graft to the OM, diabetes, hypertension, hyperlipidemia, dementia, prostate cancer, chronic pain, presented to the hospital here on August 22 after being transferred from [facility] where he presented with chest discomfort. Patient was taken to the cardiac catheterization lab where he underwent successful stenting of the distal RCA and successful stenting of the PDA branch of the RCA, temporary pacemaker was placed at that time as well as balloon pump, patient was just released to [facility] on the of this month. At the [facility], prior to admission here was noted that the patient's blood pressure was persistently around 90 systolic, patient was asymptomatic with this. Because of the low blood pressures he was readmitted to the hospital. Blood pressure on arrival here 128/70 with a heart rate in the 70s, 96% on room air. Blood pressure this morning 114/60 with a heart rate in the 80s, 98% on 2 L of oxygen. White blood cell count is normal, hemoglobin 11.1, platelet count 230, sodium 139, potassium 4.5, BUN 28 and creatinine 0.7. Troponin 0.068, 0.068. BNP level 1310. Chest x-ray does not reveal any acute findings. EKG shows a normal sinus rhythm with right bundle branch block pattern and left anterior fascicular block. Occasional PVCs. At the time of my examination this morning, patient denies any dizziness or lightheadedness, no chest discomfort, no palpitations. He is complaining of some mild abdominal discomfort. The patient did have an echocardiogram with Doppler study performed on August 23 which revealed an ejection fraction of 45-50%, basal inferior and inferior septal wall hypokinesia noted at that time. His medications at time of discharge included Plavix, Flomax, Aldactone 25 mg daily, Seroquel, Pravachol 40 daily, Lopressor 25 twice a day, Zestril 5 twice a day, Lasix 20 mg daily, as pirin 81 mg daily, and his diabetic meds. Patient here has been placed on a full aspirin as well as baby aspirin, we will discontinue the full aspirin, continue Plavix, Lasix 20 mg daily, lisinopril 5 mg twice a day, metoprolol 25 mg one tablet by mouth twice a day, Pravachol 40 mg daily, Aldactone 25 mg daily, we will continue to monitor blood pressures, however they seemed to remain stable at this current regime of medications. 09/13/2018 Patient seen and examined, blood pressure 126/60 with a heart rate in the 60s, 96% on room air. White blood cell count 5.5, hemoglobin 11.6, platelet count 214, sodium 139, potassium 4.7, BUN 16 and creatinine 0.7, magnesium 1.8. Objective - Vital Signs Vital signs: Vital Signs Temp 97 F L 09/13/18 08:00 Pulse 63 09/13/18 12:15 Resp 18 09/13/18 12:15 BP 126/63 09/13/18 12:15 Pulse Ox 96 09/13/18 12:15 Intake & Output 09/12/18 09/13/18 09/13/18 18:59 06:59 18:59 Intake Total 690 400 90 Output Total 100 Balance 690 400 -10 Weight 85.4 kg Intake: Oral 690 400 90 Output: Urine 100 Other: Voiding Method Toilet Toilet # Voids 0 2 # Bowel Movements 0 0 - Exam GENERAL: 68-year-old gentleman in no acute distress at the time of my examination HEENT: Head is atraumatic, normocephalic. Pupils equal, round. Sclera anicteric. Conjunctiva are clear. Mucous membranes of the mouth are moist. Neck is supple. There is elevated jugular venous pressure. No carotid bruit is heard. HEART EXAMINATION: S1 and S2 irregularly irregular a systolic murmur is heard CHEST EXAMINATION:'s reveal diminished air entry to bilateral bases ABDOMEN: Soft, obese, nontender. Bowel sounds are heard. No organomegaly noted. EXTREMITIES: 1+ peripheral pulses with 2-3+ evidence of peripheral edema and no calf tenderness noted. NEUROLOGIC patient is awake, alert and oriented 3 . . - Labs CBC & Chem 7: 09/13/18 05:59 09/13/18 05:59 Labs: Abnormal Lab Results - Last 24 Hours (Table) 09/12/18 09/13/18 09/13/18 Range/Units 21:17 05:59 05:59 RBC 3.75 L (4.30-5.90) m/uL Hgb 11.6 L (13.0-17.5) gm/dL Hct 35.6 L (39.0-53.0) % RDW 15.8 H (11.5-15.5) % Chloride 109 H (98-107) mmol/L Glucose 129 H (74-99) mg/dL POC Glucose (mg/dL) 137 H (75-99) mg/dL 09/13/18 09/13/18 Range/Units 06:32 11:16 RBC (4.30-5.90) m/uL Hgb (13.0-17.5) gm/dL Hct (39.0-53.0) % RDW (11.5-15.5) % Chloride (98-107) mmol/L Glucose (74-99) mg/dL POC Glucose (mg/dL) 124 H 160 H (75-99) mg/dL Assessment and Plan Plan: Assessment and plan #1 hypotension, here the patient's blood pressure has been running between 116/60 and 140/80. #2 recent hospitalization with a non-STEMI, cardiogenic shock, status post stent placement of saphenous vein graft to the obtuse marginal of the circumflex and circumflex, status post placement of intra-aortic balloon pump. Echo performed last month revealed an ejection fraction of 45-50 #3 history of hypertension #4 hyperlipidemia #5 known history of coronary artery disease with prior bypass surgery in 2008 #6 chronic back pain #7 diabetes Plan From cardiology's perspective, we'll follow this patient on an as-needed basis only, please don't hesitate to call with any questions. DNP note has been reviewed, I agree with a documented findings and plan of care. Patient was seen and examined.
[2018-09-13 16:38] VITALS: BP 114/58; PULSE 67; TEMP 97.1
[2018-09-13 16:45] LABS: Glucose,Whole Blood 144 mg/dL (75-99)
== END 2018-09-13 18:39 ==
LOC: EC 21:48 → 3SCARD 09-12 00:06
PROVIDERS: ADMIT Hospitalist; ATTEND Hospitalist
DX: R53.81 Other malaise (principal); R79.89 Other specified abnormal findings of blood chemistry; E11.9 Type 2 diabetes mellitus without complications; E78.5 Hyperlipidemia, unspecified; F03.90 Unspecified dementia, unspecified severity, without behavioral disturbance, psychotic disturbance, mood disturbance, and anxiety; I95.9 Hypotension, unspecified; G47.33 Obstructive sleep apnea (adult) (pediatric); G89.29 Other chronic pain; R10.9 Unspecified abdominal pain; I10 Essential (primary) hypertension; M19.91 Primary osteoarthritis, unspecified site; I25.10 Atherosclerotic heart disease of native coronary artery without angina pectoris; I25.2 Old myocardial infarction; Z66 Do not resuscitate; Z95.1 Presence of aortocoronary bypass graft; I45.2 Bifascicular block; N32.0 Bladder-neck obstruction; Z96.651 Presence of right artificial knee joint; Z79.2 Long term (current) use of antibiotics; Z79.02 Long term (current) use of antithrombotics/antiplatelets; Z79.82 Long term (current) use of aspirin; Z79.4 Long term (current) use of insulin; Z79.899 Other long term (current) drug therapy; Z88.0 Allergy status to penicillin; Z88.8 Allergy status to other drugs, medicaments and biological substances; Z91.041 Radiographic dye allergy status; Z85.46 Personal history of malignant neoplasm of prostate; Z95.5 Presence of coronary angioplasty implant and graft; Z80.42 Family history of malignant neoplasm of prostate; Z80.43 Family history of malignant neoplasm of testis; Z82.49 Family history of ischemic heart disease and other diseases of the circulatory system
CPT/HCPCS: 96365; 96366; 96372 ×2; 96375; 99285; 36415; 94640 ×2; 94760; 93005; 83880; 80053; 80048 ×2; 83735 ×2; 84484 ×2; 85025 ×3; 85610; 85730; 71046; G0378 ×2; J1650 ×2; J1885; J3475

== ENCOUNTER 2018-09-14 07:38 | Emergency (ER) | payer MEDICARE, BC ==
[2018-09-14 07:45] VITALS: RESP 16
[2018-09-14] MEDS ORDERED: LORazepam 2 MG/ML INJ IV STA (07:54)
[2018-09-14] MEDS ORDERED: SODIUM CHLORIDE 0.9% 500 ML 500 ML IV STA (07:55)
[2018-09-14 08:34] LABS: ALT 47 U/L (21-72); AST 39 U/L (17-59); African American GFR (CKD) >90 (>60 ml/min/1.73 sqM); Albumin 3.5 g/dL (3.5-5.0); Alkaline Phosphatase 84 U/L (38-126); Amylase <30 U/L (30-110); Anion Gap 10 mmol/L; Blood Urea Nitrogen 15 mg/dL (9-20); Calcium 9.4 mg/dL (8.4-10.2); Carbon Dioxide 22 mmol/L (22-30); Chloride 107 mmol/L (98-107); Glucose 128 mg/dL (74-99); Lipase 51 U/L (23-300); Sodium 139 mmol/L (137-145); Total Bilirubin 0.8 mg/dL (0.2-1.3); Total Protein 6.3 g/dL (6.3-8.2)
[2018-09-14 08:38] LABS: Potassium 4.9 mmol/L (3.5-5.1)
[2018-09-14 08:40] LABS: HCT 38.4 % (39.0-53.0); HGB 12.4 gm/dL (13.0-17.5); MCH 30.3 pg (25.0-35.0); MCHC 32.2 g/dL (31.0-37.0); MCV 93.9 fL (80.0-100.0); Mean Platelet Volume 9.4; Platelet Count 220 k/uL (150-450); RBC 4.09 m/uL (4.30-5.90); RDW 14.7 % (11.5-15.5); WBC 5.6 k/uL (3.8-10.6)
[2018-09-14] MEDS ORDERED: methylPREDNISolone SOD SUCCI 125 MG/2 ML VIAL IV STA (08:45)
[2018-09-14] MEDS ORDERED: FAMOTIDINE 20 MG/2 ML VIAL IV STA (08:45)
[2018-09-14] MEDS ORDERED: diphenhydrAMINE 50 MG/ML 1 ML VIAL IVP STA (08:45)
[2018-09-14 09:10] LABS: Basophils # (M) 0.06 k/uL (0-0.2); Eosinophils # (M) 0.28 k/uL (0-0.7); Lymphocytes # (M) 1.57 k/uL (1.0-4.8); Monocytes # (M) 0.45 k/uL (0-1.0); Neutrophils # (M) 3.25 k/uL (1.3-7.7); Neutrophils % (M) 58 %; Nucleated Red Blood Cells 0 /100 WBC (0-0); Total Cells Counted 100
--- NOTE | 2018-09-14 09:10 | ED ---
General Adult HPI - General Chief complaint: Abdominal Pain Stated complaint: Abd pain Time Seen by Provider: 09/14/18 07:40 Source: EMS, RN notes reviewed Mode of arrival: EMS Limitations: no limitations - History of Present Illness Initial comments: This is an 78-year-old male who presents emergency Department complaining of lower abdominal pain. Patient states in the suprapubic region and started about a half hour prior to arrival. Patient denies any dysuria hematuria urinary frequency. Patient denies any nausea vomiting. Patient denies any diarrhea. Patient denies any chest pain difficult breathing shortest breath per patient denies any recent fever chills or cough. Patient doesn't know his past medical history and is a very poor historian. Patient has no person in the room with him he has no family member or caregiver. Only history EMS gave us was lower abdominal pain. Patient has a past medical history significant for dementia coronary artery disease hypertension and hyperlipidemia. - Related Data Home Medications Medication Instructions Recorded Confirmed Cholecalciferol [Vitamin D3 (25 1,000 unit PO HS 07/14/15 09/14/18 Mcg = 1000 Iu)] Tamsulosin [Flomax] 0.4 mg PO HS 07/14/17 09/14/18 Pravastatin Sodium [Pravachol] 40 mg PO DAILY 08/03/17 09/14/18 Multivitamins, Thera [Multivitamin 1 tab PO DAILY 07/04/18 09/14/18 (formulary)] Prevagen 1 tab PO DAILY 07/04/18 09/14/18 Artificial Tears-Hypromellose 1 drops BOTH EYES TID 09/11/18 09/14/18 [Artificial Tear Drops] Acetaminophen Tab [Tylenol] 650 mg PO Q6H PRN 09/14/18 09/14/18 Dicyclomine [Bentyl] 10 mg PO TID@0500,1300,2100 09/14/18 09/14/18 INSULIN LISPRO (humaLOG) [humaLOG] See Protocol SQ ACHS 09/14/18 09/14/18 Ipratropium-Albuterol Nebulize 3 ml INHALATION 09/14/18 09/14/18 [Duoneb 0.5 mg-3 mg/3 ml Soln] RT-QID@0500,11,17,23 Sulfamethox-Tmp 800-160Mg [Bactrim 1 tab PO BID 09/14/18 09/14/18 DS 800-160 mg] Previous Rx's Medication Instructions Recorded Aspirin 81 mg PO DAILY chew 09/06/18 Clopidogrel [Plavix] 75 mg PO DAILY tab 09/06/18 Furosemide [Lasix] 20 mg PO DAILY tab 09/06/18 Insulin Glargine [Lantus] 25 unit SQ QAM #0 09/06/18 Lisinopril [Zestril] 5 mg PO BID tab 09/06/18 Metoprolol Tartrate [Lopressor] 25 mg PO BID tab 09/06/18 Spironolactone [Aldactone] 25 mg PO DAILY tab 09/06/18 QUEtiapine [SEROquel] 25 mg PO HS #3 tab 09/13/18 traMADol HCL [Ultram] 50 mg PO Q6H PRN #12 tablet 09/13/18 Allergies Allergy/AdvReac Type Severity Reaction Status Date / Time Iodinated Contrast- Oral and Allergy Rash/Hives Verified 09/14/18 09:10 IV Dye iodine Allergy Rash/Hives Verified 09/14/18 09:10 Penicillins Allergy Swelling Verified 09/14/18 09:10 duloxetine [From Cymbalta] AdvReac PRICKLY Verified 09/14/18 09:10 FEELING IN HEAD povidone-iodine AdvReac Itchy,red Verified 09/14/18 09:10 [From Betadine] skin soap [From Betadine] AdvReac Itchy,red Verified 09/14/18 09:10 skin Surgical Scrub Allergy Unknown Itching, Uncoded 07/04/18 12:24 Red skin Review of Systems ROS Statement: Those systems with pertinent positive or pertinent negative responses have been documented in the HPI. ROS Other: All systems not noted in ROS Statement are negative. Past Medical History Past Medical History: Coronary Artery Disease (CAD), Cancer, Diabetes Mellitus, Hyperlipidemia, Hypertension, Memory Impairment, Osteoarthritis (OA), Pneumonia, Prostate Disorder, Sleep Apnea/CPAP/BIPAP Additional Past Medical History / Comment(s): Prostate cancer-2011- tx with radiation. HAS ABD ADHESIONS,. abdominal hernia History of Any Multi-Drug Resistant Organisms: MRSA Date of last positivie culture/infection: 08/30/18 MDRO Source:: Sputum Past Surgical History: Appendectomy, Back Surgery, Cholecystectomy, Coronary Bypass/CABG, Heart Catheterization, Hernia Repair, Joint Replacement, Orthopedic Surgery Additional Past Surgical History / Comment(s): ORIF Rt Ankle. ORIF Rt Fibula S urgery. RT Knee Replacement. 2008 Triple CABG. Abdominal adhesions. Fatty tumor from neck. CTR jono. Abdominal surgery with mesh in 2001. Back nerve surgery. Rotator cuff-left shoulder. ING hernia repair w/ mesh. 3 fatty tumors removed 08/15/15, COLONOSCOPY Past Anesthesia/Blood Transfusion Reactions: No Reported Reaction Past Psychological History: Anxiety Smoking Status: Never smoker - Past Family History Father History Unknown: Yes Family Medical History: Cancer Additional Family Medical History / Comment(s): PROSTATE CANCER Son(s) Family Medical History: Cancer Additional Family Medical History / Comment(s): TESTICULAR CANCER Mother Family Medical History: Coronary Artery Disease (CAD), Hypertension Sister(s) Family Medical History: Cancer General Exam - General Exam Comments Initial Comments: GENERAL: Patient is well-developed and well-nourished. Patient is nontoxic and well- hydrated and is in mild distress. ENT: Neck is soft and supple. No significant lymphadenopathy is noted. Oropharynx is clear. Moist mucous membranes. Neck has full range of motion without eliciting any pain. EYES: The sclera were anicteric and conjunctiva were pink and moist. Extraocular movements were intact and pupils were equal round and reactive to light. Eyelids were unremarkable. PULMONARY: Unlabored respirations. Good breath sounds bilaterally. No audible rales rhonchi or wheezing was noted. CARDIOVASCULAR: There is a regular rate and rhythm without any murmurs gallops or rubs. ABDOMEN: Mild suprapubic abdominal tenderness no rebound or guarding SKIN: Skin is clear with no lesions or rashes and otherwise unremarkable. NEUROLOGIC: Patient is alert and oriented x3. Cranial nerves II through XII are grossly intact. Motor and sensory are also intact. Normal speech, volume and content. Symmetrical smile. MUSCULOSKELETAL: Normal extremities with adequate strength and full range of motion. No lower extremity swelling or edema. No calf tenderness. LYMPHATICS: No significant lymphadenopathy is noted PSYCHIATRIC: Patient appears to be mildly anxious Limitations: no limitations Course Vital Signs 09/14/18 09/14/18 07:40 08:57 Temperature 96.9 F L Pulse Rate 71 Respiratory 16 16 Rate Blood Pressure 124/72 118/67 O2 Sat by Pulse 98 99 Oximetry Medical Decision Making - Medical Decision Making Computed tomography scan showed no acute abnormalities. Patient did have a Dubose in place when he was in the hospital 2 days ago. Patient has been sleeping comfortably in the emergency department. - Lab Data Result diagrams: 09/14/18 08:10 09/14/18 08:10 Lab Results 09/14/18 09/14/18 09/14/18 Range/Units 08:10 08:10 08:10 WBC 5.6 (3.8-10.6) k/uL RBC 4.09 L (4.30-5.90) m/uL Hgb 12.4 L (13.0-17.5) gm/dL Hct 38.4 L (39.0-53.0) % MCV 93.9 (80.0-100.0) fL MCH 30.3 (25.0-35.0) pg MCHC 32.2 (31.0-37.0) g/dL RDW 14.7 (11.5-15.5) % Plt Count 220 (150-450) k/uL Neutrophils % (Manual) 58 % Lymphocytes % (Manual) 28 % Monocytes % (Manual) 8 % Eosinophils % (Manual) 5 % Basophils % (Manual) 1 % Neutrophils # (Manual) 3.25 (1.3-7.7) k/uL Lymphocytes # (Manual) 1.57 (1.0-4.8) k/uL Monocytes # (Manual) 0.45 (0-1.0) k/uL Eosinophils # (Manual) 0.28 (0-0.7) k/uL Basophils # (Manual) 0.06 (0-0.2) k/uL Nucleated RBCs 0 (0-0) /100 WBC Manual Slide Review Performed Poikilocytosis (manual Present Sodium 139 (137-145) mmol/L Potassium 4.9 (3.5-5.1) mmol/L Chloride 107 (98-107) mmol/L Carbon Dioxide 22 (22-30) mmol/L Anion Gap 10 mmol/L BUN 15 (9-20) mg/dL Creatinine 0.89 (0.66-1.25) mg/dL Est GFR (CKD-EPI)AfAm >90 (>60 ml/min/1.73 sqM) Est GFR (CKD-EPI)NonAf 81 (>60 ml/min/1.73 sqM) Glucose 128 H (74-99) mg/dL Plasma Lactic Acid Ned 1.6 (0.7-2.0) mmol/L Calcium 9.4 (8.4-10.2) mg/dL Total Bilirubin 0.8 (0.2-1.3) mg/dL AST 39 (17-59) U/L ALT 47 (21-72) U/L Alkaline Phosphatase 84 (38-126) U/L Total Protein 6.3 (6.3-8.2) g/dL Albumin 3.5 (3.5-5.0) g/dL Amylase <30 L (30-110) U/L Lipase 51 (23-300) U/L Urine Color Urine Appearance (Clear) Urine pH (5.0-8.0) Ur Specific [place] (1.001-1.035) Urine Protein (Negative) Urine Glucose (UA) (Negative) Urine Ketones (Negative) Urine Blood (Negative) Urine Nitrite (Negative) Urine Bilirubin (Negative) Urine Urobilinogen (<2.0) mg/dL Ur Leukocyte Esterase (Negative) 09/14/18 Range/Units 08:10 WBC (3.8-10.6) k/uL RBC (4.30-5.90) m/uL Hgb (13.0-17.5) gm/dL Hct (39.0-53.0) % MCV (80.0-100.0) fL MCH (25.0-35.0) pg MCHC (31.0-37.0) g/dL RDW (11.5-15.5) % Plt Count (150-450) k/uL Neutrophils % (Manual) % Lymphocytes % (Manual) % Monocytes % (Manual) % Eosinophils % (Manual) % Basophils % (Manual) % Neutrophils # (Manual) (1.3-7.7) k/uL Lymphocytes # (Manual) (1.0-4.8) k/uL Monocytes # (Manual) (0-1.0) k/uL Eosinophils # (Manual) (0-0.7) k/uL Basophils # (Manual) (0-0.2) k/uL Nucleated RBCs (0-0) /100 WBC Manual Slide Review Poikilocytosis (manual Sodium (137-145) mmol/L Potassium (3.5-5.1) mmol/L Chloride (98-107) mmol/L Carbon Dioxide (22-30) mmol/L Anion Gap mmol/L BUN (9-20) mg/dL Creatinine (0.66-1.25) mg/dL Est GFR (CKD-EPI)AfAm (>60 ml/min/1.73 sqM) Est GFR (CKD-EPI)NonAf (>60 ml/min/1.73 sqM) Glucose (74-99) mg/dL Plasma Lactic Acid Ned (0.7-2.0) mmol/L Calcium (8.4-10.2) mg/dL Total Bilirubin (0.2-1.3) mg/dL AST (17-59) U/L ALT (21-72) U/L Alkaline Phosphatase (38-126) U/L Total Protein (6.3-8.2) g/dL Albumin (3.5-5.0) g/dL Amylase (30-110) U/L Lipase (23-300) U/L Urine Color Yellow Urine Appearance Clear (Clear) Urine pH 5.5 (5.0-8.0) Ur Specific [place] 1.030 (1.001-1.035) Urine Protein Negative (Negative) Urine Glucose (UA) Negative (Negative) Urine Ketones 1+ H (Negative) Urine Blood Negative (Negative) Urine Nitrite Negative (Negative) Urine Bilirubin Negative (Negative) Urine Urobilinogen <2.0 (<2.0) mg/dL Ur Leukocyte Esterase Negative (Negative) Disposition Clinical Impression: Abdominal pain Disposition: HOME SELF-CARE Condition: Good Instructions (If sedation given, give patient instructions): Abdominal Pain (ED) Is patient prescribed a controlled substance at d/c from ED?: No Referrals: Lul Anthony DO [Primary Care Provider] - 1-2 days Time of Disposition: 10:35
[2018-09-14 09:11] LABS: Poikilocytosis (M) Present
--- NOTE | 2018-09-14 10:05 | CT ---
EXAMINATION TYPE: CT abdomen pelvis w con DATE OF EXAM: 09/14/2018 COMPARISON: CT abdomen and pelvis August 03, 2017 HISTORY: History of prostate cancer and adhesions with pelvic pain Automated Exposure Control for Dose Reduction was Utilized. CONTRAST: CT scan of the abdomen and pelvis is performed without oral but with IV Contrast, patient injected wi th 100 mL of Isovue 300. FINDINGS: LUNG BASES: Partial visualization of the [place] coronary artery calcification and overlying sternal w ires present from CABG procedure. Dependent atelectasis both bases. LIVER/GB: Gallbladder is surgically absent, bile duct within normal limits given history of cholecyst ectomy. PANCREAS: Mild to moderate generalized fat replaced atrophy of pancreas redemonstrated. SPLEEN: No significant abnormality is seen. ADRENALS: Stable slight thickening to both adrenal glands favoring benign lipid rich hyperplasia. KIDNEYS: Redemonstration of several simple-appearing thin-walled cysts scattered throughout both kidn eys. Symmetric cortical medullary uptake and excretion is seen without hydronephrosis identified bila terally. Air-fluid level in bladder noted, correlate clinically for recent Dubose catheterization othe rwise other etiologies need to be considered. Scattered pelvic phleboliths. BOWEL: No suspicious small or large bowel dilatation. PROSTATE/SEMINAL VESICLES: Heterogeneous enlarged prostate gland consistent with BPH. LYMPH NODES: No greater than 1cm abdominal or pelvic lymph nodes are appreciated. OSSEOUS STRUCTURES: Posterior decompression surgery mid to lower lumbar spine. Multilevel moderate to severe spurring and multilevel disc space narrowing most prominent at L4-L5 level. Moderate narrowin g of both hip joints. OTHER: Moderate calcified plaque of the aorta extends into branch vessels. Numerous coils from but wa ll hernia repair. No recurrent hernia. Persistent right mid abdominal skin thickening and soft tissue density likely reflecting scar tissue near axial image 53. IMPRESSION: 1. No bowel obstruction is present. No recurrent ventral wall hernia is seen. 2. Air-fluid level in bladder, correlate clinically for recent Dubose catheterization otherwise other etiologies such as fistula need to be considered otherwise no suspicious new or acute finding is pres ent from prior CT.
[2018-09-14 10:17] LABS: Appearance,Urine Clear (Clear); Bilirubin,Urine Negative (Negative); Blood,Urine Negative (Negative); Color,Urine Yellow; Glucose,Urine (UA) Negative (Negative); Ketones,Urine 1+ (Negative); Leukocyte Esterase,Urine Negative (Negative); Nitrite,Urine Negative (Negative); PH, Urine 5.5 (5.0-8.0); Protein,Urine Negative (Negative); Urobilinogen,Urine <2.0 mg/dL (<2.0)
[2018-09-14 10:54] VITALS: BP 138/62; PULSE 76; TEMP 97.9
== END 2018-09-14 10:45 | disposition home or self-care (01) ==
LOC: EC 07:38
DX: R10.30 Lower abdominal pain, unspecified (principal); I25.10 Atherosclerotic heart disease of native coronary artery without angina pectoris; E11.9 Type 2 diabetes mellitus without complications; E78.5 Hyperlipidemia, unspecified; I10 Essential (primary) hypertension; F03.90 Unspecified dementia, unspecified severity, without behavioral disturbance, psychotic disturbance, mood disturbance, and anxiety; M19.90 Unspecified osteoarthritis, unspecified site; G47.30 Sleep apnea, unspecified; Z88.0 Allergy status to penicillin; Z88.8 Allergy status to other drugs, medicaments and biological substances; Z91.041 Radiographic dye allergy status; Z91.048 Other nonmedicinal substance allergy status; Z79.4 Long term (current) use of insulin; Z79.899 Other long term (current) drug therapy; Z86.14 Personal history of Methicillin resistant Staphylococcus aureus infection; Z85.46 Personal history of malignant neoplasm of prostate; Z92.3 Personal history of irradiation; Z87.19 Personal history of other diseases of the digestive system; Z90.49 Acquired absence of other specified parts of digestive tract; Z95.1 Presence of aortocoronary bypass graft; Z96.651 Presence of right artificial knee joint; Z96.0 Presence of urogenital implants; Z98.890 Other specified postprocedural states; Z99.89 Dependence on other enabling machines and devices
CPT/HCPCS: 36415; 51798; 74177; 80053; 81003; 82150; 83605; 83690; 85025; 96374; 96375; 99285

== ENCOUNTER 2018-10-27 04:40 | Observation (INO) | payer MEDICARE, BC ==
[2018-10-27] MEDS ORDERED: ASPIRIN 81 MG PO STA (05:16)
[2018-10-27] MEDS ORDERED: HEPARIN SODIUM,PORCINE 5,000 UNIT/ML 1 ML VIAL IV ONE (05:16)
--- NOTE | 2018-10-27 05:21 | ED ---
Chest Pain HPI - General Chief Complaint: Chest Pain Stated Complaint: Chest Pain Time Seen by Provider: 10/27/18 04:49 Source: patient, family Mode of arrival: wheelchair Limitations: no limitations - History of Present Illness Initial Comments: Tucker is a pleasant 78-year-old gentleman with known coronary artery disease who presents to the emergency department this morning for evaluation of chest pain. Patient reports he has known coronary artery disease and is scheduled to undergo repeat cardiac catheterization later next month however he's been experiencing chest pain on a nearly daily basis. Patient reports that 3 days ago he had to take nitro in the morning due to chest pressure and pain and had complete resolution of symptoms after 3 nitro. Again yesterday patient was woken with chest pressure and pain, he took 3 nitro throughout the morning and had resolution of his symptoms. This morning patient again had chest pressure and pain as well as palpitations, he took nitro but continued to feel some chest pressure which time his decided to bring him to the ER for further evaluation. Patient denies any diaphoresis lightheadedness cough or shortness of breath. - Related Data Home Medications Medication Instructions Recorded Confirmed Cholecalciferol [Vitamin D3 (25 1,000 unit PO HS 07/14/15 09/14/18 Mcg = 1000 Iu)] Tamsulosin [Flomax] 0.4 mg PO HS 07/14/17 09/14/18 Pravastatin Sodium [Pravachol] 40 mg PO DAILY 08/03/17 09/14/18 Multivitamins, Thera [Multivitamin 1 tab PO DAILY 07/04/18 09/14/18 (formulary)] Prevagen 1 tab PO DAILY 07/04/18 09/14/18 Artificial Tears-Hypromellose 1 drops BOTH EYES TID 09/11/18 09/14/18 [Artificial Tear Drops] Acetaminophen Tab [Tylenol] 650 mg PO Q6H PRN 09/14/18 09/14/18 Dicyclomine [Bentyl] 10 mg PO TID@0500,1300,2100 09/14/18 09/14/18 INSULIN LISPRO (humaLOG) [humaLOG] See Protocol SQ ACHS 09/14/18 09/14/18 Ipratropium-Albuterol Nebulize 3 ml INHALATION 09/14/18 09/14/18 [Duoneb 0.5 mg-3 mg/3 ml Soln] RT-QID@0500,11,17,23 Sulfamethox-Tmp 800-160Mg [Bactrim 1 tab PO BID 09/14/18 09/14/18 DS 800-160 mg] Previous Rx's Medication Instructions Recorded Aspirin 81 mg PO DAILY chew 09/06/18 Clopidogrel [Plavix] 75 mg PO DAILY tab 09/06/18 Furosemide [Lasix] 20 mg PO DAILY tab 09/06/18 Insulin Glargine [Lantus] 25 unit SQ QAM #0 09/06/18 Lisinopril [Zestril] 5 mg PO BID tab 09/06/18 Metoprolol Tartrate [Lopressor] 25 mg PO BID tab 09/06/18 Spironolactone [Aldactone] 25 mg PO DAILY tab 09/06/18 QUEtiapine [SEROquel] 25 mg PO HS #3 tab 09/13/18 traMADol HCL [Ultram] 50 mg PO Q6H PRN #12 tablet 09/13/18 Allergies Allergy/AdvReac Type Severity Reaction Status Date / Time Iodinated Contrast- Oral and Allergy Rash/Hives Verified 10/27/18 04:49 IV Dye iodine Allergy Rash/Hives Verified 10/27/18 04:49 Penicillins Allergy Swelling Verified 10/27/18 04:49 duloxetine [From Cymbalta] AdvReac PRICKLY Verified 10/27/18 04:49 FEELING IN HEAD povidone-iodine AdvReac Itchy,red Verified 10/27/18 04:49 [From Betadine] skin soap [From Betadine] AdvReac Itchy,red Verified 10/27/18 04:49 skin Surgical Scrub Allergy Unknown Itching, Uncoded 10/27/18 04:49 Red skin Review of Systems ROS Statement: Those systems with pertinent positive or pertinent negative responses have been documented in the HPI. ROS Other: All systems not noted in ROS Statement are negative. EKG Findings - EKG Comments: EKG Findings:: EKG was obtained due to complaint of chest pain, EKG was obtained at 5:02 AM, rate is 67 rhythm is sinus with frequent PVCs, there is a leftward deviation there is a right bundle branch block, HI is 176, QRS is wide at 1624, QTC is prolonged at 513. There are no acute ST elevations or depressions there is no evidence of acute ischemia or infarction. Past Medical History Past Medical History: Coronary Artery Disease (CAD), Cancer, Diabetes Mellitus, Hyperlipidemia, Hypertension, Memory Impairment, Osteoarthritis (OA), Pneumonia, Prostate Disorder, Sleep Apnea/CPAP/BIPAP Additional Past Medical History / Comment(s): Prostate cancer-2011- tx with radiation. HAS ABD ADHESIONS,. abdominal hernia History of Any Multi-Drug Resistant Organisms: MRSA Date of last positivie culture/infection: 08/30/18 MDRO Source:: Sputum Past Surgical History: Appendectomy, Back Surgery, Cholecystectomy, Coronary Bypass/CABG, Heart Catheterization, Hernia Repair, Joint Replacement, Orthopedic Surgery Additional Past Surgical History / Comment(s): ORIF Rt Ankle. ORIF Rt Fibula Surgery. RT Knee Replacement. 2008 Triple CABG. Abdominal adhesions. Fatty tumor from neck. CTR jono. Abdominal surgery with mesh in 2001. Back nerve surgery. Rotator cuff-left shoulder. ING hernia repair w/ mesh. 3 fatty tumors removed 08/15/15, COLONOSCOPY Past Anesthesia/Blood Transfusion Reactions: No Reported Reaction Past Psychological History: Anxiety Smoking Status: Never smoker Past Alcohol Use History: None Reported Past Drug Use History: None Reported - Past Family History Father History Unknown: Yes Family Medical History: Cancer Additional Family Medical History / Comment(s): PROSTATE CANCER Son(s) Family Medical History: Cancer Additional Family Medical History / Comment(s): TESTICULAR CANCER Mother Family Medical History: Coronary Artery Disease (CAD), Hypertension Sister(s) Family Medical History: Cancer General Exam - General Exam Comments Initial Comments: Physical Exam GENERAL: Patient is well-developed and well-nourished. Patient is nontoxic and well- hydrated and is in no distress. HENT: Normocephalic, Atraumatic. EYES: PERRL, EOMI PULMONARY: Unlabored respirations. No audible rales rhonchi or wheezing was noted. CARDIOVASCULAR: There is a regular rate and rhythm without any murmurs gallops or rubs. Pulses are present and equal in bilateral radial Extremities are warm and well perfused ABDOMEN: Soft and nontender with normal bowel sounds. No pulsatile mass SKIN: Skin is clear with no lesions or rashes and otherwise unremarkable. : Deferred NEUROLOGIC: Patient is alert and oriented x3. Moving all extremities spontaneously Hard of hearing MUSCULOSKELETAL: Normal extremities with adequate strength and full range of motion. No lower extremity swelling or edema. No calf tenderness. PSYCHIATRIC: Normal psychiatric evaluation. Limitations: no limitations Course Vital Signs 10/27/18 10/27/18 10/27/18 04:44 05:20 05:58 Temperature 98.4 F Pulse Rate 80 56 L Respiratory 20 20 18 Rate Blood Pressure 117/78 118/83 O2 Sat by Pulse 97 98 Oximetry Chest Pain MDM - MDM The patient was seen and evaluated, history is obtained from the patient and at bedside This is an 78-year-old, known coronary artery disease who is been having chest pain on a daily basis taking nitro daily with usual resolution of his symptoms, this morning he has persistent chest pain and palpitations after taking nitro next line EKG with no skin changes there is frequent PVCs Labs and imaging were ordered EKG was obtained to complain of chest pain, EKG was obtained at 5:02 AM, rate is 67 rhythm is sinus with PVCs, there is a leftward deviation, there is a right bundle branch block, HI is 176, QRS 164, QTC is prolonged at 513. There is no acute ST elevations or depressions is no evidence of acute infarction. Critical Care Time Critical Care Time: Yes Total Critical Care Time: 15 Disposition Clinical Impression: Chest pain Disposition: ADMITTED IP TO THIS HOSP Condition: Stable Is patient prescribed a controlled substance at d/c from ED?: No
[2018-10-27 05:22] LABS: Basophils # (A) 0.1 k/uL (0-0.2); Basophils % (A) 1 %; Eosinophils # (A) 0.2 k/uL (0-0.7); Eosinophils % (A) 2 %; HGB 14.1 gm/dL (13.0-17.5); Lymphocytes # (A) 2.2 k/uL (1.0-4.8); Lymphocytes % (A) 31 %; MCH 30.6 pg (25.0-35.0); MCHC 32.7 g/dL (31.0-37.0); Mean Platelet Volume 9.5; Monocytes # (A) 0.6 k/uL (0-1.0); Monocytes % (A) 8 %; Neutrophils % (A) 55 %; Platelet Count 178 k/uL (150-450); RBC 4.59 m/uL (4.30-5.90); RDW 13.8 % (11.5-15.5); WBC 7.2 k/uL (3.8-10.6)
[2018-10-27] MEDS: NITROGLYCERIN OINT 1 INCH/GM PACKET TOPICAL SCH ×3 (05:27→22:57)
[2018-10-27 05:28] LABS: MCV 93.7 fL (80.0-100.0)
[2018-10-27 05:29] LABS: ALT 26 U/L (21-72); AST 21 U/L (17-59); African American GFR (CKD) >90 (>60 ml/min/1.73 sqM); Alkaline Phosphatase 63 U/L (38-126); Anion Gap 9 mmol/L; Blood Urea Nitrogen 18 mg/dL (9-20); Calcium 9.6 mg/dL (8.4-10.2); Carbon Dioxide 26 mmol/L (22-30); Chloride 104 mmol/L (98-107); Glucose 188 mg/dL (74-99); Magnesium 1.6 mg/dL (1.6-2.3); Potassium 3.9 mmol/L (3.5-5.1); Sodium 139 mmol/L (137-145); Total Bilirubin 0.4 mg/dL (0.2-1.3); Total Protein 6.5 g/dL (6.3-8.2)
--- NOTE | 2018-10-27 05:36 | XR ---
EXAM: XR Chest, 2 Views CLINICAL HISTORY: Its. reason XR Reason: Chest Pain TECHNIQUE: Frontal and lateral views of the chest. COMPARISON: Chest radiography 08/23/18 FINDINGS: Lungs: Unremarkable. No consolidation. Pleural space: Unremarkable. No pneumothorax. Heart: Unremarkable. No cardiomegaly. Mediastinum: Unremarkable. Bones/joints: Intact sternotomy wires. Multilevel spine degenerative changes. IMPRESSION: No acute cardiopulmonary disease.
[2018-10-27 05:45] LABS: INR 0.9 (<1.2); Partial Thromboplastin Time 22.5 sec (22.0-30.0); Prothrombin Time 9.9 sec (9.0-12.0)
[2018-10-27] MEDS: HEPARIN SOD,PORK IN 0.45% NACL 25,000 UNIT in 0.45% NACL 1 250ML.BAG IV SCH (05:45)
[2018-10-27] MEDS ORDERED: ASPIRIN 81 MG PO SCH (09:00)
--- NOTE | 2018-10-27 09:20 | CONS ---
CONSULTATION CHIEF COMPLAINT: Chest pain Mr. Vega is an 78-year-old gentleman with history of coronary artery disease, status post CABG, hypertension, diabetes, dyslipidemia, who presented to hospital complaining of chest pain. The patient has known coronary artery disease and had prior bypass surgery and he underwent cardiac catheterization on August 22 when he was transferred from [facility] with chest pain. He had angioplasty of the distal right coronary artery and temporary pacemaker and balloon pump were done. The patient had a prolonged recuperation from that time and had since been admitted to hospital once in August of 2018 with hypotension. He has not been home for too long and early this morning complained of precordial chest pressure for which he was brought into hospital. He is a poor historian and does not quite remember his symptoms and his son who is at bedside has filled in some of the information. He describes it as precordial chest tightness, mild to moderate intensity at rest, unrelated to exertion and unassociated with diaphoresis. The patient's son tells me that he was supposed to have an outpatient catheterization in the middle of October if the Information is correct by Dr. Pearson. At the time of my evaluation, patient appears chest pain free and is hemodynamically stable. His EKG shows sinus rhythm with right bundle branch block and left axis deviation with PVCs. He has had one set of troponin that is negative. Hemoglobin is normal at 14.1, creatinine is normal at 0.76. The patient's clinical presentation is consistent with unstable angina and is currently on IV heparin, which he is going to continue. Please resume his beta blockers, statins, aspirin, Plavix that he is currently on. PAST MEDICAL HISTORY: Significant for coronary artery disease, status post CABG, status post angioplasty of viejas right coronary arteries, hypertension, diabetes, dyslipidemia. MEDICATIONS: Medications at home included Lopressor 12.5 b.i.d., pravastatin 40 q. daily, insulin, Bentyl, Plavix, aspirin. ALLERGIES: He is allergies to IV DYE, PENICILLIN, CYMBALTA, BETADINE. FAMILY HISTORY: Negative for premature coronary artery disease. SOCIAL HISTORY: Negative for smoking, EtOH abuse or drug abuse. REVIEW OF SYSTEMS: HEENT is significant for hearing deficit. CARDIAC: As described above. RESPIRATORY: As described above. GI: Negative. GENITOURINARY: Negative. PSYCHOSOCIAL: Negative. ENDOCRINE: Negative. HEMATOLOGICAL: Negative. DERM: Negative. CONSTITUTIONAL: Negative. ONCOLOGICAL: Negative. MUSCULOSKELETAL: Significant for arthritis. Rest of the system review is not relevant. PHYSICAL EXAMINATION: On exam, patient is afebrile. Heart rate is 60 beats per minute. Blood pressure is 140/90, respiratory rate 18. Chest exam reveals good air entry bilaterally. Heart exam reveals first and second heart sounds. Systolic murmur at the left lower sternal border. Abdomen is soft. Examination of extremities did not reveal any edema. Peripheral pulses are palpable. LABS: Labs show a hemoglobin of 14.1, potassium is 3.9, creatinine is 0.76. Troponin is negative. Magnesium is 1.6. ASSESSMENT: 1. Unstable angina. 2. Coronary artery disease, status post coronary artery bypass grafting. 3. Hypertension. 4. Diabetes. 5. Dyslipidemia. PLAN: I will continue the patient on IV heparin. Please resume his aspirin, Plavix and beta blockers. The patient needs to have cardiac catheterization in the middle of October if we can we may get it done on this admission. If not if patient becomes symptom free and is doing well, we may discharge him home and bring him back at a later day. MMODL / IJN: [id number] /
[2018-10-27] MEDS ORDERED: traMADol 50 MG TAB PO PRN (09:53)
[2018-10-27] MEDS ORDERED: ACETAMINOPHEN TAB 325 MG TAB PO PRN (09:53)
[2018-10-27 10:45] VITALS: BMI 29.4
[2018-10-27] MEDS: MULTIVITAMINS, THERA 1 EACH TAB PO SCH (11:12)
[2018-10-27] MEDS: ARTIFICIAL TEARS-HYPROMELLOSE DROPS 15 ML BTL BOTH EYES SCH ×3 (11:12→20:04)
[2018-10-27] MEDS: SENNOSIDES-DOCUSATE SODIUM 1 EACH TAB PO SCH ×2 (11:12→20:04)
[2018-10-27] MEDS: METOPROLOL TARTRATE 12.5 MG TAB PO SCH (11:12)
[2018-10-27] MEDS: CLOPIDOGREL 75 MG TAB PO SCH (11:13)
[2018-10-27] MEDS: DICYCLOMINE 10 MG CAP PO SCH ×3 (11:13→20:04)
[2018-10-27] MEDS: INSULIN DETEMIR (LEVEMIR) 100 UNIT/ML SYR SQ SCH (11:14)
[2018-10-27 11:19] LABS: Glucose,Whole Blood 160 mg/dL (75-99)
--- NOTE | 2018-10-27 11:26 | ECHOF ---
Referral Reason:chest pain MEASUREMENTS -------- HEIGHT: 170.2 cm WEIGHT: 85.3 kg BP: 147/92 RVIDd: 2.4 cm (< 3.3) IVSd: 1.2 cm (0.6 - 1.1) LVIDd: 4.9 cm (3.9 - 5.3) LVPWd: 1.3 cm (0.6 - 1.1) IVSs: 1.7 cm LVIDs: 4.3 cm LVPWs: 1.3 cm LA Diam: 3.3 cm (2.7 - 3.8) LAESV Index (A-L): 22.13 ml/m Ao Diam: 3.2 cm (2.0 - 3.7) AV Cusp: 2.1 cm (1.5 - 2.6) LA Diam: 3.7 cm (2.7 - 3.8) MV EXCURSION: 16.659 mm (> 18.000) MV EF SLOPE: 42 mm/s (70 - 150) EPSS: 1.1 cm MV E Crispin: 0.32 m/s MV DecT: 153 ms MV A Crispin: 0.83 m/s MV E/A Ratio: 0.38 AR PHT: 495 ms RAP: 5.00 mmHg RVSP: 11.16 mmHg FINDINGS -------- Undetermined rhythm. This was a technically good study. The left ventricular size is normal. There is borderline concentric left ventricular hypertrophy. Overall left ventricular systolic function is moderately impaired with, an EF between 35 - 40 %. I nferior Hypokinesis Septal Hypokinesis The right ventricle is normal in size. The left atrial size is normal. Normal LA size by volume 22+/-6 ml/m2. The right atrial size is normal. There is mild aortic valve sclerosis. Trace to mild aortic regurgitation. Mild mitral annular calcification present. Mild mitral regurgitation is present. Mild tricuspid regurgitation present. There is no evidence of pulmonary hypertension. The right v entricular systolic pressure, as measured by Doppler, is 11.16mmHg. There is no pulmonic regurgitation present. The aortic root size is normal. There is no pericardial effusion. CONCLUSIONS -------- 1. Undetermined rhythm. 2. This was a technically good study. 3. The left ventricular size is normal. 4. There is borderline concentric left ventricular hypertrophy. 5. Overall left ventricular systolic function is moderately impaired with, an EF between 35 - 40 %. 6. Inferior Hypokinesis 7. Septal Hypokinesis 8. The right ventricle is normal in size. 9. The left atrial size is normal. 10. Normal LA size by volume 22+/-6 ml/m2. 11. The right atrial size is normal. 12. There is mild aortic valve sclerosis. 13. Trace to mild aortic regurgitation. 14. Mild mitral annular calcification present. 15. Mild mitral regurgitation is present. 16. Mild tricuspid regurgitation present. 17. There is no evidence of pulmonary hypertension. 18. The right ventricular systolic pressure, as measured by Doppler, is 11.16mmHg. 19. There is no pulmonic regurgitation present. 20. The aortic root size is normal. 21. There is no pericardial effusion. PASTING MACHINE OFFBEARER: Karla Kessler RDCS
[2018-10-27] MEDS: HYDROcodone/APAP 7.5-325MG 1 EACH TAB PO PRN (16:06)
[2018-10-27 16:34] LABS: Glucose,Whole Blood 135 mg/dL (75-99)
[2018-10-27] MEDS: INSULIN ASPART (NovoLOG) 100 UNIT/ML VIAL SQ SCH ×3 (16:34→20:03)
[2018-10-27 19:57] LABS: Glucose,Whole Blood 180 mg/dL (75-99)
[2018-10-27] MEDS ORDERED: TAMSULOSIN 0.4 MG CAP.ER.24H PO SCH (21:00)
[2018-10-27] MEDS ORDERED: PRAVASTATIN SODIUM 40 MG TAB PO SCH (21:00)
--- NOTE | 2018-10-27 22:01 | P.HPIM ---
History of Present Illness H&P Date: 10/27/18 Chief Complaint: Chest pain History of presenting complaint: This is 6-year-old patient of Dr. Dean Evangelista. Chronic stable medical conditions include diabetes, hyperlipidemia, hypertension, osteoarthritis, obstructive sleep apnea. Patient's previously had coronary bypass. Patient was admitted and discharged from the hospital on September 07 from the hospital. Was then admitted for acute non-Q-wave myocardial infarction. Had a cardiac catheterization was found a significant coronary artery disease. Patient had a stent to the RCA emergently. Also PDA branch of RCA as well as stenting to the saphenous vein graft to the marginal was performed. Patient also required i ntra-aortic balloon pump and a temporary pacemaker. Subsequently patient had a tumultuous course and admitted to ICU. Patient was on the ventilator. Patient also was then delirious. Patient subsequently was transferred to inpatient rehab. Patient's had chronic abdominal pain on and off. Has been told that he is got strictures. Patient has been at home. Able to get around without cane. Patient not a good historian rather forgetful. He presented to the ER. The episodes of chest pain. Normally relief with the nitroglycerin. Patient is due for a repeat cardiac catheterization in middle of December. Patient better with unstable angina. Patient is currently not present. And patient does not remember about his chest pain. He continues to get his chronic intermittent abdominal pain. Review of systems: GEN.: Tired, appetite fair EYES: None HEENT: None NECK: None RESPIRATORY: Occasionally short of breath CARDIOVASCULAR: As above GASTROINTESTINAL: Chronic abdominal pain GENITOURINARY: None MUSCULOSKELETAL: Some pain in the joints LYMPHATICS: None HEMATOLOGICAL: None PSYCHIATRY: Forgetful NEUROLOGICAL: Uses a cane Past medical history: Coronary artery disease with coronary stent, diabetes mellitus type 2, hyperlipidemia, primary osteoarthritis, obstructive sleep apnea, chronic bladder outflow obstruction,. Social history: Does not smoke or drink alcohol. . At home Family history: Prostate cancer Physical examination: VITAL SIGNS: 98.5, 68, 18, 146/85, 97% 2 L GENERAL: BMI 29.4, laying in bed, not in distress. EYES: Pupils equal. Conjunctiva normal. HEENT: External appearance of nose and ears normal, oral cavity grossly normal. NECK: JVD not raised; masses not palpable. HEART: First and second heart sounds are normal; no edema. LUNGS: Respiratory rate normal; decreased breath sounds. ABDOMEN: Soft, nontender, liver spleen not palpable, no masses palpable. PSYCH: Able to answer simple questions though rather forgetful. Cannot remember much about his chest pain. NEUROLOGICAL: Cranial nerves grossly intact; no facial asymmetry, power and sensation grossly intact. LYMPHATICS: No lymph nodes palpable in the axilla and neck INVESTIGATIONS, reviewed in the clinical context White count 7.2 hemoglobin 14.1 platelets 178 potassium 3.9 creatinine 0.76 Troponin 0.022, 0.0-2 EKG tracing personally reviewed by me shows right bundle branch block, with PVCs Chest x-ray film personally reviewed by me shows no obvious infiltrates Assessment: -Unstable angina and the patient on coronary artery disease -Acute non-Q-wave myocardial infarction, on 08/23/2018 -Coronary artery disease with severe significant disease to the left main and right coronary artery. With coronary intervention -Diabetes mellitus type 2 chronically on insulin -Hyperlipidemia -Primary osteoarthritis -obstructive. 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 Was followed by Dr. Arroyo -Positive troponin, probably from hemodynamic mismatch not felt to be acute co ronary syndrome -Mild cognitive impairment -CODE STATUS DO NOT RESUSCITATE from prior admissions Plan: Home medications resumed. Patient is put on IV heparin. Cardiology was consulted. They're contemplating a cardiac catheterization. Care was discussed with the patient. Past Medical History Past Medical History: Coronary Artery Disease (CAD), Cancer, Diabetes Mellitus, GERD/Reflux, Hyperlipidemia, Hypertension, Memory Impairment, Osteoarthritis (OA), Pneumonia, Prostate Disorder, Sleep Apnea/CPAP/BIPAP Additional Past Medical History / Comment(s): [place] 08/23/[address]/cardiogenic shock/balloon pump/CHB with temporary pacer/thrombocytopenia. Other Hx: Chronic abdominal pain, abdominal adhesions/strictures, div erticulosis, IBS, benign colon polyp, prostate cancer with radiation, BPH, outflow obstruction, NE-unable to tolerate mask, IDDM type II, History of Any Multi-Drug Resistant Organisms: MRSA Date of last positivie culture/infection: 08/30/18 MDRO Source:: Sputum Past Surgical History: Appendectomy, Back Surgery, Cholecystectomy, Coronary Bypass/CABG, Heart Catheterization, Heart Catheterization With Stent, Hernia Repair, Joint Replacement, Orthopedic Surgery Additional Past Surgical History / Comment(s): 08/23/18 PCI with stent to RCA, cardiac caths, 2008 CABG 3 vessels, inguinal and incisional hernia repairs, triple incisional hernia repair/lysis of adhesions, fatty tumors removed posterior neck, ORIF R ankle/R tib fib, total L knee arthroplasty, L rotator cuff repair, bilateral carpal tunne releases, colonoscopies/bening polyp, EGDs. Past Anesthesia/Blood Transfusion Reactions: No Reported Reaction Date of Last Stent Placement:: 08/23/18 Smoking Status: Never smoker - Past Family History Father History Unknown: Yes Family Medical History: Cancer Additional Family Medical History / Comment(s): PROSTATE CANCER Son(s) Family Medical History: Cancer Additional Family Medical History / Comment(s): TESTICULAR CANCER Mother Family Medical History: Coronary Artery Disease (CAD), Hypertension Sister(s) Family Medical History: Cancer Medications and Allergies Home Medications Medication Instructions Recorded Confirmed Type Cholecalciferol [Vitamin D3 (25 1,000 unit PO HS 07/14/15 10/27/18 History Mcg = 1000 Iu)] Tamsulosin [Flomax] 0.4 mg PO HS 07/14/17 10/27/18 History Pravastatin Sodium [Pravachol] 40 mg PO HS 08/03/17 10/27/18 History Multivitamins, Thera [Multivitamin 1 tab PO DAILY 07/04/18 10/27/18 History (formulary)] Aspirin 81 mg PO DAILY chew 09/06/18 10/27/18 Rx Clopidogrel [Plavix] 75 mg PO DAILY tab 09/06/18 10/27/18 Rx Insulin Glargine [Lantus] 25 unit SQ QAM #0 09/06/18 10/27/18 Rx Artificial Tears-Hypromellose 1 drops BOTH EYES TID 09/11/18 10/27/18 History [Artificial Tear Drops] traMADol HCL [Ultram] 50 mg PO Q6H PRN #12 tablet 09/13/18 10/27/18 Rx Acetaminophen Tab [Tylenol] 650 mg PO Q6H PRN 09/14/18 10/27/18 History Dicyclomine [Bentyl] 10 mg PO TID 09/14/18 10/27/18 History INSULIN LISPRO (humaLOG) [humaLOG] See Protocol SQ ACHS 09/14/18 10/27/18 History Hydrocodone/Acetaminophen [[place] 1 tab PO BID PRN 10/27/18 10/27/18 History 7.5-325] Metoprolol Tartrate [Lopressor] 12.5 mg PO BID 10/27/18 10/27/18 History Sennosides-Docusate Sodium 1 tab PO BID 10/27/18 10/27/18 History [Senokot-S] Allergies Allergy/AdvReac Type Severity Reaction Status Date / Time Iodinated Contrast- Oral and Allergy Rash/Hives Verified 10/27/18 06:59 IV Dye iodine Allergy Rash/Hives Verified 10/27/18 06:59 Penicillins Allergy Swelling Verified 10/27/18 06:59 duloxetine [From Cymbalta] AdvReac PRICKLY Verified 10/27/18 06:59 FEELING IN HEAD povidone-iodine AdvReac Itchy,red Verified 10/27/18 06:59 [From Betadine] skin soap [From Betadine] AdvReac Itchy,red Verified 10/27/18 06:59 skin Surgical Scrub AdvReac Unknown Itching, Uncoded 10/27/18 06:59 Red skin Physical Exam Vitals: Vital Signs Temp Pulse Pulse Resp BP BP Pulse Ox 10/27/18 20:00 18 10/27/18 18:25 97.8 F 97 17 138/74 97 10/27/18 17:38 98.1 F 60 18 135/89 98 10/27/18 15:11 65 18 99 10/27/18 11:39 69 16 161/89 98 10/27/18 11:29 67 18 163/96 98 10/27/18 07:35 61 18 147/92 97 10/27/18 06:59 98.5 F 68 18 146/85 97 10/27/18 05:58 56 L 18 118/83 98 10/27/18 05:20 20 10/27/18 04:44 98.4 F 80 20 117/78 97 Intake and Output 10/27/18 10/27/18 10/27/18 06:59 14:59 22:59 Other: Weight 85.275 kg Results CBC & Chem 7: 10/27/18 05:09 10/27/18 05:09 Labs: Abnormal Lab Results - Last 24 Hours (Table) 0810/27/18 10/27/18 Range/Units 05:09 11:18 11:28 APTT 52.5 H (22.0-30.0) sec Glucose 188 H (74-99) mg/dL POC Glucose (mg/dL) 160 H (75-99) mg/dL 10/27/18 10/27/18 10/27/18 Range/Units 16:33 18:20 19:49 APTT 47.2 H (22.0-30.0) sec Glucose (74-99) mg/dL POC Glucose (mg/dL) 135 H 180 H (75-99) mg/dL Thrombosis Risk Factor Assmnt - Choose All That Apply Any of the Below Risk Factors Present?: Yes Other Risk Factors: Yes Each Risk Factor Represents 2 Points: Malignancy Each Risk Factor Represents 3 Points: Age 75 years or older Other congenital or acquired thrombophilia - If yes, enter type in comment: No Thrombosis Risk Factor Assessment Total Risk Factor Score: 5 Thrombosis Risk Factor Assessment Level: High Risk
[2018-10-28] MEDS: HYDROcodone/APAP 7.5-325MG 1 EACH TAB PO PRN ×2 (01:32→09:00)
[2018-10-28] MEDS: HEPARIN SOD,PORK IN 0.45% NACL 25,000 UNIT in 0.45% NACL 1 250ML.BAG IV SCH (01:33)
[2018-10-28] MEDS: NITROGLYCERIN OINT 1 INCH/GM PACKET TOPICAL SCH (02:21)
[2018-10-28 06:49] LABS: Mean Platelet Volume 9.8; Platelet Count 184 k/uL (150-450)
[2018-10-28 07:06] LABS: Glucose,Whole Blood 115 mg/dL (75-99)
[2018-10-28 07:16] LABS: Cholesterol 163 mg/dL (<200); HDL Cholesterol 45 mg/dL (40-60); LDL Cholesterol,Calculated 99 mg/dL (0-99); Triglycerides 94 mg/dL (<150)
[2018-10-28] MEDS: ARTIFICIAL TEARS-HYPROMELLOSE DROPS 15 ML BTL BOTH EYES SCH (08:13)
[2018-10-28] MEDS: MULTIVITAMINS, THERA 1 EACH TAB PO SCH (08:13)
[2018-10-28] MEDS: SENNOSIDES-DOCUSATE SODIUM 1 EACH TAB PO SCH (08:13)
[2018-10-28] MEDS: INSULIN DETEMIR (LEVEMIR) 100 UNIT/ML SYR SQ SCH (08:14)
[2018-10-28] MEDS: METOPROLOL TARTRATE 12.5 MG TAB PO SCH (08:14)
[2018-10-28] MEDS: CLOPIDOGREL 75 MG TAB PO SCH (08:14)
[2018-10-28] MEDS: INSULIN ASPART (NovoLOG) 100 UNIT/ML VIAL SQ SCH (08:57)
[2018-10-28] MEDS ORDERED: ASPIRIN 81 MG PO SCH (09:00)
[2018-10-28] MEDS ORDERED: ASPIRIN 325 MG TAB PO SCH (09:00)
[2018-10-28] MEDS ORDERED: LOSARTAN 50 MG TAB PO SCH (09:00)
[2018-10-28] MEDS: DICYCLOMINE 10 MG CAP PO SCH (10:21)
[2018-10-28 11:36] LABS: Glucose,Whole Blood 208 mg/dL (75-99)
[2018-10-28] MEDS ORDERED: ISOSORBIDE MONONITRATE ER 30 MG TAB.ER.24H PO STA (11:44)
[2018-10-28 12:07] VITALS: BP 121/59; PULSE 70; RESP 18; TEMP 98.8
--- NOTE | 2018-10-28 12:09 | PN ---
PROGRESS NOTE Mr. Vega is an 78-year-old gentleman, history of known CAD, prior bypass surgery and PCI. In July also of this year he was hospitalized with a prolonged hospitalization, presented with an VT, underwent stenting of multiple vessels performed by Dr. Pearson and myself. He came into the hospital with chest pain. Quality of pain seems atypical. There is a reversible defect on the stress test, but the defect is not large and he was advised to have a cardiac cath if symptoms persisted sometime in mid October by Dr. Moreon his PCP. He comes in with chest pain. Pain is atypical. No recurrence. Troponins are unremarkable. He is asymptomatic. Patient has severe dementia and memory impairment. Vital signs are stable. Blood pressure is slightly elevated. There is JVD of 1 cm. No carotid bruit, S1-S2 heard normally, short systolic murmur is audible. Lungs are clear. Abdomen and lower extremity exam is unchanged. I will increase activity for this patient. Add losartan 50 mg daily and he can be discharged with the understanding he should see Dr. Moreno in one week. Discussed my thoughts in detail with the patient. Thank you very much for the consult. MMODL / IJN: [id number] /
--- NOTE | 2018-10-28 21:15 | P.DS ---
Providers Date of admission: 10/27/18 05:16 Expected date of discharge: 10/28/18 Attending physician: Amos Yañez Consults: 10/27/18 05:16 Consult Physician Urgent Consulting Provider: [facility] Consult Reason/Comments: chest pain - known CAD - taking 3 nitro daily Do you want consulting provider notified?: Yes, Notify in am Primary care physician: Dean Evangelista [facility] Course: Hospital course: This is 6-year-old patient of Dr. Dean Evangelista. Chronic stable medical conditions include diabetes, hyperlipidemia, hypertension, osteoarthritis, obstructive sleep apnea. Patient's previously had coronary bypass. Patient was admitted and discharged from the hospital on September 07 from the hospital. Was then admitted for acute non-Q-wave myocardial infarction. Had a cardiac catheterization was found a significant coronary artery disease. Patient had a stent to the RCA emergently. Also PDA branch of RCA as well as stenting to the saphenous vein graft to the marginal was performed. Patient also required intra-aortic balloon pump and a temporary pacemaker. Subsequently patient had a tumultuous course and admitted to ICU. Patient was on the ventilator. Patient also was then delirious. Patient subsequently was transferred to inpatient rehab. Patient's had chronic abdominal pain on and off. Has been told that he is got strictures. Patient has been at home. Able to get around without cane. Patient not a good historian rather forgetful. He presented to the ER. The episodes of chest pain. Normally relief with the nitroglycerin. Patient is due for a repeat cardiac catheterization in middle of December. Patient better with unstable angina. Patient is currently not present. And patient does not remember about his chest pain. He continues to get his chronic intermittent abdominal pain. Patient was admitted with unstable angina. Patient seen by Dr. JAYLON Taylor this morning. Spoke to the . THE patient to be discharged. Patient is return to see Dr. Cabrera for a scheduled cardiac catheterization. No chest pain today. I added long-acting nitrates. had a lot of questions about patient's angina. Answer the same. Patient and the were told to return to the hospital if symptoms were to persist again. Discussion and discharge planning more than 35 minutes. Physical examination: VITAL SIGNS: 98.9, 52, 16, 140/79, 96% room air GENERAL: BMI 29.4, laying in bed comfortable EYES: Pupils equal. Conjunctiva normal. HEENT: External appearance of nose and ears normal, oral cavity grossly normal. NECK: JVD not raised; masses not palpable. HEART: First and second heart sounds are normal; no edema. LUNGS: Respiratory rate normal; decreased breath sounds. ABDOMEN: Soft, nontender, liver spleen not palpable, no masses palpable. PSYCH: Able to answer simple questions though rather forgetful. Cannot remember much about his chest pain. INVESTIGATIONS, reviewed in the clinical context White count 7.2 hemoglobin 14.1 platelets 178 potassium 3.9 creatinine 0.76 Troponin 0.022, 0.0-2 EKG tracing personally reviewed by me shows right bundle branch block, with PVCs Chest x-ray film personally reviewed by me shows no obvious infiltrates Assessment: -Unstable angina in a patient with coronary artery disease -Acute non-Q-wave myocardial infarction, on 08/23/2018 -Coronary artery disease with severe significant disease to the left main and right coronary artery. With coronary intervention -Diabetes mellitus type 2 chronically on insulin -Hyperlipidemia -Primary osteoarthritis -obstructive. 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 Was followed by Dr. Arroyo -Positive troponin, probably from hemodynamic mismatch not felt to be acute coronary syndrome -Mild cognitive impairment -CODE STATUS DO NOT RESUSCITATE from prior admissions Disposition: Home Patient Condition at Discharge: Stable Plan - Discharge Summary Discharge Rx Participant: No New Discharge Prescriptions: New Losartan [Cozaar] 50 mg PO HS #30 tab Isosorbide Mononitrate ER [Imdur] 30 mg PO DAILY #30 tab Continue Cholecalciferol [Vitamin D3 (25 Mcg = 1000 Iu)] 1,000 unit PO HS Tamsulosin [Flomax] 0.4 mg PO HS Pravastatin Sodium [Pravachol] 40 mg PO HS Multivitamins, Thera [Multivitamin (formulary)] 1 tab PO DAILY Aspirin 81 mg PO DAILY chew Clopidogrel [Plavix] 75 mg PO DAILY tab Insulin Glargine [Lantus] 25 unit SQ QAM #0 Artificial Tears-Hypromellose [Artificial Tear Drops] 1 drops BOTH EYES TID traMADol HCL [Ultram] 50 mg PO Q6H PRN #12 tablet PRN Reason: Pain INSULIN LISPRO (humaLOG) [humaLOG] See Protocol SQ ACHS Dicyclomine [Bentyl] 10 mg PO TID Acetaminophen Tab [Tylenol] 650 mg PO Q6H PRN PRN Reason: Pain Hydrocodone/Acetaminophen [[place] 7.5-325] 1 tab PO BID PRN PRN Reason: Pain Metoprolol Tartrate [Lopressor] 12.5 mg PO BID Sennosides-Docusate Sodium [Senokot-S] 1 tab PO BID Discharge Medication List Cholecalciferol [Vitamin D3 (25 Mcg = 1000 Iu)] 1,000 unit PO HS 07/14/15 [History] Tamsulosin [Flomax] 0.4 mg PO HS 07/14/17 [History] Pravastatin Sodium [Pravachol] 40 mg PO HS 08/03/17 [History] Multivitamins, Thera [Multivitamin (formulary)] 1 tab PO DAILY 07/04/18 [History] Aspirin 81 mg PO DAILY chew 09/06/18 [Rx] Clopidogrel [Plavix] 75 mg PO DAILY tab 09/06/18 [Rx] Insulin Glargine [Lantus] 25 unit SQ QAM #0 09/06/18 [Rx] Artificial Tears-Hypromellose [Artificial Tear Drops] 1 drops BOTH EYES TID 09/11/18 [History] traMADol HCL [Ultram] 50 mg PO Q6H PRN #12 tablet 09/13/18 [Rx] Acetaminophen Tab [Tylenol] 650 mg PO Q6H PRN 09/14/18 [History] Dicyclomine [Bentyl] 10 mg PO TID 09/14/18 [History] INSULIN LISPRO (humaLOG) [humaLOG] See Protocol SQ ACHS 09/14/18 [History] Hydrocodone/Acetaminophen [[place] 7.5-325] 1 tab PO BID PRN 10/27/18 [History] Metoprolol Tartrate [Lopressor] 12.5 mg PO BID 10/27/18 [History] Sennosides-Docusate Sodium [Senokot-S] 1 tab PO BID 10/27/18 [History] Isosorbide Mononitrate ER [Imdur] 30 mg PO DAILY #30 tab 10/28/18 [Rx] Losartan [Cozaar] 50 mg PO HS #30 tab 10/28/18 [Rx] Follow up Appointment(s)/Referral(s): Dean Evangelista MD [Primary Care Provider] - 3 Days Erlinda Moreno MD [STAFF PHYSICIAN] - 11/06/18 3:00 pm (Office may call and reschedule per Crystal at [facility].) Discharge Disposition: HOME SELF-CARE
== END 2018-10-28 12:37 | disposition home or self-care (01) ==
LOC: EC 04:40 → 1SOBS 05:16 → 3SCARD 15:34 → 1SOBS 17:26
PROVIDERS: ADMIT Hospitalist; ATTEND Hospitalist
DX: I25.110 Atherosclerotic heart disease of native coronary artery with unstable angina pectoris (principal); I25.2 Old myocardial infarction; E11.9 Type 2 diabetes mellitus without complications; E78.5 Hyperlipidemia, unspecified; M19.91 Primary osteoarthritis, unspecified site; G47.33 Obstructive sleep apnea (adult) (pediatric); Z66 Do not resuscitate; N32.0 Bladder-neck obstruction; G89.29 Other chronic pain; R10.9 Unspecified abdominal pain; F03.90 Unspecified dementia, unspecified severity, without behavioral disturbance, psychotic disturbance, mood disturbance, and anxiety; R77.8 Other specified abnormalities of plasma proteins; I10 Essential (primary) hypertension; K58.9 Irritable bowel syndrome, unspecified; N40.0 Benign prostatic hyperplasia without lower urinary tract symptoms; K21.9 Gastro-esophageal reflux disease without esophagitis; F41.9 Anxiety disorder, unspecified; I45.10 Unspecified right bundle-branch block; Z99.89 Dependence on other enabling machines and devices; Z95.1 Presence of aortocoronary bypass graft; Z95.5 Presence of coronary angioplasty implant and graft; Z87.01 Personal history of pneumonia (recurrent); Z86.010 Personal history of colon polyps; Z85.46 Personal history of malignant neoplasm of prostate; Z92.3 Personal history of irradiation; Z86.14 Personal history of Methicillin resistant Staphylococcus aureus infection; Z90.49 Acquired absence of other specified parts of digestive tract; Z91.041 Radiographic dye allergy status; Z88.0 Allergy status to penicillin; Z88.8 Allergy status to other drugs, medicaments and biological substances; Z91.048 Other nonmedicinal substance allergy status; Z79.899 Other long term (current) drug therapy; Z79.82 Long term (current) use of aspirin; Z79.4 Long term (current) use of insulin; Z79.02 Long term (current) use of antithrombotics/antiplatelets; Z79.891 Long term (current) use of opiate analgesic; Z96.653 Presence of artificial knee joint, bilateral; Z82.49 Family history of ischemic heart disease and other diseases of the circulatory system; Z80.43 Family history of malignant neoplasm of testis; Z80.42 Family history of malignant neoplasm of prostate
CPT/HCPCS: 96366 ×2; 96376; 96361; 96365; 99285; 36415; 93005; 93306; 83880; 80061; 80053; 83735; 84484; 85025; 85049; 85610; 85730; 71046; G0378 ×3; J1644 ×3

== ENCOUNTER 2018-10-28 22:35 | Inpatient (IN) | payer MEDICARE, BC ==
--- NOTE | 2018-10-28 22:47 | ED ---
Chest Pain HPI - General Chief Complaint: Chest Pain Stated Complaint: Chest Pain Source: patient Mode of arrival: wheelchair Limitations: no limitations - History of Present Illness Initial Comments: Area is a pleasant 78-year-old gentleman with known coronary artery disease with a CABG in the past and plan for a cardiac catheterization later this month. Patient was seen and evaluated in the emergency department yesterday at which time he was experiencing chest pain which relieved with nitro. Patient was evaluated by cardiology he did have an echocardiogram which revealed worsening hypokinesis, there is discussion of possible cardiac catheterization but because the patient was asymptomatic throughout his hospital stay decision was made to discharge him home. Patient reports he went home and napped through the afternoon however when he got this evening to walk to the restroom he fell pressure and heaviness in his chest. Again he took 3 nitro which improved this pressure and heaviness and he decided come back to the hospital for reevaluation. Upon arrival in the hospital patient is mildly hypotensive likely secondary to the nitro and his chest pain has improved. - Related Data Home Medications Medication Instructions Recorded Confirmed Cholecalciferol [Vitamin D3 (25 1,000 unit PO HS 07/14/15 10/28/18 Mcg = 1000 Iu)] Tamsulosin [Flomax] 0.4 mg PO HS 07/14/17 10/28/18 Pravastatin Sodium [Pravachol] 40 mg PO HS 08/03/17 10/28/18 Multivitamins, Thera [Multivitamin 1 tab PO DAILY 07/04/18 10/28/18 (formulary)] Artificial Tears-Hypromellose 1 drops BOTH EYES TID 09/11/18 10/28/18 [Artificial Tear Drops] Acetaminophen Tab [Tylenol] 650 mg PO Q6H PRN 09/14/18 10/28/18 Dicyclomine [Bentyl] 10 mg PO TID 09/14/18 10/28/18 INSULIN LISPRO (humaLOG) [humaLOG] See Protocol SQ ACHS 09/14/18 10/28/18 Hydrocodone/Acetaminophen [Perry 1 tab PO BID PRN 10/27/18 10/28/18 7.5-325] Metoprolol Tartrate [Lopressor] 12.5 mg PO BID 10/27/18 10/28/18 Sennosides-Docusate Sodium 1 tab PO BID 10/27/18 10/28/18 [Senokot-S] Previous Rx's Medication Instructions Recorded Aspirin 81 mg PO DAILY chew 09/06/18 Clopidogrel [Plavix] 75 mg PO DAILY tab 09/06/18 Insulin Glargine [Lantus] 25 unit SQ QAM #0 09/06/18 traMADol HCL [Ultram] 50 mg PO Q6H PRN #12 tablet 09/13/18 Isosorbide Mononitrate ER [Imdur] 30 mg PO DAILY #30 tab 10/28/18 Losartan [Cozaar] 50 mg PO HS #30 tab 10/28/18 Allergies Allergy/AdvReac Type Severity Reaction Status Date / Time Iodinated Contrast- Oral and Allergy Rash/Hives Verified 10/28/18 23:04 IV Dye iodine Allergy Rash/Hives Verified 10/28/18 23:04 Penicillins Allergy Swelling Verified 10/28/18 23:04 duloxetine [From Cymbalta] AdvReac PRICKLY Verified 10/28/18 23:04 FEELING IN HEAD povidone-iodine AdvReac Itchy,red Verified 10/28/18 23:04 [From Betadine] skin soap [From Betadine] AdvReac Itchy,red Verified 10/28/18 23:04 skin Surgical Scrub AdvReac Unknown Itching, Uncoded 10/28/18 23:04 Red skin Review of Systems ROS Statement: Those systems with pertinent positive or pertinent negative responses have been documented in the HPI. ROS Other: All systems not noted in ROS Statement are negative. EKG Findings - EKG Comments: EKG Findings:: EKG was obtained due to complaint of chest pain, EKG obtained at 2253, rate is 69 rhythm is sinus with frequent PVCs and a bifascicular block. When compared to EKG from yesterday there is no significant change in morphology. Past Medical History Past Medical History: Coronary Artery Disease (CAD), Cancer, Diabetes Mellitus, GERD/Reflux, Hyperlipidemia, Hypertension, Memory Impairment, Osteoarthritis (OA ), Pneumonia, Prostate Disorder, Sleep Apnea/CPAP/BIPAP Additional Past Medical History / Comment(s): [place] 08/23/[address]/cardiogenic shock/balloon pump/CHB with temporary pacer/thrombocytopenia. 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, IDDM type II, History of Any Multi-Drug Resistant Organisms: MRSA Date of last positivie culture/infection: 08/30/18 MDRO Source:: Sputum Past Surgical History: Appendectomy, Back Surgery, Cholecystectomy, Coronary Bypass/CABG, Heart Catheterization, Heart Catheterization With Stent, Hernia Repair, Joint Replacement, Orthopedic Surgery Additional Past Surgical History / Comment(s): 08/23/18 PCI with stent to RCA, cardiac caths, 2008 CABG 3 vessels, inguinal and incisional hernia repairs, triple incisional hernia repair/lysis of adhesions, fatty tumors removed posterior neck, ORIF R ankle/R tib fib, total L knee arthroplasty, L rotator cuff repair, bilateral carpal tunne releases, colonoscopies/bening polyp, EGDs. Past Anesthesia/Blood Transfusion Reactions: No Reported Reaction Date of Last Stent Placement:: 08/23/18 Past Psychological History: Anxiety Smoking Status: Never smoker - Past Family History Father History Unknown: Yes Family Medical History: Cancer Additional Family Medical History / Comment(s): PROSTATE CANCER Son(s) Family Medical History: Cancer Additional Family Medical History / Comment(s): TESTICULAR CANCER Mother Family Medical History: Coronary Artery Disease (CAD), Hypertension Sister(s) Family Medical History: Cancer General Exam - General Exam Comments Initial Comments: Physical Exam GENERAL: Patient is well-developed and well-nourished. Patient is nontoxic and well- hydrated and is in no distress. HENT: Normocephalic, Atraumatic. EYES: PERRL, EOMI PULMONARY: Unlabored respirations. No audible rales rhonchi or wheezing was noted. CARDIOVASCULAR: There is a regular rate and rhythm without any murmurs gallops or rubs. Well-healed sternotomy incision ABDOMEN: Soft and nontender with normal bowel sounds. SKIN: Skin is clear with no lesions or rashes and otherwise unremarkable. : Deferred NEUROLOGIC: Patient is alert and oriented x3. Moving all extremities spontaneously MUSCULOSKELETAL: Normal extremities with adequate strength and full range of motion. No lower extremity swelling or edema. No calf tenderness. PSYCHIATRIC: Normal psychiatric evaluation. Limitations: no limitations Course Vital Signs 10/28/18 10/29/18 10/29/18 22:39 00:00 00:21 Temperature 97.6 F 98.2 F Pulse Rate 74 71 Respiratory 16 18 Rate Blood Pressure 96/59 109/62 O2 Sat by Pulse 98 98 Oximetry Chest Pain MDM - MDM Patient was seen and evaluated, history is obtained from the patient, and review of medical record This is a elderly woman with known coronary artery disease with exertional chest pressure and pain There was discussion earlier in the day of possibly having cardiac catheterization from the patient however because he remained chest pain-free he was discharged home. The thyroid E think the patient needs to be reevaluated possible cardiac catheterization as he seems to be having unstable angina. Labs are baseline, patient is on aspirin Plavix and was on heparin throughout the day today therefore I will just continue IV heparin without a bolus. Admission orders for acute coronary syndrome were placed. Disposition Clinical Impression: Chest pain Disposition: ADMITTED IP TO THIS HOSP Condition: Stable
[2018-10-28 23:13] LABS: Albumin 3.9 g/dL (3.5-5.0); Calcium 9.5 mg/dL (8.4-10.2); Magnesium 1.7 mg/dL (1.6-2.3); Potassium 4.1 mmol/L (3.5-5.1); Total Bilirubin 0.4 mg/dL (0.2-1.3); Total Protein 6.3 g/dL (6.3-8.2)
[2018-10-28 23:16] LABS: INR 0.9 (<1.2); Partial Thromboplastin Time 22.2 sec (22.0-30.0); Prothrombin Time 9.9 sec (9.0-12.0)
--- NOTE | 2018-10-28 23:16 | XR ---
EXAM: XR Chest, 2 Views CLINICAL HISTORY: Chest Pain TECHNIQUE: Frontal and lateral views of the chest. COMPARISON: 10/27/18 FINDINGS: Lungs: Unremarkable. No consolidation. Pleural space: Unremarkable. No pneumothorax. Heart: Unremarkable. No cardiomegaly. Mediastinum: Unremarkable. Bones/joints: Bilateral acromioclavicular separations are again noted, likely chronic. Sternal wires IMPRESSION: No acute findings.
[2018-10-28 23:20] LABS: Basophils # (A) 0.1 k/uL (0-0.2); Basophils % (A) 1 %; Eosinophils # (A) 0.2 k/uL (0-0.7); Eosinophils % (A) 3 %; HCT 39.4 % (39.0-53.0); HGB 13.2 gm/dL (13.0-17.5); Lymphocytes # (A) 1.9 k/uL (1.0-4.8); Lymphocytes % (A) 26 %; MCH 31.4 pg (25.0-35.0); MCHC 33.6 g/dL (31.0-37.0); MCV 93.4 fL (80.0-100.0); Mean Platelet Volume 10.1; Monocytes # (A) 0.5 k/uL (0-1.0); Monocytes % (A) 7 %; Neutrophils # (A) 4.3 k/uL (1.3-7.7); Neutrophils % (A) 59 %; Platelet Count 181 k/uL (150-450); RBC 4.22 m/uL (4.30-5.90); RDW 15.5 % (11.5-15.5); WBC 7.3 k/uL (3.8-10.6)
[2018-10-28] MEDS ORDERED: NITROGLYCERIN SL TABS 0.4 MG TAB SUBLINGUAL PRN (23:47)
[2018-10-28] MEDS ORDERED: NALOXONE 0.4 MG/ML 1 ML VIAL IV PRN (23:47)
[2018-10-29] MEDS: HEPARIN SOD,PORK IN 0.45% NACL 25,000 UNIT in 0.45% NACL 1 250ML.BAG IV SCH ×2 (00:18→20:53)
[2018-10-29] MEDS ORDERED: traMADol 50 MG TAB PO PRN (04:22)
[2018-10-29 05:39] LABS: Platelet Count 174 k/uL (150-450)
[2018-10-29 05:52] LABS: Cholesterol 148 mg/dL (<200); HDL Cholesterol 36 mg/dL (40-60); LDL Cholesterol,Calculated 89 mg/dL (0-99); Triglycerides 115 mg/dL (<150)
[2018-10-29 06:42] LABS: Glucose,Whole Blood 131 mg/dL (75-99)
[2018-10-29] MEDS ORDERED: ASPIRIN 325 MG TAB PO SCH (09:00)
[2018-10-29] MEDS ORDERED: ACETAMINOPHEN TAB 325 MG TAB PO PRN (10:32)
[2018-10-29] MEDS ORDERED: ARTIFICIAL TEARS-HYPROMELLOSE DROPS 15 ML BTL BOTH EYES SCH (10:45)
[2018-10-29 12:22] LABS: Glucose,Whole Blood 115 mg/dL (75-99)
[2018-10-29] MEDS ORDERED: INSULIN ASPART (NovoLOG) 100 UNIT/ML VIAL SQ SCH (12:30)
--- NOTE | 2018-10-29 13:17 | CONS ---
SAMM Ceballos is an 78-year-old gentleman who presented to the hospital with chest pain. He was discharged home yesterday and came right back in with chest discomfort. He has known coronary artery disease and underwent angioplasty of squaxin right coronary artery. He was supposed to undergo an outpatient cardiac cath. Has known CAD and has had prior bypass surgery. He comes back in complaining of left-sided chest discomfort. It is sharp, precordial, localized, and he has had 2 sets of troponins that are negative. EKG shows sinus rhythm with right bundle branch block, left anterior fascicular block, PVCs and nonspecific ST-T wave changes. PAST MEDICAL HISTORY: Significant for CAD status post CABG, hypertension. MEDICATIONS: Medications at home include Ultram, Flomax, Senokot, Pravachol, Lopressor, Cozaar, Imdur, insulin, Plavix, aspirin. ALLERGIES: Including IV DYE, PENICILLIN, CYMBALTA. FAMILY HISTORY: Negative for premature coronary artery disease. SOCIAL HISTORY: Negative for current smoking, EtOH abuse or drug abuse. REVIEW OF SYSTEMS: HEENT is unremarkable. CARDIAC as described. RESPIRATORY as described. GI negative. GENITOURINARY negative. ALLERGY none. SKIN negative. MUSCULOSKELETAL significant for arthritis. PSYCHOSOCIAL negative. ENDOCRINE negative. CONSTITUTIONAL negative. ONCOLOGICAL negative. Rest of the system review is not relevant. EXAM: Comfortable at rest. Vital signs are stable. There is no jugular venous distention. Chest exam reveals good air entry bilaterally. Heart exam reveals first and second heart sounds and ejection systolic murmur in the aortic area. Abdomen is soft. Exam of extremities reveals 1+ edema. Peripheral pulses are palpable. ASSESSMENT: Unstable angina in a patient with known coronary artery disease status post prior bypass, status post recent angioplasty of squaxin right coronary artery with recent abnormal stress test. The patient had angioplasty of the saphenous vein graft to the OM branch in July and prior to that had angioplasty of the right coronary artery. MMODL / IJN: [id number] /
[2018-10-29] MEDS: INSULIN DETEMIR (LEVEMIR) 100 UNIT/ML SYR SQ SCH (13:25)
[2018-10-29] MEDS: MULTIVITAMINS, THERA 1 EACH TAB PO SCH (13:26)
[2018-10-29] MEDS: ISOSORBIDE MONONITRATE ER 30 MG TAB.ER.24H PO SCH (13:26)
[2018-10-29] MEDS: traMADol 50 MG TAB PO PRN ×2 (13:26→21:56)
[2018-10-29] MEDS: DICYCLOMINE 10 MG CAP PO SCH ×3 (13:26→20:52)
[2018-10-29] MEDS: CLOPIDOGREL 75 MG TAB PO SCH (13:26)
[2018-10-29] MEDS: SENNOSIDES-DOCUSATE SODIUM 1 EACH TAB PO SCH ×2 (13:26→20:52)
[2018-10-29] MEDS: METOPROLOL TARTRATE 12.5 MG TAB PO SCH ×2 (13:26→20:52)
[2018-10-29] MEDS: INSULIN ASPART (NovoLOG) 100 UNIT/ML VIAL SQ SCH ×3 (13:27→20:53)
[2018-10-29 16:51] LABS: Glucose,Whole Blood 118 mg/dL (75-99)
[2018-10-29 20:36] LABS: Glucose,Whole Blood 144 mg/dL (75-99)
[2018-10-29] MEDS: CHOLECALCIFEROL 1,000 UNIT TAB PO SCH (20:51)
[2018-10-29] MEDS: TAMSULOSIN 0.4 MG CAP.ER.24H PO SCH (20:52)
[2018-10-29] MEDS: PRAVASTATIN SODIUM 40 MG TAB PO SCH (20:52)
[2018-10-29] MEDS: LOSARTAN 50 MG TAB PO SCH (20:52)
--- NOTE | 2018-10-29 21:01 | P.HPIM ---
History of Present Illness H&P Date: 10/29/18 Chief Complaint: Chest pain History of presenting complaint: This is 6-year-old patient of Dr. Dean Evangelista. Chronic stable medical conditions include diabetes, hyperlipidemia, hypertension, osteoarthritis, obstructive sleep apnea. Patient's previously had coronary bypass. Patient was admitted and discharged from the hospital on September 07 from the hospital. Was then admitted for acute non-Q-wave myocardial infarction. Had a cardiac catheterization was found a significant coronary artery disease. Patient had a stent to the RCA emergently. Also PDA branch of RCA as well as stenting to the saphenous vein graft to the marginal was performed. Patient also required i ntra-aortic balloon pump and a temporary pacemaker. Subsequently patient had a tumultuous course and admitted to ICU. Patient was on the ventilator. Patient also was then delirious. Patient subsequently was transferred to inpatient rehab. Patient's had chronic abdominal pain on and off. Has been told that he is got strictures. Patient has been at home. Able to get around without cane. Patient not a good historian rather forgetful. Patient was admitted on October 27 with recurrent chest pain. Seen by cardiology and patient was discharged home yesterday. Patient was to keep his scheduled later in the month for cardiac catheterization. Upon return home patient started having more chest pains. And patient's brought him back to the ER. Sometimes short of breath sometimes tired sometimes dizziness lightheadedness. History is only obtained by the . As patient himself is forgetful Review of systems: GEN.: Tired, appetite fair EYES: None HEENT: None NECK: None RESPIRATORY: Occasionally short of breath CARDIOVASCULAR: As above GASTROINTESTINAL: Chronic abdominal pain GENITOURINARY: None MUSCULOSKELETAL: Some pain in the joints LYMPHATICS: None HEMATOLOGICAL: None PSYCHIATRY: Forgetful NEUROLOGICAL: Uses a cane Past medical history: Coronary artery disease with coronary stent, diabetes mellitus type 2, hyperlipidemia, primary osteoarthritis, obstructive sleep apnea, chronic bladder outflow obstruction,. Social history: Does not smoke or drink alcohol. . At home Family history: Prostate cancer Physical examination: VITAL SIGNS: 98.2, 64, 18, 94/50, 96% room air GENERAL: BMI 26.9, laying in bed, not in distress. EYES: Pupils equal. Conjunctiva normal. HEENT: External appearance of nose and ears normal, oral cavity grossly normal. NECK: JVD not raised; masses not palpable. HEART: First and second heart sounds are normal; no edema. LUNGS: Respiratory rate normal; decreased breath sounds. ABDOMEN: Soft, nontender, liver spleen not palpable, no masses palpable. PSYCH: Able to answer simple questions though rather forgetful. Cannot remember much about his chest pain. NEUROLOGICAL: Cranial nerves grossly intact; no facial asymmetry, power and sensation grossly intact. LYMPHATICS: No lymph nodes palpable in the axilla and neck INVESTIGATIONS, reviewed in the clinical context White count 7.3 hemoglobin 13.2 potassium 4.1 creatinine 1.0 to Troponin 0.02, 0.02, 0.0 to EKG tracing personally reviewed by me shows right bundle branch block, with PVCs Chest x-ray film personally reviewed by me shows no obvious infiltrates Assessment: -Unstable angina in a patient with known coronary artery disease, who is scheduled to have cardiac catheterization -Acute non-Q-wave myocardial infarction, on 08/23/2018 -Coronary artery disease with severe significant disease to the left main and right coronary artery. With coronary intervention -Diabetes mellitus type 2 chronically on insulin -Hyperlipidemia -Primary osteoarthritis -obstructive. 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 Was followed by Dr. Arroyo -Positive troponin, probably from hemodynamic mismatch not felt to be acute coronary syndrome -Mild cognitive impairment -CODE STATUS DO NOT RESUSCITATE from prior admissions Plan: Home medications resumed. On IV heparin. Seen by cardiology. Patient may be proceeding with cardiac catheterization on this admission.. Past Medical History Past Medical History: Coronary Artery Disease (CAD), Cancer, Diabetes Mellitus, GERD/Reflux, Hyperlipidemia, Hypertension, Memory Impairment, Osteoarthritis (OA), Pneumonia, Prostate Disorder, Sleep Apnea/CPAP/BIPAP Additional Past Medical History / Comment(s): [place] 08/23/[address]/cardiogenic shock/balloon pump/CHB with temporary pacer/thrombocytopenia. Other Hx: Chronic abdominal pain, abdominal adhesions/strictures, diverticulosis, IBS, benign colon polyp, prostate cancer with radiation, BPH, o utflow obstruction, NE-unable to tolerate mask, IDDM type II, History of Any Multi-Drug Resistant Organisms: MRSA Date of last positivie culture/infection: 08/30/18 MDRO Source:: Sputum Past Surgical History: Appendectomy, Back Surgery, Cholecystectomy, Coronary Bypass/CABG, Heart Catheterization, Heart Catheterization With Stent, Hernia Repair, Joint Replacement, Orthopedic Surgery Additional Past Surgical History / Comment(s): 08/23/18 PCI with stent to RCA, cardiac caths, 2008 CABG 3 vessels, inguinal and incisional hernia repairs, triple incisional hernia repair/lysis of adhesions, fatty tumors removed posterior neck, ORIF R ankle/R tib fib, total L knee arthroplasty, L rotator cuff repair, bilateral carpal tunne releases, colonoscopies/bening polyp, EGDs. Past Anesthesia/Blood Transfusion Reactions: No Reported Reaction Date of Last Stent Placement:: 08/23/18 Past Psychological History: Anxiety Smoking Status: Never smoker - Past Family History Father History Unknown: Yes Family Medical History: Cancer Additional Family Medical History / Comment(s): PROSTATE CANCER Son(s) Family Medical History: Cancer Additional Family Medical History / Comment(s): TESTICULAR CANCER Mother Family Medical History: Coronary Artery Disease (CAD), Hypertension Sister(s) Family Medical History: Cancer Medications and Allergies Home Medications Medication Instructions Recorded Confirmed Type Cholecalciferol [Vitamin D3 (25 1,000 unit PO HS 07/14/15 10/28/18 History Mcg = 1000 Iu)] Tamsulosin [Flomax] 0.4 mg PO HS 07/14/17 10/28/18 History Pravastatin Sodium [Pravachol] 40 mg PO HS 08/03/17 10/28/18 History Multivitamins, Thera [Multivitamin 1 tab PO DAILY 07/04/18 10/28/18 History (formulary)] Aspirin 81 mg PO DAILY chew 09/06/18 10/28/18 Rx Clopidogrel [Plavix] 75 mg PO DAILY tab 09/06/18 10/28/18 Rx Insulin Glargine [Lantus] 25 unit SQ QAM #0 09/06/18 10/28/18 Rx Artificial Tears-Hypromellose 1 drops BOTH EYES TID 09/11/18 10/28/18 History [Artificial Tear Drops] traMADol HCL [Ultram] 50 mg PO Q6H PRN #12 tablet 09/13/18 10/28/18 Rx Acetaminophen Tab [Tylenol] 650 mg PO Q6H PRN 09/14/18 10/28/18 History Dicyclomine [Bentyl] 10 mg PO TID 09/14/18 10/28/18 History INSULIN LISPRO (humaLOG) [humaLOG] See Protocol SQ ACHS 09/14/18 10/28/18 Hist ory Hydrocodone/Acetaminophen [[place] 1 tab PO BID PRN 10/27/18 10/28/18 History 7.5-325] Metoprolol Tartrate [Lopressor] 12.5 mg PO BID 10/27/18 10/28/18 History Sennosides-Docusate Sodium 1 tab PO BID 10/27/18 10/28/18 History [Senokot-S] Isosorbide Mononitrate ER [Imdur] 30 mg PO DAILY #30 tab 10/28/18 10/28/18 Rx Losartan [Cozaar] 50 mg PO HS #30 tab 10/28/18 10/28/18 Rx Allergies Allergy/AdvReac Type Severity Reaction Status Date / Time Iodinated Contrast- Oral and Allergy Rash/Hives Verified 10/28/18 23:04 IV Dye iodine Allergy Rash/Hives Verified 10/28/18 23:04 Penicillins Allergy Swelling Verified 10/28/18 23:04 duloxetine [From Cymbalta] AdvReac PRICKLY Verified 10/28/18 23:04 FEELING IN HEAD povidone-iodine AdvReac Itchy,red Verified 10/28/18 23:04 [From Betadine] skin soap [From Betadine] AdvReac Itchy,red Verified 10/28/18 23:04 skin Surgical Scrub AdvReac Unknown Itching, Uncoded 10/28/18 23:04 Red skin Physical Exam Vitals: Vital Signs Temp Pulse Pulse Resp BP BP Pulse Ox 10/29/18 20:00 98.4 F 52 L 18 117/67 95 10/29/18 16:00 58 L 110/57 10/29/18 12:00 61 113/55 93 L 10/29/18 04:00 98.2 F 64 18 94/50 96 10/29/18 00:40 98.2 F 64 16 94/52 94 L 10/29/18 00:21 98.2 F 10/29/18 00:00 71 18 109/62 98 10/28/18 22:39 97.6 F 74 16 96/59 98 Intake and Output 10/29/18 10/29/18 10/29/18 06:59 14:59 22:59 Intake Total 383.94 264.36 Balance 383.94 264.36 Intake: Intake, IV Titration 63.94 164.36 Amount Heparin Sod,Pork in 0.45% 63.94 164.36 NaCl 25,000 unit In 0.45 % NaCl 1 250ml.bag @ 11 UNITS/KG/HR 9.38 mls/hr IV .Q24H AALIYAH Rx#: [id number] Oral 320 100 Other: Voiding Method Toilet Urinal # Voids 1 Weight 78 kg Results CBC & Chem 7: 10/29/18 05:10 10/28/18 22:53 Labs: Abnormal Lab Results - Last 24 Hours (Table) 10/28/18 10/28/18 10/29/18 Range/Units 22:53 22:53 05:10 RBC 4.22 L (4.30-5.90) m/uL APTT (22.0-30.0) sec BUN 23 H (9-20) mg/dL Glucose 204 H (74-99) mg/dL POC Glucose (mg/dL) (75-99) mg/dL HDL Cholesterol 36 L (40-60) mg/dL 10/29/18 10/29/18 10/29/18 Range/Units 05:10 06:40 11:26 RBC (4.30-5.90) m/uL APTT 35.2 H 55.7 H (22.0-30.0) sec BUN (9-20) mg/dL Glucose (74-99) mg/dL POC Glucose (mg/dL) 131 H (75-99) mg/dL HDL Cholesterol (40-60) mg/dL 10/29/18 10/29/18 10/29/18 Range/Units 12:19 16:44 20:33 RBC (4.30-5.90) m/uL APTT (22.0-30.0) sec BUN (9-20) mg/dL Glucose (74-99) mg/dL POC Glucose (mg/dL) 115 H 118 H 144 H (75-99) mg/dL HDL Cholesterol (40-60) mg/dL Thrombosis Risk Factor Assmnt - Choose All That Apply Any of the Below Risk Factors Present?: Yes Each Factor Represents 1 point: Heart failure (<1month) Other Risk Factors: Yes Thrombosis Risk Factor Assessment Total Risk Factor Score: 1 Thrombosis Risk Factor Assessment Level: Low Risk
[2018-10-29] MEDS: HYDROcodone/APAP 7.5-325MG 1 EACH TAB PO PRN (23:55)
[2018-10-30] MEDS: INSULIN ASPART (NovoLOG) 100 UNIT/ML VIAL SQ SCH ×4 (09:50→20:36)
[2018-10-30] MEDS: ASPIRIN 81 MG PO SCH (09:56)
[2018-10-30] MEDS: SENNOSIDES-DOCUSATE SODIUM 1 EACH TAB PO SCH ×2 (09:56→20:36)
[2018-10-30] MEDS: DICYCLOMINE 10 MG CAP PO SCH ×3 (09:56→20:36)
[2018-10-30] MEDS: ISOSORBIDE MONONITRATE ER 30 MG TAB.ER.24H PO SCH (09:56)
[2018-10-30] MEDS: METOPROLOL TARTRATE 12.5 MG TAB PO SCH ×2 (09:56→20:36)
[2018-10-30] MEDS: MULTIVITAMINS, THERA 1 EACH TAB PO SCH (09:56)
[2018-10-30] MEDS: CLOPIDOGREL 75 MG TAB PO SCH (09:56)
[2018-10-30] MEDS: INSULIN DETEMIR (LEVEMIR) 100 UNIT/ML SYR SQ SCH (10:00)
[2018-10-30] MEDS ORDERED: ALPRAZolam 0.25 MG TAB PO PRN (10:47)
[2018-10-30] MEDS ORDERED: ASPIRIN 325 MG TAB PO STA (10:47)
[2018-10-30] MEDS ORDERED: NITROGLYCERIN SL TABS 0.4 MG TAB SUBLINGUAL PRN (10:47)
[2018-10-30] MEDS ORDERED: ATORVASTATIN 80 MG TAB PO STA (10:47)
[2018-10-30] MEDS ORDERED: ALPRAZolam 0.5 MG TAB PO PRN (10:47)
[2018-10-30] MEDS ORDERED: SODIUM CHLORIDE 0.9% 1,000 ML in EMPTY BAG 1 BAG IV ONE (10:47)
[2018-10-30 11:10] LABS: HCT 37.8 % (39.0-53.0); HGB 12.6 gm/dL (13.0-17.5); MCH 31.4 pg (25.0-35.0); MCHC 33.3 g/dL (31.0-37.0); MCV 94.2 fL (80.0-100.0); Mean Platelet Volume 11.5; RBC 4.02 m/uL (4.30-5.90); RDW 15.4 % (11.5-15.5); WBC 6.6 k/uL (3.8-10.6)
[2018-10-30 11:11] LABS: Platelet Count 180 k/uL (150-450)
[2018-10-30 11:16] LABS: African American GFR (CKD) >90 (>60 ml/min/1.73 sqM); Anion Gap 7 mmol/L; Blood Urea Nitrogen 12 mg/dL (9-20); Calcium 8.9 mg/dL (8.4-10.2); Carbon Dioxide 28 mmol/L (22-30); Chloride 107 mmol/L (98-107); Glucose 82 mg/dL (74-99); Sodium 142 mmol/L (137-145)
[2018-10-30 11:17] LABS: Magnesium 1.7 mg/dL (1.6-2.3)
[2018-10-30 12:14] LABS: Glucose,Whole Blood 108 mg/dL (75-99)
--- NOTE | 2018-10-30 15:45 | P.PN ---
Progress Note - Text Progress Note Date: 10/30/18 Chief Complaint: Chest pain Interval history: This is 6-year-old patient of Dr. Dean Evangelista. Chronic stable medical conditions include diabetes, hyperlipidemia, hypertension, osteoarthritis, obstructive sleep apnea. Patient's previously had coronary bypass. Patient was admitted and discharged from the hospital on September 07 from the hospital. Was then admitted for acute non-Q-wave myocardial infarction. Had a cardiac catheterization was found a significant coronary artery disease. Patient had a stent to the RCA emergently. Also PDA branch of RCA as well as stenting to the saphenous vein graft to the marginal was performed. Patient also required intra-aortic balloon pump and a temporary pacemaker. Subsequently patient had a tumultuous course and admitted to ICU. Patient was on the ventilator. Patient also was then delirious. Patient subsequently was transferred to inpatient rehab. Patient's had chronic abdominal pain on and off. Has been told that he is got strictures. Patient has been at home. Able to get around without cane. Patient not a good historian rather forgetful. Patient was admitted on October 27 with recurrent chest pain. Seen by cardiology and patient was discharged home yesterday. Patient was to keep his scheduled later in the month for cardiac catheterization. Upon return home patient started having more chest pains. And patient's brought him back to the ER. Sometimes short of breath sometimes tired sometimes dizziness lightheadedness. History is only obtained by the . As patient himself is forgetful Today-propped up in a chair. Comfortable. Denies any chest pain. Seen by cardiology Schedule D for cardiac catheterization tomorrow. at the bedside. Review of systems: Was done for constitutional, cardiovascular, GI, pulmonary. relevant finding as above Active Medications Acetaminophen (Tylenol Tab) 650 mg PO Q6H PRN PRN Reason: Pain Hydrocodone Bitart/Acetaminophen ([place] 7.5-325) 1 each PO BID PRN PRN Reason: Pain Last Admin: 10/29/18 23:55 Dose: 1 each Documented by: Alprazolam (Xanax) 0.25 mg PO Q6HR PRN PRN Reason: Mild Anxiety Alprazolam (Xanax) 0.5 mg PO Q6HR PRN PRN Reason: Moderate Anxiety Amlodipine Besylate (Norvasc) 5 mg PO DAILY [facility] Aspirin (Aspirin) 81 mg PO DAILY [facility] Last Admin: 10/30/18 09:56 Dose: 81 mg Documented by: Cholecalciferol (Vitamin D3 (25 Mcg = 1000 Iu)) 1,000 unit PO [facility] Last Admin: 10/29/18 20:51 Dose: 1,000 unit Documented by: Clopidogrel Bisulfate (Plavix) 75 mg PO DAILY [facility] Last Admin: 10/30/18 09:56 Dose: 75 mg Documented by: Dicyclomine HCl (Bentyl) 10 mg PO TID [facility] Last Admin: 10/30/18 09:56 Dose: 10 mg Documented by: Heparin Sodium/Sodium Chloride (25,000 unit/ Sodium Chloride) 250 mls @ 9.38 mls/hr IV .Q24H [facility]; Protocol Last Titration: 10/30/18 07:17 Dose: 12 units/kg/hr, 10.233 mls/hr Documented by: Sodium Chloride 1,000 ml/ IV (Solution) 1,000 mls @ 84.3 mls/hr IV .[id number] ONE Stop: 10/30/18 22:38 Insulin Aspart (Novolog) 0 unit SQ ACHS [facility]; Protocol Last Admin: 10/30/18 09:50 Dose: Not Given Documented by: Insulin Detemir (Levemir) 25 unit SQ QAM@0700 [facility] Last Admin: 10/30/18 10:00 Dose: 25 unit Documented by: Isosorbide Mononitrate (Imdur) 30 mg PO DAILY [facility] Last Admin: 10/30/18 09:56 Dose: 30 mg Documented by: Losartan Potassium (Cozaar) 50 mg PO [facility] Last Admin: 10/29/18 20:52 Dose: 50 mg Documented by: Metoprolol Tartrate (Lopressor) 12.5 mg PO BID [facility] Last Admin: 10/30/18 09:56 Dose: 12.5 mg Documented by: Multivitamins (Theragran) 1 each PO DAILY [facility] Last Admin: 10/30/18 09:56 Dose: 1 each Documented by: Naloxone HCl (Narcan) 0.2 mg IV Q2M PRN PRN Reason: Opioid Reversal Nitroglycerin (Nitrostat) 0.4 mg SUBLINGUAL Q5M PRN PRN Reason: Chest Pain Nitroglycerin (Nitrostat) 0.4 mg SUBLINGUAL Q5M PRN PRN Reason: Chest Pain Pravastatin Sodium (Pravachol) 40 mg PO [facility] Last Admin: 10/29/18 20:52 Dose: 40 mg Documented by: Senna/Docusate Sodium (Senokot-S) 1 each PO BID [facility] Last Admin: 10/30/18 09:56 Dose: 1 each Documented by: Tamsulosin HCl (Flomax) 0.4 mg PO [facility] Last Admin: 10/29/18 20:52 Dose: 0.4 mg Documented by: Tramadol HCl (Ultram) 50 mg PO Q6H PRN PRN Reason: Pain Last Admin: 10/29/18 21:56 Dose: 50 mg Documented by: Physical examination: VITAL SIGNS: 98.6, 75, 18, 152/85, 97% room air GENERAL: Propped up in a chair, comfortable EYES: Pupils equal. Conjunctiva normal. HEENT: External appearance of nose and ears normal, oral cavity grossly normal. NECK: JVD not raised; masses not palpable. HEART: First and second heart sounds are normal; no edema. LUNGS: Respiratory rate normal; decreased breath sounds. ABDOMEN: Soft, nontender, liver spleen not palpable, no masses palpable. PSYCH: Able to answer simple questions though rather forgetful. Cannot remember much about his chest pain. INVESTIGATIONS, reviewed in the clinical context: White count 6.6 hemoglobin 12.6 potassium 4 Admission testing White count 7.3 hemoglobin 13.2 potassium 4.1 creatinine 1.0 to Troponin 0.02, 0.02, 0.0 to EKG tracing personally reviewed by me shows right bundle branch block, with PVCs Chest x-ray film personally reviewed by me shows no obvious infiltrates Assessment: -Unstable angina in a patient with known coronary artery disease, who is scheduled to have cardiac catheterization -Acute non-Q-wave myocardial infarction, on 08/23/2018 -Coronary artery disease with severe significant disease to the left main and right coronary artery. With coronary intervention -Diabetes mellitus type 2 chronically on insulin -Hyperlipidemia -Primary osteoarthritis -obstructive. 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 Was followed by Dr. Arroyo -Positive troponin, probably from hemodynamic mismatch not felt to be acute coronary syndrome -Mild cognitive impairment -IV heparin monitoring -CODE STATUS DO NOT RESUSCITATE from prior admissions Plan: Remains on IV heparin. Continue current medication. Awaiting cardiac catheterization. Care discussed with the patient and the family the bedside.
[2018-10-30] MEDS: amLODIPine 5 MG TAB PO SCH (16:44)
[2018-10-30] MEDS: HYDROcodone/APAP 7.5-325MG 1 EACH TAB PO PRN (18:12)
--- NOTE | 2018-10-30 18:26 | PN ---
PROGRESS NOTE Tucker Vega is a patient with known CAD status post prior bypass, status post recent angioplasty of [place] right coronary artery and venous graft. He has dementia and is somewhat forgetful with his symptoms. Comes in complaining of chest pain, but a day later does not even remember that he had chest pain. He is doing well. Has not had further episodes of chest discomfort. He was supposed to undergo an outpatient catheterization. Given his recurrent hospitalizations we are going to do it on this admission. He had stenting of the [place] right coronary artery and vein graft to the OM. He has GAVIRIA to LAD and also has saphenous vein graft to diagonal. His ejection fraction is around 45-50%. On exam today comfortable at rest. Vital signs are stable. Chest exam reveals good air entry bilaterally. Heart exam reveals first and second heart sounds. No gallop. Has a systolic murmur at the left lower sternal border. Abdomen is soft. Exam of the extremities did not reveal any edema. The patient is currently on aspirin, Imdur, Cozaar 50 daily, Pravachol. ASSESSMENT: Unstable angina. PLAN: Patient will undergo cardiac catheterization tomorrow. I am going to add Norvasc 5 mg daily for optimal blood pressure control. MMODL / IJN: [id number] /
[2018-10-30 18:31] LABS: Glucose,Whole Blood 156 mg/dL (75-99)
[2018-10-30 20:04] LABS: Glucose,Whole Blood 154 mg/dL (75-99)
[2018-10-30] MEDS: CHOLECALCIFEROL 1,000 UNIT TAB PO SCH (20:36)
[2018-10-30] MEDS: PRAVASTATIN SODIUM 40 MG TAB PO SCH (20:36)
[2018-10-30] MEDS: TAMSULOSIN 0.4 MG CAP.ER.24H PO SCH (20:36)
[2018-10-30] MEDS: LOSARTAN 50 MG TAB PO SCH (20:36)
[2018-10-30] MEDS: HEPARIN SOD,PORK IN 0.45% NACL 25,000 UNIT in 0.45% NACL 1 250ML.BAG IV SCH (22:54)
[2018-10-31] MEDS: traMADol 50 MG TAB PO PRN (00:33)
[2018-10-31] MEDS: HYDROcodone/APAP 7.5-325MG 1 EACH TAB PO PRN ×2 (03:22→19:25)
[2018-10-31] MEDS: INSULIN DETEMIR (LEVEMIR) 100 UNIT/ML SYR SQ SCH (05:26)
[2018-10-31 06:16] LABS: HCT 42.9 % (39.0-53.0); HGB 14.2 gm/dL (13.0-17.5); MCH 31.2 pg (25.0-35.0); MCHC 33.1 g/dL (31.0-37.0); MCV 94.1 fL (80.0-100.0); Platelet Count 174 k/uL (150-450); RBC 4.56 m/uL (4.30-5.90); RDW 15.1 % (11.5-15.5); WBC 6.4 k/uL (3.8-10.6)
[2018-10-31 06:32] LABS: Glucose,Whole Blood 155 mg/dL (75-99)
[2018-10-31] MEDS: INSULIN ASPART (NovoLOG) 100 UNIT/ML VIAL SQ SCH ×4 (06:36→21:52)
[2018-10-31 07:02] LABS: African American GFR (CKD) >90 (>60 ml/min/1.73 sqM); Anion Gap 9 mmol/L; Blood Urea Nitrogen 9 mg/dL (9-20); Calcium 9.1 mg/dL (8.4-10.2); Carbon Dioxide 29 mmol/L (22-30); Chloride 105 mmol/L (98-107); Glucose 156 mg/dL (74-99); Potassium 3.7 mmol/L (3.5-5.1); Sodium 143 mmol/L (137-145)
[2018-10-31] MEDS ORDERED: FAMOTIDINE 20 MG/2 ML VIAL IV ONE (07:17)
[2018-10-31] MEDS ORDERED: diphenhydrAMINE 50 MG/ML 1 ML VIAL IVP ONE (07:17)
[2018-10-31] MEDS ORDERED: methylPREDNISolone SOD SUCCI 125 MG/2 ML VIAL IV ONE (07:17)
[2018-10-31] MEDS: ASPIRIN 81 MG PO SCH (07:22)
[2018-10-31] MEDS ORDERED: ASPIRIN 325 MG TAB PO STA (07:22)
[2018-10-31] MEDS: DICYCLOMINE 10 MG CAP PO SCH ×3 (08:30→21:52)
[2018-10-31] MEDS: MULTIVITAMINS, THERA 1 EACH TAB PO SCH (08:30)
[2018-10-31] MEDS: ISOSORBIDE MONONITRATE ER 30 MG TAB.ER.24H PO SCH (08:31)
[2018-10-31] MEDS: METOPROLOL TARTRATE 12.5 MG TAB PO SCH ×2 (08:31→21:52)
[2018-10-31] MEDS: amLODIPine 5 MG TAB PO SCH (08:31)
[2018-10-31] MEDS: CLOPIDOGREL 75 MG TAB PO SCH (08:31)
[2018-10-31] MEDS: SENNOSIDES-DOCUSATE SODIUM 1 EACH TAB PO SCH ×2 (08:31→21:52)
[2018-10-31] MEDS ORDERED: LIDOCAINE 1% INJ 10MG/ML (20 ML MDV) ONE (08:59)
[2018-10-31] MEDS ORDERED: IV FLUID CONTINUATION 1,000 ML IV ONE (09:15)
[2018-10-31] MEDS ORDERED: MIDAZOLAM (PF) 2 MG/2 ML VIAL IV ONE (09:21)
[2018-10-31] MEDS ORDERED: LIDOCAINE 1% INJ 10MG/ML (20 ML MDV) SQ ONE (09:23)
[2018-10-31] MEDS ORDERED: fentaNYL (PF) 50 MCG/ML 2 ML AMP ONE (09:25)
[2018-10-31] MEDS ORDERED: fentaNYL (PF) 50 MCG/ML 2 ML AMP IV ONE (09:27)
[2018-10-31] MEDS ORDERED: ENALAPRILAT 1.25 MG/ML 1 ML VIAL ONE (09:30)
[2018-10-31] MEDS ORDERED: ENALAPRILAT 1.25 MG/ML 1 ML VIAL IV ONE (09:31)
[2018-10-31] MEDS ORDERED: IOPAMIDOL-370 100ML BTL INJ ONE ×2 (09:46→09:50)
[2018-10-31] MEDS ORDERED: RX INFO: IV CONTRAST WAS GIVEN 1 EACH MISC MISCELLANE PRN (10:02)
--- NOTE | 2018-10-31 10:30 | CC ---
CARDIAC CATHETERIZATION REPORT INDICATION: Unstable angina. PROCEDURE NOTE: After obtaining informed consent, left heart catheterization and coronary angiogram are performed via the right femoral artery using standard Prudencio catheters. The patient received moderate conscious sedation and total sedation time was 31 minutes. The GAVIRIA was sub selectively engaged using a álvaro catheter. The venous graft to the OM branch was engaged using an AR2 catheter. A femoral angiogram was performed and decision was made for manual hemostasis. FINDINGS: 1. HEMODYNAMICS: Left ventricular end-diastolic pressure is 12 mm. There is no significant gradient across the aortic valve. 2. LEFT VENTRICULOGRAM: Left ventriculogram is not performed. 3. ANGIOGRAPHIC DATA: [place] CORONARY ARTERIES: Left Main Coronary Artery: Left main coronary artery is totally occluded in its proximal part. The right coronary artery is a large dominant vessel that was previously stented and stented area appears patent. Very distally as it bifurcates into PDA and PLV, the PLV branch seems occluded more distally and the PDA has mild to moderate disease. Venous graft to the OM branch appears patent. The previously stented segment in the proximal part appears free of disease. Distal anastomotic site shows 7-80% stenosis .the [place] OM branch does not show significant stenosis. GAVIRIA to LAD appears open. We only obtained subselective images. CONCLUSIONS: 1. Left main stenosis with occlusion of the distal left main. 2. Patent stent within the right coronary artery. 3. Patent venous graft to the OM branch with a patent stent. 4. significant stenosis at distal anastomotic site PLAN: I am going to have Dr. Pearson who performed his angioplasty before to review the angiographic data. will decide on stenting of distal SVG to om. This lesion is unchnaged from july.Ischemia on the nuclear scan which was a partially reversible defect could be due to the disease in thesvg to om. MMODL / IJN: [id number] / [facility]
[2018-10-31 12:05] LABS: Glucose,Whole Blood 185 mg/dL (75-99)
[2018-10-31] MEDS: SODIUM CHLORIDE 0.9% 1,000 ML IV SCH (12:08)
[2018-10-31 16:45] LABS: Glucose,Whole Blood 369 mg/dL (75-99)
[2018-10-31 20:50] LABS: Glucose,Whole Blood 310 mg/dL (75-99)
[2018-10-31] MEDS: LOSARTAN 50 MG TAB PO SCH (21:52)
[2018-10-31] MEDS: PRAVASTATIN SODIUM 40 MG TAB PO SCH (21:52)
[2018-10-31] MEDS: CHOLECALCIFEROL 1,000 UNIT TAB PO SCH (21:52)
[2018-10-31] MEDS: TAMSULOSIN 0.4 MG CAP.ER.24H PO SCH (21:52)
--- NOTE | 2018-10-31 23:24 | P.PN ---
Progress Note - Text Progress Note Date: 10/31/18 Chief Complaint: Chest pain Interval history: This is 6-year-old patient of Dr. Dean Evangelista. Chronic stable medical conditions include diabetes, hyperlipidemia, hypertension, osteoarthritis, obstructive sleep apnea. Patient's previously had coronary bypass. Patient was admitted and discharged from the hospital on September 07 from the hospital. Was then admitted for acute non-Q-wave myocardial infarction. Had a cardiac catheterization was found a significant coronary artery disease. Patient had a stent to the RCA emergently. Also PDA branch of RCA as well as stenting to the saphenous vein graft to the marginal was performed. Patient also required intra-aortic balloon pump and a temporary pacemaker. Subsequently patient had a tumultuous course and admitted to ICU. Patient was on the ventilator. Patient also was then delirious. Patient subsequently was transferred to inpatient rehab. Patient's had chronic abdominal pain on and off. Has been told that he is got strictures. Patient has been at home. Able to get around without cane. Patient not a good historian rather forgetful. Patient was admitted on October 27 with recurrent chest pain. Seen by cardiology and patient was discharged home yesterday. Patient was to keep his scheduled later in the month for cardiac catheterization. Upon return home patient started having more chest pains. And patient's brought him back to the ER. Sometimes short of breath sometimes tired sometimes dizziness lightheadedness. History is only obtained by the . As patient himself is forgetful Today-patient underwent a cardiac cath this morning. By Dr. Jacey Aponte. Cardiology will decide further course of action. Currently chest pain-free Review of systems: Was done for constitutional, cardiovascular, GI, pulmonary. relevant finding as above Active Medications Acetaminophen (Tylenol Tab) 650 mg PO Q6H PRN PRN Reason: Pain Hydrocodone Bitart/Acetaminophen ([place] 7.5-325) 1 each PO BID PRN PRN Reason: Pain Last Admin: 10/31/18 19:25 Dose: 1 each Documented by: Alprazolam (Xanax) 0.25 mg PO Q6HR PRN PRN Reason: Mild Anxiety Alprazolam (Xanax) 0.5 mg PO Q6HR PRN PRN Reason: Moderate Anxiety Amlodipine Besylate (Norvasc) 5 mg PO DAILY [facility] Last Admin: 10/31/18 08:31 Dose: 5 mg Documented by: Aspirin (Aspirin) 81 mg PO DAILY [facility] Last Admin: 10/31/18 07:22 Dose: Not Given Documented by: Cholecalciferol (Vitamin D3 (25 Mcg = 1000 Iu)) 1,000 unit PO HS [facility] Last Admin: 10/31/18 21:52 Dose: 1,000 unit Documented by: Clopidogrel Bisulfate (Plavix) 75 mg PO DAILY [facility] Last Admin: 10/31/18 08:31 Dose: 75 mg Documented by: Dicyclomine HCl (Bentyl) 10 mg PO TID [facility] Last Admin: 10/31/18 21:52 Dose: 10 mg Documented by: Heparin Sodium/Sodium Chloride (25,000 unit/ Sodium Chloride) 250 mls @ 9.38 mls/hr IV .Q24H [facility]; Protocol Last Titration: 10/31/18 05:28 Dose: 0 units/kg/hr, 0 mls/hr Documented by: Sodium Chloride ([place] 0.9%) 1,000 mls @ 75 mls/hr IV .[id number] [facility] Last Admin: 10/31/18 12:08 Dose: 75 mls/hr Documented by: Insulin Aspart (Novolog) 0 unit SQ ACHS [facility]; Protocol Last Admin: 10/31/18 21:52 Dose: 5 unit Documented by: Insulin Detemir (Levemir) 25 unit SQ QAM@0700 [facility] Last Admin: 10/31/18 05:26 Dose: Not Given Documented by: Isosorbide Mononitrate (Imdur) 30 mg PO DAILY [facility] Last Admin: 10/31/18 08:31 Dose: 30 mg Documented by: Losartan Potassium (Cozaar) 50 mg PO HS [facility] Last Admin: 10/31/18 21:52 Dose: 50 mg Documented by: Metoprolol Tartrate (Lopressor) 12.5 mg PO BID [facility] Last Admin: 10/31/18 21:52 Dose: 12.5 mg Documented by: Miscellaneous Information (Rx Info: Iv Contrast Was Given) 1 each [place]ISCE[place] DAILY PRN PRN Reason: Per Protocol Stop: 11/02/18 10:02 Multivitamins (Theragran) 1 each PO DAILY [facility] Last Admin: 10/31/18 08:30 Dose: 1 each Documented by: Naloxone HCl (Narcan) 0.2 mg IV Q2M PRN PRN Reason: Opioid Reversal Nitroglycerin (Nitrostat) 0.4 mg SUBLINGUAL Q5M PRN PRN Reason: Chest Pain Nitroglycerin (Nitrostat) 0.4 mg SUBLINGUAL Q5M PRN PRN Reason: Chest Pain Pravastatin Sodium (Pravachol) 40 mg PO [facility] Last Admin: 10/31/18 21:52 Dose: 40 mg Documented by: Senna/Docusate Sodium (Senokot-S) 1 each PO BID [facility] Last Admin: 10/31/18 21:52 Dose: 1 each Documented by: Tamsulosin HCl (Flomax) 0.4 mg PO [facility] Last Admin: 10/31/18 21:52 Dose: 0.4 mg Documented by: Tramadol HCl (Ultram) 50 mg PO Q6H PRN PRN Reason: Pain Last Admin: 10/31/18 00:33 Dose: 50 mg Documented by: Physical examination: VITAL SIGNS: 97.7, 69, 20, 113/72, 97% room air GENERAL: Laying in bed, comfortable EYES: Pupils equal. Conjunctiva normal. HEENT: External appearance of nose and ears normal, oral cavity grossly normal. NECK: JVD not raised; masses not palpable. HEART: First and second heart sounds are normal; no edema. LUNGS: Respiratory rate normal; decreased breath sounds. ABDOMEN: Soft, nontender, liver spleen not palpable, no masses palpable. PSYCH: Able to answer simple questions, forgetful INVESTIGATIONS, reviewed in the clinical context: Accu-Cheks noted Admission testing White count 7.3 hemoglobin 13.2 potassium 4.1 creatinine 1.0 to Troponin 0.02, 0.02, 0.0 to EKG tracing personally reviewed by me shows right bundle branch block, with PVCs Chest x-ray film personally reviewed by me shows no obvious infiltrates Assessment: -Unstable angina in a patient with known coronary artery disease, had a cardiac cath today on October 31. Further decision as per cardiology -Acute non-Q-wave myocardial infarction, on 08/23/2018 -Coronary artery disease with severe significant disease to the left main and right coronary artery. With coronary intervention -Diabetes mellitus type 2 chronically on insulin -Hyperlipidemia -Primary osteoarthritis -obstructive. 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 Was followed by Dr. Arroyo -Positive troponin, probably from hemodynamic mismatch not felt to be acute coronary syndrome -Mild cognitive impairment -IV heparin monitoring -CODE STATUS DO NOT RESUSCITATE from prior admissions Plan: Continue current medication treatment plan. Follow with cardiac surgery.
[2018-11-01] MEDS: HEPARIN SOD,PORK IN 0.45% NACL 25,000 UNIT in 0.45% NACL 1 250ML.BAG IV SCH ×2 (00:20→23:45)
[2018-11-01] MEDS: traMADol 50 MG TAB PO PRN (00:53)
[2018-11-01] MEDS: SODIUM CHLORIDE 0.9% 1,000 ML IV SCH ×2 (00:54→16:54)
[2018-11-01] MEDS: HYDROcodone/APAP 7.5-325MG 1 EACH TAB PO PRN ×2 (05:00→20:04)
[2018-11-01 06:01] LABS: Glucose,Whole Blood 216 mg/dL (75-99)
[2018-11-01] MEDS: INSULIN ASPART (NovoLOG) 100 UNIT/ML VIAL SQ SCH ×4 (06:33→21:21)
[2018-11-01] MEDS ORDERED: ASPIRIN 325 MG TAB PO STA (08:15)
[2018-11-01] MEDS ORDERED: methylPREDNISolone SOD SUCCI 125 MG/2 ML VIAL IV ONE (08:15)
[2018-11-01] MEDS ORDERED: diphenhydrAMINE 50 MG/ML 1 ML VIAL IVP ONE (08:15)
[2018-11-01] MEDS ORDERED: FAMOTIDINE 20 MG/2 ML VIAL IV ONE (08:15)
[2018-11-01] MEDS: INSULIN DETEMIR (LEVEMIR) 100 UNIT/ML SYR SQ SCH (08:18)
[2018-11-01] MEDS: ASPIRIN 81 MG PO SCH (08:19)
[2018-11-01] MEDS: amLODIPine 5 MG TAB PO SCH (08:24)
[2018-11-01] MEDS: METOPROLOL TARTRATE 12.5 MG TAB PO SCH ×2 (08:24→21:31)
[2018-11-01] MEDS: ISOSORBIDE MONONITRATE ER 30 MG TAB.ER.24H PO SCH (08:24)
[2018-11-01] MEDS: MULTIVITAMINS, THERA 1 EACH TAB PO SCH (08:24)
[2018-11-01] MEDS: CLOPIDOGREL 75 MG TAB PO SCH (08:24)
[2018-11-01] MEDS: DICYCLOMINE 10 MG CAP PO SCH ×3 (08:25→21:31)
[2018-11-01] MEDS: SENNOSIDES-DOCUSATE SODIUM 1 EACH TAB PO SCH ×2 (12:00→21:31)
[2018-11-01 12:04] LABS: Glucose,Whole Blood 154 mg/dL (75-99)
[2018-11-01] MEDS ORDERED: LIDOCAINE 1% INJ 10MG/ML (20 ML MDV) ONE (12:10)
[2018-11-01] MEDS ORDERED: fentaNYL (PF) 50 MCG/ML 2 ML AMP ONE (12:32)
[2018-11-01] MEDS ORDERED: fentaNYL (PF) 50 MCG/ML 2 ML AMP IV ONE (12:50)
[2018-11-01] MEDS ORDERED: LIDOCAINE 1% INJ 10MG/ML (20 ML MDV) SQ ONE (12:51)
[2018-11-01] MEDS ORDERED: IV FLUID CONTINUATION 100 ML IV ONE (12:52)
[2018-11-01] MEDS ORDERED: MIDAZOLAM (PF) 2 MG/2 ML VIAL IV ONE (12:58)
[2018-11-01] MEDS ORDERED: niCARdipine 25 MG/10 ML VIAL ONE (13:01)
[2018-11-01] MEDS ORDERED: BIVALIRUDIN BOLUS 250 MG/50 ML IV ONE (13:04)
[2018-11-01] MEDS ORDERED: BIVALIRUDIN 250 MG in SODIUM CHLORIDE 0.9% 37 ML IV ONE (13:05)
[2018-11-01] MEDS: niCARdipine Syringe (1,000 mcg/10 mL) INTRACORON ONE ×2 (13:12→13:26)
[2018-11-01] MEDS ORDERED: IOPAMIDOL-370 100ML BTL INJ ONE ×2 (13:24→13:36)
[2018-11-01] MEDS ORDERED: CLOPIDOGREL 75 MG TAB ONE (13:32)
[2018-11-01] MEDS ORDERED: CLOPIDOGREL 75 MG TAB PO ONE (13:35)
[2018-11-01] MEDS ORDERED: MAG HYDROX/AL HYDROX/SIMETH 30 ML CUP PO PRN (13:37)
[2018-11-01] MEDS ORDERED: ZOLPIDEM 5 MG TAB PO PRN (13:37)
[2018-11-01] MEDS ORDERED: RX INFO: IV CONTRAST WAS GIVEN 1 EACH MISC MISCELLANE PRN (13:37)
[2018-11-01] MEDS ORDERED: NITROGLYCERIN SL TABS 0.4 MG TAB SUBLINGUAL PRN (13:37)
[2018-11-01] MEDS ORDERED: ATROPINE SULFATE 0.1 MG/ML 10ML SYRINGE IV PRN (13:37)
[2018-11-01] MEDS ORDERED: SODIUM CHLORIDE 0.9% 1,000 ML IV SCH (13:45)
--- NOTE | 2018-11-01 14:28 | PTCA ---
PERCUTANEOUSTRANS CORORONARY ANGIOGRAPHY DATE OF SERVICE: 11/01/2018 PERFORMING PHYSICIAN: Mendoza Pearson MD, [employer]. PROCEDURE PERFORMED: 1. Intravascular ultrasound, IVUS, of the SVG to left circumflex. 2. Successful stenting of the distal anastomosis of SVG to left circumflex using 8.0 x 15 mm Xience JUAN MANUEL with excellent angiographic results and reduction of stenosis from 90% to 0%. INDICATION: This is a pleasant 78-year-old gentleman with history of coronary artery disease as well as known coronary artery bypass grafting, who presented to the hospital with chest discomfort. He underwent myocardial perfusion imaging stress test and that revealed inferolateral ischemia. He underwent a heart catheterization yesterday by Dr. Aponte and that revealed intermediate to severe disease involving the distal anastomosis of SVG to left circumflex. He was brought today for IVUS with possible stenting. APPROACH: Right common femoral artery. COMPLICATION: None. LEVEL OF SEDATION: Moderate with sedation length of 37 minutes. PROCEDURE DESCRIPTION: After obtaining an informed consent, the patient was brought to the cardiac medical laboratory specialist. The right common femoral artery was cannulated using micropuncture technique, the micropuncture wire passed easily, then I placed a 6-Uz[place] sheath in the right common femoral artery. At that point, anticoagulation was initiated using Angiomax. After that, I did engage the SVG to the left circumflex using Amplatzer 1 guide. Then I did wire it using a whisper wire. After that, I did intravascular ultrasound using manual pullback and that revealed a severe lesion with a minimal luminal area of 3.7 mm2. Because of that, I decided to stent that lesion, so I did direct stenting using 3.0 x 15 mm Xience JUAN MANUEL where the stent was positioned under fluoroscopy guidance and deployed under its nominal pressure with the following angiogram showed good angiographic results with reduction of stenosis from 70% to 0%. The procedure was completed without any complication. POSTPROCEDURE MANAGEMENT: 1. Dual anti-platelet therapy. 2. Risk factors modifications. 3. Follow up with the patient. MMODL / IJN: [id number] /
[2018-11-01 17:07] LABS: Glucose,Whole Blood 369 mg/dL (75-99)
--- NOTE | 2018-11-01 20:37 | P.PN ---
Progress Note - Text Progress Note Date: 11/01/18 Chief Complaint: Chest pain Interval history: This is 6-year-old patient of Dr. Dean Evangelista. Chronic stable medical conditions include diabetes, hyperlipidemia, hypertension, osteoarthritis, obstructive sleep apnea. Patient's previously had coronary bypass. Patient was admitted and discharged from the hospital on September 07 from the hospital. Was then admitted for acute non-Q-wave myocardial infarction. Had a cardiac catheterization was found a significant coronary artery disease. Patient had a stent to the RCA emergently. Also PDA branch of RCA as well as stenting to the saphenous vein graft to the marginal was performed. Patient also required intra-aortic balloon pump and a temporary pacemaker. Subsequently patient had a tumultuous course and admitted to ICU. Patient was on the ventilator. Patient also was then delirious. Patient subsequently was transferred to inpatient rehab. Patient's had chronic abdominal pain on and off. Has been told that he is got strictures. Patient has been at home. Able to get around without cane. Patient not a good historian rather forgetful. Patient was admitted on October 27 with recurrent chest pain. Seen by cardiology and patient was discharged home yesterday. Patient was to keep his scheduled later in the month for cardiac catheterization. Upon return home patient started having more chest pains. And patient's brought him back to the ER. Sometimes short of breath sometimes tired sometimes dizziness lightheadedness. History is only obtained by the . As patient himself is forgetful Today-underwents. angioplasty and stenting . of the distal anastomosis of SVG to left circumflex. Patient laying in bed. Comfortable. No chest pain or short of breath. Review of systems: Was done for constitutional, cardiovascular, GI, pulmonary. relevant finding as above Active Medications Acetaminophen (Tylenol Tab) 650 mg PO Q6H PRN PRN Reason: Pain Hydrocodone Bitart/Acetaminophen ([place] 7.5-325) 1 each PO BID PRN PRN Reason: Pain Last Admin: 11/01/18 20:04 Dose: 1 each Documented by: Al Hydroxide/Mg Hydroxide (Maalox) 30 ml PO Q4HR PRN PRN Reason: Heartburn Alprazolam (Xanax) 0.25 mg PO Q6HR PRN PRN Reason: Mild Anxiety Alprazolam (Xanax) 0.5 mg PO Q6HR PRN PRN Reason: Moderate Anxiety Amlodipine Besylate (Norvasc) 5 mg PO DAILY [facility] Last Admin: 11/01/18 08:24 Dose: 5 mg Documented by: Aspirin (Aspirin) 81 mg PO DAILY [facility] Last Admin: 11/01/18 08:19 Dose: Not Given Documented by: Atropine Sulfate (Atropine) 0.5 mg IV ONCE PRN PRN Reason: Symptomatic Bradycardia Cholecalciferol (Vitamin D3 (25 Mcg = 1000 Iu)) 1,000 unit PO [facility] Last Admin: 10/31/18 21:52 Dose: 1,000 unit Documented by: Clopidogrel Bisulfate (Plavix) 75 mg PO DAILY [facility] Last Admin: 11/01/18 08:24 Dose: 75 mg Documented by: Dicyclomine HCl (Bentyl) 10 mg PO TID [facility] Last Admin: 11/01/18 17:12 Dose: 10 mg Documented by: Heparin Sodium/Sodium Chloride (25,000 unit/ Sodium Chloride) 250 mls @ 9.38 mls/hr IV .Q24H [facility]; Protocol Last Admin: 11/01/18 00:20 Dose: Not Given Documented by: Sodium Chloride (Saline 0.9%) 1,000 mls @ 75 mls/hr IV .[id number] [facility] Last Admin: 11/01/18 16:54 Dose: 75 mls/hr Documented by: Insulin Aspart (Novolog) 0 unit SQ ACHS [facility]; Protocol Last Admin: 11/01/18 17:25 Dose: 7 unit Documented by: Insulin Detemir (Levemir) 25 unit SQ QAM@0700 [facility] Last Admin: 11/01/18 08:18 Dose: Not Given Documented by: Isosorbide Mononitrate (Imdur) 30 mg PO DAILY [facility] Last Admin: 11/01/18 08:24 Dose: 30 mg Documented by: Losartan Potassium (Cozaar) 50 mg PO [facility] Last Admin: 10/31/18 21:52 Dose: 50 mg Documented by: Metoprolol Tartrate (Lopressor) 12.5 mg PO BID [facility] Last Admin: 11/01/18 08:24 Dose: 12.5 mg Documented by: Miscellaneous Information (Rx Info: Iv Contrast Was Given) 1 each MISCELLANE DAILY PRN PRN Reason: Per Protocol Stop: 11/02/18 10:02 Miscellaneous Information (Rx Info: Iv Contrast Was Given) 1 each MISCELLANE DAILY PRN PRN Reason: Per Protocol Stop: 11/03/18 13:37 Multivitamins (Theragran) 1 each PO DAILY [facility] Last Admin: 11/01/18 08:24 Dose: 1 each Documented by: Naloxone HCl (Narcan) 0.2 mg IV Q2M PRN PRN Reason: Opioid Reversal Nitroglycerin (Nitrostat) 0.4 mg SUBLINGUAL Q5M PRN PRN Reason: Chest Pain Pravastatin Sodium (Pravachol) 40 mg PO HS [facility] Last Admin: 10/31/18 21:52 Dose: 40 mg Documented by: Senna/Docusate Sodium (Senokot-S) 1 each PO BID [facility] Last Admin: 11/01/18 12:00 Dose: Not Given Documented by: Tamsulosin HCl (Flomax) 0.4 mg PO HS [facility] Last Admin: 10/31/18 21:52 Dose: 0.4 mg Documented by: Tramadol HCl (Ultram) 50 mg PO Q6H PRN PRN Reason: Pain Last Admin: 11/01/18 00:53 Dose: 50 mg Documented by: Zolpidem Tartrate (Ambien) 5 mg PO HS PRN PRN Reason: Insomnia Physical examination: VITAL SIGNS: 97, 64, 14, 139 basically 5, 97% room air GENERAL: Laying in bed, comfortable EYES: Pupils equal. Conjunctiva normal. HEENT: External appearance of nose and ears normal, oral cavity grossly normal. NECK: JVD not raised; masses not palpable. HEART: First and second heart sounds are normal; no edema. LUNGS: Respiratory rate normal; decreased breath sounds. ABDOMEN: Soft, nontender, liver spleen not palpable, no masses palpable. PSYCH: Able to answer simple questions, forgetful INVESTIGATIONS, reviewed in the clinical context: Accu-Cheks noted Admission testing White count 7.3 hemoglobin 13.2 potassium 4.1 creatinine 1.0 to Troponin 0.02, 0.02, 0.0 to EKG tracing personally reviewed by me shows right bundle branch block, with PVCs Chest x-ray film personally reviewed by me shows no obvious infiltrates Assessment: -Unstable angina in a patient with known coronary artery disease, had a cardiac cath today on October 31. Today on November 01 underwentngioplasty and stenting . of the distal anastomosis of SVG to left circumflex -Acute non-Q-wave myocardial infarction, on 08/23/2018 -Coronary artery disease with severe significant disease to the left main and right coronary artery. With coronary intervention -Diabetes mellitus type 2 chronically on insulin -Hyperlipidemia -Primary osteoarthritis -obstructive. 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 Was followed by Dr. Arroyo -Positive troponin, probably from hemodynamic mismatch not felt to be acute coronary syndrome -Mild cognitive impairment -IV heparin monitoring -CODE STATUS DO NOT RESUSCITATE from prior admissions Plan: Stable otherwise. Doing well. Discussed some of the bedside. Patient is asymptomatic. Hopefully can be discharged tomorrow.
[2018-11-01 20:47] LABS: Glucose,Whole Blood 374 mg/dL (75-99)
[2018-11-01] MEDS: CHOLECALCIFEROL 1,000 UNIT TAB PO SCH (21:31)
[2018-11-01] MEDS: PRAVASTATIN SODIUM 40 MG TAB PO SCH (21:31)
[2018-11-01] MEDS: LOSARTAN 50 MG TAB PO SCH (21:31)
[2018-11-01] MEDS: TAMSULOSIN 0.4 MG CAP.ER.24H PO SCH (21:31)
[2018-11-01] MEDS ORDERED: HYDROmorphone 1 MG/ML 1 ML SYRINGE IVP STA (22:56)
[2018-11-02] MEDS: SODIUM CHLORIDE 0.9% 1,000 ML IV SCH ×2 (00:27→16:35)
[2018-11-02 06:10] LABS: Glucose,Whole Blood 316 mg/dL (75-99)
[2018-11-02] MEDS: INSULIN ASPART (NovoLOG) 100 UNIT/ML VIAL SQ SCH ×3 (06:46→17:09)
[2018-11-02 06:48] LABS: African American GFR (CKD) >90 (>60 ml/min/1.73 sqM)
[2018-11-02] MEDS: INSULIN DETEMIR (LEVEMIR) 100 UNIT/ML SYR SQ SCH (06:48)
[2018-11-02] MEDS: DICYCLOMINE 10 MG CAP PO SCH ×2 (08:30→17:09)
[2018-11-02] MEDS: CLOPIDOGREL 75 MG TAB PO SCH (08:30)
[2018-11-02] MEDS: SENNOSIDES-DOCUSATE SODIUM 1 EACH TAB PO SCH (08:30)
[2018-11-02] MEDS: ASPIRIN 81 MG PO SCH (08:30)
[2018-11-02] MEDS: ISOSORBIDE MONONITRATE ER 30 MG TAB.ER.24H PO SCH (08:30)
[2018-11-02] MEDS: MULTIVITAMINS, THERA 1 EACH TAB PO SCH (08:30)
[2018-11-02] MEDS: METOPROLOL TARTRATE 12.5 MG TAB PO SCH (08:31)
[2018-11-02] MEDS: HYDROcodone/APAP 7.5-325MG 1 EACH TAB PO PRN ×2 (08:31→17:09)
[2018-11-02] MEDS: amLODIPine 5 MG TAB PO SCH (08:31)
[2018-11-02 12:11] LABS: Glucose,Whole Blood 82 mg/dL (75-99)
[2018-11-02 12:37] VITALS: BP 122/67; PULSE 68; RESP 18; TEMP 97.9
[2018-11-02 14:51] VITALS: BMI 28.8
--- NOTE | 2018-11-02 15:45 | P.PN ---
Subjective Progress Note Date: 11/02/18 This is an 78-year-old gentleman who presented to the hospital with symptoms of chest discomfort, was taken to the cardiac catheterization lab where he ultimately underwent ARJUN was subsequent stenting of the distal anastomosis of the SVG to the circumflex artery yesterday by Dr. Garner, he was seen and exa mined this morning, denied any chest pain or difficulty in breathing. Blood\I pressure 122/60 with a heart rate in the 60s. Patient will be discharged home today to follow-up with Dr. Villa in the office post discharge. Objective - Vital Signs Vital signs: Vital Signs Temp 97.9 F 11/02/18 12:36 Pulse 68 11/02/18 12:36 Resp 18 11/02/18 12:36 BP 122/67 11/02/18 12:36 Pulse Ox 98 11/02/18 04:00 Intake & Output 11/01/18 11/02/18 11/02/18 18:59 06:59 18:59 Intake Total 890 450 238 Output Total 900 200 690 Balance -10 250 -452 Weight 83.3 kg 83.3 kg Intake: IV 50 Intake, IV Titration 600 450 Amount Sodium Chloride 0.9% 1, 600 450 000 ml @ 75 mls/hr IV . [id number] AALIYAH Rx#:[id number] Oral 240 238 Output: Urine 900 200 690 Other: Voiding Method Urinal Urinal # Voids 2 - Exam PHYSICAL EXAMINATION: GENERAL: 78-year-old gentleman in no acute distress at the time of my examination HEENT: Head is atraumatic, normocephalic. Pupils equal, round. Sclera anicteric. Conjunctiva are clear. Mucous membranes of the mouth are moist. Neck is supple. There is no elevated jugular venous pressure.] bruit is heard. HEART EXAMINATION: Heart S1 S2 1 systolic murmur is heard CHEST EXAMINATION: Lungs are clear to auscultation and precussion. No chest wall tenderness is noted on palpation or with deep breathing. ABDOMEN: Soft, nontender. Bowel sounds are heard. No organomegaly noted. EXTREMITIES: 2+ peripheral pulses with no evidence of peripheral edema and no calf tenderness noted. Right groin is soft, no evidence of any hematoma. NEUROLOGIC patient is awake, alert and oriented 3 . . - Labs CBC & Chem 7: 10/31/18 05:22 11/02/18 05:37 Labs: Abnormal Lab Results - Last 24 Hours (Table) 11/01/18 11/01/18 11/02/18 Range/Units 17:04 20:45 06:07 POC Glucose (mg/dL) 369 H 374 H 316 H (75-99) mg/dL Assessment and Plan Plan: Assessment and plan #1 status post angioplasty and stenting of the SVG to the circumflex artery #2 known history of coronary artery disease with prior bypass surgery #3 mild dementia #4 hypertension #5 hyperlipidemia Plan Patient will be discharged home today, follow-up appointment will be made with Dr. Villa in the office post discharge. Patient will continue on his current medications which include Antiplatelet therapy. DNP note has been reviewed, I agree with a documented findings and plan of care. Patient was seen and examined.
[2018-11-02 17:02] LABS: Glucose,Whole Blood 216 mg/dL (75-99)
--- NOTE | 2018-11-04 22:30 | P.DS ---
Providers Date of admission: 11/01/18 09:02 Expected date of discharge: 11/02/18 Attending physician: Amos Yañez Consults: 10/28/18 23:47 Consult Physician Urgent Consulting Provider: John Aponte Consult Reason/Comments: chest pain Do you want consulting provider notified?: Yes, Notify in am 11/01/18 13:37 Consult Physician Routine Consulting Provider: [facility] Consult Reason/Comments: Post Interventional patient Do you want consulting provider notified?: Already Contacted Primary care physician: Dean Evangelista [facility] Course: Interval history: This is 78-year-old patient of Dr. Dean Evangelista. Chronic stable medical conditions include diabetes, hyperlipidemia, hypertension, osteoarthritis, obstructive sleep apnea. Patient's previously had coronary bypass. Patient was admitted and discharged from the hospital on September 07 from the hospital. Was then admitted for acute non-Q-wave myocardial infarction. Had a cardiac catheterization was found a significant coronary artery disease. Patient had a stent to the RCA emergently. Also PDA branch of RCA as well as stenting to the saphenous vein graft to the marginal was performed. Patient also required intra-aortic balloon pump and a temporary pacemaker. Subsequently patient had a tumultuous course and admitted to ICU. Patient was on the ventilator. Patient also was then delirious. Patient subsequently was transferred to inpatient rehab. Patient's had chronic abdominal pain on and off. Has been told that he is got strictures. Patient has been at home. Able to get around without cane. Patient not a good historian rather forgetful. Patient was admitted on October 27 with recurrent chest pain. Seen by cardiology and patient was discharged home yesterday. Patient was to keep his scheduled later in the month for cardiac catheterization. Upon return home patient started having more chest pains. And patient's brought him back to the ER. Sometimes short of breath sometimes tired sometimes dizziness lightheadedness. History is only obtained by the . As patient himself is forgetful Patient underwent. angioplasty and stenting . of the distal anastomosis of SVG to left circumflex. Did well following that. No further symptoms. Care was discussed with the patient . Consultation: [facility] Physical examination: VITAL SIGNS: 97.9, 68, 18, 120/67, GENERAL: Laying in bed, comfortable EYES: Pupils equal. Conjunctiva normal. HEENT: External appearance of nose and ears normal, oral cavity grossly normal. NECK: JVD not raised; masses not palpable. HEART: First and second heart sounds are normal; no edema. LUNGS: Respiratory rate normal; decreased breath sounds. ABDOMEN: Soft, nontender, liver spleen not palpable, no masses palpable. PSYCH: Able to answer simple questions, forgetful INVESTIGATIONS, reviewed in the clinical context: Accu-Cheks noted Admission testing White count 7.3 hemoglobin 13.2 potassium 4.1 creatinine 1.0 to Troponin 0.02, 0.02, 0.0 to EKG tracing personally reviewed by me shows right bundle branch block, with PVCs Chest x-ray film personally reviewed by me shows no obvious infiltrates Discharge diagnosis: -Unstable angina in a patient with known coronary artery disease, had a cardiac cath on October 31. on November 01 underwentngioplasty and stenting . of the distal anastomosis of SVG to left circumflex -Acute non-Q-wave myocardial infarction, on 08/23/2018 -Coronary artery disease with severe significant disease to the left main and right coronary artery. With coronary intervention -Diabetes mellitus type 2 chronically on insulin -Hyperlipidemia -Primary osteoarthritis -obstructive. 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 Was followed by Dr. Arroyo -Positive troponin, probably from hemodynamic mismatch not felt to be acute coronary syndrome -Mild cognitive impairment -IV heparin monitoring -CODE STATUS DO NOT RESUSCITATE from prior admissions Disposition: Home Patient Condition at Discharge: Stable Plan - Discharge Summary Discharge Rx Participant: Yes New Discharge Prescriptions: New Nitroglycerin Sl Tabs [Nitrostat] 0.4 mg SUBLINGUAL Q5M PRN #30 tab PRN Reason: Chest Pain amLODIPine [Norvasc] 5 mg PO DAILY #30 tab Continue Cholecalciferol [Vitamin D3 (25 Mcg = 1000 Iu)] 1,000 unit PO HS Tamsulosin [Flomax] 0.4 mg PO HS Pravastatin Sodium [Pravachol] 40 mg PO HS Multivitamins, Thera [Multivitamin (formulary)] 1 tab PO DAILY Aspirin 81 mg PO DAILY chew Clopidogrel [Plavix] 75 mg PO DAILY tab Insulin Glargine [Lantus] 25 unit SQ QAM #0 Artificial Tears-Hypromellose [Artificial Tear Drops] 1 drops BOTH EYES TID traMADol HCL [Ultram] 50 mg PO Q6H PRN #12 tablet PRN Reason: Pain INSULIN LISPRO (humaLOG) [humaLOG] See Protocol SQ ACHS Dicyclomine [Bentyl] 10 mg PO TID Acetaminophen Tab [Tylenol] 650 mg PO Q6H PRN PRN Reason: Pain Hydrocodone/Acetaminophen [[place] 7.5-325] 1 tab PO BID PRN PRN Reason: Pain Metoprolol Tartrate [Lopressor] 12.5 mg PO BID Sennosides-Docusate Sodium [Senokot-S] 1 tab PO BID Losartan [Cozaar] 50 mg PO HS #30 tab Isosorbide Mononitrate ER [Imdur] 30 mg PO DAILY #30 tab Discharge Medication List Cholecalciferol [Vitamin D3 (25 Mcg = 1000 Iu)] 1,000 unit PO HS 07/14/15 [History] Tamsulosin [Flomax] 0.4 mg PO HS 07/14/17 [History] Pravastatin Sodium [Pravachol] 40 mg PO HS 08/03/17 [History] Multivitamins, Thera [Multivitamin (formulary)] 1 tab PO DAILY 07/04/18 [History] Aspirin 81 mg PO DAILY chew 09/06/18 [Rx] Clopidogrel [Plavix] 75 mg PO DAILY tab 09/06/18 [Rx] Insulin Glargine [Lantus] 25 unit SQ QAM #0 09/06/18 [Rx] Artificial Tears-Hypromellose [Artificial Tear Drops] 1 drops BOTH EYES TID 09/11/18 [History] traMADol HCL [Ultram] 50 mg PO Q6H PRN #12 tablet 09/13/18 [Rx] Acetaminophen Tab [Tylenol] 650 mg PO Q6H PRN 09/14/18 [History] Dicyclomine [Bentyl] 10 mg PO TID 09/14/18 [History] INSULIN LISPRO (humaLOG) [humaLOG] See Protocol SQ ACHS 09/14/18 [History] Hydrocodone/Acetaminophen [[place] 7.5-325] 1 tab PO BID PRN 10/27/18 [History] Metoprolol Tartrate [Lopressor] 12.5 mg PO BID 10/27/18 [History] Sennosides-Docusate Sodium [Senokot-S] 1 tab PO BID 10/27/18 [History] Isosorbide Mononitrate ER [Imdur] 30 mg PO DAILY #30 tab 10/28/18 [Rx] Losartan [Cozaar] 50 mg PO HS #30 tab 10/28/18 [Rx] Nitroglycerin Sl Tabs [Nitrostat] 0.4 mg SUBLINGUAL Q5M PRN #30 tab 11/02/18 [Rx] amLODIPine [Norvasc] 5 mg PO DAILY #30 tab 11/02/18 [Rx] Follow up Appointment(s)/Referral(s): Dean Evangelista MD [Primary Care Provider] - 11/08/18 11:15 am (Tuesday) Erlinda Moreno MD [STAFF PHYSICIAN] - 11/06/18 3:00 pm (Tuesday) Patient Instructions/Handouts: *Surgery [facility] - After Heart Catheterization - Content Publisher Instructions, Left Heart Catheterization (DC), Heart Healthy Diet (DC) Discharge Disposition: HOME SELF-CARE
== END 2018-11-02 17:38 | disposition home or self-care (01) | DRG 247 ==
LOC: EC 22:35 → 3SCARD 23:49 → OBSVTOIN 11-01 09:02
PROVIDERS: ADMIT Hospitalist; ATTEND Hospitalist
PROC: 4A023N7 Measurement of Cardiac Sampling and Pressure, Left Heart, Percutaneous Approach (ICD-10-PCS; 2018-10-31)
PROC: B2111ZZ Fluoroscopy of Multiple Coronary Arteries using Low Osmolar Contrast (ICD-10-PCS; 2018-10-31)
PROC: B2121ZZ Fluoroscopy of Single Coronary Artery Bypass Graft using Low Osmolar Contrast (ICD-10-PCS; 2018-10-31)
PROC: 027034Z Dilation of Coronary Artery, One Artery with Drug-eluting Intraluminal Device, Percutaneous Approach (ICD-10-PCS; principal; 2018-11-01 12:30)
PROC: B240ZZ3 Ultrasonography of Single Coronary Artery, Intravascular (ICD-10-PCS; principal; 2018-11-01 12:30)
DX: I25.710 Atherosclerosis of autologous vein coronary artery bypass graft(s) with unstable angina pectoris (principal); I45.2 Bifascicular block; I25.110 Atherosclerotic heart disease of native coronary artery with unstable angina pectoris; N13.8 Other obstructive and reflux uropathy; I95.9 Hypotension, unspecified; I25.82 Chronic total occlusion of coronary artery; E11.9 Type 2 diabetes mellitus without complications; F03.90 Unspecified dementia, unspecified severity, without behavioral disturbance, psychotic disturbance, mood disturbance, and anxiety; I25.2 Old myocardial infarction; G47.33 Obstructive sleep apnea (adult) (pediatric); N40.1 Benign prostatic hyperplasia with lower urinary tract symptoms; K21.9 Gastro-esophageal reflux disease without esophagitis; E78.5 Hyperlipidemia, unspecified; I10 Essential (primary) hypertension; M19.91 Primary osteoarthritis, unspecified site; K58.9 Irritable bowel syndrome, unspecified; F41.9 Anxiety disorder, unspecified; G89.29 Other chronic pain; R10.9 Unspecified abdominal pain; R77.8 Other specified abnormalities of plasma proteins; Z79.82 Long term (current) use of aspirin; Z79.02 Long term (current) use of antithrombotics/antiplatelets; Z79.4 Long term (current) use of insulin; Z79.899 Other long term (current) drug therapy; Z87.01 Personal history of pneumonia (recurrent); Z99.89 Dependence on other enabling machines and devices; Z95.5 Presence of coronary angioplasty implant and graft; Z95.1 Presence of aortocoronary bypass graft; Z86.14 Personal history of Methicillin resistant Staphylococcus aureus infection; Z85.46 Personal history of malignant neoplasm of prostate; Z86.010 Personal history of colon polyps; Z92.3 Personal history of irradiation; Z90.49 Acquired absence of other specified parts of digestive tract; Z98.890 Other specified postprocedural states; Z96.652 Presence of left artificial knee joint; Z86.2 Personal history of diseases of the blood and blood-forming organs and certain disorders involving the immune mechanism; Z88.0 Allergy status to penicillin; Z88.8 Allergy status to other drugs, medicaments and biological substances; Z88.3 Allergy status to other anti-infective agents; Z91.041 Radiographic dye allergy status; Z80.42 Family history of malignant neoplasm of prostate; Z80.43 Family history of malignant neoplasm of testis; Z82.49 Family history of ischemic heart disease and other diseases of the circulatory system
CPT/HCPCS: 36415; 71046; 80048; 80053; 80061; 82565; 83735; 84484; 85025; 85027; 85049; 85610; 85730; 92978; 93005; 93458; 99285; C1874

== ENCOUNTER 2018-11-17 04:39 | Observation (INO) | payer MEDICARE, BC ==
--- NOTE | 2018-11-17 05:16 | ED ---
Chest Pain HPI - General Stated Complaint: Arrhythmia Time Seen by Provider: 11/17/18 05:00 Source: patient, family Mode of arrival: wheelchair Limitations: no limitations - History of Present Illness Initial Comments: Patient is an 78-year-old man with history of coronary artery disease including having had a stent placed on November 01, who presents with substernal chest pressure that came on approximately 2 hours ago. Patient was at rest. He did try nitroglycerin which he states seems to have partially relieved his pain. He states the pain was intermittent lasting for a number of minutes. He is not note any other worsening or relieving factors. MD Complaint: chest pain Onset/Timin -: hour(s) Onset: during rest Pain Location: substernal Pain Radiation: none Severity: mild Quality: heaviness Consistency: intermittent Improves With: nitroglycerin Worsens With: nothing Other Symptoms: palpitations Treatments Prior to Arrival: nitroglycerin - Related Data Home Medications Medication Instructions Recorded Confirmed Cholecalciferol [Vitamin D3 (25 1,000 unit PO HS 07/14/15 11/17/18 Mcg = 1000 Iu)] Tamsulosin [Flomax] 0.4 mg PO HS 07/14/17 11/17/18 Pravastatin Sodium [Pravachol] 40 mg PO HS 08/03/17 11/17/18 Multivitamins, Thera [Multivitamin 1 tab PO DAILY 07/04/18 11/17/18 (formulary)] Artificial Tears-Hypromellose 1 drops BOTH EYES TID 09/11/18 11/17/18 [Artificial Tear Drops] Acetaminophen Tab [Tylenol] 650 mg PO Q6H PRN 09/14/18 11/17/18 Dicyclomine [Bentyl] 10 mg PO TID 09/14/18 11/17/18 INSULIN LISPRO (humaLOG) [humaLOG] See Protocol SQ ACHS 09/14/18 11/17/18 Hydrocodone/Acetaminophen [[place] 1 tab PO BID PRN 10/27/18 11/17/18 7.5-325] Metoprolol Tartrate [Lopressor] 12.5 mg PO BID 10/27/18 11/17/18 Sennosides-Docusate Sodium 1 tab PO BID 10/27/18 11/17/18 [Senokot-S] Losartan [Cozaar] 25 mg PO HS 11/17/18 11/17/18 Previous Rx's Medication Instructions Recorded Aspirin 81 mg PO DAILY chew 09/06/18 Clopidogrel [Plavix] 75 mg PO DAILY tab 09/06/18 Insulin Glargine [Lantus] 25 unit SQ QAM #0 09/06/18 traMADol HCL [Ultram] 50 mg PO Q6H PRN #12 tablet 09/13/18 Isosorbide Mononitrate ER [Imdur] 30 mg PO DAILY #30 tab 10/28/18 Nitroglycerin Sl Tabs [Nitrostat] 0.4 mg SUBLINGUAL Q5M PRN #30 tab 11/02/18 Allergies Allergy/AdvReac Type Severity Reaction Status Date / Time Iodinated Contrast- Oral and Allergy Rash/Hives Verified 11/17/18 07:35 IV Dye iodine Allergy Rash/Hives Verified 11/17/18 07:35 Penicillins Allergy Swelling Verified 11/17/18 07:35 duloxetine [From Cymbalta] AdvReac PRICKLY Verified 11/17/18 07:35 FEELING IN HEAD povidone-iodine AdvReac Itchy,red Verified 11/17/18 07:35 [From Betadine] skin soap [From Betadine] AdvReac Itchy,red Verified 11/17/18 07:35 skin Surgical Scrub AdvReac Unknown Itching, Uncoded 11/17/18 07:35 Red skin Review of Systems ROS Statement: Those systems with pertinent positive or pertinent negative responses have been documented in the HPI. ROS Other: All systems not noted in ROS Statement are negative. Constitutional: Denies: fever, chills Respiratory: Denies: cough, dyspnea Cardiovascular: Reports: as per HPI, chest pain, palpitations Gastrointestinal: Denies: abdominal pain, nausea, vomiting Genitourinary: Denies: dysuria, hematuria Musculoskeletal: Denies: back pain Skin: Denies: rash Neurological: Denies: headache, weakness EKG Findings - EKG Results: EKG: interpreted by TYRA, sinus rhythm (Was frequent PVCs, rate 75 bpm) - Blocks, [place], Hypertrophy, ST Abn: AV and intraventricular conduction: right bundle branch block (fixed/intermittent, complete/incomplete) QRS axis and voltage: left axis deviation (-30 to -90) Chamber hypertrophy or enlargement: left ventricular hypertrophy or enlargement (LVE) Past Medical History Past Medical History: Coronary Artery Disease (CAD), Cancer, Diabetes Mellitus, GERD/Reflux, Hyperlipidemia, Hypertension, Memory Impairment, Osteoarthritis (OA), Pneumonia, Prostate Disorder, Sleep Apnea/CPAP/BIPAP Additional Past Medical History / Comment(s): MA 08/23/[address]/cardiogenic shock/balloon pump/CHB with temporary pacer/thrombocytopenia. 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, IDDM type II, History of Any Multi-Drug Resistant Organisms: MRSA Date of last positivie culture/infection: 08/30/18 MDRO Source:: Sputum Past Surgical History: Appendectomy, Back Surgery, Cholecystectomy, Coronary Bypass/CABG, Heart Catheterization, Heart Catheterization With Stent, Hernia Repair, Joint Replacement, Orthopedic Surgery Additional Past Surgical History / Comment(s): 08/23/18 PCI with stent to RCA, cardiac caths, 2008 CABG 3 vessels, inguinal and incisional hernia repairs, triple incisional hernia repair/lysis of adhesions, fatty tumors removed posterior neck, ORIF R ankle/R tib fib, total L knee arthroplasty, L rotator cuff repair, bilateral carpal tunne releases, colonoscopies/bening polyp, EGDs. Past Anesthesia/Blood Transfusion Reactions: No Reported Reaction Date of Last Stent Placement:: 08/23/18 Past Psychological History: Anxiety Smoking Status: Never smoker Past Alcohol Use History: None Reported Past Drug Use History: None Reported - Past Family History Father History Unknown: Yes Family Medical History: Cancer Additional Family Medical History / Comment(s): PROSTATE CANCER Son(s) Family Medical History: Cancer Additional Family Medical History / Comment(s): TESTICULAR CANCER Mother Family Medical History: Coronary Artery Disease (CAD), Hypertension Sister(s) Family Medical History: Cancer General Exam Limitations: no limitations General appearance: alert, in no apparent distress Head exam: Present: atraumatic, normocephalic Eye exam: Present: normal appearance. Absent: scleral icterus, conjunctival injection ENT exam: Present: normal oropharynx Respiratory exam: Present: normal lung sounds bilaterally. Absent: respiratory distress, wheezes, rales, rhonchi, stridor Cardiovascular Exam: Present: regular rate, normal rhythm, normal heart sounds. Absent: systolic murmur, diastolic murmur, rubs, gallop GI/Abdominal exam: Present: soft. Absent: distended, tenderness, guarding, rebound, rigid Extremities exam: Present: normal inspection, normal capillary refill. Absent: pedal edema, calf tenderness Back exam: Present: normal inspection. Absent: CVA tenderness (R), CVA tenderness (L) Neurological exam: Present: alert Skin exam: Present: warm, dry, intact, normal color. Absent: rash Course Vital Signs 11/17/18 11/17/18 11/17/18 04:55 05:22 06:19 Temperature 97.9 F 98 F Pulse Rate 98 50 L Pulse Rate [ 66 Mutuel Cashier ] Respiratory 18 16 Rate Blood Pressure 125/74 129/80 O2 Sat by Pulse 88 L 99 Oximetry Disposition Clinical Impression: Chest pain Disposition: ADMITTED IP TO THIS HOSP Condition: Fair Instructions (If sedation given, give patient instructions): Chest Pain (ED) Is patient prescribed a controlled substance at d/c from ED?: No Referrals: Dean Evangelista MD [Primary Care Provider] - 1-2 days
[2018-11-17 06:08] LABS: Basophils # (A) 0.1 k/uL (0-0.2); Basophils % (A) 1 %; Eosinophils # (A) 0.2 k/uL (0-0.7); Eosinophils % (A) 2 %; HCT 40.5 % (39.0-53.0); HGB 13.3 gm/dL (13.0-17.5); Lymphocytes # (A) 2.3 k/uL (1.0-4.8); Lymphocytes % (A) 29 %; MCH 30.1 pg (25.0-35.0); MCHC 32.9 g/dL (31.0-37.0); MCV 91.5 fL (80.0-100.0); Mean Platelet Volume 9.8; Monocytes # (A) 0.4 k/uL (0-1.0); Monocytes % (A) 6 %; Neutrophils # (A) 4.5 k/uL (1.3-7.7); Neutrophils % (A) 58 %; Platelet Count 172 k/uL (150-450); RBC 4.43 m/uL (4.30-5.90); RDW 13.7 % (11.5-15.5); WBC 7.6 k/uL (3.8-10.6)
[2018-11-17 06:15] LABS: INR 0.9 (<1.2); Partial Thromboplastin Time 22.7 sec (22.0-30.0); Prothrombin Time 9.8 sec (9.0-12.0)
[2018-11-17 06:16] LABS: ALT 32 U/L (21-72); AST 24 U/L (17-59); African American GFR (CKD) >90 (>60 ml/min/1.73 sqM); Albumin 3.9 g/dL (3.5-5.0); Alkaline Phosphatase 56 U/L (38-126); Anion Gap 9 mmol/L; Blood Urea Nitrogen 24 mg/dL (9-20); Calcium 9.5 mg/dL (8.4-10.2); Carbon Dioxide 29 mmol/L (22-30); Chloride 103 mmol/L (98-107); Glucose 128 mg/dL (74-99); Magnesium 1.5 mg/dL (1.6-2.3); Potassium 3.7 mmol/L (3.5-5.1); Sodium 141 mmol/L (137-145); Total Bilirubin 0.4 mg/dL (0.2-1.3); Total Protein 6.5 g/dL (6.3-8.2)
--- NOTE | 2018-11-17 06:46 | XR ---
EXAM: XR Chest, 2 Views CLINICAL HISTORY: ITS.REASON XR Reason: Chest Pain TECHNIQUE: Frontal and lateral views of the chest. COMPARISON: 08/23/18 FINDINGS: Lungs: No consolidation or mass. Pleural space: No effusion. Heart: Unchanged. Mediastinum: Unremarkable. Bones/joints: No acute findings. IMPRESSION: No acute cardiopulmonary process.
[2018-11-17] MEDS ORDERED: NITROGLYCERIN SL TABS 0.4 MG TAB SUBLINGUAL PRN (07:47)
--- NOTE | 2018-11-17 10:12 | CONS ---
CONSULTATION Mr. Vega is an 78-year-old male who presented with symptoms of chest discomfort. He has a known history of coronary artery disease, has been followed by Dr. Aponte on a regular basis recently underwent a cardiac catheterization and was found to have totally occluded left main, patent stent into the RCA, saphenous vein graft to the obtuse marginal branch was patent with distal anastomotic site stenosis and a patent GAVIRIA. Subsequently he underwent stenting of the saphenous vein graft to the left circumflex obtuse marginal branch by Dr. Pearson using a 3.0 x 15 mm Xience stent. The patient had chest discomfort today. According to him, the discomfort was not related to any physical activity and came into the emergency room. At the time my evaluation, he is feeling well. He has some discomfort when he takes a deep breath or on palpation of the chest. He denies any pounding. No dizziness. No peripheral edema. No clear PND nor orthopnea. His echocardiogram revealed an ejection fraction was 35% to 40% with mild mitral and tricuspid regurgitation in his most recent admission. His coronary risk factors are positive for hyperlipidemia, hypertension and diabetes. He is a nonsmoker. MEDICATIONS: His medications include aspirin once a day, Plavix 75 mg daily, insulin, isosorbide mononitrate 30 mg daily, Cozaar 25 mg daily, Lopressor 12.5 mg twice a day, pravastatin 40 mg daily, Flomax 0.4 mg daily. PHYSICAL EXAMINATION: Blood pressure running in the 130s with the heart rate in the 50s. HEAD: Normocephalic. EYES: Sclerae anicteric. NECK: Good carotid upstroke. No bruit. No jugular venous distention. LUNGS: Clear to auscultation. HEART: Regular rate and rhythm. S1, S2. No S3 with systolic murmur at the base. No diastolic murmur. No rub. ABDOMEN: Soft, nontender. Positive bowel sounds. No organomegaly. EXTREMITIES: No edema. LAB DATA: Lab data revealed a troponin 0.023. BUN and creatinine 24 and 0.86. Potassium 3.7. Hemoglobin of 13.3. EKG revealed a sinus mechanism, right bundle branch block with left anterior fascicular block and occasional PVCs, unchanged compared with the prior testing. Chest x-ray shows no acute infiltrate. IMPRESSION: 1. Chest discomfort of unclear etiology, status post recent stenting. No evidence to suggest an occlusion of the recent stent. Some of the pattern of the symptoms is atypical. 2. Status post recent stenting of the saphenous vein graft to the obtuse marginal branch. 3. Status post coronary artery bypass grafting. 4. Ischemic cardiomyopathy. 5. Hypertension. 6. Hyperlipidemia. 7. Diabetes mellitus. RECOMMENDATION: From the cardiac standpoint, we will continue on the present regimen. I will follow his cardiac enzymes and depending on the trend if he has any abnormalities or change in the pattern of symptoms, then coronary angiography may be needed at this time. We will continue clinical observation. Thank you for this consult. We will follow with you. MMRUELL / REJIN: [id number] /
[2018-11-17] MEDS ORDERED: traMADol 50 MG TAB PO PRN (10:50)
[2018-11-17 11:36] LABS: Glucose,Whole Blood 149 mg/dL (75-99)
[2018-11-17] MEDS ORDERED: INSULIN DETEMIR (LEVEMIR) 100 UNIT/ML SYR SQ SCH (12:00)
[2018-11-17] MEDS: ASPIRIN 81 MG PO SCH (12:03)
[2018-11-17] MEDS: INSULIN ASPART (NovoLOG) 100 UNIT/ML VIAL SQ SCH ×3 (12:04→21:07)
[2018-11-17] MEDS: ISOSORBIDE MONONITRATE ER 30 MG TAB.ER.24H PO SCH (12:04)
[2018-11-17] MEDS: MULTIVITAMINS, THERA 1 EACH TAB PO SCH (12:04)
[2018-11-17] MEDS: CLOPIDOGREL 75 MG TAB PO SCH (12:04)
[2018-11-17] MEDS: METOPROLOL TARTRATE 12.5 MG TAB PO SCH ×2 (12:04→21:14)
[2018-11-17] MEDS: ATORVASTATIN 40 MG TAB PO SCH (12:04)
[2018-11-17] MEDS ORDERED: NALOXONE 0.4 MG/ML 1 ML VIAL IV PRN (13:05)
--- NOTE | 2018-11-17 13:05 | P.HPIM ---
History of Present Illness H&P Date: 11/17/18 Chief Complaint: Chest pain 78-year-old male with PMH of CAD post stent and CABG, diabetes mellitus, hypertension, dyslipidemia, memory impairment, NE presents to the ED for chest pain. Patient is pleasantly confused due to his memory impairment and I had a difficult time obtaining answers from this patient. Majority of history was obtained from documentation. Patient apparently presented to the ED for chest pain that started early in the morning. The chest pain started when he was at rest. Apparently, nitroglycerin relieved his pain. Patient described the pain as substernal, heaviness in nature associated with palpitations. When I asked the patient regarding his chest pain, he was unaware of such complaint and denied any chest pain at all. He denied any headaches, lower extremity edema, nausea or vomiting, fever or chills, cough, shortness of breath, palpitations, changes in urination or bowel habits. No changes in appetite or weight. He denies any dizziness, numbness/weakness/tingling of the extremities. Of note, patient had a recent cardiac catheterization in 10/28/2018 that showed totally occluded left main proximally and significant stenosis at the SVG to OM and a stenotic site. Patient underwent stent placement on 11/01/2018 of the SVG to OM. He was recommended dual antiplatelet medication. It is unclear if patient has been compliant with his medications given his poor memory. In the ED, vital signs are stable. CBC was unremarkable. Coagulation panel was negative. CMP showed BUN of 24 and glucose 128. Magnesium was 1.5. Troponin was 0.023, EKG showing sinus rhythm with frequent PVCs. BNP was 1170, chest x- ray show no acute process. Patient is admitted for chest pain, rule out acute coronary syndrome with cardiology consulted. Review of Systems Pertinent positives and negatives as discussed in HPI, a complete review of systems was performed and all other systems are negative. Past Medical History Past Medical History: Coronary Artery Disease (CAD), Cancer, Diabetes Mellitus, GERD/Reflux, Hyperlipidemia, Hypertension, Memory Impairment, Osteoarthritis (OA), Pneumonia, Prostate Disorder, Sleep Apnea/CPAP/BIPAP Additional Past Medical History / Comment(s): MA 08/23/[address]/car diogenic shock/balloon pump/CHB with temporary pacer/thrombocytopenia. 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, IDDM type II, History of Any Multi-Drug Resistant Organisms: MRSA Date of last positivie culture/infection: 08/30/18 MDRO Source:: Sputum Past Surgical History: Appendectomy, Back Surgery, Cholecystectomy, Coronary Bypass/CABG, Heart Catheterization, Heart Catheterization With Stent, Hernia Repair, Joint Replacement, Orthopedic Surgery Additional Past Surgical History / Comment(s): 08/23/18 PCI with stent to RCA, cardiac caths, 2008 CABG 3 vessels, inguinal and incisional hernia repairs, triple incisional hernia repair/lysis of adhesions, multiple surgeries for abdominal adhessions, fatty tumors removed posterior neck, ORIF R ankle/R tib fib, total L knee arthroplasty, L rotator cuff repair, bilateral carpal tunne releases, colonoscopies/bening polyp, EGDs. Past Anesthesia/Blood Transfusion Reactions: No Reported Reaction Date of Last Stent Placement:: 08/23/18 Smoking Status: Never smoker - Past Family History Father History Unknown: Yes Family Medical History: Cancer Additional Family Medical History / Comment(s): PROSTATE CANCER Son(s) Family Medical History: Cancer Additional Family Medical History / Comment(s): TESTICULAR CANCER Mother Family Medical History: Coronary Artery Disease (CAD), Hypertension Sister(s) Family Medical History: Cancer Medications and Allergies Home Medications Medication Instructions Recorded Confirmed Type Cholecalciferol [Vitamin D3 (25 1,000 unit PO HS 07/14/15 11/17/18 History Mcg = 1000 Iu)] Tamsulosin [Flomax] 0.4 mg PO HS 07/14/17 11/17/18 History Pravastatin Sodium [Pravachol] 40 mg PO HS 08/03/17 11/17/18 History Multivitamins, Thera [Multivitamin 1 tab PO DAILY 07/04/18 11/17/18 History (formulary)] Aspirin 81 mg PO DAILY chew 09/06/18 11/17/18 Rx Clopidogrel [Plavix] 75 mg PO DAILY tab 09/06/18 11/17/18 Rx Insulin Glargine [Lantus] 25 unit SQ QAM #0 09/06/18 11/17/18 Rx Artificial Tears-Hypromellose 1 drops BOTH EYES TID 09/11/18 11/17/18 History [Artificial Tear Drops] traMADol HCL [Ultram] 50 mg PO Q6H PRN #12 tablet 09/13/18 11/17/18 Rx Acetaminophen Tab [Tylenol] 650 mg PO Q6H PRN 09/14/18 11/17/18 History Dicyclomine [Bentyl] 10 mg PO TID 09/14/18 11/17/18 History INSULIN LISPRO (humaLOG) [humaLOG] See Protocol SQ ACHS 09/14/18 11/17/18 H istory Hydrocodone/Acetaminophen [[place] 1 tab PO BID PRN 10/27/18 11/17/18 History 7.5-325] Metoprolol Tartrate [Lopressor] 12.5 mg PO BID 10/27/18 11/17/18 History Sennosides-Docusate Sodium 1 tab PO BID 10/27/18 11/17/18 History [Senokot-S] Isosorbide Mononitrate ER [Imdur] 30 mg PO DAILY #30 tab 10/28/18 11/17/18 Rx Nitroglycerin Sl Tabs [Nitrostat] 0.4 mg SUBLINGUAL Q5M PRN #30 tab 11/02/18 11/17/18 Rx Losartan [Cozaar] 25 mg PO HS 11/17/18 11/17/18 History Allergies Allergy/AdvReac Type Severity Reaction Status Date / Time Iodinated Contrast- Oral and Allergy Rash/Hives Verified 11/17/18 07:35 IV Dye iodine Allergy Rash/Hives Verified 11/17/18 07:35 Penicillins Allergy Swelling Verified 11/17/18 07:35 duloxetine [From Cymbalta] AdvReac PRICKLY Verified 11/17/18 07:35 FEELING IN HEAD povidone-iodine AdvReac Itchy,red Verified 11/17/18 07:35 [From Betadine] skin soap [From Betadine] AdvReac Itchy,red Verified 11/17/18 07:35 skin Surgical Scrub AdvReac Unknown Itching, Uncoded 11/17/18 07:35 Red skin Physical Exam Vitals: Vital Signs Temp Pulse Pulse Pulse Resp BP BP 11/17/18 12:00 66 78 18 11/17/18 11:20 97.4 F L 78 18 156/95 11/17/18 08:24 97.4 F L 52 L 18 154/87 11/17/18 08:00 18 11/17/18 07:50 11/17/18 07:40 138/73 11/17/18 07:30 146/77 11/17/18 07:20 146/77 11/17/18 07:10 146/77 11/17/18 07:00 52 L 135/74 11/17/18 06:50 51 L 135/74 11/17/18 06:40 0 L 135/74 11/17/18 06:30 48 L 16 129/80 11/17/18 06:20 50 L 6 L 129/80 11/17/18 06:19 98 F 50 L 16 129/80 11/17/18 06:10 56 L 27 H 129/80 11/17/18 06:00 78 12 135/80 11/17/18 05:50 69 7 L 135/80 11/17/18 05:40 58 L 9 L 135/80 11/17/18 05:30 59 L 8 L 137/75 11/17/18 05:22 66 11/17/18 05:20 56 L 9 L 137/75 11/17/18 05:10 61 18 137/75 11/17/18 05:00 65 16 131/82 11/17/18 04:55 97.9 F 98 18 125/74 11/17/18 04:51 Pulse Ox 11/17/18 12:00 11/17/18 11:20 97 11/17/18 08:24 98 11/17/18 08:00 100 11/17/18 07:50 100 11/17/18 07:40 99 11/17/18 07:30 11/17/18 07:20 99 11/17/18 07:10 100 11/17/18 07:00 91 L 11/17/18 06:50 99 11/17/18 06:40 99 11/17/18 06:30 99 11/17/18 06:20 99 11/17/18 06:19 99 11/17/18 06:10 99 11/17/18 06:00 98 11/17/18 05:50 98 11/17/18 05:40 98 11/17/18 05:30 97 11/17/18 05:22 11/17/18 05:20 99 11/17/18 05:10 98 11/17/18 05:00 98 11/17/18 04:55 88 L 11/17/18 04:51 95 Intake and Output 11/16/18 11/17/18 11/17/18 22:59 06:59 14:59 Other: Voiding Method Toilet Urinal Weight 85.275 kg General: [non toxic], [no distress], [appears at stated age] Derm: [warm], [dry] Head: [atraumatic], [normocephalic], [symmetric] Eyes: [EOMI], [no lid lag], [anicteric sclera] Mouth: [no lip lesion], [mucus membranes moist] Cardiovascular: [S1S2 reg], [no murmur], [positive DP pulse bilateral], Lungs: [CTA bilateral], [no rhonchi, no rales] , [no accessory muscle use] Abdominal: [soft], [ nontender to palpation], [no guarding], [no appreciable organomegaly] Ext: [no gross muscle atrophy], [no edema], [no contractures] Neuro: [ CN II-XI grossly intact], [no focal neuro deficits] Psych: [Pleasantly confused] Results CBC & Chem 7: 11/17/18 05:00 11/17/18 05:00 Labs: Abnormal Lab Results - Last 24 Hours (Table) 11/17/18 11/17/18 Range/Units 05:00 11:33 BUN 24 H (9-20) mg/dL Glucose 128 H (74-99) mg/dL POC Glucose (mg/dL) 149 H (75-99) mg/dL Magnesium 1.5 L (1.6-2.3) mg/dL Thrombosis Risk Factor Assmnt - Choose All That Apply Any of the Below Risk Factors Present?: Yes Each Factor Represents 1 point: Hx of IBD, Obesity (BMI >25) Other Risk Factors: Yes Each Risk Factor Represents 2 Points: Malignancy Each Risk Factor Represents 3 Points: Age 75 years or older Other congenital or acquired thrombophilia - If yes, enter type in comment: No Thrombosis Risk Factor Assessment Total Risk Factor Score: 7 Thrombosis Risk Factor Assessment Level: High Risk Assessment and Plan Assessment: Assessment and Plan Chest pain, rule out acute coronary syndrome with history of CAD Diabetes mellitus with hyperglycemia Hypertension Dyslipidemia IBS Troponin 0.023, 0.014 with EKG showing sinus rhythm with frequent PVCs. Chest x-ray within normal limits. Plans: Trend Trop/EKG to rule out ACS. Telemetry m onitoring. Continue aspirin, Lipitor and Plavix. Continue beta robert. Nitrostat as needed for chest pain. Follow cardiology recommendations. [id number] glucose 149. Plans: Insulin sliding scale. Regular checks. Hypoglycemic precautions. Levemir 25 units in the morning. BP 156/95. Plans: Continue Imdur, losartan, metoprolol. Monitor vitals, adjust medications as necessary. Plans: Continue Lipitor. Plans: Bentyl as needed. DVT prophylaxis: [SCD boots] Discussed with: [Patient] Anticipated discharge: [1-2 days] Anticipated discharge place: [Home] A total of [30] minutes was spent on the care of this complex patient more than 50% of the time was spent in counseling and care coordination. We will discuss the case with his when she arrives as patient is a poor historian. Patient is admitted for chest pain, rule out acute coronary sy ndrome, cardiology consulted. He is admitted for anticipated less than 48 hours. Patient will remain full code at this time by default.
[2018-11-17] MEDS: HYDROcodone/APAP 7.5-325MG 1 EACH TAB PO PRN ×2 (13:48→22:31)
[2018-11-17 16:31] LABS: Glucose,Whole Blood 201 mg/dL (75-99)
[2018-11-17] MEDS: DICYCLOMINE 10 MG CAP PO SCH ×2 (17:18→21:06)
[2018-11-17 20:04] LABS: Glucose,Whole Blood 204 mg/dL (75-99)
[2018-11-17] MEDS ORDERED: MAGNESIUM SULFATE-D5W PMX 1 GM in DEXTROSE/WATER 1 100ML.BAG IVPB ONE (21:00)
[2018-11-17] MEDS ORDERED: METOPROLOL TARTRATE 12.5 MG TAB PO SCH (21:00)
[2018-11-17] MEDS ORDERED: PRAVASTATIN SODIUM 40 MG TAB PO SCH (21:00)
[2018-11-17] MEDS ORDERED: TAMSULOSIN 0.4 MG CAP.ER.24H PO SCH (21:00)
[2018-11-17] MEDS: LOSARTAN 25 MG TAB PO SCH (21:07)
[2018-11-17] MEDS: SENNOSIDES-DOCUSATE SODIUM 1 EACH TAB PO SCH (21:15)
[2018-11-18 04:35] LABS: Cholesterol 182 mg/dL (<200); HDL Cholesterol 39 mg/dL (40-60); LDL Cholesterol,Calculated 113 mg/dL (0-99); Triglycerides 149 mg/dL (<150)
[2018-11-18 06:36] LABS: Glucose,Whole Blood 159 mg/dL (75-99)
[2018-11-18] MEDS: MULTIVITAMINS, THERA 1 EACH TAB PO SCH (07:47)
[2018-11-18] MEDS: CLOPIDOGREL 75 MG TAB PO SCH (07:48)
[2018-11-18] MEDS: METOPROLOL TARTRATE 12.5 MG TAB PO SCH (07:48)
[2018-11-18] MEDS: ATORVASTATIN 40 MG TAB PO SCH (07:48)
[2018-11-18] MEDS: ISOSORBIDE MONONITRATE ER 30 MG TAB.ER.24H PO SCH (07:48)
[2018-11-18] MEDS: DICYCLOMINE 10 MG CAP PO SCH (07:48)
[2018-11-18] MEDS: SENNOSIDES-DOCUSATE SODIUM 1 EACH TAB PO SCH (07:48)
[2018-11-18] MEDS: ASPIRIN 81 MG PO SCH (07:48)
--- NOTE | 2018-11-18 08:03 | P.PN ---
Subjective Progress Note Date: 11/18/18 This is a 78-year-old gentleman with history of ischemic heart disease with a previous bypass surgery who recently underwent stent placement of the vein graft to the circumflex, admitted to the hospital with complaints of chest pain. Patient was seen by Dr. Jang. The pains were felt to be atypical and probably noncardiac. Cardiac enzymes are negative. Patient's seems to be stable since yesterday without any recurrence of chest pain. A lung findings are stable. Patient could be discharged home. Follow-up with Dr. Moreno in 1 week Objective - Vital Signs Vital signs: Vital Signs Temp 98.0 F 11/18/18 04:00 Pulse 73 11/18/18 04:00 Resp 16 11/18/18 04:00 BP 132/75 11/18/18 04:00 Pulse Ox 96 11/18/18 04:00 Intake & Output 11/17/18 11/18/18 11/18/18 18:59 06:59 18:59 Intake Total 680 100 Output Total 500 Balance 680 -400 Intake: Intake, IV Titration 100 Amount Magnesium Sulfate-D5w Pmx 100 1 gm In Dextrose/Water 1 100ml.bag @ 100 mls/hr IVPB ONCE ONE Rx#: [id number] Oral 480 Other 200 Output: Urine 500 Other: Voiding Method Toilet Toilet Toilet Urinal Urinal Urinal # Voids 3 1 - Exam GENERAL EXAM: Patient is alert and oriented and doesn't appear to be in any acute distress HEENT: Normocephalic. Normal reaction of pupils, equal size, normal range of extraocular motion. No erythema or exudates in the throat. NECK: No masses, no nuchal rigidity. CHEST: No chest wall deformity. LUNGS: Equal air entry with no crackles or wheeze. HEART: S1 and S2 normal with no audible mumurs or gallops. Regular rhythm, femorals equal on both sides.. ABDOMEN: No hepatosplenomegaly, normal bowel sounds, no guarding or rigidity. SKIN: No rashes CENTRAL NERVOUS SYSTEM: No focal deficits. EXTREMITIES: No cyanosis, clubbing or edema. - Labs CBC & Chem 7: 11/17/18 05:00 11/17/18 05:00 Labs: Abnormal Lab Results - Last 24 Hours (Table) 11/17/18 11/17/18 11/17/18 Range/Units 05:00 11:33 16:28 POC Glucose (mg/dL) 149 H 201 H (75-99) mg/dL LDL Cholesterol, Calc 113 H (0-99) mg/dL HDL Cholesterol 39 L (40-60) mg/dL 11/17/18 11/18/18 Range/Units 20:03 06:31 POC Glucose (mg/dL) 204 H 159 H (75-99) mg/dL LDL Cholesterol, Calc (0-99) mg/dL HDL Cholesterol (40-60) mg/dL Assessment and Plan (1) History of coronary artery bypass graft Current Visit: Yes Status: Acute Code(s): Z95.1 - PRESENCE OF AORTOCORONARY BYPASS GRAFT SNOMED Code(s): 732701206 (2) Chest pain Current Visit: Yes Status: Acute Code(s): R07.9 - CHEST PAIN, UNSPECIFIED SNOMED Code(s): 04698125 (3) Diabetes mellitus, insulin dependent (IDDM), uncontrolled Current Visit: No Status: Acute Code(s): E10.65 - TYPE 1 DIABETES MELLITUS WITH HYPERGLYCEMIA SNOMED Code(s): 71811108 Plan: Patient is clinically stable. Enzymes are negative. Could be discharged home. Follow-up in the office in one week
[2018-11-18 08:09] VITALS: BP 138/65; PULSE 72; RESP 18; TEMP 98.1
[2018-11-18] MEDS ORDERED: ISOSORBIDE MONONITRATE ER 30 MG TAB.ER.24H PO SCH (09:00)
[2018-11-18] MEDS ORDERED: CLOPIDOGREL 75 MG TAB PO SCH (09:00)
[2018-11-18] MEDS ORDERED: ASPIRIN 81 MG PO SCH (09:00)
[2018-11-18] MEDS ORDERED: ASPIRIN 325 MG TAB PO SCH (09:00)
--- NOTE | 2018-11-18 09:22 | P.DS ---
Providers Date of admission: 11/17/18 07:48 Expected date of discharge: 11/18/18 Attending physician: Atul Puente MD Consults: 11/17/18 07:48 Consult Physician Routine Consulting Provider: Mendoza Pearson Consult Reason/Comments: chest pain Do you want consulting provider notified?: Yes Primary care physician: [facility] Course: 78-year-old male with PMH of CAD post stent and CABG, diabetes mellitus, hypertension, dyslipidemia, memory impairment, NE presents to the ED for chest pain. Patient is pleasantly confused due to his memory impairment and I had a diffic ult time obtaining answers from this patient. Majority of history was obtained from documentation. Patient apparently presented to the ED for chest pain that started early in the morning. The chest pain started when he was at rest. Apparently, nitroglycerin relieved his pain. Patient described the pain as substernal, heaviness in nature associated with palpitations. When I asked the patient regarding his chest pain, he was unaware of such complaint and denied any chest pain at all. He denied any headaches, lower extremity edema, nausea or vomiting, fever or chills, cough, shortness of breath, palpitations, changes in urination or bowel habits. No changes in appetite or weight. He denies any dizziness, numbness/weakness/tingling of the extremities. Of note, patient had a recent cardiac catheterization in 10/28/2018 that showed totally occluded left main proximally and significant stenosis at the SVG to OM and a stenotic site. Patient underwent stent placement on 11/01/2018 of the SVG to OM. He was recommended dual antiplatelet medication. It is unclear if patient has been compliant with his medications given his poor memory. In the ED, vital signs are stable. CBC was unremarkable. Coagulation panel was negative. CMP showed BUN of 24 and glucose 128. Magnesium was 1.5. Troponin was 0.023, EKG showing sinus rhythm with frequent PVCs. BNP was 1170, chest x- ray show no acute process. Patient is admitted for chest pain, rule out acute coronary syndrome with cardiology consulted. Cardiology was consulted and recommended overnight observation of the patient a nd to trend enzymes. Troponins were 0.023, 0.014, 0.013. Cardiology cleared the patient for discharge the following day to follow-up in clinic within 1 week. Patient was seen and examined. No acute events overnight. Patient reports no chest pain, shortness of breath or palpitations. No nausea or vomiting. No fever or chills. He does complain of some belly pain but related to IBS and states that this is normal for him. General: [non toxic], [no distress], [appears at stated age] Derm: [warm], [dry] Head: [atraumatic], [normocephalic], [symmetric] Eyes: [EOMI], [no lid lag], [anicteric sclera] Mouth: [no lip lesion], [mucus membranes moist] Cardiovascular: [S1S2 reg], [no murmur], [positive DP pulse bilateral], Lungs: [CTA bilateral], [no rhonchi, no rales] , [no accessory muscle use] Abdominal: [soft], [ nontender to palpation], [no guarding], [no appreciable organomegaly] Ext: [no gross muscle atrophy], [no edema], [no contractures] Neuro: [no focal neuro deficits] Psych: [Pleasantly confused] Assessment and Plan Chest pain, rule out acute coronary syndrome with history of CAD Diabetes mellitus with hyperglycemia Hypertension Dyslipidemia IBS Troponin 0.023, 0.014, 0.013 with EKG showing sinus rhythm with frequent PVCs, ACS ruled out. Chest x-ray within normal limits. Plans: Telemetry monitoring. Continue aspirin, Lipitor and Plavix. Continue beta robert. Nitrostat as needed for chest pain. Cardiology cleared. [id number] glucose 159. Plans: Insulin sliding scale. Regular checks. Hypoglycemic precautions. [place] 25 [place] [address]. Plans: Continue Imdur, losartan, metoprolol. Monitor vitals, adjust medications as necessary. Plans: Continue Lipitor. Plans: Bentyl as needed. [Acute coronary syndrome has been ruled out. Patient has been cleared by cardiology to follow-up in clinic within 1 week.] Patient Condition at Discharge: Stable Plan - Discharge Summary Discharge Rx Participant: No New Discharge Prescriptions: Continue Cholecalciferol [Vitamin D3 (25 Mcg = 1000 Iu)] 1,000 unit PO HS Tamsulosin [Flomax] 0.4 mg PO HS Pravastatin Sodium [Pravachol] 40 mg PO HS Multivitamins, Thera [Multivitamin (formulary)] 1 tab PO DAILY Aspirin 81 mg PO DAILY chew Clopidogrel [Plavix] 75 mg PO DAILY tab Insulin Glargine [Lantus] 25 unit SQ QAM #0 Artificial Tears-Hypromellose [Artificial Tear Drops] 1 drops BOTH EYES TID traMADol HCL [Ultram] 50 mg PO Q6H PRN #12 tablet PRN Reason: Pain INSULIN LISPRO (humaLOG) [humaLOG] See Protocol SQ ACHS Dicyclomine [Bentyl] 10 mg PO TID Acetaminophen Tab [Tylenol] 650 mg PO Q6H PRN PRN Reason: Pain Hydrocodone/Acetaminophen [[place] 7.5-325] 1 tab PO BID PRN PRN Reason: Pain Metoprolol Tartrate [Lopressor] 12.5 mg PO BID Sennosides-Docusate Sodium [Senokot-S] 1 tab PO BID Isosorbide Mononitrate ER [Imdur] 30 mg PO DAILY #30 tab Nitroglycerin Sl Tabs [Nitrostat] 0.4 mg SUBLINGUAL Q5M PRN #30 tab PRN Reason: Chest Pain Losartan [Cozaar] 25 mg PO HS Discharge Medication List Cholecalciferol [Vitamin D3 (25 Mcg = 1000 Iu)] 1,000 unit PO HS 07/14/15 [History] Tamsulosin [Flomax] 0.4 mg PO HS 07/14/17 [History] Pravastatin Sodium [Pravachol] 40 mg PO HS 08/03/17 [History] Multivitamins, Thera [Multivitamin (formulary)] 1 tab PO DAILY 07/04/18 [History] Aspirin 81 mg PO DAILY chew 09/06/18 [Rx] Clopidogrel [Plavix] 75 mg PO DAILY tab 09/06/18 [Rx] Insulin Glargine [Lantus] 25 unit SQ QAM #0 09/06/18 [Rx] Artificial Tears-Hypromellose [Artificial Tear Drops] 1 drops BOTH EYES TID 09/11/18 [History] traMADol HCL [Ultram] 50 mg PO Q6H PRN #12 tablet 09/13/18 [Rx] Acetaminophen Tab [Tylenol] 650 mg PO Q6H PRN 09/14/18 [History] Dicyclomine [Bentyl] 10 mg PO TID 09/14/18 [History] INSULIN LISPRO (humaLOG) [humaLOG] See Protocol SQ ACHS 09/14/18 [History] Hydrocodone/Acetaminophen [[place] 7.5-325] 1 tab PO BID PRN 10/27/18 [History] Metoprolol Tartrate [Lopressor] 12.5 mg PO BID 10/27/18 [History] Sennosides-Docusate Sodium [Senokot-S] 1 tab PO BID 10/27/18 [History] Isosorbide Mononitrate ER [Imdur] 30 mg PO DAILY #30 tab 10/28/18 [Rx] Nitroglycerin Sl Tabs [Nitrostat] 0.4 mg SUBLINGUAL Q5M PRN #30 tab 11/02/18 [Rx] Losartan [Cozaar] 25 mg PO HS 11/17/18 [History] Follow up Appointment(s)/Referral(s): Dean Evangelista MD [Primary Care Provider] - 1-2 days Iggy Jang MD [STAFF PHYSICIAN] - 1 Week Patient Instructions/Handouts: Chest Pain (ED) Activity/Diet/Wound Care/Special Instructions: Diet: Diabetic, heart healthy Follow-up PCP within 1-2 days of discharge. Follow-up cardiology within 1 week of discharge. Take all medications as advised. Discharge Disposition: HOME SELF-CARE
== END 2018-11-18 10:50 | disposition home or self-care (01) ==
LOC: EC 04:39 → 1SOBS 07:48
PROVIDERS: ADMIT Internal Medicine; ATTEND Internal Medicine
DX: R07.89 Other chest pain (principal); R07.2 Precordial pain; R00.2 Palpitations; R41.3 Other amnesia; I25.10 Atherosclerotic heart disease of native coronary artery without angina pectoris; Z95.5 Presence of coronary angioplasty implant and graft; Z95.1 Presence of aortocoronary bypass graft; I10 Essential (primary) hypertension; E78.5 Hyperlipidemia, unspecified; G47.33 Obstructive sleep apnea (adult) (pediatric); I25.82 Chronic total occlusion of coronary artery; K58.9 Irritable bowel syndrome, unspecified; E10.65 Type 1 diabetes mellitus with hyperglycemia; I25.2 Old myocardial infarction; G89.29 Other chronic pain; R10.9 Unspecified abdominal pain; I49.3 Ventricular premature depolarization; K21.9 Gastro-esophageal reflux disease without esophagitis; N40.0 Benign prostatic hyperplasia without lower urinary tract symptoms; M19.90 Unspecified osteoarthritis, unspecified site; E66.9 Obesity, unspecified; Z68.29 Body mass index [BMI] 29.0-29.9, adult; I08.1 Rheumatic disorders of both mitral and tricuspid valves; I25.5 Ischemic cardiomyopathy; I49.9 Cardiac arrhythmia, unspecified; F41.9 Anxiety disorder, unspecified; Z99.89 Dependence on other enabling machines and devices; Z87.01 Personal history of pneumonia (recurrent); Z86.010 Personal history of colon polyps; Z85.46 Personal history of malignant neoplasm of prostate; Z92.3 Personal history of irradiation; Z86.14 Personal history of Methicillin resistant Staphylococcus aureus infection; Z90.49 Acquired absence of other specified parts of digestive tract; Z79.899 Other long term (current) drug therapy; Z79.82 Long term (current) use of aspirin; Z79.02 Long term (current) use of antithrombotics/antiplatelets; Z79.4 Long term (current) use of insulin; Z79.891 Long term (current) use of opiate analgesic; Z91.041 Radiographic dye allergy status; Z88.0 Allergy status to penicillin; Z88.8 Allergy status to other drugs, medicaments and biological substances; Z91.048 Other nonmedicinal substance allergy status; Z80.42 Family history of malignant neoplasm of prostate; Z80.43 Family history of malignant neoplasm of testis; Z82.49 Family history of ischemic heart disease and other diseases of the circulatory system
CPT/HCPCS: 96365; 99285; 36415; 93005; 83880; 80061; 80053; 83735 ×2; 84484; 85025; 85610; 85730; 71046; G0378 ×2; J3475

== ENCOUNTER 2018-11-27 11:13 | Inpatient (IN) | payer MEDICARE, BC ==
--- NOTE | 2018-11-27 11:31 | ED ---
Chest Pain HPI - General Stated Complaint: chest pain Time Seen by Provider: 11/27/18 11:13 Source: patient, EMS, RN notes reviewed, old records reviewed - History of Present Illness Initial Comments: This 78-year-old male with a history of coronary artery disease and stents in the past as well as other surgeries who presents today with complaints of the onset at 6:30 this morning of stabbing chest pain 8/10 severity initially did not respond to his home nitroglycerin EMS was ultimately called patient did get improvement after nitroglycerin down to a 2 or 3/10 severity currently he states he has some aching type discomfort in the lower anterior chest also some dizziness no fevers chills nausea vomiting sweats or other modifying factors or symptoms MD Complaint: chest pain - Related Data Home Medications Medication Instructions Recorded Confirmed Cholecalciferol [Vitamin D3 (25 1,000 unit PO HS 07/14/15 11/27/18 Mcg = 1000 Iu)] Tamsulosin [Flomax] 0.4 mg PO HS 07/14/17 11/27/18 Pravastatin Sodium [Pravachol] 40 mg PO HS 08/03/17 11/27/18 Multivitamins, Thera [Multivitamin 1 tab PO DAILY 07/04/18 11/27/18 (formulary)] Artificial Tears-Hypromellose 1 drops BOTH EYES TID 09/11/18 11/27/18 [Artificial Tear Drops] Acetaminophen Tab [Tylenol] 650 mg PO Q6H PRN 09/14/18 11/27/18 Dicyclomine [Bentyl] 10 mg PO TID 09/14/18 11/27/18 INSULIN LISPRO (humaLOG) [humaLOG] See Protocol SQ ACHS 09/14/18 11/27/18 Hydrocodone/Acetaminophen [[place] 1 tab PO BID PRN 10/27/18 11/27/18 7.5-325] Metoprolol Tartrate [Lopressor] 12.5 mg PO DAILY 10/27/18 11/27/18 Sennosides-Docusate Sodium 1 tab PO BID 10/27/18 11/27/18 [Senokot-S] Losartan [Cozaar] 25 mg PO HS 11/17/18 11/27/18 Gabapentin [Neurontin] 300 mg PO TID 11/27/18 11/27/18 Isosorbide Mononitrate ER [Imdur] 15 mg PO DAILY 11/27/18 11/27/18 Previous Rx's Medication Instructions Recorded Aspirin 81 mg PO DAILY chew 09/06/18 Clopidogrel [Plavix] 75 mg PO DAILY tab 09/06/18 Insulin Glargine [Lantus] 25 unit SQ QAM #0 09/06/18 traMADol HCL [Ultram] 50 mg PO Q6H PRN #12 tablet 09/13/18 Nitroglycerin Sl Tabs [Nitrostat] 0.4 mg SUBLINGUAL Q5M PRN #30 tab 11/02/18 Allergies Allergy/AdvReac Type Severity Reaction Status Date / Time Iodinated Contrast Media Allergy Rash/Hives Verified 11/27/18 11:31 iodine Allergy Rash/Hives Verified 11/27/18 11:31 Penicillins Allergy Swelling Verified 11/27/18 11:31 duloxetine [From Cymbalta] AdvReac PRICKLY Verified 11/27/18 11:31 FEELING IN HEAD povidone-iodine AdvReac Itchy,red Verified 11/27/18 11:31 [From Betadine] skin soap [From Betadine] AdvReac Itchy,red Verified 11/27/18 11:31 skin Surgical Scrub AdvReac Unknown Itching, Uncoded 11/17/18 07:35 Red skin Review of Systems ROS Statement: Those systems with pertinent positive or pertinent negative responses have been documented in the HPI. ROS Other: All systems not noted in ROS Statement are negative. EKG Findings - EKG Results: EKG: interpreted by ERMManny (QT/QTC 48/541 red bundle-branch lung with anterior fascicular block LVH) Past Medical History Past Medical History: Coronary Artery Disease (CAD), Cancer, Diabetes Mellitus, GERD/Reflux, Hyperlipidemia, Hypertension, Memory Impairment, Osteoarthritis (OA), Pneumonia, Prostate Disorder, Sleep Apnea/CPAP/BIPAP Additional Past Medical History / Comment(s): [place] 08/23/[address]/cardiogenic shock/balloon pump/CHB with temporary pacer/thrombocytopenia. 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, IDDM type II, History of Any Multi-Drug Resistant Organisms: MRSA Date of last positivie culture/infection: 08/30/18 MDRO Source:: Sputum Past Surgical History: Appendectomy, Back Surgery, Cholecystectomy, Coronary Bypass/CABG, Heart Catheterization, Heart Catheterization With Stent, Hernia Repair, Joint Replacement, Orthopedic Surgery Additional Past Surgical History / Comment(s): 08/23/18 PCI with stent to RCA, cardiac caths, 2009 CABG 3 vessels, inguinal and incisional hernia repairs, triple incisional hernia repair/lysis of adhesions, multiple surgeries for abdominal adhessions, fatty tumors removed posterior neck, ORIF R ankle/R tib fib, total L knee arthroplasty, L rotator cuff repair, bilateral carpal tunne releases, colonoscopies/bening polyp, EGDs. Past Anesthesia/Blood Transfusion Reactions: No Reported Reaction Date of Last Stent Placement:: 08/23/18 Smoking Status: Never smoker - Past Family History Father History Unknown: Yes Family Medical History: Cancer Additional Family Medical History / Comment(s): PROSTATE CANCER Son(s) Family Medical History: Cancer Additional Family Medical History / Comment(s): TESTICULAR CANCER Mother Family Medical History: Coronary Artery Disease (CAD), Hypertension Sister(s) Family Medical History: Cancer General Exam - General Exam Comments Initial Comments: This is a well-developed well-nourished awake alert oriented 3 male General appearance: alert, in no apparent distress Head exam: Present: atraumatic, normocephalic, normal inspection Eye exam: Present: normal appearance, PERRL, EOMI. Absent: scleral icterus, conjunctival injection, periorbital swelling ENT exam: Present: normal exam, mucous membranes moist Neck exam: Present: normal inspection. Absent: tenderness, meningismus, lymphadenopathy Respiratory exam: Present: normal lung sounds bilaterally. Absent: respiratory distress, wheezes, rales, rhonchi, stridor Cardiovascular Exam: Present: regular rate, normal rhythm, normal heart sounds, other (Well-healed mid sternal and abdominal scar.). Absent: systolic murmur, diastolic murmur, rubs, gallop, clicks GI/Abdominal exam: Present: soft, normal bowel sounds, other (Well-healed right upper quadrant scar consistent with cholecystectomy). Absent: distended, tenderness, guarding, rebound, rigid Extremities exam: Present: normal inspection, full ROM, normal capillary refill. Absent: tenderness, pedal edema, joint swelling, calf tenderness Back exam: Present: normal inspection Neurological exam: Present: alert, oriented X3, CN II-XII intact Psychiatric exam: Present: normal affect, normal mood Skin exam: Present: warm, dry, intact, normal color. Absent: rash Course Vital Signs 11/27/18 11/27/18 11/27/18 11:16 11:20 11:30 Temperature 98.0 F Pulse Rate 76 76 Respiratory 18 6 L Rate Blood Pressure 89/60 81/53 O2 Sat by Pulse 95 95 96 Oximetry 11/27/18 11/27/18 11/27/18 11:32 12:00 12:30 Temperature Pulse Rate 76 76 Respiratory 18 18 Rate Blood Pressure 97/58 97/58 90/61 O2 Sat by Pulse 96 98 Oximetry 11/27/18 11/27/18 13:30 14:00 Temperature Pulse Rate 75 70 Respiratory 20 18 Rate Blood Pressure 93/63 103/65 O2 Sat by Pulse 98 97 Oximetry - Reevaluation(s) Reevaluation #1: 11/27/18 14:54 Reevaluation patient was feeling improved. Chest Pain MDM - MDM I did discuss findings with the patient family as well as with Dr. Yañez patient will be admitted with cardiology consultation. Disposition Clinical Impression: Chest pain, Hypomagnesemia syndrome Disposition: ADMITTED IP TO THIS [facility] Condition: Stable Referrals: Dean Evangelista MD [Primary Care Provider] - 1-2 days
[2018-11-27 12:01] LABS: Basophils # (A) 0.1 k/uL (0-0.2); Basophils % (A) 1 %; Eosinophils # (A) 0.1 k/uL (0-0.7); Eosinophils % (A) 1 %; HCT 37.5 % (39.0-53.0); HGB 13.1 gm/dL (13.0-17.5); Lymphocytes # (A) 1.5 k/uL (1.0-4.8); Lymphocytes % (A) 12 %; MCH 30.9 pg (25.0-35.0); MCV 88.5 fL (80.0-100.0); Monocytes # (A) 1.1 k/uL (0-1.0); Monocytes % (A) 9 %; Neutrophils # (A) 9.6 k/uL (1.3-7.7); Neutrophils % (A) 76 %; Platelet Count 188 k/uL (150-450); RBC 4.23 m/uL (4.30-5.90); RDW 13.2 % (11.5-15.5); WBC 12.7 k/uL (3.8-10.6)
[2018-11-27 12:07] LABS: ALT 22 U/L (21-72); AST 21 U/L (17-59); African American GFR (CKD) >90 (>60 ml/min/1.73 sqM); Albumin 3.5 g/dL (3.5-5.0); Alkaline Phosphatase 51 U/L (38-126); Anion Gap 11 mmol/L; Blood Urea Nitrogen 20 mg/dL (9-20); Carbon Dioxide 25 mmol/L (22-30); Chloride 102 mmol/L (98-107); Creatine Kinase 46 U/L (55-170); Glucose 176 mg/dL (74-99); Magnesium 1.5 mg/dL (1.6-2.3); Potassium 3.7 mmol/L (3.5-5.1); Sodium 138 mmol/L (137-145); Total Bilirubin 0.7 mg/dL (0.2-1.3)
[2018-11-27 12:16] LABS: INR 0.9 (<1.2); Partial Thromboplastin Time 22.6 sec (22.0-30.0); Prothrombin Time 9.7 sec (9.0-12.0)
--- NOTE | 2018-11-27 12:21 | XR ---
EXAMINATION TYPE: XR chest 2V DATE OF EXAM: 11/27/2018 COMPARISON: 11/17/2018 HISTORY: Chest pain TECHNIQUE: Frontal and lateral views of the chest are obtained. FINDINGS: There is no focal air space opacity, pleural effusion, or pneumothorax seen. Post CABG elia nges are seen of the mediastinum with upper limits of normal size of the cardiomediastinal silhouette . Flattening of the diaphragm suggests underlying COPD. Extensive degenerative changes of the shoulde rs and surgical change of the acromio clavicular joints is seen. The osseous structures are intact. There are mild to moderate multilevel degenerative changes of the spine. IMPRESSION: No acute cardiopulmonary process. Post CABG changes of the chest and underlying emphysem a.
[2018-11-27] MEDS ORDERED: MAGNESIUM SULFATE-D5W PMX 1 GM in DEXTROSE/WATER 1 100ML.BAG IVPB ONE (12:46)
[2018-11-27] MEDS ORDERED: NITROGLYCERIN SL TABS 0.4 MG TAB SUBLINGUAL PRN (15:06)
[2018-11-27] MEDS ORDERED: ACETAMINOPHEN TAB 325 MG TAB PO PRN (15:08)
[2018-11-27] MEDS ORDERED: ARTIFICIAL TEARS-HYPROMELLOSE DROPS 15 ML BTL BOTH EYES PRN (16:00)
[2018-11-27 16:30] LABS: Glucose,Whole Blood 172 mg/dL (75-99)
[2018-11-27] MEDS: INSULIN ASPART (NovoLOG) 100 UNIT/ML VIAL SQ SCH ×2 (17:15→20:23)
[2018-11-27] MEDS: DICYCLOMINE 10 MG CAP PO SCH ×2 (17:15→23:07)
[2018-11-27] MEDS: GABAPENTIN 300 MG CAP PO SCH ×2 (17:15→23:07)
[2018-11-27 20:04] LABS: Glucose,Whole Blood 211 mg/dL (75-99)
[2018-11-27] MEDS: NITROGLYCERIN SL TABS 0.4 MG TAB SUBLINGUAL PRN ×2 (20:16→20:28)
[2018-11-27] MEDS: CHOLECALCIFEROL 1,000 UNIT TAB PO SCH (20:22)
[2018-11-27] MEDS: SENNOSIDES-DOCUSATE SODIUM 1 EACH TAB PO SCH (20:22)
[2018-11-27] MEDS: LOSARTAN 25 MG TAB PO SCH (20:23)
[2018-11-27] MEDS: PRAVASTATIN SODIUM 40 MG TAB PO SCH (20:23)
[2018-11-27] MEDS: TAMSULOSIN 0.4 MG CAP.ER.24H PO SCH (20:23)
[2018-11-28 04:02] LABS: Cholesterol 146 mg/dL (<200); HDL Cholesterol 40 mg/dL (40-60); LDL Cholesterol,Calculated 83 mg/dL (0-99); Triglycerides 117 mg/dL (<150)
[2018-11-28 06:33] LABS: Glucose,Whole Blood 115 mg/dL (75-99)
[2018-11-28] MEDS ORDERED: METOPROLOL TARTRATE 12.5 MG TAB PO SCH (09:00)
[2018-11-28] MEDS ORDERED: ASPIRIN 325 MG TAB PO SCH (09:00)
[2018-11-28] MEDS ORDERED: ASPIRIN 81 MG PO SCH (09:00)
[2018-11-28] MEDS: INSULIN ASPART (NovoLOG) 100 UNIT/ML VIAL SQ SCH ×4 (09:45→20:25)
[2018-11-28] MEDS: DICYCLOMINE 10 MG CAP PO SCH ×3 (11:27→20:27)
[2018-11-28] MEDS: MULTIVITAMINS, THERA 1 EACH TAB PO SCH (11:27)
[2018-11-28] MEDS: INSULIN DETEMIR (LEVEMIR) 100 UNIT/ML SYR SQ SCH (11:27)
[2018-11-28] MEDS: ISOSORBIDE MONONITRATE ER 15 MG TAB PO SCH (11:27)
[2018-11-28] MEDS: CLOPIDOGREL 75 MG TAB PO SCH (11:27)
[2018-11-28] MEDS: SENNOSIDES-DOCUSATE SODIUM 1 EACH TAB PO SCH ×2 (11:28→20:27)
[2018-11-28] MEDS: GABAPENTIN 300 MG CAP PO SCH ×3 (11:28→20:29)
[2018-11-28] MEDS: METOPROLOL TARTRATE 25 MG TAB PO SCH (11:35)
[2018-11-28 11:48] LABS: Glucose,Whole Blood 112 mg/dL (75-99)
--- NOTE | 2018-11-28 12:41 | P.CRDCN ---
History of Present Illness History of present illness: This is a pleasant 78-year-old male past medical history significant for coronary artery disease status post bypass grafting and subsequent stent placement to the SVG-circumflex 11/01/2018 prior to that in July 2018 he suffered a non-ST elevated myocardial infarction and underwent successful stent placement to the distal RCA and PDA. At that time he was taken back to [facility] due to ongoing chest pain and required balloon pump placement and stenting of the SVG-OM. He also has hypertension, dyslipidemia, dementia, diabetes mellitus and cardiogenic shock requiring IABP placement 07/2018. He continues to have intermittent chest discomfort since that time. The pain is in the right side of his chest and described as sharp. He cannot specify aggravating or alleviating factors. He is somewhat of a poor historian. He denies associated shortness of breath, dizziness, nausea, vomiting, diaphoresis or palpitations. Telemetry tracings reviewed, through the night he was having quite a few PVC's in trigemminy pattern at times. This morning starting around 0700 there are mult iple episodes of non-sustained monomorphic VT. He is asymptomatic during these episodes. Overall he complains of feeling weak and tired. EKG reveals sinus mechanism, right bundle branch block, left anterior fasicular block and poor R-wave progression. Chest xray negative for an acute cardiopulmonary process. Laboratory data reviewed, cardiac enzymes negative x3, WBC 12.7, hgb 13.1, plt 188, sodium 138, potassium 3.7, creatinine 0.81, magnesium on admission 1.5 was replaced repeat value pending, LDL 83. Current daily cardiac medications include aspirin 81 mg daily, plavix 75 mg daily, imdur 15 mg daily, losartain 25 mg daily, lopressor 12.5 mg daily and pravastatin 40 mg daily. Most recent echocardiogram obtained 09/2018 revealed impaired LV systolic function with ejection fraction 35-40%, inferior hypokinesia, septal hypokinesia, mild MR and mild TR. At the time of my exam: CONSTITUTIONAL: Denies fever. Denies chills. EYES: Denies blurred vision. Denies vision changes. Denies eye pain. EARS, NOSE, MOUTH & THROAT: Denies headache. Denies sore throat. Denies ear pain. CARDIOVASCULAR: Denies chest pain. Denies shortness of breath. Denies orthopnea. Denies PND. Denies palpitations. RESPIRATORY: Denies cough. GASTROINTESTINAL: Denies abdominal pain. Denies diarrhea. Denies constipation. Denies nausea. Denies vomiting. MUSCULOSKELETAL: Denies myalgias. INTEGUMENTARY: Denies pruitis. Denies rash. NEUROLOGIC: Denies numbness. Denies tingling. Denies weakness. PSYCHIATRIC: Denies anxiety. Denies depression. ENDOCRINE: Complains of fatigue. Denies weight change. Denies polydipsia. Denies polyurina. GENITOURINARY: Denies burning, hematuria or urgency with micturation. HEMATOLOGIC: Denies history of anemia. Denies bleeding. Blood pressure 147/70 heart rate 98 afebrile maintaining oxygen saturation on room air GENERAL: This is a 78-year-old male in no apparent distress at the time of my examination. HEENT: Head is atraumatic, normocephalic. Pupils are equal, round. Sclerae anicteric. Conjunctivae are clear. Mucous membranes of the mouth are moist. Neck is supple. There is no jugular venous distention. No carotid bruit is heard. LUNGS: Clear to auscultation no wheezes, rales or rhonchi. No chest wall tenderness is noted on palpation or with deep breathing. HEART: Regular rate and rhythm without murmurs, rubs or gallops. S1 and S2 heard. ABDOMEN: Soft, nontender. Bowel sounds are heard. No organomegaly noted. EXTREMITIES: No evidence of peripheral edema and no calf tenderness noted. VASCULAR: Radial and dorsalis pedis pulses palpated, no evidence of clubbing. NEUROLOGIC: Patient is awake, alert and oriented x3. ASSESSMENT Chest pain, atypical for angina Non-sustained monomorphic ventricular tachycardia Hypomagnesemia Ischemic cardiomyopathy, EF 35-40% History of coronary artery disease s/p bypass grafting and subsequent stent placement to the [place] RCA and PDA as well as vein grafts Hypertension Diabetes mellitus History of cardiogenic shock requiring IABP PLAN Check magnesium level and replace per protocol. Increase lopressor to 25 mg daily. Repeat limited echo for LV function. Recommend proceeding with cardiac catheterization to assess for progression of CAD or in-stent restenosis. If unchanged then will ask for further EP evaluation for possible EP study or ICD implantation. Further recommendations to follows. Thank you kindly for this consultation. Nurse Practitioner note has been reviewed, I agree with a documented findings and plan of care. Patient was seen and examined. Past Medical History Past Medical History: Coronary Artery Disease (CAD), Cancer, Diabetes Mellitus, GERD/Reflux, Hyperlipidemia, Hypertension, Memory Impairment, Osteoarthritis (OA), Pneumonia, Prostate Disorder, Sleep Apnea/CPAP/BIPAP Additional Past Medical History / Comment(s): [place]/[address]/cardiogenic shock/balloon pump/CHB with temporary pacer/thrombocytopenia. 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, IDDM type II, History of Any Multi-Drug Resistant Organisms: MRSA Date of last positivie culture/infection: 08/30/18 MDRO Source:: Sputum Past Surgical History: Appendectomy, Back Surgery, Cholecystectomy, Coronary Bypass/CABG, Heart Catheterization, Heart Catheterization With Stent, Hernia Re pair, Joint Replacement, Orthopedic Surgery Additional Past Surgical History / Comment(s): 08/23/18 PCI with stent to RCA, cardiac caths, 2008 CABG 3 vessels, inguinal and incisional hernia repairs, triple incisional hernia repair/lysis of adhesions, multiple surgeries for ab dominal adhessions, fatty tumors removed posterior neck, ORIF R ankle/R tib fib, total L knee arthroplasty, L rotator cuff repair, bilateral carpal tunne releases, colonoscopies/bening polyp, EGDs. Past Anesthesia/Blood Transfusion Reactions: No Reported Reaction Date of Last Stent Placement:: 08/23/18 Past Psychological History: Anxiety Additional Psychological History / Comment(s): Pt resides with his spouse. He uses a cane to ambulate. He has not been driving recently d/t health reasons. His spouse and family drive him to [employer]. Smoking Status: Never smoker Past Alcohol Use History: None Reported Past Drug Use History: None Reported - Past Family History Father History Unknown: Yes Family Medical History: Cancer Additional Family Medical History / Comment(s): PROSTATE CANCER Son(s) Family Medical History: Cancer Additional Family Medical History / Comment(s): TESTICULAR CANCER Mother Family Medical History: Coronary Artery Disease (CAD), Hypertension Sister(s) Family Medical History: Cancer Medications and Allergies Home Medications Medication Instructions Recorded Confirmed Type Cholecalciferol [Vitamin D3 (25 1,000 unit PO HS 07/14/15 11/27/18 History Mcg = 1000 Iu)] Tamsulosin [Flomax] 0.4 mg PO HS 07/14/17 11/27/18 History Pravastatin Sodium [Pravachol] 40 mg PO HS 08/03/17 11/27/18 History Multivitamins, Thera [Multivitamin 1 tab PO DAILY 07/04/18 11/27/18 History (formulary)] Aspirin 81 mg PO DAILY chew 09/06/18 11/27/18 Rx Clopidogrel [Plavix] 75 mg PO DAILY tab 09/06/18 11/27/18 Rx Insulin Glargine [Lantus] 25 unit SQ QAM #0 09/06/18 11/27/18 Rx Artificial Tears-Hypromellose 1 drops BOTH EYES TID 09/11/18 11/27/18 History [Artificial Tear Drops] traMADol HCL [Ultram] 50 mg PO Q6H PRN #12 tablet 09/13/18 11/27/18 Rx Acetaminophen Tab [Tylenol] 650 mg PO Q6H PRN 09/14/18 11/27/18 History Dicyclomine [Bentyl] 10 mg PO TID 09/14/18 11/27/18 History INSULIN LISPRO (humaLOG) [humaLOG] See Protocol SQ ACHS 09/14/18 11/27/18 History Hydrocodone/Acetaminophen [[place] 1 tab PO BID PRN 10/27/18 11/27/18 History 7.5-325] Metoprolol Tartrate [Lopressor] 12.5 mg PO DAILY 10/27/18 11/27/18 History Sennosides-Docusate Sodium 1 tab PO BID 10/27/18 11/27/18 History [Senokot-S] Nitroglycerin Sl Tabs [Nitrostat] 0.4 mg SUBLINGUAL Q5M PRN #30 tab 11/02/18 11/27/18 Rx Losartan [Cozaar] 25 mg PO HS 11/17/18 11/27/18 History Gabapentin [Neurontin] 300 mg PO TID 11/27/18 11/27/18 History Isosorbide Mononitrate ER [Imdur] 15 mg PO DAILY 11/27/18 11/27/18 History Allergies Allergy/AdvReac Type Severity Reaction Status Date / Time Iodinated Contrast Media Allergy Rash/Hives Verified 11/27/18 11:31 iodine Allergy Rash/Hives Verified 11/27/18 11:31 Penicillins Allergy Swelling Verified 11/27/18 11:31 duloxetine [From Cymbalta] AdvReac PRICKLY Verified 11/27/18 11:31 FEELING IN HEAD povidone-iodine AdvReac Itchy,red Verified 11/27/18 11:31 [From Betadine] skin soap [From Betadine] AdvReac Itchy,red Verified 11/27/18 11:31 skin Surgical Scrub AdvReac Unknown Itching, Uncoded 11/17/18 07:35 Red skin Physical Exam Vitals: Vital Signs Temp Pulse Pulse Resp BP BP BP 11/28/18 07:43 98.1 F 69 18 106/64 11/28/18 04:00 98.5 F 89 18 132/62 11/28/18 00:00 73 18 11/27/18 23:38 98.4 F 77 18 127/78 11/27/18 19:30 98.5 F 71 18 127/67 11/27/18 16:22 98.1 F 72 18 109/70 11/27/18 15:00 98.0 F 70 18 100/58 11/27/18 14:00 70 18 103/65 11/27/18 13:30 75 20 93/63 11/27/18 12:30 76 18 90/61 11/27/18 12:00 76 18 97/58 11/27/18 11:32 97/58 11/27/18 11:30 76 6 L 81/53 11/27/18 11:20 11/27/18 11:16 98.0 F 76 18 89/60 Pulse Ox 11/28/18 07:43 95 11/28/18 04:00 96 11/28/18 00:00 11/27/18 23:38 98 11/27/18 19:30 95 11/27/18 16:22 99 11/27/18 15:00 97 11/27/18 14:00 97 11/27/18 13:30 98 11/27/18 12:30 98 11/27/18 12:00 96 11/27/18 11:32 11/27/18 11:30 96 11/27/18 11:20 95 11/27/18 11:16 95 Intake and Output 11/27/18 11/28/18 11/28/18 22:59 06:59 14:59 Intake Total 236 Output Total 300 Balance 236 -300 Intake: Oral 236 Output: Urine 300 Other: Voiding Method Toilet Toilet Urinal Urinal # Voids 1 Results 11/27/18 11:30 11/27/18 11:30 Cardiac Enzymes 11/27/18 11/27/18 11/27/18 Range/Units 11:30 11:30 17:00 AST 21 (17-59) U/L Troponin I 0.027 0.022 (0.000-0.034) ng/mL 11/27/18 Range/Units 23:36 AST (17-59) U/L Troponin I 0.020 (0.000-0.034) ng/mL Coagulation 11/27/18 Range/Units 11:30 PT 9.7 (9.0-12.0) sec APTT 22.6 (22.0-30.0) sec Lipids 11/27/18 Range/Units 11:30 Triglycerides 117 (<150) mg/dL Cholesterol 146 (<200) mg/dL HDL Cholesterol 40 (40-60) mg/dL CBC 11/27/18 Range/Units 11:30 WBC 12.7 H (3.8-10.6) k/uL RBC 4.23 L (4.30-5.90) m/uL Hgb 13.1 (13.0-17.5) gm/dL Hct 37.5 L (39.0-53.0) % Plt Count 188 (150-450) k/uL Comprehensive Metabolic Panel 11/27/18 Range/Units 11:30 Sodium 138 (137-145) mmol/L Potassium 3.7 (3.5-5.1) mmol/L Chloride 102 (98-107) mmol/L Carbon Dioxide 25 (22-30) mmol/L BUN 20 (9-20) mg/dL Creatinine 0.81 (0.66-1.25) mg/dL Glucose 176 H (74-99) mg/dL Calcium 9.0 (8.4-10.2) mg/dL AST 21 (17-59) U/L ALT 22 (21-72) U/L Alkaline Phosphatase 51 (38-126) U/L Total Protein 6.0 L (6.3-8.2) g/dL Albumin 3.5 (3.5-5.0) g/dL Current Medications Generic Name Dose Route Start Last Admin Trade Name Freq PRN Reason Stop Dose Admin Acetaminophen 650 mg 11/27/18 15:08 Tylenol Tab PO Q6H PRN Pain Hydrocodone Bitart/Acetaminophen 1 each 11/27/18 15:08 [place] 7.5-325 PO BID PRN Pain Artificial Tears 1 drops 11/27/18 16:00 Artificial Tear Drops BOTH EYES TID PRN Dry Eye Aspirin 81 mg 11/28/18 09:00 Aspirin PO DAILY [facility] Cholecalciferol 1,000 unit 11/27/18 21:00 11/27/18 20:22 Vitamin D3 (25 Mcg = 1000 Iu) PO 1,000 unit HS [facility] Administration Clopidogrel Bisulfate 75 mg 11/28/18 09:00 Plavix PO DAILY [facility] Dicyclomine HCl 10 mg 11/27/18 16:00 11/27/18 23:07 Bentyl PO Not Given TID AALIAYH Gabapentin 300 mg 11/27/18 16:00 11/27/18 23:07 Neurontin PO Not Given TID [facility] Insulin Aspart 0 unit 11/27/18 17:30 11/27/18 20:23 Novolog SQ 4 unit ACHS AALIYAH Administration Protocol Insulin Detemir 25 unit 11/28/18 07:00 Levemir SQ QAM@0700 [facility] Isosorbide Mononitrate 15 mg 11/28/18 09:00 Imdur PO DAILY [facility] Losartan Potassium 25 mg 11/27/18 21:00 11/27/18 20:23 Cozaar PO 25 mg HS [facility] Administration Metoprolol Tartrate 12.5 mg 11/28/18 09:00 Lopressor PO DAILY [facility] Multivitamins 1 each 11/28/18 09:00 Theragran PO DAILY [facility] Nitroglycerin 0.4 mg 11/27/18 15:08 11/27/18 20:28 Nitrostat SUBLINGUAL 0.4 mg Q5M PRN Administration Chest Pain Pravastatin Sodium 40 mg 11/27/18 21:00 11/27/18 20:23 Pravachol PO 40 mg HS [facility]ALIYAH Administration Senna/Docusate Sodium 1 each 11/27/18 21:00 11/27/18 20:22 Senokot-S PO 1 each BID [facility]ALIYAH Administration Tamsulosin HCl 0.4 mg 11/27/18 21:00 11/27/18 20:23 Flomax PO 0.4 mg HS [facility]ALIYAH Administration Tramadol HCl 50 mg 11/27/18 15:08 Ultram PO Q6H PRN Pain Intake and Output 11/27/18 11/28/18 11/28/18 22:59 06:59 14:59 Intake Total 236 Output Total 300 Balance 236 -300 Intake: Oral 236 Output: Urine 300 Other: Voiding Method Toilet Toilet Urinal Urinal # Voids 1 11/27/18 11:30 11/27/18 11:30
[2018-11-28] MEDS ORDERED: ALPRAZolam 0.5 MG TAB PO PRN (14:10)
[2018-11-28] MEDS ORDERED: SODIUM CHLORIDE 0.9% 1,000 ML in EMPTY BAG 1 BAG IV ONE (14:10)
[2018-11-28 16:40] LABS: Glucose,Whole Blood 141 mg/dL (75-99)
[2018-11-28] MEDS: HYDROcodone/APAP 7.5-325MG 1 EACH TAB PO PRN (18:30)
--- NOTE | 2018-11-28 19:21 | P.HPIM ---
History of Present Illness H&P Date: 11/28/18 Chief Complaint: Chest pain History of presenting complaint: This is 78-year-old patient of Dr. Dean Evangelista. Chronic stable medical conditions include diabetes, hyperlipidemia, hypertension, osteoarthritis, obstructive sleep apnea. Patient's previously had coronary bypass. Patient was admitted and discharged from the hospital on September 07 from the hospital. Was then admitted for acute non-Q-wave myocardial infarction. Had a cardiac catheterization was found a significant coronary artery disease. Patient had a stent to the RCA emergently. Also PDA branch of RCA as well as stenting to the saphenous vein graft to the marginal was performed. Patient also required intra-aortic balloon pump and a temporary pacemaker. Subsequently patient had a tumultuous course and admitted to ICU. Patient was on the ventilator. Patient also was then delirious. Patient subsequently was transferred to inpatient rehab. Patient's had chronic abdominal pain on and off. Has been told that he is got strictures. Patient has been at home. Able to get around without cane. Patient not a good historian rather forgetful. Patient was admitted on October 27 with recurrent chest pain. Seen by cardiology and patient was discharged home . Patient was to keep his scheduled later in the month for cardiac catheterization. Upon return home patient started having more chest pains. Readmitted.Patient underwent. angioplasty and stenting . of the distal anastomosis of SVG to left circumflex. Discharged on 11/01/2018. Patient was readmitted on November 17 with chest pain. Patient was observed and discharged home the following day. Patient now admitted after presenting with chest pain. Has had a few episodes at home. His brought him in. Has patient does not remember taking up give more details about the chest pain. Son is about the bedside. Admitted with unstable angina. Patient also found to have nonsustained monomorphic ventricular tachycardia Review of systems: GEN.: Tired, appetite fair EYES: None HEENT: None NECK: None RESPIRATORY: Occasionally short of breath CARDIOVASCULAR: As above GASTROINTESTINAL: Chronic abdominal pain, intermittent GENITOURINARY: None MUSCULOSKELETAL: pain in the joints LYMPHATICS: None HEMATOLOGICAL: None PSYCHIATRY: Forgetful NEUROLOGICAL: Uses a cane Past medical history: Coronary artery disease with coronary stent, diabetes mellitus type 2, hyperlipidemia, primary osteoarthritis, obstructive sleep apnea, chronic bladder outflow obstruction,. Social history: Does not smoke or drink alcohol. . At home Family history: Prostate cancer Physical examination: VITAL SIGNS: 98, 76, 18, 89/60, 95% room air-upon presentation GENERAL: BMI 36, laying in bed awake EYES: Pupils equal. Conjunctiva normal. HEENT: External appearance of nose and ears normal, oral cavity grossly normal. NECK: JVD not raised; masses not palpable. HEART: First and second heart sounds are normal; no edema. LUNGS: Respiratory rate normal; decreased breath sounds. ABDOMEN: Soft, nontender, liver spleen not palpable, no masses palpable. PSYCH: Able to answer simple questions though rather forgetful. NEUROLOGICAL: Cranial nerves grossly intact; no facial asymmetry, power and sensation grossly intact. LYMPHATICS: No lymph nodes palpable in the axilla and neck INVESTIGATIONS, reviewed in the clinical context White count 12.7 hemoglobin 13.1 potassium 3.7 creatinine 0.81 0.027, 0.0-2 EKG tracing personally reviewed by me-right bundle-branch block with LVH. Chest x-ray film personally reviewed by me-some cardiomegaly. Lung johnson are clear Assessment: -Unstable angina in a patient with known coronary artery disease, with recent intervention on the evening of October -Nonsustained monomorphic ventricular tachycardia -Coronary artery disease with severe significant disease to the left main and right coronary artery. With coronary intervention -Diabetes mellitus type 2 chronically on insulin -Hyperlipidemia -Primary osteoarthritis -obstructive. 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 Was followed by Dr. Arroyo -Mild -moderate cognitive impairment -CODE STATUS DO NOT RESUSCITATE from prior admissions Plan: Lopressor was increased to 25 mg daily. Seen by cardiology. Planning to proceed for cardiac catheterization. Care was discussed with the son at the bedside. has gone home. Because of cognitive impairment patient has a slight insight. Past Medical History Past Medical History: Coronary Artery Disease (CAD), Cancer, Diabetes Mellitus, GERD/Reflux, Hyperlipidemia, Hypertension, Memory Impairment, Osteoarthritis (OA), Pneumonia, Prostate Disorder, Sleep Apnea/CPAP/BIPAP Additional Past Medical History / Comment(s): [place] 08/23/[address]/cardiogenic shock/balloon pump/CHB with temporary pacer/thrombocytopenia. 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, IDDM type II, History of Any Multi-Drug Resistant Organisms: MRSA Date of last positivie culture/infection: 08/30/18 MDRO Source:: Sputum Past Surgical History: Appendectomy, Back Surgery, Cholecystectomy, Coronary Bypass/CABG, Heart Catheterization, Heart Catheterization With Stent, Hernia Repair, Joint Replacement, Orthopedic Surgery Additional Past Surgical History / Comment(s): 08/23/18 PCI with stent to RCA, cardiac caths, 2008 CABG 3 vessels, inguinal and incisional hernia repairs, triple incisional hernia repair/lysis of adhesions, multiple surgeries for abdominal adhessions, fatty tumors removed posterior neck, ORIF R ankle/R tib fib, total L knee arthroplasty, L rotator cuff repair, bilateral carpal tunne releases, colonoscopies/bening polyp, EGDs. Past Anesthesia/Blood Transfusion Reactions: No Reported Reaction Date of Last Stent Placement:: 08/23/18 Past Psychological History: Anxiety Additional Psychological History / Comment(s): Pt resides with his spouse. He uses a cane to ambulate. He has not been driving recently d/t health reasons. His spouse and family drive him to [place]. Smoking Status: Never smoker Past Alcohol Use History: None Reported Past Drug Use History: None Reported - Past Family History Father History Unknown: Yes Family Medical History: Cancer Additional Family Medical History / Comment(s): PROSTATE CANCER Son(s) Family Medical History: Cancer Additional Family Medical History / Comment(s): TESTICULAR CANCER Mother Family Medical History: Coronary Artery Disease (CAD), Hypertension Sister(s) Family Medical History: Cancer Medications and Allergies Home Medications Medication Instructions Recorded Confirmed Type Cholecalciferol [Vitamin D3 (25 1,000 unit PO HS 07/14/15 11/27/18 History Mcg = 1000 Iu)] Tamsulosin [Flomax] 0.4 mg PO HS 07/14/17 11/27/18 History Pravastatin Sodium [Pravachol] 40 mg PO HS 08/03/17 11/27/18 History Multivitamins, Thera [Multivitamin 1 tab PO DAILY 07/04/18 11/27/18 History (formulary)] Aspirin 81 mg PO DAILY chew 09/06/18 11/27/18 Rx Clopidogrel [Plavix] 75 mg PO DAILY tab 09/06/18 11/27/18 Rx Insulin Glargine [Lantus] 25 unit SQ QAM #0 09/06/18 11/27/18 Rx Artificial Tears-Hypromellose 1 drops BOTH EYES TID 09/11/18 11/27/18 History [Artificial Tear Drops] traMADol HCL [Ultram] 50 mg PO Q6H PRN #12 tablet 09/13/18 11/27/18 Rx Acetaminophen Tab [Tylenol] 650 mg PO Q6H PRN 09/14/18 11/27/18 History Dicyclomine [Bentyl] 10 mg PO TID 09/14/18 11/27/18 History INSULIN LISPRO (humaLOG) [humaLOG] See Protocol SQ ACHS 09/14/18 11/27/18 History Hydrocodone/Acetaminophen [[place] 1 tab PO BID PRN 10/27/18 11/27/18 History 7.5-325] Metoprolol Tartrate [Lopressor] 12.5 mg PO DAILY 10/27/18 11/27/18 History Sennosides-Docusate Sodium 1 tab PO BID 10/27/18 11/27/18 History [Senokot-S] Nitroglycerin Sl Tabs [Nitrostat] 0.4 mg SUBLINGUAL Q5M PRN #30 tab 11/02/18 11/27/18 Rx Losartan [Cozaar] 25 mg PO HS 11/17/18 11/27/18 History Gabapentin [Neurontin] 300 mg PO TID 11/27/18 11/27/18 History Isosorbide Mononitrate ER [Imdur] 15 mg PO DAILY 11/27/18 11/27/18 History Allergies Allergy/AdvReac Type Severity Reaction Status Date / Time Iodinated Contrast Media Allergy Rash/Hives Verified 11/27/18 11:31 iodine Allergy Rash/Hives Verified 11/27/18 11:31 Penicillins Allergy Swelling Verified 11/27/18 11:31 duloxetine [From Cymbalta] AdvReac PRICKLY Verified 11/27/18 11:31 FEELING IN HEAD povidone-iodine AdvReac Itchy,red Verified 11/27/18 11:31 [From Betadine] skin soap [From Betadine] AdvReac Itchy,red Verified 11/27/18 11:31 skin Surgical Scrub AdvReac Unknown Itching, Uncoded 11/17/18 07:35 Red skin Physical Exam Vitals: Vital Signs Temp Pulse Pulse Resp BP BP BP 11/28/18 07:43 98.1 F 69 18 106/64 11/28/18 04:00 98.5 F 89 18 132/62 11/28/18 00:00 73 18 11/27/18 23:38 98.4 F 77 18 127/78 11/27/18 19:30 98.5 F 71 18 127/67 11/27/18 16:22 98.1 F 72 18 109/70 11/27/18 15:00 98.0 F 70 18 100/58 11/27/18 14:00 70 18 103/65 11/27/18 13:30 75 20 93/63 11/27/18 12:30 76 18 90/61 11/27/18 12:00 76 18 97/58 11/27/18 11:32 97/58 11/27/18 11:30 76 6 L 81/53 11/27/18 11:20 11/27/18 11:16 98.0 F 76 18 89/60 Pulse Ox 11/28/18 07:43 95 11/28/18 04:00 96 11/28/18 00:00 11/27/18 23:38 98 11/27/18 19:30 95 11/27/18 16:22 99 11/27/18 15:00 97 11/27/18 14:00 97 11/27/18 13:30 98 11/27/18 12:30 98 11/27/18 12:00 96 11/27/18 11:32 11/27/18 11:30 96 11/27/18 11:20 95 11/27/18 11:16 95 Intake and Output 11/27/18 11/28/18 11/28/18 22:59 06:59 14:59 Intake Total 236 Output Total 300 Balance 236 -300 Intake: Oral 236 Output: Urine 300 Other: Voiding Method Toilet Toilet Toilet Urinal Urinal Urinal # Voids 1 Results CBC & Chem 7: 11/27/18 11:30 11/27/18 11:30 Labs: Abnormal Lab Results - Last 24 Hours (Table) 11/27/18 11/27/18 11/27/18 Range/Units 11:30 11:30 16:28 WBC 12.7 H (3.8-10.6) k/uL RBC 4.23 L (4.30-5.90) m/uL Hct 37.5 L (39.0-53.0) % Neutrophils # 9.6 H (1.3-7.7) k/uL Monocytes # 1.1 H (0-1.0) k/uL Glucose 176 H (74-99) mg/dL POC Glucose (mg/dL) 172 H (75-99) mg/dL Magnesium 1.5 L (1.6-2.3) mg/dL Creatine Kinase 46 L (55-170) U/L Total Protein 6.0 L (6.3-8.2) g/dL Lipase 16 L (23-300) U/L 11/27/18 11/28/18 Range/Units 20:03 06:31 WBC (3.8-10.6) k/uL RBC (4.30-5.90) m/uL Hct (39.0-53.0) % Neutrophils # (1.3-7.7) k/uL Monocytes # (0-1.0) k/uL Glucose (74-99) mg/dL POC Glucose (mg/dL) 211 H 115 H (75-99) mg/dL Magnesium (1.6-2.3) mg/dL Creatine Kinase (55-170) U/L Total Protein (6.3-8.2) g/dL Lipase (23-300) U/L Thrombosis Risk Factor Assmnt - Choose All That Apply Any of the Below Risk Factors Present?: Yes Each Factor Represents 1 point: Obesity (BMI >25) Other Risk Factors: Yes Each Risk Factor Represents 3 Points: Age 75 years or older Other congenital or acquired thrombophilia - If yes, enter type in comment: No Thrombosis Risk Factor Assessment Total Risk Factor Score: 4 Thrombosis Risk Factor Assessment Level: Moderate Risk
[2018-11-28 20:08] LABS: Glucose,Whole Blood 195 mg/dL (75-99)
[2018-11-28] MEDS: traMADol 50 MG TAB PO PRN (20:26)
[2018-11-28] MEDS: CHOLECALCIFEROL 1,000 UNIT TAB PO SCH (20:27)
[2018-11-28] MEDS: TAMSULOSIN 0.4 MG CAP.ER.24H PO SCH (20:27)
[2018-11-28] MEDS: PRAVASTATIN SODIUM 40 MG TAB PO SCH (20:27)
[2018-11-28] MEDS: LOSARTAN 25 MG TAB PO SCH (20:27)
[2018-11-29] MEDS: NITROGLYCERIN SL TABS 0.4 MG TAB SUBLINGUAL PRN ×4 (00:50→22:22)
[2018-11-29] MEDS: HYDROcodone/APAP 7.5-325MG 1 EACH TAB PO PRN ×2 (03:37→21:06)
[2018-11-29] MEDS: ALPRAZolam 0.25 MG TAB PO PRN ×2 (04:43→22:44)
[2018-11-29] MEDS ORDERED: ASPIRIN 325 MG TAB PO ONE (06:00)
[2018-11-29 06:30] LABS: Glucose,Whole Blood 104 mg/dL (75-99)
[2018-11-29] MEDS: SENNOSIDES-DOCUSATE SODIUM 1 EACH TAB PO SCH ×2 (06:38→21:06)
[2018-11-29] MEDS: INSULIN DETEMIR (LEVEMIR) 100 UNIT/ML SYR SQ SCH (06:38)
[2018-11-29] MEDS: INSULIN ASPART (NovoLOG) 100 UNIT/ML VIAL SQ SCH ×4 (06:38→21:06)
[2018-11-29] MEDS: ISOSORBIDE MONONITRATE ER 15 MG TAB PO SCH (06:47)
[2018-11-29] MEDS: DICYCLOMINE 10 MG CAP PO SCH ×3 (06:47→21:06)
[2018-11-29] MEDS: CLOPIDOGREL 75 MG TAB PO SCH (06:48)
[2018-11-29] MEDS: METOPROLOL TARTRATE 25 MG TAB PO SCH (06:48)
[2018-11-29] MEDS: GABAPENTIN 300 MG CAP PO SCH ×3 (06:49→21:06)
[2018-11-29] MEDS: MULTIVITAMINS, THERA 1 EACH TAB PO SCH (06:49)
[2018-11-29 07:23] LABS: ALT 24 U/L (21-72); AST 21 U/L (17-59); African American GFR (CKD) >90 (>60 ml/min/1.73 sqM); Alkaline Phosphatase 44 U/L (38-126); Anion Gap 6 mmol/L; Blood Urea Nitrogen 23 mg/dL (9-20); Calcium 8.7 mg/dL (8.4-10.2); Carbon Dioxide 28 mmol/L (22-30); Chloride 108 mmol/L (98-107); Glucose 99 mg/dL (74-99); Magnesium 1.8 mg/dL (1.6-2.3); Sodium 142 mmol/L (137-145); Total Bilirubin 0.3 mg/dL (0.2-1.3); Total Protein 5.5 g/dL (6.3-8.2)
[2018-11-29] MEDS ORDERED: LIDOCAINE 1% INJ 10MG/ML (20 ML MDV) ONE (07:42)
[2018-11-29] MEDS ORDERED: fentaNYL (PF) 50 MCG/ML 2 ML AMP ONE (07:54)
[2018-11-29] MEDS ORDERED: diphenhydrAMINE 50 MG/ML 1 ML VIAL ONE (08:02)
[2018-11-29] MEDS ORDERED: methylPREDNISolone SOD SUCCI 125 MG/2 ML VIAL ONE (08:03)
[2018-11-29] MEDS ORDERED: diphenhydrAMINE 50 MG/ML 1 ML VIAL IVP ONE (08:04)
[2018-11-29] MEDS ORDERED: methylPREDNISolone SOD SUCCI 125 MG/2 ML VIAL IV ONE (08:04)
[2018-11-29] MEDS ORDERED: fentaNYL (PF) 50 MCG/ML 2 ML AMP IV ONE (08:04)
[2018-11-29] MEDS ORDERED: LIDOCAINE 1% INJ 10MG/ML (20 ML MDV) SQ ONE (08:04)
[2018-11-29] MEDS ORDERED: IV FLUID CONTINUATION 400 ML IV ONE (08:05)
[2018-11-29] MEDS ORDERED: IOPAMIDOL-300 100ML BTL INJ ONE (08:44)
[2018-11-29] MEDS ORDERED: IOPAMIDOL-370 125ML BTL INJ ONE (08:44)
[2018-11-29] MEDS ORDERED: ASPIRIN 81 MG PO SCH (09:00)
[2018-11-29] MEDS ORDERED: RX INFO: IV CONTRAST WAS GIVEN 1 EACH MISC MISCELLANE PRN (09:10)
[2018-11-29] MEDS: SODIUM CHLORIDE 0.9% 1,000 ML IV SCH ×2 (10:09→21:11)
[2018-11-29] MEDS ORDERED: AMIODARONE 360 MG in DEXTROSE 5% IN WATER 200 ML IV ONE ×2 (11:25)
[2018-11-29] MEDS ORDERED: DEXTROSE 5% IN WATER 100 ML with AMIODARONE 150 MG IV ONE (11:25)
[2018-11-29 11:53] LABS: Glucose,Whole Blood 194 mg/dL (75-99)
--- NOTE | 2018-11-29 12:46 | ECHOF ---
Referral Reason:lv function MEASUREMENTS -------- HEIGHT: 170.2 cm WEIGHT: 104.3 kg BP: 106/64 IVSd: 1.4 cm (0.6 - 1.1) LVIDd: 4.7 cm (3.9 - 5.3) LVPWd: 1.2 cm (0.6 - 1.1) IVSs: 1.7 cm LVIDs: 4.1 cm LVPWs: 1.6 cm LA Diam: 3.2 cm (2.7 - 3.8) Ao Diam: 3.8 cm (2.0 - 3.7) AV Cusp: 1.9 cm (1.5 - 2.6) TAPSE: 11.32 mm FINDINGS -------- This was a technically adequate study. The left ventricular size is normal. There is moderate concentric left ventricular hypertrophy. O verall left ventricular systolic function is moderately impaired with, an EF between 35 - 40 %. Dif ficult to estimate EF because of run of ventricular tachycardia Basal inferior LV wall motion is hyp okinetic. Basal septal wall hypokinesis. Infero lateral wall hypokinesis There is no pericardial effusion. 5 ml of Lumason was utilized for enhancement of images. CONCLUSIONS -------- 1. This was a technically adequate study. 2. The left ventricular size is normal. 3. There is moderate concentric left ventricular hypertrophy. 4. Overall left ventricular systolic function is moderately impaired with, an EF between 35 - 40 %. 5. Difficult to estimate EF because of run of ventricular tachycardia 6. Basal inferior LV wall motion is hypokinetic. 7. Basal septal wall hypokinesis. 8. Infero lateral wall hypokinesis 9. 5 ml of Lumason was utilized for enhancement of images. 10. There is no pericardial effusion. INSULATION BOARD BACK TENDER: Jennifer Guzman RD
[2018-11-29 17:07] LABS: Glucose,Whole Blood 357 mg/dL (75-99)
--- NOTE | 2018-11-29 18:36 | P.CARDCATH ---
Date of Procedure: 11/29/18 Preoperative Diagnosis: Chest pain. Ischemic heart disease and nonsustained V. tach Postoperative Diagnosis: Stable coronary artery disease with impaired LV function Description of Procedure: HISTORY: This is a 78-year-old gentleman with history of ischemic heart disease with previous bypass surgery who has had several stent placement including right coronary artery and also vein graft to the circumflex. He is admitted to the hospital with repeated episodes of chest pain. Patient also having nonsustained V. tach. Patient was evaluated by Dr. VC Alcantar and was advised to have cardiac catheterization. Patient and family were fully aware of the risks and benefits of the procedure CONSENT: It was discussed the risks, benefits and alternative therapies for the above-mentioned procedure and for both sedation/analgesia as well as necessary blood product administration, if indicated, as they pertain to this patient. The patient and family have understanding and acceptance of the risks and procedures discussed. PROCEDURE: Patient was brought to the lab in a fasting state. Patient was given some IV sedation. The right groin is infiltrated with lidocaine and left femoral artery was entered using Seldinger technique. A 6-Georgian catheter was left in place and selective coronary arteriography and left ventriculography was performed. Patient tolerated the procedure well. Femoral angiogram was performed and Angio-Seal was applied for hemostasis. No immediate complications were noted and patient was transferred to [facility] in a stable condition Conscious Sedation: Fentanyl 12.5 g Duration 28minutes HEMODYNAMICS: The aortic pressure is about 140/70. Left ventricular end- diastolic pressure is about 12-15. There was no gradient across the aortic valve SELECTIVE CORONARY ARTERIOGRAPHY: LEFT MAIN: This is totally occluded in the distal portion. This is a good caliber vessel THE LEFT ANTERIOR DESCENDING CORONARY ARTERY:. Total occluded at the proximal portion THE LEFT CIRCUMFLEX AND IS CORONARY ARTERY:. Total occluded in the proximal portion THE RIGHT CORONARY ARTERY:. This is a good caliber vessel. Patent stent in the distal portion. There is diffuse disease involving the distal branches of the PDA and PLV with about 70-80% stenosis. However this disease is stable compared to the previous studies. There is acute marginal branch and also has a long stenosis with 90% stent placement narrowing. THE VEIN GRAFT TO THE CIRCUMFLEX. This graft is good in size and patent at the proximal stented area and also in the stented area near the distal anastomosis. The circumflex beyond the insertion appears to be free of any significant focal occlusive disease but diffuse plaque is present. THE GAVIRIA GRAFT TO THE LAD: This is patent at the proximal and distal anastomosis and throat its length. The LAD beyond the anastomosis appears to be free of any significant occlusive disease LEFT VENTRICULOGRAPHY:. This revealed mildly enlarged left ventricle with hypokinesis of the anteroapical area with ejection fraction about 30-35% FINAL IMPRESSION:. Stable coronary artery disease with patent stents in the vein graft to the OM and also in the distal right coronary artery. There is diffuse but significant disease involving the PLV and PDA branches. The left main is totally occluded. The GAVIRIA graft to LAD is patent. The vein graft to the OM is patent both at the proximal stented area and also distal stented area. PLAN: Films were reviewed both with the JAYLON Taylor and also with Dr. Garner. Because of the diffuse disease and small nature of the PDA and PLV branches, maximum medical therapy is recommended. Patient will be started on IV amiodarone for control of his arrhythmias. Electrophysiology consult will be obtained PROGNOSIS: Guarded
[2018-11-29] MEDS: AMIODARONE 300 MG in DEXTROSE 5% IN WATER 250 ML IV SCH ×2 (19:32)
[2018-11-29 20:13] LABS: Glucose,Whole Blood 352 mg/dL (75-99)
[2018-11-29] MEDS: PRAVASTATIN SODIUM 40 MG TAB PO SCH (21:06)
[2018-11-29] MEDS: CHOLECALCIFEROL 1,000 UNIT TAB PO SCH (21:06)
[2018-11-29] MEDS: TAMSULOSIN 0.4 MG CAP.ER.24H PO SCH (21:06)
[2018-11-29] MEDS: LOSARTAN 25 MG TAB PO SCH (21:06)
--- NOTE | 2018-11-29 21:40 | P.PN ---
Progress Note - Text Progress Note Date: 11/29/18 Chief Complaint: Chest pain History of presenting complaint: This is 78-year-old patient of Dr. Dean Evangelista. Chronic stable medical conditions include diabetes, hyperlipidemia, hypertension, osteoarthritis, obstructive sleep apnea. Patient's previously had coronary bypass. Patient was admitted and discharged from the hospital on September 07 from the hospital. Was then admitted for acute non-Q-wave myocardial infarction. Had a cardiac catheterization was found a significant coronary artery disease. Patient had a stent to the RCA emergently. Also PDA branch of RCA as well as stenting to the saphenous vein graft to the marginal was performed. Patient also required intra-aortic balloon pump and a temporary pacemaker. Subsequently patient had a tumultuous course and admitted to ICU. Patient was on the ventilator. Patient also was then delirious. Patient subsequently was transferred to inpatient rehab. Patient's had chronic abdominal pain on and off. Has been told that he is got strictures. Patient has been at home. Able to get around without cane. Patient not a good historian rather forgetful. Patient was admitted on October 27 with recurrent chest pain. Seen by cardiology and patient was discharged home . Patient was to keep his scheduled later in the month for cardiac catheterization. Upon return home patient started having more chest pains. Readmitted.Patient underwent. angioplasty and stenting . of the distal anastomosis of SVG to left circumflex. Discharged on 11/01/2018. Patient was readmitted on November 17 with chest pain. Patient was observed and discharged home the following day. Patient now admitted after presenting with chest pain. Has had a few episodes at home. His brought him in. Has patient does not remember taking up give more details about the chest pain.. Admitted with unstable angina. Patient also found to have nonsustained monomorphic ventricular tachycardia. Today-underwent cardiac catheterization. Details and Dr. Moreno's report. Not feeling any further intervention. To be managed medically. Review of systems: Was done for constitutional, cardiovascular, GI, pulmonary. relevant finding as above Active Medications Acetaminophen (Tylenol Tab) 650 mg PO Q6H PRN PRN Reason: Pain Hydrocodone Bitart/Acetaminophen ([place] 7.5-325) 1 each PO BID PRN PRN Reason: Pain Last Admin: 11/29/18 21:06 Dose: 1 each Documented by: Alprazolam (Xanax) 0.25 mg PO Q6HR PRN PRN Reason: Mild Anxiety Last Admin: 11/29/18 04:43 Dose: 0.25 mg Documented by: Alprazolam (Xanax) 0.5 mg PO Q6HR PRN PRN Reason: Moderate Anxiety Artificial Tears (Artificial Tear Drops) 1 drops BOTH EYES TID PRN PRN Reason: Dry Eye Aspirin (Aspirin) 81 mg PO DAILY [facility] Cholecalciferol (Vitamin D3 (25 Mcg = 1000 Iu)) 1,000 unit PO [facility] Last Admin: 11/29/18 21:06 Dose: 1,000 unit Documented by: Clopidogrel Bisulfate (Plavix) 75 mg PO DAILY [facility] Last Admin: 11/29/18 06:48 Dose: 75 mg Documented by: Dicyclomine HCl (Bentyl) 10 mg PO TID [facility] Last Admin: 11/29/18 21:06 Dose: 10 mg Documented by: Gabapentin (Neurontin) 300 mg PO TID [facility] Last Admin: 11/29/18 21:06 Dose: 300 mg Documented by: Sodium Chloride (Saline 0.9%) 1,000 mls @ 75 mls/hr IV .[id number] [facility] Last Admin: 11/29/18 21:11 Dose: 75 mls/hr Documented by: Amiodarone HCl 300 mg/ (Dextrose/Water) 250 mls @ 25 mls/hr IV .Q10H [facility]; Protocol Stop: 11/30/18 11:24 Last Admin: 11/29/18 19:32 Dose: 0.5 mg/min, 25 mls/hr Documented by: Insulin Aspart (Novolog) 0 unit SQ ACHS [facility]; Protocol Last Admin: 11/29/18 21:06 Dose: 10 unit Documented by: Insulin Detemir (Levemir) 25 unit SQ QAM@0700 [facility] Last Admin: 11/29/18 06:38 Dose: Not Given Documented by: Isosorbide Mononitrate (Imdur) 15 mg PO DAILY [facility] Last Admin: 11/29/18 06:47 Dose: 15 mg Documented by: Losartan Potassium (Cozaar) 25 mg PO HS [facility] Last Admin: 11/29/18 21:06 Dose: 25 mg Documented by: Metoprolol Tartrate (Lopressor) 25 mg PO DAILY [facility] Last Admin: 11/29/18 06:48 Dose: 25 mg Documented by: Miscellaneous Information (Rx Info: Iv Contrast Was Given) 1 each MISCELLANE DAILY PRN PRN Reason: Per Protocol Stop: 12/01/18 09:11 Multivitamins (Theragran) 1 each PO DAILY [facility] Last Admin: 11/29/18 06:49 Dose: 1 each Documented by: Nitroglycerin (Nitrostat) 0.4 mg SUBLINGUAL Q5M PRN PRN Reason: Chest Pain Last Admin: 11/29/18 03:27 Dose: 0.4 mg Documented by: Pravastatin Sodium (Pravachol) 40 mg PO HS [facility] Last Admin: 11/29/18 21:06 Dose: 40 mg Documented by: Senna/Docusate Sodium (Senokot-S) 1 each PO BID [facility] Last Admin: 11/29/18 21:06 Dose: 1 each Documented by: Tamsulosin HCl (Flomax) 0.4 mg PO [facility] Last Admin: 11/29/18 21:06 Dose: 0.4 mg Documented by: Tramadol HCl (Ultram) 50 mg PO Q6H PRN PRN Reason: Pain Last Admin: 11/28/18 20:26 Dose: 50 mg Documented by: Physical examination: VITAL SIGNS: 98.2, 18, 70, 139/72, 95% room air GENERAL: Laying in bed, awake, comfortable EYES: Pupils equal. Conjunctiva normal. HEENT: External appearance of nose and ears normal, oral cavity grossly normal. NECK: JVD not raised; masses not palpable. HEART: First and second heart sounds are normal; no edema. LUNGS: Respiratory rate normal; decreased breath sounds. ABDOMEN: Soft, nontender, liver spleen not palpable, no masses palpable. PSYCH: Able to answer simple questions though rather forgetful. INVESTIGATIONS, reviewed in the clinical context Potassium 4 creatinine 0.77 EKG tracing personally reviewed by me-right bundle-branch block with LVH. Chest x-ray film personally reviewed by me-some cardiomegaly. Lung johnson are clear Assessment: -Unstable angina in a patient with known coronary artery disease,. -Nonsustained monomorphic ventricular tachycardia -Coronary artery disease with severe significant disease to the left main and right coronary artery. -Diabetes mellitus type 2 chronically on insulin -Hyperlipidemia -Primary osteoarthritis -obstructive. 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 Was followed by Dr. Arroyo -Mild -moderate cognitive impairment -CODE STATUS DO NOT RESUSCITATE from prior admissions Plan: Status post cardiac catheterization. Not feeling any further intervention. Did get IV amiodarone. We'll increase the dose of Imdur ER to 30 mg a day. Follow with cardiology. Spoke to the son of the bedside.
--- NOTE | 2018-11-29 23:27 | PN ---
PROGRESS NOTE Mr. Vega is in sinus rhythm with frequent PVCs. He had a cardiac cath by Dr. Moreno, which revealed that the stented segment and circumflex and distal RCA were patent but the branches of RCA have diffuse disease for which I believe medical therapy is the best approach. He is comfortable, resting. No major symptoms, but patient is not very communicative, has issues with dementia and memory. Vital signs are stable. S1-S2 heard normally. Short systolic murmur noted. Lungs revealed decent air entry. Abdomen and lower extremity exam unchanged. Plan is to continue current medication, but for his ventricular ectopy, we will try amiodarone and see how he does. Prognosis remains guarded in this patient with multiple comorbid conditions. MMODL / IJN: [id number] /
[2018-11-30] MEDS: HYDROcodone/APAP 7.5-325MG 1 EACH TAB PO PRN ×2 (04:09→14:30)
[2018-11-30 06:44] LABS: Glucose,Whole Blood 260 mg/dL (75-99)
[2018-11-30] MEDS: INSULIN ASPART (NovoLOG) 100 UNIT/ML VIAL SQ SCH ×4 (06:50→21:08)
[2018-11-30] MEDS: INSULIN DETEMIR (LEVEMIR) 100 UNIT/ML SYR SQ SCH (06:50)
[2018-11-30] MEDS: NITROGLYCERIN SL TABS 0.4 MG TAB SUBLINGUAL PRN ×2 (08:10→08:16)
[2018-11-30] MEDS: ASPIRIN 81 MG PO SCH (08:51)
[2018-11-30] MEDS: DICYCLOMINE 10 MG CAP PO SCH ×3 (08:52→21:07)
[2018-11-30] MEDS: CLOPIDOGREL 75 MG TAB PO SCH (08:52)
[2018-11-30] MEDS: GABAPENTIN 300 MG CAP PO SCH ×3 (08:52→21:07)
[2018-11-30] MEDS: METOPROLOL TARTRATE 25 MG TAB PO SCH ×2 (08:53→21:07)
[2018-11-30] MEDS: SENNOSIDES-DOCUSATE SODIUM 1 EACH TAB PO SCH ×2 (08:54→21:07)
[2018-11-30] MEDS: MULTIVITAMINS, THERA 1 EACH TAB PO SCH (08:54)
[2018-11-30] MEDS ORDERED: ISOSORBIDE MONONITRATE ER 30 MG TAB.ER.24H PO SCH (09:00)
[2018-11-30 10:08] LABS: African American GFR (CKD) >90 (>60 ml/min/1.73 sqM); Anion Gap 8 mmol/L; Blood Urea Nitrogen 16 mg/dL (9-20); Calcium 8.8 mg/dL (8.4-10.2); Carbon Dioxide 24 mmol/L (22-30); Chloride 108 mmol/L (98-107); Glucose 289 mg/dL (74-99); Magnesium 1.7 mg/dL (1.6-2.3); Potassium 4.2 mmol/L (3.5-5.1); Sodium 140 mmol/L (137-145)
[2018-11-30] MEDS: MAGNESIUM SULFATE-D5W PMX 1 GM in DEXTROSE/WATER 1 100ML.BAG IVPB SCH ×2 (10:21→12:30)
[2018-11-30] MEDS: AMIODARONE 300 MG in DEXTROSE 5% IN WATER 250 ML IV SCH ×2 (10:59)
[2018-11-30] MEDS: traMADol 50 MG TAB PO PRN (11:00)
[2018-11-30 12:05] LABS: Glucose,Whole Blood 280 mg/dL (75-99)
--- NOTE | 2018-11-30 12:34 | P.CRDCN ---
History of Present Illness History of present illness: This is Hortencia Grimm PA-C dictating an EP consult on this patient The patient was interviewed and examined by me as well as by Dr. Eubanks Case discussed with Dr. 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, associated dizziness and palpitations Recurrent angina relieved with nitroglycerin CAD status post CABG and recent multiple stent placement, recent angiogram showing patent vein grafts and stents, diffuse disease involving PLV and PDA Conduction system disease, right bundle branch block and left anterior fascicular block Ischemic cardiomyopathy, most recent echo showing EF 35-40% Hypertension Dyslipidemia Diabetes Dementia PLAN: Convert to oral amiodarone once IV amiodarone this completed Amiodarone 400 mg twice a day for 2 weeks, then amiodarone 400 mg daily for a month, then 200 mg daily thereafter Detailed discussion with the family regarding options, discussed pros and cons of medical treatment versus ICD placement Family verbalized their understanding of their options as well as the pros and cons and would like to pursue medical treatment at this time, they will let us know if they change their mind Maximize beta blockers as tolerated HPI Patient is an 78-year-old male with a past medical history of CAD status post CABG and recent stent placement, hypertension, dyslipidemia, dementia, diabetes, and ischemic cardiomyopathy presented with complaints of chest discomfort. Patient is a poor historian, his history was obtained from his and the chart. Over the last few months he has had several episodes of palpitations with accompanying dizziness. He has not had any episodes of syncope or recent falls. He gets intermittent chest discomfort which typically resolves with one or 2 nitroglycerin. He has also been short of breath on exertion. Upon pr esentation to the hospital, his EKG revealed sinus mechanism with a right bundle branch block and left anterior fascicular block. Cardiac enzymes were negative. He underwent coronary angiogram which showed patent stents in the vein graft to the OM and distal RCA, diffuse significant disease involving the PLV and PDA branches, left main totally occluded, GAVIRIA graft to LAD patent, vein graft to OM patent, proximal and distal stents patent. During his admission he has had several episodes of recurrent long nonsustained metamorphic monomorphic ventricular tachycardia. He was started on IV amiodarone. Patient seen and examined resting comfortably in bed. Denies any complaints, no chest pain or shortness of breath. No dizziness or lightheadedness. ROS: Unable to obtain reliable ROS secondary to patient is a poor historian EXAMINATION: Temperature 90.8F, pulse 67, respirations 18, blood pressure 133/88, oxygen saturation 95% on room patient seen and examined resting comfortably in bed, lying flat, in no acute distress Lungs are clear to auscultation bilaterally, no wheezing, rhonchi or crackles Heart is slightly irregular, likely PVCs, normal S1-S2, no murmurs noted No elevated JVD No lower extremity edema Abdomen soft and nontender to palpation REVIEW OF LABS, ECG & MEDICAL DATA Echo showed LV systolic function moderately impaired, EF 35-40%, basal inferior LV hypokinesis, basal septal hypokinesis, inferior lateral hypokinesis WBC 12.7, hemoglobin 13.1, platelets 188, potassium 4.2, BUN 16, creatinine 0.62, magnesium 1.7 LDL 83 Past Medical History Past Medical History: Coronary Artery Disease (CAD), Cancer, Diabetes Mellitus, GERD/Reflux, Hyperlipidemia, Hypertension, Memory Impairment, Osteoarthritis (OA), Pneumonia, Prostate Disorder, Sleep Apnea/CPAP/BIPAP Additional Past Medical History / Comment(s): HI 08/23/[address]/cardiogenic shock/balloon pump/CHB with temporary pacer/thrombocytopenia. 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, IDDM type II, History of Any Multi-Drug Resistant Organisms: MRSA Date of last positivie culture/infection: 08/30/18 MDRO Source:: Sputum Past Surgical History: Appendectomy, Back Surgery, Cholecystectomy, Coronary Bypass/CABG, Heart Catheterization, Heart Catheterization With Stent, Hernia R epair, Joint Replacement, Orthopedic Surgery Additional Past Surgical History / Comment(s): 08/23/18 PCI with stent to RCA, cardiac caths, 2008 CABG 3 vessels, inguinal and incisional hernia repairs, triple incisional hernia repair/lysis of adhesions, multiple surgeries for a bdominal adhessions, fatty tumors removed posterior neck, ORIF R ankle/R tib fib, total L knee arthroplasty, L rotator cuff repair, bilateral carpal tunne releases, colonoscopies/bening polyp, EGDs. Past Anesthesia/Blood Transfusion Reactions: No Reported Reaction Date of Last Stent Placement:: 08/23/18 Past Psychological History: Anxiety Additional Psychological History / Comment(s): Pt resides with his spouse. He uses a cane to ambulate. He has not been driving recently d/t health reasons. His spouse and family drive him to [employer]. Smoking Status: Never smoker Past Alcohol Use History: None Reported Past Drug Use History: None Reported - Past Family History Father History Unknown: Yes Family Medical History: Cancer Additional Family Medical History / Comment(s): PROSTATE CANCER Son(s) Family Medical History: Cancer Additional Family Medical History / Comment(s): TESTICULAR CANCER Mother Family Medical History: Coronary Artery Disease (CAD), Hypertension Sister(s) Family Medical History: Cancer Medications and Allergies Home Medications Medication Instructions Recorded Confirmed Type Cholecalciferol [Vitamin D3 (25 1,000 unit PO HS 07/14/15 11/27/18 History Mcg = 1000 Iu)] Tamsulosin [Flomax] 0.4 mg PO HS 07/14/17 11/27/18 History Pravastatin Sodium [Pravachol] 40 mg PO HS 08/03/17 11/27/18 History Multivitamins, Thera [Multivitamin 1 tab PO DAILY 07/04/18 11/27/18 History (formulary)] Aspirin 81 mg PO DAILY chew 09/06/18 11/27/18 Rx Clopidogrel [Plavix] 75 mg PO DAILY tab 09/06/18 11/27/18 Rx Insulin Glargine [Lantus] 25 unit SQ QAM #0 09/06/18 11/27/18 Rx Artificial Tears-Hypromellose 1 drops BOTH EYES TID 09/11/18 11/27/18 History [Artificial Tear Drops] traMADol HCL [Ultram] 50 mg PO Q6H PRN #12 tablet 09/13/18 11/27/18 Rx Acetaminophen Tab [Tylenol] 650 mg PO Q6H PRN 09/14/18 11/27/18 History Dicyclomine [Bentyl] 10 mg PO TID 09/14/18 11/27/18 History INSULIN LISPRO (humaLOG) [humaLOG] See Protocol SQ ACHS 09/14/18 11/27/18 History Hydrocodone/Acetaminophen [Reva 1 tab PO BID PRN 10/27/18 11/27/18 History 7.5-325] Metoprolol Tartrate [Lopressor] 12.5 mg PO DAILY 10/27/18 11/27/18 History Sennosides-Docusate Sodium 1 tab PO BID 10/27/18 11/27/18 History [Senokot-S] Nitroglycerin Sl Tabs [Nitrostat] 0.4 mg SUBLINGUAL Q5M PRN #30 tab 11/02/18 11/27/18 Rx Losartan [Cozaar] 25 mg PO HS 11/17/18 11/27/18 History Gabapentin [Neurontin] 300 mg PO TID 11/27/18 11/27/18 History Isosorbide Mononitrate ER [Imdur] 15 mg PO DAILY 11/27/18 11/27/18 History Allergies Allergy/AdvReac Type Severity Reaction Status Date / Time Iodinated Contrast Media Allergy Rash/Hives Verified 11/27/18 11:31 iodine Allergy Rash/Hives Verified 11/27/18 11:31 Penicillins Allergy Swelling Verified 11/27/18 11:31 duloxetine [From Cymbalta] AdvReac PRICKLY Verified 11/27/18 11:31 FEELING IN HEAD povidone-iodine AdvReac Itchy,red Verified 11/27/18 11:31 [From Betadine] skin soap [From Betadine] AdvReac Itchy,red Verified 11/27/18 11:31 skin Surgical Scrub AdvReac Unknown Itching, Uncoded 11/17/18 07:35 Red skin Physical Exam Vitals: Vital Signs Temp Pulse Resp BP Pulse Ox 11/30/18 08:00 65 18 11/30/18 07:46 98 F 65 18 154/75 98 11/30/18 03:55 98.4 F 68 18 141/67 97 11/30/18 00:00 98.7 F 78 18 122/62 94 L 11/29/18 20:00 97.9 F 70 18 157/72 95 11/29/18 16:00 98.2 F 18 139/72 95 11/29/18 12:56 99/53 Intake and Output 11/29/18 11/30/18 11/30/18 22:59 06:59 14:59 Intake Total 540 250 Output Total 600 575 Balance -60 -325 Intake: Intake, IV Titration 250 Amount Amiodarone 300 mg In 250 Dextrose 5% in Water 250 ml @ 0.5 MG/MIN 25 mls/hr IV .Q10H [facility] Rx#: [id number] Oral 540 Output: Urine 600 575 Other: Voiding Method Toilet Toilet Toilet Urinal Urinal Urinal # Voids 1 Weight 87.1 kg Results 11/27/18 11:30 11/30/18 09:05 Comprehensive Metabolic Panel 11/30/18 Range/Units 09:05 Sodium 140 (137-145) mmol/L Potassium 4.2 (3.5-5.1) mmol/L Chloride 108 H (98-107) mmol/L Carbon Dioxide 24 (22-30) mmol/L BUN 16 (9-20) mg/dL Creatinine 0.62 L (0.66-1.25) mg/dL Glucose 289 H (74-99) mg/dL Calcium 8.8 (8.4-10.2) mg/dL Current Medications Generic Name Dose Route Start Last Admin Trade Name Freq PRN Reason Stop Dose Admin Acetaminophen 650 mg 11/27/18 15:08 Tylenol Tab PO Q6H PRN Pain Hydrocodone Bitart/Acetaminophen 1 each 11/27/18 15:08 11/30/18 04:09 Reva 7.5-325 PO 1 each BID PRN Administration Pain Alprazolam 0.25 mg 11/28/18 14:10 11/29/18 22:44 Xanax PO 0.25 mg Q6HR PRN Administration Mild Anxiety Alprazolam 0.5 mg 11/28/18 14:10 Xanax PO Q6HR PRN Moderate Anxiety Artificial Tears 1 drops 11/27/18 16:00 Artificial Tear Drops BOTH EYES TID PRN Dry Eye Aspirin 81 mg 11/30/18 09:00 11/30/18 08:51 Aspirin PO 81 mg DAILY AALIYAH Administration Cholecalciferol 1,000 unit 11/27/18 21:00 11/29/18 21:06 Vitamin D3 (25 Mcg = 1000 Iu) PO 1,000 unit HS AALIYAH Administration Clopidogrel Bisulfate 75 mg 11/28/18 09:00 11/30/18 08:52 Plavix PO 75 mg DAILY AALIYAH Administration Dicyclomine HCl 10 mg 11/27/18 16:00 11/30/18 08:52 Bentyl PO 10 mg TID AALIYAH Administration Gabapentin 300 mg 11/27/18 16:00 11/30/18 08:52 Neurontin PO 300 mg TID AALIYAH Administration Sodium Chloride 1,000 mls @ 20 mls/hr 11/29/18 09:15 11/29/18 21:11 Saline 0.9% IV 75 mls/hr .Q24H AALIYAH Administration Insulin Aspart 0 unit 11/27/18 17:30 11/30/18 06:50 Novolog SQ 6 unit ACHS AALIYAH Administration Protocol Insulin Detemir 25 unit 11/28/18 07:00 11/30/18 06:50 Levemir SQ 25 unit QAM@0700 AALIYAH Administration Isosorbide Mononitrate 30 mg 11/30/18 09:00 11/30/18 08:53 Imdur PO 30 mg DAILY AALIYAH Administration Losartan Potassium 25 mg 11/27/18 21:00 11/29/18 21:06 Cozaar PO 25 mg HS AALIYAH Administration Metoprolol Tartrate 25 mg 11/30/18 09:00 11/30/18 08:53 Lopressor PO 25 mg BID AALIYAH Administration Miscellaneous Information 1 each 11/29/18 09:10 Rx Info: Iv Contrast Was Given MISCELLANE 12/01/18 09:11 DAILY PRN Per Protocol Multivitamins 1 each 11/28/18 09:00 11/30/18 08:54 Theragran PO 1 each DAILY AALIYAH Administration Nitroglycerin 0.4 mg 11/27/18 15:08 11/30/18 08:16 Nitrostat SUBLINGUAL 0.4 mg Q5M PRN Administration Chest Pain Pravastatin Sodium 40 mg 11/27/18 21:00 11/29/18 21:06 Pravachol PO 40 mg HS AALIYAH Administration Senna/Docusate Sodium 1 each 11/27/18 21:00 11/30/18 08:54 Senokot-S PO 1 each BID AALIYAH Administration Tamsulosin HCl 0.4 mg 11/27/18 21:00 11/29/18 21:06 Flomax PO 0.4 mg HS AALIYAH Administration Tramadol HCl 50 mg 11/27/18 15:08 11/30/18 11:00 Ultram PO 50 mg Q6H PRN Administration Pain Intake and Output 11/29/18 11/30/1811/30/19 22:59 06:59 14:59 Intake Total 540 250 Output Total 600 575 Balance -60 -325 Intake: Intake, IV Titration 250 Amount Amiodarone 300 mg In 250 Dextrose 5% in Water 250 ml @ 0.5 MG/MIN 25 mls/hr IV .Q10H [facility] Rx#: [id number] Oral 540 Output: Urine 600 575 Other: Voiding Method Toilet Toilet Toilet Urinal Urinal Urinal # Voids 1 Weight 87.1 kg 11/27/18 11:30 11/30/18 09:05
[2018-11-30] MEDS: AMIODARONE 200 MG TAB PO SCH ×2 (14:04→21:07)
--- NOTE | 2018-11-30 15:06 | P.PN ---
Subjective Progress Note Date: 11/30/18 This is a pleasant 78-year-old male past medical history significant for coronary artery disease status post bypass grafting and subsequent stent placement to the SVG-circumflex 11/01/2018 prior to that in July 2018 he suffered a non-ST elevated myocardial infarction and underwent successful stent placement to the distal RCA and PDA. At that time he was taken back to the [facility] due to ongoing chest pain and required balloon pump placement and stenting of the SVG-OM. He also has hypertension, dyslipidemia, dementia, diabetes mellitus and cardiogenic shock requiring IABP placement 07/2018. He continues to have intermittent chest discomfort since that time. The pain is in the right side of his chest and described as sharp. He cannot specify aggravating or alleviating factors. He is somewhat of a poor historian. He denies associated shortness of breath, dizziness, nausea, vomiting, diaphoresis or palpitations. Telemetry tracings reviewed, through the night he was having quite a few PVC's in trigemminy pattern at times. This morning starting around 0700 there are multiple episodes of non-sustained monomorphic VT. patient was taken to the cardiac catheterization lab yesterday where he was found to have stable coronary artery disease with impaired LV function. Dr. Eubanks was requested to see the patient in consultation today for possible EP study. Patient was seen and evaluated by Dr. Eubanks in his nurse practitioner today who felt that we will continue at this time to continue medical therapy with amiodarone. This was explained to detail to the patient and his . Blood pressure 133/80 with a heart rate in the 60s, 95% on room air. Sodium 140, potassium 4.2, BUN 16 and creatinine 0.6. Magnesium 1.7. Objective - Vital Signs Vital signs: Vital Signs Temp 98 F 11/30/18 12:16 Pulse 67 11/30/18 12:16 Resp 18 11/30/18 12:16 BP 133/88 11/30/18 12:16 Pulse Ox 95 11/30/18 12:16 Intake & Output 11/29/18 11/30/18 11/30/18 18:59 06:59 18:59 Intake Total 100 790 Output Total 675 900 Balance -575 -110 Weight 87.1 kg Intake: IV 100 Intake, IV Titration 250 Amount Amiodarone 300 mg In 250 Dextrose 5% in Water 250 ml @ 0.5 MG/MIN 25 mls/hr IV .Q10H [facility] Rx#: [id number] Oral 540 Output: Urine 675 900 Other: Voiding Method Toilet Toilet Urinal Urinal # Voids 1 1 - Exam GENERAL: This is a 78-year-old male in no apparent distress at the time of my examination. HEENT: Head is atraumatic, normocephalic. Pupils are equal, round. Sclerae anicteric. Conjunctivae are clear. Mucous membranes of the mouth are moist. Neck is supple. There is no jugular venous distention. No carotid bruit is heard. LUNGS: Clear to auscultation no wheezes, rales or rhonchi. No chest wall tenderness is noted on palpation or with deep breathing. HEART: Regular rate and rhythm without murmurs, rubs or gallops. S1 and S2 heard. ABDOMEN: Soft, nontender. Bowel sounds are heard. No organomegaly noted. EXTREMITIES: No evidence of peripheral edema and no calf tenderness noted. Right groin soft, no evidence of any hematoma. VASCULAR: Radial and dorsalis pedis pulses palpated, no evidence of clubbing. NEUROLOGIC: Patient is awake, alert and oriented x3. - Labs CBC & Chem 7: 11/27/18 11:30 11/30/18 09:05 Labs: Abnormal Lab Results - Last 24 Hours (Table) 11/29/18 11/29/18 11/30/18 Range/Units 17:04 20:09 06:43 Chloride (98-107) mmol/L Creatinine (0.66-1.25) mg/dL Glucose (74-99) mg/dL POC Glucose (mg/dL) 357 H 352 H 260 H (75-99) mg/dL 11/30/18 11/30/18 Range/Units 09:05 12:03 Chloride 108 H (98-107) mmol/L Creatinine 0.62 L (0.66-1.25) mg/dL Glucose 289 H (74-99) mg/dL POC Glucose (mg/dL) 280 H (75-99) mg/dL Assessment and Plan Plan: ASSESSMENT and Plan #1Chest pain, atypical for angina, status post cardiac catheterization which revealed stable coronary artery disease #2Non-sustained monomorphic ventricular tachycardia, continue medical therapy with amiodarone #3Hypomagnesemia #4Ischemic cardiomyopathy, EF 35-40% #5History of coronary artery disease s/p bypass grafting and subsequent stent placement to the [place] RCA and PDA as well as vein grafts #6Hypertension #7Diabetes mellitus #8History of cardiogenic shock requiring IABP #9 dementia Plan At this point time we will continue oral amiodarone once the IV amiodarone has infused. Details were discussed regarding the pros and cons of medical therapy versus EP study with subsequent ICD placement by Dr. Redding in his nurse practitioner. Patient and family verbalized her understanding of the options as well as the pros and cons and agree with medical therapy at this time. DNP note has been reviewed, I agree with a documented findings and plan of care. Patient was seen and examined.
[2018-11-30] MEDS: SODIUM CHLORIDE 0.9% 1,000 ML IV SCH (15:25)
[2018-11-30 17:07] LABS: Glucose,Whole Blood 196 mg/dL (75-99)
[2018-11-30 20:11] LABS: Glucose,Whole Blood 235 mg/dL (75-99)
[2018-11-30] MEDS: ISOSORBIDE MONONITRATE ER 30 MG TAB.ER.24H PO SCH (21:07)
[2018-11-30] MEDS: LOSARTAN 25 MG TAB PO SCH (21:07)
[2018-11-30] MEDS: PRAVASTATIN SODIUM 40 MG TAB PO SCH (21:07)
[2018-11-30] MEDS: CHOLECALCIFEROL 1,000 UNIT TAB PO SCH (21:07)
[2018-11-30] MEDS: TAMSULOSIN 0.4 MG CAP.ER.24H PO SCH (21:07)
--- NOTE | 2018-11-30 22:10 | P.PN ---
Progress Note - Text Progress Note Date: 11/30/18 History of presenting complaint: This is 78-year-old patient of Dr. Dean Evangelista. Chronic stable medical conditions include diabetes, hyperlipidemia, hypertension, osteoarthritis, obstructive sleep apnea. Patient's previously had coronary bypass. Patient was admitted and discharged from the hospital on September 07 from the hospital. Was then admitted for acute non-Q-wave myocardial infarction. Had a cardiac catheterization was found a significant coronary artery disease. Patient had a stent to the RCA emergently. Also PDA branch of RCA as well as stenting to the saphenous vein graft to the marginal was performed. Patient also required intra-aortic balloon pump and a temporary pacemaker. Subsequently patient had a tumultuous course and admitted to ICU. Patient was on the ventilator. Patient also was then delirious. Patient subsequently was transferred to inpatient rehab. Patient's had chronic abdominal pain on and off. Has been told that he is got strictures. Patient has been at home. Able to get around without cane. Patient not a good historian rather forgetful. Patient was admitted on October 27 with recurrent chest pain. Seen by cardiology and patient was discharged home . Patient was to keep his scheduled later in the month for cardiac catheterization. Upon return home patient started having more chest pains. Readmitted.Patient underwent. angioplasty and stenting . of the distal anastomosis of SVG to left circumflex. Discharged on 11/01/2018. Patient was readmitted on November 17 with chest pain. Patient was observed and discharged home the following day. Patient now admitted after presenting with chest pain. Has had a few episodes at home. His brought him in. Has patient does not remember taking up give more details about the chest pain.. Admitted with unstable angina. Patient also found to have nonsustained monomorphic ventricular tachycardia. On October 30 patient underwent a cardiac catheterization. Patient's chronic disease, no stent to be placed. Today-this morning patient had multiple episodes of monomorphic V. tach. Was put on IV amiodarone. No chest pain or short of breath. Laying in bed. is present. Review of systems: Was done for constitutional, cardiovascular, GI, pulmonary. relevant finding as above Active Medications Acetaminophen (Tylenol Tab) 650 mg PO Q6H PRN PRN Reason: Pain Hydrocodone Bitart/Acetaminophen ([place] 7.5-325) 1 each PO BID PRN PRN Reason: Pain Last Admin: 11/30/18 14:30 Dose: 1 each Documented by: Alprazolam (Xanax) 0.25 mg PO Q6HR PRN PRN Reason: Mild Anxiety Last Admin: 11/29/18 22:44 Dose: 0.25 mg Documented by: Alprazolam (Xanax) 0.5 mg PO Q6HR PRN PRN Reason: Moderate Anxiety Amiodarone HCl (Cordarone) 400 mg PO BID [facility] Last Admin: 11/30/18 21:07 Dose: 400 mg Documented by: Artificial Tears (Artificial Tear Drops) 1 drops BOTH EYES TID PRN PRN Reason: Dry Eye Aspirin (Aspirin) 81 mg PO DAILY [facility] Last Admin: 11/30/18 08:51 Dose: 81 mg Documented by: Cholecalciferol (Vitamin D3 (25 Mcg = 1000 Iu)) 1,000 unit PO [facility] Last Admin: 11/30/18 21:07 Dose: 1,000 unit Documented by: Clopidogrel Bisulfate (Plavix) 75 mg PO DAILY [facility] Last Admin: 11/30/18 08:52 Dose: 75 mg Documented by: Dicyclomine HCl (Bentyl) 10 mg PO TID [facility] Last Admin: 11/30/18 21:07 Dose: 10 mg Documented by: Gabapentin (Neurontin) 300 mg PO TID [facility] Last Admin: 11/30/18 21:07 Dose: 300 mg Documented by: Sodium Chloride (Saline 0.9%) 1,000 mls @ 20 mls/hr IV .Q24H [facility] Last Admin: 11/30/18 15:25 Dose: Not Given Documented by: Insulin Aspart (Novolog) 0 unit SQ ACHS [facility]; Protocol Last Admin: 11/30/18 21:08 Dose: 5 unit Documented by: Insulin Detemir (Levemir) 25 unit SQ QAM@0700 [facility] Last Admin: 11/30/18 06:50 Dose: 25 unit Documented by: Isosorbide Mononitrate (Imdur) 30 mg PO BID [facility] Last Admin: 11/30/18 21:07 Dose: 30 mg Documented by: Losartan Potassium (Cozaar) 25 mg PO [facility] Last Admin: 11/30/18 21:07 Dose: 25 mg Documented by: Metoprolol Tartrate (Lopressor) 25 mg PO BID [facility] Last Admin: 11/30/18 21:07 Dose: 25 mg Documented by: Miscellaneous Information (Rx Info: Iv Contrast Was Given) 1 each MISCELLANE DAILY PRN PRN Reason: Per Protocol Stop: 12/01/18 09:11 Multivitamins (Theragran) 1 each PO DAILY [facility] Last Admin: 11/30/18 08:54 Dose: 1 each Documented by: Nitroglycerin (Nitrostat) 0.4 mg SUBLINGUAL Q5M PRN PRN Reason: Chest Pain Last Admin: 11/30/18 08:16 Dose: 0.4 mg Documented by: Pravastatin Sodium (Pravachol) 40 mg PO HS [facility] Last Admin: 11/30/18 21:07 Dose: 40 mg Documented by: Senna/Docusate Sodium (Senokot-S) 1 each PO BID [facility] Last Admin: 11/30/18 21:07 Dose: 1 each Documented by: Tamsulosin HCl (Flomax) 0.4 mg PO [facility] Last Admin: 11/30/18 21:07 Dose: 0.4 mg Documented by: Tramadol HCl (Ultram) 50 mg PO Q6H PRN PRN Reason: Pain Last Admin: 11/30/18 11:00 Dose: 50 mg Documented by: Physical examination: VITAL SIGNS: 98, 67, 18, 133/88, 95% room air GENERAL: Laying in bed, awake, EYES: Pupils equal. Conjunctiva normal. HEENT: External appearance of nose and ears normal, oral cavity grossly normal. NECK: JVD not raised; masses not palpable. HEART: First and second heart sounds are normal; no edema. LUNGS: Respiratory rate normal; decreased breath sounds. ABDOMEN: Soft, nontender, liver spleen not palpable, no masses palpable. PSYCH: Able to answer simple questions though rather forgetful. INVESTIGATIONS, reviewed in the clinical context Potassium 4.2 creatinine 0.62 EKG tracing personally reviewed by me-right bundle-branch block with LVH. Chest x-ray film personally reviewed by me-some cardiomegaly. Lung johnson are clear Assessment: -Unstable angina in a patient with known coronary artery disease,. -Cardiac catheterization showing, chronic disease -Recurrent, Nonsustained monomorphic ventricular tachycardia -Coronary artery disease with severe significant disease to the left main and right coronary artery. -Diabetes mellitus type 2 chronically on insulin -Hyperlipidemia -Primary osteoarthritis -obstructive. 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 Was followed by Dr. Arroyo -Mild -moderate cognitive impairment -CODE STATUS DO NOT RESUSCITATE from prior admissions Plan: Discussed with Dr. JAYLON Taylor. Patient for IV amiodarone given. Discussed with patient's family including the . Other medications to continue..
[2018-11-30] MEDS: ALPRAZolam 0.25 MG TAB PO PRN (23:35)
[2018-12-01] MEDS: HYDROcodone/APAP 7.5-325MG 1 EACH TAB PO PRN (00:59)
[2018-12-01] MEDS: traMADol 50 MG TAB PO PRN (02:13)
[2018-12-01] MEDS: NITROGLYCERIN SL TABS 0.4 MG TAB SUBLINGUAL PRN ×2 (02:41→10:17)
[2018-12-01 06:35] LABS: Glucose,Whole Blood 130 mg/dL (75-99)
[2018-12-01] MEDS: INSULIN ASPART (NovoLOG) 100 UNIT/ML VIAL SQ SCH ×2 (06:39→11:52)
[2018-12-01] MEDS: INSULIN DETEMIR (LEVEMIR) 100 UNIT/ML SYR SQ SCH (06:48)
[2018-12-01] MEDS: AMIODARONE 200 MG TAB PO SCH (09:11)
[2018-12-01] MEDS: GABAPENTIN 300 MG CAP PO SCH (09:12)
[2018-12-01] MEDS: METOPROLOL TARTRATE 25 MG TAB PO SCH (09:12)
[2018-12-01] MEDS: CLOPIDOGREL 75 MG TAB PO SCH (09:12)
[2018-12-01] MEDS: SENNOSIDES-DOCUSATE SODIUM 1 EACH TAB PO SCH (09:12)
[2018-12-01] MEDS: DICYCLOMINE 10 MG CAP PO SCH (09:12)
[2018-12-01] MEDS: ASPIRIN 81 MG PO SCH (09:12)
[2018-12-01] MEDS: ISOSORBIDE MONONITRATE ER 30 MG TAB.ER.24H PO SCH (09:12)
[2018-12-01] MEDS: MULTIVITAMINS, THERA 1 EACH TAB PO SCH (09:12)
[2018-12-01] MEDS ORDERED: HYDROmorphone 0.5 MG/0.5 ML SYRINGE IVP PRN (11:07)
[2018-12-01] MEDS: SODIUM CHLORIDE 0.9% 1,000 ML IV SCH (11:24)
[2018-12-01 11:47] LABS: Glucose,Whole Blood 111 mg/dL (75-99)
[2018-12-01 11:50] VITALS: BP 112/56; PULSE 51; RESP 18; TEMP 97.9
--- NOTE | 2018-12-01 22:35 | PN ---
PROGRESS NOTE Gentleman with history of CAD, prior bypass surgery, PCI. He is doing well today, but complained of chest pain. Quality of pain is atypical. Based on coronary anatomy no intervention necessary. Vitals are stable. Ventricular ectopy has improved. We will send him home on amiodarone and other medications and he will see Dr. Moreno. Vitals are stable. S1-S2 heard normally. Short systolic murmur noted. Lungs revealed decent air entry. Abdomen and lower extremity exam unchanged. MMODL / IJN: [id number] /
--- NOTE | 2018-12-02 20:34 | P.DS ---
Providers Date of admission: 11/30/18 15:34 Expected date of discharge: 12/01/18 Attending physician: Amos Yañez Consults: 11/27/18 15:06 Consult Physician Urgent Consulting Provider: Iggy Jang Consult Reason/Comments: Chest pain Do you want consulting provider notified?: Yes 11/29/18 11:26 Consult Physician Urgent Consulting Provider: Nilton Eubanks Consult Reason/Comments: vtach, ?eps Do you want consulting provider notified?: Yes Primary care physician: Dean Evangelista [place] Hospital Course: Hospital course: This is 78-year-old patient of Dr. Dean Evangelista. Chronic stable medical conditions include diabetes, hyperlipidemia, hypertension, osteoarthritis, obstructive sleep apnea. Patient's previously had coronary bypass. Patient was admitted and discharged from the hospital on September 07 from the hospital. Was then admitted for acute non-Q-wave myocardial infarction. Had a cardiac catheterization was found a significant coronary artery disease. Patient had a stent to the RCA emergently. Also PDA branch of RCA as well as stenting to the saphenous vein graft to the marginal was performed. Patient also required intra-aortic balloon pump and a temporary pacemaker. Subsequently patient had a tumultuous course and admitted to ICU. Patient was on the ventilator. Patient also was then delirious. Patient subsequently was transferred to inpatient rehab. Patient's had chronic abdominal pain on and off. Has been told that he is got strictures. Patient has been at home. Able to get around without cane. Patient not a good historian rather forgetful. Patient was admitted on October 27 with recurrent chest pain. Seen by cardiology and patient was discharged home . Patient was to keep his scheduled later in the month for cardiac catheterization. Upon return home patient started having more chest pains. Readmitted.Patient underwent. angioplasty and stenting . of the distal anastomosis of SVG to left circumflex. Discharged on 11/01/2018. Patient was readmitted on November 17 with chest pain. Patient was observed and discharged home the following day. Patient now admitted after presenting with chest pain. Has had a few episodes at home. His brought him in. Has patient does not remember taking up give more details about the chest pain.. Admitted with unstable angina. Patient also found to have nonsustained monomorphic ventricular tachycardia. On October 30 patient underwent a cardiac catheterization. Showed to have chronic disease, no stent to be placed. To be managed medically. Imdur dose was increased. Amiodarone was added. Today-stable is down discharge. Discussed with the . Consultation: Dr. JAYLON Taylor Cardiac catheterization by Dr. Moreno Physical examination: VITAL SIGNS: 97.9, 51, 18, 11 2/56, 94% room air GENERAL: Laying in bed, comfortable EYES: Pupils equal. Conjunctiva normal. HEENT: External appearance of nose and ears normal, oral cavity grossly normal. NECK: JVD not raised; masses not palpable. HEART: First and second heart sounds are normal; no edema. LUNGS: Respiratory rate normal; decreased breath sounds. ABDOMEN: Soft, nontender, liver spleen not palpable, no masses palpable. PSYCH: Able to answer simple questions though rather forgetful. INVESTIGATIONS, reviewed in the clinical context Potassium 4.2 creatinine 0.62 EKG tracing personally reviewed by me-right bundle-branch block with LVH. Chest x-ray film personally reviewed by me-some cardiomegaly. Lung johnson are clear Discharge diagnosis: -Unstable angina in a patient with known coronary artery disease,. -Cardiac catheterization showing, chronic disease -Recurrent, Nonsustained monomorphic ventricular tachycardia -Coronary artery disease with severe significant disease to the left main and right coronary artery. -Diabetes mellitus type 2 chronically on insulin -Hyperlipidemia -Primary osteoarthritis -obstructive. 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 Was followed by Dr. Arroyo -Mild -moderate cognitive impairment -CODE STATUS DO NOT RESUSCITATE from prior admissions Disposition: Home Patient Condition at Discharge: Stable Plan - Discharge Summary Discharge Rx Participant: No New Discharge Prescriptions: New Amiodarone [Cordarone] 400 mg PO BID #60 tab Continue Cholecalciferol [Vitamin D3 (25 Mcg = 1000 Iu)] 1,000 unit PO HS Tamsulosin [Flomax] 0.4 mg PO HS Pravastatin Sodium [Pravachol] 40 mg PO HS Multivitamins, Thera [Multivitamin (formulary)] 1 tab PO DAILY Aspirin 81 mg PO DAILY chew Clopidogrel [Plavix] 75 mg PO DAILY tab Insulin Glargine [Lantus] 25 unit SQ QAM #0 Artificial Tears-Hypromellose [Artificial Tear Drops] 1 drops BOTH EYES TID traMADol HCL [Ultram] 50 mg PO Q6H PRN #12 tablet PRN Reason: Pain INSULIN LISPRO (humaLOG) [humaLOG] See Protocol SQ ACHS Dicyclomine [Bentyl] 10 mg PO TID Acetaminophen Tab [Tylenol] 650 mg PO Q6H PRN PRN Reason: Pain Hydrocodone/Acetaminophen [[place] 7.5-325] 1 tab PO BID PRN PRN Reason: Pain Sennosides-Docusate Sodium [Senokot-S] 1 tab PO BID Nitroglycerin Sl Tabs [Nitrostat] 0.4 mg SUBLINGUAL Q5M PRN #30 tab PRN Reason: Chest Pain Losartan [Cozaar] 25 mg PO HS Gabapentin [Neurontin] 300 mg PO TID Changed Isosorbide Mononitrate ER [Imdur] 15 mg PO BID #60 tab Metoprolol Tartrate [Lopressor] 25 mg PO BID #60 tab Discharge Medication List Cholecalciferol [Vitamin D3 (25 Mcg = 1000 Iu)] 1,000 unit PO HS 07/14/15 [History] Tamsulosin [Flomax] 0.4 mg PO HS 07/14/17 [History] Pravastatin Sodium [Pravachol] 40 mg PO HS 08/03/17 [History] Multivitamins, Thera [Multivitamin (formulary)] 1 tab PO DAILY 07/04/18 [History] Aspirin 81 mg PO DAILY chew 09/06/18 [Rx] Clopidogrel [Plavix] 75 mg PO DAILY tab 09/06/18 [Rx] Insulin Glargine [Lantus] 25 unit SQ QAM #0 09/06/18 [Rx] Artificial Tears-Hypromellose [Artificial Tear Drops] 1 drops BOTH EYES TID 09/11/18 [History] traMADol HCL [Ultram] 50 mg PO Q6H PRN #12 tablet 09/13/18 [Rx] Acetaminophen Tab [Tylenol] 650 mg PO Q6H PRN 09/14/18 [History] Dicyclomine [Bentyl] 10 mg PO TID 09/14/18 [History] INSULIN LISPRO (humaLOG) [humaLOG] See Protocol SQ ACHS 09/14/18 [History] Hydrocodone/Acetaminophen [[place] 7.5-325] 1 tab PO BID PRN 10/27/18 [History] Sennosides-Docusate Sodium [Senokot-S] 1 tab PO BID 10/27/18 [History] Nitroglycerin Sl Tabs [Nitrostat] 0.4 mg SUBLINGUAL Q5M PRN #30 tab 11/02/18 [Rx] Losartan [Cozaar] 25 mg PO HS 11/17/18 [History] Gabapentin [Neurontin] 300 mg PO TID 11/27/18 [History] Amiodarone [Cordarone] 400 mg PO BID #60 tab 12/01/18 [Rx] Isosorbide Mononitrate ER [Imdur] 15 mg PO BID #60 tab 12/01/18 [Rx] Metoprolol Tartrate [Lopressor] 25 mg PO BID #60 tab 12/01/18 [Rx] Follow up Appointment(s)/Referral(s): Dean Evangelista MD [Primary Care Provider] - 12/05/18 12:15 pm (With LEARNING STRATEGIST [place]) Erlinda Moreno MD [STAFF PHYSICIAN] - 1 Week (Office will call with follow up appt) Patient Instructions/Handouts: Angina (DC), Hypomagnesemia (DC) Activity/Diet/Wound Care/Special Instructions: Home Care - [facility] Visiting Nurse - [phone] Discharge Disposition: HOME SELF-CARE
== END 2018-12-01 14:45 | disposition home or self-care (01) | DRG 287 ==
LOC: EC 11:13 → 1SOBS 15:06 → UNDOADMOB 15:06 → 3SCARD 11-28 21:41 → 1SOBS 11-28 21:41 → INTOOBSV 11-30 15:34 → OBSVTOIN 11-30 15:34 → UNDODISIN 12-01 14:45
PROVIDERS: ADMIT Hospitalist; ATTEND Hospitalist
PROC: B2121ZZ Fluoroscopy of Single Coronary Artery Bypass Graft using Low Osmolar Contrast (ICD-10-PCS; 2018-11-29)
PROC: B2181ZZ Fluoroscopy of Left Internal Mammary Bypass Graft using Low Osmolar Contrast (ICD-10-PCS; 2018-11-29)
PROC: B2151ZZ Fluoroscopy of Left Heart using Low Osmolar Contrast (ICD-10-PCS; 2018-11-29)
PROC: B2111ZZ Fluoroscopy of Multiple Coronary Arteries using Low Osmolar Contrast (ICD-10-PCS; principal; 2018-11-29 07:30)
DX: I25.110 Atherosclerotic heart disease of native coronary artery with unstable angina pectoris (principal); N13.8 Other obstructive and reflux uropathy; I47.2 Ventricular tachycardia; I45.2 Bifascicular block; I25.82 Chronic total occlusion of coronary artery; E83.42 Hypomagnesemia; E11.9 Type 2 diabetes mellitus without complications; I25.5 Ischemic cardiomyopathy; F03.90 Unspecified dementia, unspecified severity, without behavioral disturbance, psychotic disturbance, mood disturbance, and anxiety; Z66 Do not resuscitate; N40.1 Benign prostatic hyperplasia with lower urinary tract symptoms; F41.9 Anxiety disorder, unspecified; I10 Essential (primary) hypertension; E78.5 Hyperlipidemia, unspecified; K21.9 Gastro-esophageal reflux disease without esophagitis; M19.91 Primary osteoarthritis, unspecified site; G47.33 Obstructive sleep apnea (adult) (pediatric); G89.29 Other chronic pain; R10.9 Unspecified abdominal pain; K58.9 Irritable bowel syndrome, unspecified; K57.90 Diverticulosis of intestine, part unspecified, without perforation or abscess without bleeding; I25.2 Old myocardial infarction; Z79.82 Long term (current) use of aspirin; Z79.02 Long term (current) use of antithrombotics/antiplatelets; Z79.4 Long term (current) use of insulin; Z79.899 Other long term (current) drug therapy; Z86.74 Personal history of sudden cardiac arrest; Z99.89 Dependence on other enabling machines and devices; Z86.010 Personal history of colon polyps; Z85.46 Personal history of malignant neoplasm of prostate; Z95.5 Presence of coronary angioplasty implant and graft; Z92.3 Personal history of irradiation; Z86.14 Personal history of Methicillin resistant Staphylococcus aureus infection; Z90.49 Acquired absence of other specified parts of digestive tract; Z95.1 Presence of aortocoronary bypass graft; Z96.652 Presence of left artificial knee joint; Z87.19 Personal history of other diseases of the digestive system; Z98.890 Other specified postprocedural states; Z88.0 Allergy status to penicillin; Z88.8 Allergy status to other drugs, medicaments and biological substances; Z88.3 Allergy status to other anti-infective agents; Z91.041 Radiographic dye allergy status; Z80.42 Family history of malignant neoplasm of prostate; Z80.43 Family history of malignant neoplasm of testis; Z82.49 Family history of ischemic heart disease and other diseases of the circulatory system
CPT/HCPCS: 36415; 71046; 80048; 80053; 80061; 82550; 83690; 83735; 84484; 85025; 85610; 85730; 93005; 93308; 93459; 94760; 96365; 99285

== ENCOUNTER 2018-12-14 23:06 | Emergency (ER) | payer MEDICARE, BC ==
[2018-12-14 23:19] VITALS: TEMP 98.1
[2018-12-15 00:03] LABS: Basophils # (A) 0.1 k/uL (0-0.2); Basophils % (A) 1 %; Eosinophils # (A) 0.2 k/uL (0-0.7); Eosinophils % (A) 2 %; HCT 40.6 % (39.0-53.0); HGB 12.9 gm/dL (13.0-17.5); Lymphocytes # (A) 1.8 k/uL (1.0-4.8); Lymphocytes % (A) 26 %; MCH 29.4 pg (25.0-35.0); MCHC 31.8 g/dL (31.0-37.0); MCV 92.5 fL (80.0-100.0); Mean Platelet Volume 8.4; Monocytes # (A) 0.5 k/uL (0-1.0); Monocytes % (A) 7 %; Neutrophils # (A) 4.2 k/uL (1.3-7.7); Neutrophils % (A) 60 %; Platelet Count 242 k/uL (150-450); RBC 4.39 m/uL (4.30-5.90); RDW 13.5 % (11.5-15.5); WBC 6.9 k/uL (3.8-10.6)
[2018-12-15 00:13] LABS: INR 0.9 (<1.2); Partial Thromboplastin Time 24.1 sec (22.0-30.0)
[2018-12-15 00:14] LABS: ALT 22 U/L (21-72); AST 24 U/L (17-59); African American GFR (CKD) >90 (>60 ml/min/1.73 sqM); Albumin 3.9 g/dL (3.5-5.0); Alkaline Phosphatase 65 U/L (38-126); Amylase <30 U/L (30-110); Anion Gap 10 mmol/L; Blood Urea Nitrogen 21 mg/dL (9-20); Calcium 9.3 mg/dL (8.4-10.2); Carbon Dioxide 26 mmol/L (22-30); Chloride 103 mmol/L (98-107); Glucose 271 mg/dL (74-99); Magnesium 1.6 mg/dL (1.6-2.3); Non-African American GFR(CKD) 87 (>60 ml/min/1.73 sqM); Potassium 4.3 mmol/L (3.5-5.1); Sodium 139 mmol/L (137-145); Total Bilirubin 0.2 mg/dL (0.2-1.3); Total Protein 6.4 g/dL (6.3-8.2)
--- NOTE | 2018-12-15 00:19 | XR ---
EXAMINATION TYPE: XR chest 1V portable DATE OF EXAM: 12/14/2018 COMPARISON: 11/27/2018 HISTORY: Chest pain TECHNIQUE: Single frontal view of the chest is obtained. FINDINGS: There is no heart failure nor confluent pneumonic infiltrate. Costophrenic angles are mari r. There are sternal wires. There is no pleural effusion. There are chest leads. IMPRESSION: No active cardiopulmonary disease. No change
--- NOTE | 2018-12-15 01:08 | ED ---
Chest Pain HPI - General Chief Complaint: Chest Pain Stated Complaint: Chest Pain Time Seen by Provider: 12/14/18 23:18 Source: patient Mode of arrival: wheelchair - History of Present Illness MD Complaint: chest pain -: hour(s) Onset: during rest Pain Location: substernal Pain Radiation: none Quality: tightness Consistency: constant Improves With: nothing Worsens With: nothing Other Symptoms: palpitations Treatments Prior to Arrival: none - Related Data Home Medications Medication Instructions Recorded Confirmed Cholecalciferol [Vitamin D3 (25 1,000 unit PO HS 07/14/15 12/14/18 Mcg = 1000 Iu)] Tamsulosin [Flomax] 0.4 mg PO HS 07/14/17 12/14/18 Pravastatin Sodium [Pravachol] 40 mg PO HS 08/03/17 12/14/18 Multivitamins, Thera [Multivitamin 1 tab PO DAILY 07/04/18 12/14/18 (formulary)] Artificial Tears-Hypromellose 1 drops BOTH EYES TID 09/11/18 12/14/18 [Artificial Tear Drops] Acetaminophen Tab [Tylenol] 650 mg PO Q6H PRN 09/14/18 12/14/18 Dicyclomine [Bentyl] 10 mg PO TID 09/14/18 12/14/18 INSULIN LISPRO (humaLOG) [humaLOG] See Protocol SQ ACHS 09/14/18 12/14/18 Hydrocodone/Acetaminophen [[place] 1 tab PO BID PRN 10/27/18 12/14/18 7.5-325] Sennosides-Docusate Sodium 1 tab PO BID 10/27/18 12/14/18 [Senokot-S] Losartan [Cozaar] 25 mg PO HS 11/17/18 12/14/18 Gabapentin [Neurontin] 300 mg PO TID 11/27/18 12/14/18 Insulin Glargine [Lantus] 45 unit SQ QAM 12/14/18 12/14/18 Previous Rx's Medication Instructions Recorded Aspirin 81 mg PO DAILY chew 09/06/18 Clopidogrel [Plavix] 75 mg PO DAILY tab 09/06/18 traMADol HCL [Ultram] 50 mg PO Q6H PRN #12 tablet 09/13/18 Nitroglycerin Sl Tabs [Nitrostat] 0.4 mg SUBLINGUAL Q5M PRN #30 tab 11/02/18 Amiodarone [Cordarone] 400 mg PO BID #60 tab 12/01/18 Isosorbide Mononitrate ER [Imdur] 15 mg PO BID #60 tab 12/01/18 Metoprolol Tartrate [Lopressor] 25 mg PO BID #60 tab 12/01/18 Allergies Allergy/AdvReac Type Severity Reaction Status Date / Time Iodinated Contrast Media Allergy Rash/Hives Verified 12/14/18 23:35 iodine Allergy Rash/Hives Verified 12/14/18 23:35 Penicillins Allergy Swelling Verified 12/14/18 23:35 duloxetine [From Cymbalta] AdvReac PRICKLY Verified 12/14/18 23:35 FEELING IN HEAD povidone-iodine AdvReac Itchy,red Verified 12/14/18 23:35 [From Betadine] skin soap [From Betadine] AdvReac Itchy,red Verified 12/14/18 23:35 skin Surgical Scrub AdvReac Unknown Itching, Uncoded 12/14/18 23:35 Red skin Review of Systems ROS Statement: Those systems with pertinent positive or pertinent negative responses have been documented in the HPI. ROS Other: All systems not noted in ROS Statement are negative. Constitutional: Denies: fever, chills Respiratory: Denies: cough, dyspnea Cardiovascular: Reports: as per HPI, chest pain, palpitations. Denies: edema, syncope Gastrointestinal: Denies: abdominal pain, nausea, vomiting Genitourinary: Denies: dysuria Musculoskeletal: Denies: back pain Neurological: Denies: headache, weakness, numbness EKG Findings - EKG Results: EKG: interpreted by ERMD, sinus rhythm (Rate 59 bpm) - Blocks, [place], Hypertrophy, ST Abn: AV and intraventricular conduction: right bundle branch block (fixed/intermittent, complete/incomplete), left anterior fascicular block Chamber hypertrophy or enlargement: left ventricular hypertrophy or enlargement (LVE) Past Medical History Past Medical History: Coronary Artery Disease (CAD), Cancer, Diabetes Mellitus, GERD/Reflux, Hyperlipidemia, Hypertension, Memory Impairment, Osteoarthritis (OA), Pneumonia, Prostate Disorder, Sleep Apnea/CPAP/BIPAP Additional Past Medical History / Comment(s): [place] 08/23/[address]/cardiogenic shock/balloon pump/CHB with temporary pacer/thrombocytopenia. 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, IDDM type II, History of Any Multi-Drug Resistant Organisms: MRSA Date of last positivie culture/infection: 08/30/18 MDRO Source:: Sputum Past Surgical History: Appendectomy, Back Surgery, Cholecystectomy, Coronary Bypass/CABG, Heart Catheterization, Heart Catheterization With Stent, Hernia Repair, Joint Replacement, Orthopedic Surgery Additional Past Surgical History / Comment(s): 08/23/18 PCI with stent to RCA, cardiac caths, 2008 CABG 3 vessels, inguinal and incisional hernia repairs, triple incisional hernia repair/lysis of adhesions, multiple surgeries for abdominal adhessions, fatty tumors removed posterior neck, ORIF R ankle/R tib fib, total L knee arthroplasty, L rotator cuff repair, bilateral carpal tunne releases, colonoscopies/bening polyp, EGDs. Past Anesthesia/Blood Transfusion Reactions: No Reported Reaction Date of Last Stent Placement:: 08/23/18 Past Psychological History: Anxiety Smoking Status: Never smoker Past Alcohol Use History: None Reported Past Drug Use History: None Reported - Past Family History Father History Unknown: Yes Family Medical History: Cancer Additional Family Medical History / Comment(s): PROSTATE CANCER Son(s) Family Medical History: Cancer Additional Family Medical History / Comment(s): TESTICULAR CANCER Mother Family Medical History: Coronary Artery Disease (CAD), Hypertension Sister(s) Family Medical History: Cancer General Exam General appearance: alert, in no apparent distress Head exam: Present: atraumatic, normocephalic Eye exam: Present: normal appearance. Absent: scleral icterus, conjunctival injection Neck exam: Present: normal inspection, full ROM Respiratory exam: Present: normal lung sounds bilaterally. Absent: respiratory distress, wheezes, rales, rhonchi, stridor, chest wall tenderness Cardiovascular Exam: Present: regular rate, irregular rhythm, normal heart sounds. Absent: systolic murmur, diastolic murmur, rubs, gallop GI/Abdominal exam: Present: soft. Absent: distended, tenderness, guarding, rebound, rigid, mass Extremities exam: Present: normal inspection, normal capillary refill. Absent: pedal edema, calf tenderness Back exam: Present: normal inspection. Absent: CVA tenderness (R), CVA tenderness (L) Neurological exam: Present: alert Skin exam: Present: warm, dry, intact, normal color. Absent: rash Course Vital Signs 12/14/18 12/14/18 12/15/18 23:17 23:30 00:00 Temperature 98.1 F Pulse Rate 66 63 56 L Respiratory 18 18 18 Rate Blood Pressure 181/93 181/93 172/118 O2 Sat by Pulse 97 97 98 Oximetry 12/15/18 12/15/18 00:30 01:00 Temperature Pulse Rate 55 L 52 L Respiratory 18 16 Rate Blood Pressure 160/69 144/76 O2 Sat by Pulse 98 97 Oximetry Chest Pain MDM - MDM This patient is an 78-year-old man presenting with complaint of upper chest pain as well as palpitations that came on tonight. Given patient's age and underlying condition I did recommend that he stay for further desk monitor ing and repeat cardiac enzymes. Patient at this point is feeling better and stating that he was going to go home. He does understand that there is risk of missing underlying cardiac disease and he states he can accept that. He will follow with recreational counselor, will return here if any symptoms recur. Disposition Clinical Impression: Chest pain Disposition: HOME SELF-CARE Condition: Fair Instructions (If sedation given, give patient instructions): Chest Pain (ED) Is patient prescribed a controlled substance at d/c from ED?: No Referrals: Dean Evangelista MD [Primary Care Provider] - 1-2 days Erlinda Moreno MD [STAFF PHYSICIAN] - 1-2 days
[2018-12-15 01:15] VITALS: BP 144/76; PULSE 52; RESP 16
== END 2018-12-15 01:35 | disposition home or self-care (01) ==
LOC: EC 23:06
DX: R07.9 Chest pain, unspecified (principal); R00.2 Palpitations; I25.10 Atherosclerotic heart disease of native coronary artery without angina pectoris; I25.2 Old myocardial infarction; E11.9 Type 2 diabetes mellitus without complications; K21.9 Gastro-esophageal reflux disease without esophagitis; E78.5 Hyperlipidemia, unspecified; I10 Essential (primary) hypertension; M19.90 Unspecified osteoarthritis, unspecified site; I44.2 Atrioventricular block, complete; N40.0 Benign prostatic hyperplasia without lower urinary tract symptoms; F41.9 Anxiety disorder, unspecified; G47.33 Obstructive sleep apnea (adult) (pediatric); Z79.4 Long term (current) use of insulin; Z79.899 Other long term (current) drug therapy; Z91.041 Radiographic dye allergy status; Z88.0 Allergy status to penicillin; Z88.8 Allergy status to other drugs, medicaments and biological substances; Z91.048 Other nonmedicinal substance allergy status; Z91.09 Other allergy status, other than to drugs and biological substances; Z85.46 Personal history of malignant neoplasm of prostate; Z95.1 Presence of aortocoronary bypass graft; Z95.5 Presence of coronary angioplasty implant and graft; Z92.3 Personal history of irradiation; Z96.652 Presence of left artificial knee joint; Z86.14 Personal history of Methicillin resistant Staphylococcus aureus infection; Z99.89 Dependence on other enabling machines and devices; Z82.49 Family history of ischemic heart disease and other diseases of the circulatory system
CPT/HCPCS: 36415; 71045; 80053; 82150; 83690; 83735; 83880; 84484; 85025; 85610; 85730; 93005; 99285

== ENCOUNTER 2019-02-08 09:52 | Observation (INO) | payer MEDICARE, BC ==
[2019-02-08 10:37] LABS: Basophils % (A) 0 %; Eosinophils # (A) 0.2 k/uL (0-0.7); Eosinophils % (A) 1 %; HGB 13.4 gm/dL (13.0-17.5); Lymphocytes % (A) 8 %; MCH 28.9 pg (25.0-35.0); MCHC 32.6 g/dL (31.0-37.0); MCV 88.7 fL (80.0-100.0); Mean Platelet Volume 9.9; Monocytes # (A) 0.9 k/uL (0-1.0); Monocytes % (A) 7 %; Neutrophils # (A) 10.1 k/uL (1.3-7.7); Neutrophils % (A) 80 %; Platelet Count 151 k/uL (150-450); RBC 4.62 m/uL (4.30-5.90); RDW 13.9 % (11.5-15.5); WBC 12.6 k/uL (3.8-10.6)
[2019-02-08 10:46] LABS: INR 0.9 (<1.2); Partial Thromboplastin Time 22.1 sec (22.0-30.0); Prothrombin Time 9.6 sec (9.0-12.0)
[2019-02-08 10:49] LABS: Calcium 9.1 mg/dL (8.4-10.2); Magnesium 1.6 mg/dL (1.6-2.3); Potassium 4.2 mmol/L (3.5-5.1); Total Bilirubin 0.5 mg/dL (0.2-1.3); Total Protein 6.5 g/dL (6.3-8.2)
--- NOTE | 2019-02-08 11:10 | XR ---
EXAMINATION TYPE: XR chest 2V DATE OF EXAM: 02/08/2019 COMPARISON: 12/14/2018 TECHNIQUE: PA and lateral views submitted. HISTORY: Chest pain FINDINGS: The lungs are clear and there is no pneumothorax, pleural effusion, or focal pneumonia. Arthropathy of the shoulders are noted. Widening of the right AC joint is stable. Postoperative change and cardi omegaly stable. Hypertrophic and degenerative change of the spine with no pleural effusion, pneumotho rax or focal pneumonia. Mild interstitial prominence persists. IMPRESSION: 1. Mild interstitial prominence may represent chronic interstitial lung disease or venous congestion correlate clinically.
[2019-02-08] MEDS ORDERED: ASPIRIN 325 MG TAB PO STA (12:08)
[2019-02-08] MEDS ORDERED: NALOXONE 0.4 MG/ML 1 ML VIAL IV PRN (12:11)
[2019-02-08] MEDS ORDERED: IBUPROFEN 400 MG TAB PO PRN (12:11)
[2019-02-08] MEDS ORDERED: ACETAMINOPHEN TAB 325 MG TAB PO PRN (12:11)
[2019-02-08] MEDS ORDERED: NITROGLYCERIN SL TABS 0.4 MG TAB SUBLINGUAL PRN ×2 (12:12→14:54)
--- NOTE | 2019-02-08 12:17 | ED ---
General Adult HPI - General Chief complaint: Chest Pain Stated complaint: chest pain Time Seen by Provider: 02/08/19 10:03 Source: patient, RN notes reviewed, old records reviewed Mode of arrival: ambulatory Limitations: no limitations - History of Present Illness Initial comments: 79 -year-old male presented for evaluation of central and left-sided chest pain. Pain is nonradiating. Patient's states the pain is been present for approximately 3 hours prior to arrival. He has a known history of coronary artery disease with previous CABG and stenting. Patient denies cough or dyspnea. Denies fever or chills. No associated diaphoresis or nausea vomiting. Patient did take nitroglycerin at home with minimal relief. He has been compliant with medications. - Related Data Home Medications Medication Instructions Recorded Confirmed Cholecalciferol [Vitamin D3 (25 1,000 unit PO HS 07/14/15 02/08/19 Mcg = 1000 Iu)] Tamsulosin [Flomax] 0.4 mg PO HS 07/14/17 02/08/19 Pravastatin Sodium [Pravachol] 40 mg PO HS 08/03/17 02/08/19 Multivitamins, Thera [Multivitamin 1 tab PO DAILY 07/04/18 02/08/19 (formulary)] Artificial Tears-Hypromellose 1 drops BOTH EYES TID 09/11/18 02/08/19 [Artificial Tear Drops] Acetaminophen Tab [Tylenol] 650 mg PO Q6H PRN 09/14/18 02/08/19 Dicyclomine [Bentyl] 10 mg PO TID 09/14/18 02/08/19 INSULIN LISPRO (humaLOG) [humaLOG] See Protocol SQ ACHS 09/14/18 02/08/19 Hydrocodone/Acetaminophen [[place] 1 tab PO BID PRN 10/27/18 02/08/19 7.5-325] Sennosides-Docusate Sodium 1 tab PO BID 10/27/18 02/08/19 [Senokot-S] Losartan [Cozaar] 25 mg PO HS 11/17/18 02/08/19 Insulin Glargine [Lantus] 45 unit SQ QAM 12/14/18 02/08/19 Amiodarone [Cordarone] 200 mg PO DAILY 02/08/19 02/08/19 Gabapentin 600 mg PO TID 02/08/19 02/08/19 Isosorbide Mononitrate ER [Imdur] 15 mg PO DAILY 02/08/19 02/08/19 Previous Rx's Medication Instructions Recorded Aspirin 81 mg PO DAILY chew 09/06/18 Clopidogrel [Plavix] 75 mg PO DAILY tab 09/06/18 traMADol HCL [Ultram] 50 mg PO Q6H PRN #12 tablet 09/13/18 Nitroglycerin Sl Tabs [Nitrostat] 0.4 mg SUBLINGUAL Q5M PRN #30 tab 11/02/18 Metoprolol Tartrate [Lopressor] 25 mg PO BID #60 tab 12/01/18 Allergies Allergy/AdvReac Type Severity Reaction Status Date / Time Iodinated Contrast Media Allergy Rash/Hives Verified 02/08/19 11:02 iodine Allergy Rash/Hives Verified 02/08/19 11:02 Penicillins Allergy Swelling Verified 02/08/19 11:02 duloxetine [From Cymbalta] AdvReac PRICKLY Verified 02/08/19 11:02 FEELING IN HEAD povidone-iodine AdvReac Itchy,red Verified 02/08/19 11:02 [From Betadine] skin soap [From Betadine] AdvReac Itchy,red Verified 02/08/19 11:02 skin Surgical Scrub AdvReac Unknown Itching, Uncoded 02/08/19 10:01 Red skin Review of Systems ROS Statement: Those systems with pertinent positive or pertinent negative responses have been documented in the HPI. ROS Other: All systems not noted in ROS Statement are negative. Past Medical History Past Medical History: Coronary Artery Disease (CAD), Cancer, Diabetes Mellitus, GERD/Reflux, Hyperlipidemia, Hypertension, Memory Impairment, Osteoarthritis (OA), Pneumonia, Prostate Disorder, Sleep Apnea/CPAP/BIPAP Additional Past Medical History / Comment(s): [place] 08/23/[address]/card iogenic shock/balloon pump/CHB with temporary pacer/thrombocytopenia. 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, IDDM type II, History of Any Multi-Drug Resistant Organisms: MRSA Date of last positivie culture/infection: 08/30/18 MDRO Source:: Sputum Past Surgical History: Appendectomy, Back Surgery, Cholecystectomy, Coronary Bypass/CABG, Heart Catheterization, Heart Catheterization With Stent, Hernia Repair, Joint Replacement, Orthopedic Surgery Additional Past Surgical History / Comment(s): 08/23/18 PCI with stent to RCA, cardiac caths, 2008 CABG 3 vessels, inguinal and incisional hernia repairs, triple incisional hernia repair/lysis of adhesions, multiple surgeries for abdominal adhessions, fatty tumors removed posterior neck, ORIF R ankle/R tib fib, total L knee arthroplasty, L rotator cuff repair, bilateral carpal tunne releases, colonoscopies/bening polyp, EGDs. Past Anesthesia/Blood Transfusion Reactions: No Reported Reaction Date of Last Stent Placement:: 08/23/18 Past Psychological History: Anxiety Smoking Status: Never smoker Past Alcohol Use History: None Reported Past Drug Use History: None Reported - Past Family History Father History Unknown: Yes Family Medical History: Cancer Additional Family Medical History / Comment(s): PROSTATE CANCER Son(s) Family Medical History: Cancer Additional Family Medical History / Comment(s): TESTICULAR CANCER Mother Family Medical History: Coronary Artery Disease (CAD), Hypertension Sister(s) Family Medical History: Cancer General Exam Limitations: no limitations General appearance: alert, in no apparent distress Head exam: Present: atraumatic, normocephalic Eye exam: Present: normal appearance, PERRL ENT exam: Present: normal exam Neck exam: Present: normal inspection. Absent: tenderness, meningismus Respiratory exam: Present: normal lung sounds bilaterally. Absent: respiratory distress, wheezes Cardiovascular Exam: Present: regular rate, normal rhythm, systolic murmur GI/Abdominal exam: Present: soft. Absent: distended, tenderness, guarding Extremities exam: Present: normal inspection, normal capillary refill. Absent: pedal edema Neurological exam: Present: alert, oriented X3, CN II-XII intact. Absent: motor sensory deficit Psychiatric exam: Present: normal affect, normal mood Skin exam: Present: warm, dry, intact. Absent: cyanosis, diaphoretic Course Vital Signs 02/08/19 09:58 Temperature 98.6 F Pulse Rate 67 Respiratory 20 Rate Blood Pressure 107/60 O2 Sat by Pulse 96 Oximetry EKG Findings - EKG Comments: EKG Findings:: EKG: Normal sinus rhythm, right wrist block, left anterior fascicular block and left ventricular hypertrophy no change compared to previous EKG in November. Rate of 63. CT interval 194, QRS duration 172, QTC 497. Medical Decision Making - Medical Decision Making 79 -year-old male presenting for evaluation of left-sided chest pain. Patient has known history of CAD status post open heart surgery and multiple stents. Pain was only somewhat relieved by nitroglycerin at home. Pain is left-sided, worse with deep inspiration. Atypical chest pain. Nonradiating. No cough or fever. No dyspnea. Patient has EKG showing sinus rhythm with a bifascicular block which is unchanged from previous. He is on medical therapy including aspirin and Plavix which he has been compliant with. Initial workup reveals mild leukocytosis, uncertain etiology. Normal CMP with the exception of hyperglycemia. He has a negative initial troponin. Chest x-ray showing a venous congestion versus interstitial lung disease. No acute changes. Patient will be kept in observation for serial cardiac enzymes and his risk factors. Telemetry. Patient family agreeable with plan. Case discussed with Dr. Yañez - Lab Data Result diagrams: 02/08/19 10:21 02/08/19 10:21 Lab Results 02/08/19 02/08/19 02/08/19 Range/Units 10:21 10:21 10:21 WBC 12.6 H (3.8-10.6) k/uL RBC 4.62 (4.30-5.90) m/uL Hgb 13.4 (13.0-17.5) gm/dL Hct 41.0 (39.0-53.0) % MCV 88.7 (80.0-100.0) fL MCH 28.9 (25.0-35.0) pg MCHC 32.6 (31.0-37.0) g/dL RDW 13.9 (11.5-15.5) % Plt Count 151 (150-450) k/uL Neutrophils % 80 % Lymphocytes % 8 % Monocytes % 7 % Eosinophils % 1 % Basophils % 0 % Neutrophils # 10.1 H (1.3-7.7) k/uL Lymphocytes # 1.0 (1.0-4.8) k/uL Monocytes # 0.9 (0-1.0) k/uL Eosinophils # 0.2 (0-0.7) k/uL Basophils # 0.0 (0-0.2) k/uL PT (9.0-12.0) sec INR (<1.2) APTT (22.0-30.0) sec Sodium 139 (137-145) mmol/L Potassium 4.2 (3.5-5.1) mmol/L Chloride 103 (98-107) mmol/L Carbon Dioxide 27 (22-30) mmol/L Anion Gap 9 mmol/L BUN 21 H (9-20) mg/dL Creatinine 0.96 (0.66-1.25) mg/dL Est GFR (CKD-EPI)AfAm 86 (>60 ml/min/1.73 sqM) Est GFR (CKD-EPI)NonAf 74 (>60 ml/min/1.73 sqM) Glucose 198 H (74-99) mg/dL Calcium 9.1 (8.4-10.2) mg/dL Magnesium 1.6 (1.6-2.3) mg/dL Total Bilirubin 0.5 (0.2-1.3) mg/dL AST 25 (17-59) U/L ALT 29 (21-72) U/L Alkaline Phosphatase 74 (38-126) U/L Troponin I (0.000-0.034) ng/mL NT-Pro-B Natriuret Pep 834 pg/mL Total Protein 6.5 (6.3-8.2) g/dL Albumin 4.0 (3.5-5.0) g/dL 02/08/19 02/08/19 Range/Units 10:21 10:21 WBC (3.8-10.6) k/uL RBC (4.30-5.90) m/uL Hgb (13.0-17.5) gm/dL Hct (39.0-53.0) % MCV (80.0-100.0) fL MCH (25.0-35.0) pg MCHC (31.0-37.0) g/dL RDW (11.5-15.5) % Plt Count (150-450) k/uL Neutrophils % % Lymphocytes % % Monocytes % % Eosinophils % % Basophils % % Neutrophils # (1.3-7.7) k/uL Lymphocytes # (1.0-4.8) k/uL Monocytes # (0-1.0) k/uL Eosinophils # (0-0.7) k/uL Basophils # (0-0.2) k/uL PT 9.6 (9.0-12.0) sec INR 0.9 (<1.2) APTT 22.1 (22.0-30.0) sec Sodium (137-145) mmol/L Potassium (3.5-5.1) mmol/L Chloride (98-107) mmol/L Carbon Dioxide (22-30) mmol/L Anion Gap mmol/L BUN (9-20) mg/dL Creatinine (0.66-1.25) mg/dL Est GFR (CKD-EPI)AfAm (>60 ml/min/1.73 sqM) Est GFR (CKD-EPI)NonAf (>60 ml/min/1.73 sqM) Glucose (74-99) mg/dL Calcium (8.4-10.2) mg/dL Magnesium (1.6-2.3) mg/dL Total Bilirubin (0.2-1.3) mg/dL AST (17-59) U/L ALT (21-72) U/L Alkaline Phosphatase (38-126) U/L Troponin I 0.016 (0.000-0.034) ng/mL NT-Pro-B Natriuret Pep pg/mL Total Protein (6.3-8.2) g/dL Albumin (3.5-5.0) g/dL Disposition Clinical Impression: Chest pain Disposition: ADMITTED IP TO THIS [facility] Condition: Stable Is patient prescribed a controlled substance at d/c from ED?: No Referrals: Dean Evangelista MD [Primary Care Provider] - 1-2 days Decision to Admit Reason: Admit from EC Decision Date: 02/08/19 Decision Time: 12:17
[2019-02-08 16:48] LABS: Glucose,Whole Blood 83 mg/dL (75-99)
[2019-02-08] MEDS: ARTIFICIAL TEARS-HYPROMELLOSE DROPS 15 ML BTL BOTH EYES SCH ×2 (17:05→22:29)
[2019-02-08] MEDS: DICYCLOMINE 10 MG CAP PO SCH ×2 (17:06→22:30)
[2019-02-08] MEDS: GABAPENTIN 300 MG CAP PO SCH ×2 (17:06→22:30)
[2019-02-08] MEDS: CALCIUM CARBONATE LIQUID 500 MG/5 ML CUP PO SCH (17:06)
[2019-02-08 20:05] LABS: Glucose,Whole Blood 127 mg/dL (75-99)
--- NOTE | 2019-02-08 20:14 | P.HPIM ---
History of Present Illness H&P Date: 02/08/19 Chief Complaint: epigastric fullness history of presenting complaint: This is 79-year-old patient of Dr. Dean Evangelista. Chronic stable medical conditions include diabetes, hyperlipidemia, hypertension, osteoarthritis, obstructive sleep apnea. Patient's previously had coronary bypass. Patient was admitted and discharged from the hospital on September 07 l. admitted for acute n on-Q-wave myocardial infarction. Had a cardiac catheterization was found a significant coronary artery disease. Patient had a stent to the RCA emergently. Also PDA branch of RCA as well as stenting to the saphenous vein graft to the marginal was performed. Patient also required intra-aortic balloon pump and a temporary pacemaker. Subsequently patient had a tumultuous course and admitted to ICU. Patient was on the ventilator. Patient also was then delirious. Patient subsequently was transferred to inpatient rehab. Patient's has chronic abdominal pain on and off. Has been told that he is got strictures. . Patient not a good historian rather forgetful. Patient was admitted on October 27 with recurrent chest pain. Seen by cardiology and patient was discharged home . Patient was to keep his scheduled later in the month for cardiac catheterization. Upon return home patient started having more chest pains. Readmitted.Patient underwent. angioplasty and stenting . of the distal anastomosis of SVG to left circumflex. Discharged on 11/01/2018. Patient was readmitted on November 17 with chest pain. Patient was observed and discharged home the following day. Patient admitted on December 14 chest pain. . Admitted with unstable angina. Patient also found to have nonsustained monomorphic ventricular tachycardia. patient now presents with episode of fullness in the epigastric. [place] like gas. He also had a bloating sensation. Also adjoining it is a chest had some chest pressure. That lasted for a few hours. Because of his cardiac history presented to the ER was admitted to rule out a cardiac cause. Review of systems: GEN.: Tired, appetite fair EYES: None HEENT: None NECK: None RESPIRATORY: Occasionally short of breath CARDIOVASCULAR: As above GASTROINTESTINAL: Chronic abdominal pain, intermittent GENITOURINARY: None MUSCULOSKELETAL: pain in the joints LYMPHATICS: None HEMATOLOGICAL: None PSYCHIATRY: Forgetful NEUROLOGICAL: Uses a cane Past medical history: Coronary artery disease with coronary stent, diabetes mellitus type 2, hyperlipidemia, primary osteoarthritis, obstructive sleep apnea, chronic bladder outflow obstruction,. Social history: Does not smoke or drink alcohol. . At home Family history: Prostate cancer Physical examination: VITAL SIGNS: 98.6, 67, 20, 107/60, 96% room air GENERAL: Laying in bed, comfortable EYES: Pupils equal. Conjunctiva normal. HEENT: External appearance of nose and ears normal, oral cavity grossly normal. NECK: JVD not raised; masses not palpable. HEART: First and second heart sounds are normal; no edema. LUNGS: Respiratory rate normal; decreased breath sounds. ABDOMEN: Soft, nontender, liver spleen not palpable, no masses palpable. PSYCH: Able to answer simple questions though rather forgetful. INVESTIGATIONS, reviewed in the clinical context white count 2.6 hemoglobin 13.4 progression 4.2 creatinine 0.96 Chest x-ray film personally reviewed by me-some chronic changes in the lungs EKG tracing-right bundle-branch block pattern, with sinus rhythm Discharge diagnosis: -patient presently feels a bloating sensation in the epigastric and a fullness associated with reflux, does not really sound to be cardiac. Particular strong cardiac history we'll get culture..probable dyspepsia -Coronary artery disease with severe significant disease to the left main and right coronary artery. -Diabetes mellitus type 2 chronically on insulin -Hyperlipidemia -Primary osteoarthritis -obstructive. 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 Was followed by Dr. Arroyo -Mild -moderate cognitive impairment -CODE STATUS DO NOT RESUSCITATE from prior admissions plan: patient findings of more compatible GI symptoms. Home medications to be resumed. We'll get a cardiology opinion given extensive cardiac history. Care was discussed with the patient. Questions were answered. We'll try the patient on Tums. Past Medical History Past Medical History: Coronary Artery Disease (CAD), Cancer, Diabetes Mellitus, GERD/Reflux, Hyperlipidemia, Hypertension, Memory Impairment, Osteoarthritis (OA), Pneumonia, Prostate Disorder, Sleep Apnea/CPAP/BIPAP Additional Past Medical History / Comment(s): [place] 08/23/[address]/cardiogenic shock/balloon pump/CHB with temporary pacer/thrombocytopenia. 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, IDDM type II, sepsis History of Any Multi-Drug Resistant Organisms: MRSA Date of last positivie culture/infection: 08/30/18 MDRO Source:: Sputum Past Surgical History: Appendectomy, Back Surgery, Cholecystectomy, Coronary Bypass/CABG, Heart Catheterization, Heart Catheterization With Stent, Hernia Repair, Joint Replacement, Orthopedic Surgery Additional Past Surgical History / Comment(s): 08/23/18 PCI with stent to RCA, cardiac caths, 2008 CABG 3 vessels, inguinal and incisional hernia repairs, triple incisional hernia repair/lysis of adhesions, multiple surgeries for abdominal adhessions, fatty tumors removed posterior neck, ORIF R ankle/R tib fib, total L knee arthroplasty, L rotator cuff repair, bilateral carpal tunnel releases, colonoscopies/bening polyp, EGDs. Past Anesthesia/Blood Transfusion Reactions: No Reported Reaction Date of Last Stent Placement:: 08/23/18 Past Psychological History: Anxiety Additional Psychological History / Comment(s): Pt resides with his spouse. He uses a cane to ambulate. He has not been driving recently d/t health reasons. His spouse and family drive him to [place]. Smoking Status: Never smoker Past Alcohol Use History: None Reported Past Drug Use History: None Reported - Past Family History Father History Unknown: Yes Family Medical History: Cancer Additional Family Medical History / Comment(s): PROSTATE CANCER Son(s) Family Medical History: Cancer Additional Family Medical History / Comment(s): TESTICULAR CANCER Mother Family Medical History: Coronary Artery Disease (CAD), Hypertension Sister(s) Family Medical History: Cancer Medications and Allergies Home Medications Medication Instructions Recorded Confirmed Type Cholecalciferol [Vitamin D3 (25 1,000 unit PO HS 07/14/15 02/08/19 History Mcg = 1000 Iu)] Tamsulosin [Flomax] 0.4 mg PO HS 07/14/17 02/08/19 History Pravastatin Sodium [Pravachol] 40 mg PO HS 08/03/17 02/08/19 History Multivitamins, Thera [Multivitamin 1 tab PO DAILY 07/04/18 02/08/19 History (formulary)] Aspirin 81 mg PO DAILY chew 09/06/18 02/08/19 Rx Clopidogrel [Plavix] 75 mg PO DAILY tab 09/06/18 02/08/19 Rx Artificial Tears-Hypromellose 1 drops BOTH EYES TID 09/11/18 02/08/19 History [Artificial Tear Drops] traMADol HCL [Ultram] 50 mg PO Q6H PRN #12 tablet 09/13/18 02/08/19 Rx Acetaminophen Tab [Tylenol] 650 mg PO Q6H PRN 09/14/18 02/08/19 History Dicyclomine [Bentyl] 10 mg PO TID 09/14/18 02/08/19 History INSULIN LISPRO (humaLOG) [humaLOG] See Protocol SQ ACHS 09/14/18 02/08/19 History Hydrocodone/Acetaminophen [[place] 1 tab PO BID PRN 10/27/18 02/08/19 History 7.5-325] Sennosides-Docusate Sodium 1 tab PO BID 10/27/18 02/08/19 History [Senokot-S] Nitroglycerin Sl Tabs [Nitrostat] 0.4 mg SUBLINGUAL Q5M PRN #30 tab 11/02/18 02/08/19 Rx Losartan [Cozaar] 25 mg PO HS 11/17/18 02/08/19 History Metoprolol Tartrate [Lopressor] 25 mg PO BID #60 tab 12/01/18 02/08/19 Rx Insulin Glargine [Lantus] 45 unit SQ QAM 12/14/18 02/08/19 History Amiodarone [Cordarone] 200 mg PO DAILY 02/08/19 02/08/19 History Gabapentin 600 mg PO TID 02/08/19 02/08/19 History Isosorbide Mononitrate ER [Imdur] 15 mg PO DAILY 02/08/19 02/08/19 History Allergies Allergy/AdvReac Type Severity Reaction Status Date / Time Iodinated Contrast Media Allergy Rash/Hives Verified 02/08/19 11:02 iodine Allergy Rash/Hives Verified 02/08/19 11:02 Penicillins Allergy Swelling Verified 02/08/19 11:02 duloxetine [From Cymbalta] AdvReac PRICKLY Verified 02/08/19 11:02 FEELING IN HEAD povidone-iodine AdvReac Itchy,red Verified 02/08/19 11:02 [From Betadine] skin soap [From Betadine] AdvReac Itchy,red Verified 02/08/19 11:02 skin Surgical Scrub AdvReac Unknown Itching, Uncoded 02/08/19 10:01 Red skin Physical Exam Vitals: Vital Signs Temp Pulse Pulse Resp BP BP Pulse Ox 02/08/19 19:32 98.6 F 55 L 18 121/58 95 02/08/19 16:00 97.8 F 53 L 19 104/49 94 L 02/08/19 13:30 98.2 F 57 L 19 123/64 93 L 02/08/19 12:58 99.1 F 60 18 105/55 96 02/08/19 12:43 62 18 120/67 98 02/08/19 09:58 98.6 F 67 20 107/60 96 Intake and Output 02/08/19 02/08/19 02/08/19 06:59 14:59 22:59 Other: Voiding Method Urinal # Voids 1 Weight 92.533 kg Results CBC & Chem 7: 02/08/19 10:21 02/08/19 10:21 Labs: Abnormal Lab Results - Last 24 Hours (Table) 02/08/19 02/08/19 Range/Units 10:21 10:21 WBC 12.6 H (3.8-10.6) k/uL Neutrophils # 10.1 H (1.3-7.7) k/uL BUN 21 H (9-20) mg/dL Glucose 198 H (74-99) mg/dL Thrombosis Risk Factor Assmnt - Choose All That Apply Any of the Below Risk Factors Present?: Yes Each Factor Represents 1 point: Obesity (BMI >25) Other Risk Factors: Yes Each Risk Factor Represents 3 Points: Age 75 years or older Other congenital or acquired thrombophilia - If yes, enter type in comment: No Thrombosis Risk Factor Assessment Total Risk Factor Score: 4 Thrombosis Risk Factor Assessment Level: Moderate Risk
[2019-02-08] MEDS ORDERED: PRAVASTATIN SODIUM 40 MG TAB PO SCH (21:00)
[2019-02-08] MEDS ORDERED: LOSARTAN 25 MG TAB PO SCH (21:00)
[2019-02-08] MEDS ORDERED: TAMSULOSIN 0.4 MG CAP.ER.24H PO SCH (21:00)
[2019-02-08] MEDS: METOPROLOL TARTRATE 25 MG TAB PO SCH (22:30)
[2019-02-08] MEDS: SENNOSIDES-DOCUSATE SODIUM 1 EACH TAB PO SCH (22:30)
[2019-02-08] MEDS: HYDROcodone/APAP 7.5-325MG 1 EACH TAB PO PRN (22:31)
[2019-02-09] MEDS: traMADol 50 MG TAB PO PRN ×2 (00:19→09:55)
[2019-02-09 07:19] LABS: Glucose,Whole Blood 100 mg/dL (75-99)
[2019-02-09] MEDS: SENNOSIDES-DOCUSATE SODIUM 1 EACH TAB PO SCH (08:47)
[2019-02-09] MEDS: CALCIUM CARBONATE LIQUID 500 MG/5 ML CUP PO SCH ×2 (08:47→12:52)
[2019-02-09] MEDS: METOPROLOL TARTRATE 25 MG TAB PO SCH (08:47)
[2019-02-09] MEDS: GABAPENTIN 300 MG CAP PO SCH (08:47)
[2019-02-09] MEDS: ARTIFICIAL TEARS-HYPROMELLOSE DROPS 15 ML BTL BOTH EYES SCH (08:48)
[2019-02-09] MEDS: DICYCLOMINE 10 MG CAP PO SCH (08:48)
[2019-02-09] MEDS: HYDROcodone/APAP 7.5-325MG 1 EACH TAB PO PRN (08:53)
[2019-02-09] MEDS ORDERED: ASPIRIN 81 MG PO SCH (09:00)
[2019-02-09] MEDS ORDERED: INSULIN DETEMIR (LEVEMIR) 100 UNIT/ML SYR SQ SCH (09:00)
[2019-02-09] MEDS ORDERED: CLOPIDOGREL 75 MG TAB PO SCH (09:00)
[2019-02-09] MEDS ORDERED: AMIODARONE 200 MG TAB PO SCH (09:00)
[2019-02-09] MEDS ORDERED: MULTIVITAMINS, THERA 1 EACH TAB PO SCH (09:00)
[2019-02-09] MEDS ORDERED: ISOSORBIDE MONONITRATE ER 15 MG TAB PO SCH (09:00)
[2019-02-09] MEDS ORDERED: METOPROLOL TARTRATE 25 MG TAB PO STA (09:33)
--- NOTE | 2019-02-09 09:37 | P.CRDCN ---
History of Present Illness History of present illness: HISTORY OF PRESENTING ILLNESS This is a pleasant 79-year-old male past medical history significant for coronary artery disease s/p bypass grafting s/p stent placement of the distal anastomosis of the SVG-cx 11/01/2018, ventricular tachycardia, systolic heart failure, ischemic cardiomyopathy, hypertension, dyslpidemia, diabetes mellitus and dementia. He follows in the office with Dr. Aponte. We have been asked to see in consultation for chest pain. He is seen and examined laying flat in bed in no acute distress. he is somewhat of a poor historian and vague about his symptoms. He initially describes right lower quadrant abdominal discomfort and states this as his reason for coming to the hospital. He denies chest pain, shortness of breath, dizziness or palpitations. No nausea or vomiting. Reading ER documentation indicates he was having chest pain on arrival. When questioned he denies remembering this. He does state that he has chest pain from time to time with no specific aggravating or alleviating factors. He recently underwent successful PCI of the SVG-cx and came back the following month with chest pain and had a repeat catheterization that showed patent stents in the SVG to OM, SVG to distal RCA. At that time there was evidence of nonsustained ventricular tac hycardia. Amiodarone was initiated. Lengthy discussion with the family regarding AICD placement and they opted for maximum medical therapy. DIAGNOSTICS EKG reveals sinus mechanism, right bundle branch block, left anterior fascicular block and poor R-wave progression. Chest xray mild interstitial prominence. Laboratory reviewed, WBC 12.6,hemoglobin 13.4, platelets 151, sodium 139, potassium 4.2, creatinine 0.96, magnesium 1.6,cardiac enzymes negative 3, NT proBNP 834. Current cardiac medications include pravastatin 40 mg daily, Lopressor 25 mg twice a day, losartan 25 mg at bedtime, Imdur 15 mg daily, Plavix 75 mg daily, aspirin 81 mg daily and amiodarone 200 mg daily. most recent echocardiogram obtained September 2018 reveals impaired LV systolic function with ejection fraction 35-40%, inferior and septal hypokinesia, mild MR and mild TR. REVIEW OF SYSTEMS At the time of my exam: CONSTITUTIONAL: Denies fever or chills. CARDIOVASCULAR: Denies chest pain, shortness of breath, orthopnea, PND or palpitations. RESPIRATORY: Denies cough. GASTROINTESTINAL: Denies abdominal pain, diarrhea, constipation, nausea or vomiting. MUSCULOSKELETAL: Denies myalgias. NEUROLOGIC: Denies numbness, tingling or weakness. ENDOCRINE: Denies fatigue, weight change, polydipsia or polyurina. GENITOURINARY: Denies burning, hematuria or urgency with micturation. HEMATOLOGIC: Denies history of anemia or bleeding. PHYSICAL EXAMINATION Blood pressure 163/72 heart rate 66 afebrile and maintaining oxygen saturation on room air. CONSTITUTIONAL: No apparent distress. HEENT: Head is normocephalic. Pupils are equal, round. Sclerae anicteric. Mucous membranes of the mouth are moist. No JVD. No carotid bruit. CHEST EXAMINATION: Lungs are clear to auscultation. No chest wall tenderness is noted on palpation or with deep breathing. HEART EXAMINATION: Regular rate and rhythm. S1, S2 heard. No murmurs, gallops or rub. ABDOMEN: Soft, nontender. Positive bowel sounds. EXTREMITIES: 2+ peripheral pulses, no lower extremity edema and no calf tenderness. NEUROLOGIC EXAMINATION: Patient is awake, alert and oriented x3. ASSESSMENT Chest pain, atypical. An acute coronary event has been ruled out. Abdominal pain, unknown etiology Leukocytosis History of coronary artery disease status post bypass grafting and subsequent stent placement Nonsustained ventricular tachycardia maintained on amiodarone Ischemic cardiomyopathy, ejection fraction 35-40% Chronic systolic heart failure, currently euvolemic Hypertension Dyslipidemia Diabetes mellitus PLAN An acute coronary event has been ruled out. Recommend increasing beta robert to 50 mg BID. Continue to maximize his medical therapy. No further cardiac intervention recommended at this time. Ongoing medical evaluation of abdominal pain. Follow up with Dr. Aponte upon discharge. Thank you kindly for this consultation. Nurse Practitioner note has been reviewed, I agree with a documented findings and plan of care. Patient was seen and examined. Past Medical History Past Medical History: Coronary Artery Disease (CAD), Cancer, Diabetes Mellitus, GERD/Reflux, Hyperlipidemia, Hypertension, Memory Impairment, Osteoarthritis (OA), Pneumonia, Prostate Disorder, Sleep Apnea/CPAP/BIPAP Additional Past Medical History / Comment(s): [place] 08/23/[address]/cardiogenic shock/balloon pump/CHB with temporary pacer/thrombocytopenia. 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, IDDM type II, sepsis History of Any Multi-Drug Resistant Organisms: MRSA Date of last positivie culture/infection: 08/30/18 MDRO Source:: Sputum Past Surgical History: Appendectomy, Back Surgery, Cholecystectomy, Coronary Bypass/CABG, Heart Catheterization, Heart Catheterization With Stent, Hernia Repair, Joint Replacement, Orthopedic Surgery Additional Past Surgical History / Comment(s): 08/23/18 PCI with stent to RCA, c ardiac caths, 2008 CABG 3 vessels, inguinal and incisional hernia repairs, triple incisional hernia repair/lysis of adhesions, multiple surgeries for abdominal adhessions, fatty tumors removed posterior neck, ORIF R ankle/R tib fib, total L knee arthroplasty, L rotator cuff repair, bilateral carpal tunnel releases, colonoscopies/bening polyp, EGDs. Past Anesthesia/Blood Transfusion Reactions: No Reported Reaction Date of Last Stent Placement:: 08/23/18 Past Psychological History: Anxiety Additional Psychological History / Comment(s): Pt resides with his spouse. He uses a cane to ambulate. He has not been driving recently d/t health reasons. His spouse and family drive him to [employer]. Smoking Status: Never smoker Past Alcohol Use History: None Reported Past Drug Use History: None Reported - Past Family History Father History Unknown: Yes Family Medical History: Cancer Additional Family Medical History / Comment(s): PROSTATE CANCER Son(s) Family Medical History: Cancer Additional Family Medical History / Comment(s): TESTICULAR CANCER Mother Family Medical History: Coronary Artery Disease (CAD), Hypertension Sister(s) Family Medical History: Cancer Medications and Allergies Home Medications Medication Instructions Recorded Confirmed Type Cholecalciferol [Vitamin D3 (25 1,000 unit PO HS 07/14/15 02/08/19 History Mcg = 1000 Iu)] Tamsulosin [Flomax] 0.4 mg PO HS 07/14/17 02/08/19 History Pravastatin Sodium [Pravachol] 40 mg PO HS 08/03/17 02/08/19 History Multivitamins, Thera [Multivitamin 1 tab PO DAILY 07/04/18 02/08/19 History (formulary)] Aspirin 81 mg PO DAILY chew 09/06/18 02/08/19 Rx Clopidogrel [Plavix] 75 mg PO DAILY tab 09/06/18 02/08/19 Rx Artificial Tears-Hypromellose 1 drops BOTH EYES TID 09/11/18 02/08/19 History [Artificial Tear Drops] traMADol HCL [Ultram] 50 mg PO Q6H PRN #12 tablet 09/13/18 02/08/19 Rx Acetaminophen Tab [Tylenol] 650 mg PO Q6H PRN 09/14/18 02/08/19 History Dicyclomine [Bentyl] 10 mg PO TID 09/14/18 02/08/19 History INSULIN LISPRO (humaLOG) [humaLOG] See Protocol SQ ACHS 09/14/18 02/08/19 History Hydrocodone/Acetaminophen [[place] 1 tab PO BID PRN 10/27/18 02/08/19 History 7.5-325] Sennosides-Docusate Sodium 1 tab PO BID 10/27/18 02/08/19 History [Senokot-S] Nitroglycerin Sl Tabs [Nitrostat] 0.4 mg SUBLINGUAL Q5M PRN #30 tab 11/02/18 02/08/19 Rx Losartan [Cozaar] 25 mg PO HS 11/17/18 02/08/19 History Metoprolol Tartrate [Lopressor] 25 mg PO BID #60 tab 12/01/18 02/08/19 Rx Insulin Glargine [Lantus] 45 unit SQ QAM 12/14/18 02/08/19 History Amiodarone [Cordarone] 200 mg PO DAILY 02/08/19 02/08/19 History Gabapentin 600 mg PO TID 02/08/19 02/08/19 History Isosorbide Mononitrate ER [Imdur] 15 mg PO DAILY 02/08/19 02/08/19 History Allergies Allergy/AdvReac Type Severity Reaction Status Date / Time Iodinated Contrast Media Allergy Rash/Hives Verified 02/08/19 11:02 iodine Allergy Rash/Hives Verified 02/08/19 11:02 Penicillins Allergy Swelling Verified 02/08/19 11:02 duloxetine [From Cymbalta] AdvReac PRICKLY Verified 02/08/19 11:02 FEELING IN HEAD povidone-iodine AdvReac Itchy,red Verified 02/08/19 11:02 [From Betadine] skin soap [From Betadine] AdvReac Itchy,red Verified 02/08/19 11:02 skin Surgical Scrub AdvReac Unknown Itching, Uncoded 02/08/19 10:01 Red skin Physical Exam Vitals: Vital Signs Temp Pulse Pulse Resp BP BP Pulse Ox 02/09/19 08:00 98.6 F 66 17 163/72 95 02/09/19 04:00 98.8 F 60 18 164/73 91 L 02/08/19 23:54 98.7 F 61 18 164/73 94 L 02/08/19 19:32 98.6 F 55 L 18 121/58 95 02/08/19 16:00 97.8 F 53 L 19 104/49 94 L 02/08/19 13:30 98.2 F 57 L 19 123/64 93 L 02/08/19 12:58 99.1 F 60 18 105/55 96 02/08/19 12:43 62 18 120/67 98 02/08/19 09:58 98.6 F 67 20 107/60 96 Intake and Output 02/08/19 02/09/19 02/09/19 22:59 06:59 14:59 Output Total 750 Balance -750 Output: Urine 750 Other: Voiding Method Urinal Urinal # Voids 1 Results 02/08/19 10:21 02/08/19 10:21 Cardiac Enzymes 02/08/19 02/08/19 02/08/19 Range/Units 10:21 10:21 18:00 AST 25 (17-59) U/L Troponin I 0.016 0.019 (0.000-0.034) ng/mL 02/08/19 Range/Units 22:16 AST (17-59) U/L Troponin I 0.014 (0.000-0.034) ng/mL Coagulation 02/08/19 Range/Units 10:21 PT 9.6 (9.0-12.0) sec APTT 22.1 (22.0-30.0) sec CBC 02/08/19 Range/Units 10:21 WBC 12.6 H (3.8-10.6) k/uL RBC 4.62 (4.30-5.90) m/uL Hgb 13.4 (13.0-17.5) gm/dL Hct 41.0 (39.0-53.0) % Plt Count 151 (150-450) k/uL Comprehensive Metabolic Panel 02/08/19 Range/Units 10:21 Sodium 139 (137-145) mmol/L Potassium 4.2 (3.5-5.1) mmol/L Chloride 103 (98-107) mmol/L Carbon Dioxide 27 (22-30) mmol/L BUN 21 H (9-20) mg/dL Creatinine 0.96 (0.66-1.25) mg/dL Glucose 198 H (74-99) mg/dL Calcium 9.1 (8.4-10.2) mg/dL AST 25 (17-59) U/L ALT 29 (21-72) U/L Alkaline Phosphatase 74 (38-126) U/L Total Protein 6.5 (6.3-8.2) g/dL Albumin 4.0 (3.5-5.0) g/dL Current Medications Generic Name Dose Route Start Last Admin Trade Name Freq PRN Reason Stop Dose Admin Acetaminophen 650 mg 02/08/19 12:11 Tylenol Tab PO Q6HR PRN Mild Pain or Fever > 100.5 Hydrocodone Bitart/Acetaminophen 1 each 02/08/19 14:54 02/09/19 08:53 [place] 7.5-325 PO 1 each BID PRN Administration Pain Amiodarone HCl 200 mg 02/09/19 09:00 02/09/19 08:48 Cordarone PO 200 mg DAILY AALIYAH Administration Artificial Tears 1 drops 02/08/19 16:00 02/09/19 08:48 Artificial Tear Drops BOTH EYES Not Given TID AALIYAH Aspirin 81 mg 02/09/19 09:00 02/09/19 08:47 Aspirin PO 81 mg DAILY AALIYAH Administration Calcium Carbonate/Glycine 500 mg 02/08/19 17:30 02/09/19 08:47 Tums Liquid PO 500 mg TID-W/MEALS AALIYAH Administration Clopidogrel Bisulfate 75 mg 02/09/19 09:00 02/09/19 08:47 Plavix PO 75 mg DAILY AALIYAH Administration Dicyclomine HCl 10 mg 02/08/19 16:00 02/09/19 08:48 Bentyl PO 10 mg TID AALIYAH Administration Gabapentin 600 mg 02/08/19 16:00 02/09/19 08:47 Neurontin PO 600 mg TID AALIYAH Administration Ibuprofen 400 mg 02/08/19 12:11 02/08/19 14:01 Motrin PO 400 mg Q6HR PRN Administration Mild Pain or Fever > 100.5 Insulin Detemir 45 unit 02/09/19 09:00 02/09/19 08:48 Levemir SQ 45 unit QAM AALIYAH Administration Isosorbide Mononitrate 15 mg 02/09/19 09:00 02/09/19 08:47 Imdur PO 15 mg DAILY AALIYAH Administration Losartan Potassium 25 mg 02/08/19 21:00 02/08/19 22:30 Cozaar PO 25 mg HS AALIYAH Administration Metoprolol Tartrate 25 mg 02/08/19 21:00 02/09/19 08:47 Lopressor PO 25 mg BID AALIYAH Administration Multivitamins 1 each 02/09/19 09:00 02/09/19 08:47 Theragran PO 1 each DAILY AALIYAH Administration Naloxone HCl 0.2 mg 02/08/19 12:11 Narcan IV Q2M PRN Opioid Reversal Nitroglycerin 0.4 mg 02/08/19 14:54 Nitrostat SUBLINGUAL Q5M PRN Chest Pain Pravastatin Sodium 40 mg 02/08/19 21:00 02/08/19 22:30 Pravachol PO 40 mg HS AALIYAH Administration Senna/Docusate Sodium 1 each 02/08/19 21:00 02/09/19 08:47 Senokot-S PO 1 each BID AALIYAH Administration Tamsulosin HCl 0.4 mg 02/08/19 21:00 02/08/19 22:30 Flomax PO 0.4 mg HS AALIYAH Administration Tramadol HCl 50 mg 02/08/19 14:54 02/09/19 00:19 Ultram PO 50 mg Q6H PRN Administration Pain Intake and Output 02/08/19 02/09/19 02/09/19 22:59 06:59 14:59 Output Total 750 Balance -750 Output: Urine 750 Other: Voiding Method Urinal Urinal # Voids 1 02/08/19 10:21 02/08/19 10:21
[2019-02-09 11:04] VITALS: BP 116/61; PULSE 55; RESP 19; TEMP 99
[2019-02-09 11:42] LABS: Glucose,Whole Blood 176 mg/dL (75-99)
--- NOTE | 2019-02-09 20:19 | P.DS ---
Providers Date of admission: 02/08/19 12:11 Expected date of discharge: 02/09/19 Attending physician: Amos Yañez Consults: 02/08/19 15:04 Consult Physician Routine Consulting Provider: Mendoza Pearson Consult Reason/Comments: cp Do you want consulting provider notified?: Yes Primary care physician: Dean Evangelista [facility] Hospital Course: Chief Complaint: epigastric fullness Hospital course: This is 79-year-old patient of Dr. Dean Evangelista. Chronic stable medical conditions include diabetes, hyperlipidemia, hypertension, osteoarthritis, obstructive sleep apnea. Patient's previously had coronary bypass. Patient was admitted and discharged from the hospital on September 07 l. admitted for acute non-Q-wave myocardial infarction. Had a cardiac catheterization was found a significant coronary artery disease. Patient had a stent to the RCA emergently. Also PDA branch of RCA as well as stenting to the saphenous vein graft to the marginal was performed. Patient also required intra-aortic balloon pump and a temporary pacemaker. Subsequently patient had a tumultuous course and admitted to ICU. Patient was on the ventilator. Patient also was then delirious. Patient subsequently was transferred to inpatient rehab. Patient's has chronic abdominal pain on and off. Has been told that he is got strictures. . Patient not a good historian rather forgetful. Patient was admitted on October 27 with recurrent chest pain. Seen by cardiology and patient was discharged home . Patient was to keep his scheduled later in the month for cardiac catheterization. Upon return home patient started having more chest pains. Readmitted.Patient underwent. angioplasty and stenting . of the distal anastomosis of SVG to left circumflex. Discharged on 11/01/2018. Patient was readmitted on November 17 with chest pain. Patient was observed and discharged home the following day. Patient admitted on December 14 chest pain. . Admitted with unstable angina. P atient also found to have nonsustained monomorphic ventricular tachycardia. patient now presents with episode of fullness in the epigastric. [place] like gas. He also had a bloating sensation. Also adjoining it is a chest had some chest pressure. That lasted for a few hours. Because of his cardiac history presented to the ER was admitted to rule out a cardiac cause. this was felt to be dyspepsia. GERD. Not felt to be cardiac. Seen by cardiology. Prilosec was added. Care was discussed with the patient and the . consultation: Dr. Pearson from cardiology Physical examination: VITAL SIGNS: 99, 55, 19, 1 on , 93% on room air GENERAL: Laying in bed, comfortable EYES: Pupils equal. Conjunctiva normal. HEENT: External appearance of nose and ears normal, oral cavity grossly normal. NECK: JVD not raised; masses not palpable. HEART: First and second heart sounds are normal; no edema. LUNGS: Respiratory rate normal; decreased breath sounds. ABDOMEN: Soft, nontender, liver spleen not palpable, no masses palpable. PSYCH: Able to answer simple questions though rather forgetful. INVESTIGATIONS, reviewed in the clinical context white count 2.6 hemoglobin 13.4 progression 4.2 creatinine 0.96 Chest x-ray film personally reviewed by me-some chronic changes in the lungs EKG tracing-right bundle-branch block pattern, with sinus rhythm troponin I 0.019, 0.014 Discharge diagnosis: -acute on chronic GERD, POA -Coronary artery disease with severe significant disease to the left main and right coronary artery. -Diabetes mellitus type 2 chronically on insulin -Hyperlipidemia -Primary osteoarthritis -obstructive. 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 Was followed by Dr. Arroyo -Mild -moderate cognitive impairment -CODE STATUS DO NOT RESUSCITATE from prior admissions disposition: Home Patient Condition at Discharge: Stable Plan - Discharge Summary Discharge Rx Participant: No New Discharge Prescriptions: New Metoprolol Tartrate [Lopressor] 50 mg PO BID #60 tab Continue Cholecalciferol [Vitamin D3 (25 Mcg = 1000 Iu)] 1,000 unit PO HS Tamsulosin [Flomax] 0.4 mg PO HS Pravastatin Sodium [Pravachol] 40 mg PO HS Multivitamins, Thera [Multivitamin (formulary)] 1 tab PO DAILY Aspirin 81 mg PO DAILY chew Clopidogrel [Plavix] 75 mg PO DAILY tab Artificial Tears-Hypromellose [Artificial Tear Drops] 1 drops BOTH EYES TID traMADol HCL [Ultram] 50 mg PO Q6H PRN #12 tablet PRN Reason: Pain INSULIN LISPRO (humaLOG) [humaLOG] See Protocol SQ ACHS Dicyclomine [Bentyl] 10 mg PO TID Acetaminophen Tab [Tylenol] 650 mg PO Q6H PRN PRN Reason: Pain Hydrocodone/Acetaminophen [[place] 7.5-325] 1 tab PO BID PRN PRN Reason: Pain Sennosides-Docusate Sodium [Senokot-S] 1 tab PO BID Nitroglycerin Sl Tabs [Nitrostat] 0.4 mg SUBLINGUAL Q5M PRN #30 tab PRN Reason: Chest Pain Losartan [Cozaar] 25 mg PO HS Insulin Glargine [Lantus] 45 unit SQ QAM Amiodarone [Cordarone] 200 mg PO DAILY Gabapentin 600 mg PO TID Isosorbide Mononitrate ER [Imdur] 15 mg PO DAILY Discontinued Metoprolol Tartrate [Lopressor] 25 mg PO BID #60 tab Discharge Medication List Cholecalciferol [Vitamin D3 (25 Mcg = 1000 Iu)] 1,000 unit PO HS 07/14/15 [History] Tamsulosin [Flomax] 0.4 mg PO HS 07/14/17 [History] Pravastatin Sodium [Pravachol] 40 mg PO HS 08/03/17 [History] Multivitamins, Thera [Multivitamin (formulary)] 1 tab PO DAILY 07/04/18 [History] Aspirin 81 mg PO DAILY chew 09/06/18 [Rx] Clopidogrel [Plavix] 75 mg PO DAILY tab 09/06/18 [Rx] Artificial Tears-Hypromellose [Artificial Tear Drops] 1 drops BOTH EYES TID 09/11/18 [History] traMADol HCL [Ultram] 50 mg PO Q6H PRN #12 tablet 09/13/18 [Rx] Acetaminophen Tab [Tylenol] 650 mg PO Q6H PRN 09/14/18 [History] Dicyclomine [Bentyl] 10 mg PO TID 09/14/18 [History] INSULIN LISPRO (humaLOG) [humaLOG] See Protocol SQ ACHS 09/14/18 [History] Hydrocodone/Acetaminophen [[place] 7.5-325] 1 tab PO BID PRN 10/27/18 [History] Sennosides-Docusate Sodium [Senokot-S] 1 tab PO BID 10/27/18 [History] Nitroglycerin Sl Tabs [Nitrostat] 0.4 mg SUBLINGUAL Q5M PRN #30 tab 11/02/18 [Rx] Losartan [Cozaar] 25 mg PO HS 11/17/18 [History] Insulin Glargine [Lantus] 45 unit SQ QAM 12/14/18 [History] Amiodarone [Cordarone] 200 mg PO DAILY 02/08/19 [History] Gabapentin 600 mg PO TID 02/08/19 [History] Isosorbide Mononitrate ER [Imdur] 15 mg PO DAILY 02/08/19 [History] Metoprolol Tartrate [Lopressor] 50 mg PO BID #60 tab 02/09/19 [Rx] Follow up Appointment(s)/Referral(s): Dean Evangelista MD [Primary Care Provider] - 1-2 days Erlinda Moreno MD [STAFF PHYSICIAN] - 2 Weeks (The office will call you with a follow-up appointment.) Discharge Disposition: HOME SELF-CARE
[2019-02-09] MEDS ORDERED: METOPROLOL TARTRATE 50 MG TAB PO SCH (21:00)
== END 2019-02-09 13:30 | disposition home or self-care (01) ==
LOC: EC 09:52 → 1SOBS 12:11
PROVIDERS: ADMIT Hospitalist; ATTEND Hospitalist
DX: K21.9 Gastro-esophageal reflux disease without esophagitis (principal); I25.10 Atherosclerotic heart disease of native coronary artery without angina pectoris; E11.9 Type 2 diabetes mellitus without complications; E78.5 Hyperlipidemia, unspecified; M19.90 Unspecified osteoarthritis, unspecified site; G47.33 Obstructive sleep apnea (adult) (pediatric); N13.8 Other obstructive and reflux uropathy; G89.29 Other chronic pain; R10.9 Unspecified abdominal pain; G31.84 Mild cognitive impairment of uncertain or unknown etiology; D72.829 Elevated white blood cell count, unspecified; I47.2 Ventricular tachycardia; I25.5 Ischemic cardiomyopathy; I11.0 Hypertensive heart disease with heart failure; I50.22 Chronic systolic (congestive) heart failure; I25.2 Old myocardial infarction; K57.90 Diverticulosis of intestine, part unspecified, without perforation or abscess without bleeding; K58.9 Irritable bowel syndrome, unspecified; N40.1 Benign prostatic hyperplasia with lower urinary tract symptoms; F41.9 Anxiety disorder, unspecified; I45.2 Bifascicular block; E66.9 Obesity, unspecified; Z68.32 Body mass index [BMI] 32.0-32.9, adult; Z66 Do not resuscitate; Z95.1 Presence of aortocoronary bypass graft; Z95.5 Presence of coronary angioplasty implant and graft; Z79.899 Other long term (current) drug therapy; Z79.4 Long term (current) use of insulin; Z79.891 Long term (current) use of opiate analgesic; Z79.82 Long term (current) use of aspirin; Z79.02 Long term (current) use of antithrombotics/antiplatelets; Z91.041 Radiographic dye allergy status; Z91.048 Other nonmedicinal substance allergy status; Z88.0 Allergy status to penicillin; Z88.8 Allergy status to other drugs, medicaments and biological substances; Z85.46 Personal history of malignant neoplasm of prostate; Z92.3 Personal history of irradiation; Z87.01 Personal history of pneumonia (recurrent); Z86.010 Personal history of colon polyps; Z86.14 Personal history of Methicillin resistant Staphylococcus aureus infection; Z90.49 Acquired absence of other specified parts of digestive tract; Z98.890 Other specified postprocedural states; Z96.652 Presence of left artificial knee joint; Z87.81 Personal history of (healed) traumatic fracture; Z86.69 Personal history of other diseases of the nervous system and sense organs; Z80.42 Family history of malignant neoplasm of prostate; Z80.43 Family history of malignant neoplasm of testis; Z82.49 Family history of ischemic heart disease and other diseases of the circulatory system; Z80.9 Family history of malignant neoplasm, unspecified
CPT/HCPCS: 93005 ×2; 99285; 36415; 83880; 80053; 83735; 84484; 85025; 85610; 85730; 71046; G0378 ×2

== ENCOUNTER 2021-03-13 15:26 | Inpatient (IN) | payer MEDICARE, BC ==
--- NOTE | 2021-03-13 16:19 | ED ---
Weakness HPI - General Chief complaint: Weakness Stated complaint: Weakness Time Seen by Provider: 03/13/21 16:05 Source: patient, family Mode of arrival: wheelchair - History of Present Illness Initial comments: 81 year-old male patient presents to the emergency department for evaluation of generalized weakness and edema to the legs and abdomen. Son believes he has had a 40lb weight gain over the last couple of weeks. States that he is more short of breath than usual. Patient sleeps sitting up. Denies any cough or congestion. Denies fever or chills. Denies vomiting or diarrhea. States he is urinating frequently, denies hematuria or dysuria. Does have history of CAD, has had CABG, history of heart failure. States he is not currently taking diuretics. He denies any chest pain or tightness. Patient denies any recent rash, abdominal pain, constipation, back pain, numbness, tingling, dizziness, weakness, headache, visual changes, or any other complaints. - Related Data Home Medications Medication Instructions Recorded Confirmed Tamsulosin [Flomax] 0.4 mg PO HS@209907/14/17 03/13/21 Pravastatin Sodium [Pravachol] 40 mg PO HS@209908/03/17 03/13/21 Multivitamins, Thera [Multivitamin 1 tab PO DAILY@0900 07/04/18 03/13/21 (formulary)] Acetaminophen Tab [Tylenol] 650 mg PO Q6H PRN 09/14/18 03/13/21 Hydrocodone/Acetaminophen [[place] 1 tab PO BID@0900,209910/27/18 03/13/21 7.5-325] Losartan [Cozaar] 25 mg PO HS@209911/17/18 03/13/21 Insulin Glargine [Lantus Vial] 60 unit SQ DAILY@0900 12/14/18 03/13/21 Amiodarone [Cordarone] 200 mg PO DAILY@0900 02/08/19 03/13/21 Gabapentin 600 mg PO TID@0900,1600,209902/08/19 03/13/21 Isosorbide Mononitrate ER [Imdur] 15 mg PO BID@0900,2100 02/08/19 03/13/21 Aspirin 81 mg PO DAILY@0900 03/13/21 03/13/21 Cholecalciferol [Vitamin D3 (25 25 mcg PO HS@2100 03/13/21 03/13/21 Mcg = 1000 Iu)] Clopidogrel [Plavix] 75 mg PO DAILY@0900 03/13/21 03/13/21 Docusate [Colace] 100 mg PO DAILY@0900 03/13/21 03/13/21 Hyoscyamine Sulfate [Hyoscyamine 0.125 mg SL TID PRN 03/13/21 03/13/21 Sulfate SL] INSULIN ASPART (NovoLOG) [NovoLOG See Protocol SQ ACHS 03/13/21 03/13/21 (formulary)] Levothyroxine Sodium [Synthroid] 25 mcg PO AC-BRKFST 03/13/21 03/13/21 Meclizine [Antivert] 25 mg PO TID PRN 03/13/21 03/13/21 Metoprolol Tartrate [Lopressor] 25 mg PO BID@0900,2100 03/13/21 03/13/21 Omeprazole 40 mg PO DAILY@0900 03/13/21 03/13/21 Zinc 50 mg PO DAILY@0900 03/13/21 03/13/21 Previous Rx's Medication Instructions Recorded traMADol HCL [Ultram] 50 mg PO Q6H PRN #12 tablet 09/13/18 Nitroglycerin Sl Tabs [Nitrostat] 0.4 mg SUBLINGUAL Q5M PRN #30 tab 11/02/18 Allergies Allergy/AdvReac Type Severity Reaction Status Date / Time Iodinated Contrast Media Allergy Rash/Hives Verified 03/13/21 18:39 iodine Allergy Rash/Hives Verified 03/13/21 18:39 Penicillins Allergy Swelling Verified 03/13/21 18:39 celecoxib [From Celebrex] AdvReac headache Verified 03/13/21 18:44 duloxetine [From Cymbalta] AdvReac PRICKLY Verified 03/13/21 18:39 FEELING IN HEAD povidone-iodine AdvReac Itchy,red Verified 03/13/21 18:39 [From Betadine] skin soap [From Betadine] AdvReac Itchy,red Verified 03/13/21 18:39 skin Surgical Scrub AdvReac Unknown Itching, Uncoded 02/08/19 10:01 Red skin Review of Systems ROS Statement: Those systems with pertinent positive or pertinent negative responses have been documented in the HPI. ROS Other: All systems not noted in ROS Statement are negative. Past Medical History Past Medical History: Coronary Artery Disease (CAD), Cancer, Diabetes Mellitus, GERD/Reflux, Hyperlipidemia, Hypertension, Memory Impairment, Osteoarthritis (OA), Pneumonia, Prostate Disorder, Sleep Apnea/CPAP/BIPAP Additional Past Medical History / Comment(s): [place] 08/23/[address]/car diogenic shock/balloon pump/CHB with temporary pacer/thrombocytopenia. 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, IDDM type II, sepsis History of Any Multi-Drug Resistant Organisms: MRSA Date of last positivie culture/infection: 08/30/18 MDRO Source:: Sputum Past Surgical History: Appendectomy, Back Surgery, Cholecystectomy, Coronary Bypass/CABG, Heart Catheterization, Heart Catheterization With Stent, Hernia Repair, Joint Replacement, Orthopedic Surgery Additional Past Surgical History / Comment(s): 08/23/18 PCI with stent to RCA, cardiac caths, 2008 CABG 3 vessels, inguinal and incisional hernia repairs, triple incisional hernia repair/lysis of adhesions, multiple surgeries for abdominal adhessions, fatty tumors removed posterior neck, ORIF R ankle/R tib fib, total L knee arthroplasty, L rotator cuff repair, bilateral carpal tunnel releases, colonoscopies/bening polyp, EGDs. Past Anesthesia/Blood Transfusion Reactions: No Reported Reaction Date of Last Stent Placement:: 08/23/18 Past Psychological History: Anxiety Smoking Status: Never smoker Past Alcohol Use History: None Reported Past Drug Use History: None Reported - Past Family History Father History Unknown: Yes Family Medical History: Cancer Additional Family Medical History / Comment(s): PROSTATE CANCER Son(s) Family Medical History: Cancer Additional Family Medical History / Comment(s): TESTICULAR CANCER Mother Family Medical History: Coronary Artery Disease (CAD), Hypertension Sister(s) Family Medical History: Cancer General Exam General appearance: alert, in no apparent distress, other (This is a well- developed, well-nourished adult male in no acute distress.) ENT exam: Present: normal exam, normal oropharynx, mucous membranes moist Respiratory exam: Present: decreased breath sounds. Absent: respiratory distress, wheezes, rales, rhonchi, stridor Cardiovascular Exam: Present: regular rate, normal rhythm, normal heart sounds. Absent: systolic murmur, diastolic murmur, rubs, gallop, clicks GI/Abdominal exam: Present: soft, normal bowel sounds. Absent: distended, tenderness, guarding, rebound, rigid Extremities exam: Present: full ROM, normal capillary refill, other (2+ pitting edema noted to the bilateral lower legs. Skin is warm and dry). Absent: tenderness, pedal edema, joint swelling, calf tenderness Neurological exam: Present: alert, oriented X3, CN II-XII intact Psychiatric exam: Present: normal affect, normal mood Skin exam: Present: warm, dry, intact, pallor. Absent: rash Course Vital Signs 03/13/21 03/13/21 15:32 18:20 Temperature 97.8 F Pulse Rate 63 63 Respiratory 18 22 Rate Blood Pressure 165/75 O2 Sat by Pulse 95 92 L Oximetry EKG Findings - EKG Comments: EKG Findings:: EKG obtained at 1632 shows sinus rhythm with first-degree AV block, right bundle tatiana block, left anterior fascicular block. Ventricular rate is 67, FL interval 210, QRS duration 186, QTc 500, QTc 528. No evidence of ST elevation or depression. Medical Decision Making - Medical Decision Making 81-year-old male patient presented to the emergency department today for weight gain, leg edema, abdomen edema. Examination did reveal 2+ pitting edema to the lower extremities, over the abdomen. Lung sounds are diminished. Vital signs were unremarkable. Labs reviewed and did reveal elevated BNP of 4870. Prominent 0.0-2. Urinalysis is negative. Tested negative for COVID-19. Patient did have evidence for pulmonary vascular congestion, cardiomegaly, possible superimposed pneumonia however patient is not coughing, white blood cell count is normal, he is afebrile. He will be admitted to the hospital for acute exacerbation of CHF. He is given a dose of Lasix. Started on a heart healthy diet. He is agreeable with this plan. My attending is Dr. Morris. - Lab Data Result diagrams: 03/13/21 16:38 03/13/21 16:38 Lab Results 01/14/22 01/14/22 01/14/22 Range/Units 16:38 16:38 16:38 WBC 7.6 (3.8-10.6) k/uL RBC 4.37 (4.30-5.90) m/uL Hgb 11.7 L (13.0-17.5) gm/dL Hct 38.6 L (39.0-53.0) % MCV 88.4 (80.0-100.0) fL MCH 26.8 (25.0-35.0) pg MCHC 30.4 L (31.0-37.0) g/dL RDW 15.8 H (11.5-15.5) % Plt Count 251 (150-450) k/uL MPV 7.9 Neutrophils % (Manual) 73 % Lymphocytes % (Manual) 17 % Monocytes % (Manual) 6 % Eosinophils % (Manual) 3 % Basophils % (Manual) 1 % Neutrophils # (Manual) 5.55 (1.3-7.7) k/uL Lymphocytes # (Manual) 1.29 (1.0-4.8) k/uL Monocytes # (Manual) 0.46 (0-1.0) k/uL Eosinophils # (Manual) 0.23 (0-0.7) k/uL Basophils # (Manual) 0.08 (0-0.2) k/uL Nucleated RBCs 0 (0-0) /100 WBC Manual Slide Review Performed Polychromasia Present Hypochromasia Marked PT (9.0-12.0) sec INR (<1.2) APTT (22.0-30.0) sec Sodium 137 (137-145) mmol/L Potassium 4.8 (3.5-5.1) mmol/L Chloride 102 (98-107) mmol/L Carbon Dioxide 25 (22-30) mmol/L Anion Gap 10 mmol/L BUN 25 H (9-20) mg/dL Creatinine 0.97 (0.66-1.25) mg/dL Est GFR (CKD-EPI)AfAm 84 (>60 ml/min/1.73 sqM) Est GFR (CKD-EPI)NonAf 73 (>60 ml/min/1.73 sqM) Glucose 121 H (74-99) mg/dL Calcium 9.1 (8.4-10.2) mg/dL Magnesium 1.7 (1.6-2.3) mg/dL Total Bilirubin 0.9 (0.2-1.3) mg/dL AST 73 H (17-59) U/L ALT 40 (4-49) U/L Alkaline Phosphatase 89 (38-126) U/L Troponin I (0.000-0.034) ng/mL NT-Pro-B Natriuret Pep 4870 pg/mL Total Protein 6.6 (6.3-8.2) g/dL Albumin 3.9 (3.5-5.0) g/dL 03/13/21 03/13/21 Range/Units 16:40 16:40 WBC (3.8-10.6) k/uL RBC (4.30-5.90) m/uL Hgb (13.0-17.5) gm/dL Hct (39.0-53.0) % MCV (80.0-100.0) fL MCH (25.0-35.0) pg MCHC (31.0-37.0) g/dL RDW (11.5-15.5) % Plt Count (150-450) k/uL MPV Neutrophils % (Manual) % Lymphocytes % (Manual) % Monocytes % (Manual) % Eosinophils % (Manual) % Basophils % (Manual) % Neutrophils # (Manual) (1.3-7.7) k/uL Lymphocytes # (Manual) (1.0-4.8) k/uL Monocytes # (Manual) (0-1.0) k/uL Eosinophils # (Manual) (0-0.7) k/uL Basophils # (Manual) (0-0.2) k/uL Nucleated RBCs (0-0) /100 WBC Manual Slide Review Polychromasia Hypochromasia PT 11.3 (9.0-12.0) sec INR 1.1 (<1.2) APTT 22.0 (22.0-30.0) sec Sodium (137-145) mmol/L Potassium (3.5-5.1) mmol/L Chloride (98-107) mmol/L Carbon Dioxide (22-30) mmol/L Anion Gap mmol/L BUN (9-20) mg/dL Creatinine (0.66-1.25) mg/dL Est GFR (CKD-EPI)AfAm (>60 ml/min/1.73 sqM) Est GFR (CKD-EPI)NonAf (>60 ml/min/1.73 sqM) Glucose (74-99) mg/dL Calcium (8.4-10.2) mg/dL Magnesium (1.6-2.3) mg/dL Total Bilirubin (0.2-1.3) mg/dL AST (17-59) U/L ALT (4-49) U/L Alkaline Phosphatase (38-126) U/L Troponin I 0.022 (0.000-0.034) ng/mL NT-Pro-B Natriuret Pep pg/mL Total Protein (6.3-8.2) g/dL Albumin (3.5-5.0) g/dL - Radiology Data Radiology results: report reviewed, image reviewed Chest x-ray was obtained. Report was reviewed in its entirety. Impression by Dr. Parsons shows congestive heart failure changes with cardiomegaly and mild pulmonary vascular congestion. Correlate with BNP. Superimposed atypical pneumonia not entirely excluded. Disposition Clinical Impression: Acute exacerbation of CHF (congestive heart failure) Disposition: ADMITTED IP TO THIS HOSP Condition: Serious Decision to Admit Reason: Admit from EC Decision Date: 03/13/21 Decision Time: 18:07
[2021-03-13] MEDS ORDERED: ONDANSETRON 4 MG/2 ML VIAL IVP STA (16:41)
[2021-03-13] MEDS ORDERED: MORPHINE SULFATE 2 MG/ML SYRINGE IVP STA (16:41)
[2021-03-13 16:56] LABS: HCT 38.6 % (39.0-53.0); HGB 11.7 gm/dL (13.0-17.5); Hypochromasia Marked; MCH 26.8 pg (25.0-35.0); MCHC 30.4 g/dL (31.0-37.0); MCV 88.4 fL (80.0-100.0); Mean Platelet Volume 7.9; Platelet Count 251 k/uL (150-450); RBC 4.37 m/uL (4.30-5.90); RDW 15.8 % (11.5-15.5); WBC 7.6 k/uL (3.8-10.6)
[2021-03-13 17:02] LABS: INR 1.1 (<1.2); Prothrombin Time 11.3 sec (9.0-12.0)
[2021-03-13 17:05] LABS: Albumin 3.9 g/dL (3.5-5.0); Calcium 9.1 mg/dL (8.4-10.2); Magnesium 1.7 mg/dL (1.6-2.3); Potassium 4.8 mmol/L (3.5-5.1); Total Bilirubin 0.9 mg/dL (0.2-1.3); Total Protein 6.6 g/dL (6.3-8.2)
--- NOTE | 2021-03-13 17:29 | XR ---
EXAMINATION TYPE: XR chest 1V DATE OF EXAM: 03/13/2021 5:13 PM COMPARISON:Chest radiographs from 02/08/2019 CLINICAL INDICATION:Male, 81 years old with history of Weakness; TECHNIQUE: Frontal view of the chest. FINDINGS: Lungs/Pleura: No evidence of focal consolidation or pneumothorax. Blunting of the right costophrenic angles is present. Scattered reticular opacities are present. Pulmonary vascularity: Pulmonary vascular congestion. Heart/mediastinum: Cardiomediastinal silhouette is enlarged. Musculoskeletal: No acute osseous pathology. Other findings: Midline sternotomy wires are noted and stable. IMPRESSION: Congestive heart failure changes with cardiomegaly and mild pulmonary vascular congestion. Correlate with BNP. Superimposed atypical pneumonia not entirely excluded.
[2021-03-13] MEDS ORDERED: FUROSEMIDE 10 MG/ML 4 ML VIAL IV STA (17:32)
[2021-03-13 17:37] LABS: Basophils # (M) 0.08 k/uL (0-0.2); Eosinophils # (M) 0.23 k/uL (0-0.7); Lymphocytes # (M) 1.29 k/uL (1.0-4.8); Monocytes # (M) 0.46 k/uL (0-1.0); Neutrophils # (M) 5.55 k/uL (1.3-7.7); Neutrophils % (M) 73 %; Nucleated Red Blood Cells 0 /100 WBC (0-0); Total Cells Counted 100
[2021-03-13 17:40] LABS: Polychromasia Present
[2021-03-13 18:36] LABS: Appearance,Urine Clear (Clear); Bilirubin,Urine Negative (Negative); Blood,Urine Negative (Negative); Color,Urine Yellow; Glucose,Urine (UA) Negative (Negative); Ketones,Urine Negative (Negative); Leukocyte Esterase,Urine Negative (Negative); Nitrite,Urine Negative (Negative); Protein,Urine Negative (Negative); Specific Gravity,Urine 1.014 (1.001-1.035); Urobilinogen,Urine <2.0 mg/dL (<2.0)
[2021-03-13] MEDS: FUROSEMIDE 10 MG/ML 4 ML VIAL IV SCH (21:23)
[2021-03-13 22:33] LABS: Glucose,Whole Blood 54 mg/dL (75-99)
[2021-03-13] MEDS ORDERED: DEXTROSE 50% SYRINGE 50 ML IVP ONE (22:48)
[2021-03-13 23:04] LABS: Glucose,Whole Blood 139 mg/dL (75-99)
[2021-03-13 23:04] LABS: Glucose,Whole Blood 64 mg/dL (75-99)
--- NOTE | 2021-03-14 02:38 | P.HPIM ---
History of Present Illness H&P Date: 03/13/21 Patient is an 81-year-old male with a PMH of systolic CHF, type II DM, hyperlipidemia, obstructive sleep apnea, coronary artery disease status post stenting, who was brought into the emergency room by his son due to gradually worsening generalized weakness, dryness of breath, weight gain, and lower extremity edema. History obtained from the chart since patient was a relatively poor historian at time of interview. He reported not knowing why he is at the hospital that he feels fine. He denied any active complaints. As per the chart however, the patient's son had endorsed that the patient has gained roughly 40 pounds of weight over the past few weeks that he has been endorsing shortness of breath and has been having to sleep in a recliner. Chest x-ray in the emergency room was consistent with pulmonary edema secondary to CHF with laboratory evaluation showing proBNP 4870, troponin 0.022. EKG reveals sinus rhythm with first-degree AV block with bifascicular block with LVH at 67 bpm. Review of systems: Pertinent positives and negatives as discussed in HPI, a complete review of sys tems was performed and all other systems are negative. Physical examination: General: Chronically ill-appearing male, no distress, appears at stated age, obese Derm: no unusual rashes/lesions no unusual ecchymoses, warm, dry Head: atraumatic, normocephalic, symmetric Eyes: EOMI, no lid lag, anicteric sclera, pupils equal round reactive to light ENT: Nose and ears atraumatic, no thrush, no pharyngeal erythema Neck: No thyromegaly, no cervical lymphadenopathy, trachea midline, supple Mouth: no lip lesion, mucus membranes moist Cardiovascular: S1S2 reg, no murmur, positive posterior tibial pulse bilateral, 2+ bilateral lower extremity pitting edema, capillary refill less than 2 seconds Lungs: Bibasilar rales, no rhonchi or wheezing, no accessory muscle use Abdominal: soft, nontender to palpation, no guarding, no appreciable organomegaly, normal bowel sounds Ext: no gross muscle atrophy, muscle strength 4 out of 5 in all 4 extremities grossly, no contractures, Neuro: CN II-XI grossly intact, light touch intact all 4 extremities, finger to nose within normal limits, Psych: Confused, oriented only to self and knows he is in hospital but unable to provide the name Assessment/plan Acute systolic CHF exacerbation -Continue with Lasix IV -Cardiology consult -Intake and output, daily weights, fluid restriction -Cardiac monitoring -Monitor electrodes daily Chronic conditions: Type II DM, hypertension, hyperlipidemia -Continue with home meds -Insulin sliding scale blood glucose monitoring -Check A1c DVT prophylaxis -Heparin subcu The patient is admitted with an anticipated greater than 2 midnight stay for evaluation of CHF CODE STATUS: Full Code Discussed with: Patient Anticipated discharge date: 2-[address]: Home Past Medical History Past Medical History: Coronary Artery Disease (CAD), Cancer, Diabetes Mellitus, GERD/Reflux, Hyperlipidemia, Hypertension, Memory Impairment, Osteoarthritis (OA), Pneumonia, Prostate Disorder, Sleep Apnea/CPAP/BIPAP Additional Past Medical History / Comment(s): [place] 08/23/[address]/cardiogenic shock/balloon pump/CHB with temporary pacer/thrombocytopenia. 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, IDDM type II, sepsis History of Any Multi-Drug Resistant Organisms: MRSA Date of last positivie culture/infection: 08/30/18 MDRO Source:: Sputum Past Surgical History: Appendectomy, Back Surgery, Cholecystectomy, Coronary Bypass/CABG, Heart Catheterization, Heart Catheterization With Stent, Hernia Repair, Joint Replacement, Orthopedic Surgery Additional Past Surgical History / Comment(s): 08/23/18 PCI with stent to RCA, cardiac caths, 2008 CABG 3 vessels, inguinal and incisional hernia repairs, triple incisional hernia repair/lysis of adhesions, multiple surgeries for abdominal adhessions, fatty tumors removed posterior neck, ORIF R ankle/R tib fib, total L knee arthroplasty, L rotator cuff repair, bilateral carpal tunnel releases, colonoscopies/bening polyp, EGDs. Past Anesthesia/Blood Transfusion Reactions: No Reported Reaction Date of Last Stent Placement:: 08/23/18 Past Psychological History: Anxiety Additional Psychological History / Comment(s): Pt resides with his spouse. He uses a cane to ambulate. He has not been driving recently d/t health reasons. His spouse and family drive him to [place]. Smoking Status: Never smoker Past Alcohol Use History: None Reported Past Drug Use History: None Reported - Past Family History Father History Unknown: Yes Family Medical History: Cancer Additional Family Medical History / Comment(s): PROSTATE CANCER Son(s) Family Medical History: Cancer Additional Family Medical History / Comment(s): TESTICULAR CANCER Mother Family Medical History: Coronary Artery Disease (CAD), Hypertension Sister(s) Family Medical History: Cancer Medications and Allergies Home Medications Medication Instructions Recorded Confirmed Type Tamsulosin [Flomax] 0.4 mg PO HS@209907/14/17 03/13/21 History Pravastatin Sodium [Pravachol] 40 mg PO HS@209908/03/17 03/13/21 History Multivitamins, Thera [Multivitamin 1 tab PO DAILY@89907/04/18 03/13/21 History (formulary)] traMADol HCL [Ultram] 50 mg PO Q6H PRN #12 tablet 09/13/18 03/13/21 Rx Acetaminophen Tab [Tylenol] 650 mg PO Q6H PRN 09/14/18 03/13/21 History Hydrocodone/Acetaminophen [[place] 1 tab PO BID@09,209910/27/18 03/13/21 History 7.5-325] Nitroglycerin Sl Tabs [Nitrostat] 0.4 mg SUBLINGUAL Q5M PRN #30 tab 11/02/18 03/13/21 Rx Losartan [Cozaar] 25 mg PO HS@209911/17/18 03/13/21 History Insulin Glargine [Lantus Vial] 60 unit SQ DAILY@0912/14/18 03/13/21 History Amiodarone [Cordarone] 200 mg PO DAILY@89902/08/19 03/13/21 History Gabapentin 600 mg PO TID@0900,1600,209902/08/19 03/13/21 History Isosorbide Mononitrate ER [Imdur] 15 mg PO BID@0900,209902/08/19 03/13/21 History Aspirin 81 mg PO DAILY@89903/13/21 03/13/21 History Cholecalciferol [Vitamin D3 (25 25 mcg PO HS@209903/13/21 03/13/21 History Mcg = 1000 Iu)] Clopidogrel [Plavix] 75 mg PO DAILY@89903/13/21 03/13/21 History Docusate [Colace] 100 mg PO DAILY@0900 03/13/21 03/13/21 History Hyoscyamine Sulfate [Hyoscyamine 0.125 mg SL TID PRN 03/13/21 03/13/21 History Sulfate SL] INSULIN ASPART (NovoLOG) [NovoLOG See Protocol SQ ACHS 03/13/21 03/13/21 History (formulary)] Levothyroxine Sodium [Synthroid] 25 mcg PO AC-BRKFST 03/13/21 03/13/21 History Meclizine [Antivert] 25 mg PO TID PRN 03/13/21 03/13/21 History Metoprolol Tartrate [Lopressor] 25 mg PO BID@0900,2100 03/13/21 03/13/21 History Omeprazole 40 mg PO DAILY@0900 03/13/21 03/13/21 History Zinc 50 mg PO DAILY@0900 03/13/21 03/13/21 History Allergies Allergy/AdvReac Type Severity Reaction Status Date / Time Iodinated Contrast Media Allergy Rash/Hives Verified 03/13/21 18:39 iodine Allergy Rash/Hives Verified 03/13/21 18:39 Penicillins Allergy Swelling Verified 03/13/21 18:39 celecoxib [From Celebrex] AdvReac headache Verified 03/13/21 18:44 duloxetine [From Cymbalta] AdvReac PRICKLY Verified 03/13/21 18:39 FEELING IN HEAD povidone-iodine AdvReac Itchy,red Verified 03/13/21 18:39 [From Betadine] skin soap [From Betadine] AdvReac Itchy,red Verified 03/13/21 18:39 skin Surgical Scrub AdvReac Unknown Itching, Uncoded 02/08/19 10:01 Red skin Physical Exam Vitals: Vital Signs Temp Pulse Pulse Resp BP BP Pulse Ox 03/13/21 20:53 97.9 F 58 L 18 158/80 91 L 03/13/21 20:00 58 L 18 03/13/21 19:28 76 03/13/21 18:20 63 22 165/75 92 L 03/13/21 15:32 97.8 F 63 18 95 Intake and Output 03/13/21 03/13/21 03/14/21 14:59 22:59 06:59 Output Total 700 Balance -700 Output: Urine 700 Other: Voiding Method Urinal Weight 106.141 kg Results CBC & Chem 7: 03/13/21 16:38 03/13/21 16:38 Labs: Abnormal Lab Results - Last 24 Hours (Table) 03/13/21 03/13/21 03/13/21 Range/Units 16:38 16:38 22:26 Hgb 11.7 L (13.0-17.5) gm/dL Hct 38.6 L (39.0-53.0) % MCHC 30.4 L (31.0-37.0) g/dL RDW 15.8 H (11.5-15.5) % BUN 25 H (9-20) mg/dL Glucose 121 H (74-99) mg/dL POC Glucose (mg/dL) 54 L (75-99) mg/dL AST 73 H (17-59) U/L 03/13/21 03/13/21 Range/Units 22:46 22:58 Hgb (13.0-17.5) gm/dL Hct (39.0-53.0) % MCHC (31.0-37.0) g/dL RDW (11.5-15.5) % BUN (9-20) mg/dL Glucose (74-99) mg/dL POC Glucose (mg/dL) 64 L 139 H (75-99) mg/dL AST (17-59) U/L Thrombosis Risk Factor Assmnt - Choose All That Apply Any of the Below Risk Factors Present?: No Other Risk Factors: Yes Each Risk Factor Represents 3 Points: Age 75 years or older Thrombosis Risk Factor Assessment Total Risk Factor Score: 3 Thrombosis Risk Factor Assessment Level: Moderate Risk
[2021-03-14 02:41] LABS: Glucose,Whole Blood 72 mg/dL (75-99)
[2021-03-14] MEDS ORDERED: DEXTROSE 50% SYRINGE 50 ML IVP ONE ×2 (03:38→06:21)
[2021-03-14 06:16] LABS: Glucose,Whole Blood 95 mg/dL (75-99)
[2021-03-14] MEDS: INSULIN ASPART (NovoLOG) 100 UNIT/ML VIAL SQ SCH ×4 (06:19→23:49)
[2021-03-14] MEDS: LEVOTHYROXINE 25 MCG TAB PO SCH (06:22)
[2021-03-14] MEDS: FUROSEMIDE 10 MG/ML 4 ML VIAL IV SCH ×2 (06:22→18:37)
[2021-03-14] MEDS: traMADol 50 MG TAB PO PRN ×2 (06:28→16:39)
[2021-03-14] MEDS ORDERED: METOPROLOL TARTRATE 25 MG TAB PO SCH (09:00)
[2021-03-14] MEDS ORDERED: ASPIRIN 325 MG TAB PO SCH (09:00)
[2021-03-14] MEDS ORDERED: AMIODARONE 200 MG TAB PO SCH (09:00)
[2021-03-14] MEDS: MULTIVITAMINS, THERA 1 EACH TAB PO SCH (09:10)
[2021-03-14] MEDS: GABAPENTIN 300 MG CAP PO SCH ×3 (09:10→21:26)
[2021-03-14] MEDS: CLOPIDOGREL 75 MG TAB PO SCH (09:10)
[2021-03-14] MEDS: ASPIRIN 81 MG PO SCH (09:10)
[2021-03-14] MEDS: ISOSORBIDE MONONITRATE ER 15 MG TAB PO SCH ×2 (09:10→21:27)
[2021-03-14] MEDS: HEPARIN SODIUM,PORCINE/PF 5,000 UNIT/0.5 ML SYRINGE SQ SCH ×3 (09:11→23:56)
[2021-03-14 10:50] LABS: Glucose,Whole Blood 107 mg/dL (75-99)
--- NOTE | 2021-03-14 11:27 | P.CRDCN ---
History of Present Illness Consult date: 03/14/21 Consult reason: congestive heart failure, shortness of breath Chief complaint: Shortness of breath History of present illness: This is Shlomo Birmingham NP dictating a consult on this patient on behalf of Dr. Eubanks. The patient was interviewed and examined. HPI: [Patient is a pleasant 81-year-old male who initially presented to the hospital with complaints of generalized weakness, shortness of breath, weight gain and lower extremity edema. Patient is a poor historian, and most of this consult was taken from the H&P. Some reported the patient gained around 40 pounds over the last few weeks and has continued to complain of shortness of breath and having trouble sleeping. Patient usually sleeps in a recliner. This prompted the patient's son to bring him to the emergency department. He was evaluated in the ED, and found to have pulmonary edema secondary to seek HF on chest x-ray. Lab evaluation showed a BNP at 4870, troponin 0.0-2. EKG showed sinus rhythm with first-degree AV block with bifascicular block with an LVH of 67 bpm. Patient was subsequently admitted for the CHF exacerbation. Patient has a past medical history that includes CAD, cancer, diabetes, GERD, hyperlipidemia, hypertension, memory impairment, osteoarthritis, pneumonia, and BPH, sleep apnea, IL, diverticulosis, IBS, and a history of MRSA. He has a past surgical history includes appendectomy, back surgery, cholecystectomy, CABG, heart catheterization with stent, hernia repair, joint replacement, lysis of adhesions, and fatty tumor removal. Patient reports she is a never smoker, denies current alcohol or illicit substance use.] ROS: [No fever, chills, or rigors] [no cough, phlegm, or expectoration] [no nausea, vomiting, or diarrhea] [no hematuria, dysuria] [no musculoskelatal complaints] [no strokes or seizures] [no skin lesions] Patient reports he does not feel good EXAMINATION: GENERAL: Well-appearing, well-nourished and in no acute distress. NECK: Supple without JVD or thyromegaly. LUNGS: Breath sounds clear to auscultation bilaterally. Respiration equal and unlabored. No wheezes, rales or rhonchi. HEART: Regular rate and rhythm without murmurs, rubs or gallops. S1 and S2 heard. EXTREMITIES: Normal range of motion, 1+ pitting edema in the bilateral lower extremities. No clubbing or cyanosis. Peripheral pulses intact and strong. REVIEW OF LABS, ECG & MEDICAL DATA: LABS: White count 7.6, hemoglobin 11.7, platelets 251, d-dimer 2.26, sodium 137, potassium 4.8, B1 25, creatinine 0.97, magnesium 1.7, troponin 3 less than 0.029, BNP 4870 EKG: Normal sinus rhythm with right bundle branch block IMAGING: Chest x-ray dated 03/13/2021 shows congestive heart failure changes with cardiomegaly and mild pulmonary vascular congestion. Correlate with BNP. Superimposed atypical pneumonia not entirely excluded. VITALS: Temp 97.8, pulse 66, respirations 18, blood pressure 169/79, O2 saturation 98% on 2 L of oxygen via nasal cannula IMPRESSION/PLAN: [1. Congestive heart failure exacerbation-continue IV Lasix. Echocardiogram today. Continue to follow d-dimer. 2. Hypertension-continue antihypertensive medication as ordered. Further recommendations aced on the patient's clinical course.] Thank you for the consult and allowing us to participate in the care of this patient. The patient has been seen and evaluated. Plan of care has been reviewed and agreed upon by Dr. Eubanks. Past Medical History Past Medical History: Coronary Artery Disease (CAD), Cancer, Diabetes Mellitus, GERD/Reflux, Hyperlipidemia, Hypertension, Memory Impairment, Osteoarthritis (OA), Pneumonia, Prostate Disorder, Sleep Apnea/CPAP/BIPAP Additional Past Medical History / Comment(s): IL 08/23/[address]/cardiogenic shock/balloon pump/CHB with temporary pacer/thrombocytopenia. 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, IDDM type II, sepsis History of Any Multi-Drug Resistant Organisms: MRSA Date of last positivie culture/infection: 08/30/18 MDRO Source:: Sputum Past Surgical History: Appendectomy, Back Surgery, Cholecystectomy, Coronary Bypass/CABG, Heart Catheterization, Heart Catheterization With Stent, Hernia Repair, Joint Replacement, Orthopedic Surgery Additional Past Surgical History / Comment(s): 08/23/18 PCI with stent to RCA, cardiac caths, 2008 CABG 3 vessels, inguinal and incisional hernia repairs, triple incisional hernia repair/lysis of adhesions, multiple surgeries for abdominal adhessions, fatty tumors removed posterior neck, ORIF R ankle/R tib fib, total L knee arthroplasty, L rotator cuff repair, bilateral carpal tunnel releases, colonoscopies/bening polyp, EGDs. Past Anesthesia/Blood Transfusion Reactions: No Reported Reaction Date of Last Stent Placement:: 08/23/18 Past Psychological History: Anxiety Additional Psychological History / Comment(s): Pt resides with his spouse. He uses a cane to ambulate. He has not been driving recently d/t health reasons. His spouse and family drive him to [employer]. Smoking Status: Never smoker Past Alcohol Use History: None Reported Past Drug Use History: None Reported - Past Family History Father History Unknown: Yes Family Medical History: Cancer Additional Family Medical History / Comment(s): PROSTATE CANCER Son(s) Family Medical History: Cancer Additional Family Medical History / Comment(s): TESTICULAR CANCER Mother Family Medical History: Coronary Artery Disease (CAD), Hypertension Sister(s) Family Medical History: Cancer Medications and Allergies Home Medications Medication Instructions Recorded Confirmed Type Tamsulosin [Flomax] 0.4 mg PO HS@209907/14/17 03/13/21 History Pravastatin Sodium [Pravachol] 40 mg PO HS@209908/03/17 03/13/21 History Multivitamins, Thera [Multivitamin 1 tab PO DAILY@0900 07/04/18 03/13/21 History (formulary)] traMADol HCL [Ultram] 50 mg PO Q6H PRN #12 tablet 09/13/18 03/13/21 Rx Acetaminophen Tab [Tylenol] 650 mg PO Q6H PRN 09/14/18 03/13/21 History Hydrocodone/Acetaminophen [[place] 1 tab PO BID@0900,209910/27/18 03/13/21 History 7.5-325] Nitroglycerin Sl Tabs [Nitrostat] 0.4 mg SUBLINGUAL Q5M PRN #30 tab 11/02/18 03/13/21 Rx Losartan [Cozaar] 25 mg PO HS@2100 11/17/18 03/13/21 History Insulin Glargine [Lantus Vial] 60 unit SQ DAILY@0900 12/14/18 03/13/21 History Amiodarone [Cordarone] 200 mg PO DAILY@0900 02/08/19 03/13/21 History Gabapentin 600 mg PO TID@0900,1600,2100 02/08/19 03/13/21 History Isosorbide Mononitrate ER [Imdur] 15 mg PO BID@0900,2100 02/08/19 03/13/21 History Aspirin 81 mg PO DAILY@0900 03/13/21 03/13/21 History Cholecalciferol [Vitamin D3 (25 25 mcg PO HS@209903/13/21 03/13/21 History Mcg = 1000 Iu)] Clopidogrel [Plavix] 75 mg PO DAILY@0900 03/13/21 03/13/21 History Docusate [Colace] 100 mg PO DAILY@0900 03/13/21 03/13/21 History Hyoscyamine Sulfate [Hyoscyamine 0.125 mg SL TID PRN 03/13/21 03/13/21 History Sulfate SL] INSULIN ASPART (NovoLOG) [NovoLOG See Protocol SQ ACHS 03/13/21 03/13/21 History (formulary)] Levothyroxine Sodium [Synthroid] 25 mcg PO AC-BRKFST 03/13/21 03/13/21 History Meclizine [Antivert] 25 mg PO TID PRN 03/13/21 03/13/21 History Metoprolol Tartrate [Lopressor] 25 mg PO BID@0900,2100 03/13/21 03/13/21 History Omeprazole 40 mg PO DAILY@0900 03/13/21 03/13/21 History Zinc 50 mg PO DAILY@0900 03/13/21 03/13/21 History Allergies Allergy/AdvReac Type Severity Reaction Status Date / Time Iodinated Contrast Media Allergy Rash/Hives Verified 03/13/21 18:39 iodine Allergy Rash/Hives Verified 03/13/21 18:39 Penicillins Allergy Swelling Verified 03/13/21 18:39 celecoxib [From Celebrex] AdvReac headache Verified 03/13/21 18:44 duloxetine [From Cymbalta] AdvReac PRICKLY Verified 03/13/21 18:39 FEELING IN HEAD povidone-iodine AdvReac Itchy,red Verified 03/13/21 18:39 [From Betadine] skin soap [From Betadine] AdvReac Itchy,red Verified 03/13/21 18:39 skin Surgical Scrub AdvReac Unknown Itching, Uncoded 02/08/19 10:01 Red skin Physical Exam Vitals: Vital Signs Temp Pulse Pulse Pulse Resp BP BP 03/14/21 09:09 97.8 F 03/14/21 09:00 66 18 169/79 03/14/21 03:20 18 03/14/21 03:19 97.8 F 57 L 17 152/72 03/14/21 01:42 61 17 03/14/21 00:00 98.2 F 61 17 154/74 03/13/21 20:53 97.9 F 58 L 18 158/80 03/13/21 20:00 58 L 18 03/13/21 19:28 76 03/13/21 18:20 63 22 165/75 03/13/21 15:32 97.8 F 63 18 Pulse Ox 03/14/21 09:09 03/14/21 09:00 98 03/14/21 03:20 98 03/14/21 03:19 88 L 03/14/21 01:42 03/14/21 00:00 94 L 03/13/21 20:53 91 L 03/13/21 20:00 03/13/21 19:28 03/13/21 18:20 92 L 03/13/21 15:32 95 Intake and Output 03/13/21 03/14/21 03/14/21 22:59 06:59 14:59 Intake Total 100 0 Output Total 1300 1175 Balance -1200 -1175 Intake: Oral 100 0 Output: Urine 1300 1175 Other: Voiding Method Urinal Urinal Incontinent Weight 106.141 kg 111.5 kg Results 03/13/21 16:38 03/13/21 16:38 Cardiac Enzymes 03/13/21 03/13/21 03/13/21 Range/Units 16:38 16:40 19:54 AST 73 H (17-59) U/L Troponin I 0.022 0.029 (0.000-0.034) ng/mL 03/13/21 Range/Units 22:18 AST (17-59) U/L Troponin I 0.029 (0.000-0.034) ng/mL Coagulation 03/13/21 Range/Units 16:40 PT 11.3 (9.0-12.0) sec APTT 22.0 (22.0-30.0) sec CBC 03/13/21 Range/Units 16:38 WBC 7.6 (3.8-10.6) k/uL RBC 4.37 (4.30-5.90) m/uL Hgb 11.7 L (13.0-17.5) gm/dL Hct 38.6 L (39.0-53.0) % Plt Count 251 (150-450) k/uL Comprehensive Metabolic Panel 03/13/21 Range/Units 16:38 Sodium 137 (137-145) mmol/L Potassium 4.8 (3.5-5.1) mmol/L Chloride 102 (98-107) mmol/L Carbon Dioxide 25 (22-30) mmol/L BUN 25 H (9-20) mg/dL Creatinine 0.97 (0.66-1.25) mg/dL Glucose 121 H (74-99) mg/dL Calcium 9.1 (8.4-10.2) mg/dL AST 73 H (17-59) U/L ALT 40 (4-49) U/L Alkaline Phosphatase 89 (38-126) U/L Total Protein 6.6 (6.3-8.2) g/dL Albumin 3.9 (3.5-5.0) g/dL Current Medications Generic Name Dose Route Start Last Admin Trade Name Freq PRN Reason Stop Dose Admin Amiodarone HCl 200 mg 03/14/21 09:00 03/14/21 09:10 Amiodarone 200 Mg Tab PO 200 mg DAILY@0900 AALIYAH Administration Aspirin 325 mg 03/14/21 09:00 03/14/21 09:10 Aspirin 325 Mg Tab PO 325 mg DAILY AALIYAH Administration Aspirin 81 mg 03/14/21 09:00 03/14/21 09:10 Aspirin 81 Mg PO 81 mg DAILY@0900 AALIYAH Administration Clopidogrel Bisulfate 75 mg 03/14/21 09:00 03/14/21 09:10 Clopidogrel 75 Mg Tab PO 75 mg DAILY@0900 AALIYAH Administration Furosemide 40 mg 03/13/21 18:15 03/14/21 06:22 Furosemide 10 Mg/Ml 4 Ml Vial IV 40 mg Q12H AALIYAH Administration Gabapentin 600 mg 03/14/21 09:00 03/14/21 09:10 Gabapentin 300 Mg Cap PO 600 mg TID [facility] Administration Heparin Sodium (Porcine) 5,000 unit 03/14/21 08:00 03/14/21 09:11 Heparin Sodium,Porcine/Pf 5,000 Unit/0.5 Ml Syringe SQ 5,000 unit Q8HR AALIYAH Administration Insulin Aspart 0 unit 03/14/21 07:30 03/14/21 06:19 Insulin Aspart (Novolog) 100 Unit/Ml Vial SQ Not Given ACHS [facility] Protocol Isosorbide Mononitrate 15 mg 03/14/21 09:00 03/14/21 09:10 Isosorbide Mononitrate Er 15 Mg Tab PO 15 mg BID@0900,2100 [facility] Administration Levothyroxine Sodium 25 mcg 03/14/21 06:30 03/14/21 06:22 Levothyroxine 25 Mcg Tab PO 25 mcg DAILY@0630 [facility] Administration Losartan Potassium 25 mg 03/14/21 21:00 Losartan 25 Mg Tab PO HS@2100 [facility] Metoprolol Tartrate 25 mg 03/14/21 09:00 03/14/21 09:10 Metoprolol Tartrate 25 Mg Tab PO 25 mg BID@0900,2100 [facility] Administration Multivitamins 1 each 03/14/21 09:00 03/14/21 09:10 Multivitamins, Thera 1 Each Tab PO 1 each DAILY@0900 [facility] Administration Pravastatin Sodium 40 mg 03/14/21 21:00 Pravastatin Sodium 40 Mg Tab PO HS@2100 [facility] Sodium Chloride 10 ml 03/13/21 21:00 03/14/21 09:11 Sodium Chloride 0.9% Flush 10 Ml Syringe IV 10 ml BID [facility] Administration Tamsulosin HCl 0.4 mg 03/14/21 21:00 Tamsulosin 0.4 Mg Cap.Er.24h PO HS@2100 [facility] Tramadol HCl 50 mg 03/14/21 02:36 03/14/21 06:28 Tramadol 50 Mg Tab PO 50 mg Q6H PRN Administration Pain Intake and Output 03/13/21 03/14/21 03/14/21 22:59 06:59 14:59 Intake Total 100 0 Output Total 1300 1175 Balance -1200 -1175 Intake: Oral 100 0 Output: Urine 1300 1175 Other: Voiding Method Urinal Urinal Incontinent Weight 106.141 kg 111.5 kg 03/13/21 16:38 03/13/21 16:38
--- NOTE | 2021-03-14 12:24 | P.PN ---
Subjective Progress Note Date: 03/14/21 Pt sitting in chair eating lunch with no complaints. Denies dyspnea at this time. He is unsure why he is hospitalized. Echo not completed yet. Ongoing diuresis with improving oxygenation, I/O -2.5L Objective - Vital Signs Vital signs: Vital Signs Temp 97.8 F 03/14/21 09:09 Pulse 66 03/14/21 09:00 Resp 18 03/14/21 09:00 BP 169/79 03/14/21 09:00 Pulse Ox 98 03/14/21 09:00 Intake & Output 03/13/21 03/14/21 03/14/21 18:59 06:59 18:59 Intake Total 100 0 Output Total 1300 2525 Balance -1200 -2525 Weight 106.141 kg 111.5 kg Intake: Oral 100 0 Output: Urine 1300 2525 Other: Voiding Method Urinal Incontinent - Exam Gen: awake, alert HEENT: normocephalic, atraumatic, good hearing acuity, moist mucous membranes Resp: good air exchange, breathing comfortably with no accessory muscle use CVS: good distal perfusion x 4, GI: soft, NTTP, ND : no SPT, no CVAT, vines catheter is present MSK: Bilateral pitting edema, no clubbing Neuro: non-focal, moving all extremities Psych: cooperative, euthymic mood - Labs CBC & Chem 7: 03/13/21 16:38 03/13/21 16:38 Labs: Abnormal Lab Results - Last 24 Hours (Table) 03/13/21 03/13/21 03/13/21 Range/Units 16:38 16:38 22:26 Hgb 11.7 L (13.0-17.5) gm/dL Hct 38.6 L (39.0-53.0) % MCHC 30.4 L (31.0-37.0) g/dL RDW 15.8 H (11.5-15.5) % D-Dimer (<0.60) mg/L FEU BUN 25 H (9-20) mg/dL Glucose 121 H (74-99) mg/dL POC Glucose (mg/dL) 54 L (75-99) mg/dL AST 73 H (17-59) U/L 03/13/21 03/13/21 03/14/21 Range/Units 22:46 22:58 02:40 Hgb (13.0-17.5) gm/dL Hct (39.0-53.0) % MCHC (31.0-37.0) g/dL RDW (11.5-15.5) % D-Dimer (<0.60) mg/L FEU BUN (9-20) mg/dL Glucose (74-99) mg/dL POC Glucose (mg/dL) 64 L 139 H 72 L (75-99) mg/dL AST (17-59) U/L 03/14/21 03/14/21 Range/Units 09:05 10:40 Hgb (13.0-17.5) gm/dL Hct (39.0-53.0) % MCHC (31.0-37.0) g/dL RDW (11.5-15.5) % D-Dimer 2.26 H (<0.60) mg/L FEU BUN (9-20) mg/dL Glucose (74-99) mg/dL POC Glucose (mg/dL) 107 H (75-99) mg/dL AST (17-59) U/L Assessment and Plan Assessment: Acute systolic CHF exacerbation -Continue with Lasix IV -Cardiology consult -Intake and output, daily weights, fluid restriction -Cardiac monitoring -Monitor electrodes daily Type II DM Hypertension Hyperlipidemia -Continue with home meds -Insulin sliding scale blood glucose monitoring -Check A1c DVT prophylaxis -Heparin subcu CODE STATUS: Full Code Anticipated discharge date: 2-[address]: Home
--- NOTE | 2021-03-14 13:00 | ECHOF ---
Referral Reason:CHF MEASUREMENTS -------- HEIGHT: 170.2 cm WEIGHT: 111.1 kg BP: 152/72 IVSd: 1.4 cm (0.6 - 1.1) LVIDd: 5.4 cm (3.9 - 5.3) LVPWd: 1.4 cm (0.6 - 1.1) EDV(Teich): 142 ml IVSs: 1.5 cm LVIDs: 4.9 cm LVPWs: 1.6 cm %IVS Thck: 12 % ESV(Teich): 114 ml EF(Teich): 19 % %FS: 9 % SV(Teich): 27 ml LVOT Diam: 2.3 cm LA Diam: 4.5 cm (2.7 - 3.8) RVIDd: 3.3 cm (< 3.3) LALs A4C: 6.0 cm LAAs A4C: 21.4 cm LAESV A-L A4C: 65 ml LAESV MOD A4C: 53 ml LALs A2C: 5.0 cm LAAs A2C: 18.5 cm LAESV A-L A2C: 58 ml LAESV MOD A2C: 52 ml LAESV(A-L): 67 ml LAESV Index (A-L): 30.44 ml/m Ao Diam: 3.6 cm (2.0 - 3.7) AV Cusp: 2.1 cm (1.5 - 2.6) EPSS: 2.2 cm MV E Crispin: 0.88 m/s MV DecT: 158 ms MV Dec Bartholomew: 5.6 m/s MV A Crispin: 0.69 m/s MV E/A Ratio: 1.27 MV PHT: 46 ms AV Vmax: 1.24 m/s AV maxP.22 mmHg AR Vmax: 2.60 m/s AR maxP.06 mmHg AR PHT: 1163 ms AR Dec Time: 4012 ms AR Dec Bartholomew: 0.6 m/s TR Vmax: 2.71 m/s TR maxP.47 mmHg RAP: 5.00 mmHg RVSP: 34.47 mmHg MV EF SLOPE: 18.13 mm/s (70 - 150) MV EXCURSION: 17.70 mm (> 18.000) FINDINGS -------- Sinus rhythm. This was a technically adequate study. The left ventricular size is normal. There is moderate concentric left ventricular hypertrophy. O verall left ventricular systolic function is mild-moderately impaired with, an EF between 40 - 45 %. Basal inferior LV wall motion is hypokinetic. Basal inferoseptal LV wall motion is hypokinetic. The right ventricle is mildly enlarged. LA is midly dilated 29-33ml/m2. The right atrium is normal in size. There is mild aortic valve sclerosis. There is mild aortic regurgitation. Mild mitral regurgitation is present. Mild tricuspid regurgitation present. There is mild pulmonary hypertension. The right ventricular systolic pressure, as measured by Doppler, is 34.47mmHg. Trace/mild (physiologic) pulmonic regurgitation. The aortic root size is normal. IVC Not well visulized. There is no pericardial effusion. CONCLUSIONS -------- 1. The left ventricular size is normal. 2. There is moderate concentric left ventricular hypertrophy. 3. Overall left ventricular systolic function is mild-moderately impaired with, an EF between 40 - 45 %. 4. Basal inferior LV wall motion is hypokinetic. 5. Basal inferoseptal LV wall motion is hypokinetic. 6. The right ventricle is mildly enlarged. 7. LA is midly dilated 29-33ml/m2. 8. There is mild aortic valve sclerosis. 9. There is mild aortic regurgitation. 10. Mild mitral regurgitation is present. 11. Mild tricuspid regurgitation present. 12. There is mild pulmonary hypertension. 13. The right ventricular systolic pressure, as measured by Doppler, is 34.47mmHg. 14. Trace/mild (physiologic) pulmonic regurgitation. 15. There is no pericardial effusion. GUN EXAMINER: Jennifer Guzman RDCS
[2021-03-14 14:09] LABS: Glucose,Whole Blood 149 mg/dL (75-99)
[2021-03-14 14:09] LABS: Glucose,Whole Blood 152 mg/dL (75-99)
[2021-03-14] MEDS: carvediloL 3.125 MG TAB PO SCH (16:40)
[2021-03-14 18:18] LABS: Glucose,Whole Blood 290 mg/dL (75-99)
--- NOTE | 2021-03-14 18:43 | XR ---
EXAMINATION TYPE: XR abdomen 2V DATE OF EXAM: 03/14/2021 6:33 PM INDICATION: Patient age:Male; 81 years old; Reason for study: abdomen pain (Lower); . COMPARISON: Radiographs 08/31/2018 TECHNIQUE: Two views of the abdomen were obtained. FINDINGS: The bowel gas pattern is nonspecific without dilated loops of small or large bowel. There i s no evidence for organomegaly or pneumoperitoneum. The osseous structures are intact. Scattered mu ltilevel degenerative disc disease changes throughout the spine.. Fecal material and gas are demonstr ated throughout the colon and rectum. Hernia repair anchors are seen scattered throughout the abdome n. Sternotomy wires are present. Pelvic phleboliths are noted in the abdomen. IMPRESSION: Nonspecific bowel gas pattern without radiographic evidence for acute process.
[2021-03-14] MEDS ORDERED: LOSARTAN 25 MG TAB PO SCH (21:00)
[2021-03-14] MEDS: TAMSULOSIN 0.4 MG CAP.ER.24H PO SCH (21:27)
[2021-03-14] MEDS: PRAVASTATIN SODIUM 40 MG TAB PO SCH (21:27)
[2021-03-14 22:53] LABS: Glucose,Whole Blood 112 mg/dL (75-99)
[2021-03-15] MEDS: traMADol 50 MG TAB PO PRN ×3 (00:45→22:10)
[2021-03-15 02:14] LABS: Glucose,Whole Blood 151 mg/dL (75-99)
[2021-03-15 06:00] LABS: Glucose,Whole Blood 155 mg/dL (75-99)
[2021-03-15] MEDS: LEVOTHYROXINE 25 MCG TAB PO SCH (06:15)
[2021-03-15] MEDS: carvediloL 3.125 MG TAB PO SCH ×2 (06:16→16:48)
[2021-03-15] MEDS: INSULIN ASPART (NovoLOG) 100 UNIT/ML VIAL SQ SCH ×4 (06:16→22:08)
[2021-03-15] MEDS: FUROSEMIDE 10 MG/ML 4 ML VIAL IV SCH ×2 (06:16→17:47)
[2021-03-15] MEDS: SACUBITRIL/VALSARTAN 24 MG-26 MG TABLET PO SCH ×2 (08:15→22:09)
[2021-03-15] MEDS: MULTIVITAMINS, THERA 1 EACH TAB PO SCH (08:15)
[2021-03-15] MEDS: AMIODARONE 100 MG TAB PO SCH (08:15)
[2021-03-15] MEDS: ISOSORBIDE MONONITRATE ER 15 MG TAB PO SCH ×2 (08:15→22:09)
[2021-03-15] MEDS: CLOPIDOGREL 75 MG TAB PO SCH (08:15)
[2021-03-15] MEDS: ASPIRIN 81 MG PO SCH (08:15)
[2021-03-15] MEDS: GABAPENTIN 300 MG CAP PO SCH ×3 (08:16→22:09)
[2021-03-15] MEDS: HEPARIN SODIUM,PORCINE/PF 5,000 UNIT/0.5 ML SYRINGE SQ SCH ×2 (08:16→16:43)
[2021-03-15 09:17] LABS: Basophils % (A) 1 %; Eosinophils # (A) 0.2 k/uL (0-0.7); Eosinophils % (A) 2 %; HGB 11.8 gm/dL (13.0-17.5); Hypochromasia Marked; Lymphocytes # (A) 0.9 k/uL (1.0-4.8); Lymphocytes % (A) 12 %; MCH 26.9 pg (25.0-35.0); MCHC 30.2 g/dL (31.0-37.0); MCV 89.1 fL (80.0-100.0); Mean Platelet Volume 8.1; Monocytes # (A) 0.5 k/uL (0-1.0); Monocytes % (A) 7 %; Neutrophils # (A) 5.5 k/uL (1.3-7.7); Neutrophils % (A) 74 %; Platelet Count 259 k/uL (150-450); RBC 4.37 m/uL (4.30-5.90); RDW 15.2 % (11.5-15.5); WBC 7.4 k/uL (3.8-10.6)
[2021-03-15 09:23] LABS: Calcium 8.6 mg/dL (8.4-10.2); Potassium 3.9 mmol/L (3.5-5.1)
--- NOTE | 2021-03-15 12:01 | P.PN ---
Subjective Progress Note Date: 03/15/21 Pt is doing well today, resting comfortably on room air, and saturating well. No complaints of abd pain, cp, palps, dyspnea. Abd XR from yesterday indicated for abd pain, and pain has resolved, and findings of XR were non-specific. Objective - Vital Signs Vital signs: Vital Signs Temp 97.9 F 03/15/21 08:00 Pulse 60 03/15/21 08:00 Resp 15 03/15/21 08:00 BP 116/56 03/15/21 08:00 Pulse Ox 92 L 03/15/21 08:00 Intake & Output 03/14/21 03/15/21 03/15/21 18:59 06:59 18:59 Intake Total 840 110 60 Output Total 2800 1900 450 Balance -1959 -0 -390 Weight 111.5 kg 108.5 kg 108.1 kg Intake: IV 10 10 Invasive Line 3 10 10 Oral 840 100 50 Output: Urine 2800 1900 450 Other: Voiding Method Indwelling Catheter Indwelling Catheter Indwelling Catheter - Exam Gen: awake, alert HEENT: normocephalic, atraumatic, good hearing acuity, moist mucous membranes Resp: good air exchange, breathing comfortably with no accessory muscle use CVS: good distal perfusion x 4, GI: soft, NTTP, ND : no SPT, no CVAT, vines catheter is present MSK: Bilateral pitting edema, no clubbing Neuro: non-focal, moving all extremities Psych: cooperative, euthymic mood - Labs CBC & Chem 7: 03/15/21 08:35 03/15/21 08:35 Labs: Abnormal Lab Results - Last 24 Hours (Table) 03/14/21 03/14/21 03/14/21 Range/Units 14:04 14:05 18:15 Hgb (13.0-17.5) gm/dL MCHC (31.0-37.0) g/dL Lymphocytes # (1.0-4.8) k/uL D-Dimer (<0.60) mg/L FEU Sodium (137-145) mmol/L Chloride (98-107) mmol/L Carbon Dioxide (22-30) mmol/L BUN (9-20) mg/dL Glucose (74-99) mg/dL POC Glucose (mg/dL) 152 H 149 H 290 H (75-99) mg/dL 03/14/21 03/15/21 03/15/21 Range/Units 22:52 01:49 05:31 Hgb (13.0-17.5) gm/dL MCHC (31.0-37.0) g/dL Lymphocytes # (1.0-4.8) k/uL D-Dimer (<0.60) mg/L FEU Sodium (137-145) mmol/L Chloride (98-107) mmol/L Carbon Dioxide (22-30) mmol/L BUN (9-20) mg/dL Glucose (74-99) mg/dL POC Glucose (mg/dL) 112 H 151 H 155 H (75-99) mg/dL 03/15/21 03/15/21 03/15/21 Range/Units 08:35 08:35 08:35 Hgb 11.8 L (13.0-17.5) gm/dL MCHC 30.2 L (31.0-37.0) g/dL Lymphocytes # 0.9 L (1.0-4.8) k/uL D-Dimer 2.93 H (<0.60) mg/L FEU Sodium 136 L (137-145) mmol/L Chloride 95 L (98-107) mmol/L Carbon Dioxide 37 H (22-30) mmol/L BUN 21 H (9-20) mg/dL Glucose 225 H (74-99) mg/dL POC Glucose (mg/dL) (75-99) mg/dL Assessment and Plan Assessment: Acute systolic CHF exacerbation -Continue with Lasix IV, consider switching to PO today -Echo with WMA and EF of 45%, but improved EF from 2019 -Cardiology consult -Intake and output, daily weights, fluid restriction -Cardiac monitoring -Monitor electrodes daily Type II DM Hypertension Hyperlipidemia -Continue with home meds -Insulin sliding scale blood glucose monitoring -Check A1c DVT prophylaxis -Heparin subcu CODE STATUS: Full Code Anticipated discharge date: 2-[address]: Home
[2021-03-15 12:22] LABS: Glucose,Whole Blood 209 mg/dL (75-99)
--- NOTE | 2021-03-15 13:02 | P.PN ---
Subjective Progress Note Date: 03/15/21 The patient was interviewed and examined sitting comfortably in the recliner chair. He states his breathing is gradually getting better. He denies any chest pain or chest pressure. No heart racing or fluttering. He is unsure of his edema is improving. GENERAL: Well-appearing, well-nourished and in no acute distress. NECK: Supple without JVD or thyromegaly. LUNGS: Breath sounds are diminished bilaterally. Respiration equal and unlabored. No wheezes, rales or rhonchi. HEART: Regular rate and rhythm without murmurs, rubs or gallops. S1 and S2 heard. EXTREMITIES: Normal range of motion +1-2 bilateral pitting edema. No clubbing or cyanosis. Peripheral pulses intact and strong. VITALS: Blood pressure 116/56, pulse 60, respiratory rate 15, temp 97.9F, SpO2 92% on 2 L nasal cannula TELEMETRY: Sinus rhythm overnight LABS: CBC 7.4, hemoglobin 11.8, hematocrit 39.0, platelet 259, d-dimer 2.93, sodium 136, potassium 3.9, BUN 21, creatinine 1.01 IMPRESSION: Congestive heart failure, continue IV Lasix today Elevated d-dimer, VQ scan to be done as patient has iodine allergy hypertension Cardiac arrhythmia, unsure if ventricular fibrillation versus atrial fibrillation, on amiodarone PLAN: Continue IV Lasix today Consider switching to by mouth Lasix tomorrow Stop aspirin Start Eliquis till results of VQ scan are reviewed and confirmation of arrhythmia by primary rough carpenter Dr. Aponte Further recommendations will be based upon clinical course The patient has been seen and evaluated by nurse practitioner and coordinating physician. Plan of care has been reviewed and agreed upon by Dr Eubanks. Objective - Vital Signs Vital signs: Vital Signs Temp 98.2 F 03/15/21 12:29 Pulse 75 03/15/21 12:29 Resp 18 03/15/21 12:29 BP 142/64 03/15/21 12:29 Pulse Ox 92 L 03/15/21 12:29 Intake & Output 03/14/21 03/15/21 03/15/21 18:59 06:59 18:59 Intake Total 840 110 60 Output Total 2800 1900 450 Balance -1960 -1790 -390 Weight 111.5 kg 108.5 kg 108.1 kg Intake: IV 10 10 Invasive Line 3 10 10 Oral 840 100 50 Output: Urine 2800 1900 450 Other: Voiding Method Indwelling Catheter Indwelling Catheter Indwelling Catheter - Labs CBC & Chem 7: 03/15/21 08:35 03/15/21 08:35 Labs: Abnormal Lab Results - Last 24 Hours (Table) 03/14/21 03/14/21 03/14/21 Range/Units 14:04 14:05 18:15 Hgb (13.0-17.5) gm/dL MCHC (31.0-37.0) g/dL Lymphocytes # (1.0-4.8) k/uL D-Dimer (<0.60) mg/L FEU Sodium (137-145) mmol/L Chloride (98-107) mmol/L Carbon Dioxide (22-30) mmol/L BUN (9-20) mg/dL Glucose (74-99) mg/dL POC Glucose (mg/dL) 152 H 149 H 290 H (75-99) mg/dL 03/14/21 03/15/21 03/15/21 Range/Units 22:52 01:49 05:31 Hgb (13.0-17.5) gm/dL MCHC (31.0-37.0) g/dL Lymphocytes # (1.0-4.8) k/uL D-Dimer (<0.60) mg/L FEU Sodium (137-145) mmol/L Chloride (98-107) mmol/L Carbon Dioxide (22-30) mmol/L BUN (9-20) mg/dL Glucose (74-99) mg/dL POC Glucose (mg/dL) 112 H 151 H 155 H (75-99) mg/dL 03/15/21 03/15/21 03/15/21 Range/Units 08:35 08:35 08:35 Hgb 11.8 L (13.0-17.5) gm/dL MCHC 30.2 L (31.0-37.0) g/dL Lymphocytes # 0.9 L (1.0-4.8) k/uL D-Dimer 2.93 H (<0.60) mg/L FEU Sodium 136 L (137-145) mmol/L Chloride 95 L (98-107) mmol/L Carbon Dioxide 37 H (22-30) mmol/L BUN 21 H (9-20) mg/dL Glucose 225 H (74-99) mg/dL POC Glucose (mg/dL) (75-99) mg/dL 03/15/21 Range/Units 12:07 Hgb (13.0-17.5) gm/dL MCHC (31.0-37.0) g/dL Lymphocytes # (1.0-4.8) k/uL D-Dimer (<0.60) mg/L FEU Sodium (137-145) mmol/L Chloride (98-107) mmol/L Carbon Dioxide (22-30) mmol/L BUN (9-20) mg/dL Glucose (74-99) mg/dL POC Glucose (mg/dL) 209 H (75-99) mg/dL
[2021-03-15 17:03] LABS: Glucose,Whole Blood 213 mg/dL (75-99)
[2021-03-15 20:37] LABS: Glucose,Whole Blood 216 mg/dL (75-99)
[2021-03-15] MEDS: APIXABAN 5 MG TAB PO SCH (22:08)
[2021-03-15] MEDS: TAMSULOSIN 0.4 MG CAP.ER.24H PO SCH (22:09)
[2021-03-15] MEDS: PRAVASTATIN SODIUM 40 MG TAB PO SCH (22:09)
--- NOTE | 2021-03-15 22:12 | NM ---
EXAMINATION TYPE: NM pul vent and perfuse DATE OF EXAM: 03/15/2021 COMPARISON: Chest radiograph 03/13/2021 HISTORY: Elevated d-dimer. TECHNIQUE: Utilizing inhalation of 40 mCi Tc 99m DTPA aerosol and intravenous injection of 5.2 mCi o f Tc 99m MAA, ventilation and perfusion images are acquired post injection in multiple projections. FINDINGS: Mildly heterogeneous radiotracer distribution is noted in the lungs. There is a triple matched defect in the right lower lobe with a small right effusion seen on the radiograph from 03/13/2021. IMPRESSION: Intermediate probability for pulmonary embolism.
[2021-03-16] MEDS: FUROSEMIDE 10 MG/ML 4 ML VIAL IV SCH ×2 (06:50→17:38)
[2021-03-16] MEDS: traMADol 50 MG TAB PO PRN ×3 (06:50→21:11)
[2021-03-16] MEDS: INSULIN ASPART (NovoLOG) 100 UNIT/ML VIAL SQ SCH ×4 (06:50→21:04)
[2021-03-16] MEDS: carvediloL 3.125 MG TAB PO SCH ×2 (06:51→17:38)
[2021-03-16] MEDS: LEVOTHYROXINE 25 MCG TAB PO SCH (06:51)
[2021-03-16 07:03] LABS: Glucose,Whole Blood 191 mg/dL (75-99)
[2021-03-16] MEDS: GABAPENTIN 300 MG CAP PO SCH ×3 (09:15→21:10)
[2021-03-16] MEDS: APIXABAN 5 MG TAB PO SCH ×2 (09:15→21:06)
[2021-03-16] MEDS: ISOSORBIDE MONONITRATE ER 15 MG TAB PO SCH ×2 (09:16→21:07)
[2021-03-16] MEDS: AMIODARONE 100 MG TAB PO SCH (09:16)
[2021-03-16] MEDS: SACUBITRIL/VALSARTAN 24 MG-26 MG TABLET PO SCH ×2 (09:16→21:07)
[2021-03-16] MEDS: MULTIVITAMINS, THERA 1 EACH TAB PO SCH (09:16)
[2021-03-16] MEDS: CLOPIDOGREL 75 MG TAB PO SCH (09:18)
--- NOTE | 2021-03-16 10:06 | P.PN ---
Subjective Progress Note Date: 03/16/21 Pt continues to report improvement in dyspnea. Apparently was restarted on oxygen at 4L but it is unclear whether he warrants this oxygen, will try to down-titrate today. When I saw him this morning, he was on room air, without dyspnea or increased work of breathing. Objective - Vital Signs Vital signs: Vital Signs Temp 98.7 F 03/16/21 04:00 Pulse 63 03/16/21 04:00 Resp 18 03/16/21 04:00 BP 127/65 03/16/21 04:00 Pulse Ox 95 03/16/21 04:00 Intake & Output 03/15/21 03/16/21 03/16/21 18:59 06:59 18:59 Intake Total 1090 Output Total 1433 2200 1100 Balance -343 -2200 -1100 Weight 108.1 kg Intake: IV 20 Invasive Line 3 20 Oral 1070 Output: Urine 1433 2200 1100 Uretheral (Vines) 1100 Other: Voiding Method Indwelling Catheter Indwelling Catheter - Exam Gen: awake, alert HEENT: normocephalic, atraumatic, good hearing acuity, moist mucous membranes Resp: good air exchange, breathing comfortably with no accessory muscle use CVS: good distal perfusion x 4, GI: soft, NTTP, ND : no SPT, no CVAT, vines catheter is present MSK: Bilateral pitting edema, no clubbing Neuro: non-focal, moving all extremities Psych: cooperative, euthymic mood - Labs CBC & Chem 7: 03/15/21 08:35 03/15/21 08:35 Labs: Abnormal Lab Results - Last 24 Hours (Table) 03/15/21 03/15/21 03/15/21 Range/Units 08:35 12:07 16:43 POC Glucose (mg/dL) 209 H 213 H (75-99) mg/dL Hemoglobin A1c 9.5 H (0.0-6.0) % 03/15/21 03/16/21 Range/Units 19:53 06:42 POC Glucose (mg/dL) 216 H 191 H (75-99) mg/dL Hemoglobin A1c (0.0-6.0) % Assessment and Plan Assessment: Acute systolic CHF exacerbation -Continue with Lasix IV, consider switching to PO today -Echo with WMA and EF of 45%, but improved EF from 2019 -Cardiology consult -Intake and output, daily weights, fluid restriction -Cardiac monitoring -Monitor electrodes daily Type II DM Hypertension Hyperlipidemia -Continue with home meds -Insulin sliding scale blood glucose monitoring -Check A1c DVT prophylaxis -Heparin subcu CODE STATUS: Full Code Anticipated discharge date: 2-[address]: Home
[2021-03-16 10:13] LABS: Calcium 8.6 mg/dL (8.4-10.2); Potassium 4.1 mmol/L (3.5-5.1)
[2021-03-16 12:42] LABS: Glucose,Whole Blood 288 mg/dL (75-99)
--- NOTE | 2021-03-16 14:23 | P.PN ---
Subjective This is an 81-year-old male past medical history significant for coronary artery disease status post bypass grafting and subsequent stent p lacement to the SVG-circumflex 11/01/2018, PCI distal RCA and PDA and PCI SVG-OM in 07/2018, hypertension, dyslipidemia, dementia, diabetes mellitus. He follows with Dr. Aponte. We have in consultation for congestive heart failure. Patient seen at bedside, no acute distress. He states that he does not have any shortness of breath or chest pain. But continues to be hypoxic 84% on room air. He states his breathing is gradually getting better. He denies any chest pain or chest pressure. No heart racing or fluttering. Edema is improving. I/Os with 3.6L urine output over the past 24 hours. Echocardiogram revealed EF of 4045 percent, basal LV wall hypokinetic, mild left ear tissue mild tricuspid regurgitation. VQ scan revealed intermediate probabilty for PE VITALS: reviewed GENERAL: Well-appearing, well-nourished and in no acute distress. NECK: Supple without JVD or thyromegaly. LUNGS: Breath sounds are diminished bilaterally. Respiration equal and unlabored. No wheezes, rales or rhonchi. HEART: Regular rate and rhythm without murmurs, rubs or gallops. S1 and S2 heard. EXTREMITIES: Normal range of motion no edema. No clubbing or cyanosis. Peripheral pulses intact and strong. TELEMETRY: Sinus rhythm LABS: Sodium 135, potassium 4.1, BUN 14, serum creatinine 0.9 IMPRESSION: Congestive diastolic heart failure Elevated d-dimer, VQ scan revealed intermediate probability for pulmonary embolism Hypertension History of non-sustained ventricular tachycardia Coronary artery disease status post bypass grafting and subsequent stent placement to the SVG-circumflex 11/01/2018, PCI distal RCA and PDA and PCI SVG- OM in 07/2018 Hypertension Dyslipidemia Dementia Type 2 diabetes mellitus PLAN Continue IV Lasix for 24 more hours, switch to PO tomorrow Continue Eliquis Continue home cardiac medications Further recommendations will be based upon clinical course The patient has been seen and evaluated by nurse practitioner and coordinating physician. Objective - Vital Signs Vital signs: Vital Signs Temp 96.8 F L 03/16/21 08:00 Pulse 73 03/16/21 08:00 Resp 18 03/16/21 08:00 BP 138/70 03/16/21 08:00 Pulse Ox 93 L 03/16/21 09:00 Intake & Output 03/15/21 03/16/21 03/16/21 18:59 06:59 18:59 Intake Total 1090 Output Total 1433 2200 1100 Balance -343 -2199 -1100 Weight 108.1 kg Intake: IV 20 Invasive Line 3 20 Oral 1070 Output: Urine 1433 2200 1100 Uretheral (Dubose) 1100 Other: Voiding Method Indwelling Catheter Indwelling Catheter Indwelling Catheter - Labs CBC & Chem 7: 03/15/21 08:35 03/16/21 09:43 Labs: Abnormal Lab Results - Last 24 Hours (Table) 03/15/21 03/15/21 03/16/21 Range/Units 16:43 19:53 06:42 Sodium (137-145) mmol/L Chloride (98-107) mmol/L Carbon Dioxide (22-30) mmol/L Glucose (74-99) mg/dL POC Glucose (mg/dL) 213 H 216 H 191 H (75-99) mg/dL 03/16/21 03/16/21 Range/Units 09:43 12:41 Sodium 135 L (137-145) mmol/L Chloride 93 L (98-107) mmol/L Carbon Dioxide 36 H (22-30) mmol/L Glucose 267 H (74-99) mg/dL POC Glucose (mg/dL) 288 H (75-99) mg/dL
[2021-03-16] MEDS ORDERED: MORPHINE SULFATE 4 MG/ML SYRINGE IVP STA (14:29)
[2021-03-16 14:46] VITALS: BMI 37.3
[2021-03-16 16:38] LABS: Glucose,Whole Blood 216 mg/dL (75-99)
[2021-03-16 20:25] LABS: Glucose,Whole Blood 283 mg/dL (75-99)
[2021-03-16] MEDS: TAMSULOSIN 0.4 MG CAP.ER.24H PO SCH (21:10)
[2021-03-16] MEDS: PRAVASTATIN SODIUM 40 MG TAB PO SCH (21:10)
[2021-03-17 06:10] LABS: Glucose,Whole Blood 216 mg/dL (75-99)
[2021-03-17] MEDS: carvediloL 3.125 MG TAB PO SCH ×2 (07:04→17:54)
[2021-03-17] MEDS: FUROSEMIDE 10 MG/ML 4 ML VIAL IV SCH (07:05)
[2021-03-17] MEDS: LEVOTHYROXINE 25 MCG TAB PO SCH (07:05)
[2021-03-17] MEDS: INSULIN ASPART (NovoLOG) 100 UNIT/ML VIAL SQ SCH ×4 (07:05→21:05)
[2021-03-17] MEDS: APIXABAN 5 MG TAB PO SCH ×2 (08:56→21:05)
[2021-03-17] MEDS: traMADol 50 MG TAB PO PRN ×2 (08:56→17:00)
[2021-03-17] MEDS: MULTIVITAMINS, THERA 1 EACH TAB PO SCH (08:56)
[2021-03-17] MEDS: GABAPENTIN 300 MG CAP PO SCH ×3 (08:56→21:05)
[2021-03-17] MEDS: AMIODARONE 100 MG TAB PO SCH (08:57)
[2021-03-17] MEDS: SACUBITRIL/VALSARTAN 24 MG-26 MG TABLET PO SCH ×2 (08:57→21:05)
[2021-03-17] MEDS: ISOSORBIDE MONONITRATE ER 15 MG TAB PO SCH ×2 (08:57→21:05)
[2021-03-17] MEDS: CLOPIDOGREL 75 MG TAB PO SCH (08:57)
[2021-03-17 09:04] LABS: HGB 12.6 gm/dL (13.0-17.5); Hypochromasia Marked; MCH 27.1 pg (25.0-35.0); MCHC 30.6 g/dL (31.0-37.0); MCV 88.3 fL (80.0-100.0); Mean Platelet Volume 7.8; Platelet Count 269 k/uL (150-450); RBC 4.65 m/uL (4.30-5.90); RDW 15.5 % (11.5-15.5); WBC 7.6 k/uL (3.8-10.6)
[2021-03-17 09:07] LABS: Calcium 8.7 mg/dL (8.4-10.2); Magnesium 1.6 mg/dL (1.6-2.3); Potassium 3.8 mmol/L (3.5-5.1)
--- NOTE | 2021-03-17 10:28 | CDI ---
Documentation Clarification Form Date: 03/17/2021 10:16:11 AM From: Jeanine Johnston CCS, CCDS Admit Date: 03/13/2021 06:01:00 PM Patient Name: Tucker Vega Visit Number: [id number] Discharge Date: ATTENTION: The Clinical Documentation Specialists (CDI) and [facility] Coding Staff appreciate your assistance in clarifying documentation. Please respond to the clarification below the line at the bottom and electronically sign. The CDI & [facility] Coding staff will review the response and follow-up if needed. Please note: Queries are made part of the Legal Health Record. If you have any questions, please contact the author of this message via ITS. Dr. Zeyad Mendoza: Conflicting documentation has been found in the medical record regarding the diagnosis of Congestive Heart Failure: Per the 03/16 Attending Progress Note: Acute Systolic CHF Exacerbation Per the 03/16 Cardiology Progress Note: Diastolic Congestive Heart Failure. As the Attending Physician, please provide clarification. History/Risk Factors per the 03/13 H/P: Systolic CHF, DM II, Hypertension, Hyperlipidemia, NE, CAD status post CABG and stents, GERD, Pneumonia. Clinical Indicators: Presented to the ED on 03/13 with weakness & edema to the legs and abdomen, 40 lb wt gain per the patient's son. Admit with Acute Exacerbation of CHF 03/13 VS: T 97.8, P 63, R 18 - 22 (sob), BP 165/75, PO 95 - 92 RA, BMI: 35.9 03/13 LAB: Hgb 11.7, Hct 38.6; BUN 25, Glucose 121, AST 73, BNP 4870. 03/13 CXR: CHF changes with cardiomegaly & mild pulmonary venous congestion. Correlate with BNP. 03/14 ECHO: Left ventricular size is normal. Moderate concentric LVH, Left ventricular systolic function is mild-moderately impaired with EF between 40- 45%, Basal inferior LV wall motion is hypokinetic. Basal inferoseptal LV wall motion is hypokinetic. Right ventricle is mildly enlarged. Mild Aortic valve sclerosis & mild aortic regurgitation, Mild MR, Mil TR, Mild pulmonary hypertension. 03/13 EKG: R 67 Sinus rhythm with 1st degree AV block, RBBB, Left anterior fascicular block, Bifascicular block, Left ventricular hypertrophy with repolarization abnormality. Treatment: CHF Protocol, Dubose cath, Heart Healthy Diet, Cardiology Consult, O2, IV Morphine 2 mg x1, IV Zofran 4 mg x1, IV Lasix 40 mg x1, IV Lasix 40 mg q12H, IV Dextrose. Please clarify which diagnosis is most appropriate: [ ] Acute Systolic CHF [x] Acute on Chronic Systolic CHF [ ] Acute Diastolic CHF [ ] Acute on Chronic Diastolic CHF [ ] Acute Combined Systolic & Diastolic CHF [ ] Acute on Chronic Combined Systolic & Diastolic CHF [ ] Other (please specify) [ ] Unable to determine (Template Last Revised: April 2020) MTDD
--- NOTE | 2021-03-17 11:04 | P.PN ---
Subjective Progress Note Date: 03/17/21 No new complaints today. Yesterday, patient had a bit of confusion and pulled his vines catheter with balloon intact. Ivnes was immediately replaced, and the blood is clearing. Diuresing well. Oxygen need is decreasing down to 2L NC. Pending PT evaluation. Objective - Vital Signs Vital signs: Vital Signs Temp 98.9 F 03/17/21 03:46 Pulse 70 03/17/21 03:46 Resp 18 03/17/21 03:46 BP 127/65 03/17/21 03:46 Pulse Ox 95 03/17/21 03:46 Intake & Output 03/16/21 03/17/21 03/17/21 18:59 06:59 18:59 Intake Total 120 240 Output Total 4350 1200 Balance -4230 -960 Weight 108.1 kg 104 kg Intake: Oral 120 240 Output: Urine 4350 1200 Other: Voiding Method Indwelling Catheter Indwelling Catheter # Bowel Movements 0 - Exam Gen: awake, alert HEENT: normocephalic, atraumatic, good hearing acuity, moist mucous membranes Resp: good air exchange, breathing comfortably with no accessory muscle use CVS: good distal perfusion x 4, GI: soft, NTTP, ND : no SPT, no CVAT, vines catheter is present MSK: Bilateral pitting edema, no clubbing Neuro: non-focal, moving all extremities Psych: cooperative, euthymic mood - Labs CBC & Chem 7: 03/17/21 08:18 03/17/21 08:18 Labs: Abnormal Lab Results - Last 24 Hours (Table) 03/16/21 03/16/21 03/16/21 Range/Units 12:41 16:36 20:24 Hgb (13.0-17.5) gm/dL MCHC (31.0-37.0) g/dL Sodium (137-145) mmol/L Chloride (98-107) mmol/L Carbon Dioxide (22-30) mmol/L Glucose (74-99) mg/dL POC Glucose (mg/dL) 288 H 216 H 283 H (75-99) mg/dL 03/17/21 03/17/21 03/17/21 Range/Units 06:09 08:18 08:18 Hgb 12.6 L (13.0-17.5) gm/dL MCHC 30.6 L (31.0-37.0) g/dL Sodium 135 L (137-145) mmol/L Chloride 92 L (98-107) mmol/L Carbon Dioxide 39 H (22-30) mmol/L Glucose 231 H (74-99) mg/dL POC Glucose (mg/dL) 216 H (75-99) mg/dL Assessment and Plan Assessment: Acute on chronic systolic CHF exacerbation -Switch to PO lasix today -Echo with WMA and EF of 45%, but improved EF from 2019 -Cardiology consult -Intake and output, daily weights, fluid restriction -Cardiac monitoring -Monitor electrodes daily Type II DM Hypertension Hyperlipidemia -Continue with home meds -Insulin sliding scale blood glucose monitoring -Check A1c DVT prophylaxis -Heparin subcu CODE STATUS: Full Code Anticipated discharge date: 2-[address]: Home
[2021-03-17 11:36] LABS: Glucose,Whole Blood 232 mg/dL (75-99)
[2021-03-17 11:59] LABS: Nucleated Red Blood Cells 0 /100 WBC (0-0)
[2021-03-17 12:00] LABS: Eosinophils # (M) 0.15 k/uL (0-0.7); Lymphocytes # (M) 1.52 k/uL (1.0-4.8); Monocytes # (M) 0.84 k/uL (0-1.0); Neutrophils # (M) 5.09 k/uL (1.3-7.7); Neutrophils % (M) 67 %; Total Cells Counted 100
--- NOTE | 2021-03-17 13:09 | P.PN ---
Subjective This is an 81-year-old male past medical history significant for coronary artery disease status post bypass grafting and subsequent stent p lacement to the SVG-circumflex 11/01/2018, PCI distal RCA and PDA and PCI SVG-OM in 07/2018, hypertension, dyslipidemia, dementia, diabetes mellitus. He follows with Dr. Aponte. We have in consultation for congestive heart failure. Patient seen at bedside, no acute distress. He states that he does not have any shortness of breath or chest pain. Overnight he pulled out his vines with bleeding afterwards, Hgb is stable He is maintaining oxygen saturations on 2 L nasal cannula. He denies any chest pain or chest pressure. No heart racing or fluttering. Edema is improving. I/Os with 4.3L urine output over the past 24 hours. Echocardiogram revealed EF of 4045 percent, basal LV wall hypokinetic, mild left ear tissue mild tricuspid regurgitation. VQ scan revealed intermediate probabilty for PE VITALS: reviewed GENERAL: Well-appearing, well-nourished and in no acute distress. NECK: Supple without JVD or thyromegaly. LUNGS: Breath sounds are diminished bilaterally. Respiration equal and unlabored. No wheezes, rales or rhonchi. HEART: Regular rate and rhythm without murmurs, rubs or gallops. S1 and S2 heard. EXTREMITIES: Normal range of motion no edema. No clubbing or cyanosis. Per ipheral pulses intact and strong. NEURO: Is confused alert, oriented to person TELEMETRY: Sinus rhythm LABS: Sodium 135, potassium 3.8, BUN 17, serum creatinine 0.9, magnesium 1.6, hemoglobin 12.6 IMPRESSION: Congestive diastolic heart failure Elevated d-dimer, VQ scan revealed intermediate probability for pulmonary embolism Hypertension History of non-sustained ventricular tachycardia Coronary artery disease status post bypass grafting and subsequent stent placement to the SVG-circumflex 11/01/2018, PCI distal RCA and PDA and PCI SVG- OM in 07/2018 Hypertension Dyslipidemia Dementia Type 2 diabetes mellitus PLAN Switch to PO Lasix today Continue Eliquis Continue home cardiac medications Patient is stable from cardiology perspective Further recommendations will be based upon clinical course The patient has been seen and evaluated by nurse practitioner and coordinating physician. Objective - Vital Signs Vital signs: Vital Signs Temp 97.7 F 03/17/21 11:49 Pulse 66 03/17/21 11:49 Resp 18 03/17/21 11:49 BP 146/73 03/17/21 11:49 Pulse Ox 96 03/17/21 11:49 Intake & Output 03/16/21 03/17/21 03/17/21 18:59 06:59 18:59 Intake Total 120 240 Output Total 4350 1475 Balance -1599 -2752 Weight 108.1 kg 104 kg Intake: Oral 120 240 Output: Urine 4350 1475 Other: Voiding Method Indwelling Catheter Indwelling Catheter Indwelling Catheter # Bowel Movements 0 - Labs CBC & Chem 7: 03/17/21 08:18 03/17/21 08:18 Labs: Abnormal Lab Results - Last 24 Hours (Table) 03/16/21 03/16/21 03/17/21 Range/Units 16:36 20:24 06:09 Hgb (13.0-17.5) gm/dL MCHC (31.0-37.0) g/dL Sodium (137-145) mmol/L Chloride (98-107) mmol/L Carbon Dioxide (22-30) mmol/L Glucose (74-99) mg/dL POC Glucose (mg/dL) 216 H 283 H 216 H (75-99) mg/dL 03/17/21 03/17/21 03/17/21 Range/Units 08:18 08:18 11:34 Hgb 12.6 L (13.0-17.5) gm/dL MCHC 30.6 L (31.0-37.0) g/dL Sodium 135 L (137-145) mmol/L Chloride 92 L (98-107) mmol/L Carbon Dioxide 39 H (22-30) mmol/L Glucose 231 H (74-99) mg/dL POC Glucose (mg/dL) 232 H (75-99) mg/dL
[2021-03-17 16:40] LABS: Glucose,Whole Blood 261 mg/dL (75-99)
[2021-03-17 20:04] LABS: Glucose,Whole Blood 276 mg/dL (75-99)
[2021-03-17] MEDS: PRAVASTATIN SODIUM 40 MG TAB PO SCH (21:05)
[2021-03-17] MEDS: TAMSULOSIN 0.4 MG CAP.ER.24H PO SCH (21:05)
[2021-03-18] MEDS: traMADol 50 MG TAB PO PRN (02:11)
[2021-03-18 06:01] LABS: Glucose,Whole Blood 243 mg/dL (75-99)
[2021-03-18] MEDS: carvediloL 3.125 MG TAB PO SCH (06:29)
[2021-03-18] MEDS: LEVOTHYROXINE 25 MCG TAB PO SCH (06:29)
[2021-03-18] MEDS: INSULIN ASPART (NovoLOG) 100 UNIT/ML VIAL SQ SCH ×2 (06:29→12:30)
[2021-03-18] MEDS ORDERED: FUROSEMIDE 40 MG TAB PO SCH (09:00)
[2021-03-18] MEDS: APIXABAN 5 MG TAB PO SCH (09:04)
[2021-03-18] MEDS: AMIODARONE 100 MG TAB PO SCH (09:04)
[2021-03-18] MEDS: CLOPIDOGREL 75 MG TAB PO SCH (09:04)
[2021-03-18] MEDS: GABAPENTIN 300 MG CAP PO SCH (09:06)
[2021-03-18] MEDS: ISOSORBIDE MONONITRATE ER 15 MG TAB PO SCH (09:07)
[2021-03-18] MEDS: MULTIVITAMINS, THERA 1 EACH TAB PO SCH (09:07)
[2021-03-18] MEDS: SACUBITRIL/VALSARTAN 24 MG-26 MG TABLET PO SCH (09:08)
[2021-03-18 11:17] VITALS: RESP 17
--- NOTE | 2021-03-18 11:21 | P.PN ---
Subjective Progress Note Date: 03/18/21 Hospital course: Patient is a Physical exam: Vital signs reviewed and stable. General: Nontoxic, no distress and appears stated age. Derm: Skin warm and dry, normal coloration for ethnicity. Head: Atraumatic, normocephalic and symmetric. Eyes: EOMs intact, no lid lag, and anicteric sclera Mouth: no lip lesions, mucus membranes moist Cardiovascular: regular rate and rhythm with normal S1S2, no murmur, positive posterior tibial pulses bilaterally, and cap refill < 2 seconds. Lungs: Respirations even, regular, and unlabored on room air. Lungs CTA bilaterally, no rhonchi, no rales, no wheezing, and no accessory muscle usage. Abdominal: soft, nontender to palpation, no guarding, no appreciable organomegaly Ext: ROM intact. No gross muscle atrophy, no edema, no contractures Neuro: Speech clear, face symmetrical and CN II-XII grossly intact with no noted focal neuro deficits Psych: Alert and oriented to person, place, time, and situation. Appropriate and pleasant affect. Assessment and Plan of Care: Acute on chronic systolic CHF exacerbation -Switch to PO lasix today -Echo with WMA and EF of 45%, but improved EF from 2019 -Cardiology consult -Intake and output, daily weights, fluid restriction -Cardiac monitoring -Monitor electrodes daily Type II DM Hypertension Hyperlipidemia -Continue with home meds -Insulin sliding scale blood glucose monitoring -Check A1c DVT prophylaxis -Heparin subcu CODE STATUS: Full Code Anticipated discharge date: 2-[address]: Home CODE STATUS:[] DVT prophylaxis: [] Discussed with: [] Anticipated discharge date: [] Anticipated discharge place: [] A total of [] minutes was spent on the care of this complex patient more than 50% of the time was spent in counseling and care coordination. Objective - Vital Signs Vital signs: Vital Signs Temp 98.6 F 03/18/21 07:53 Pulse 71 03/18/21 08:00 Resp 17 03/18/21 08:00 BP 145/70 03/18/21 07:53 Pulse Ox 97 03/18/21 07:53 Intake & Output 03/17/21 03/18/21 03/18/21 18:59 06:59 18:59 Intake Total 480 240 360 Output Total 1950 1000 400 Balance -1470 -760 -40 Weight 104 kg 106.5 kg Intake: Oral 480 240 360 Output: Urine 1950 1000 400 Other: Voiding Method Indwelling Catheter Indwelling Catheter Indwelling Catheter - Labs CBC & Chem 7: 03/17/21 08:18 03/17/21 08:18 Labs: Abnormal Lab Results - Last 24 Hours (Table) 03/17/21 03/17/21 03/17/21 Range/Units 11:34 16:38 20:03 POC Glucose (mg/dL) 232 H 261 H 276 H (75-99) mg/dL 03/18/21 Range/Units 06:00 POC Glucose (mg/dL) 243 H (75-99) mg/dL
[2021-03-18 11:45] LABS: Glucose,Whole Blood 254 mg/dL (75-99)
[2021-03-18 11:49] VITALS: BP 154/72; PULSE 77; TEMP 98.8
[2021-03-18] MEDS ORDERED: MAGNESIUM OXIDE 400 MG TAB PO SCH (12:30)
--- NOTE | 2021-03-18 12:36 | P.DS ---
<Jv Basilio - Last Filed: 03/18/21 13:01> Providers Expected date of discharge: 03/18/21 Hospital Course: Discharge Diagnosis: Acute on chronic systolic CHF exacerbation, continue Lasix 40 mg daily Elevated d-dimer and VQ scan revealing intermediate possibility for Pulmonary Emboli, Continue anticoagulant with Eliquis until further directed by plasma specialist. Insulin-dependent type 2 diabetes mellitus Hypertension Hyperlipidemia Coronary artery disease status post CABG and stenting Dementia, baseline A&O 1-2 Hypomagnesemia, replaced Hospital Course: Patient is an 81-year-old male with a past medical history of CAD status post CABG and stenting, chronic systolic heart failure, hypertension, hyperlipidemia, nonsustained V. tach, insulin-dependent diabetes mellitus, and dementia. He presented to the emergency department on 03/13/21 with a chief complaint of generalized weakness, bilateral lower extremity edema and swelling of his abdomen. He underwent extensive evaluation in the emergency department. EKG was completed revealing for further 67 bpm with a right bundle branch block. Chest x-ray showing congestive heart failure changes with cardiomegaly and mild pulmonary vascular congestion. ProBNP 4870. Troponin 0.022, 0.029, and 0.029. Patient was admitted under our services for acute systolic heart failure exacerbation and cardiology was consulted. Patient placed on IV Lasix and underwent diuresis with close monitoring of I's and O's throughout hospitalization. Echocardiogram revealed mildly impaired EF between 40 and 45% with left ventricular hypokinesis and mild pulmonary hypertension. On 03/15/21 patient had elevated d-dimer and was taken for VQ scan. VQ scan revealed intermediate possibility for pulmonary emboli and pt was started on anticoagulant with Eliquis. Patient had 11 lb (5 kg) weight loss during hospitalization through diuresis and has been transitioned over to oral Lasix. Multiple medication changes were made by cardiology including changing metoprolol to carvedilol, decreasing amiodarone dose, discontinuation of Losartan, and starting patient on Entresto. Despite treatment of his CHF exacerbation patient continued to feel weak and was having difficulties with ambulation. Patient was evaluated by physical and occupational therapy whom recommended patient will need retirement facility upon discharge. Patient has been accepted for rehabilitation at [facility] and is medically stable for discharge to SNF at this time. Patient to follow up outpatient with PCP and cardiology and prescription being sent for repeat labs in 3 days to continue to follow renal function and electrolytes while diuresing, results to be sent to PCP and cardiology for follow-up. Physical examination: Patient seen and examined at bedside. He is alert to self and situation and remains confused to time and place, which per report is his baseline mentation. Patient is medically stable for discharge to Rehabilitation Center at this time. Discussed with patient plan of care for transfer to [facility] and called patient's son, Luis to notify him. Attempts were made at contacting patient's , Chloe, however there was no answer. Patient's son states he will notify his mother of transfer to rehab facility. Patient denies having any complaints or concerns at this time. He denies headache, lightheadedness, dizziness, chest pain, palpitations, shortness of breath, or experiencing any numbness/tingling/weakness in his extremities. Patient reports significant improvement in lower extremity swelling. He has been weaned off of oxygen and Dubose catheter was removed and patient urinating without difficulties. Vital signs reviewed and stable. General: Nontoxic, no distress and appears stated age. Derm: Skin warm and dry, normal coloration for ethnicity. Head: Atraumatic, normocephalic and symmetric. Eyes: EOMs intact, no lid lag, and anicteric sclera Mouth: no lip lesions, mucus membranes moist Cardiovascular: regular rate and rhythm with normal S1S2, no murmur, positive posterior tibial pulses bilaterally, and cap refill < 2 seconds. Lungs: Respirations even, regular, and unlabored on room air. Lungs CTA bilaterally, no rhonchi, no rales, no wheezing, and no accessory muscle usage. Abdominal: soft, nontender to palpation, no guarding, no appreciable organomegaly Ext: ROM intact. No gross muscle atrophy, no edema, no contractures Neuro: Speech clear, face symmetrical and CN II-XII grossly intact with no noted focal neuro deficits Psych: Alert and oriented to person, place, time, and situation. Appropriate and pleasant affect. A total of 45 minutes of time were spent preparing this complex discharge summary. Assessment: agree with note and plan Patient Condition at Discharge: Stable Plan - Discharge Summary Discharge Rx Participant: No New Discharge Prescriptions: New carvediloL [Coreg] 3.125 mg PO BID-W/MEALS tab Apixaban [Eliquis] 5 mg PO BID tab Furosemide [Lasix] 40 mg PO DAILY tab Amiodarone [Cordarone] 100 mg PO DAILY@0900 tab Sacubitril/Valsartan [Entresto 24 mg-26 mg Tablet] 1 each PO BID tablet Magnesium Oxide [Mag-Ox] 400 mg PO DAILY tab Continue Tamsulosin [Flomax] 0.4 mg PO HS@2100 Pravastatin Sodium [Pravachol] 40 mg PO HS@2100 Multivitamins, Thera [Multivitamin (formulary)] 1 tab PO DAILY@0900 traMADol HCL [Ultram] 50 mg PO Q6H PRN #12 tablet PRN Reason: Pain Acetaminophen Tab [Tylenol] 650 mg PO Q6H PRN PRN Reason: Pain Nitroglycerin Sl Tabs [Nitrostat] 0.4 mg SUBLINGUAL Q5M PRN #30 tab PRN Reason: Chest Pain Insulin Glargine [Lantus Vial] 60 unit SQ DAILY@0900 Gabapentin 600 mg PO TID@0900,1600,2100 Isosorbide Mononitrate ER [Imdur] 15 mg PO BID@0900,2100 Cholecalciferol [Vitamin D3 (25 Mcg = 1000 Iu)] 25 mcg PO HS@2100 Omeprazole 40 mg PO DAILY@0900 INSULIN ASPART (NovoLOG) [NovoLOG (formulary)] See Protocol SQ ACHS Meclizine [Antivert] 25 mg PO TID PRN PRN Reason: Vertigo Clopidogrel [Plavix] 75 mg PO DAILY@0900 Docusate [Colace] 100 mg PO DAILY@0900 Levothyroxine Sodium [Synthroid] 25 mcg PO AC-BRKFST Hyoscyamine Sulfate [Hyoscyamine Sulfate SL] 0.125 mg SL TID PRN PRN Reason: cramping Zinc 50 mg PO DAILY@0900 Discontinued Hydrocodone/Acetaminophen [[place] 7.5-325] 1 tab PO BID@0900,2100 Losartan [Cozaar] 25 mg PO HS@2100 Amiodarone [Cordarone] 200 mg PO DAILY@0900 Aspirin 81 mg PO DAILY@0900 Metoprolol Tartrate [Lopressor] 25 mg PO BID@0900,2100 Discharge Medication List Tamsulosin [Flomax] 0.4 mg PO HS@209907/14/17 [History] Pravastatin Sodium [Pravachol] 40 mg PO HS@2100 08/03/17 [History] Multivitamins, Thera [Multivitamin (formulary)] 1 tab PO DAILY@0900 07/04/18 [History] traMADol HCL [Ultram] 50 mg PO Q6H PRN #12 tablet 09/13/18 [Rx] Acetaminophen Tab [Tylenol] 650 mg PO Q6H PRN 09/14/18 [History] Nitroglycerin Sl Tabs [Nitrostat] 0.4 mg SUBLINGUAL Q5M PRN #30 tab 11/02/18 [Rx] Insulin Glargine [Lantus Vial] 60 unit SQ DAILY@0900 12/14/18 [History] Gabapentin 600 mg PO TID@0900,1600,209902/08/19 [History] Isosorbide Mononitrate ER [Imdur] 15 mg PO BID@0900,209902/08/19 [History] Cholecalciferol [Vitamin D3 (25 Mcg = 1000 Iu)] 25 mcg PO HS@209903/13/21 [History] Clopidogrel [Plavix] 75 mg PO DAILY@0903/13/21 [History] Docusate [Colace] 100 mg PO DAILY@0903/13/21 [History] Hyoscyamine Sulfate [Hyoscyamine Sulfate SL] 0.125 mg SL TID PRN 03/13/21 [History] INSULIN ASPART (NovoLOG) [NovoLOG (formulary)] See Protocol SQ ACHS 03/13/21 [History] Levothyroxine Sodium [Synthroid] 25 mcg PO AC-BRKFST 03/13/21 [History] Meclizine [Antivert] 25 mg PO TID PRN 03/13/21 [History] Omeprazole 40 mg PO DAILY@0903/13/21 [History] Zinc 50 mg PO DAILY@89903/13/21 [History] Amiodarone [Cordarone] 100 mg PO DAILY@0900 tab 03/18/21 [Rx] Apixaban [Eliquis] 5 mg PO BID tab 03/18/21 [Rx] Furosemide [Lasix] 40 mg PO DAILY tab 03/18/21 [Rx] Magnesium Oxide [Mag-Ox] 400 mg PO DAILY tab 03/18/21 [Rx] Sacubitril/Valsartan [Entresto 24 mg-26 mg Tablet] 1 each PO BID tablet 03/18/21 [Rx] carvediloL [Coreg] 3.125 mg PO BID-W/MEALS tab 03/18/21 [Rx] Follow up Appointment(s)/Referral(s): Dean Evangelista MD [Primary Care Provider] - 1-2 days John Aponte MD [STAFF PHYSICIAN] - 1 Week Ambulatory/Diagnostic Orders: Basic Metabolic Panel [LAB.AMB] Time Frame: 3 Days, Location: None Selected Magnesium [LAB.AMB] Location: None Selected Activity/Diet/Wound Care/Special Instructions: Activity: As tolerated. Take breaks as needed. Diet: Heart healthy and carb consistent diet. Avoid salts, or foods with hidden salts such as canned or boxed foods and frozen dinners. Extra salt makes your heart work harder and traps the fluid in your body for longer. Special Instructions: Weigh yourself every morning after you urinate. If you gain 3 pounds overnight or more than 5 pounds in one week, call your primary physician and plasma specialist for guidance on your medications or they may want to see you in their office. Keep a daily log of your weights and be sure to bring with you at follow up visits with your PCP and plasma specialist. Take all of your medications as directed, especially your water pills. NEVER skip a dose. And remember to keep all of your doctor's appointments and follow- up as needed. You are also being discharged home on a blood thinner, Eliquis for treatment of pulmonary embolism. This is very important to take daily as directed until otherwise advised by your plasma specialist-Dr. Aponte. Being that you are being placed on a blood thinner it is very important to watch for any signs of bleeding and notify your doctor immediately if you notice any bleeding. It is also important to remove any trip hazards such as rugs or loose extension cords from your home to prevent unnecessary falls and if you do experience a fall or head injury, it is extremely important to be evaluated by a medical provider immediately to ensure no internal bleeding. Elevate your legs when you are not up moving around to help with circulation and prevent swelling. Compression stockings are also a great way to improve lower extremity circulation and prevent/improve lower extremity edema. Call your primary care provider and plasma specialist if you notice any extra swelling in your legs, ankles, feet or abdomen, if you have a new dry cough, if your shortness of breath worsens with activity or at rest, or if you feel more fatigued. Thank you for allowing us to participate in your care, it was truly a pleasure having you for our patient!!! Discharge Disposition: TRANSFER TO SNF/ECF <Devorah Tristan - Last Filed: 03/19/21 09:12> Providers Date of admission: 03/13/21 18:01 Attending physician: Dorothy Vasquez MD Consults: 03/13/21 18:05 Consult Physician Routine Consulting Provider: Erlinda Moreno Consult Reason/Comments: Acute CHF exacerbation Do you want consulting provider notified?: Yes Primary care physician: Dean Evangelista
--- NOTE | 2021-03-18 13:35 | P.PN ---
Subjective This is an 81-year-old male past medical history significant for coronary artery disease status post bypass grafting and subsequent stent p lacement to the SVG-circumflex 11/01/2018, PCI distal RCA and PDA and PCI SVG-OM in 07/2018, hypertension, dyslipidemia, dementia, diabetes mellitus. He follows with Dr. Aponte. We have in consultation for congestive heart failure. Patient seen at bedside, no acute distress. He is maintaining oxygen saturations on room air this morning. weaned off oxygen. He denies any chest pain or chest pressure. No heart racing or fluttering. Edema has significantly resolved. He has been transitioned to PO Lasix yesterday. I/Os with 2950mL urine output over the past 24 hours. Echocardiogram revealed EF of 4045 percent, basal LV wall hypokinetic, mild left ear tissue mild tricuspid regurgitation. VQ scan revealed intermediate probabilty for PE VITALS: reviewed GENERAL: Well-appearing, well-nourished and in no acute distress. NECK: Supple without JVD or thyromegaly. LUNGS: Breath sounds are diminished bilaterally. Respiration equal and unlabored. No wheezes, rales or rhonchi. HEART: Regular rate and rhythm without murmurs, rubs or gallops. S1 and S2 heard. EXTREMITIES: Normal range of motion no edema. No clubbing or cyanosis. Peripheral pulses intact and strong. NEURO: Is confused alert, oriented to person TELEMETRY: Sinus rhythm IMPRESSION: Congestive diastolic heart failure Elevated d-dimer, VQ scan revealed intermediate probability for pulmonary embolism Hypertension History of non-sustained ventricular tachycardia Coronary artery disease status post bypass grafting and subsequent stent placement to the SVG-circumflex 11/01/2018, PCI distal RCA and PDA and PCI SVG- OM in 07/2018 Hypertension Dyslipidemia Dementia Type 2 diabetes mellitus PLAN Continue PO Lasix today Continue Eliquis Continue Entresto and carvedilol and amiodarone 100mg daily and plavix. Aspirin on hold with eliquis being given Continue home cardiac medications Patient is stable from cardiology perspective Patient to follow up with Dr. Aponte in 1-2 weeks. The patient has been seen and evaluated by nurse practitioner and coordinating physician. Objective - Vital Signs Vital signs: Vital Signs Temp 98.8 F 03/18/21 11:47 Pulse 77 03/18/21 11:47 Resp 17 03/18/21 11:47 BP 154/72 03/18/21 11:47 Pulse Ox 98 03/18/21 11:47 Intake & Output 03/17/21 03/18/21 03/18/21 18:59 06:59 18:59 Intake Total 480 240 360 Output Total 1950 1000 400 Balance -1470 -760 -40 Weight 104 kg 106.5 kg Intake: Oral 480 240 360 Output: Urine 1950 1000 400 Other: Voiding Method Indwelling Catheter Indwelling Catheter Indwelling Catheter - Labs CBC & Chem 7: 03/17/21 08:18 03/17/21 08:18 Labs: Abnormal Lab Results - Last 24 Hours (Table) 03/17/21 03/17/21 03/18/21 Range/Units 16:38 20:03 06:00 POC Glucose (mg/dL) 261 H 276 H 243 H (75-99) mg/dL 03/18/21 Range/Units 11:32 POC Glucose (mg/dL) 254 H (75-99) mg/dL
== END 2021-03-18 14:55 | DRG 291 ==
LOC: EC 15:26 → 3SCARD 18:01
PROVIDERS: ADMIT Hospitalist; ATTEND Hospitalist
DX: I11.0 Hypertensive heart disease with heart failure (principal); I50.23 Acute on chronic systolic (congestive) heart failure; I26.99 Other pulmonary embolism without acute cor pulmonale; I45.2 Bifascicular block; E11.9 Type 2 diabetes mellitus without complications; E78.5 Hyperlipidemia, unspecified; E83.42 Hypomagnesemia; F03.90 Unspecified dementia, unspecified severity, without behavioral disturbance, psychotic disturbance, mood disturbance, and anxiety; F41.9 Anxiety disorder, unspecified; I25.10 Atherosclerotic heart disease of native coronary artery without angina pectoris; I27.20 Pulmonary hypertension, unspecified; I44.0 Atrioventricular block, first degree; N40.0 Benign prostatic hyperplasia without lower urinary tract symptoms; R09.02 Hypoxemia; Z20.822 Contact with and (suspected) exposure to COVID-19; Z79.02 Long term (current) use of antithrombotics/antiplatelets; Z79.4 Long term (current) use of insulin; Z79.82 Long term (current) use of aspirin; Z79.890 Hormone replacement therapy; Z79.899 Other long term (current) drug therapy; Z80.42 Family history of malignant neoplasm of prostate; Z80.43 Family history of malignant neoplasm of testis; Z82.49 Family history of ischemic heart disease and other diseases of the circulatory system; Z85.46 Personal history of malignant neoplasm of prostate; Z86.14 Personal history of Methicillin resistant Staphylococcus aureus infection; Z86.010 Personal history of colon polyps; Z90.49 Acquired absence of other specified parts of digestive tract; Z91.041 Radiographic dye allergy status; Z95.1 Presence of aortocoronary bypass graft; Z95.5 Presence of coronary angioplasty implant and graft; Z96.652 Presence of left artificial knee joint; Z87.01 Personal history of pneumonia (recurrent)
CPT/HCPCS: 36415; 71045; 74019; 78582; 80048; 80053; 81003; 83036; 83735; 83880; 84484; 85025; 85379; 85610; 85730; 87635; 93306; 96374; 96375; 99285

== ENCOUNTER 2022-07-02 04:15 | Inpatient (IN) | payer MEDICARE, BC ==
[2022-07-02] MEDS ORDERED: SODIUM CHLORIDE 0.9% 1,000 ML IV STA (04:36)
[2022-07-02] MEDS ORDERED: ASPIRIN 81 MG PO STA (04:36)
[2022-07-02 04:49] LABS: Basophils % (A) 1 %; Eosinophils # (A) 0.2 k/uL (0-0.7); Eosinophils % (A) 2 %; HCT 47.2 % (39.0-53.0); HGB 15.2 gm/dL (13.0-17.5); Lymphocytes # (A) 2.6 k/uL (1.0-4.8); Lymphocytes % (A) 31 %; MCH 29.6 pg (25.0-35.0); MCHC 32.2 g/dL (31.0-37.0); Mean Platelet Volume 8.9; Monocytes # (A) 0.6 k/uL (0-1.0); Monocytes % (A) 7 %; Neutrophils # (A) 4.6 k/uL (1.3-7.7); Neutrophils % (A) 56 %; Platelet Count 236 k/uL (150-450); RBC 5.13 m/uL (4.30-5.90); RDW 13.8 % (11.5-15.5); WBC 8.3 k/uL (3.8-10.6)
[2022-07-02 04:56] LABS: Albumin 4.5 g/dL (3.5-5.0); Calcium 9.6 mg/dL (8.4-10.2); Potassium 4.5 mmol/L (3.5-5.1); Total Bilirubin 0.3 mg/dL (0.2-1.3); Total Protein 7.6 g/dL (6.3-8.2)
[2022-07-02 05:01] LABS: INR 0.9 (<1.2); Partial Thromboplastin Time 24.1 sec (22.0-30.0); Prothrombin Time 9.5 sec (9.0-12.0)
[2022-07-02] MEDS ORDERED: DEXTROSE 5% IN WATER 100 ML with AMIODARONE 150 MG IV ONE (05:01)
[2022-07-02] MEDS ORDERED: AMIODARONE 360 MG in DEXTROSE 5% IN WATER 200 ML IV ONE ×2 (05:15)
--- NOTE | 2022-07-02 05:29 | ED ---
General Adult HPI - General Chief complaint: Chest Pain Stated complaint: chest pain Time Seen by Provider: 07/02/22 04:20 Source: patient, family Mode of arrival: wheelchair Limitations: no limitations - History of Present Illness Initial comments: Dictation was produced using [employer]ev[employer] dictation software. please excuse any grammatical, word or spelling errors. Chief Complaint: 82-year-old male presents to the emergency department for chest pain History of Present Illness: She is 82-year-old male presents emergency part for chest pain. Patient states it happened in the middle the night. Patient's provided patient with 3 nitroglycerin with no symptom resolution. Patient does take anti coagulation medications. He said the pain is like a pressure in his substernal area. Nonradiating not associated diaphoresis or nausea. Patient is on multiple cardiac medications. Patient states she's been compliant with all of his meds. The ROS documented in this emergency department record has been reviewed and confirmed by me. Those systems with pertinent positive or negative responses have been documented in the HPI. All other systems are other negative and/or noncontributory. - Related Data Home Medications Medication Instructions Recorded Confirmed Tamsulosin [Flomax] 0.4 mg PO HS@209907/14/17 03/13/21 Pravastatin Sodium [Pravachol] 40 mg PO HS@209908/03/17 03/13/21 Multivitamins, Thera [Multivitamin 1 tab PO DAILY@0900 07/04/18 03/13/21 (formulary)] Acetaminophen Tab [Tylenol] 650 mg PO Q6H PRN 09/14/18 03/13/21 Insulin Glargine [Lantus Vial] 60 unit SQ DAILY@0900 12/14/18 03/13/21 Gabapentin 600 mg PO TID@0900,1600,209902/08/19 03/13/21 Isosorbide Mononitrate ER [Imdur] 15 mg PO BID@0900,209902/08/19 03/13/21 Cholecalciferol [Vitamin D3 (25 25 mcg PO HS@209903/13/21 03/13/21 Mcg = 1000 Iu)] Clopidogrel [Plavix] 75 mg PO DAILY@0900 03/13/21 03/13/21 Docusate [Colace] 100 mg PO DAILY@0900 03/13/21 03/13/21 Hyoscyamine Sulfate [Hyoscyamine 0.125 mg SL TID PRN 03/13/21 03/13/21 Sulfate SL] INSULIN ASPART (NovoLOG) [NovoLOG See Protocol SQ ACHS 03/13/21 03/13/21 (formulary)] Levothyroxine Sodium [Synthroid] 25 mcg PO AC-BRKFST 03/13/21 03/13/21 Meclizine [Antivert] 25 mg PO TID PRN 03/13/21 03/13/21 Omeprazole 40 mg PO DAILY@0900 03/13/21 03/13/21 Zinc 50 mg PO DAILY@0900 03/13/21 03/13/21 Previous Rx's Medication Instructions Recorded traMADol HCL [Ultram] 50 mg PO Q6H PRN #12 tablet 09/13/18 Nitroglycerin Sl Tabs [Nitrostat] 0.4 mg SUBLINGUAL Q5M PRN #30 tab 11/02/18 Amiodarone [Cordarone] 100 mg PO DAILY@0900 tab 03/18/21 Apixaban [Eliquis] 5 mg PO BID tab 03/18/21 Furosemide [Lasix] 40 mg PO DAILY tab 03/18/21 Magnesium Oxide [Mag-Ox] 400 mg PO DAILY tab 03/18/21 Sacubitril/Valsartan [Entresto 24 1 each PO BID tablet 03/18/21 mg-26 mg Tablet] carvediloL [Coreg] 3.125 mg PO BID-W/MEALS tab 03/18/21 Allergies Allergy/AdvReac Type Severity Reaction Status Date / Time Iodinated Contrast Media Allergy Rash/Hives Verified 07/02/22 04:19 iodine Allergy Rash/Hives Verified 07/02/22 04:19 Penicillins Allergy Swelling Verified 07/02/22 04:19 celecoxib [From Celebrex] AdvReac headache Verified 07/02/22 04:19 duloxetine [From Cymbalta] AdvReac PRICKLY Verified 07/02/22 04:19 FEELING IN HEAD povidone-iodine AdvReac Itchy,red Verified 07/02/22 04:19 [From Betadine] skin soap [From Betadine] AdvReac Itchy,red Verified 07/02/22 04:19 skin Surgical Scrub AdvReac Unknown Itching, Uncoded 07/02/22 04:19 Red skin Review of Systems ROS Statement: Those systems with pertinent positive or pertinent negative responses have been documented in the HPI. ROS Other: All systems not noted in ROS Statement are negative. Past Medical History Past Medical History: Coronary Artery Disease (CAD), Cancer, Diabetes Mellitus, GERD/Reflux, Hyperlipidemia, Hypertension, Memory Impairment, Osteoarthritis (OA), Pneumonia, Prostate Disorder, Sleep Apnea/CPAP/BIPAP Additional Past Medical History / Comment(s): [place] 08/23/[address]/cardiogenic shock/balloon pump/CHB with temporary pacer/thrombocytopenia. 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, IDDM type II, sepsis History of Any Multi-Drug Resistant Organisms: MRSA Date of last positivie culture/infection: 08/30/18 MDRO Source:: Sputum Past Surgical History: Appendectomy, Back Surgery, Cholecystectomy, Coronary Bypass/CABG, Heart Catheterization, Heart Catheterization With Stent, Hernia Repair, Joint Replacement, Orthopedic Surgery Additional Past Surgical History / Comment(s): 08/23/18 PCI with stent to RCA, cardiac caths, 2008 CABG 3 vessels, inguinal and incisional hernia repairs, triple incisional hernia repair/lysis of adhesions, multiple surgeries for abdominal adhessions, fatty tumors removed posterior neck, ORIF R ankle/R tib fib, total L knee arthroplasty, L rotator cuff repair, bilateral carpal tunnel releases, colonoscopies/bening polyp, EGDs. Past Anesthesia/Blood Transfusion Reactions: No Reported Reaction Date of Last Stent Placement:: 08/23/18 Past Psychological History: Anxiety Smoking Status: Never smoker Past Alcohol Use History: None Reported Past Drug Use History: None Reported - Past Family History Father History Unknown: Yes Family Medical History: Cancer Additional Family Medical History / Comment(s): PROSTATE CANCER Son(s) Family Medical History: Cancer Additional Family Medical History / Comment(s): TESTICULAR CANCER Mother Family Medical History: Coronary Artery Disease (CAD), Hypertension Sister(s) Family Medical History: Cancer General Exam - General Exam Comments Initial Comments: PHYSICAL EXAM: General Impression: Alert and oriented x3, not in acute distress, pale HEENT: Normocephalic atraumatic, extra-ocular movements intact, pupils equal and reactive to light bilaterally, mucous membranes moist. Cardiovascular: Tachycardic Chest: Able to complete full sentences, no retractions, no tachypnea Abdomen: abdomen soft, non-tender, non-distended, no organomegaly Musculoskeletal: Pulses present and equal in all extremities, no peripheral edema Motor: no focal deficits noted Neurological: CN II-XII grossly intact, no focal motor or sensory deficits noted Skin: Intact with no visualized rashes Psych: Normal affect and mood Limitations: no limitations Course Vital Signs 07/02/22 07/02/22 07/02/22 04:16 04:28 04:30 Temperature 98.1 F Pulse Rate 142 H 134 H 135 H Respiratory 22 Rate Blood Pressure 110/73 O2 Sat by Pulse 98 Oximetry 07/02/22 07/02/22 07/02/22 04:33 04:40 04:50 Temperature Pulse Rate 133 H 131 H 130 H Respiratory 16 Rate Blood Pressure 96/48 96/48 96/48 O2 Sat by Pulse 96 95 95 Oximetry 07/02/22 07/02/22 07/02/22 05:00 05:10 05:20 Temperature Pulse Rate 130 H 126 H 138 H Respiratory Rate Blood Pressure 92/56 111/61 97/60 O2 Sat by Pulse 98 98 97 Oximetry 07/02/22 07/02/22 07/02/22 05:28 05:30 05:39 Temperature Pulse Rate 125 H 122 H 80 Respiratory 16 16 Rate Blood Pressure 97/60 97/60 O2 Sat by Pulse 97 97 97 Oximetry 07/02/22 07/02/22 07/02/22 05:40 05:41 05:50 Temperature Pulse Rate 78 82 Respiratory Rate Blood Pressure 84/37 119/65 112/58 O2 Sat by Pulse 98 98 Oximetry 07/02/22 07/02/22 07/02/22 06:00 06:10 06:20 Temperature Pulse Rate 82 80 75 Respiratory Rate Blood Pressure 112/58 108/56 108/56 O2 Sat by Pulse 97 Oximetry 07/02/22 06:30 Temperature Pulse Rate 76 Respiratory Rate Blood Pressure 108/56 O2 Sat by Pulse Oximetry - Reevaluation(s) Reevaluation #1: 07/02/22 06:35 Patient reevaluated at 6:30 AM. He continues to maintain sinus rhythm. Patient denies any chest pain whatsoever. Medical Decision Making - Medical Decision Making Was pt. sent in by a medical professional or institution ([facility]ama, [employer], urgent care, hospital, or retirement...) When possible be specific @ -No Did you speak to anyone other than the patient for history (EMS, parent, family, police, friend...)? What history was obtained from this source @ -No Did you review nursing and triage notes (agree or disagree)? Why? @ -I reviewed and agree with nursing and triage notes Were old charts reviewed (outside hosp., previous admission, EMS record, old EKG, old radiological studies, urgent care reports/EKG's, retirement records)? Report findings @ -Per chart was reviewed showing patient has extensive cardiac history. 2 patient was admitted for a CHF exacerbation. Differential Diagnosis (chest pain, altered mental status, abdominal pain women, abdominal pain men, vaginal bleeding, musculoskeletal, weakness, fever, dyspnea, syncope, headache, dizziness, GI bleed, back pain, seizure, CVA, palpatations, mental health)? @ -Differential Chest Pain: Stable Angina, Unstable Angina, STEMI, NSTEMI Aortic Dissection, Pneumothorax, Musculoskeletal, Esophageal Spasm GERD, Cholecystitis, Pancreatitis, Zoster, this is not meant to be an all-inclusive list. EKG interpreted by me (3pts min.). @ -Initial EKG showed a tachycardia dysrhythmia with aberrancy. Waveforms appear to be baseline. Tachycardic 135 any obvious P waves suggesting supraventricular tachycardia versus AVNRT. X-rays interpreted by me (1pt min.). @ -No acute processes CT interpreted by me (1pt min.). @ -None done U/S interpreted by me (1pt. min.). @ -None done What testing was considered but not performed or refused? (CT, X-rays, U/S, labs)? Why? @ -None What meds were considered but not given or refused? Why? @ -None Did you discuss the management of the patient with other professionals (pro fessionals i.e. [facility]ama, [employer]ESSION[employer], lab, RT, psych nurse, protective services social worker, acute care physician, teacher, executive officer, leather case finisher)? Give summary @ -No Was smoking cessation discussed for >3mins.? @ -No Was critical care preformed (if so, how long)? @ -Yes, 33 minutes Were there social determinants of health that impacted care today? How? (Homelessness, low income, unemployed, alcoholism, drug addiction, transportation, low edu. Level, literacy, decrease access to med. care, prison, rehab)? @ -No Was there de-escalation of care discussed even if they declined (Discuss DNR or withdrawal of care, Hospice)? DNR status @ -No What co-morbidities impacted this encounter? (DM, HTN, Smoking, COPD, CAD, Cancer, CVA, ARF, Chemo, Hep., AIDS, mental health diagnosis, sleep apnea, morbid obesity)? @ -None Was patient admitted / discharged? Hospital course, mention meds given and route, prescriptions, significant lab abnormalities, going to OR and other pertinent info. @ -82-year-old male with multiple cardiac pulmonary comorbid's presents to the ER for chest pain. Initially he was very tachycardic showing tachycardia dysrhythmia and EKG suggestive of atrial tachydysrhythmia. Patient was having associated chest pain. Patient is given labs and started on amiodarone. Patient converted and his chest pain resolved. Laboratory evaluation shows dry elevation of 0.150 which is above his baseline. Rest of labs within acceptable limits. Patient given aspirin. Patient reevaluated with cardiology consultation Undiagnosed new problem with uncertain prognosis? @ -No Drug Therapy requiring intensive monitoring for toxicity (Heparin, Nitro, Insulin, Cardizem)? @ -No Were any procedures done? @ -No Diagnosis/symptom? Acute, or Chronic, or Acute on Chronic? Uncomplicated (without systemic symptoms) or Complicated (systemic symptoms)? @ -1. Chest pain, 2. Tachydysrhythmia Side effects of treatment? @ -No Exacerbation, Progression, or Severe Exacerbation? @ -No Poses a threat to life or bodily function? How? (Chest pain, USA, NE, pneumonia, PE, COPD, DKA, ARF, appy, cholecystitis, CVA, Diverticulitis, Homicidal, Suicidal, threat to staff... and all critical care pts) @ -yes - Lab Data Result diagrams: 07/02/22 04:36 07/02/22 04:36 Lab Results 07/02/22 07/02/22 07/02/22 Range/Units 04:36 04:36 04:36 WBC 8.3 (3.8-10.6) k/uL RBC 5.13 (4.30-5.90) m/uL Hgb 15.2 (13.0-17.5) gm/dL Hct 47.2 (39.0-53.0) % MCV 92.0 (80.0-100.0) fL MCH 29.6 (25.0-35.0) pg MCHC 32.2 (31.0-37.0) g/dL RDW 13.8 (11.5-15.5) % Plt Count 236 (150-450) k/uL MPV 8.9 Neutrophils % 56 % Lymphocytes % 31 % Monocytes % 7 % Eosinophils % 2 % Basophils % 1 % Neutrophils # 4.6 (1.3-7.7) k/uL Lymphocytes # 2.6 (1.0-4.8) k/uL Monocytes # 0.6 (0-1.0) k/uL Eosinophils # 0.2 (0-0.7) k/uL Basophils # 0.0 (0-0.2) k/uL PT 9.5 (9.0-12.0) sec INR 0.9 (<1.2) APTT 24.1 (22.0-30.0) sec Sodium 142 (137-145) mmol/L Potassium 4.5 (3.5-5.1) mmol/L Chloride 103 (98-107) mmol/L Carbon Dioxide 27 (22-30) mmol/L Anion Gap 12 mmol/L BUN 29 H (9-20) mg/dL Creatinine 1.20 (0.66-1.25) mg/dL Est GFR (CKD-EPI)AfAm 64 (>60 ml/min/1.73 sqM) Est GFR (CKD-EPI)NonAf 55 (>60 ml/min/1.73 sqM) Glucose 182 H (74-99) mg/dL Calcium 9.6 (8.4-10.2) mg/dL Magnesium 2.0 (1.6-2.3) mg/dL Total Bilirubin 0.3 (0.2-1.3) mg/dL AST 28 (17-59) U/L ALT 20 (4-49) U/L Alkaline Phosphatase 78 (38-126) U/L Troponin I (0.000-0.034) ng/mL Total Protein 7.6 (6.3-8.2) g/dL Albumin 4.5 (3.5-5.0) g/dL 07/02/22 Range/Units 04:36 WBC (3.8-10.6) k/uL RBC (4.30-5.90) m/uL Hgb (13.0-17.5) gm/dL Hct (39.0-53.0) % MCV (80.0-100.0) fL MCH (25.0-35.0) pg MCHC (31.0-37.0) g/dL RDW (11.5-15.5) % Plt Count (150-450) k/uL MPV Neutrophils % % Lymphocytes % % Monocytes % % Eosinophils % % Basophils % % Neutrophils # (1.3-7.7) k/uL Lymphocytes # (1.0-4.8) k/uL Monocytes # (0-1.0) k/uL Eosinophils # (0-0.7) k/uL Basophils # (0-0.2) k/uL PT (9.0-12.0) sec INR (<1.2) APTT (22.0-30.0) sec Sodium (137-145) mmol/L Potassium (3.5-5.1) mmol/L Chloride (98-107) mmol/L Carbon Dioxide (22-30) mmol/L Anion Gap mmol/L BUN (9-20) mg/dL Creatinine (0.66-1.25) mg/dL Est GFR (CKD-EPI)AfAm (>60 ml/min/1.73 sqM) Est GFR (CKD-EPI)NonAf (>60 ml/min/1.73 sqM) Glucose (74-99) mg/dL Calcium (8.4-10.2) mg/dL Magnesium (1.6-2.3) mg/dL Total Bilirubin (0.2-1.3) mg/dL AST (17-59) U/L ALT (4-49) U/L Alkaline Phosphatase (38-126) U/L Troponin I 0.150 H* (0.000-0.034) ng/mL Total Protein (6.3-8.2) g/dL Albumin (3.5-5.0) g/dL Disposition Clinical Impression: Chest pain, Tachyarrhythmia Disposition: ADMITTED IP TO THIS HOSP Condition: Fair Referrals: Dean Evangelista MD [Primary Care Provider] - 1-2 days Decision Time: 06:45
[2022-07-02] MEDS ORDERED: ETOMIDATE 2 MG/ML 10 ML VIAL IVP STA (05:35)
[2022-07-02] MEDS ORDERED: NALOXONE 0.4 MG/ML 1 ML VIAL IV PRN (06:33)
[2022-07-02] MEDS: SODIUM CHLORIDE 0.9% 1,000 ML IV SCH (06:46)
--- NOTE | 2022-07-02 06:58 | XR ---
EXAMINATION TYPE: XR chest 1V DATE OF EXAM: 07/02/2022 5:07 AM COMPARISON: Chest radiographs from 03/13/2021 TECHNIQUE: XR chest 1V Portable AP radiograph of the chest. CLINICAL INDICATION:Male, 82 years old with history of Chest Pain; FINDINGS: Lungs/Pleura: There is no evidence of pleural effusion, focal consolidation, or pneumothorax. Mild i nterstitial prominence. Heart/mediastinum: Cardiomediastinal silhouette is enlarged and stable. Musculoskeletal: No acute osseous pathology. Midline sternotomy wires are noted and stable. IMPRESSION: Cardiomegaly with persistent interstitial prominence which may represent chronic interstitial lung di sease or venous congestion. Correlate clinically.
[2022-07-02] MEDS ORDERED: ISOSORBIDE MONONITRATE ER 15 MG TAB PO SCH (10:45)
[2022-07-02] MEDS: AMIODARONE 450 MG in DEXTROSE 5% IN WATER 250 ML IV SCH ×2 (11:00)
[2022-07-02] MEDS ORDERED: HEPARIN SODIUM 1,000 UN/ML (10ML VL) IV PRN (11:12)
[2022-07-02] MEDS ORDERED: HEPARIN SODIUM 1,000 UN/ML (10ML VL) IV ONE (11:12)
[2022-07-02] MEDS ORDERED: FAMOTIDINE 20 MG/2 ML VIAL IV ONE (11:21)
[2022-07-02] MEDS ORDERED: methylPREDNISolone SOD SUCCI 125 MG/2 ML VIAL IV ONE (11:21)
[2022-07-02] MEDS ORDERED: diphenhydrAMINE 50 MG/ML 1 ML VIAL IVP ONE (11:21)
[2022-07-02] MEDS ORDERED: ACETAMINOPHEN TAB 325 MG TAB PO PRN (11:24)
[2022-07-02] MEDS ORDERED: DEXTROSE 50% SYRINGE 50 ML IVP PRN ×2 (11:31)
--- NOTE | 2022-07-02 11:35 | P.HPIM ---
History of Present Illness H&P Date: 07/02/22 Chief Complaint: abdominl pain Patient is a 82-year-old male with a past medical history of coronary artery disease status post CABG and stenting, chronic systolic heart failure, hypertension, hyperlipidemia, and SVT, insulin-dependent diabetes mellitus and dementia who per ED report presented to the ED with symptoms of chest pain. In the ED patient was found to be in SVT. He was started on amiodarone drip and then referred for admission. Patient however tells me that he came in with abdominal pain. Patient is a poor historian since he has a history of dementia. Patient states that he has lower quadrant abdominal pain that started this morning. Patient states that he had a large satisfactory bowel movement this morning. Patient denies any nausea vomiting. Patient breakfast tray was at his bedside and he ate his entire breakfast. Patient denying any dysuria or urinary frequency. Review of Systems 10 ROS reviewed and are negative except as noted in HPI Past Medical History Past Medical History: Coronary Artery Disease (CAD), Cancer, Diabetes Mellitus, GERD/Reflux, Hyperlipidemia, Hypertension, Memory Impairment, Osteoarthritis (OA ), Pneumonia, Prostate Disorder, Sleep Apnea/CPAP/BIPAP Additional Past Medical History / Comment(s): [place] 08/23/[address]/cardiogenic shock/balloon pump/CHB with temporary pacer/thrombocytopenia. 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, IDDM type II, sepsis History of Any Multi-Drug Resistant Organisms: MRSA Date of last positivie culture/infection: 08/30/18 MDRO Source:: Sputum Past Surgical History: Appendectomy, Back Surgery, Cholecystectomy, Coronary Bypass/CABG, Heart Catheterization, Heart Catheterization With Stent, Hernia Repair, Joint Replacement, Orthopedic Surgery Additional Past Surgical History / Comment(s): 08/23/18 PCI with stent to RCA, cardiac caths, 2008 CABG 3 vessels, inguinal and incisional hernia repairs, triple incisional hernia repair/lysis of adhesions, multiple surgeries for abdominal adhessions, fatty tumors removed posterior neck, ORIF R ankle/R tib fib, total L knee arthroplasty, L rotator cuff repair, bilateral carpal tunnel releases, colonoscopies/bening polyp, EGDs. Past Anesthesia/Blood Transfusion Reactions: No Reported Reaction Date of Last Stent Placement:: 08/23/18 Past Psychological History: Anxiety Smoking Status: Never smoker Past Alcohol Use History: None Reported Past Drug Use History: None Reported - Past Family History Father History Unknown: Yes Family Medical History: Cancer Additional Family Medical History / Comment(s): PROSTATE CANCER Son(s) Family Medical History: Cancer Additional Family Medical History / Comment(s): TESTICULAR CANCER Mother Family Medical History: Coronary Artery Disease (CAD), Hypertension Sister(s) Family Medical History: Cancer Medications and Allergies Home Medications Medication Instructions Recorded Confirmed Type Pravastatin Sodium [Pravachol] 40 mg PO HS@2100 08/03/17 07/02/22 History Multivitamins, Thera [Multivitamin 1 tab PO DAILY@0900 07/04/18 07/02/22 History (formulary)] Acetaminophen Tab [Tylenol] 650 mg PO Q6H PRN 09/14/18 07/02/22 History Nitroglycerin Sl Tabs [Nitrostat] 0.4 mg SUBLINGUAL Q5M PRN #30 tab 11/02/18 07/02/22 Rx Insulin Glargine [Lantus Vial] 60 unit SQ DAILY@0900 12/14/18 07/02/22 History Gabapentin 600 mg PO TID@0900,1600,2100 02/08/19 07/02/22 History Isosorbide Mononitrate ER [Imdur] 15 mg PO QAM 02/08/19 07/02/22 History Cholecalciferol [Vitamin D3 (25 25 mcg PO HS@2100 03/13/21 07/02/22 History Mcg = 1000 Iu)] Clopidogrel [Plavix] 75 mg PO DAILY@0900 03/13/21 07/02/22 History INSULIN ASPART (NovoLOG) [NovoLOG See Protocol SQ ACHS 03/13/21 07/02/22 History (formulary)] Meclizine [Antivert] 25 mg PO TID PRN 03/13/21 07/02/22 History Omeprazole 40 mg PO DAILY@0900 03/13/21 07/02/22 History Zinc 50 mg PO DAILY@0900 03/13/21 07/02/22 History Amiodarone [Cordarone] 100 mg PO DAILY@0900 tab 03/18/21 07/02/22 Rx Furosemide [Lasix] 40 mg PO DAILY tab 03/18/21 07/02/22 Rx Magnesium Oxide [Mag-Ox] 400 mg PO DAILY tab 03/18/21 07/02/22 Rx carvediloL [Coreg] 3.125 mg PO BID-W/MEALS tab 03/18/21 07/02/22 Rx Aspirin EC [Ecotrin Low Dose] 81 mg PO DAILY 07/02/22 07/02/22 History Calcium Carbonate [Tums] 500 mg PO QID PRN 07/02/22 07/02/22 History Docusate [Colace] 100 mg PO BID 07/02/22 07/02/22 History Levothyroxine Sodium [Synthroid] 50 mcg PO DAILY 07/02/22 07/02/22 History Nystatin 100,000Unit/gm Cream 1 applic TOPICAL BID 07/02/22 07/02/22 History [Mycostatin Cream] Sacubitril/Valsartan [Entresto 24 1 tab PO BID 07/02/22 07/02/22 History mg-26 mg Tablet] traMADol HCL [Ultram] 50 mg PO Q6H 07/02/22 07/02/22 History Allergies Allergy/AdvReac Type Severity Reaction Status Date / Time Iodinated Contrast Media Allergy Rash/Hives Verified 07/02/22 04:19 iodine Allergy Rash/Hives Verified 07/02/22 04:19 Penicillins Allergy Swelling Verified 07/02/22 09:28 celecoxib [From Celebrex] AdvReac headache Verified 07/02/22 04:19 duloxetine [From Cymbalta] AdvReac PRICKLY Verified 07/02/22 04:19 FEELING IN HEAD povidone-iodine AdvReac Itchy,red Verified 07/02/22 04:19 [From Betadine] skin soap [From Betadine] AdvReac Itchy,red Verified 07/02/22 04:19 skin Surgical Scrub AdvReac Unknown Itching, Uncoded 07/02/22 04:19 Red skin Physical Exam Osteopathic Statement: *. No significant issues noted on an osteopathic structural exam other than those noted in the History and Physical/Consult. Vitals: Vital Signs Temp Pulse Resp BP Pulse Ox 07/02/22 09:00 62 18 94 L 07/02/22 08:07 62 18 134/64 96 05/05/23 06:30 76 108/56 07/02/22 06:20 75 108/56 07/02/22 06:10 80 108/56 07/02/22 06:00 82 112/58 97 07/02/22 05:50 82 112/58 98 07/02/22 05:41 119/65 07/02/22 05:40 78 84/37 98 07/02/22 05:39 80 16 97 07/02/22 05:30 122 H 97/60 97 07/02/22 05:28 125 H 16 97/60 97 07/02/22 05:20 138 H 97/60 97 07/02/22 05:10 126 H 111/61 98 07/02/22 05:00 130 H 92/56 98 07/02/22 04:50 130 H 96/48 95 07/02/22 04:40 131 H 96/48 95 07/02/22 04:33 133 H 16 96/48 96 07/02/22 04:30 135 H 07/02/22 04:28 134 H 07/02/22 04:16 98.1 F 142 H 22 110/73 98 Intake and Output 07/01/22 07/02/22 07/02/22 22:59 06:59 14:59 Other: Weight 127.006 kg General: [Alert and oriented, well nourished, no acute distress, appears chronically debilitated]. Eye: [PERRL, EOMI, normal conjunctiva]. HENT: [Normocephalic, clear tympanic membranes, normal hearing, moist oral mucosa, no scleral icterus, no sinus tenderness]. Neck: [Supple, non-tender, no carotid bruits, no JVD, no lymphadenopathy]. Lungs: [Clear to auscultation and percussion, non-labored respiration]. Heart: [Normal rate, regular rhythm, no murmur, gallop or edema]. Abdomen: [Soft, non-tender, non-distended, normal bowel sounds, no masses]. Musculoskeletal: [Normal range of motion and strength, no tenderness or swe lling]. Skin: [Skin is warm, dry and pink, no rashes or lesions]. Neurologic: [Awake, alert, and oriented X3, CN II-XII intact]. Psychiatric: [Cooperative, appropriate mood and affect]. Results CBC & Chem 7: 07/02/22 04:36 07/02/22 04:36 Labs: Abnormal Lab Results - Last 24 Hours (Table) 07/02/22 07/02/22 07/02/22 Range/Units 04:36 04:36 08:13 BUN 29 H (9-20) mg/dL Glucose 182 H (74-99) mg/dL Troponin I 0.150 H* 5.050 H* (0.000-0.034) ng/mL Assessment and Plan Assessment: SVT IV amiodarone drip. We'll hold home dose amiodarone Resume Coreg Cardiology on board Non-ST elevation TN History of coronary artery disease status post stenting and CABG Troponin increased from 0.15-5.5. Doubt this would be from type II TN Resume amiodarone drip We'll start heparin drip Check echocardiogram Resume aspirin and Plavix and Imdur and statin Cardiology on board Vague lower quadrant Abdominal pain We'll check a CT abdomen and pelvis with and without contrast Patient denying any UTI symptoms Chronic systolic heart failure Patient euvolemic and compensated Resume Lasix Cardiology holding [employer] Resume cardiac meds Hyperlipidemia Resume statin Hypertension Resume home BP meds Diabetes mellitus We'll start Levemir half his home dose while he is nothing by mouth Sinus scale insulin DVT prophylaxis: Heparin drip
[2022-07-02 11:51] LABS: Glucose,Whole Blood 201 mg/dL (70-110)
[2022-07-02] MEDS: ASPIRIN 81 MG PO SCH (12:14)
[2022-07-02] MEDS: carvediloL 3.125 MG TAB PO SCH ×2 (12:14→16:47)
[2022-07-02] MEDS: FUROSEMIDE 40 MG TAB PO SCH (12:14)
[2022-07-02] MEDS: HEPARIN SOD,PORK IN 0.45% NACL 25,000 UNIT in 0.45% NACL 1 250ML.BAG IV SCH (12:15)
[2022-07-02] MEDS: INSULIN ASPART (NovoLOG) 100 UNIT/ML VIAL SQ SCH ×2 (12:26→16:47)
--- NOTE | 2022-07-02 13:00 | P.CRDCN ---
History of Present Illness History of present illness: HISTORY OF PRESENT ILLNESS: This is a 82-year-old male with a past medical history significant for coronary artery disease with previous CABG (LIMALAD, SVGD1, SVG, OM1 in 2009) with subsequent stenting of the SVG to left circumflex in 2019, congestive heart failure, hypertension, hyperlipidemia, diabetes, hypothyroidism, and ventricular tachycardia. Patient follows in the office with Dr. Villa. We have been asked to see the patient in consultation for chest pain. Patient examined at the bedside. Patient states he presented to the emergency room with a chief complaint of abdominal pain. The patient is somewhat of a poor historian. There is no family present. According to the ER documentation the patient's brought the patient to the hospital for chest pain. He apparently received 3 nitroglycerin with no resolution of his symptoms. The patient currently denies any chest pain or pressure at the time of examination. The patient continues to report significant abdominal pain and has tenderness upon palpation of his abdomen. The patient began having sustained runs of VT in the ER and was started on IV amiodarone. * EKG reveals ventricular tachycardia. Repeat EKG reveals sinus mechanism. Right BBB. * Chest xray cardiomegaly with persistent interstitial prominence which may represent chronic interstitial lung disease or venous congestion. * Laboratory data: W BC 8.3. Hemoglobin 15.2. Platelet count 236. Sodium 142. Potassium 4.5. BUN 29. Creatinine 1.20. Troponin 0.150. 5.050. * Current home cardiac medications include Plavix 75 mg daily, aspirin 81 mg daily, amiodarone 100 mg daily, Lasix 40 mg daily, Imdur 15 mg in the morning, Pravachol 40 mg at night, Entresto 24-26mg BID * Most recent echocardiogram obtained in February 2022 revealing ejection fraction 40-45%, basal inferior and basal inferior septal LV wall hypokinesis, mild aortic regurgitation, mild mitral regurgitation, mild tricuspid regurgitation, and mild pulmonary hypertension * Cardiac catheterization history: 2019 with stenting of the distal anastomosis of SVG to left circumflex REVIEW OF SYSTEMS: At the time of my exam: CONSTITUTIONAL: Denies fever or chills. HEENT: Denies blurred vision, vision changes, or eye pain. Denies hemoptysis CARDIOVASCULAR: Denies chest pain. Denies orthopnea. Denies PND. Denies palpitations RESPIRATORY: Denies shortness of breath. GASTROINTESTINAL: Denies abdominal pain. Denies nausea or vomiting. HEMATOLOGIC: Denies bleeding disorders. GENITOURINARY: Denies any blood in urine. SKIN: Denies pruitis. Denies rash. PHYSICAL EXAM: VITAL SIGNS: Reviewed. GENERAL: Well-developed in no acute distress. HEENT: Head is normocephalic. Pupils are equal, round. Sclerae anicteric. Mucous membranes of the mouth are moist. Neck supple. No JVD or thyromegaly LUNGS: Respirations even and unlabored. Lungs essentially clear to auscultation bilaterally. HEART: Regular rate and rhythm. S1 and S2 heard. ABDOMEN: Soft. Nondistended. Nontender. EXTREMITIES: Normal range of motion. No clubbing or cyanosis. Peripheral pulses intact. No lower extremity edema NEUROLOGIC: Awake and alert. Oriented x 3. ASSESSMENT: Abdominal pain Ventricular tachycardia with elevated troponins Coronary artery disease with previous CABG (LIMALAD, SVGD1, SVG, OM1 in 2008) with subsequent stenting of the SVG to left circumflex in 2018 Ischemic cardiomyopathy, ejection fraction 40-45% Hypertension Hyperlipidemia Diabetes Hypothyroidism History of ventricular tachycardia, on amiodarone outpatient PLAN: Obtain 2D echo to assess cardiac structure and function Resume home cardiac medications Continue IV amio infusion. Transition to oral amio post infusion Continue telemetry monitoring Trend troponins. Troponin elevated may be secondary to ventricular tachycardia VS patient with coronary event leading to ventricular tachycardia. Patient with significant abdominal pain this morning. Recommend CT and further workup. Dr. Pearson recommends further investigation of abdominal pain before proceeding with any further cardiac workup Further recommendations pending patient course Nurse practitioner note has been reviewed by physician. Signing provider agrees with the documented findings, assessment, and plan of care. Past Medical History Past Medical History: Coronary Artery Disease (CAD), Cancer, Diabetes Mellitus, GERD/Reflux, Hyperlipidemia, Hypertension, Memory Impairment, Osteoarthritis (OA), Pneumonia, Prostate Disorder, Sleep Apnea/CPAP/BIPAP Additional Past Medical History / Comment(s): [place] 08/23/[address]/cardiogenic shock/balloon pump/CHB with temporary pacer/thrombocytopenia. 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, IDDM type II, sepsis History of Any Multi-Drug Resistant Organisms: MRSA Date of last positivie culture/infection: 08/30/18 MDRO Source:: Sputum Past Surgical History: Appendectomy, Back Surgery, Cholecystectomy, Coronary Bypass/CABG, Heart Catheterization, Heart Catheterization With Stent, Hernia Repair, Joint Replacement, Orthopedic Surgery Additional Past Surgical History / Comment(s): 08/23/18 PCI with stent to RCA, cardiac caths, 2008 CABG 3 vessels, inguinal and incisional hernia repairs, triple incisional hernia repair/lysis of adhesions, multiple surgeries for abdominal adhessions, fatty tumors removed posterior neck, ORIF R ankle/R tib fib, total L knee arthroplasty, L rotator cuff repair, bilateral carpal tunnel releases, colonoscopies/bening polyp, EGDs. Past Anesthesia/Blood Transfusion Reactions: No Reported Reaction Date of Last Stent Placement:: 08/23/18 Past Psychological History: Anxiety Smoking Status: Never smoker Past Alcohol Use History: None Reported Past Drug Use History: None Reported - Past Family History Father History Unknown: Yes Family Medical History: Cancer Additional Family Medical History / Comment(s): PROSTATE CANCER Son(s) Family Medical History: Cancer Additional Family Medical History / Comment(s): TESTICULAR CANCER Mother Family Medical History: Coronary Artery Disease (CAD), Hypertension Sister(s) Family Medical History: Cancer Medications and Allergies Home Medications Medication Instructions Recorded Confirmed Type Pravastatin Sodium [Pravachol] 40 mg PO HS@2100 08/03/17 07/02/22 History Multivitamins, Thera [Multivitamin 1 tab PO DAILY@0900 07/04/18 07/02/22 History (formulary)] Acetaminophen Tab [Tylenol] 650 mg PO Q6H PRN 09/14/18 07/02/22 History Nitroglycerin Sl Tabs [Nitrostat] 0.4 mg SUBLINGUAL Q5M PRN #30 tab 11/02/18 07/02/22 Rx Insulin Glargine [Lantus Vial] 60 unit SQ DAILY@0900 12/14/18 07/02/22 History Gabapentin 600 mg PO TID@0900,1600,2100 02/08/19 07/02/22 History Isosorbide Mononitrate ER [Imdur] 15 mg PO QAM 02/08/19 07/02/22 History Cholecalciferol [Vitamin D3 (25 25 mcg PO HS@2100 03/13/21 07/02/22 History Mcg = 1000 Iu)] Clopidogrel [Plavix] 75 mg PO DAILY@0900 03/13/21 07/02/22 History INSULIN ASPART (NovoLOG) [NovoLOG See Protocol SQ ACHS 03/13/21 07/02/22 History (formulary)] Meclizine [Antivert] 25 mg PO TID PRN 03/13/21 07/02/22 History Omeprazole 40 mg PO DAILY@0900 03/13/21 07/02/22 History Zinc 50 mg PO DAILY@0900 03/13/21 07/02/22 History Amiodarone [Cordarone] 100 mg PO DAILY@0900 tab 03/18/21 07/02/22 Rx Furosemide [Lasix] 40 mg PO DAILY tab 03/18/21 07/02/22 Rx Magnesium Oxide [Mag-Ox] 400 mg PO DAILY tab 03/18/21 07/02/22 Rx carvediloL [Coreg] 3.125 mg PO BID-W/MEALS tab 03/18/21 07/02/22 Rx Aspirin EC [Ecotrin Low Dose] 81 mg PO DAILY 07/02/22 07/02/22 History Calcium Carbonate [Tums] 500 mg PO QID PRN 07/02/22 07/02/22 History Docusate [Colace] 100 mg PO BID 07/02/22 07/02/22 History Levothyroxine Sodium [Synthroid] 50 mcg PO DAILY 07/02/22 07/02/22 History Nystatin 100,000Unit/gm Cream 1 applic TOPICAL BID 07/02/22 07/02/22 History [Mycostatin Cream] Sacubitril/Valsartan [Entresto 24 1 tab PO BID 07/02/22 07/02/22 History mg-26 mg Tablet] traMADol HCL [Ultram] 50 mg PO Q6H 07/02/22 07/02/22 History Allergies Allergy/AdvReac Type Severity Reaction Status Date / Time Iodinated Contrast Media Allergy Rash/Hives Verified 07/02/22 04:19 iodine Allergy Rash/Hives Verified 07/02/22 04:19 Penicillins Allergy Swelling Verified 07/02/22 09:28 celecoxib [From Celebrex] AdvReac headache Verified 07/02/22 04:19 duloxetine [From Cymbalta] AdvReac PRICKLY Verified 07/02/22 04:19 FEELING IN HEAD povidone-iodine AdvReac Itchy,red Verified 07/02/22 04:19 [From Betadine] skin soap [From Betadine] AdvReac Itchy,red Verified 07/02/22 04:19 skin Surgical Scrub AdvReac Unknown Itching, Uncoded 07/02/22 04:19 Red skin Physical Exam Vitals: Vital Signs Temp Pulse Resp BP Pulse Ox 07/02/22 09:00 62 18 94 L 07/02/22 08:07 62 18 134/64 96 07/02/22 06:30 76 108/56 07/02/22 06:20 75 108/56 07/02/22 06:10 80 108/56 07/02/22 06:00 82 112/58 97 07/02/22 05:50 82 112/58 98 07/02/22 05:41 119/65 07/02/22 05:40 78 84/37 98 07/02/22 05:39 80 16 97 07/02/22 05:30 122 H 97/60 97 07/02/22 05:28 125 H 16 97/60 97 07/02/22 05:20 138 H 97/60 97 07/02/22 05:10 126 H 111/61 98 07/02/22 05:00 130 H 92/56 98 07/02/22 04:50 130 H 96/48 95 07/02/22 04:40 131 H 96/48 95 07/02/22 04:33 133 H 16 96/48 96 07/02/22 04:30 135 H 07/02/22 04:28 134 H 07/02/22 04:16 98.1 F 142 H 22 110/73 98 Intake and Output 07/01/22 07/02/22 07/02/22 22:59 06:59 14:59 Other: Weight 127.006 kg Results 07/02/22 04:36 07/02/22 04:36 Cardiac Enzymes 07/02/22 07/02/22 07/02/22 Range/Units 04:36 04:36 08:13 AST 28 (17-59) U/L Troponin I 0.150 H* 5.050 H* (0.000-0.034) ng/mL Coagulation 07/02/22 Range/Units 04:36 PT 9.5 (9.0-12.0) sec APTT 24.1 (22.0-30.0) sec CBC 07/02/22 Range/Units 04:36 WBC 8.3 (3.8-10.6) k/uL RBC 5.13 (4.30-5.90) m/uL Hgb 15.2 (13.0-17.5) gm/dL Hct 47.2 (39.0-53.0) % Plt Count 236 (150-450) k/uL Comprehensive Metabolic Panel 07/02/22 Range/Units 04:36 Sodium 142 (137-145) mmol/L Potassium 4.5 (3.5-5.1) mmol/L Chloride 103 (98-107) mmol/L Carbon Dioxide 27 (22-30) mmol/L BUN 29 H (9-20) mg/dL Creatinine 1.20 (0.66-1.25) mg/dL Glucose 182 H (74-99) mg/dL Calcium 9.6 (8.4-10.2) mg/dL AST 28 (17-59) U/L ALT 20 (4-49) U/L Alkaline Phosphatase 78 (38-126) U/L Total Protein 7.6 (6.3-8.2) g/dL Albumin 4.5 (3.5-5.0) g/dL Current Medications Generic Name Dose Route Start Last Admin Trade Name Freq PRN Reason Stop Dose Admin Amiodarone HCl 360 mg/ 200 mls @ 33.333 mls/hr 07/02/22 05:15 07/02/22 05:38 Dextrose/Water IV 07/02/22 11:14 1 mg/min .Q6H ONE 33.333 mls/hr Administration Protocol 1 MG/MIN Amiodarone HCl 450 mg/ 250 mls @ 16.667 mls/hr 07/02/22 11:15 Dextrose/Water IV 07/03/22 05:14 .Q15H AALIYAH Protocol 0.5 MG/MIN Sodium Chloride 1,000 mls @ 20 mls/hr 07/02/22 06:45 07/02/22 06:46 Saline 0.9% IV 20 mls/hr .Q24H AALIYAH Administration Naloxone HCl 0.2 mg 07/02/22 06:33 Naloxone 0.4 Mg/Ml 1 Ml Vial IV Q2M PRN Opioid Reversal Intake and Output 07/01/22 07/02/22 07/02/22 22:59 06:59 14:59 Other: Weight 127.006 kg 07/02/22 04:36 07/02/22 04:36
--- NOTE | 2022-07-02 13:13 | CT ---
EXAMINATION TYPE: CT abdomen pelvis w con DATE OF EXAM: 07/02/2022 COMPARISON: 09/14/2018 HISTORY: 82-year-old male abdominal pain TECHNIQUE: Contiguous axial scanning of the abdomen and pelvis following administration of 100 ml Iso alexia 300 IV contrast. Delayed images through the kidneys and coronal/sagittal reconstructions perform ed. CT DLP: 1806.4 mGycm Automated exposure control for dose reduction was used. FINDINGS: Median sternotomy wires are present. Moderate bilateral gynecomastia partially seen. Strand y atelectasis of the lung bases. Heart mildly enlarged with coronary artery calcifications. No focal liver lesion or biliary ductal dilatation. Portal venous system is patent. Adrenal glands, spleen, and atrophic pancreas show no gross abnormality. Scattered bilateral renal cortical cysts measuring up to 2.6 cm. Gallbladder surgically absent. There appears to be a moderate focal stenosis of the origin of the celiac axis. No dilated small bowel, free fluid, or free air. No mesenteric or retroperitoneal lymphadenopathy. Mild to moderate stool. Mid sigmoid diverticulosis. No pericolonic inflammatory change. Postsurgical change along the ventral abdominal wall. Focal subcutaneous soft tissue thickening at and just deep to the skin surface anterior right lower q uadrant is unchanged, probably chronic scarring. Clinically correlate. Moderate atherosclerotic calcifications infrarenal abdominal aorta and common/internal iliac arteries . Bladder is urine distended. Prostate gland measures 4.8 cm wide. This is somewhat higher density, pos sibly enhancing nodule left lateral margin of the prostate gland measuring 8 mm. No abnormal fluid collection the pelvis or pelvic lymphadenopathy. As compared to 2019, there has been progressive laxity in the lower anterior abdominal wall with furt her anterior inferior bulging over the pubic symphysis. Previous laminectomy from L3 through L5 levels. Mature interbody ankylosis across L4-L5. Moderate to advanced spondylotic changes elsewhere in the visualized spine. IMPRESSION: 1. MID SIGMOID DIVERTICULOSIS WITHOUT ACUTE DIVERTICULITIS. 2. COMPARED TO 2019, PROGRESSIVE LAXITY IN THE LOWER ANTERIOR ABDOMINAL WALL WITH FURTHER ANTERIOR AND INFERIOR BULGING OVER THE PUBIC SYMPHYSIS. 3. MILD PROSTATOMEGALY AT 4.8 CM WIDE. EITHER SOME FAINT CALCIFICATIONS VERSUS AN ENHANCING 8 MM NODU LE ALONG THE LEFT LATERAL MARGIN OF THE GLAND. CORRELATE WITH PSA VALUES TO EXCLUDE A SMALL FOCUS OF PROSTATE CANCER.
[2022-07-02 16:42] LABS: Glucose,Whole Blood 248 mg/dL (70-110)
[2022-07-02] MEDS: GABAPENTIN 300 MG CAP PO SCH ×2 (16:47→19:41)
[2022-07-02] MEDS: traMADol 50 MG TAB PO PRN (16:47)
[2022-07-02] MEDS: INSULIN DETEMIR (LEVEMIR) 100 UNIT/ML SYR SQ SCH (20:41)
[2022-07-02 20:59] LABS: Glucose,Whole Blood 275 mg/dL (70-110)
[2022-07-02] MEDS ORDERED: PRAVASTATIN SODIUM 40 MG TAB PO SCH (21:00)
[2022-07-02] MEDS: NITROGLYCERIN OINT 1 INCH/GM PACKET TOPICAL SCH (23:31)
[2022-07-03] MEDS: AMIODARONE 450 MG in DEXTROSE 5% IN WATER 250 ML IV SCH ×2 (04:01)
[2022-07-03] MEDS: HEPARIN SOD,PORK IN 0.45% NACL 25,000 UNIT in 0.45% NACL 1 250ML.BAG IV SCH (05:10)
[2022-07-03 05:52] LABS: Basophils % (A) 0 %; Eosinophils % (A) 0 %; HGB 13.4 gm/dL (13.0-17.5); Lymphocytes # (A) 1.7 k/uL (1.0-4.8); Lymphocytes % (A) 13 %; MCH 29.4 pg (25.0-35.0); MCHC 32.7 g/dL (31.0-37.0); MCV 89.9 fL (80.0-100.0); Mean Platelet Volume 9.5; Monocytes # (A) 0.6 k/uL (0-1.0); Monocytes % (A) 5 %; Neutrophils # (A) 10.8 k/uL (1.3-7.7); Neutrophils % (A) 81 %; Platelet Count 211 k/uL (150-450); RBC 4.56 m/uL (4.30-5.90); WBC 13.3 k/uL (3.8-10.6)
[2022-07-03 06:04] LABS: Calcium 9.3 mg/dL (8.4-10.2); Magnesium 1.9 mg/dL (1.6-2.3); Potassium 4.4 mmol/L (3.5-5.1)
[2022-07-03 06:29] LABS: Glucose,Whole Blood 203 mg/dL (70-110)
[2022-07-03] MEDS: carvediloL 3.125 MG TAB PO SCH (06:32)
[2022-07-03] MEDS: LEVOTHYROXINE 50 MCG TAB PO SCH (06:32)
[2022-07-03] MEDS: NITROGLYCERIN OINT 1 INCH/GM PACKET TOPICAL SCH ×2 (06:32→13:12)
[2022-07-03] MEDS: INSULIN ASPART (NovoLOG) 100 UNIT/ML VIAL SQ SCH ×3 (06:32→17:23)
[2022-07-03] MEDS ORDERED: HEPARIN SODIUM,PORCINE 2,500 UNIT in SODIUM CHLORIDE 0.9% 250 ML IRRIGATION PRN (07:00)
[2022-07-03] MEDS ORDERED: HEPARIN SODIUM,PORCINE 10,000 UNIT in SODIUM CHLORIDE 0.9% 1,000 ML IRRIGATION PRN (07:00)
[2022-07-03] MEDS: SACUBITRIL/VALSARTAN 24 MG-26 MG TABLET PO SCH ×2 (08:24→20:20)
[2022-07-03] MEDS: SODIUM CHLORIDE 0.9% 1,000 ML IV SCH (08:24)
[2022-07-03] MEDS: MAGNESIUM OXIDE 400 MG TAB PO SCH (08:26)
[2022-07-03] MEDS: PANTOPRAZOLE 40 MG TABLET PO SCH (08:26)
[2022-07-03] MEDS: ASPIRIN 81 MG PO SCH (08:26)
[2022-07-03] MEDS: FUROSEMIDE 40 MG TAB PO SCH (08:26)
[2022-07-03] MEDS: CLOPIDOGREL 75 MG TAB PO SCH (08:26)
[2022-07-03] MEDS: GABAPENTIN 300 MG CAP PO SCH ×3 (08:26→20:20)
[2022-07-03] MEDS ORDERED: AMIODARONE 200 MG TAB PO SCH (09:00)
[2022-07-03] MEDS ORDERED: ALPRAZolam 0.25 MG TAB PO PRN (09:54)
[2022-07-03] MEDS ORDERED: NITROGLYCERIN SL TABS 0.4 MG TAB SUBLINGUAL PRN ×2 (09:54→14:39)
[2022-07-03] MEDS ORDERED: ASPIRIN 325 MG TAB PO STA (09:54)
[2022-07-03] MEDS ORDERED: ATORVASTATIN 80 MG TAB PO STA (09:54)
[2022-07-03] MEDS ORDERED: VERAPAMIL 2.5 MG/ML 2 ML AMP ONE (10:56)
--- NOTE | 2022-07-03 11:21 | P.PN ---
Subjective Progress Note Date: 07/03/22 HISTORY OF PRESENT ILLNESS: This is a 82-year-old male with a past medical history significant for coronary artery disease with previous CABG (LIMALAD, SVGD1, SVG, OM1 in 2009) with subsequent stenting of the SVG to left circumflex in 2019, congestive heart failure, hypertension, hyperlipidemia, diabetes, hypothyroidism, and ventricular tachycardia. Patient follows in the office with Dr. Villa. We have been asked to see the patient in consultation for chest pain. Patient examined at the bedside. Patient states he presented to the emergency room with a chief complaint of abdominal pain. The patient is somewhat of a poor historian. There is no family present. According to the ER documentation the patient's brought the patient to the hospital for chest pain. He apparently received 3 nitroglycerin with no resolution of his symptoms. The patient currently den ies any chest pain or pressure at the time of examination. The patient continues to report significant abdominal pain and has tenderness upon palpation of his abdomen. The patient began having sustained runs of VT in the ER and was started on IV amiodarone. * EKG reveals ventricular tachycardia. Repeat EKG reveals sinus mechanism. Right BBB. * Chest xray cardiomegaly with persistent interstitial prominence which may represent chronic interstitial lung disease or venous congestion. * Laboratory data: W BC 8.3. Hemoglobin 15.2. Platelet count 236. Sodium 142. Potassium 4.5. BUN 29. Creatinine 1.20. Troponin 0.150. 5.050. * Current home cardiac medications include Plavix 75 mg daily, aspirin 81 mg daily, amiodarone 100 mg daily, Lasix 40 mg daily, Imdur 15 mg in the morning, Pravachol 40 mg at night, Entresto 24-26mg BID * Most recent echocardiogram obtained in February 2022 revealing ejection fraction 40-45%, basal inferior and basal inferior septal LV wall hypokinesis, mild aortic regurgitation, mild mitral regurgitation, mild tricuspid regurgitation, and mild pulmonary hypertension * Cardiac catheterization history: 2019 with stenting of the distal anastomosis of SVG to left circumflex 07/03/2022 Patient examined this morning at the bedside. Patient's mentation is improved compared to yesterday. He continues to deny any chest pain or pressure. He continues to report abdominal pain. He remains on IV heparin. He has been transitioned over to oral amiodarone. Blood pressures are elevated this morning with a systolic in the [id number]. CT abdomen and pelvis reveals mid sigmoid diverticulosis without acute diverticulitis. PHYSICAL EXAM: VITAL SIGNS: Reviewed. GENERAL: Well-developed in no acute distress. HEENT: Head is normocephalic. Pupils are equal, round. Sclerae anicteric. Mucous membranes of the mouth are moist. Neck supple. No JVD or thyromegaly LUNGS: Respirations even and unlabored. Lungs essentially clear to auscultation bilaterally. HEART: Regular rate and rhythm. S1 and S2 heard. ABDOMEN: Soft. Nondistended. Nontender. EXTREMITIES: Normal range of motion. No clubbing or cyanosis. Peripheral pulses intact. No lower extremity edema NEUROLOGIC: Awake and alert. Oriented x 3. ASSESSMENT: Abdominal pain Ventricular tachycardia Non-STEMI Coronary artery disease with previous CABG (LIMALAD, SVGD1, SVG, OM1 in 2008) with subsequent stenting of the SVG to left circumflex in 2018 Ischemic cardiomyopathy, ejection fraction 40-45% Hypertension Hyperlipidemia Diabetes Hypothyroidism History of ventricular tachycardia, on amiodarone outpatient PLAN: 2-D echo ordered. Await results Continue current cardiac medications Continue telemetry monitoring. Continue oral amiodarone Continue IV heparin Resume Entresto. Continue to monitor blood pressures. Patient to undergo cardiac catheterization today with Dr. Jang Further recommendations pending patient course Nurse practitioner note has been reviewed by physician. Signing provider agrees with the documented findings, assessment, and plan of care. Objective - Vital Signs Vital signs: Vital Signs Temp 97.4 F L 07/03/22 08:20 Pulse 76 07/03/22 08:20 Resp 16 07/03/22 08:20 BP 163/77 07/03/22 08:20 Pulse Ox 97 07/03/22 08:20 FiO2 Intake & Output 07/02/22 07/03/22 07/03/22 18:59 06:59 18:59 Intake Total 1164.715 Output Total 300 600 Balance -300 564.715 Weight 127.006 kg Intake: Intake, IV Titration 194.715 Amount Heparin Sod,Pork in 0.45% 194.715 NaCl 25,000 unit In 0.45 % NaCl 1 250ml.bag @ 7.8 UNITS/KG/HR 9.906 mls/hr IV .Q24H [facility] Rx#: [id number] Oral 970 Output: Urine 300 600 Other: Voiding Method Urinal # Voids 2 500 - Labs CBC & Chem 7: 07/03/22 05:17 07/03/22 05:17 Labs: Abnormal Lab Results - Last 24 Hours (Table) 07/02/22 07/02/22 07/02/22 Range/Units 11:49 16:41 20:58 WBC (3.8-10.6) k/uL Neutrophils # (1.3-7.7) k/uL APTT (22.0-30.0) sec BUN (9-20) mg/dL Glucose (74-99) mg/dL POC Glucose (mg/dL) 201 H 248 H 275 H (70-110) mg/dL Hemoglobin A1c (0.0-6.0) % Troponin I (0.000-0.034) ng/mL 07/02/22 07/02/22 07/03/22 Range/Units 21:24 21:24 05:17 WBC (3.8-10.6) k/uL Neutrophils # (1.3-7.7) k/uL APTT 38.0 H (22.0-30.0) sec BUN (9-20) mg/dL Glucose (74-99) mg/dL POC Glucose (mg/dL) (70-110) mg/dL Hemoglobin A1c 8.5 H (0.0-6.0) % Troponin I 8.800 H* (0.000-0.034) ng/mL 07/03/22 07/03/22 07/03/22 Range/Units 05:17 05:17 05:17 WBC 13.3 H (3.8-10.6) k/uL Neutrophils # 10.8 H (1.3-7.7) k/uL APTT 59.7 H (22.0-30.0) sec BUN 28 H (9-20) mg/dL Glucose 204 H (74-99) mg/dL POC Glucose (mg/dL) (70-110) mg/dL Hemoglobin A1c (0.0-6.0) % Troponin I (0.000-0.034) ng/mL 07/03/22 Range/Units 06:27 WBC (3.8-10.6) k/uL Neutrophils # (1.3-7.7) k/uL APTT (22.0-30.0) sec BUN (9-20) mg/dL Glucose (74-99) mg/dL POC Glucose (mg/dL) 203 H (70-110) mg/dL Hemoglobin A1c (0.0-6.0) % Troponin I (0.000-0.034) ng/mL
[2022-07-03] MEDS: traMADol 50 MG TAB PO PRN ×2 (11:26→19:14)
[2022-07-03] MEDS ORDERED: methylPREDNISolone SOD SUCCI 125 MG/2 ML VIAL IV STA (12:35)
[2022-07-03] MEDS ORDERED: diphenhydrAMINE 50 MG/ML 1 ML VIAL IVP PRN (12:35)
[2022-07-03] MEDS ORDERED: FAMOTIDINE 20 MG/2 ML VIAL IV STA (12:35)
--- NOTE | 2022-07-03 12:42 | P.PN ---
Subjective Progress Note Date: 07/03/22 Patient states that his abdominal pain is completely resolved. He is also denying any chest pain. Objective - Vital Signs Vital signs: Vital Signs Temp 97.4 F L 07/03/22 08:20 Pulse 76 07/03/22 08:20 Resp 16 07/03/22 08:20 BP 163/77 07/03/22 08:20 Pulse Ox 94 L 07/03/22 11:25 FiO2 Intake & Output 07/02/22 07/03/22 07/03/22 18:59 06:59 18:59 Intake Total 1164.715 Output Total 300 600 Balance -300 564.715 Weight 127.006 kg Intake: Intake, IV Titration 194.715 Amount Heparin Sod,Pork in 0.45% 194.715 NaCl 25,000 unit In 0.45 % NaCl 1 250ml.bag @ 7.8 UNITS/KG/HR 9.906 mls/hr IV .Q24H [facility] Rx#: [id number] Oral 970 Output: Urine 300 600 Other: Voiding Method Urinal Urinal # Voids 2 500 - Exam General examination - Alert and Oriented 3 in NAD Heart - + S1S2 no murmurs Lungs - Clear to auscultation Abdomen soft NT ND +ve BS Extremities - No edema 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 - Moving all 4 extremities spontaneously Psych - Calm and cooperative - Labs CBC & Chem 7: 07/03/22 05:17 07/03/22 05:17 Labs: Abnormal Lab Results - Last 24 Hours (Table) 07/02/22 07/02/22 07/02/22 Range/Units 16:41 20:58 21:24 WBC (3.8-10.6) k/uL Neutrophils # (1.3-7.7) k/uL APTT 38.0 H (22.0-30.0) sec BUN (9-20) mg/dL Glucose (74-99) mg/dL POC Glucose (mg/dL) 248 H 275 H (70-110) mg/dL Hemoglobin A1c (0.0-6.0) % Troponin I (0.000-0.034) ng/mL 07/02/22 07/03/22 07/03/22 Range/Units 21:24 05:17 05:17 WBC 13.3 H (3.8-10.6) k/uL Neutrophils # 10.8 H (1.3-7.7) k/uL APTT (22.0-30.0) sec BUN (9-20) mg/dL Glucose (74-99) mg/dL POC Glucose (mg/dL) (70-110) mg/dL Hemoglobin A1c 8.5 H (0.0-6.0) % Troponin I 8.800 H* (0.000-0.034) ng/mL 07/03/22 07/03/22 07/03/22 Range/Units 05:17 05:17 06:27 WBC (3.8-10.6) k/uL Neutrophils # (1.3-7.7) k/uL APTT 59.7 H (22.0-30.0) sec BUN 28 H (9-20) mg/dL Glucose 204 H (74-99) mg/dL POC Glucose (mg/dL) 203 H (70-110) mg/dL Hemoglobin A1c (0.0-6.0) % Troponin I (0.000-0.034) ng/mL Assessment and Plan Assessment: SVT IV amiodarone drip. We'll hold home dose amiodarone Resume Coreg Cardiology on board Non-ST elevation [place] History of coronary artery disease status post stenting and CABG Troponin increased from 0.15 to 5.5 to 8.8. Doubt this would be from type II [place] Resume heparin drip Check echocardiogram Resume aspirin and Plavix and Imdur and statin I discussed with cardiology and plan is for heart cath today Vague lower quadrant Abdominal pain: Resolved CT abdomen and pelvis was unremarkable and just showed increased laxity in the lower abdomen Patient denying any UTI symptoms Chronic systolic heart failure Patient euvolemic and compensated Resume Lasix Resume Entrusto Resume cardiac meds Hyperlipidemia Resume statin Hypertension Resume home BP meds Diabetes mellitus We'll start Levemir half his home dose while he is nothing by mouth Sinus scale insulin DVT prophylaxis: Heparin drip
[2022-07-03] MEDS ORDERED: diphenhydrAMINE 50 MG/ML 1 ML VIAL IVP STA (12:48)
--- NOTE | 2022-07-03 13:10 | CA ---
Transthoracic Echo Report Name: Tucker Vega Age: 82 Gender: M : 1940 Exam Date: 07/02/2022 18:08 Exam Location: [facility] Ht (in): 67 Wt (lb): 280 Ordering Physician: Paul Herrera MD Attending/Referring Phys: Scraper Tender Jennifer Guzman RDCS Procedure CPT: Indications: nstemi Cardiac Hx: Technical Quality: Technically difficult study Contrast 1: Total Dose (mL): Contrast 2: Total Dose (mL): MEASUREMENTS (Male / Female) Normal Values 2D ECHO LV Diastolic Diameter PLAX 5.7 cm 4.2 - 5.9 / 3.9 - 5.3 cm LV Systolic Diameter PLAX 5.1 cm IVS Diastolic Thickness 1.2 cm 0.6 - 1.0 / 0.6 - 0.9 cm LVPW Diastolic Thickness 1.3 cm 0.6 - 1.0 / 0.6 - 0.9 cm LV Relative Wall Thickness 0.4 RV Internal Dim ED PLAX 3.1 cm LVOT Diameter 2.2 cm LA Systolic Diameter LX 4.0 cm 3.0 - 4.0 / 2.7 - 3.8 cm LA Volume 81.9 cm??? 18 - 58 / 22 - 52 cm??? M-MODE Aortic Root Diameter MM 4.0 cm MV E Point Septal Separation 2.2 cm AV Cusp Separation MM 2.1 cm DOPPLER AV Peak Velocity 132.7 cm/s AV Peak Gradient 7.0 mmHg AI Peak Velocity 362.7 cm/s AI Peak Gradient 52.6 mmHg AI Pressure Half Time 771.8 ms LVOT Peak Velocity 86.8 cm/s LVOT Peak Gradient 3.0 mmHg AV Area Cont Eq pk 2.5 cm??? MV Area PHT 2.9 cm??? Mitral E Point Velocity 79.8 cm/s Mitral A Point Velocity 118.1 cm/s Mitral E to A Ratio 0.7 MV Deceleration Time 261.9 ms MV E' Velocity 2.8 cm/s Mitral E to MV E' Ratio 28.5 FINDINGS Left Ventricle Left ventricular ejection fraction is estimated at 40-45 %. Left ventricular cavity size normal. Mildly increased septal wall thickness. Left ventricle size upper size of normal. Inferior apical and inferior septal hypokinesis Right Ventricle Normal right ventricular size and function. Right Atrium Right atrium not well visualized. Left Atrium Severely increased left atrial volume. Mildly increased left atrial area. Mitral Valve Structurally normal mitral valve. Mitral annular calcification. Mild to moderate mitral regurgitation. Aortic Valve Aortic valve sclerosis. Mild to Moderate aortic regurgitation. No aortic stenosis. Tricuspid Valve Tricuspid valve not well visualized. Pulmonic Valve Pulmonic valve not well visualized. No pulmonic regurgitation. Pericardium Normal pericardium. No pericardial effusion. Aorta Moderate aortic dilatation at the level of the sinuses of valsalva 40 mm CONCLUSIONS Technically difficult study. Moderately impaired left ventricle systolic function with segmental wall motion abnormality Mild to moderate mitral and aortic regurgitation Previewed by: Dr. Iggy Jang MD (Electronically Signed) Final Date: 03 Jul 2022 13:10
[2022-07-03] MEDS ORDERED: LIDOCAINE 1% INJ 10MG/ML (20 ML MDV) ONE (13:19)
[2022-07-03] MEDS ORDERED: fentaNYL (PF) 50 MCG/ML 2 ML AMP ONE (13:25)
[2022-07-03] MEDS ORDERED: fentaNYL (PF) 50 MCG/1 ML VIAL IVP ONE (13:39)
[2022-07-03] MEDS ORDERED: LIDOCAINE 1% INJ 10MG/ML (20 ML MDV) SQ ONE (13:42)
[2022-07-03] MEDS ORDERED: IV FLUID CONTINUATION 1,000 ML IV ONE (13:44)
[2022-07-03] MEDS ORDERED: MIDAZOLAM 2 MG/2 ML VIAL IVP ONE (13:44)
[2022-07-03] MEDS ORDERED: HEPARIN SODIUM 1,000 UN/ML (10ML VL) IV ONE (13:58)
[2022-07-03] MEDS ORDERED: HEPARIN SODIUM 1,000 UN/ML (10ML VL) ONE (14:05)
[2022-07-03] MEDS ORDERED: MAG HYDROX/AL HYDROX/SIMETH 30 ML CUP PO PRN (14:39)
[2022-07-03] MEDS ORDERED: RX INFO: IV CONTRAST WAS GIVEN 1 EACH MISC MISCELLANE PRN (14:39)
[2022-07-03] MEDS ORDERED: ATROPINE SULFATE 0.1 MG/ML 10ML SYRINGE IV PRN (14:39)
[2022-07-03] MEDS ORDERED: ZOLPIDEM 5 MG TAB PO PRN (14:39)
[2022-07-03] MEDS ORDERED: IOPAMIDOL-370 200ML BTL INJ ONE (14:41)
[2022-07-03] MEDS ORDERED: SODIUM CHLORIDE 0.9% 1,000 ML in EMPTY BAG 1 BAG IV SCH (14:45)
--- NOTE | 2022-07-03 14:53 | P.CARDCATH ---
Date of Procedure: 07/03/22 Description of Procedure: Cardiac Catheterization: The patient is an 82-year-old male with a known history of CAD status post CABG and PCI who presented with VT and non-STEMI. Recommendations were made regarding cardiac catheterization, the risks and the complications were discussed with the patient who is in full understanding and agreement. Procedure Description: Patient was brought to quality lab technician in fasting semi-sedated state after receiving Fentanyl and Benadryl achieiving moderate conscious sedated state. Using Xylocaine Anesthesia and Seldinger technique, using a micropuncture the right femoral artery was cannulated and subsequently changed to a 6-Montenegrin sheath was introduced in the left femoral artery . Subsequently, selective coronary angiography was performed using a 6-Montenegrin 4 bend Prudencio catheter. Multiple views of the coronary artery including hemiaxial views were obtained. The right Prudencio was used to cannulate the SVG to the OM and GAVIRIA to the LAD, images of the graft were obtained. The 6-Montenegrin pigtail catheter was used to cross the aortic valve and LVEDP was calculated. PCI: After removing the catheters a 6-Montenegrin LCB guiding catheter was introduced and the ostium of the graft was cannulated. Subsequently a 0.014 BMW J-wire was positioned distally. A guide liner catheter was advanced and a 2.5 x 12 mm Treck was advanced and 2 inflations at 8 annita were done, after removing the balloon 3.0 x 23 mm Xience candace point stent was deployed at 16 annita, after removing the balloon 3.0 x 15 mm NC Treck balloon was advanced into inflation at 10 annita were done. After removing the wire images were obtained and revealed stable successful stenting. Following that, catheter and sheath were removed. Hemostasis was obtained with deployment of Angio-Seal . There was no immediate complication. Patient was returned to room in stable condition. Of note, the patient received a total of 6000 units of intravenous heparin, his ACT was monitored. He was continued on clopidogrel. He had no significant chest pain or EKG changes with the inflations. Findings: Left main: This vessel is totally occluded proximally with no antegrade flow LAD: There is no antegrade flow Left circumflex: There is no antegrade flow RCA: This is a dominant vessel, bifurcating into PDA and PLV, the RCA has mild intimal disease throughout its course of 20-30%, the PDA and the PLV are small in caliber. GAVIRIA to the LAD: The distal anastomotic site is patent, the flow to the LAD is brisk SVG to the OM: The proximal and distal anastomotic sites are patent at the distal anastomotic site there is a 90% stenosis, the flow into the OM is brisk. Left Ventriculogram: Not performed Hemodynamics: There was no gradient across the aortic valve , LVEDP was 12-16 mmHg Conclusion: 1. Chronically occluded left main with no antegrade flow 2. Mild diffuse disease in the RCA 3. Patent GAVIRIA to the LAD 4. Patent SVG to the OM with severe stenosis at the distal anastomotic site 5. Successful stenting of the distal anastomotic site of the SVG to the OM with reduction of stenosis from 90% to less than 5% Recommendations: The patient will continue on aspirin and clopidogrel for 1 year without any interruption in addition to aggressive treatment. The findings and the recommendations were discussed with the patient and the family and they were in full understanding and agreement. Duration of sedation is 49 minutes.
[2022-07-03] MEDS: ALPRAZolam 0.5 MG TAB PO PRN ×2 (15:02→22:34)
[2022-07-03] MEDS: ISOSORBIDE MONONITRATE ER 30 MG TAB.ER.24H PO SCH (17:09)
[2022-07-03] MEDS: carvediloL 6.25 MG TAB PO SCH (17:09)
[2022-07-03] MEDS: SPIRONOLACTONE 25 MG TAB PO SCH (17:09)
[2022-07-03 17:16] LABS: Glucose,Whole Blood 238 mg/dL (70-110)
[2022-07-03 20:17] LABS: Glucose,Whole Blood 382 mg/dL (70-110)
[2022-07-03] MEDS: AMIODARONE 200 MG TAB PO SCH (20:20)
[2022-07-03] MEDS: INSULIN DETEMIR (LEVEMIR) 100 UNIT/ML SYR SQ SCH (20:20)
[2022-07-04 05:55] LABS: Basophils % (A) 0 %; Eosinophils % (A) 0 %; HCT 38.1 % (39.0-53.0); HGB 12.7 gm/dL (13.0-17.5); Lymphocytes # (A) 1.3 k/uL (1.0-4.8); Lymphocytes % (A) 11 %; MCH 29.8 pg (25.0-35.0); MCHC 33.3 g/dL (31.0-37.0); MCV 89.7 fL (80.0-100.0); Mean Platelet Volume 9.4; Monocytes # (A) 0.5 k/uL (0-1.0); Monocytes % (A) 4 %; Neutrophils # (A) 9.2 k/uL (1.3-7.7); Neutrophils % (A) 83 %; Platelet Count 220 k/uL (150-450); RBC 4.25 m/uL (4.30-5.90); RDW 14.1 % (11.5-15.5); WBC 11.2 k/uL (3.8-10.6)
[2022-07-04 06:05] LABS: Calcium 8.8 mg/dL (8.4-10.2); Potassium 4.5 mmol/L (3.5-5.1)
[2022-07-04 06:10] LABS: Glucose,Whole Blood 288 mg/dL (70-110)
[2022-07-04] MEDS: LEVOTHYROXINE 50 MCG TAB PO SCH (06:14)
[2022-07-04] MEDS: carvediloL 6.25 MG TAB PO SCH (06:14)
[2022-07-04] MEDS: INSULIN ASPART (NovoLOG) 100 UNIT/ML VIAL SQ SCH ×3 (06:14→16:44)
[2022-07-04] MEDS: PANTOPRAZOLE 40 MG TABLET PO SCH (08:05)
[2022-07-04] MEDS: CLOPIDOGREL 75 MG TAB PO SCH (08:05)
[2022-07-04] MEDS: SACUBITRIL/VALSARTAN 24 MG-26 MG TABLET PO SCH ×2 (08:05→21:14)
[2022-07-04] MEDS: ISOSORBIDE MONONITRATE ER 30 MG TAB.ER.24H PO SCH (08:05)
[2022-07-04] MEDS: ASPIRIN 81 MG PO SCH (08:05)
[2022-07-04] MEDS: SPIRONOLACTONE 25 MG TAB PO SCH (08:05)
[2022-07-04] MEDS: FUROSEMIDE 40 MG TAB PO SCH (08:05)
[2022-07-04] MEDS: AMIODARONE 200 MG TAB PO SCH ×2 (08:05→21:14)
[2022-07-04] MEDS: GABAPENTIN 300 MG CAP PO SCH ×3 (08:05→21:14)
[2022-07-04] MEDS: ATORVASTATIN 40 MG TAB PO SCH (08:05)
[2022-07-04] MEDS: SODIUM CHLORIDE 0.9% 1,000 ML IV SCH (08:06)
[2022-07-04] MEDS: MAGNESIUM OXIDE 400 MG TAB PO SCH (08:07)
--- NOTE | 2022-07-04 10:46 | P.PN ---
Subjective Progress Note Date: 07/04/22 Patient states that his abdominal pain is completely resolved. He is also denying any chest pain. Objective - Vital Signs Vital signs: Vital Signs Temp 97.8 F 07/04/22 08:08 Pulse 60 07/04/22 08:08 Resp 18 07/04/22 08:08 BP 120/55 07/04/22 08:08 Pulse Ox 96 07/04/22 08:08 FiO2 Intake & Output 07/03/22 07/04/22 07/04/22 18:59 06:59 18:59 Intake Total 136.092 665 420 Output Total 275 400 Balance -138.908 265 420 Intake: IV 50 Intake, IV Titration 86.092 Amount Heparin Sod,Pork in 0.45% 86.092 NaCl 25,000 unit In 0.45 % NaCl 1 250ml.bag @ 7.8 UNITS/KG/HR 9.906 mls/hr IV .Q24H [facility] Rx#: [id number] Oral 665 420 Output: Urine 275 400 Other: Voiding Method Urinal Urinal Urinal # Voids 1 - Exam General examination - Alert and Oriented 3 in NAD Heart - + S1S2 no murmurs Lungs - Clear to auscultation Abdomen soft NT ND +ve BS Extremities - No edema 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3-7.7) k/uL BUN 27 H (9-20) mg/dL Glucose 300 H (74-99) mg/dL POC Glucose (mg/dL) 288 H (70-110) mg/dL Assessment and Plan Assessment: SVT Cardiology started patient on amiodarone 2 mg twice a day Resume Coreg Cardiology on board Resolved Non-ST elevation IN History of coronary artery disease status post stenting and CABG Status post left heart catheterization on 07/03/2022 with stent to the distal anastomatic site to SVG to OM Resume aspirin and Plavix and Imdur and statin Patient now off heparin drip Vague lower quadrant Abdominal pain: Resolved CT abdomen and pelvis was unremarkable and just showed increased laxity in the lower abdomen Patient denying any UTI symptoms Patient's abdominal pain has resolved Chronic systolic heart failure Patient euvolemic and compensated Resume Lasix Resume Entrusto Resume cardiac meds Cardiology started the patient and spironolactone Hyperlipidemia Resume statin Hypertension Resume home BP meds Diabetes mellitus Resume current insulin regimen DVT prophylaxis: Heparin drip Disposition: We'll discharge the patient cleared by cardiology
--- NOTE | 2022-07-04 10:47 | P.PN ---
Subjective Progress Note Date: 07/04/22 PROGRESS NOTE The patient is an 82-year-old male with a known history of CAD, he presented with abdominal discomfort and troponin elevation insistent with non-STEMI. He underwent cardiac catheterization yesterday and stenting of the saphenous vein graft to the OM. His GAVIRIA to the LAD was patent and he has mild to moderate diffuse disease in the RCA. He's feeling well this morning. He has no chest discomfort, dizziness or palpitations. He continues to be in sinus mechanism. Hemodynamically stable. Medications: Amiodarone 200 mg twice a day, aspirin, Lipitor 40 mg daily, Coreg 6.25 mg twice a day, Plavix 75 mg daily, insulin, isosorbide mononitrate 30 mg daily,Entresto 2426 twice a day, Aldactone 25 mg daily PHYSICAL EXAMINATION: Blood pressure 120/50 heart rate 60, his blood pressure was elevated earlier LUNGS: Clear to auscultation HEART: Regular rate and rhythm, S1, S2. No S3. systolic ejection murmur ABDOMEN: Soft, nontender, no organomegaly EXTREMETIES: No edema, left groin no hematoma LAB: Hemoglobin 12.7, BUN 27, creatinine 1.09 IMPRESSION: 1. Status post non-STEMI stenting of the SVG to the OM 2. Post CABG 3. Ischemic cardiomyopathy 4. Hyperlipidemia 5. Diabetes mellitus 6. Ventricular tachycardia PLAN: 1. Increase beta robert 2. Add Farxiga 3. Increase activity 4. If stable probable discharge home tomorrow and follow-up with Dr. Villa. If he has further episodes of ventricular tachycardia may need to be evaluated for ICD implantation. Objective - Vital Signs Vital signs: Vital Signs Temp 97.8 F 07/04/22 08:08 Pulse 60 07/04/22 08:08 Resp 18 07/04/22 08:08 BP 120/55 07/04/22 08:08 Pulse Ox 96 07/04/22 08:08 FiO2 Intake & Output 07/03/22 07/04/22 07/04/22 18:59 06:59 18:59 Intake Total 136.092 665 420 Output Total 275 400 Balance -138.908 265 420 Intake: IV 50 Intake, IV Titration 86.092 Amount Heparin Sod,Pork in 0.45% 86.092 NaCl 25,000 unit In 0.45 % NaCl 1 250ml.bag @ 7.8 UNITS/KG/HR 9.906 mls/hr IV .Q24H [facility] Rx#: [id number] Oral 665 420 Output: Urine 275 400 Other: Voiding Method Urinal Urinal Urinal # Voids 1 - Labs CBC & Chem 7: 07/04/22 04:47 07/04/22 04:47 Labs: Abnormal Lab Results - Last 24 Hours (Table) 07/03/22 07/03/22 07/04/22 Range/Units 17:14 20:16 04:47 WBC 11.2 H (3.8-10.6) k/uL RBC 4.25 L (4.30-5.90) m/uL Hgb 12.7 L (13.0-17.5) gm/dL Hct 38.1 L (39.0-53.0) % Neutrophils # 9.2 H (1.3-7.7) k/uL BUN (9-20) mg/dL Glucose (74-99) mg/dL POC Glucose (mg/dL) 238 H 382 H (70-110) mg/dL 07/04/22 07/04/22 Range/Units 04:47 06:08 WBC (3.8-10.6) k/uL RBC (4.30-5.90) m/uL Hgb (13.0-17.5) gm/dL Hct (39.0-53.0) % Neutrophils # (1.3-7.7) k/uL BUN 27 H (9-20) mg/dL Glucose 300 H (74-99) mg/dL POC Glucose (mg/dL) 288 H (70-110) mg/dL
[2022-07-04 11:38] LABS: Glucose,Whole Blood 237 mg/dL (70-110)
[2022-07-04] MEDS: DAPAGLIFLOZIN PROPANEDIOL 10 MG TABLET PO SCH (11:53)
[2022-07-04 16:14] LABS: Glucose,Whole Blood 213 mg/dL (70-110)
[2022-07-04] MEDS: carvediloL 12.5 MG TAB PO SCH (16:44)
[2022-07-04] MEDS: traMADol 50 MG TAB PO PRN (18:25)
[2022-07-04 20:06] LABS: Glucose,Whole Blood 278 mg/dL (70-110)
[2022-07-04] MEDS: INSULIN DETEMIR (LEVEMIR) 100 UNIT/ML SYR SQ SCH (21:14)
[2022-07-05] MEDS: SODIUM CHLORIDE 0.9% 1,000 ML IV SCH (05:58)
[2022-07-05] MEDS: INSULIN ASPART (NovoLOG) 100 UNIT/ML VIAL SQ SCH ×2 (05:59→11:55)
[2022-07-05 06:00] LABS: Glucose,Whole Blood 136 mg/dL (70-110)
[2022-07-05] MEDS: carvediloL 12.5 MG TAB PO SCH (06:00)
[2022-07-05] MEDS: LEVOTHYROXINE 50 MCG TAB PO SCH (06:00)
[2022-07-05] MEDS: DAPAGLIFLOZIN PROPANEDIOL 10 MG TABLET PO SCH (07:42)
[2022-07-05] MEDS: PANTOPRAZOLE 40 MG TABLET PO SCH (07:42)
[2022-07-05] MEDS: GABAPENTIN 300 MG CAP PO SCH ×2 (07:42→16:51)
[2022-07-05] MEDS: ATORVASTATIN 40 MG TAB PO SCH (07:42)
[2022-07-05] MEDS: FUROSEMIDE 40 MG TAB PO SCH (07:43)
[2022-07-05] MEDS: ASPIRIN 81 MG PO SCH (07:43)
[2022-07-05] MEDS: MAGNESIUM OXIDE 400 MG TAB PO SCH (07:43)
[2022-07-05] MEDS: AMIODARONE 200 MG TAB PO SCH (07:43)
[2022-07-05] MEDS: CLOPIDOGREL 75 MG TAB PO SCH (07:43)
[2022-07-05] MEDS: SACUBITRIL/VALSARTAN 24 MG-26 MG TABLET PO SCH (07:43)
[2022-07-05] MEDS: ISOSORBIDE MONONITRATE ER 30 MG TAB.ER.24H PO SCH (07:43)
[2022-07-05] MEDS: SPIRONOLACTONE 25 MG TAB PO SCH (07:43)
[2022-07-05 07:48] VITALS: RESP 16; TEMP 98.6
[2022-07-05 08:26] LABS: Potassium 3.9 mmol/L (3.5-5.1)
[2022-07-05 11:54] LABS: Glucose,Whole Blood 105 mg/dL (70-110)
[2022-07-05 12:28] VITALS: BP 105/57; PULSE 50
[2022-07-05 13:15] VITALS: BMI 34.6
--- NOTE | 2022-07-05 13:26 | P.PN ---
Subjective Progress Note Date: 07/05/22 The patient is an 82-year-old male with a known history of CAD, he presented with abdominal discomfort and troponin elevation insistent with non-STEMI. He underwent cardiac catheterization yesterday and stenting of the saphenous vein graft to the OM. His GAVIRIA to the LAD was patent and he has mild to moderate diffuse disease in the RCA. He's feeling well this morning. He has no chest discomfort, dizziness or palpitations. He continues to be in sinus mechanism without episodes of ventricular arrhythmia. Hemodynamically stable. Medications: Amiodarone 200 mg twice a day, aspirin, Lipitor 40 mg daily, Coreg 12.5 mg twice a day, Plavix 75 mg daily, insulin, isosorbide mononitrate 30 mg daily,Entresto 2426 twice a day, Aldactone 25 mg daily PHYSICAL EXAMINATION: Blood pressure 120/50 heart rate 60, his blood pressure was elevated earlier LUNGS: Clear to auscultation HEART: Regular rate and rhythm, S1, S2. No S3. systolic ejection murmur ABDOMEN: Soft, nontender, no organomegaly EXTREMETIES: No edema, left groin no hematoma LAB: Hemoglobin 12.7, BUN 27, creatinine 1.09 IMPRESSION: 1. Status post non-STEMI stenting of the SVG to the OM 2. Post CABG 3. Ischemic cardiomyopathy 4. Hyperlipidemia 5. Diabetes mellitus 6. Ventricular tachycardia PLAN: 1. continue current cardiac medications 2. patient is cleared by cardiology for discharge and may follow-up with Dr. Villa. Nurse practitioner note has been reviewed, I agree with the documented findings and plan of care. Patient was seen and examined. Objective - Vital Signs Vital signs: Vital Signs Temp 98.6 F 07/05/22 07:38 Pulse 59 L 07/05/22 07:38 Resp 16 07/05/22 07:38 BP 154/71 07/05/22 07:38 Pulse Ox 97 07/05/22 07:49 FiO2 21 07/05/22 07:49 Intake & Output 07/04/22 07/05/22 07/05/22 18:59 06:59 18:59 Intake Total 610 120 Output Total 600 275 Balance 10 120 -275 Weight 100.3 kg Intake: IV 10 Invasive Line 5 10 Oral 600 120 Output: Urine 600 275 Other: Voiding Method Urinal Toilet Toilet Urinal Urinal # Voids 1 # Bowel Movements 0 - Labs CBC & Chem 7: 07/04/22 04:47 07/05/22 06:57 Labs: Abnormal Lab Results - Last 24 Hours (Table) 07/04/22 07/04/22 07/04/22 Range/Units 11:37 16:12 20:05 BUN (9-20) mg/dL Glucose (74-99) mg/dL POC Glucose (mg/dL) 237 H 213 H 278 H (70-110) mg/dL 07/05/22 07/05/22 Range/Units 05:59 06:57 BUN 31 H (9-20) mg/dL Glucose 113 H (74-99) mg/dL POC Glucose (mg/dL) 136 H (70-110) mg/dL
[2022-07-05] MEDS: traMADol 50 MG TAB PO PRN (13:52)
--- NOTE | 2022-07-05 14:29 | P.DS ---
Providers Date of admission: 07/02/22 06:33 Attending physician: Handy San MD Consults: 07/02/22 06:33 Consult Physician Routine Consulting Provider: Will Villa Consult Reason/Comments: chest pain, tachydysrhythmia Do you want consulting provider notified?: Yes 07/03/22 14:39 Consult Physician Routine Consulting Provider: [facility] Consult Reason/Comments: Post Interventional Patient Do you want consulting provider notified?: Already Contacted Primary care physician: Dean Bryant [facility] Course: Discharge Diagnosis: NSTEMI NSVT Vague lower quadrant abdominal pain Chronic systolic heart failure Hyperlipidemia Hypertension Diabetes mellitus Hospital Course: Patient is a 82-year-old male with a past medical history of chronic systolic heart failure, hyperlipidemia, hypertension, diabetes mellitus, dementia, history of NSVT, coronary artery disease status post CABG and stenting who presented to the ED with chest pain. In the ED patient was found to have NSVT. Patient was started on amiodarone drip. Patient's troponins increased greater than 8. Patient was started on heparin drip for non-ST elevation TN. Cardiology did heart catheterization and patient has stent placed to the distal anastomatic site to SVG to OM. At the time of discharge patient denied any chest pain. Patient did not have any further VT episodes. Patient was cleared by cardiology for discharge. Patient was counseled on medication compliance. Patient was also instructed regarding his medication compliance. Patient will also be set up with a home care nurse. Patient is a poor historian secondary to dementia. Patient will resume his aspirin and Plavix and statin. His amiodarone was increased to 20 mg twice a day and is also started on spironolactone and farxiga. 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 Patient Condition at Discharge: Fair Plan - Discharge Summary Discharge Rx Participant: No New Discharge Prescriptions: New Aspirin 81 mg PO DAILY 30 Days #30 tab Amiodarone [Cordarone] 200 mg PO BID 14 Days #28 tab Atorvastatin [Lipitor] 40 mg PO DAILY 30 Days #30 tab Spironolactone [Aldactone] 25 mg PO DAILY 30 Days #30 tab Dapagliflozin Propanediol [Farxiga] 10 mg PO DAILY 30 Days #30 tab Clopidogrel [Plavix] 75 mg PO DAILY@0900 30 Days #30 tab Continue Multivitamins, Thera [Multivitamin (formulary)] 1 tab PO DAILY@0900 Acetaminophen Tab [Tylenol] 650 mg PO Q6H PRN PRN Reason: Pain Nitroglycerin Sl Tabs [Nitrostat] 0.4 mg SUBLINGUAL Q5M PRN #30 tab PRN Reason: Chest Pain Insulin Glargine [Lantus Vial] 60 unit SQ DAILY@0900 Gabapentin 600 mg PO TID@0900,1600,2100 Isosorbide Mononitrate ER [Imdur] 15 mg PO QAM Cholecalciferol [Vitamin D3 (25 Mcg = 1000 Iu)] 25 mcg PO HS@2100 Omeprazole 40 mg PO DAILY@0900 INSULIN ASPART (NovoLOG) [NovoLOG (formulary)] See Protocol SQ ACHS Meclizine [Antivert] 25 mg PO TID PRN PRN Reason: Vertigo carvediloL [Coreg] 3.125 mg PO BID-W/MEALS tab Furosemide [Lasix] 40 mg PO DAILY tab Calcium Carbonate [Tums] 500 mg PO QID PRN PRN Reason: Heartburn Docusate [Colace] 100 mg PO BID Nystatin 100,000Unit/gm Cream [Mycostatin Cream] 1 applic TOPICAL BID Sacubitril/Valsartan [Entresto 24 mg-26 mg Tablet] 1 tab PO BID traMADol HCL [Ultram] 50 mg PO Q6H Zinc 50 mg PO DAILY@0900 Magnesium Oxide [Mag-Ox] 400 mg PO DAILY tab Levothyroxine Sodium [Synthroid] 50 mcg PO DAILY Discontinued Pravastatin Sodium [Pravachol] 40 mg PO HS@2100 Aspirin EC [Ecotrin Low Dose] 81 mg PO DAILY Clopidogrel [Plavix] 75 mg PO DAILY@0900 Amiodarone [Cordarone] 100 mg PO DAILY@0900 tab Discharge Medication List Multivitamins, Thera [Multivitamin (formulary)] 1 tab PO DAILY@0900 07/04/18 [History] Acetaminophen Tab [Tylenol] 650 mg PO Q6H PRN 09/14/18 [History] Nitroglycerin Sl Tabs [Nitrostat] 0.4 mg SUBLINGUAL Q5M PRN #30 tab 11/02/18 [Rx] Insulin Glargine [Lantus Vial] 60 unit SQ DAILY@0900 12/14/18 [History] Gabapentin 600 mg PO TID@0900,1600,2100 02/08/19 [History] Isosorbide Mononitrate ER [Imdur] 15 mg PO QAM 02/08/19 [History] Cholecalciferol [Vitamin D3 (25 Mcg = 1000 Iu)] 25 mcg PO HS@2100 03/13/21 [History] INSULIN ASPART (NovoLOG) [NovoLOG (formulary)] See Protocol SQ ACHS 03/13/21 [History] Meclizine [Antivert] 25 mg PO TID PRN 03/13/21 [History] Omeprazole 40 mg PO DAILY@0900 03/13/21 [History] Zinc 50 mg PO DAILY@0900 03/13/21 [History] Furosemide [Lasix] 40 mg PO DAILY tab 03/18/21 [Rx] Magnesium Oxide [Mag-Ox] 400 mg PO DAILY tab 03/18/21 [Rx] carvediloL [Coreg] 3.125 mg PO BID-W/MEALS tab 03/18/21 [Rx] Calcium Carbonate [Tums] 500 mg PO QID PRN 07/02/22 [History] Docusate [Colace] 100 mg PO BID 07/02/22 [History] Levothyroxine Sodium [Synthroid] 50 mcg PO DAILY 07/02/22 [History] Nystatin 100,000Unit/gm Cream [Mycostatin Cream] 1 applic TOPICAL BID 07/02/22 [History] Sacubitril/Valsartan [Entresto 24 mg-26 mg Tablet] 1 tab PO BID 07/02/22 [History] traMADol HCL [Ultram] 50 mg PO Q6H 07/02/22 [History] Amiodarone [Cordarone] 200 mg PO BID 14 Days #28 tab 07/05/22 [Rx] Aspirin 81 mg PO DAILY 30 Days #30 tab 07/05/22 [Rx] Atorvastatin [Lipitor] 40 mg PO DAILY 30 Days #30 tab 07/05/22 [Rx] Clopidogrel [Plavix] 75 mg PO DAILY@0900 30 Days #30 tab 07/05/22 [Rx] Dapagliflozin Propanediol [Farxiga] 10 mg PO DAILY 30 Days #30 tab 07/05/22 [Rx] Spironolactone [Aldactone] 25 mg PO DAILY 30 Days #30 tab 07/05/22 [Rx] Follow up Appointment(s)/Referral(s): Will Villa DO [STAFF PHYSICIAN] - 1 Week Dean Evangelista MD [Primary Care Provider] - 1-2 days [facility], [NON-STAFF] - Discharge Disposition: HOME WITH HOME HEALTH SERVICES
--- NOTE | 2022-07-06 12:08 | P.PN ---
Progress Note - Text Progress Note Date: 07/06/22 Patient's called the nursing unit concern the patient has been on eliquis at home and was not taking it in the hospital and is not in his paperwork for discharge. Patient apparently was on Pradaxa for a long period of time and then switched to eliquis due to insurance coverage. Dr. Evangelista was the physician filling out the eliquis authorization. Chart was reviewed with Dr. Eubanks recommendations for patient to continue eliquis and Plavix and discontinue aspirin. Patient does have an appointment with Dr. Villa on 07/12 and medications may be further clarified at that time.
== END 2022-07-05 17:03 | disposition home health service (06) | DRG 246 ==
LOC: EC 04:15 → 3SCARD 06:33
PROVIDERS: ADMIT Internal Medicine; ATTEND Internal Medicine
PROC: 4A023N7 Measurement of Cardiac Sampling and Pressure, Left Heart, Percutaneous Approach (ICD-10-PCS; 2022-07-03)
PROC: B2111ZZ Fluoroscopy of Multiple Coronary Arteries using Low Osmolar Contrast (ICD-10-PCS; 2022-07-03)
PROC: 027034Z Dilation of Coronary Artery, One Artery with Drug-eluting Intraluminal Device, Percutaneous Approach (ICD-10-PCS; principal; 2022-07-03 11:30)
PROC: 02703ZZ Dilation of Coronary Artery, One Artery, Percutaneous Approach (ICD-10-PCS; 2022-07-03 11:30)
DX: I47.1 Supraventricular tachycardia (principal); I21.4 Non-ST elevation (NSTEMI) myocardial infarction; F03.94 Unspecified dementia, unspecified severity, with anxiety; I50.22 Chronic systolic (congestive) heart failure; I25.810 Atherosclerosis of coronary artery bypass graft(s) without angina pectoris; I11.0 Hypertensive heart disease with heart failure; I25.5 Ischemic cardiomyopathy; E78.5 Hyperlipidemia, unspecified; K21.9 Gastro-esophageal reflux disease without esophagitis; E11.9 Type 2 diabetes mellitus without complications; N40.0 Benign prostatic hyperplasia without lower urinary tract symptoms; E03.9 Hypothyroidism, unspecified; I25.2 Old myocardial infarction; I45.10 Unspecified right bundle-branch block; Z88.0 Allergy status to penicillin; Z88.8 Allergy status to other drugs, medicaments and biological substances; Z91.041 Radiographic dye allergy status; K58.9 Irritable bowel syndrome, unspecified; G47.33 Obstructive sleep apnea (adult) (pediatric); K57.90 Diverticulosis of intestine, part unspecified, without perforation or abscess without bleeding; R10.30 Lower abdominal pain, unspecified; I08.0 Rheumatic disorders of both mitral and aortic valves; M19.90 Unspecified osteoarthritis, unspecified site; G89.29 Other chronic pain; I27.20 Pulmonary hypertension, unspecified; Z86.14 Personal history of Methicillin resistant Staphylococcus aureus infection; Z79.01 Long term (current) use of anticoagulants; Z79.02 Long term (current) use of antithrombotics/antiplatelets; Z79.82 Long term (current) use of aspirin; Z79.890 Hormone replacement therapy; Z79.899 Other long term (current) drug therapy; Z85.46 Personal history of malignant neoplasm of prostate; Z86.79 Personal history of other diseases of the circulatory system; Z87.19 Personal history of other diseases of the digestive system; Z95.5 Presence of coronary angioplasty implant and graft; J84.89 Other specified interstitial pulmonary diseases; Z96.652 Presence of left artificial knee joint; Z90.49 Acquired absence of other specified parts of digestive tract; Z86.010 Personal history of colon polyps; Z87.01 Personal history of pneumonia (recurrent)
CPT/HCPCS: 36415; 71045; 74177; 80048; 80053; 83036; 83735; 84484; 85025; 85610; 85730; 93005; 93306; 93459; 94760; 96361; 96365; 96366; 99291

== ENCOUNTER → 2022-11-17 | Outpatient (CLI) | payer MEDICARE, BC ==
--- NOTE | 2022-11-17 09:54 | CT ---
EXAMINATION TYPE: CT abdomen pelvis wo con DATE OF EXAM: 11/17/2022 COMPARISON: 07/02/2022. HISTORY: RLQ pain CT DLP: 1029 mGycm Automated exposure control for dose reduction was used. TECHNIQUE: Helical acquisition of images was performed from the lung bases through the pelvis. FINDINGS: LOWER CHEST : The visualized lung bases are clear. There are no pleural or pericardial effusions. ABDOMEN: Liver and Biliary system: Normal. Adrenal glands: Normal. Kidneys and ureters: There is a 2.9 cm simple cyst in the interpolar region of the left kidney. There is a simple cyst also seen in the inferior pole the left kidney measuring 2.1 cm in diameter. There are no renal stones, ureteral stones or hydronephrosis. Spleen: Normal. Pancreas: Normal. Gallbladder: Absent. Lymph nodes, Peritoneum and mesentery: There is no mesenteric or retroperitoneal lymphadenopathy. Gastrointestinal tract: There are no dilated loops of bowel or free intraperitoneal air. The appe ndix is not clearly seen with no secondary changes of appendicitis otherwise identified. There is mil d sigmoid colonic diverticulosis without evidence of diverticulitis. Aorta/IVC: There is moderate vascular calcification throughout the abdominal aorta without evidence of aneurysmal dilation IVC normal. Abdominal wall: Normal. PELVIS: Fluid: There is no free fluid in the pelvis. Lymph Nodes: There is no pelvic or inguinal lymphadenopathy.. Urinary bladder: Normal. BONES: There is fusion of the space of L4-5. Multilevel degenerative disc and facet changes are othe rwise noted. There are no acute osseous abnormalities. ADDITIONAL SIGNIFICANT FINDINGS: None. IMPRESSION: 1. No renal stones or hydronephrosis. 2. Diverticulosis without evidence of diverticulitis. 3. No acute process otherwise seen within the abdomen or pelvis.
== END | disposition home or self-care (01) ==
LOC: RADCTMAIN 09:05
PROVIDERS: ATTEND Family Medicine
DX: K57.30 Diverticulosis of large intestine without perforation or abscess without bleeding (principal); R10.31 Right lower quadrant pain
CPT/HCPCS: 74176